=== PATIENT | male | born 1965 | race Caucasian/White ===

== ENCOUNTER 2022-01-09 09:43 | Emergency (ER) | payer OTHER, SELFPAY ==
[2022-01-09 09:44] VITALS: BP 160/92; PULSE 54; RESP 16; TEMP 36.6; O2SAT 99; BMI 31.1
[2022-01-09 10:22] LABS: Hematocrit 47.3 % (40-54); Hemoglobin 16.5 g/dL (13.0-16.5); Mean Corp Hgb Conc 34.9 g/dL (32-36); Mean Corpuscular Hgb 30.8 pg (27.0-32.0); Mean Corpuscular Volume 88.2 fL (80-94); RBC Distribution Width CV 12.2 % (11.6-14.6); Red Blood Count 5.36 M/mm3 (4.6-6.2)
[2022-01-09 10:23] LABS: Absolute Lymphocyte Count 1.66 X10^3/uL (0.83-4.51); Absolute Neutrophil Count 2.9 X10^3/uL (2.0-7.7); Basophil# 0.02 X10^3/uL; Basophil% 0.4 % (0-1); Eosinophil# 0.08 X10^3/uL; Eosinophils% 1.6 % (0-5); Lymphocyte # 1.66 X10^3/ul (0.83-4.51); Lymphocyte % 33.1 % (19-41); Mean Platelet Vol. 11.7 fl (6.2-12.0); Monocyte# 0.37 X10^3/uL; Monocyte% 7.4 % (0-10); NRBC Flagged by Analyzer 0 % (0-5); Neutrophil # 2.86 X10^3/uL (2.7-7.7); Neutrophil % 57.1 % (47-70); Platelet Count 153 K/mm3 (150-450); RBC Distribution Width SD 39.5 fl (35.1-43.9)
[2022-01-09 10:33] LABS: Anion Gap 2 (5-15); BUN 19 mg/dL (7-18); BUN/Creat Ratio 18.4 RATIO (10-20); Calcium,Total 8.9 mg/dL (8.5-10.1); Chloride 110 mmol/L (98-107); Creatinine, Serum 1.03 mg/dL (0.70-1.30); EST Glomerular Filtration Rate 79 mL/min (>60); Est Glom Filt Rate - Afr Amer 95 mL/min (>60); Glucose 121 mg/dL (74-106); Magnesium 1.9 mg/dL (1.6-2.6); Potassium 4.3 mmol/L (3.5-5.1); Sodium Level 139 mmol/L (136-145)
--- NOTE | 2022-01-09 11:13 | EX.ED.DYSGE1 ---
HPI History of Present Illness Chief Complaint: Numb/Ting Narrative Narrative: Patient presents with perioral numbness that he has had for the last few days. He states his symptoms began on , when he went hiking. He states that he had a hemorrhoid that he was concerned about because it was bleeding, and he states that he was embarrassed regarding it. He began having perioral numbness which she gets usually when he has anxiety. However, it extended to the right side of his face/cheek and has been relatively constant since then. He then states that it does come and go. He denies any headache. No arm or leg paresthesia, no problems with speech. He denies any other symptoms. He and his went to urgent care who referred him here. Past medical history does include anxiety, hypothyroidism, and hypertension. He admittedly only takes half of his tablet of metoprolol. He presents because of the perioral numbness. He states that it is mainly on the right side of his face, but it does extend to the left perioral area. [facility] Medical History Anxiety Cardiac murmur Judy's thyroiditis Hypothyroidism Home Medications cholecalciferol (vitamin D3) 25 mcg (1,000 unit) capsule 25 mcg PO BID cap 04/19/21 [History Last Taken Unknown] garlic 1250 mg tablet 1,250 mg PO BID tab 04/19/21 [History Last Taken Unknown] levothyroxine 75 mcg tablet tablet PO 04/19/21 [History Last Taken Unknown] mecobalamin (vitamin B12) 1,000 mcg chewable tablet 1,000 mcg PO DAILY 04/19/21 [History Last Taken Unknown] metoprolol succinate 25 mg tablet,extended release 24 hr ea PO 04/19/21 [History Last Taken Unknown] omega-3 fatty acids-fish oil 360 mg-1,200 mg capsule 1 cap PO BID 04/19/21 [History Last Taken Unknown] selenium 200 mcg capsule 200 mcg PO DAILY 04/19/21 [History Last Taken Unknown] zinc 50 mg tablet 50 mg PO DAILY 04/19/21 [History Last Taken Unknown] Allergy/AdvReac Type Severity Reaction Status Date / Time Iodinated Contrast Media Allergy Intermediate convulsions Verified 01/09/22 09:46 Family History Father Asthma Heart disease Hypertension Thyroid disorder Sister Cancer skin Surgical History History of appendectomy History of medial meniscus repair of right knee Social History Smoking Status: Former smoker ROS ROS ED ROS Narrative Constitutional: No fever, no chills. HEENT: No sore throat. No neck pain. No loss of vision. No rhinorrhea. Cardiovascular: No chest pain. No palpitations. No pedal edema. Respiratory: No cough, no shortness of breath. Abdominal: No abdominal pain. No nausea. No vomiting. Genitourinary: No dysuria. No hematuria. Musculoskeletal: No myalgias. No arthralgias. Neurologic: No headaches. No dizziness. No lightheadedness. Positive perioral numbness with paresthesias of right side of face/cheek on occasion. Skin: No rash. No change in color. Psychiatric: No depression. No anxiety. EXAM Physical Exam Narrative Exam Narrative: Afebrile. Vital signs noted. HEENT: Normocephalic. Atraumatic. PERRL, EOMI. Neck soft and supple. No point tenderness or step off. Cardiovascular: Regular rate and rhythm. No murmurs, rubs, or gallops appreciated. Respiratory: No tachypnea. Lungs clear to auscultation bilaterally. Gastrointestinal: Abdomen soft, nontender, with normoactive bowel sounds. No rebound or guarding. Neurological: Awake. Alert. Oriented. Nonfocal, nonlateralizing. NIH stroke scale is 0. No noted facial droop. No noted Dietrich's palsy. Skin: No rash. Normal color. No pallor. Musculoskeletal: No pedal edema. Full range of motion extremities. Const Vital Signs: 01/09/22 09:44 Temperature 97.9 F Temperature Source Temporal Pulse Rate 54 L Respiratory Rate 16 Blood Pressure 160/92 H Blood Pressure Mean 114 Pulse Ox 99 Oxygen Delivery Method Room Air MDM MDM MDM Narrative Medical decision making narrative: I had a lengthy discussion with the patient and his . I do not feel that a CT of the brain is indicated. There is no evidence of any deficit. I did check a CBC and he has a normal hemoglobin of 16.5. There is no pallor on examination. I do not feel that he has lost a large amount of blood from his reported hemorrhoid. His electrolytes are grossly unremarkable. He has a chloride elevated at 110 which I think is nonspecific. Although his BUN is elevated at 19 with a creatinine of 1.03, I do not feel that this is a profound dehydration that requires IV fluids. His magnesium is normal at 1.9. Calcium normal at 8.9. Glucose appropriately elevated at 121 with a low anion gap of 2. When we were discussing his results, it was noted by his that he does have Xanax written for when he has anxiety. However, he does not like to take this. I do feel that the numbness around his mouth may have something to do with mild anxiety. He was told to take his medications as prescribed and follow-up with his primary care provider. I feel he can be discharged safely home with follow-up. Return instructions to the emergency department were reviewed. Disposition is discharged home in stable condition. Lab Data Labs: Laboratory Results - last 24 hr 01/09/22 01/09/22 10:15 10:15 WBC 5.0 RBC 5.36 Hgb 16.5 Hct 47.3 MCV 88.2 MCH 30.8 MCHC 34.9 RDW Std Deviation 39.5 RDW Coeff of Марина 12.2 Plt Count 153 MPV 11.7 Immature Gran % (Auto) 0.400 Neut % (Auto) 57.1 Lymph % (Auto) 33.1 [place] % (Auto) 7.4 Eos % (Auto) 1.6 Baso % (Auto) 0.4 Absolute Neuts (auto) 2.9 Absolute Lymphs (auto) 1.66 Nucleated RBC % 0 Sodium 139 Potassium 4.3 Chloride 110 H Carbon Dioxide 27.0 Anion Gap 2 L BUN 19 H Creatinine 1.03 Estim Creat Clear Calc 85.80 Est GFR (MDRD) Af Amer 95 Est GFR (MDRD) Non-Af 79 BUN/Creatinine Ratio 18.4 Glucose 121 H Calcium 8.9 Magnesium 1.9 Discharge Plan Triage Chief Complaint: Numb/Ting ED Provider: Shady Reyes Dx/Rx/DC Orders Clinical Impression: Perioral numbness Instructions: ED Neuropathy, Peripheral Prescriptions: No Action levothyroxine 75 mcg tablet PO RF: 0 metoprolol succinate 25 mg tablet extended release 24 hr PO RF: 0 cholecalciferol (vitamin D3) 25 mcg (1,000 unit) capsule 25 mcg PO BID RF: 0 garlic 1,250 mg tablet 1,250 mg PO BID RF: 0 B12 Active 1,000 mcg tablet,chewable 1,000 mcg PO DAILY RF: 0 selenium 200 mcg capsule 200 mcg PO DAILY RF: 0 omega-3 fatty acids-fish oil [Fish Oil] 360-1,200 mg capsule 1 cap PO BID RF: 0 zinc 50 mg tablet 50 mg PO DAILY RF: 0 Primary Care Provider: Alverto Ceja Referrals: Alverto Ceja, [Primary Care Provider] - 1-2 Days if not improving Disposition Disposition: Home, Self Care
== END 2022-01-09 11:28 | disposition home or self-care (01) ==
PROVIDERS: Emergency Provider Emergency Medicine; PCP Student in an Organized Health Care Education/Training Program; Visit Provider Emergency Medicine
DX: R20.2 Paresthesia of skin (principal); F41.9 Anxiety disorder, unspecified; I10 Essential (primary) hypertension; E03.9 Hypothyroidism, unspecified; Z79.890 Hormone replacement therapy; Z79.899 Other long term (current) drug therapy; Z87.891 Personal history of nicotine dependence
CPT/HCPCS: 80048; 83735; 85025; 99283; A4216

== ENCOUNTER 2022-07-02 01:56 | Emergency (ER) | payer OTHER, SELFPAY ==
[2022-07-02 01:57] VITALS: BP 152/95; PULSE 79; RESP 15; TEMP 36.4; O2SAT 97; BMI 27.5
--- NOTE | 2022-07-02 02:00 | ED.RN ---
NO OLD EKGS ON FILE
--- NOTE | 2022-07-02 02:17 | EKG12_ITS ---
Test Reason : CP Blood Pressure : / mmHG Vent. Rate : 084 BPM Atrial Rate : 084 BPM P-R Int : 126 ms QRS Dur : 092 ms QT Int : 406 ms P-R-T Axes : 011 033 038 degrees QTc Int : 479 ms Normal sinus rhythm Low voltage QRS (Limb Leads) Septal infarct , age undetermined Abnormal ECG Confirmed by JO ANN CONNER, EDIL ([id number]), acquisition editor SHELBY LASSITER ([id number]) on 07/05/2022 7:48:43 AM Referred By: WILLIS Confirmed By:EDIL CHERRY MD
--- NOTE | 2022-07-02 02:17 | RAD_ITS ---
EXAM: XR CHEST, 1 VIEW CLINICAL INDICATION: chest pain TECHNIQUE: Frontal view of the chest. This report was created using [employer] report generation technology. COMPARISON: None. FINDINGS: LUNGS AND PLEURAL SPACES: Unremarkable. No consolidation or edema. No pneumothorax. No effusion. HEART: Unremarkable. Cardiac silhouette not enlarged. MEDIASTINUM: Central airways and mediastinal contour are unremarkable. BONES/JOINTS: Unremarkable. SOFT TISSUES: Unremarkable. RAD/Chest 1 View (Portable) IMPRESSION: No radiographic evidence of acute cardiopulmonary disease. Electronically Signed: Shashi Ferrara MD at 2:50 EDT ,
[2022-07-02 02:26] LABS: Absolute Lymphocyte Count 3.12 X10^3/uL (0.83-4.51); Absolute Neutrophil Count 4.7 X10^3/uL (2.0-7.7); Basophil# 0.04 X10^3/uL; Basophil% 0.5 % (0-1); Eosinophil# 0.16 X10^3/uL; Eosinophils% 1.9 % (0-5); Hematocrit 45.4 % (40-54); Hemoglobin 15.4 g/dL (13.0-16.5); Lymphocyte # 3.12 X10^3/ul (0.83-4.51); Lymphocyte % 36.1 % (19-41); Mean Corp Hgb Conc 33.9 g/dL (32-36); Mean Corpuscular Hgb 30.3 pg (27.0-32.0); Mean Corpuscular Volume 89.4 fL (80-94); Mean Platelet Vol. 11.7 fl (6.2-12.0); Monocyte# 0.59 X10^3/uL; Monocyte% 6.8 % (0-10); NRBC Flagged by Analyzer 0 % (0-5); Neutrophil # 4.69 X10^3/uL (2.7-7.7); Neutrophil % 54.2 % (47-70); Platelet Count 148 K/mm3 (150-450); RBC Distribution Width CV 12.2 % (11.6-14.6); Red Blood Count 5.08 M/mm3 (4.6-6.2); White Blood Count 8.6 K/mm3 (4.4-11.0)
--- NOTE | 2022-07-02 02:30 | ED.VIS.CHEST ---
HPI History of Present Illness Chief Complaint: Chest Pain Detail of Chief Complaint: Back pain. History of bicuspid aortic valve and aortic aneurysm which ther Informant: patient and spouse/S.O. Onset/Context/Timing Onset: Today Timing: Continuous Quality: Positive for Aching Location: Substernal Current Severity: Mild Maximum Severity: Mild Worsened By: Nothing Relieved By: Nothing Associated Symptoms: Positive for - (Back pain associated with his chest pain.); Negative for Nausea, Vomiting, Diaphoresis, Dyspnea, Cough, Fever, Lightheadedness, Acid Reflux or Palpitations Narrative Narrative: 57-year-old male history of a bicuspid aortic valve and thoracic aneurysm which are being watched. He had a history of tachycardia for which she was on beta-nura recently that was stopped by his primary care physician. He does not smoke. He has never had cardiac disease otherwise. He has had upper back discomfort today and chest tightness which started about an hour or so ago. He is also having some neck discomfort. His pressure was elevated at home at 194/80. He denies any history of DVT or PE. No recent travel or surgery. No leg pain or swelling. No hemoptysis. Patient states that last time he had CAT scan dye had convulsions. If we need to obtain a CT of his chest which I do think we will due to his chest discomfort, back discomfort and elevated blood pressure with his history of bicuspid valve and thoracic aneurysm he will be pretreated with Solu-Medrol and Benadryl. Prior Similar Symptoms: Yes and No Recent Illness/Hospitalization: No CVD Risk Factors: Negative for Hypertension, Diabetes, Family History 1' </=55 or Smoking PE Risk Factors: Negative for Recent Travel/Surgery, Recent Immobilization, Prior DVT or PE, Cancer or OCP + Smoking + >/=35 TAD Risk Factors: Negative for Marfan's Syndrome [facility] Medical History (Updated 07/02/22 @ 05:[address] Mark Grullon MD) Anxiety Aortic aneurysm Cardiac murmur Former tobacco use Judy's thyroiditis Hypothyroidism Home Medications cholecalciferol (vitamin D3) 25 mcg (1,000 unit) capsule 25 mcg PO BID 04/19/21 [History Last Taken Unknown] garlic 1250 mg tablet 1,250 mg PO BID 04/19/21 [History Last Taken Unknown] levothyroxine 75 mcg tablet tablet PO 04/19/21 [History Last Taken Unknown] mecobalamin (vitamin B12) 1,000 mcg chewable tablet (B12 Active) 1,000 mcg PO DAILY 04/19/21 [History Last Taken Unknown] metoprolol succinate 25 mg tablet,extended release 24 hr ea PO 04/19/21 [History Last Taken Unknown] omega-3 fatty acids-fish oil 360 mg-1,200 mg capsule (Fish Oil) 1 cap PO BID 04/19/21 [History Last Taken Unknown] selenium 200 mcg capsule 200 mcg PO DAILY 04/19/21 [History Last Taken Unknown] zinc 50 mg tablet 50 mg PO DAILY 04/19/21 [History Last Taken Unknown] Allergy/AdvReac Type Severity Reaction Status Date / Time Iodinated Contrast Media Allergy Intermediate convulsions Verified 01/09/22 09:46 Family History Father Asthma Heart disease Hypertension Thyroid disorder Sister Cancer skin Surgical History (Updated 07/02/22 @ 05:[address] Mark Grullon MD) History of appendectomy History of medial meniscus repair of right knee Social History (Updated 07/02/22 @ 04:[address] Qing Regalado MD) household members: spouse Smoking Status: Former smoker how long ago did patient quit smoking: Smoked 1 ppd x 5 years, quit 1979. alcohol intake: current alcohol intake frequency: a few times a month substance use type: does not use ROS ROS ED ROS Narrative Chest discomfort. Intrascapular back discomfort. Review of Systems ROS Unobtainable: Denies due to encephalopathy Constitutional Constitutional ED: Denies chills or fever(s) Eyes Eyes: Reports none ENT ENT ED: Denies ear pain or rhinorrhea Cardiovascular Cardiovascular: Reports as per HPI and chest pain; Denies palpitations or racing heartbeat Respiratory/Chest Respiratory/Chest: Denies cough or dyspnea Gastrointestinal Gastrointestinal: Denies abdominal pain or constipation Genitourinary Genitourinary ED: Denies dysuria or hematuria Musculoskeletal Musculoskeletal: Reports back pain; Denies arthralgias Integumentary Denies abscess or Abrasions Neurologic Neurologic: Denies headache(s) Psychiatric Psychiatric: Denies anxiety Endocrine Endocrinology: Denies cold intolerance Hematologic/Lymphatic Hematologic/Lymphatic: Denies easy bleeding Allergic/Immunologic Allergic/Immunologic ED: Denies mouth swelling or tongue swelling EXAM Physical Exam Narrative Exam Narrative: Middle-aged male no acute distress vital signs stable afebrile. Pulse ox 97% on room air no signs hypoxia. H EENT exam unremarkable. Moist extremities. Neck nontender no JVD. Lungs clear to auscultation bilaterally. Heart regular rhythm no murmur rate about 75. Chest wall nontender. Abdomen soft nontender. Moving all 4 extremities. Calves nontender without edema or cords. Equal symmetrical 5/5 industrial recruiter strength. Radial pulses equal and symmetrical. Dorsi plantarflexion intact. Back no reproducible tenderness. Neurologically is awake alert with no focal motor deficits. Const Vital Signs: 07/02/22 01:57 07/02/22 03:10 07/02/22 03:10 Temperature 97.6 F L Temperature Source Oral Pulse Rate 79 72 Respiratory Rate 15 16 Blood Pressure 152/95 H 150/91 H Blood Pressure Mean 114 110 Pulse Ox 97 99 99 Oxygen Delivery Method Room Air Room Air Room Air 07/02/22 04:36 Temperature Temperature Source Pulse Rate 75 Respiratory Rate 13 Blood Pressure 129/78 H Blood Pressure Mean 95 Pulse Ox 97 Oxygen Delivery Method Room Air Positive well nourished and well developed; Negative for obese, cachectic, contractures or unkempt General Appearance ED: well developed and NAD; Negative for unkempt, cachectic, contractures or pallor Nutritional Appearance: Negative for cachectic or obese HEENT Reports moist mucous membranes normocephalic and atraumatic; Negative for trauma or tenderness Eyes PERRL and EOMs intact bilaterally General Eye ED: Negative for pale conjunctiva or scleral icterus Neck no lymphadenopathy, supple and no JVD General: Negative for tenderness Chest Wall inspection of chest normal and palpation of chest normal Chest: Negative for tenderness Resp normal respiratory effort and clear to auscultation bilaterally Effort and Inspection: Negative for respiratory distress or pain with movement Auscultation: Negative for rales, rhonchi or wheezes Cardio regular rate, regular rhythm, S1 normal heart sound, S2 normal heart sound and no murmurs Rate: Negative for bradycardia Rhythm: Negative for abnormal rhythm Peripheral Pulses: pulses 2+ throughout GI normal to inspection, nondistended, normoactive bowel sounds, soft to palpation, non-tender, non-distended and no masses Auscultation: Negative for hyperactive bowel sounds Back/Spine no CVA tenderness and no thoracic nor lumbar tenderness General Back: Negative for CVA tenderness Cervical Spine: Negative for cervical spine tenderness Extremity normal to inspection General Extremety ED: Negative for edema, pulses abnormal or tenderness General Extremity: Negative for edema or pulses abnormal Neuro oriented x3 and CN's II-XII intact bilaterally Sensorium / Orientation: awake, alert, oriented to person, oriented to place and oriented to time; Negative for confused, lethargic, stuporous or other Motor Exam: strength 5/5 throughout Psych mental status grossly normal Appearance: Negative for unkempt Attitude: No agitated Mood & Affect: anxious; Negative for depressed or tearful Skin no rashes or lesions noted General Skin Exam: Negative for jaundice or pallor Rashes: No rashes noted Trauma: Negative for abrasion Heart Score History: Moderately Suspicious ECG: Normal Age: >45 - <65 years Risk Factors: No Risk Factors Troponin: </= Normal Limit Score: 2 MDM MDM MDM Narrative Medical decision making narrative: 57-year-old male history of bicuspid aortic valve and thoracic aneurysm. Has atypical chest and back discomfort I did not reproducible. I am actually less concern for myocardial infarction in the a.m. for ruling out a dissection. Patient is anxious about getting a CT due to a prior reaction. He will be worked up from a cardiac standpoint. I will hold aspirin at this time. I will pretreated with Solu-Medrol and Benadryl thinking that we will need to do a CTA of his chest to evaluating to rule out a dissection. Repeat exam patient is doing well at 3:20 AM. We discussed his work-up and so far is unremarkable. He is comfortable obtaining the CTA of his chest due to his risk factors and the nature of his discomfort with back pain. He was pretreated with both Solu-Medrol and Benadryl. I have also discussed this with the final operations technician. Patient doing well after CAT scan at 4:[address] results and second troponin. Currently is doing well. I went over his current test results. Patient doing well at 5:19 AM. Went over all his test results and CTA. He will be discharged to home. Lab Data Attestation: I reviewed the patient's lab results. Lab results narrative: CBC shows a white count 8. H&H 15 and 45. Platelets slightly low at 148,000. Electrolytes of potassium at 3.3. Gap of 5 BUN of 20 creatinine of 1. Glucose 102. Troponin 6. Chest x-ray negative. Repeat troponin was also within normal limits at 4. Labs: Laboratory Results - last 24 hr 07/02/22 07/02/22 07/02/22 02:00 02:00 04:34 WBC 8.6 RBC 5.08 Hgb 15.4 Hct 45.4 MCV 89.4 MCH 30.3 MCHC 33.9 RDW Std Deviation 40.0 RDW Coeff of Марина 12.2 Plt Count 148 L MPV 11.7 Immature Gran % (Auto) 0.500 Neut % (Auto) 54.2 Lymph % (Auto) 36.1 [place] % (Auto) 6.8 Eos % (Auto) 1.9 Baso % (Auto) 0.5 Absolute Neuts (auto) 4.7 Absolute Lymphs (auto) 3.12 Nucleated RBC % 0 Sodium 142 Potassium 3.3 L Chloride 108 H Carbon Dioxide 29.0 Anion Gap 5 BUN 20 H Creatinine 1.06 Estim Creat Clear Calc 82.36 Est GFR (MDRD) Af Amer 92 Est GFR (MDRD) Non-Af 76 BUN/Creatinine Ratio 18.9 Glucose 102 Calcium 8.7 Troponin I High Sens 6 4 Radiography Chest X-Ray - ED: 1 View, Read by ED Physician, Read by Radiologist, Heart, Lungs, Mediastinum, Bony Structures, No Acute Disease and Chronic Changes Diagnostic Testing: Clinical Impression(s) from Imaging Studies Chest X-Ray 07/02/22 02:17 IMPRESSION: No radiographic evidence of acute cardiopulmonary disease. Electronically Signed: Shashi Ferrara MD at 2:50 EDT , Chest CTA 07/02/22 03:23 IMPRESSION: 1. 4.5 cm ascending thoracic aorta without aortic dissection. 2. No PE, pneumonia or other acute disease. Electronically Signed: Shashi Ferrara MD at 4:17 EDT , Chest x-ray, portable, single view interpreted by myself and radiologist shows no acute abnormality. Normal cardiac silhouette. Normal mediastinum. CT of the chest as read by the radiologist and reviewed by me showed a 4.5 cm ascending aorta. No dissection. No bleeding. No PE. Rhythm Strip Rhythm Strip: Sinus Rhythm Rate: 84 Ectopy: None EKG Initial EKG: Attestation: I personally reviewed and interpreted this EKG as follows: Interpretation: Sinus Rhythm and No Acute Injury Pattern Comments: Normal sinus rhythm rate 84 no acute signs of HI or ischemia. No ST elevation. Discharge Plan Triage Chief Complaint: Chest Pain ED Provider: Mark Grullon Dx/Rx/DC Orders Clinical Impression: Anxiety, Chest pain, History of repair of thoracic aortic aneurysm Instructions: ED Chest Pain, Uncertain Cause Prescriptions: No Action levothyroxine 75 mcg tablet PO metoprolol succinate 25 mg tablet extended release 24 hr PO Label Comments: TAKE 1 TABLET BY MOUTH EVERYDAY AT BEDTIME cholecalciferol (vitamin D3) 25 mcg (1,000 unit) capsule 25 mcg PO BID garlic 1,250 mg tablet 1,250 mg PO BID B12 Active 1,000 mcg tablet,chewable 1,000 mcg PO DAILY selenium 200 mcg capsule 200 mcg PO DAILY omega-3 fatty acids-fish oil [Fish Oil] 360-1,200 mg capsule 1 cap PO BID zinc 50 mg tablet 50 mg PO DAILY Primary Care Provider: Alverto Ceja Referrals: Alverto Ceja DO [Primary Care Provider] - As Needed Activity Restrictions/Additional Instructions: Your test results were good. Both heart enzymes were normal. Your CAT scan of your chest showed a 4.5 cm aortic aneurysm. No dissection. No bleeding. No blood clot. Disposition Disposition: Home, Self Care
[2022-07-02] MEDS: MethylPREDNISolone 125 MG/2 ML Vial IV (02:45)
[2022-07-02] MEDS: DiphenhydrAMINE 50 MG/ML Syringe 25 MG IV (02:45)
[2022-07-02 02:50] LABS: Anion Gap 5 (5-15); BUN 20 mg/dL (7-18); BUN/Creat Ratio 18.9 RATIO (10-20); Calcium,Total 8.7 mg/dL (8.5-10.1); Chloride 108 mmol/L (98-107); Creatinine, Serum 1.06 mg/dL (0.70-1.30); EST Glomerular Filtration Rate 76 mL/min (>60); Est Glom Filt Rate - Afr Amer 92 mL/min (>60); Estimated Creatinine Clearance 82.36 ml/min; Glucose 102 mg/dL (74-106); Potassium 3.3 mmol/L (3.5-5.1); Sodium Level 142 mmol/L (136-145); Troponin-I HS (w/2H Reflex) 6 pg/mL (3.0-78.0)
[2022-07-02 03:10] VITALS: BP 150/91; PULSE 72; RESP 16; O2SAT 99
--- NOTE | 2022-07-02 03:23 | CT_ITS ---
EXAM: CT ANGIOGRAPHY CHEST WITHOUT AND WITH INTRAVENOUS CONTRAST CLINICAL INDICATION: Possible dissection. CP w/ back pain. Bicuspid aortic valve TECHNIQUE: Helically acquired angiography images were obtained of the chest without and with intravenous contrast. CTDIvol = ( 14.13 ) mGy, DLP = ( 507.45 ) mGycm This CT exam was performed using one or more of the following dose reduction techniques: automated exposure control, adjustment of the mA and/or kV according to patient size, and/or use of iterative reconstruction technique. This report was created using [employer] report generation technology. MIP reconstructed images were created and reviewed. CONTRAST: IV 100mL [id number] COMPARISON: None. FINDINGS: PULMONARY ARTERIES: No PE. Normal in caliber. No evidence of pulmonary embolism. AORTA: 4.5 cm ascending thoracic aorta. No dissection. GREAT VESSELS OF AORTIC ARCH: Unremarkable. Normal in caliber. No evidence of dissection. LUNGS AND PLEURAL SPACES: Subsegmental atelectasis at the lower lobes posteriorly. No mass. No pleural effusion or thickening. No pneumothorax. HEART: No cardiomegaly or pericardial effusion. No signs of right heart strain, ratio of right ventricle to left ventricle measures less than 1. MEDIASTINUM: Unremarkable. No mediastinal or hilar adenopathy. Esophagus is unremarkable. No hiatal hernia. THYROID: Unremarkable. No thyroid lesions. BONES/JOINTS: Unremarkable. No suspicious lytic or blastic abnormality. LIVER: Small cysts involving the liver are benign. SPLEEN: Nonspecific splenomegaly. CT/CTA Chest W/WO Contrast IMPRESSION: 1. 4.5 cm ascending thoracic aorta without aortic dissection. 2. No PE, pneumonia or other acute disease. Electronically Signed: Shashi Ferrara MD at 4:17 EDT ,
[2022-07-02 04:24] LABS: Reflex Troponin-HS? (from REC) Y
[2022-07-02 04:36] VITALS: BP 129/78; PULSE 75; RESP 13; O2SAT 97
[2022-07-02 05:03] LABS: Troponin-I HS 4 pg/mL (3.0-78.0)
[2022-07-02 05:42] VITALS: BP 131/81
== END 2022-07-02 05:43 | disposition home or self-care (01) ==
PROVIDERS: Emergency Provider Emergency Medicine; PCP Student in an Organized Health Care Education/Training Program; Visit Provider Emergency Medicine
DX: R07.9 Chest pain, unspecified (principal); F41.9 Anxiety disorder, unspecified; R03.0 Elevated blood-pressure reading, without diagnosis of hypertension; M54.9 Dorsalgia, unspecified; Q23.1 Congenital insufficiency of aortic valve; E03.9 Hypothyroidism, unspecified; E06.3 Autoimmune thyroiditis; Z86.79 Personal history of other diseases of the circulatory system; Z87.891 Personal history of nicotine dependence; Z79.899 Other long term (current) drug therapy
CPT/HCPCS: 71045; 71275; 80048; 80053; 82550; 83735; 84100; 84439; 84443; 84481; 84484; 85025; 85610; 93005; 96374; 96375; 99282; 99283; Q9967; A4216

== ENCOUNTER 2022-07-02 14:00 | Emergency (ER) | payer OTHER, SELFPAY ==
[2022-07-02 14:01] VITALS: BP 141/98; PULSE 95; RESP 18; TEMP 36.4; O2SAT 99
[2022-07-02 14:55] LABS: Absolute Lymphocyte Count 0.57 X10^3/uL (0.83-4.51); Absolute Neutrophil Count 5.8 X10^3/uL (2.0-7.7); Hematocrit 46.3 % (40-54); Hemoglobin 15.9 g/dL (13.0-16.5); Lymphocyte # 0.57 X10^3/ul (0.83-4.51); Lymphocyte % 8.6 % (19-41); Mean Corp Hgb Conc 34.3 g/dL (32-36); Mean Corpuscular Hgb 30.2 pg (27.0-32.0); Mean Platelet Vol. 11.6 fl (6.2-12.0); Monocyte# 0.27 X10^3/uL; Monocyte% 4.1 % (0-10); NRBC Flagged by Analyzer 0 % (0-5); Neutrophil # 5.78 X10^3/uL (2.7-7.7); Neutrophil % 87.1 % (47-70); POSITIVE DIFFERENTIAL YES; Platelet Count 146 K/mm3 (150-450); RBC Distribution Width SD 38.6 fl (35.1-43.9); Red Blood Count 5.26 M/mm3 (4.6-6.2); White Blood Count 6.6 K/mm3 (4.4-11.0)
[2022-07-02 14:57] LABS: Differential Indicated SCAN CRITERIA MET
[2022-07-02 15:19] LABS: ALB/GLOB Ratio 1.3 RATIO (0.9-2.4); AST(SGOT) 15 U/L (15-37); Alanine Aminotransfer ALT/SGPT 29 U/L (16-61); Albumin, Serum 4.1 g/dL (3.2-5.0); Alkaline Phosphatase 75 U/L (45-117); Anion Gap 7 (5-15); BUN 19 mg/dL (7-18); BUN/Creat Ratio 18.6 RATIO (10-20); Calcium,Total 9.2 mg/dL (8.5-10.1); Chloride 110 mmol/L (98-107); Creatinine, Serum 1.02 mg/dL (0.70-1.30); EST Glomerular Filtration Rate 79 mL/min (>60); Est Glom Filt Rate - Afr Amer 96 mL/min (>60); Estimated Creatinine Clearance 10.01 ml/min; Globulin 3.2 g/dL (2.2-4.2); Glucose 187 mg/dL (74-106); Potassium 3.8 mmol/L (3.5-5.1); Protein, Total 7.3 g/dL (6.4-8.2); Sodium Level 140 mmol/L (136-145); Thyroid Stim Hormone (TSH) 1.01 uIU/mL (0.358-3.74)
[2022-07-02 15:32] LABS: Troponin-I HS < 3 pg/mL (3.0-78.0)
[2022-07-02 15:38] LABS: Differential Comment SCANNED
--- NOTE | 2022-07-02 15:45 | ED.VIS.CHEST ---
HPI History of Present Illness Chief Complaint: Chest Other Informant: patient and spouse/S.O. Narrative Narrative: Patient was sent in for evaluation for possible thyroid storm. They were seen here last night/early this morning for chest pain. He states he has been having chest pain. He had a complete work-up because of his unique history. CT scan of the chest was also normal. 2 troponins were normal. He has not been having elevated temperatures. He has not been having confusion or agitation. No nausea vomiting diarrhea. For weeks now his heart rate has been going up high and down low. Its been in the low 100s but is also been down in the 40s. Evidently they stopped his metoprolol about 2 or so weeks ago. It sounds like it was stopped due to high heart rate although I am suspicious this was stopped due to low heart rate. They also stopped his levothyroxine about a week or so ago. Patient is also not had any problems with irregular heartbeat that he noticed. No trouble breathing. There evidently have been a lot of outpatient labs done recently working up his thyroid disease. 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 [facility] Medical History Anxiety Aortic aneurysm Cardiac murmur Former tobacco use Judy's thyroiditis Hypothyroidism Home Medications cholecalciferol (vitamin D3) 25 mcg (1,000 unit) capsule 25 mcg PO BID 04/19/21 [History Last Taken Unknown] garlic 1250 mg tablet 1,250 mg PO BID 04/19/21 [History Last Taken Unknown] levothyroxine 75 mcg tablet tablet PO 04/19/21 [History Last Taken Unknown] mecobalamin (vitamin B12) 1,000 mcg chewable tablet (B12 Active) 1,000 mcg PO DAILY 04/19/21 [History Last Taken Unknown] metoprolol succinate 25 mg tablet,extended release 24 hr ea PO 04/19/21 [History Last Taken Unknown] omega-3 fatty acids-fish oil 360 mg-1,200 mg capsule (Fish Oil) 1 cap PO BID 04/19/21 [History Last Taken Unknown] selenium 200 mcg capsule 200 mcg PO DAILY 04/19/21 [History Last Taken Unknown] zinc 50 mg tablet 50 mg PO DAILY 04/19/21 [History Last Taken Unknown] Allergy/AdvReac Type Severity Reaction Status Date / Time Iodinated Contrast Media Allergy Intermediate convulsions Verified 07/02/22 14:04 Family History Father Asthma Heart disease Hypertension Thyroid disorder Sister Cancer skin Surgical History History of appendectomy History of medial meniscus repair of right knee Social History household members: spouse Smoking Status: Former smoker how long ago did patient quit smoking: Smoked 1 ppd x 5 years, quit 1979. alcohol intake: current alcohol intake frequency: a few times a month substance use type: does not use ROS ROS ED Constitutional Constitutional ED: Denies chills or fever(s) Eyes Eyes: Denies blurry vision or change in vision ENT ENT ED: Denies rhinorrhea or sore throat Cardiovascular Cardiovascular: Reports chest pain Respiratory/Chest Respiratory/Chest: Denies dyspnea Gastrointestinal Gastrointestinal: Denies diarrhea or vomiting Genitourinary Genitourinary ED: Denies dysuria Musculoskeletal Musculoskeletal: Denies arthralgias or myalgias Integumentary Denies rash Neurologic Neurologic: Denies headache(s), paresthesias or weakness Psychiatric Psychiatric: Denies anxiety or depression Endocrine Endocrinology: Denies polydipsia or polyuria Hematologic/Lymphatic Hematologic/Lymphatic: Denies easy bleeding or easy bruising Allergic/Immunologic Allergic/Immunologic ED: Denies urticaria EXAM Physical Exam Const Vital Signs: 07/02/22 14:01 07/02/22 15:07 07/02/22 16:12 Temperature 97.5 F L Temperature Source Temporal Pulse Rate 95 95 Respiratory Rate 18 16 Respiratory Effort Normal Non-Labored Respiratory Pattern Normal Blood Pressure 141/98 H 143/79 H Blood Pressure Mean 112 100 Pulse Ox 99 96 Oxygen Delivery Method Room Air Room Air Positive well nourished and well developed General Appearance ED: well developed and NAD HEENT Reports moist mucous membranes; Denies dry mucous membranes Mouth ED: No dry mucous membranes Mouth: No dry mucous membranes Eyes General Eye ED: Negative for scleral icterus Neck no lymphadenopathy and no JVD Chest Wall inspection of chest normal Resp normal respiratory effort and clear to auscultation bilaterally Cardio regular rate Rate: Negative for tachycardic GI normal to inspection, nondistended, normoactive bowel sounds and non-tender Back/Spine no CVA tenderness Extremity General Extremety ED: Negative for edema General Extremity: Negative for edema Neuro oriented x3 Psych mental status grossly normal Attitude: No agitated Mood & Affect: Negative for anxious or tearful Skin no rashes or lesions noted MDM MDM MDM Narrative Medical decision making narrative: I was able to get back to both TSH as well as T3-T4 her TSH and free T4 were normal. Free T3 was just a little low. Patient's was able to pull his recent studies off of my chart. TSH last was 3.44. Before that it was 0.98. Free T4 was 1.9 and before that in January it was 1.8. Free T3 was 2.5 and in November was 3.6. All the recent labs are from the eighth of this month. Because the patient's heart rate over 90, he does get 5 points on the Hicks-Wartofsky point scale for thyrotoxicosis. But this still gives him a total points of 5. This is highly unlikely to be thyrotoxicosis. I think follow-up is appropriate. They are comfortable with this plan. Of note, the patient did have adjustment at chiropractor today which has helped his pain that he came in with. He does not want further imaging for that. I think this is reasonable since we just had CT scan this morning. Lab Data Attestation: I reviewed the patient's lab results. Labs: Laboratory Results - last 24 hr 07/02/22 07/02/22 07/02/22 14:40 14:40 14:40 WBC 6.6 RBC 5.26 Hgb 15.9 Hct 46.3 MCV 88.0 MCH 30.2 MCHC 34.3 RDW Std Deviation 38.6 RDW Coeff of Марина 12.0 Plt Count 146 L MPV 11.6 Immature Gran % (Auto) 0.200 Neut % (Auto) 87.1 H Lymph % (Auto) 8.6 L [place] % (Auto) 4.1 Eos % (Auto) 0.0 Baso % (Auto) 0.0 Absolute Neuts (auto) 5.8 Absolute Lymphs (auto) 0.57 L Nucleated RBC % 0 Differential Comment SCANNED PT 13.1 INR 1.0 Sodium 140 Potassium 3.8 Chloride 110 H Carbon Dioxide 23.0 Anion Gap 7 BUN 19 H Creatinine 1.02 Estim Creat Clear Calc 10.01 Est GFR (MDRD) Af Amer 96 Est GFR (MDRD) Non-Af 79 BUN/Creatinine Ratio 18.6 Glucose 187 H Calcium 9.2 Phosphorus Magnesium Total Bilirubin 1.00 AST 15 ALT 29 Alkaline Phosphatase 75 Total Creatine Kinase Troponin I High Sens Total Protein 7.3 Albumin 4.1 Globulin 3.2 Albumin/Globulin Ratio 1.3 TSH 1.01 Free T4 Free T3 pg/dL 07/02/22 07/02/22 14:40 15:09 WBC RBC Hgb Hct MCV MCH MCHC RDW Std Deviation RDW Coeff of Марина Plt Count MPV Immature Gran % (Auto) Neut % (Auto) Lymph % (Auto) [place] % (Auto) Eos % (Auto) Baso % (Auto) Absolute Neuts (auto) Absolute Lymphs (auto) Nucleated RBC % Differential Comment PT INR Sodium Potassium Chloride Carbon Dioxide Anion Gap BUN Creatinine Estim Creat Clear Calc Est GFR (MDRD) Af Amer Est GFR (MDRD) Non-Af BUN/Creatinine Ratio Glucose Calcium Phosphorus 2.9 Magnesium 2.1 Total Bilirubin AST ALT Alkaline Phosphatase Total Creatine Kinase 94 Troponin I High Sens < 3 L Total Protein Albumin Globulin Albumin/Globulin Ratio TSH Free T4 1.06 Free T3 pg/dL 2.0 L EKG Initial EKG: Comments: EKG done for evaluation of heart rate and chest pain. EKG read by me shows a sinus rhythm overall rate of 98. There are relatively frequent PVCs that do appear to be unifocal. No sign of atrial fibrillation. No notable ST elevation or depression. SD interval, QRS duration and QTc are normal. EKG is similar to this morning axillary does show more PVCs. Discharge Plan Triage Chief Complaint: Chest Other ED Provider: Mikhail Briones Dx/Rx/DC Orders Clinical Impression: Chest pain, Judy's thyroiditis Instructions: Common Thyroid Problems Prescriptions: No Action levothyroxine 75 mcg tablet PO metoprolol succinate 25 mg tablet extended release 24 hr PO Label Comments: TAKE 1 TABLET BY MOUTH EVERYDAY AT BEDTIME cholecalciferol (vitamin D3) 25 mcg (1,000 unit) capsule 25 mcg PO BID garlic 1,250 mg tablet 1,250 mg PO BID B12 Active 1,000 mcg tablet,chewable 1,000 mcg PO DAILY selenium 200 mcg capsule 200 mcg PO DAILY omega-3 fatty acids-fish oil [Fish Oil] 360-1,200 mg capsule 1 cap PO BID zinc 50 mg tablet 50 mg PO DAILY Primary Care Provider: Alverto Ceja Referrals: Alverto Ceja DO [Primary Care Provider] - Keep Joshua appointment Disposition Disposition: Home, Self Care
--- NOTE | 2022-07-02 15:49 | EKG12_ITS ---
Test Reason : ARRYHTHMIA Blood Pressure : / mmHG Vent. Rate : 098 BPM Atrial Rate : 098 BPM P-R Int : 150 ms QRS Dur : 090 ms QT Int : 368 ms P-R-T Axes : 033 025 012 degrees QTc Int : 469 ms Sinus rhythm with frequent Premature ventricular complexes Low voltage QRS (Limb Leads) Septal infarct , age undetermined Abnormal ECG Confirmed by JO ANN CONNER, EDIL ([id number]), supervising editor news reel SHELBY LASSITER ([id number]) on 07/05/2022 7:49:06 AM Referred By: GRIS Confirmed By:EDIL CHRERY MD
[2022-07-02 16:10] LABS: Prothrombin Time (Protime)PT. 13.1 SECONDS (11.7-14.9)
[2022-07-02 16:12] VITALS: BP 143/79; PULSE 95; RESP 16; O2SAT 96
[2022-07-02 16:26] LABS: CPK Total, Creatine Kinase 94 U/L (39-308); Magnesium 2.1 mg/dL (1.6-2.6); Phosphorus 2.9 mg/dL (2.5-4.9); T4 Free Direct 1.06 ng/dL (0.76-1.46)
[2022-07-02 17:54] VITALS: BP 122/81; RESP 16; O2SAT 98
== END 2022-07-02 17:54 | disposition home or self-care (01) ==
PROVIDERS: Emergency Provider Emergency Medicine; PCP Student in an Organized Health Care Education/Training Program; Visit Provider Emergency Medicine
DX: R07.9 Chest pain, unspecified (principal); E06.3 Autoimmune thyroiditis; Z87.891 Personal history of nicotine dependence; Z79.899 Other long term (current) drug therapy
CPT/HCPCS: 80053; 82550; 83735; 84100; 84439; 84443; 84481; 84484; 85025; 85610; 93005; 99282; A4216

== ENCOUNTER 2023-02-23 12:17 | Outpatient (RCR) | payer OTHER, SELFPAY | END 2023-03-05 23:59 | LOC: NS 12:17 | PROVIDERS: PCP Student in an Organized Health Care Education/Training Program; Referring Provider Student in an Organized Health Care Education/Training Program; Visit Provider Student in an Organized Health Care Education/Training Program | DX: Z71.3 Dietary counseling and surveillance (principal); R63.4 Abnormal weight loss; M62.81 Muscle weakness (generalized); M79.10 Myalgia, unspecified site; R10.84 Generalized abdominal pain; R53.83 Other fatigue; K90.41 Non-celiac gluten sensitivity; E73.9 Lactose intolerance, unspecified | CPT/HCPCS: 97802 ==

== ENCOUNTER → 2023-03-16 | Outpatient (CLI) | payer OTHER, SELFPAY ==
[2023-03-24 01:07] LABS: Almond <0.10 kU/L (Class 0); Apple <0.10 kU/L (Class 0); Banana <0.10 kU/L (Class 0); Barley, Whole Grain <0.10 kU/L (Class 0); Beef <0.10 kU/L (Class 0); Brazil Nut <0.10 kU/L (Class 0); Carrot <0.10 kU/L (Class 0); Cashew <0.10 kU/L (Class 0); Chicken <0.10 kU/L (Class 0); Codfish <0.10 kU/L (Class 0); Corn <0.10 kU/L (Class 0); Crab <0.10 kU/L (Class 0); Egg, White <0.10 kU/L (Class 0); Egg, Whole <0.10 kU/L (Class 0); Egg, Yolk <0.10 kU/L (Class 0); Garlic <0.10 kU/L (Class 0); Gluten <0.10 kU/L (Class 0); Hazelnut/Filbert <0.10 kU/L (Class 0); Lobster <0.10 kU/L (Class 0); Milk (Cow) <0.10 kU/L (Class 0); Oat <0.10 kU/L (Class 0); Onion <0.10 kU/L (Class 0); Orange <0.10 kU/L (Class 0); Pea <0.10 kU/L (Class 0); Peach <0.10 kU/L (Class 0); Peanut <0.10 kU/L (Class 0); Pecan <0.10 kU/L (Class 0); Pork <0.10 kU/L (Class 0); Potato, White <0.10 kU/L (Class 0); Rice <0.10 kU/L (Class 0); Salmon <0.10 kU/L (Class 0); Shrimp <0.10 kU/L (Class 0); Soybean <0.10 kU/L (Class 0); Strawberry <0.10 kU/L (Class 0); Tomato <0.10 kU/L (Class 0); Tuna <0.10 kU/L (Class 0); Turkey <0.10 kU/L (Class 0); Walnut, (Food) <0.10 kU/L (Class 0); Wheat <0.10 kU/L (Class 0); Yeast <0.10 kU/L (Class 0)
== END | disposition home or self-care (01) ==
PROVIDERS: PCP Student in an Organized Health Care Education/Training Program; Visit Provider Otolaryngology Otolaryngology/Facial Plastic Surgery
DX: T78.40XA Allergy, unspecified, initial encounter (principal)
CPT/HCPCS: 36415; 86003

== ENCOUNTER → 2023-04-14 | Outpatient (CLI) | payer OTHER, SELFPAY ==
[2023-04-14 07:41] LABS: Absolute Lymphocyte Count 1.34 X10^3/uL (0.83-4.51); Absolute Neutrophil Count 2.5 X10^3/uL (2.0-7.7); Basophil# 0.03 X10^3/uL; Basophil% 0.7 % (0-1); Eosinophil# 0.08 X10^3/uL; Eosinophils% 1.9 % (0-5); Hematocrit 45.3 % (40-54); Hemoglobin 15.6 g/dL (13.0-16.5); Lymphocyte # 1.34 X10^3/ul (0.83-4.51); Lymphocyte % 31.2 % (19-41); Mean Corp Hgb Conc 34.4 g/dL (32-36); Mean Corpuscular Hgb 31.4 pg (27.0-32.0); Mean Corpuscular Volume 91.1 fL (80-94); Mean Platelet Vol. 11.5 fl (6.2-12.0); NRBC Flagged by Analyzer 0 % (0-5); Neutrophil # 2.51 X10^3/uL (2.7-7.7); Neutrophil % 58.5 % (47-70); Platelet Count 147 K/mm3 (150-450); RBC Distribution Width CV 12.5 % (11.6-14.6); RBC Distribution Width SD 41.1 fl (35.1-43.9); Red Blood Count 4.97 M/mm3 (4.6-6.2); White Blood Count 4.3 K/mm3 (4.4-11.0)
[2023-04-14 07:50] LABS: Erythrocyte Sedimentation Rate 2 mm/hr (0-20)
[2023-04-14 08:20] LABS: ALB/GLOB Ratio 1.3 RATIO (0.9-2.4); AST(SGOT) 23 U/L (15-37); Alanine Aminotransfer ALT/SGPT 35 U/L (16-61); Albumin, Serum 3.7 g/dL (3.2-5.0); Alkaline Phosphatase 88 U/L (45-117); Anion Gap 6 (5-15); BUN 25 mg/dL (7-18); BUN/Creat Ratio 26.9 RATIO (10-20); CRP < 2.90 mg/L (0.0-3.0); Calcium,Total 8.3 mg/dL (8.5-10.1); Chloride 107 mmol/L (98-107); Creatinine, Serum 0.93 mg/dL (0.70-1.30); EST Glomerular Filtration Rate 88 mL/min (>60); Est Glom Filt Rate - Afr Amer 107 mL/min (>60); Globulin 2.9 g/dL (2.2-4.2); Glucose 99 mg/dL (74-106); LDH 168 U/L (87-241); Potassium 3.8 mmol/L (3.5-5.1); Protein, Total 6.6 g/dL (6.4-8.2); Sodium Level 139 mmol/L (136-145)
[2023-04-17 14:09] LABS: Anti-Centromere B Ab <0.2 AI (0.0-0.9); Anti-Chromatin <0.2 AI (0.0-0.9); Anti-Jo <0.2 AI (0.0-0.9); Anti-Scleroderma-70 AB <0.2 AI (0.0-0.9); Anti-dsDNA Ab <1 IU/mL (0-9); Endomysial Antibody IgA Negative (Negative); Immunoglobulin A 166 mg/dL (90-386); RNP Ab <0.2 AI (0.0-0.9); SJOGREN'S Anti-SS-A test < 0.2 AI (0.0-0.9); SJOGREN'S Anti-SS-B test < 0.2 AI (0.0-0.9); Smith Ab <0.2 AI (0.0-0.9); t-Transglutaminase IgA <2 U/mL (0-3)
[2023-04-20 01:07] LABS: Alpha-1-Globulins 0.2 g/dL (0.0-0.4); Alpha-2-Globulins 0.4 g/dL (0.4-1.0); Cytoplasmic Ab (C-ANCA) <1:20 titer (Neg:<1:20); Gamma Globulin 0.6 g/dL (0.4-1.8); Immunoglobulin A 172 mg/dL (90-386); Immunoglobulin E 11 IU/mL (6-495); Immunoglobulin G 777 mg/dL (603-1613); Immunoglobulin M 38 mg/dL (20-172); PROEL- TOTAL PROTEIN 6.1 g/dL (6.0-8.5); Perinuclear Ab (P-ANCA) <1:20 titer (Neg:<1:20)
== END | disposition home or self-care (01) ==
PROVIDERS: PCP Student in an Organized Health Care Education/Training Program; Referring Provider Nurse Practitioner Adult Health; Visit Provider Nurse Practitioner Adult Health
DX: K63.3 Ulcer of intestine (principal); R63.4 Abnormal weight loss
CPT/HCPCS: 36415; 80053; 82784; 82785; 83516; 83615; 84165; 85025; 85652; 86140; 86225; 86235; 86255; 86256; 86334

== ENCOUNTER → 2023-04-18 | Outpatient (CLI) | payer OTHER, SELFPAY ==
[2023-04-27 00:07] LABS: Calprotectin, Stool 255 ug/g (0-120)
== END | disposition home or self-care (01) ==
LOC: LAB 16:26 → LABSPEC 16:27
PROVIDERS: PCP Student in an Organized Health Care Education/Training Program; Referring Provider Nurse Practitioner Adult Health; Visit Provider Nurse Practitioner Adult Health
DX: K63.3 Ulcer of intestine (principal); K63.4 Enteroptosis; K58.9 Irritable bowel syndrome, unspecified
CPT/HCPCS: 83630; 83993

== ENCOUNTER → 2023-09-01 | Outpatient (CLI) | payer OTHER, SELFPAY ==
[2023-09-01 09:13] LABS: Erythrocyte Sedimentation Rate 3 mm/hr (0-20)
[2023-09-01 09:32] LABS: Amylase 70 U/L (25-115); CRP < 2.90 mg/L (0.0-3.0); Lipase 68 U/L (13-75)
[2023-09-04 11:08] LABS: Anti-Centromere B Ab <0.2 AI (0.0-0.9); Anti-Chromatin <0.2 AI (0.0-0.9); Anti-Jo <0.2 AI (0.0-0.9); Anti-Scleroderma-70 AB <0.2 AI (0.0-0.9); Anti-dsDNA Ab <1 IU/mL (0-9); RNP Ab <0.2 AI (0.0-0.9); SJOGREN'S Anti-SS-A test < 0.2 AI (0.0-0.9); SJOGREN'S Anti-SS-B test < 0.2 AI (0.0-0.9); Smith Ab <0.2 AI (0.0-0.9)
[2023-09-05 12:09] LABS: Albumin 4.2 g/dL (2.9-4.4); Alpha-1-Globulins 0.2 g/dL (0.0-0.4); Alpha-2-Globulins 0.5 g/dL (0.4-1.0); Cytoplasmic Ab (C-ANCA) <1:20 titer (Neg:<1:20); Endomysial Antibody IgA Negative (Negative); Gamma Globulin 0.7 g/dL (0.4-1.8); Immunoglobulin A 198 mg/dL (90-386); Immunoglobulin E 13 IU/mL (6-495); Immunoglobulin G 827 mg/dL (603-1613); Immunoglobulin M 61 mg/dL (20-172); PROEL- TOTAL PROTEIN 6.6 g/dL (6.0-8.5); Perinuclear Ab (P-ANCA) <1:20 titer (Neg:<1:20); t-Transglutaminase IgA <2 U/mL (0-3)
[2023-09-06 00:06] LABS: Pancreatic Elastase, Fecal 230 (>200)
[2023-09-14 00:07] LABS: Calprotectin, Stool 30 ug/g (0-120); Fats, Neutral Normal (.); Fats, Total Increased (.)
== END | disposition home or self-care (01) ==
PROVIDERS: PCP Student in an Organized Health Care Education/Training Program; Referring Provider Internal Medicine Gastroenterology; Visit Provider Internal Medicine Gastroenterology
DX: K90.41 Non-celiac gluten sensitivity (principal); R63.4 Abnormal weight loss; K63.3 Ulcer of intestine
CPT/HCPCS: 36415; 82150; 82653; 82705; 82784; 82785; 83516; 83630; 83690; 83993; 84165; 85652; 86140; 86225; 86235; 86255; 86256; 86334

== ENCOUNTER → 2024-07-17 | Outpatient (CLI) | payer OTHER, SELFPAY ==
[2024-07-17 13:36] LABS: Anion Gap 8 (5-15); BUN 20 mg/dL (7-18); BUN/Creat Ratio 22.2 RATIO (10-20); Calcium,Total 9.3 mg/dL (8.5-10.1); Chloride 107 mmol/L (98-107); EST Glomerular Filtration Rate 91 mL/min (>60); Est Glom Filt Rate - Afr Amer 110 mL/min (>60); Glucose 115 mg/dL (74-106); Magnesium 2.5 mg/dL (1.6-2.6); Potassium 4.1 mmol/L (3.5-5.1); Sodium Level 138 mmol/L (136-145)
== END | disposition home or self-care (01) ==
PROVIDERS: PCP Student in an Organized Health Care Education/Training Program; Referring Provider Internal Medicine Cardiovascular Disease; Visit Provider Internal Medicine Cardiovascular Disease
DX: Z95.2 Presence of prosthetic heart valve (principal)
CPT/HCPCS: 36415; 80048; 83735

== ENCOUNTER → 2024-07-29 | Outpatient (CLI) | payer OTHER, SELFPAY ==
--- NOTE | 2024-07-29 13:01 | CR.HP_ITS ---
CR - History & Physical General Arrival date:: 07/29/24 Arrival time:: 13:05 Date of Referral:: 07/17/24 Date of CR Evaluation:: 07/29/24 Referring Physician: Dr. Richmond Primary Diagnosis: heart valve replacement History of Present Cardiac Event Onset Date Heart valve replacement or repair:: Yes (07/17/24 onset) Medications Ambulatory Orders ?Medication ?Instructions ?Recorded acetaminophen 500 mg tablet 500 mg PO Q6H PRN 07/17/24 (Tylenol Extra Strength) aspirin 81 mg tablet,delayed 81 mg PO QDAY 07/17/24 release (Adult Aspirin Regimen) levothyroxine 75 mcg tablet 75 mcg PO QDAY 07/17/24 magnesium oxide 400 mg PO BID 07/17/24 metoprolol tartrate 25 mg tablet 12.5 mg PO BID 07/17/24 Allergies Allergies gluten Allergy (Severe, Verified 07/17/24 15:07) GI upset pork derived (porcine) Allergy (Severe, Verified 07/17/24 15:07) palpitations tree nut (tree nuts) Allergy (Severe, Verified 07/17/24 15:07) palpitations Iodinated Contrast Media Allergy (Intermediate, Verified 03/08/23 12:55) convulsions lactose Adverse Reaction (Severe, Verified 07/17/24 15:07) GI upset prednisone Adverse Reaction (Intermediate, Verified 07/17/24 15:07) psychosis if on for long-term Sleep Disorder Evaluation Hx of Sleep Apnea: No Do you snore loudly (louder than talking or can be heard through closed doors)?: No Do you often feel tired/ fatigued/ sleepy during daytime?: No Has anyone observed you stop breathing during sleep?: No History of Hypertension (for STOP score): No STOP Results: Negative Advanced Directives Advanced Directives Power of Coat Operator Insulator: Yes Living Will: Yes Advance Directives Information Provided: Yes Advance Directives on File: No DNR Order?:: No Past Medical History Covid-19 Screening Physicial Symptoms Other Clinical Concerns Exposure Risk Pertinent Comorbidities Has a serious heart condition:: Yes Past Medical Illness Past Medical History (Updated 07/17/24 @ 15:04 by Alethea Ray RN) Celiac disease K90.0 Bradycardia R00.1 Palpitations R00.2 Gluten intolerance K90.41 Lactose intolerance E73.9 Weight loss, unintentional R63.4 Acute constipation K59.00 Muscle weakness M62.81 Abdominal pain R10.9 Myalgia M79.10 Fatigue R53.83 Aortic stenosis I35.0 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 Judy's thyroiditis E06.3 Hypothyroidism E03.9 Cardiac murmur R01.1 Anxiety F41.9 Past Surgical History Past Surgical History (Updated 07/17/24 @ 15:04 by Alethea Ray RN) S/P AVR (07/04/24) Z95.2 BAV replace with 25# Inspiris History of medial meniscus repair of right knee Z98.890 History of appendectomy Z90.49 Family History Summary Family History (Updated 07/17/24 @ 15:09 by Alethea Ray RN) Father Asthma Heart disease Hypertension Thyroid disorder Diabetes Kidney disease Sister Cancer skin Uncle Throat cancer Mother Heart disease Emphysema lung Social History Smoking History Smoking Status: Former smoker Years Smokin Packs Smoked per Day: 1 (stopped 40 years ago) Alcohol Use Alcohol Usage: No Substance Abuse Hx Substance Use: No Occupation Occupation (List type of work in comments):: 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 Hours worked per day:: 8 Hobbies, Recreation, Social Activities Hobbies: Walking Recreational Activities: I am able to engage in all my recreational activities Social Environment Status Marital Status: Current Living Arrangements Living Environment:: Family Children How many children do you have?: 1 Do any of your children live nearby?: Yes Safety Do you feel safe in your surroundings?: Yes Assistance Do you need any assistance at home?: no Review of Systems Review of Systems Hints Review of Present Symptoms: Reports Shortness of Breath with Exertion, Operative Discomfort, Dizziness/Lightheadedness, Fatigue, Appetite - Normal, Appetite - Special Diet and Sleep - Normal; Denies Shortness of Breath at Rest, PVD, Angina, Wound Healing, Heart Arrhythmia/Irregularities or Sexual Changes Pain Is Patient Pain Free?: No Pain Location: neck and back Pain Level: 3/10 Risk Factor Assessment Chief Complaint Chief Complaint: heart valve replacement Vital Signs Pulse Ox: 96 Blood Pressure: 110/64 Pulse Pulse Rate: 53 Pulse Rhythm: Regular Hypertension Blood Pressure Sitting - Left Arm: 110/64 Stress Stress: Home/Family Obesity Height: 6 ft Weight:: 189 lb Weight in Pounds: 189.0 lbs Body Mass Index (BMI): 25.6 Nutritional Referral for Obesity: No Physical Inactivity Physical Inactivity: Reg Exercise 30 min/day and Physically demanding job Risk Stratification Risk Guidelines: Moderate Risk: Risk Factor for Smoking, Risk Factor for Dyslipidemia, Risk Factor for Diabetes, Risk Factor for Obesity, Risk Factor for Hypertension, Risk Factor for Sedentary Lifestyle and Risk Factor for Depression For Smoking Smoking Risk Guidelines For Dyslipidemia Dyslipidemia Risk Guidelines For Diabetes Mellitus Diabetes Risk Guidelines For Obesity/Overweight Obesity/Overweight Risk Guidelines For Hypertension Hypertension Risk Guidelines For Sedentary Lifestyle Sedentary Lifestyle Risk Guidelines For Depression Depression Risk Guidelines Family History Family History (Updated 07/17/24 @ 15:09 by Alethea Ray RN) Father Asthma Heart disease Hypertension Thyroid disorder Diabetes Kidney disease Sister Cancer Uncle Throat cancer Mother Heart disease Emphysema lung Motivation Motivation to Participate On a scale of 1 to 10, how prepared are you to commit to attending program?: 10 What do you see as barriers to successfully being able to complete the program?: nothing What do you see as the benefits of succesfully completing the program? In other words, what do you hope to get out of participating in the program?: confidence Are there issues you are dealing with that will interfere with completing the program?: no Do you have a spouse or signficant other, family or friends who will help support you to complete the program?: yes
--- NOTE | 2024-07-29 13:11 | CR.ITP_ITS ---
Diagnosis General Information Admitting Diagnosis: heart valve replacement Personal Learning Style:: Audio/Visual Barriers to Learning: No Barriers Stage of change r/t lifestyle modifications:: Contemplation Gave educational material for:: Treating Heart Disease, How The Heart Works, What it means to have Heart Disease, How Coronary Artery Disease is Diagnosed, Heart Procedures, What Heart Medications Do, Risk Factors & Modifications, Living an Active Life, Nutrition, Emotions & Heart Disease, Stress Management & Relaxation and Sleep Disorders & Heart Disease Education/Goals Cardiac Rehabilitation Goals Personal Goals: Initial Assessment: Improve management of stress and emotions, Improve energy level, Participate in home exercise program, Get back to work, or to resume activities faster, Improve muscle strength and endurance and Control risk factors (learn risk factor modification) Scale for measuring improvement of personal goals Diagnosis & Disease Process Outcomes/Goals: Pt IDs own risk factors & lifestyle modifications by Session 10, Verbalizes symptoms of angina & response by session 3., Pt independently manages and Other Additional Outcomes/Goals: Plan/Interventions: Assist Pt to ID & engage in lifestyle modification to reduce CVD risk, Instruct on individual risk factors, Review symptoms of angina & emergency actions, Review secondary diagnosis & identify educational needs. and Other see comment 30 day Reassessments:: Not Met 30 day Reassessments:: Not Met 30 day Reassessments:: Not Met 30 day Reassessments:: Not Met Final Reassessments:: Not Met Safety Referral to Physical Therapy: No Referral to [facility] Case Management: No Fall Risk Assessed:: Yes Assistive Devices:: None Exercise - Initial Assessment Visit Date of Eval: 07/29/24 (initial eval ) Mets: Pre-: >3 METS for 30 minutes by discharge, >5 METS for 30 minutes by discharge, >7 METS for 30 minutes by discharge and Unable to meet goal due to: (see comment below) Physician Prescribed Exercise Modalities: Treadmill, Schwinn Airdyne AD-7, SciFit Stepper, SciFit Pro-II Ergometer and SciFit Lateral [place] Frequency: 3x/week for 12 weeks [36 sessions] Intensity: 60-80% of age predicted maximum heart rate reserve Duration: 30 - 45 minutes Current METSs:: 3 Target Heart Rate:: 95-119 EKG Type: SB Outcomes & Goals Goals:: Verbalizes understanding of THR, RPE & goal METS by session 6, Documents in home exercise log/reports 30 min aerobic 5 day/wk by DC, Demonstrates accurate pulse taking by DC and Other additional outcome/goals: see below Intervention & Plan Exercise Program Goals: Instruct on personal THR & RPE, Instruct on MET level & personal MET goal, Show patient to take own pulse /validate performance until accurate, Instruct on home exercise and Other additional plan/int Physical Activity Home Exercise Physical Activity - Home Exercise: Safe Exercise, Warm-up, Self-monitoring, Cool-Down, Home Exercise > 30 min Daily and Sitting Time <3 hours/daily Outcomes & Goals Outcomes/Goals: Demonstrates correct Warm-up/exercise Cool-Down (S3) if = 2.5 METs, Verbalizes symptoms of exercise intolerance by Session 3 (S3), Demonstrate safe equipment use (S3) & follows exercise prescrition (6) and Other: See below Intervention & Plan Plan/Intervention: Instruct warm-up & cool-down if exercising at > 2 METs, Instruct on symptoms of exercise intolerance & actions to take, Instruct & monitor on saf, Assess intial functional capacity & safety risk and Other See below Nutrition - Initial Assessment Program Goals Nutrition Program Goals Patient has diagnosis of Hyperlipidemia (ICD E78)?: No Visit Date of Eval: 07/29/24 (initial eval ) Cholesterol/Lipids (Other Core Measures) Determine presence & major risk factors that modify LDL goal: Cigarette smoking, Hypertension or hypertensive medication, Low HDL cholesterol <40 mg/dL*, Family history of premature CHD in Male < 55 years: female <65 yearsFa and Age men > 45 years; women >/= 55 years Outcomes/Goals: Pt IDs own risk factors & lifestyle modifications by Session 10, Verbalizes symptoms of angina & response by session 3., Pt independently manages and Other Additional Outcomes/Goals: Intervention/Plan: Advocate for lipid panel cholesterol medication if applicable, Instruct on personal lipid levels & lipid goals/NCEP guidelines, Instruct on cholesterol and Other additional plan/int Referral to dietitian:: No Diabetes (Other Core Measures) Diabetes Type: Not Applicable Weight Mgt (Other Care) Height: 6 ft Weight:: 189 lb BMI: 25.6 Diagnosis Overweight/Obesity BMI> 30% ICD-10 E66: No Diagnosis High BMI/Morbid Obesity BMI> 35% ICD-10 Z68: No Outcomes/Goals: Pt sets, maintains & shows weight loss goal & trend during rehab and Other additional outcomes/goals Intervention/Plan: Instruct on ideal BMI & set weight loss goal w/patient, Assist pt to ID & incorporate diet changes for weight loss by S9, Refer to Structured Weight Loss program as appropriate, Encourage goal of using 250- 300dcal per session for weight loss and Other additional plan/interventions Healthy Eating Habits Will attend diet classes:: Yes Outcomes/Goals:: Consume diet rich in vegs,fruits,whole grain/high fiber,fish,lean meat, Limit sat/trans fats,cholesterol & added salts & sugars and Other additional outcome/goals: Intervention/Plan:: Assess current eating habits and Other Additional plan/interventions Education Gave educational materials for:: Signs & symptoms of hypoglycemia, Signs & symptoms of hyperglycemia, Relate diabetes to coronary artery disease and Healthy eating Core - Initial Assessment Visit Date of Eval: 07/29/24 (initial eval ) Medication Compliance Preventative Medication(s):: Aspirin and Beta nura H/O mental health issues: depression, anxiety, or addiction?: Yes Doesn?t believe in the benefits of treatment?: No Believes medications are unnecessary or harmful?: No Has a concern about medication side effects?: No Expresses concern over the cost of medications?: No Outcomes/Goals: Verbalizes medications,desired effect & common side effects @ DC, Pt self-reports following medication regimen, Keeps card in wallet w/medications listed by DC and Other additional outcome/goals: Interventions/plans: Instruct on medication effects & side effects, Review medication list w/patient every two weeks, Instruct importance of taking meds as ordered & assist problem solving and Other additional Tobacco Use How long ago did you quit using tobacco products?: Greater than or equal to 6 months ago Hypertension Resting Blood Pressure:: 110/64 [place] [employer] Hypertension Guidelines Outcomes/Goals: Able to verbalize/achieve optimal blood pressure <130/80, Incorporates diet changes & exercise for blood pressure control by DC and Other additional outcomes/goals Interventions/plan: Instruct on optimal blood pressure, hypertension & medications, Instruct on effects of sodium, alcohol, stress, exercise &hypertension and Other additional plan/interventions Tobacco Cessation Referral Smoking Cessation Referral:: No Individual Education/Counseling:: No Education Schedule Given:: Yes Psychosocial - Initial Assess VIsit Date of Eval: 07/29/24 (initial eval ) History of previous Mental disease:: Yes History of Emotional Disorders: Anxious Target Goals Target Goals Psychosocial Test Tool Used:: Ferrans Power QOL Cardiac and PHQ-9 Questionnaire phq-9 Severity Referral to Behavioral Health PS - Interventions: Yes: Attend Stress Management Classes Outcomes/Goals: See list Psychosocial Outcomes/Goals:: ID's personal stressors & 2 strategies to manage stress by discharge and Other Additional outcome/goals: Intervention/Plan: See List Interventions/Plan:: Assess stressors,coping strategies & signs of derpression on admission, Instruct/assist pt to develop coping & personal stress Mgt strategies, Refer to Behavioral Health if appropriate, Refer to Physician if appropriate, Instruct patient to recognize signs & symptoms of depression, Instruct patient to recog and Other additional plan/intervention Patient Health Questionnaire PHQ-9 Screening Initial Assessment: 1. Little interest or pleasure in doing things: Not at all 2. Feeling down, depressed, or hopeless: Several days 3. Trouble falling or staying asleep, or sleeping too much: Not at all 4. Feeling tired or having little energy: Not at all 5. Poor appetite or overeating: Several days 6. Feeling bad about yourself -- or that you are a failure or have let yourself or your family down: Not at all 7. Trouble concentrating on things, such as reading the newspaper or watching television: Not at all 8. Moving or speaking so slowly that other people could have noticed. Or the opposite - being so fidgety or restless that you have been moving around a lot more than usual: Not at all 9. Thoughts that you would be better off , or of hurting yourself in some way: Not at all How difficult have these problems made it for you to do your work, take care of things at home, or get along with other people?: Somewhat difficult Total Score: 2 MAUDE-Q SV Test Statements CAD is a disease of the arteries in the heart: False Examples of risk factors for heart disease: True Angina is chest pain or discomfort: True The benefits of resistance training include: True Eating more meat and dairy products: False Anti-platelet medications such as aspirin are important: I Don't Know The only effective way to manage stress: False An exercise warm-up slowly increases heart rate: I Don't Know Prepared, processed foods usually have high sodium: True Depression is common after a heart attack: I Don't Know The statin medications lower cholesterol: I Don't Know To control blood pressure, lower the amount of sodium: True If someone gets chest discomfort during walking: False Transfats are partially hydrogenated vegetable oils: True Sleep apnea that is not treated increases the risk: False To control cholesterol, one should become a vegetarian: False Someone knows if he/she is exercising at the right level: True Diabetes cannot be prevented with exercise & health eating: False Stress is a large risk for heart attack: True A diet that can help lower blood pressure is rich in: True Total Score Total Correct Responses: 16 Self-Efficacy 6-Item Scale Initial Assessment: We would like to know how confident you are in doing certain activities. Please select your confidence level for: Fatigue Select Number: 4 Physical Discomfort or Pain Select Number: 7 Emotional Distress Select Number: 8 Other Symptoms or Health Problems Select Number: 8 Different Tasks and Activities Select Number: 8 Medication Select Number: 9 Total Score:: 7 Nutrition Survey Nutrition Survey Instructions Scoring Instructions Nutrition Survey Initial: Have you lost >10 lbs over the past 2 months without trying?: No Are you following a special diet at home for diabetes, low fat, or low salt?: No Are you interested in meeting with a dietitian for help understanding your diet?: No Do you eat less than 3 meals a day?: No Do you eat fatty meats (dover, sausage, ribs, etc), fried foods, desserts, large amounts of salad dressings, margarine, butter, or cheese most days?: No Do you have food allergies? [Enter types in comment field]: Yes Do you eat in restaurants more than 3 times a week?: No Do you season food with salt, seasoning salt, or garlic salt?: Yes Do you used canned, boxed, frozen meals, or soups, seasoning packets?: No Total Score:: 2 Exercise - 30-day Assessment Physician Prescribed Exercise Modalities: Treadmill, Schwinn Airdyne AD-7, SciFit Stepper, SciFit Pro-II Ergometer and SciFit Lateral [employer] Exercise - 60-day Assessment Physician Prescribed Exercise Modalities: Treadmill, Schwinn Airdyne AD-7, SciFit Stepper, SciFit Pro-II Ergometer and SciFit Lateral [place] Exercise - 90-day Assessment Physician Prescribed Exercise Modalities: Treadmill, Schwinn Airdyne AD-7, SciFit Stepper, SciFit Pro-II Ergometer and SciFit Lateral [place] Exercise - Final/Discharge Physician Prescribed Exercise Modalities: Treadmill, Schwinn Airdyne AD-7, SciFit Stepper, SciFit Pro-II Ergometer and SciFit Lateral [place] Frequency: 3x/week for 12 weeks [36 sessions] Intensity: 60-80% of age predicted maximum heart rate reserve Current METSs:: 3 Target Heart Rate:: 95-119 Nutrition - 30-Day Assessment Weight Mgt (Other Care) Height: 6 ft Weight:: 189 lb BMI: 25.6 Nutrition - 60-Day Assessment Weight Mgt (Other Care) Height: 6 ft Weight:: 189 lb BMI: 25.6 Core - Final Assessment Hypertension Resting Blood Pressure:: 110/64 [place] [employer] Hypertension Guidelines Core - 60-Day Assessment Hypertension Resting Blood Pressure:: 110/64 [place] [employer] Hypertension Guidelines Psychosocial - 30-Day Assess Target Goals Target Goals Referral to Behavioral Health PS - Interventions: Yes: Attend Stress Management Classes Psychosocial - 60-Day Assess Target Goals Target Goals Referral to Behavioral Health PS - Interventions: Yes: Attend Stress Management Classes Psychosocial - 90-Day Assess Target Goals Target Goals Referral to Behavioral Health PS - Interventions: Yes: Attend Stress Management Classes Psychosocial - Final Assessmen Target Goals Target Goals Referral to Behavioral Health PS - Interventions: Yes: Attend Stress Management Classes Nutrition - 90-Day Assessment Weight Mgt (Other Care) Height: 6 ft Weight:: 189 lb BMI: 25.6 Nutrition - Final Assessment Program Goals Patient has diagnosis of Hyperlipidemia (ICD E78)?: No Weight Mgt (Other Care) Height: 6 ft Weight:: 189 lb BMI: 25.6
[2024-07-29 13:42] VITALS: BMI 25.6
[2024-07-29 13:52] VITALS: BP 110/64; PULSE 53; O2SAT 96
[2024-07-29 14:25] VITALS: BP 110/64
[2024-07-29 14:31] VITALS: BP 110/64; BMI 25.6
== END | disposition home or self-care (01) ==
LOC: CR 13:00
PROVIDERS: PCP Student in an Organized Health Care Education/Training Program; Referring Provider Internal Medicine Cardiovascular Disease; Visit Provider Internal Medicine Cardiovascular Disease
DX: I71.9 Aortic aneurysm of unspecified site, without rupture (principal)

== ENCOUNTER 2024-08-05 08:00 | Outpatient (RCR) | payer OTHER, SELFPAY ==
[2024-07-29 14:31] VITALS: BMI 25.6
== END 2024-08-05 23:59 ==
LOC: CR 08:00
PROVIDERS: PCP Student in an Organized Health Care Education/Training Program; Referring Provider Internal Medicine Cardiovascular Disease; Visit Provider Internal Medicine Cardiovascular Disease
DX: I71.9 Aortic aneurysm of unspecified site, without rupture (principal)
CPT/HCPCS: 93798

== ENCOUNTER 2024-09-04 08:00 | Outpatient (RCR) | payer OTHER, SELFPAY ==
[2024-07-29 14:31] VITALS: BMI 25.6
--- NOTE | 2024-08-28 07:14 | PCM.CR.ITP ---
Exercise - Initial Assessment Visit Session #:: 12 Physician Prescribed Exercise Modalities: Treadmill, Schwinn Airdyne AD-7 and SciFit Stepper Nutrition - Initial Assessment Weight Mgt (Other Care) Height: 6 ft Weight:: 196 lb BMI: 26.6 Psychosocial - Initial Assess Target Goals Target Goals Referral to Behavioral Health PS - Interventions: Yes: Attend Stress Management Classes Patient Health Questionnaire PHQ-9 Screening 30-Day Re-eval Assessment: 1. Little interest or pleasure in doing things: Not at all 2. Feeling down, depressed, or hopeless: Several days 3. Trouble falling or staying asleep, or sleeping too much: Not at all 4. Feeling tired or having little energy: Several days 5. Poor appetite or overeating: Not at all 6. Feeling bad about yourself -- or that you are a failure or have let yourself or your family down: Not at all 7. Trouble concentrating on things, such as reading the newspaper or watching television: Not at all 8. Moving or speaking so slowly that other people could have noticed. Or the opposite - being so fidgety or restless that you have been moving around a lot more than usual: Not at all 9. Thoughts that you would be better off , or of hurting yourself in some way: Not at all How difficult have these problems made it for you to do your work, take care of things at home, or get along with other people?: Somewhat difficult Total Score: 2 Self-Efficacy 6-Item Scale 30-Day Re-eval Assessment: We would like to know how confident you are in doing certain activities. Please select your confidence level for: Fatigue Select Number: 4 Physical Discomfort or Pain Select Number: 7 Emotional Distress Select Number: 8 Other Symptoms or Health Problems Select Number: 8 Different Tasks and Activities Select Number: 8 Medication Select Number: 9 Total Score:: 7 Nutrition Survey Nutrition Survey Instructions Scoring Instructions Exercise - 30-day Assessment Visit Date of Eval: 08/28/24 Session #:: 12 Physician Prescribed Exercise Modalities: Treadmill, Schwinn Airdyne AD-7 and SciFit Stepper Frequency: 3x/week for 12 weeks [36 sessions] Intensity: 60-80% of age predicted maximum heart rate reserve Duration: 30 - 45 minutes Current METSs:: 4.7 Target Heart Rate:: 95-119 Current RPE:: 12-13 Maximum Excercise HR:: 94 Resting Blood Pressure: 100/64 Maximum Exercise Blood Pressure: 122/72 EKG Type: SB to NSR with freq PVC, rare couplet, occ qaudrigeminy, occ bigeminy Outcomes & Goals Goals:: Verbalizes understanding of THR, RPE & goal METS by session 6, Documents in home exercise log/reports 30 min aerobic 5 day/wk by DC, Demonstrates accurate pulse taking by DC and Other additional outcome/goals: see below Intervention & Plan Exercise Program Goals: Instruct on personal THR & RPE, Instruct on MET level & personal MET goal, Show patient to take own pulse /validate performance until accurate, Instruct on home exercise and Other additional plan/int 30-day Reassessments 30 day Reassessments:: Progressing Reassessment Notes & Comments:: pt has been able to increase exercise intensity. RPE explained. Pt demonstrates understanding Physical Activity Home Exercise Physical Activity - Home Exercise: Safe Exercise, Warm-up, Self-monitoring, Cool-Down, Home Exercise > 30 min Daily and Sitting Time <3 hours/daily Outcomes & Goals Outcomes/Goals: Demonstrates correct Warm-up/exercise Cool-Down (S3) if = 2.5 METs, Verbalizes symptoms of exercise intolerance by Session 3 (S3), Demonstrate safe equipment use (S3) & follows exercise prescrition (6) and Other: See below Intervention & Plan Plan/Intervention: Instruct warm-up & cool-down if exercising at > 2 METs, Instruct on symptoms of exercise intolerance & actions to take, Instruct & monitor on saf, Assess intial functional capacity & safety risk and Other See below 30-day Reassessments 30 day Reassessments:: Progressing Reassessment Notes & Comments:: Slow warm up encouraged and demonstrated. Pt is able to return demonstration. Exercise - 60-day Assessment Physician Prescribed Exercise Modalities: Treadmill, Schwinn Airdyne AD-7 and SciFit Stepper Exercise - 90-day Assessment Physician Prescribed Exercise Modalities: Treadmill, Schwinn Airdyne AD-7 and SciFit Stepper Exercise - Final/Discharge Physician Prescribed Exercise Modalities: Treadmill, Schwinn Airdyne AD-7 and SciFit Stepper Nutrition - 30-Day Assessment Program Goals Nutrition Program Goals Patient has diagnosis of Hyperlipidemia (ICD E78)?: No Visit Date of Eval: 08/28/24 Session #:: 12 Cholesterol/Lipids (Other Core Measures) Determine presence & major risk factors that modify LDL goal: Hypertension or hypertensive medication, Low HDL cholesterol <40 mg/dL*, Family history of premature CHD in Male < 55 years: female <65 yearsFa and Age men > 45 years; women >/= 55 years Outcomes/Goals: Pt IDs own risk factors & lifestyle modifications by Session 10, Verbalizes symptoms of angina & response by session 3., Pt independently manages and Other Additional Outcomes/Goals: Intervention/Plan: Advocate for lipid panel cholesterol medication if applicable, Instruct on personal lipid levels & lipid goals/NCEP guidelines, Instruct on cholesterol and Other additional plan/int Referral to dietitian:: No 30-day Reassessments:: Progressing Reassessment Notes & Comments:: Risk factors reviewed. pt demonstrates understanding Diabetes (Other Core Measures) Diabetes Type: Not Applicable Weight Mgt (Other Care) Height: 6 ft Weight:: 196 lb BMI: 26.6 Diagnosis Overweight/Obesity BMI> 30% ICD-10 E66: No Diagnosis High BMI/Morbid Obesity BMI> 35% ICD-10 Z68: No Outcomes/Goals: Pt sets, maintains & shows weight loss goal & trend during rehab and Other additional outcomes/goals Intervention/Plan: Instruct on ideal BMI & set weight loss goal w/patient, Assist pt to ID & incorporate diet changes for weight loss by S9, Refer to Structured Weight Loss program as appropriate, Encourage goal of using 250-300dcal per session for weight loss and Other additional plan/interventions 30 day Reassessments:: Met Reassessment Notes & Comments:: pt is at a healthy weight Healthy Eating Habits Will attend diet classes:: Yes Outcomes/Goals:: Consume diet rich in vegs,fruits,whole grain/high fiber,fish,lean meat, Limit sat/trans fats,cholesterol & added salts & sugars and Other additional outcome/goals: Intervention/Plan:: Assess current eating habits and Other Additional plan/interventions 30-day Reassessments:: Progressing Reassessment Notes & Comments:: Low sodium diet encouraged Education Gave educational materials for:: Signs & symptoms of hypoglycemia, Signs & symptoms of hyperglycemia, Relate diabetes to coronary artery disease and Healthy eating Nutrition - 60-Day Assessment Weight Mgt (Other Care) Height: 6 ft Weight:: 196 lb BMI: 26.6 Core - 30-Day Assessment Visit Date of Eval: 08/28/24 Session #:: 12 Medication Compliance Preventative Medication(s):: Aspirin and Beta nura H/O mental health issues: depression, anxiety, or addiction?: No Doesn?t believe in the benefits of treatment?: No Believes medications are unnecessary or harmful?: No Has a concern about medication side effects?: No Expresses concern over the cost of medications?: No Outcomes/Goals: Verbalizes medications,desired effect & common side effects @ DC, Pt self-reports following medication regimen, Keeps card in wallet w/medications listed by DC and Other additional outcome/goals: Interventions/plans: Instruct on medication effects & side effects, Review medication list w/patient every two weeks, Instruct importance of taking meds as ordered & assist problem solving and Other additional 30-day Reassessments:: Progressing Reassessment Notes & Comments:: 08/14/24 metoprolol 12.5 mg daily added Tobacco Use Tobacco Use: Non-smoker Hypertension Resting Blood Pressure:: 100/64 [place] [employer] Hypertension Guidelines Peak Exercise Blood Pressure:: 122/72 Outcomes/Goals: Able to verbalize/achieve optimal blood pressure <130/80, Incorporates diet changes & exercise for blood pressure control by DC and Other additional outcomes/goals Interventions/plan: Instruct on optimal blood pressure, hypertension & medications, Instruct on effects of sodium, alcohol, stress, exercise &hypertension and Other additional plan/interventions 30 day Reassessments:: Met Reassessment Notes & Comments:: bp's are within AHA guidelines Tobacco Cessation Referral Smoking Cessation Referral:: No Individual Education/Counseling:: No Education Schedule Given:: Yes Psychosocial - 30-Day Assess VIsit Date of Eval: 08/28/24 Session #:: 12 History of previous Mental disease:: Yes History of Emotional Disorders: Anxious Target Goals Target Goals Psychosocial Test Tool Used:: Ferrans Power QOL Cardiac and PHQ-9 Questionnaire phq-9 Severity Referral to Behavioral Health PS - Interventions: Yes: Attend Stress Management Classes Outcomes/Goals: See list Psychosocial Outcomes/Goals:: ID's personal stressors & 2 strategies to manage stress by discharge and Other Additional outcome/goals: Intervention/Plan: See List Interventions/Plan:: Assess stressors,coping strategies & signs of derpression on admission, Instruct/assist pt to develop coping & personal stress Mgt strategies, Refer to Behavioral Health if appropriate, Refer to Physician if appropriate, Instruct patient to recognize signs & symptoms of depression, Instruct patient to recog and Other additional plan/intervention 30-day Reassessments: 30 day Reassessments:: Met Reassessment Notes & Comments:: pt states he is doing fine with his anxiety Psychosocial - 60-Day Assess Target Goals Target Goals Referral to Behavioral Health PS - Interventions: Yes: Attend Stress Management Classes Outcomes/Goals: See list Psychosocial Outcomes/Goals:: ID's personal stressors & 2 strategies to manage stress by discharge and Other Additional outcome/goals: Psychosocial - 90-Day Assess Target Goals Target Goals Referral to Behavioral Health PS - Interventions: Yes: Attend Stress Management Classes Psychosocial - Final Assessmen Target Goals Target Goals Referral to Behavioral Health PS - Interventions: Yes: Attend Stress Management Classes Nutrition - 90-Day Assessment Weight Mgt (Other Care) Height: 6 ft Weight:: 196 lb BMI: 26.6 Nutrition - Final Assessment Weight Mgt (Other Care) Height: 6 ft Weight:: 196 lb BMI: 26.6
[2024-08-28 07:26] VITALS: BP 100/64; BMI 26.6
== END 2024-09-05 23:59 ==
LOC: CR 08:00
PROVIDERS: PCP Student in an Organized Health Care Education/Training Program; Referring Provider Internal Medicine Cardiovascular Disease; Visit Provider Internal Medicine Cardiovascular Disease
DX: I71.9 Aortic aneurysm of unspecified site, without rupture (principal)
CPT/HCPCS: 93798

== ENCOUNTER 2024-10-02 08:00 | Outpatient (RCR) | payer OTHER, SELFPAY ==
[2024-08-28 07:26] VITALS: BMI 26.6
[2024-09-06 00:16] VITALS: BP 100/64
--- NOTE | 2024-09-26 07:36 | PCM.CR.ITP ---
Exercise - Initial Assessment Physician Prescribed Exercise Modalities: Chari De Leon-7 and SciFit Stepper Nutrition - Initial Assessment Weight Mgt (Other Care) Height: 6 ft Weight:: 198 lb BMI: 26.8 Core - Initial Assessment Hypertension Resting Blood Pressure:: 90/62 [place] [employer] Hypertension Guidelines Psychosocial - Initial Assess Target Goals Target Goals Referral to Behavioral Health PS - Interventions: Yes: Attend Stress Management Classes Patient Health Questionnaire PHQ-9 Screening 60-Day Re-eval Assessment: 1. Little interest or pleasure in doing things: Not at all 2. Feeling down, depressed, or hopeless: Several days 3. Trouble falling or staying asleep, or sleeping too much: Not at all 4. Feeling tired or having little energy: Several days 5. Poor appetite or overeating: Not at all 6. Feeling bad about yourself -- or that you are a failure or have let yourself or your family down: Not at all 7. Trouble concentrating on things, such as reading the newspaper or watching television: Not at all 8. Moving or speaking so slowly that other people could have noticed. Or the opposite - being so fidgety or restless that you have been moving around a lot more than usual: Not at all 9. Thoughts that you would be better off , or of hurting yourself in some way: Not at all How difficult have these problems made it for you to do your work, take care of things at home, or get along with other people?: Somewhat difficult Total Score: 2 Self-Efficacy 6-Item Scale 60-Day Re-eval Assessment: We would like to know how confident you are in doing certain activities. Please select your confidence level for: Fatigue Select Number: 4 Physical Discomfort or Pain Select Number: 7 Emotional Distress Select Number: 8 Other Symptoms or Health Problems Select Number: 8 Different Tasks and Activities Select Number: 8 Medication Select Number: 9 Total Score:: 7 Nutrition Survey Nutrition Survey Instructions Scoring Instructions Exercise - 30-day Assessment Physician Prescribed Exercise Modalities: Chari De Leon-7 and SciFit Stepper Exercise - 60-day Assessment Physician Prescribed Exercise Modalities: Chari De Leon AD-7 and SciFit Stepper Exercise - 90-day Assessment Visit Date of Eval: 09/26/24 Session #:: 25 Physician Prescribed Exercise Modalities: Emy De Leonn Airdyne AD-7 and SciFit Stepper Frequency: 3x/week for 12 weeks [36 sessions] Intensity: 60-80% of age predicted maximum heart rate reserve Duration: 30 - 45 minutes Current METSs:: 6.6 Target Heart Rate:: 95-119 Current RPE:: 13 Maximum Excercise HR:: 122 Resting Blood Pressure: 100/60 Maximum Exercise Blood Pressure: 142/80 EKG Type: SB to ST w/occas to freq PVC's, occ quadrigeminy/trigeminy/bigeminy noted. Outcomes & Goals Goals:: Verbalizes understanding of THR, RPE & goal METS by session 6, Documents in home exercise log/reports 30 min aerobic 5 day/wk by DC, Demonstrates accurate pulse taking by DC and Other additional outcome/goals: see below Intervention & Plan Exercise Program Goals: Instruct on personal THR & RPE, Instruct on MET level & personal MET goal, Show patient to take own pulse /validate performance until accurate, Instruct on home exercise and Other additional plan/int 30-day Reassessments 30 day Reassessments:: Progressing Reassessment Notes & Comments:: Pt understands his THR and exercise goals. Pt has been able to increase his exercise workloads. Physical Activity Home Exercise Physical Activity - Home Exercise: Safe Exercise, Warm-up, Self-monitoring, Cool-Down, Home Exercise > 30 min Daily and Sitting Time <3 hours/daily Outcomes & Goals Outcomes/Goals: Demonstrates correct Warm-up/exercise Cool-Down (S3) if = 2.5 METs, Verbalizes symptoms of exercise intolerance by Session 3 (S3), Demonstrate safe equipment use (S3) & follows exercise prescrition (6) and Other: See below Intervention & Plan Plan/Intervention: Instruct warm-up & cool-down if exercising at > 2 METs, Instruct on symptoms of exercise intolerance & actions to take, Instruct & monitor on saf, Assess intial functional capacity & safety risk and Other See below 30-day Reassessments 30 day Reassessments:: Progressing Reassessment Notes & Comments:: Proper cool down explained and demonstrated. Pt is able to return demonstration. Exercise - Final/Discharge Physician Prescribed Exercise Modalities: Rower, Schwinn Airdyne AD-7 and SciFit Stepper Nutrition - 30-Day Assessment Weight Mgt (Other Care) Height: 6 ft Weight:: 198 lb BMI: 26.8 Nutrition - 60-Day Assessment Program Goals Nutrition Program Goals Patient has diagnosis of Hyperlipidemia (ICD E78)?: No Visit Date of Eval: 09/26/24 Session #:: 25 Cholesterol/Lipids (Other Core Measures) Determine presence & major risk factors that modify LDL goal: Cigarette smoking, Hypertension or hypertensive medication, Low HDL cholesterol <40 mg/dL*, Family history of premature CHD in Male < 55 years: female <65 yearsFa and Age men > 45 years; women >/= 55 years Outcomes/Goals: Pt IDs own risk factors & lifestyle modifications by Session 10, Verbalizes symptoms of angina & response by session 3., Pt independently manages and Other Additional Outcomes/Goals: Intervention/Plan: Advocate for lipid panel cholesterol medication if applicable, Instruct on personal lipid levels & lipid goals/NCEP guidelines, Instruct on cholesterol and Other additional plan/int 30-day Reassessments:: Progressing Reassessment Notes & Comments:: Pt has been able to modify his lifestyle to reduce his risk factors. Diabetes (Other Core Measures) Diabetes Type: Not Applicable Weight Mgt (Other Care) Height: 6 ft Weight:: 198 lb BMI: 26.8 Diagnosis Overweight/Obesity BMI> 30% ICD-10 E66: No Diagnosis High BMI/Morbid Obesity BMI> 35% ICD-10 Z68: No Outcomes/Goals: Pt sets, maintains & shows weight loss goal & trend during rehab and Other additional outcomes/goals Intervention/Plan: Instruct on ideal BMI & set weight loss goal w/patient, Assist pt to ID & incorporate diet changes for weight loss by S9, Refer to Structured Weight Loss program as appropriate, Encourage goal of using 250-300dcal per session for weight loss and Other additional plan/interventions 30 day Reassessments:: Met Reassessment Notes & Comments:: Pt is at a healthy weight Healthy Eating Habits Will attend diet classes:: Yes Outcomes/Goals:: Consume diet rich in vegs,fruits,whole grain/high fiber,fish,lean meat, Limit sat/trans fats,cholesterol & added salts & sugars and Other additional outcome/goals: Intervention/Plan:: Assess current eating habits and Other Additional plan/interventions 30-day Reassessments:: Met Reassessment Notes & Comments:: Pt has attended nutrition class and understands the importance of a heart healthy diet. Education Gave educational materials for:: Signs & symptoms of hypoglycemia, Signs & symptoms of hyperglycemia, Relate diabetes to coronary artery disease and Healthy eating Core - Final Assessment Hypertension Resting Blood Pressure:: 90/62 [place] [employer] Hypertension Guidelines Core - 60-Day Assessment Visit Date of Eval: 09/26/24 Session #:: 25 Medication Compliance Preventative Medication(s):: Aspirin and Beta nura H/O mental health issues: depression, anxiety, or addiction?: Yes Doesn?t believe in the benefits of treatment?: No Believes medications are unnecessary or harmful?: No Has a concern about medication side effects?: No Expresses concern over the cost of medications?: No Interventions/plans: Instruct on medication effects & side effects, Review medication list w/patient every two weeks, Instruct importance of taking meds as ordered & assist problem solving and Other additional 30-day Reassessments:: Met Reassessment Notes & Comments:: Pt is taking his meds as prescribed by his physician. Pt understand the importance of taking his meds. Tobacco Use Tobacco Use: Non-smoker Hypertension Hypertension Diagnosis:: Hypertension ICD-10 I10 Resting Blood Pressure:: 104/68 Resting Blood Pressure:: 90/62 [place] [employer] Hypertension Guidelines Peak Exercise Blood Pressure:: 132/78 Outcomes/Goals: Able to verbalize/achieve optimal blood pressure <130/80, Incorporates diet changes & exercise for blood pressure control by DC and Other additional outcomes/goals Interventions/plan: Instruct on optimal blood pressure, hypertension & medications, Instruct on effects of sodium, alcohol, stress, exercise &hypertension and Other additional plan/interventions 30 day Reassessments:: Met Reassessment Notes & Comments:: Pt's BP's are within AHA's normal limits. Tobacco Cessation Referral Smoking Cessation Referral:: No Individual Education/Counseling:: No Education Schedule Given:: Yes Psychosocial - 30-Day Assess Target Goals Target Goals Referral to Behavioral Health PS - Interventions: Yes: Attend Stress Management Classes Outcomes/Goals: See list Psychosocial Outcomes/Goals:: ID's personal stressors & 2 strategies to manage stress by discharge and Other Additional outcome/goals: Psychosocial - 60-Day Assess VIsit Date of Eval: 09/26/24 Session #:: 25 History of previous Mental disease:: Yes History of Emotional Disorders: Anxious Target Goals Target Goals Psychosocial Test Tool Used:: [employer] QOL Cardiac and PHQ-9 Questionnaire phq-9 Severity Referral to Behavioral Health PS - Interventions: Yes: Attend Stress Management Classes Outcomes/Goals: See list Psychosocial Outcomes/Goals:: ID's personal stressors & 2 strategies to manage stress by discharge and Other Additional outcome/goals: Intervention/Plan: See List Interventions/Plan:: Assess stressors,coping strategies & signs of derpression on admission, Instruct/assist pt to develop coping & personal stress Mgt strategies, Refer to Behavioral Health if appropriate, Refer to Physician if appropriate, Instruct patient to recognize signs & symptoms of depression, Instruct patient to recog and Other additional plan/intervention 30-day Reassessments: 30 day Reassessments:: Met Reassessment Notes & Comments:: Pt states he is fine with his anxiety Psychosocial - 90-Day Assess Target Goals Target Goals Referral to Behavioral Health PS - Interventions: Yes: Attend Stress Management Classes Psychosocial - Final Assessmen Target Goals Target Goals Referral to Behavioral Health PS - Interventions: Yes: Attend Stress Management Classes Nutrition - 90-Day Assessment Weight Mgt (Other Care) Height: 6 ft Weight:: 198 lb BMI: 26.8 Nutrition - Final Assessment Weight Mgt (Other Care) Height: 6 ft Weight:: 198 lb BMI: 26.8
[2024-09-26 07:49] VITALS: BP 100/60; BMI 26.8
[2024-09-26 07:53] VITALS: BP 104/68; BP 90/62
== END 2024-10-05 23:59 ==
LOC: CR 08:00
PROVIDERS: PCP Student in an Organized Health Care Education/Training Program; Referring Provider Internal Medicine Cardiovascular Disease; Visit Provider Internal Medicine Cardiovascular Disease
DX: I71.9 Aortic aneurysm of unspecified site, without rupture (principal); Z95.2 Presence of prosthetic heart valve
CPT/HCPCS: 93798

== ENCOUNTER 2024-10-23 08:00 | Outpatient (RCR) | payer OTHER, SELFPAY ==
[2024-09-26 07:49] VITALS: BMI 26.8
[2024-10-06 00:15] VITALS: BP 100/60; BP 100/64; BP 104/68; BP 90/62
== END 2024-11-05 23:59 ==
LOC: CR 08:00
PROVIDERS: PCP Student in an Organized Health Care Education/Training Program; Referring Provider Internal Medicine Cardiovascular Disease; Visit Provider Internal Medicine Cardiovascular Disease
DX: I71.9 Aortic aneurysm of unspecified site, without rupture (principal)
CPT/HCPCS: 93798

== ENCOUNTER → 2025-07-24 | Outpatient (CLI) | payer OTHER, SELFPAY ==
[2024-09-26 07:49] VITALS: BMI 26.8
--- NOTE | 2025-07-24 07:00 | ECHOD_ITS ---
Reason For Study Reason For Study: VALVE REPLACEMENT EVAL Procedure This was a 2D Doppler, Color Flow transthoracic echocardiogram. Exam performed in department. Left Ventricle Normal LV size. The left ventricular ejection fraction is 55 %. No regional wall motion abnormalities noted. Right Ventricle Normal right ventricle. Normal systolic function. Atria Normal left atrium. Normal right atrium. Mitral Valve Normal mitral valve. Tricuspid Valve Normal tricuspid valve. Mild tricuspid valve insufficiency. Pulmonary artery systolic pressure is 22 mmHg. Aortic Valve Trisinus/trileaflet aortic valve. Peak aortic valve gradient 29 mmHg. Mean aortic valve gradient 16 mmHg. Bioprosthetic aortic valve. Pulmonic Valve Normal pulmonic valve. Great Vessels Mild to moderately dilated aortic root. The pulmonary artery is normal size. Inferior vena cava collapse with respiration. Pericardium/Pleural No pericardial effusion. MMode/2D Measurements & Calculations LVIDd: 5.3 cm IVSd: 0.91 cm Ao root diam: 3.8 cm LVIDs: 3.3 cm LVPWd: 0.97 cm FS: 37.2 % asc Aorta Diam: 4.2 cm LAV(MOD-bp): 65.3 ml LVAd ap4: 30.4 cm2 LAV(MOD-bp) Indexed: 31.3 ml/m2 LVLd ap4: 8.8 cm LAV(MOD-sp2): 68.5 ml EDV(MOD-sp4): 88.2 ml LAV(MOD-sp4): 57.4 ml EDV(sp4-el): 88.8 ml LVAs ap4: 18.6 cm2 LVLs ap4: 7.7 cm ESV(MOD-sp4): 39.2 ml ESV(sp4-el): 38.3 ml EF(MOD-sp4): 55.6 % EF(sp4-el): 56.8 % LVAd ap2: 28.9 cm2 SV(MOD-sp4): 49.0 ml SV(MOD-sp2): 53.7 ml LVLd ap2: 8.3 cm SI(MOD-sp4): 23.5 ml/m2 SI(MOD-sp2): 25.7 ml/m2 EDV(MOD-sp2): 87.6 ml EDV(sp2-el): 85.7 ml LVAs ap2: 16.2 cm2 LVLs ap2: 6.6 cm ESV(MOD-sp2): 33.9 ml ESV(sp2-el): 33.6 ml EF(MOD-sp2): 61.3 % SV(sp4-el): 50.4 ml LA dimension(2D): 4.1 cm LA A4 area: 20.1 cm2 RA A4 area: 15.5 cm2 TAPSE: 1.8 cm Time Measurements MV dec time: 0.26 sec Doppler Measurements & Calculations MV E max nicko: 63.1 cm/sec Lat Peak E' Nicko: 13.2 cm/sec Med Peak E' Nicko: 8.7 cm/sec MV A max nicko: 56.5 cm/sec E/E' lat: 4.8 E/E' med: 7.2 MV E/A: 1.1 MV V2 max: 81.5 cm/sec MV P1/2t max nicko: 78.1 cm/sec Ao V2 max: 270.1 cm/sec MV max P.7 mmHg MV P1/2t: 80.4 msec Ao max P.3 mmHg MV V2 mean: 39.0 cm/sec Ao V2 mean: 191.5 cm/sec MV mean P.74 mmHg MV dec slope: 284.3 cm/sec2 Ao mean P.1 mmHg MV V2 VTI: 28.3 cm MVA(P1/2t): 2.7 cm2 Ao V2 VTI: 69.8 cm AV (velocity ratio): 0.43 LV V1 max: 105.8 cm/sec PA V2 max: 68.9 cm/sec TR max nicko: 222.0 cm/sec LV V1 max P.5 mmHg PA V2 mean: 53.0 cm/sec TR max P.7 mmHg LV V1 mean P.0 mmHg LV V1 mean: 84.8 cm/sec LV V1 VTI: 30.2 cm ECHO/Echo Complete Interpretation Summary The left ventricular ejection fraction is 55 %. Normal LV size. Bioprosthetic aortic valve. Mean aortic valve gradient 16 mmHg. Mild to moderately dilated aortic root. Ordering Physician: Crystal Justice Referring Physician: Alverto Ceja Performed By: Fernanda Nicole RDCS, RVT
--- OUTSIDE RECORDS SUMMARY | 2025-07-24 07:03 | XMS RPT_ITS | CCD ---
Author Organization [facility] Care Team Providers Care Client Director Name Role Phone Alverto Ceja DO Primary Care Provider ALVERTO CEJA Primary Care Unavailable ALVERTO CEJA Referring Unavailable BETTY JOHNSON Attending Unavailable ALVERTO CEJA Primary Care Unavailable Alverto Ceja DO Primary Care Provider Dr. Alverto Ceja Primary Care Provider Dr. Alverto Ceja Referring Provider Deanne PRODUCTION SKI REPAIRER, PRODUCTION SKI REPAIRER-C Taylor Marinelli Attending Provider Dr. Cam Gabriel Attending Provider Dr. Alverto Ceja Primary Care Provider Dr. Alverto Ceja Referring Provider Dr. Cam Gabriel Attending Provider Alverto Ceja DO Primary Care Provider Thomas Montalvo MD Unavailable Provider Nilay CONNER Unavailable Unavailable Provider Nilay CONNER Unavailable Unavailable Fito CARDIAC CATHETERIZATION TECHNICIAN.Dari BARRAGAN Unavailable Rosa Henson APRN.CNP Unavailable Cam Gabriel Attending Unavailable Alverto Ceja Referring Unavailable Basilio, Dmitry Attending Unavailable Alverto Ceja Primary Care Unavailable Alverto Ceja Referring Unavailable Basilio, Dmitry Attending Unavailable Alverto Ceja Primary Care Unavailable Basilio, Errol Referring Unavailable Basilio, Dmitry Attending Unavailable Alverto Ceja Primary Care Unavailable Basilio, Dmitry Referring Unavailable Ceja, Alverto Primary Care Unavailable Basilio, Dmitry Referring Unavailable Basilio, Dmitry Attending Unavailable Basilio, Dmitry Attending Unavailable Basilio, Dmitry Referring Unavailable Ceja, Alverto Primary Care Unavailable Basilio, Errol Attending Unavailable Basilio, Dmitry Referring Unavailable Ceja, Alverto Primary Care Unavailable Ceja, Alverto Primary Care Unavailable Crystal Justice Attending Unavailable Ceja, Alverto Referring Unavailable Ceja, Alverto Primary Care Unavailable Basilio, Errol Attending Unavailable Ceja, Alverto Referring Unavailable Ceja, Alevrto Primary Care Unavailable Basilio, Errol Referring Unavailable Basilio, Errol Attending Unavailable Ceja, Alverto Primary Care Unavailable Basilio, Dmitry Referring Unavailable Basilio, Dmitry Attending Unavailable Dakota FITCH, Myriam Junior Unavailable [phone] ROSA HENSON Attending Unavailable CEJA, ALVERTO L Primary Care Unavailable CEJA, ALVERTO L Primary Care Unavailable SIXTO, ROSA Referring Unavailable SIXTO, ROSA Attending Unavailable CEJA, ALVERTO L Primary Care Unavailable CEJA, ALVERTO L Primary Care Unavailable KOPRIVANAC, MARIJAN Referring Unavailable KOPRIVANAC, MARIJAN Attending Unavailable CEJA, ALVERTO L Primary Care Unavailable KOPRIVANAC, MARIJAN Referring Unavailable SIXTO, ROSA Referring Unavailable CEJA, ALVERTO L Primary Care Unavailable CEJA, ALVERTO L Referring Unavailable CEJA, ALVERTO L Primary Care Unavailable KOPRIVANAC, MARIJAN Referring Unavailable CEJA, ALVERTO L Primary Care Unavailable CEJA, ALVERTO L Primary Care Unavailable KOPRIVANAC, MARIJAN Attending Unavailable KOPRIVANAC, MARIJAN Referring Unavailable CEJA, ALVERTO L Primary Care Unavailable KOPRIVANAC, MARIJAN Referring Unavailable CEJA, ALVERTO L Primary Care Unavailable KALAHASTI, VIDYASAGAR Referring Unavailabl e CEJA, ALVERTO L Primary Care Unavailable CHO, SUNG ALLA L Attending Unavailable CEJA, ALVERTO L Primary Care Unavailable KOPRIVANAC, MARIJAN Referring Unavailable CEJA, ALVERTO L Primary Care Unavailable CHO, SUNG ALLA L Attending Unavailable CHO, SUNG ALLA L Admitting Unavailable CEJA, ALVERTO L Primary Care Unavailable KOPRIVANAC, MARIJAN Attending Unavailable KOPRIVANAC, MARIJAN Admitting Unavailable CEJA, ALVERTO L Primary Care Unavailable KALAHASTI, VIDYASAGAR Referring Unavailabl e CEJA, ALVERTO L Referring Unavailable CEJA, ALVERTO L Primary Care Unavailable CEJA, ALVERTO L Referring Unavailable CEJA, ALVERTO L Primary Care Unavailable CEJA, ALVERTO L Referring Unavailable CEJA, ALVERTO L Primary Care Unavailable CEJA, ALVERTO L Primary Care Unavailable CEJA, ALVERTO L Primary Care Unavailable KAROLINA JONAS Attending Unavailable KOPRIVANAC, MARIJAN Referring Unavailable KOPRIVANAC, MARIJAN Referring Unavailable CEJA, ALVERTO L Primary Care Unavailable CEJA, ALVERTO L Primary Care Unavailable KOPRIVANAC, MARIJAN Referring Unavailable CEJA, ALVERTO L Primary Care Unavailable KOPRIVANAC, MARIJAN Referring Unavailable Allergies Allergy Classification Reported Allergen(s) Allergy Type Date of Onset Reaction(s) Facility Corticosteroids (1 source) predniSONE Drug Allergy 08-12-20 Mental Status Change [facility] Work Phone: Iodine (and Iodine containting drugs) (1 source) Iodine Drug Allergy 08-12-20 Other: See Comments [facility] (20 sources) Iodine; Translations: [IODINE] Drug Allergy 08-12-20 Other: See [facility] (20 sources) predniSONE; Translations: [PREDNISONE] Drug Allergy 08-12-20 Mental Status Change [facility] Work Phone: (7 sources) Triiodobenzoic Acids Allergy to substance 01-10-20 convulsions [facility] (20 sources) [place] silk preparation; Translations: [CORN] Drug Allergy 07-03-20 Other: See Comments [facility] (20 sources) Lactose; Translations: [LACTOSE] Drug Allergy 07-03-20 GI Upset [facility] (20 sources) potato allergenic extract; Translations: [POTATO] Drug Allergy 07-03-20 Other: See [facility] (20 sources) tree nut, unspecified; Translations: [TREE NUTS] Drug Intolerance 07-03-20 Other: See [facility] (20 sources) Wheat gluten extract; Translations: [GLUTEN] Drug Allergy 07-03-20 GI Upset [facility] (20 sources) Pork/Porcine Containing Products; Translations: [PORK/PORCINE CONTAINING PRODUCTS] Drug Intolerance 08-28-20 24 Other: See Comments [facility] (20 sources) Solanum- Nightshade Vegetables; Translations: [SOLANUM- NIGHTSHADE VEGETABLES] Drug Intolerance 07-03-20 24 Other: See Comments [facility] (1 source) Gluten Drug allergy (disorder) 03-07-20 [facility] (1 source) Lactose Drug Allergy 03-07-20 [facility] (1 source) predniSONE Drug Allergy 03-07-20 [facility] (1 source) tree nut, unspecified Drug allergy (disorder) 03-07-20 [facility] (1 source) Iodinated Contrast Media Drug allergy (disorder) 03-07-20 [facility] (1 source) pork derived (porcine) Drug allergy (disorder) 03-07-20 [facility] Medications Current Medications Medication Drug Class(es) Dates Sig (Normalized) Sig (Original) acetaminophen 325 mg oral tablet (20 sources) Start: 07-09-2024 take 2 tablets by mouth every four hours as needed acetaminophen (TYLENOL) 325 mg tablet Take 2 tablets by mouth every 4 hours as needed for pain. 07/09/2024 Active aluminum hydroxide 40 mg/ml / magnesium hydroxide 40 mg/ml / simethicone 4 mg/ml oral suspension (20 sources) Start: 07-09-2024 aluminum-magnesium hydroxide-simethico ne 200-200-20 mg/5 mL suspension Take 30 mL by mouth as needed ([facility]). 07/09/2024 Active aspirin 81 mg chewable tablet (20 sources) Platelet Aggregation Inhibitor, Nonsteroidal Anti-inflammatory Drug Start: 07-10-2024 take 1 tablet by mouth once daily in the evening aspirin 81 mg chewable tablet Take 1 tablet by mouth once daily. 100 tablet 1 07/09/2024 1:13 PM EDT 07/10/2024 Active docusate sodium 50 mg / sennosides, halfway 8.6 mg oral tablet (20 sources) Start: 07-09-2024 take 2 tablets by mouth every twelve hours as needed senna-docusate (SENNA-S) 8.6-50 mg per tablet Take 2 tablets by mouth two times a day as needed for constipation. 07/09/2024 Active doxycycline hyclate 100 mg oral tablet (20 sources) Tetracycline-class Drug Start: 10-25-2023 doxycycline (VIBRA-TABS) 100 mg tablet Take 1 tablet by mouth prn, at first sign of tick bite. 20 tablet 10/25/2023 Active Start: 02-11-2022 End: 06-24-2022 doxycycline (VIBRA-TABS) 100 mg tablet Take 1 tablet by mouth prn, at first sign of tick bite. 20 tablet 0 02/11/2022 06/24/2022 Discontinued Comment on above: Take 1 tablet by lissy th prn, at first sign of tick bite. Take 1 tablet PO at onset of tick bite furosemide 20 mg oral tablet (20 sources) Loop Diuretic Start: 07-10-20 End: 07-13-20 take 1 tablet by mouth once daily in the evening furosemide (LASIX) 20 mg tablet Take 1 tablet by mouth once daily for 3 days. 3 tablet 07/09/2024 1:13 PM EDT 07/10/2024 Active levothyroxine sodium 0.075 mg oral tablet (20 sources) l-Thyroxine Start: 02-21-20 take 1 tablet by mouth once daily for thyroid dysfunction levothyroxine (LEVOXYL) 75 mcg tablet Indications: Mariana's thyroiditis Take 1 tablet by mouth once daily. Take on empty stomach. For Thyroid 90 tablet 1 02/20/2025 Active Start: 02-06-2025 End: 08-05-2025 take 1 tablet by mouth once daily before breakfast levothyroxine (SYNTHROID) 88 mcg tablet Indications: Mariana's thyroiditis Take 1 tablet by mouth daily before breakfast. 90 tablet 1 02/06/2025 08/05/2025 Active Start: 04-19-2021 End: 02-06-2025 take 1 tablet by mouth once daily for thyroid dysfunction levothyroxine (LEVOXYL) 75 mcg tablet Indications: Mariana's thyroiditis Take 1 tablet by mouth once daily. Take on empty stomach. For Thyroid 90 tablet 1 08/29/2024 02/06/2025 Discontinued Comment on above: Take 1 tablet by lissy th once daily. Take on empty stomach. For Thyroid magnesium oxide 400 mg oral tablet (20 sources) Start: 07-09-2024 End: 07-23-2024 take 1 tablet by mouth twice daily in the evening magnesium oxide (MAG-OX) 400 mg (241.3 mg magnesium) tablet Take 1 tablet by mouth two times a day for 14 days. 28 tablet 07/09/2024 1:13 PM EDT 07/09/2024 Active metoprolol tartrate 25 mg oral tablet (20 sources) beta-Adrenergic Ashley Start: 07-09-2024 take 1 tablet by mouth every twelve hours in the evening metoprolol tartrate, short acting, (LOPRESSOR) 25 mg tablet Take 1 tablet by mouth every 12 hours. 60 tablet 1 07/09/2024 1:13 PM EDT 07/09/2024 Active Start: 02-11-2022 End: 11-04-2022 take 1 tablet by mouth once daily at bedtime metoprolol succinate ER (TOPROL XL) 25 mg 24 hr tablet Indications: Palpitations , Aortic valve disorder , Aortic dilatation (HCC) Take 1 tablet by mouth daily at bedtime. 90 tablet 1 02/11/2022 11/04/2022 Discontinued Start: 04-19-2021 End: 02-24-2023 Metoprolol Succinate Discont inued EACH PO April 19, 2021 12:00am February 24, 2023 8:15am Comment on above: Take 1 tablet by lissy th daily at bedtime. mupirocin 0.02 mg/mg topical ointment (1 source) RNA Synthetase Inhibitor Antibacterial Start: 07-03-20 mupirocin (BACTROBAN) 2 % ointment Apply a small amount in each nostril using a cotton swab twice the day before surgery and once the morning of surgery. 22 g 07/03/2024 Active oxyCODONE hydrochloride 5 mg oral tablet (8 sources) Opioid Agonist Start: 07-09-20 End: 07-16-20 take 1 tablet by mouth every six hours as needed oxyCODONE IR (ROXICODONE) 5 mg immediate release tablet Indications: Post-op pain take 1 tablet by mouth every 6 hours as needed for up to 7 days. 28 tablet 07/09/2024 07/16/2024 Active perflutren lipid microspheres 1.3 mL in NaCl (PF) 0.9% 10 mL injection (DEFINITY) (20 sources) Start: 07-04-20 End: 07-11-20 perflutren lipid microspheres 1.3 mL in NaCl (PF) 0.9% 10 mL injection (DEFINITY) Start: 06-24-2022 End: 09-23-2023 perflutren lipid microsphere s 1.3 mL in NaCl (PF) 0.9% 10 mL injection (DEFINITY) Start: 05-11-2021 End: 08-10-2022 perflutren lipid microsphere s 1.3 mL in NaCl (PF) 0.9% 10 mL injection (DEFINITY) polyethylene glycol 3350 41204 mg powder for oral solution (20 sources) Osmotic Laxative Start: 07-09-2024 take 17 g enteral route every twelve hours as needed polyethylene glycol 3350 17 gram packet 1 Packet by ORAL/FEEDING TUBE route two times a day as needed for constipation. Dissolve dose in 4 - 8 ounces of liquid and take as directed. 07/09/2024 Active potassium chloride 10 meq extended release oral tablet (6 sources) Start: 07-09-2024 End: 07-12-2024 take 1 tablet by mouth once daily potassium chloride (K-TAB) 10 mEq tablet Take 1 tablet by mouth once daily for 3 days. 3 tablet 07/09/2024 07/12/2024 Active 125 ml sodium chloride 9 mg/ml prefilled syringe (20 sources) Start: 07-04-2024 End: 07-11-2024 sodium chloride 0.9 % (flush) 10 mL (BD POSIFLUSH) Start: 05-11-2021 End: 09-23-2023 sodium chloride 0.9 % (flush ) 10 mL (BD POSIFLUSH) tamsulosin hydrochloride 0.4 mg oral capsule (20 sources) alpha-Adrenergic Ashley Start: 07-10-2024 End: 08-09-2024 take 1 capsule by mouth once daily in the evening tamsulosin (FLOMAX) 0.4 mg Take 1 capsule by mouth once daily. 30 capsule 07/09/2024 1:13 PM EDT 07/10/2024 Active Completed/Discontinued Medications Medication Drug Class(es) Dates Sig (Normalized) Sig (Original) ALPRAZolam 0.5 mg oral tablet (2 sources) Benzodiazepine Start: 02-11-2022 End: 03-13-2022 take 1 tablet by mouth every twelve hours as needed for anxiety and anxiety ALPRAZolam (XANAX) 0.5 mg tablet Indications: Anxiety Take 1 tablet by mouth twice daily as needed for anxiety for up to 30 days. 30 tablet 2 02/11/2022 03/13/2022 Comment on above: [facility] as needed for anxiety for up to 30 days. amoxicillin 500 mg oral tablet (20 sources) Penicillin-class Antibacterial Start: 04-08-2024 End: 07-16-2024 take 4 tablets by mouth every hour Amoxicillin 500 mg tablet Take 4 tablets by mouth as directed. Take 1 hour prior to dental procedure for prophylaxis 12 tablet 1 04/08/2024 07/16/2024 Discontinued Start: 03-07-2022 End: 11-04-2022 take 4 tablets by mouth every hour Amoxicillin 500 mg tablet Take 4 tablets by mouth as directed. Take 1 hour prior to dental procedure for prophylaxis 12 tablet 1 03/07/2022 11/04/2022 Discontinued Comment on above: Take 4 tablets by [facility] as directed. Take 1 hour prior to dental procedure for prophylaxis cholecalciferol 0.025 mg oral capsule (7 sources) Vitamin D Start: End: 023 take 25 ug by mouth twice daily Cholecalciferol (Vitamin D3) Discontinued 25 MCG PO TWICE A DAY April 19, 2021 12:00am February 24, 2023 8:15am docosahexaenoic acid 144 mg / eicosapentaenoic acid 216 mg / vitamin e 2 unt oral capsule (7 sources) Start: End: 023 take 1 capsule by mouth twice daily [place]-3 Fatty Acids-Fish Oil (Fish Oil) 360-1,200 mg capsule Discontinued 1 CAP PO TWICE A DAY April 19, 2021 12:00am February 24, 2023 8:15am Garlic (7 sources) Non-Standardized Food Allergenic Extract Start: End: 023 take 1250 mg by mouth twice daily Garlic Discontinued 1250 MG PO TWICE A DAY April 19, 2021 12:00am February 24, 2023 8:15am Start: 04-19-2021 take 1250 mg by mouth twice da yue Garlic Active 1250 MG PO TWICE A DAY April 19, 2021 12:00am iv contrast (will be provided with radiology test) (20 sources) Start: 06-24-2024 inject 1 dose intravenously once iv contrast (will be provided with radiology test) CTA Chest. No IV access, insert saline lock prior to the sedation, infusion, injection for imaging exam. Discontinue saline lock post exam. If Pt. has a central line or IVAD, may access for administration according to line specific nursing protocol. Once exam is complete flush line and de-access according to line specific nursing protocol in the CT contrast administration guidelines link. 1 Each 06/24/2024 Active mecobalamin 1 mg chewable tablet (7 sources) Start: 04-19-2021 End: 02-24-2023 take 1 tablet by mouth once daily Mecobalamin (Vitamin B12) (B12 Active) 1,000 mcg tablet,chewable Discontinued 1000 MCG PO DAILY April 19, 2021 12:00am February 24, 2023 8:15am Miscellaneous Medical Supply (BLOOD PRESSURE CUFF) (20 sources) Start: 01-12-2022 End: 03-13-2023 Miscellaneous Medical Supply (BLOOD PRESSURE CUFF) Indications: Palpitations , Aortic valve disorder 1 Each once daily. 1 Each 0 01/12/2022 03/13/2023 Discontinued Start: 01-12-2022 Miscellaneous Medical Supply (BLOOD PRESSURE CUFF) Indications: Palpitations , Aortic valve disorder 1 Each once daily. 1 Each 0 01/12/2022 Active Comment on above: 1 Each once daily. Selenium (7 sources) Start: 04-19-2021 End: 02-24-2023 take 200 ug by mouth once daily Selenium Discontinued 200 MCG PO DAILY April 19, 2021 12:00am February 24, 2023 8:15am Start: 04-19-2021 take 200 ug by mouth once lois y Selenium Active 200 MCG PO DAILY April 19, 2021 12:00am Zinc (7 sources) Start: 04-19-2021 End: 02-24-2023 take 50 mg by mouth once daily Zinc Discontinued 50 MG PO DAILY April 19, 2021 12:00am February 24, 2023 8:15am Start: 04-19-2021 take 50 mg by mouth once daily Zinc Active 50 MG PO DAILY April 19, 2021 12:00am Problems Active Problems Problem Classification Problem Date Documented Da te Episodic/Chronic Abdominal pain (3 sources) Generalized abdominal pain; Translations: [Generalized abdominal pain] Episodic Allergic reactions (4 sources) Gluten sensitivity; Translations: [Non-celiac gluten sensitivity] Chronic Anxiety disorders (7 sources) Anxiety; Translations: [Anxiety disorder, unspecified] 07-02-2022 Chronic Aortic; peripheral; and visceral artery aneurysms (20 sources) Dilatation of aorta; Translations: [Aortic ectasia, unspecified site] Onset: 9 08-28-2019 Chronic Cardiac and circulatory congenital anomalies (20 sources) Bicuspid aortic valve; Translations: [Congenital insufficiency of aortic valve] Onset: 1 06-07-2021 Chronic Cardiac dysrhythmias (20 sources) Multiple premature ventricular complexes; Translations: [Ventricular premature depolarization] Onset: 4 07-06-2024 Chronic Cardiac dysrhythmias (20 sources) Palpitations; Translations: [Palpitations] Onset: 9 08-28-2019 Episodic Coagulation and hemorrhagic disorders (20 sources) Thrombocytopenic disorder; Translations: [Thrombocytopenia, unspecified] Onset: 4 07-06-2024 Chronic E Codes: Natural/environment (1 source) Tick bite; Translations: [Bitten or stung by nonvenomous insect and other nonvenomous arthropods, subsequent encounter] Episodic Gastritis and duodenitis (1 source) Gastroduodenitis; Translations: [Gastroduodenitis, unspecified, without bleeding] Episodic Headache; including migraine (4 sources) Headache; Translations: [Headaches] 02-05-2025 Episodic Heart valve disorders (20 sources) Aortic valve disorder; Translations: [Nonrheumatic aortic valve disorder, unspecified] Onset: 9 08-28-2019 Chronic Nutritional deficiencies (2 sources) Vitamin D deficiency; Translations: [Vitamin D deficiency, unspecified] Onset: 5 03-19-2025 Chronic Nutritional deficiencies (1 source) Cachexia; Translations: [Cachexia (HCC)] Onset: 3 Episodic Other circulatory disease (2 sources) Disorder of artery; Translations: [Disorder of arteries and arterioles, unspecified] 06-14-2024 Chronic Other circulatory disease (1 source) Disorder of arteries and arterioles, unspecified; Translations: [Disorder of artery or arteriole (HCC)] Onset: 4 Chronic Other connective tissue disease (4 sources) Cramp in lower limb; Translations: [Cramp and spasm] 02-05-2025 Episodic Other gastrointestinal disorders (20 sources) Celiac disease; Translations: [Celiac disease] Onset: 3 07-26-2023 Chronic Other gastrointestinal disorders (1 source) Celiac disease; Translations: [Celiac disease] Onset: 3 Chronic Other gastrointestinal disorders (1 source) Acute constipation; Translations: [Constipation, unspecified] Episodic Other gastrointestinal disorders (1 source) Dysphagia, oropharyngeal phase; Translations: [Oropharyngeal dysphagia] Onset: 3 Episodic Other gastrointestinal disorders (1 source) Dysphagia; Translations: [Dysphagia, unspecified] Episodic Other gastrointestinal disorders (3 sources) Ulceration of small intestine; Translations: [Ulcer of intestine] 04-13-2023 Episodic Other gastrointestinal disorders (1 source) Ulcer of intestine; Translations: [Ulceration of intestine] 09-01-2023 Episodic Other nervous system disorders (7 sources) Perioral numbness; Translations: [Anesthesia of skin] 01-17-2022 Episodic Other nervous system disorders (1 source) Pins and needles; Translations: [Paresthesia of skin] Episodic Other nutritional; endocrine; and metabolic disorders (20 sources) Hypocalcemia; Translations: [Hypocalcemia] Onset: 2 Chronic Other nutritional; endocrine; and metabolic disorders (2 sources) Intolerance to lactose; Translations: [Lactose intolerance, unspecified] Chronic Other nutritional; endocrine; and metabolic disorders (5 sources) Abnormal weight loss; Translations: [Loss of weight] Onset: 3 03-08-2023 Episodic Other nutritional; endocrine; and metabolic disorders (4 sources) Unintentional weight loss; Translations: [Abnormal weight loss] 03-08-2023 Episodic Other screening for suspected conditions (not mental disorders or infectious disease) (6 sources) Patient encounter status; Translations: [Encounter for screening for malignant neoplasm of prostate] Onset: 5 Episodic Other skin disorders (7 sources) Skin lesion; Translations: [Disorder of the skin and subcutaneous tissue, unspecified] 04-19-2021 Episodic Other upper respiratory disease (4 sources) Disorder of pharynx; Translations: [Pain in throat] 03-08-2023 Episodic Other upper respiratory disease (4 sources) Hoarse; Translations: [Dysphonia] 03-08-2023 Episodic Other upper respiratory disease (3 sources) Dysphonia; Translations: [Dysphonia] 03-08-2023 Episodic Other upper respiratory disease (3 sources) Pain in throat; Translations: [Throat pain] 03-08-2023 Episodic Residual codes; unclassified (7 sources) History of repair of thoracic aortic aneurysm; Translations: [Other specified postprocedural states] 07-10-2022 Episodic Residual codes; unclassified (4 sources) Weight change finding; Translations: [Other general symptoms and signs] Episodic Residual codes; unclassified (1 source) H/O cardiac surgery; Translations: [Other specified postprocedural states] 07-16-2024 Episodic Thyroid disorders (20 sources) Mariana thyroiditis; 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 thyroiditis] Onset: 9 08-28-2019 Chronic Unclassified (20 sources) Interactive Heart Surgery Education Onset: 06-26-2024 Unclassified (1 source) Headaches; Translations: [Headaches] Onset: Past or Other Problems Problem Classification Problem Date Documented Date Episodic/Chronic Acute posthemorrhagic anemia (20 sources) Acute posthemorrhagic anemia; Translations: [Acute posthemorrhagic anemia] Onset: 07-04-2024 07-04-2024 Episodic Blindness and vision defects (10 sources) Binocular diplopia; Translations: [Tunnel vision of bilateral eyes] Onset: 02-05-2025 02-05-2025 Episodic Diabetes mellitus without complication (20 sources) Metabolic stress hyperglycemia; Translations: [Hyperglycemia, unspecified] Onset: 07-04-2024 07-04-2024 Episodic Fluid and electrolyte disorders (20 sources) Hypervolemia; Translations: [Fluid overload, unspecified] Onset: 07-06-2024 07-06-2024 Episodic Heart valve disorders (8 sources) Heart murmur; Translations: [Cardiac murmur, unspecified] Onset: 07-17-2024 04-19-2021 Episodic Malaise and fatigue (20 sources) Fatigue; Translations: [Other fatigue] Onset: 03-04-2023 Episodic Nonspecific chest pain (20 sources) Chest pain; Translations: [Chest pain, unspecified] Onset: 07-15-2022 07-15-2022 Episodic Other connective tissue disease (20 sources) Dupuytren's contracture; Translations: [Palmar fascial fibromatosis [Dupuytren]] Onset: 05-11-2021 05-11-2021 Episodic Other connective tissue disease (20 sources) Cramp; Translations: [Cramp and spasm] Onset: 07-04-2022 Episodic Other connective tissue disease (20 sources) Muscle pain; Translations: [Myalgia, unspecified site] Onset: 12-20-2022 Episodic Other connective tissue disease (20 sources) Muscle weakness of limb; Translations: [Muscle weakness (generalized)] Onset: 07-26-2023 Episodic Other connective tissue disease (1 source) Cramp and spasm; Translations: [Leg cramping] Onset: 02-05-2025 Episodic Other connective tissue disease (1 source) Myalgia, unspecified site; Translations: [Myalgia] Onset: 12-20-2022 Episodic Other nervous system disorders (20 sources) Postoperative pain ; Translations: [Other acute postprocedural pain] Onset: 07-04-2024 07-04-2024 Episodic Other nervous system disorders (1 source) Other acute postprocedural pain; Translations: [Post-op pain] Onset: 07-04-2024 Episodic Other non-traumatic joint disorders (20 sources) Joint pain; Translations: [Pain in unspecified joint] Onset: 12-20-2022 Episodic Other nutritional; endocrine; and metabolic disorders (20 sources) Obese class I; Translations: [Obesity, unspecified] Onset: 12-26-2019 Resolved: 07-04-2024 12-26-2019 Chronic Other nutritional; endocrine; and metabolic disorders (20 sources) Weight loss; Translations: [Abnormal weight loss] Onset: 12-20-2022 Episodic Other nutritional; endocrine; and metabolic disorders (12 sources) Weight decreased; Translations: [Abnormal weight loss] Onset: 12-20-2022 12-20-2022 Episodic Pleurisy; pneumothorax; pulmonary collapse (20 sources) Atelectasis; Translations: [Atelectasis] Onset: 07-06-2024 07-06-2024 Episodic Residual codes; unclassified (20 sources) Transition of care; Translations: [Other specified health status] Onset: 07-08-2024 07-09-2024 Episodic Results Test Name Value Interpretation Reference Range Facility PSA SerPl-mCncon 06-13-2025 Prostate specific Ag [Mass/Vol] 1.64 ng/mL Normal <2.60 [facility] Comment on above: Order Comment: Speci men Type: BLOOD SPECIMENOrdering Facility: [facility] Address: [address] [place] [address] Result Comment: Tota l PSA test methodology used is the Electrochemiluminescence Immunoassay by [employer]. Total PSA values by differing methodologies cannot be interchanged. Performed By: #### 2 857-1 ####[facility] LABCLIA [id number] [place] [address] [place] CNPNon 06-11-2025 CNPN Normal [facility] PSA/PROSTATE SPECIFIC ANTIGE N SCREENINGon 06-06-2025 Prostate specific Ag [Mass/Vol] 2.90 ng/mL High <2.60 [facility] Comment on above: Order Comment: Speci men Type: BLOOD SPECIMENOrdering Facility: [facility] Address: [address] [place] [address] Result Comment: Tota l PSA test methodology used is the Electrochemiluminescence Immunoassay by [employer]. Total PSA values by differing methodologies cannot be interchanged.For an individual patient, the significance of a PSA level should be interpreted in a broad clinical context, including age, race, family history, digital rectal exam, prostate size, results of prior testing (prostate biopsy, free PSA, PCA3), and use of 5-alpha reductase inhibitors. Considering the high incidence of asymptomatic cancer in the general population that may not pose an ultimate risk to a patient, the decision to recommend urological evaluation or prostate biopsy should be individualized after consideration of all these factors.REFERENCE:Maik Reeves M.D., M.P.H., Ramiro Toth M.D., Ph.D., Balaji Alvarado M.D., Alessia Lopez, M.P.H., Estefania Covarrubias Sc.D. Effect of Verification Bias on Screening for Prostate Cancer by Measurement of Prostatic Specific Antigen. N Engl J Med 2003,349:335-42. Performed By: #### P SAS1 ####[facility] LABIA [id number] [place] [id number] [place] T3 SerPl-mCncon 06-06-2025 T3 [Mass/Vol] 106 ng/dL Normal 79-165 [facility] Comment on above: Order Comment: Speci men Type: BLOOD SPECIMENOrdering Facility: [facility] Address: [address] [place] [address] Performed By: #### 3 024-7, 3053-6, 3016-3 ####[facility] [id number] [place] [id number] [place] T4 Free SerPl-mCncon 025 Free T4 [Mass/Vol] 1.6 ng/dL Normal 0.9-1.7 [facility] Comment on above: Order Comment: Speci men Type: BLOOD SPECIMENOrdering Facility: [facility] Address: [address] [place] [address] Performed By: #### 3 024-7, 3053-6, 3016-3 ####[facility] [id number] [place] [address] [place] TSH SerPl-aCncon 06-06-2025 TSH Qn 2.870 m[IU]/L Normal 0.270-4.20 0 [facility] Comment on above: Order Comment: Speci men Type: BLOOD SPECIMENOrdering Facility: [facility] Address: [address] [place] [address] Performed By: #### 3 024-7, 3053-6, 3016-3 ####[facility] [id number] [place] [id number] [place] CNPNon 05-27-2025 CNPN Normal [facility] 25(OH)D3 SerPl-mCncon 2024 25-hydroxyvitamin D3 [Mass/Vol] 52.7 ng/mL Normal 31.0-80.0 [facility] Comment on above: Order Comment: Specchelsey funez Type: BLOOD SPECIMENOrdering Facility: [facility] Address: [address] [place] [address] Result Comment: Clas sification of 25 [place] Vitamin D status:Deficiency/Insufficiency: < or = 30 ng/ml.Sufficiency/Optimal Levels: 31-80 ng/mLToxicity: > 100 ng/mL.Test performed by chemiluminescent immunoassay. Performed By: #### 1 989-3 ####[facility] LABIA [id number] [place] [id number] [place] 25-hydroxyvitamin D3 [Mass/V ol]on 03-21-2025 Interpretation and review of laboratory results Normal [facility] The reference range interval was based on an analysis of samples from healthy adults and may not pertain to children from 0-18 years old. [facility] No Panel Informationon 03-21 Interpretation and review of laboratory results Normal [facility] T3, FREEon 03-21-2025 Free T3 [Mass/Vol] 2.9 pg/mL 2.3 - 4.1 pg/mL [facility] T3Free SerPl-ncon 03-21-20 25 Free T3 [Mass/Vol] 2.9 pg/mL Normal 2.3-4.1 [facility] Comment on above: Order Comment: Specchelsey funez Type: BLOOD SPECIMENOrdering Facility: [facility] Address: [address] [place] [address] Performed By: #### 2 986-8, 3051-0, 3016-3, 3024-7 ####[facility] LABIA [id number] [place] [id number] [place] T4 FREE/FREE THYROXINEon Free T4 [Mass/Vol] 1.7 ng/dL 0.9 - 1.7 ng/dL [facility] T4 Free SerPl-mCncon 025 Free T4 [Mass/Vol] 1.7 ng/dL Normal 0.9-1.7 [facility] Comment on above: Order Comment: Speci men Type: BLOOD SPECIMENOrdering Facility: [facility] Address: [address]IS [place] [id number] Performed By: #### 2 986-8, 3051-0, 3016-3, 3024-7 ####[facility] LABIA [id number] [address] [address] [place] TESTOSTERONE, TOTAL BY IMMUN OAForex ExpressAY (ADULT MALES, OR INDIVIDUALS ON TESTOSTERONE THERAPY)on 03-21-2025 Testosterone [Mass/Vol] 431 ng/dL 193 - 824 ng/dL [facility] Comment on above: A testosterone level in the 193-320 ng/dL range with associated clinical symptoms is considered low and may indicate hypogonadism (from NEJM 2010 363:123-135). Results >320 ng/dL are considered normal. THYROID STIMULATING HORMONEo n 03-21-2025 TSH Qn 2.63 m[IU]/L [facility] TSH SerPl-aCncon 03-21-2025 TSH Qn 2.630 m[IU]/L Normal 0.270-4.20 0 [facility] Comment on above: Order Comment: Speci men Type: BLOOD SPECIMENOrdering Facility: [facility] Address: [address] [place], [place] [address] [address] Performed By: #### 2 986-8, 3051-0, 3016-3, 3024-7 ####[facility] LABBRIGHTLOOK [facility] [id number] [place] [id number] [place] Testost SerPl-mCncon 025 Testosterone [Mass/Vol] 431 ng/dL Normal 193-824 C [facility] Comment on above: Order Comment: Speci men Type: BLOOD SPECIMENOrdering Facility: [facility] Address: [address] [place], [place] [address] [address] Result Comment: A te stosterone level in the 193-320 ng/dL range with associated clinical symptoms is considered low and may indicate hypogonadism (from NEJM 2010 363:123-135). Results >320 ng/dL are considered normal. Performed By: #### 2 986-8, 3051-0, 3016-3, 3024-7 ####[facility] LABCLIA [id number] [facility] CENTERKeith [place] [id number] [place] VITAMIN D 25 HYDROXYon 03-21 25-hydroxyvitamin D3 [Mass/Vol] 52.7 ng/mL 31.0 - 80.0 ng/mL [facility] Comment on above: Classification of 25 [place] Vitamin D status: Deficiency/Insufficiency: < or = 30 ng/ml. Sufficiency/Optimal Levels: 31-80 ng/mL Toxicity: > 100 ng/mL. Test performed by chemiluminescent immunoassay. [facility] CNPN Normal [facility] Cardiology Visit Reporton Cardiology Visit Report [facility] [address] [place], [place] [address] OFFICE VISIT Date of Service: 03/07/25 MR#: [id number] Acct: [id number] Name: THUY KIM Rep #: [id number] : 1965 Provider: ALEKSANDR farrell Age/Sex: 59/M Location[place] [facility] Status: Signed HPI HPI History of Present Illness Details: Pleasant 59-year-old man who presents to the office today for a cardiovascular follow up visit. He has a history of bicuspid aortic valve who was being followed by the primary care physician with serial EKGs. He eventually started having symptoms of shortness of breath and underwent an echocardiogram which demonstrated a dilated aortic root measuring 4.1 x 3.3 cm a functional anatomic bicuspid valve with a valve area of 1.6 cm???. He was transferred to the [facility] where he underwent aortic valve replacement with a 25 mm Inspiris valve after he had had a cardiac catheterization which demonstrated minimal coronary disease with a 30% first diagonal LAD stenosis. He did well postoperatively and had a postoperative echocardiogram demonstrated ejection fraction of 54% ???5 at peak gradient of 20 mmHg across the aortic valve and a mean gradient of 13 mmHg. From a cardiac standpoint, the patient is doing well. He does have occasional palpitations. He denies any palpitations, chest pain, pressure or heaviness. He denies SOB, Orthopnea, and PND. He does not have bleeding issues; no blood in urine, stool, or nosebleeds. He does acknowledge a decrease in energy level. He denies myalgias, or claudication. He does not have edema, or sudden weight gain. He denies lightheadedness, dizziness, syncopal or near syncopal episodes, and headaches. 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 Accompanied by: Is patient in pain?: No Allergies gluten Allergy (Severe, Verified 03/07/25 08:07) GI upset pork derived (porcine) Allergy (Severe, Verified 03/07/25 08:07) palpitations tree nut (tree nuts) Allergy (Severe, Verified 03/07/25 08:07) palpitations Iodinated Contrast Media Allergy (Intermediate, Verified 03/07/25 08:07) convulsions lactose Adverse Reaction (Severe, Verified 03/07/25 08:07) GI upset prednisone Adverse Reaction (Intermediate, Verified 03/07/25 08:07) psychosis Medications ???Medication ???Instructions ???Recorded ???Confirmed ???Type levothyroxine 75 mcg tablet 75 mcg PO QDAY 07/17/24 03/07/25 H istory selenium 100 mcg tablet 100 mcg PO QDAY 03/07/25 03/07/25 History zinc gluconate 100 mg tablet 100 mg PO QDAY 03/07/25 03/07/25 H istory Ejection fraction %: 54 PFSH Medical History Celiac disease Bradycardia Palpitations Gluten intolerance Lactose intolerance Weight loss, unintentional Acute constipation Muscle weakness Abdominal pain Myalgia Fatigue Aortic stenosis Migraine-cluster headache syndrome Bicuspid aortic valve Aortic root dilation Former tobacco use Aortic aneurysm Mariana's thyroiditis Hypothyroidism Cardiac murmur Anxiety Surgical History S/P AVR (07/04/24) History of medial meniscus repair of right knee History of appendectomy Family History Father Asthma Heart disease Hypertension Thyroid disorder Diabetes Kidney disease Sister Cancer skin Uncle Throat cancer Mother Heart disease Emphysema lung Social History household members: spouse Smoking Status: Former smoker how long ago did patient quit smoking: Smoked 1 ppd x 5 years, quit 1979. alcohol intake: former substance use type: does not use ROS Const Const: Positive for fatigue; Negative for weakness, headache(s), daytime sleepiness or difficulty sleeping ENT ENT: Negative for headache(s), dizziness or Nosebleed/epistaxis Cardio Chest Pain: No Palpitations: Yes (have decreased) Edema: None Resp Respiratory: Negative for SOB with activity, SOB at rest, SOB orthopnea SOB lying down or Cough GI GI: Negative nausea, vomiting or heartburn Neuro Neuro: Negative for dizziness, lightheadedness, near syncope, headache(s) or weakness Endo Endo: Positive for fatigue Cardiology Exam Const Appearance: cooperative, healthy appearing, no acute distress, well developed and well groomed Nutritional Appearance: average (more content not included)... Normal [facility] MR Brain WO contraston 02-10 Radiology Study observation (narrative) [facility] IMPRESSION: Normal study. No evidence of an acute intracranial process or intracranial mass. Blood Bank Attendant: LELO Transcribe Date/Time: Feb 10 2025 1:37P Dictated by : EDIL RIZO MD This examination was interpreted and the report reviewed and electronically signed by: EDIL RIZO MD on Feb 10 2025 1:43PM [facility] DIVISION OF RADIOLOGY * * *Final Report* * * DATE OF EXAM: Feb 10 2025 1:22PM [facility] 0294 - MRI BRAIN WO IVCON / PROCEDURE REASON: multiple diagnoses * * * * Physician Interpretation * * * * EXAMINATION: MRI BRAIN WO IVCON CLINICAL HISTORY: Chronic episodic diplopia and tunnel vision and headaches. TECHNIQUE: Routine noncontrast MRI protocol including diffusion images. MQ: [id number] COMPARISON: 04/11/2023 RESULT: Acute Change: There is no evidence of restricted diffusion to suggest an acute infarct. Hemorrhage: Isolated punctate remote microhemorrhages are noted in the subcortical white matter of the inferior left cerebellar hemisphere. No evidence of prior parenchymal, subarachnoid or intraventricular hemorrhage otherwise on SWI. No new Mass Lesion/ Mass Effect: No evidence of an intracranial mass or extra-axial fluid collection. No significant mass effect. Chronic Change: The white matter is within normal limits of signal intensity for age. Parenchyma: No significant volume loss for age. The brain parenchyma is otherwise within normal limits of signal intensity and morphology. Ventricles: Normal caliber and morphology. Skull Base: Hypothalamic and pituitary region are grossly normal. Craniocervical junction is normal. No significant marrow replacement process in the skull base. Vasculature: Major intracranial arterial structures, and dural venous sinuses show typical flow void, suggesting patency by spin echo criteria. Other: The orbits are normal in appearance within the constraints of acquisition. Minimal mucosal thickening is noted in the ethmoid air cells. The paranasal sinuses, mastoid air cells and middle ear cavities are otherwise clear. DIVISION OF RADIOLOGY Provider, [facility] - 02/10/2025 * * *Final Report* * * DATE OF EXAM: Feb 10 2025 1:22PM [facility] 0294 - MRI BRAIN WO IVCON / PROCEDURE REASON: multiple diagnoses * * * * Physician Interpretation * * * * EXAMINATION: MRI BRAIN WO IVCON CLINICAL HISTORY: Chronic episodic diplopia and tunnel vision and headaches. TECHNIQUE: Routine noncontrast MRI protocol including diffusion images. MQ: [id number] COMPARISON: 04/11/2023 RESULT: Acute Change: There is no evidence of restricted diffusion to suggest an acute infarct. Hemorrhage: Isolated punctate remote microhemorrhages are noted in the subcortical white matter of the inferior left cerebellar hemisphere. No evidence of prior parenchymal, subarachnoid or intraventricular hemorrhage otherwise on SWI. No new Mass Lesion/ Mass Effect: No evidence of an intracranial mass or extra-axial fluid collection. No significant mass effect. Chronic Change: The white matter is within normal limits of signal intensity for age. Parenchyma: No significant volume loss for age. The brain parenchyma is otherwise within normal limits of signal intensity and morphology. Ventricles: Normal caliber and morphology. Skull Base: Hypothalamic and pituitary region are grossly normal. Craniocervical junction is normal. No significant marrow replacement process in the skull base. Vasculature: Major intracranial arterial structures, and dural venous sinuses show typical flow void, suggesting patency by spin echo criteria. Other: The orbits are normal in appearance within the constraints of acquisition. Minimal mucosal thickening is noted in the ethmoid air cells. The paranasal sinuses, mastoid air cells and middle ear cavities are otherwise clear. IMPRESSION IMPRESSION: Normal study. No evidence of an acute intracranial process or intracranial mass. Blood Bank Attendant: LELO Transcribe Date/Time: Feb 10 2025 1:37P Dictated by : EDIL RIZO MD This examination was interpreted and the report reviewed and electronically signed by: EDIL RIZO MD on Feb 10 2025 1:43PM EST [facility] MR Brain WO contrastOrdered By: Ccf Provider on 02-10-2025 [facility] MRI BRAIN WO IVCONon 025 MRI BRAIN WO IVCON Normal [facility] CNPNon 02-07-2025 CNPN Normal [facility] CBC panel Auto (Bld)on 02-05 Erythrocyte distribution width (RBC) [Ratio] 12.4 % 11.5 - 15.0 % [facility] Hematocrit (Bld) [Volume fraction] 49.9 % 39.0 - 51.0 % [facility] Hemoglobin (Bld) [Mass/Vol] 16.7 g/dL 13.0 - 17.0 g/dL [facility] Interpretation and review of laboratory results Abnormal [facility] MCH (RBC) [Entitic mass] 30.2 pg 26. 0 - 34.0 pg [facility] MCHC (RBC) [Mass/Vol] 33.5 g/dL 30.5 - 36.0 g/dL [facility] MCV (RBC) [Entitic vol] 90.2 fL 80.0 - 100.0 fL [facility] Nucleated RBC (Bld) [#/Vol] NINF [facility] Platelet mean volume (Bld) [Entitic vol] 12.6 fL 9.0 - 12.7 fL [facility] Platelets (Bld) [#/Vol] 120 10*3/uL Low [facility] RBC (Bld) [#/Vol] 5.53 10*6/uL 4.20 - 6.00 m/uL [facility] WBC (Bld) [#/Vol] 4.89 10*3/uL [facility] Erythrocyte distribution width (RBC) [Ratio] 12.4 % Normal 11.5-15.0 [facility] Comment on above: Order Comment: Speci men Type: BLOOD SPECIMENOrdering Facility: [facility] Address: [address] [place] [address] Performed By: #### 5 8410-2 ####[facility] LABCLIA [id number] [place] [address] [place] Hematocrit (Bld) [Volume fraction] 49.9 % Normal 39.0-51.0 [facility] Comment on above: Order Comment: Speci men Type: BLOOD SPECIMENOrdering Facility: [facility] Address: [address] [place] [address] Performed By: #### 5 8410-2 ####[facility] LABIA [id number] [place] [address] [place] Hemoglobin (Bld) [Mass/Vol] 16.7 g/dL Normal 13.0-17.0 [facility] Comment on above: Order Comment: Speci men Type: BLOOD SPECIMENOrdering Facility: [facility] Address: [address] [place] [address] Performed By: #### 5 8410-2 ####[facility] LABIA [id number] [place] [address] [place] MCH (RBC) [Entitic mass] 30.2 pg Normal 26.0-34.0 [facility] Comment on above: Order Comment: Speci men Type: BLOOD SPECIMENOrdering Facility: [facility] Address: [address] [place] [address] Performed By: #### 5 8410-2 ####[facility] LABIA [id number] [place] [address] [place] MCHC (RBC) [Mass/Vol] 33.5 g/dL Normal 30.5-36.0 [facility] Comment on above: Order Comment: Speci men Type: BLOOD SPECIMENOrdering Facility: [facility] Address: [address] [place] [address] Performed By: #### 5 8410-2 ####[facility] LABIA [id number] [place] [address] [place] MCV (RBC) [Entitic vol] 90.2 fL Normal 80.0-100.0 C [facility] Comment on above: Order Comment: Speci men Type: BLOOD SPECIMENOrdering Facility: [facility] Address: [address] [place] [address] Performed By: #### 5 8410-2 ####[facility] LABIA [id number] [place] [address] [place] Nucleated RBC (Bld) [#/Vol] 10*3/uL Normal <0.01 [facility] Comment on above: Order Comment: Speci men Type: BLOOD SPECIMENOrdering Facility: [facility] Address: [address] [place] [address] Performed By: #### 5 8410-2 ####[facility] LABIA [id number] [place] [address] [place] Platelet mean volume (Bld) [Entitic vol] 12.6 fL Normal 9.0-12.7 [facility] Comment on above: Order Comment: Speci men Type: BLOOD SPECIMENOrdering Facility: [facility] Address: [address] [place] [address] Performed By: #### 5 8410-2 ####[facility] LABIA [id number] [place] [address] [place] Platelets (Bld) [#/Vol] 120 10*3/uL Low 150-400 [facility] Comment on above: Order Comment: Speci men Type: BLOOD SPECIMENOrdering Facility: [facility] Address: [address] [place] [address] Performed By: #### 5 8410-2 ####[facility] LABCLIA [id number] [place] [address] [place] RBC (Bld) [#/Vol] 5.53 10*6/uL Normal 4.20-6.00 [facility] Comment on above: Order Comment: Speci men Type: BLOOD SPECIMENOrdering Facility: [facility] Address: [address] [place] [address] Performed By: #### 5 8410-2 ####[facility] LABCLIA [id number] [place] [address] [place] WBC (Bld) [#/Vol] 4.89 10*3/uL Normal 3.70-11.00 [facility] Comment on above: Order Comment: Speci men Type: BLOOD SPECIMENOrdering Facility: [facility] Address: [address] [place] [address] Performed By: #### 5 8410-2 ####[facility] LABCLIA [id number] [place] [address] [place] CNOVon 02-05-2025 CNOV Normal [facility] Cobalamin (Vitamin B12) [Mas s/Vol]on 02-05-2025 Interpretation and review of laboratory results Normal [facility] Comprehensive metabolic 2000 panelon 02-05-2025 Albumin [Mass/Vol] 4.6 g/dL 3.9 - 4.9 g/dL [facility] ALP [Catalytic activity/Vol] 88 U/L 38 - 113 U/L [facility] ALT [Catalytic activity/Vol] 25 U/L 10 - 54 U/L [facility] Anion gap [Moles/Vol] 12 mmol/L 8 - 15 mmol/L [facility] AST [Catalytic activity/Vol] 24 U/L 14 - 40 U/L [facility] Bilirubin [Mass/Vol] 0.9 mg/dL 0.2 - 1 .3 mg/dL [facility] Calcium [Mass/Vol] 9.4 mg/dL 8.5 - 10. 2 mg/dL [facility] Chloride [Moles/Vol] 105 mmol/L 98 - 10 7 mmol/L [facility] CO2 [Moles/Vol] 24 mmol/L 22 - 30 mmol/L [facility] Creatinine [Mass/Vol] 1.01 mg/dL 0.73 - 1.22 mg/dL [facility] GFR/1.73 sq M.predicted among non-blacks MDRD (S/P/Bld) [Vol rate/Area] 85 mL/min/{1.73_m2} - PINF [facility] Comment on above: Estimated Glomerular Filtration Rate (eGFR) is calculated using the 2020 CKD-EPI creatinine equation. This equation utilizes serum creatinine, sex, and age as parameters. The creatinine assay has traceable calibration to isotope dilution-mass spectrometry. Refer to KDIGO guidelines for clinical interpretation. In patients with unstable renal function, e.g. those with acute kidney injury, the eGFR may not accurately reflect actual GFR. Glucose [Mass/Vol] 104 mg/dL High 74 - 99 mg/dL [facility] Comment on above: The [place] Diabete s Association (ADA) provides guidance for cutoff values for fasting glucose and random glucose. The ADA defines fasting as no caloric intake for at least 8 hours. Fasting plasma glucose results between 100 to 125 mg/dL indicate increased risk for diabetes (prediabetes). Fasting plasma glucose results greater than or equal to 126 mg/dL meet the criteria for diagnosis of diabetes. In the absence of unequivocal hyperglycemia, results should be confirmed by repeat testing. In a patient with classic symptoms of hyperglycemia or hyperglycemic crisis, random plasma glucose results greater than or equal to 200 mg/dL meet the criteria for diagnosis of diabetes. Reference: Standards of Medical Care in Diabetes 2016, [place] Diabetes Association. Diabetes Care. 2016.39(Suppl 1). Interpretation and review of laboratory results Abnormal [facility] Potassium [Moles/Vol] 5.1 mmol/L 3.7 - 5.1 mmol/L [facility] Protein [Mass/Vol] 6.9 g/dL 6.3 - 8.0 g/dL [facility] Sodium [Moles/Vol] 141 mmol/L 136 - 144 mmol/L [facility] Urea nitrogen [Mass/Vol] 25 mg/dL High 9 - 24 mg/dL [facility] Albumin [Mass/Vol] 4.6 g/dL Normal 3.9-4.9 [facility] Comment on above: Order Comment: Speci men Type: BLOOD SPECIMENOrdering Facility: [facility] Address: [address] [place] [address] Performed By: #### 5 0190-8, 98389-4, 2132-07 ####[facility] LABIA [id number] [place] [address] [place] ALP [Catalytic activity/Vol] 88 U/L Normal 38-113 [facility] Comment on above: Order Comment: Speci men Type: BLOOD SPECIMENOrdering Facility: [facility] Address: [address] [place] [address] Performed By: #### 5 0190-8, , 2132-07 ####[facility] LABIA [id number] [place] [address] [place] ALT [Catalytic activity/Vol] 25 U/L Normal 10-54 [facility] Comment on above: Order Comment: Speci men Type: BLOOD SPECIMENOrdering Facility: [facility] Address: [address] [place] [address] Performed By: #### 5 0190-8, , 2132-07 ####[facility] LABIA [id number] [place] [address] [place] Anion gap [Moles/Vol] 12 mmol/L Normal 8-15 [facility] Comment on above: Order Comment: Speci men Type: BLOOD SPECIMENOrdering Facility: [facility] Address: [address] [place] [address] Performed By: #### 5 0190-8, , 2132-07 ####[facility] LABIA [id number] [place] [address] [place] AST [Catalytic activity/Vol] 24 U/L Normal 14-40 [facility] Comment on above: Order Comment: Speci men Type: BLOOD SPECIMENOrdering Facility: [facility] Address: [address] [place] [address] Performed By: #### 5 0190-8, , 2132-07 ####[facility] LABCLIA [id number] [address] [address] [place] Bilirubin [Mass/Vol] 0.9 mg/dL Normal 0.2-1.3 [facility] Comment on above: Order Comment: Speci men Type: BLOOD SPECIMENOrdering Facility: [facility] Address: [address] [place] [address] Performed By: #### 5 0190-8, , 2132-07 ####[facility] LABCLIA [id number] [place] [address] [place] Calcium [Mass/Vol] 9.4 mg/dL Normal 8.5-10.2 [facility] Comment on above: Order Comment: Speci men Type: BLOOD SPECIMENOrdering Facility: [facility] Address: [address] [place] [address] Performed By: #### 5 0190-8, , 2132-07 ####[facility] LABCLIA [id number] [place] [address] [place] Chloride [Moles/Vol] 105 mmol/L Normal 98-107 [facility] Comment on above: Order Comment: Speci men Type: BLOOD SPECIMENOrdering Facility: [facility] Address: [address] [place] [address] Performed By: #### 5 0190-8, , 2132-07 ####[facility] LABCLIA [id number] [address] [address] [place] CO2 [Moles/Vol] 24 mmol/L Normal 22-30 [facility] Comment on above: Order Comment: Speci men Type: BLOOD SPECIMENOrdering Facility: [facility] Address: [address] [place] [address] Performed By: #### 5 0190-8, , 2132-07 ####[facility] LABCLIA [id number] [address] [address] [place] Creatinine [Mass/Vol] 1.01 mg/dL Normal 0.73-1.22 [facility] Comment on above: Order Comment: Spike funez Type: BLOOD SPECIMENOrdering Facility: [facility] Address: [address] [place] [address] Performed By: #### 5 0190-8, 43184-7, 2132-07 ####[facility] LABIA [id number] [address] [address] [place] Creatinine and Glomerular filtration rate.predicted panel (S/P/Bld) 85 mL/min/1.73m??? Normal >=60 [facility] Comment on above: Order Comment: Spike funez Type: BLOOD SPECIMENOrdering Facility: [facility] Address: [address] [place] [address] Result Comment: Lorenza mated Glomerular Filtration Rate (eGFR) is calculated using the 2020 CKD-EPI creatinine equation. This equation utilizes serum creatinine, sex, and age as parameters. The creatinine assay has traceable calibration to isotope dilution-mass spectrometry. Refer to KDIGO guidelines for clinical interpretation. In patients with unstable renal function, e.g. those with acute kidney injury, the eGFR may not accurately reflect actual GFR. Performed By: #### 5 0190-8, 71076-9, 2132-07 ####[facility] LABIA [id number] [address] [address] [place] Glucose [Mass/Vol] 104 mg/dL High 74-99 [facility] Comment on above: Order Comment: Speci men Type: BLOOD SPECIMENOrdering Facility: [facility] Address: [address] [place] [address] Result Comment: The [place] Diabetes Association (ADA) provides guidance for cutoff values for fasting glucose and random glucose. The ADA defines fasting as no caloric intake for at least 8 hours. Fasting plasma glucose results between 100 to 125 mg/dL indicate increased risk for diabetes (prediabetes).Fasting plasma glucose results greater than or equal to 126 mg/dL meet the criteria for diagnosis of diabetes. In the absence of unequivocal hyperglycemia, results should be confirmed by repeat testing. In a patient with classic symptoms of hyperglycemia or hyperglycemic crisis, random plasma glucose results greater than or equal to 200 mg/dL meet the criteria for diagnosis of diabetes.Reference: Standards of Medical Care in Diabetes 2016, [place] Diabetes Association. Diabetes Care. 2016.39(Suppl 1). Performed By: #### 5 0190-8, , 2132-07 ####[facility] LABCLIA [id number] [address] [address] [place] Potassium [Moles/Vol] 5.1 mmol/L Normal 3.7-5.1 [facility] Comment on above: Order Comment: Spike funez Type: BLOOD SPECIMENOrdering Facility: [facility] Address: [address] [place] [address] Performed By: #### 5 0190-8, , 2132-07 ####[facility] LABCLIA [id number] [address] [address] [place] Protein [Mass/Vol] 6.9 g/dL Normal 6.3-8.0 [facility] Comment on above: Order Comment: Spike funez Type: BLOOD SPECIMENOrdering Facility: [facility] Address: [address] [place] [address] Performed By: #### 5 0190-8, , 2132-07 ####[facility] LABCLIA [id number] [address] [address] [place] Sodium [Moles/Vol] 141 mmol/L Normal 136-144 [facility] Comment on above: Order Comment: Stephaniei men Type: BLOOD SPECIMENOrdering Facility: [facility] Address: [address] [place] [address] Performed By: #### 5 0190-8, , 2132-07 ####[facility] LABCLIA [id number] [address] [address] [place] Urea nitrogen [Mass/Vol] 25 mg/dL High 9-24 [facility] Comment on above: Order Comment: Speci men Type: BLOOD SPECIMENOrdering Facility: [facility] Address: [address] [place] [address] Performed By: #### 5 0190-8, 07601-0, 2132-07 ####[facility] LABCLIA [id number] [place] [id number] [place] Iron and Iron binding capaci ty panelon 02-05-2025 Interpretation and review of laboratory results Normal [facility] Iron [Mass/Vol] 88 ug/dL 41 - 186 ug/dL [facility] Iron binding capacity [Mass/Vol] 385 ug/dL 232 - 386 ug/dL [facility] Iron/TIBC [Molar ratio] 22.9 % 15.0 - 57.0 % [facility] Iron [Mass/Vol] 88 ug/dL Normal 41-186 [facility] Comment on above: Order Comment: Speci men Type: BLOOD SPECIMENOrdering Facility: [facility] Address: [address] [place] [address] Performed By: #### 5 0190-8, , 2132-07 ####[facility] LABCLIA [id number] [address] [place] Iron binding capacity [Mass/Vol] 385 ug/dL Normal 232-386 [facility] Comment on above: Order Comment: Speci men Type: BLOOD SPECIMENOrdering Facility: [facility] Address: [address] [place], [place] [address] Performed By: #### 5 0190-8, , 2132-07 ####[facility] LABCLIA [id number] [place] [id number] [place] Iron/TIBC [Molar ratio] 22.9 % Normal 15.0-57.0 [facility] Comment on above: Order Comment: Speci men Type: BLOOD SPECIMENOrdering Facility: [facility] Address: [address] [place], [place] [address] Performed By: #### 5 0190-8, 27205-3, 2132-9 ####[facility] LABCLIA [id number] [place] [id number] [place] MAGNESIUMon 02-05-2025 Magnesium [Mass/Vol] 2.2 mg/dL 1.7 - 2 .3 mg/dL [facility] Magnesium SerPl-mCncon 02-05 Magnesium [Mass/Vol] 2.2 mg/dL Normal 1.7-2.3 [facility] Comment on above: Order Comment: Speci men Type: BLOOD SPECIMENOrdering Facility: [facility] Address: [address] [place], [place] [address] Performed By: #### 1 9123-9, 3016-3, 3024-7, 3053-6 ####[facility] LABCLIA [id number] [place] [id number] [place] Magnesium [Mass/Vol]on 02-05 Interpretation and review of laboratory results Normal [facility] No Panel Informationon 02-05 Interpretation and review of laboratory results Normal [facility] T3on 02-05-2025 T3 [Mass/Vol] 94 ng/dL 79 - 165 ng/dL [facility] T3 SerPl-ncon 02-05-2025 T3 [Mass/Vol] 94 ng/dL Normal 79-165 [facility] Comment on above: Order Comment: Speci men Type: BLOOD SPECIMENOrdering Facility: [facility] Address: [address] [place], [place] [address] [id number] Performed By: #### 1 9123-9, 3016-3, 3024-7, 3053-6 ####[facility] LABCLIA [id number] [place] [id number] [place] T4 FREE/FREE THYROXINEon Free T4 [Mass/Vol] 1.7 ng/dL 0.9 - 1.7 ng/dL [facility] T4 Free SerPl-mCncon 025 Free T4 [Mass/Vol] 1.7 ng/dL Normal 0.9-1.7 [facility] Comment on above: Order Comment: Spike funez Type: BLOOD SPECIMENOrdering Facility: [facility] Address: [address] [place] [address] Performed By: #### 1 9123-9, 3016-3, 3024-7, 3053-6 ####[facility] LABCLIA [id number] [place] [address] [place] THYROGLOBULIN ANTIBODYon Thyroglobulin Ab Qn [IU]/mL Normal <4.0 [facility] Comment on above: Order Comment: Spike funez Type: BLOOD SPECIMENOrdering Facility: [facility] Address: [address] [place] [address] Result Comment: The Thyroglobulin Antibody test was performed using the 5 CUPS and some sugar DXI paramagnetic particle chemiluminescent immunoassay method. Results obtained with different assay methods or kits cannot be used interchangeably. Performed By: #### T ABRAHAM ####[facility] LABIA [id number] [address] [place] THYROID PEROXIDASE ANTIBODYo n 02-05-2025 TPO Ab Qn 336.3 [IU]/mL High <5.6 [facility] Comment on above: Order Comment: Spike funez Type: BLOOD SPECIMENOrdering Facility: [facility] Address: [address] [place] [address] Result Comment: Thyr oid Peroxidase Antibody test is used as an aid in diagnosis of autoimmune thyroid disease. Clinical correlation is required. Performed By: #### M ICRO ####[facility] LABIA [id number] [place] [address] [place] THYROID STIMULATING HORMONEo n 02-05-2025 TSH Qn 3 m[IU]/L [facility] TSH SerPl-aCncon 02-05-2025 TSH Qn 3.000 m[IU]/L Normal 0.270-4.20 0 [facility] Comment on above: Order Comment: Speci men Type: BLOOD SPECIMENOrdering Facility: [facility] Address: [address] [place] [address] Performed By: #### 1 9123-9, 3016-3, 3024-7, 3053-6 ####[facility] LABCLIA [id number] [place] [address] [place] VITAMIN B12on 02-05-2025 Cobalamin (Vitamin B12) [Mass/Vol] 630 pg/mL 232 - 1245 pg/mL [facility] Vit B12 SerPl-mCncon 025 Cobalamin (Vitamin B12) [Mass/Vol] 630 pg/mL Normal 232-1245 [facility] Comment on above: Order Comment: Speci men Type: BLOOD SPECIMENOrdering Facility: [facility] Address: [address] [place] [address] Performed By: #### 5 0190-8, 27995-2, 2132-9 ####[facility] LABCLIA [id number] [place] [id number] [place] CNPTOUTREACHon 01-08-2025 CNPTOUTREACH Normal [facility] CNPTOUTREACHon 10-09-2024 CNPTOUTREACH Normal [facility] Cardiology Visit Reporton Cardiology Visit Report [facility] [address] [place], [place] [address] OFFICE VISIT Date of Service: 09/05/24 MR#: [id number] Acct: [id number] Name: THUY KIM Rep #: [id number] : 1965 Provider: Dr. Dmitry Richmond MD Age/Sex: 59/M [place] [facility] Status: Signed HPI HPI History of Present Illness Details: Pleasant 59-year-old man with a history of bicuspid aortic valve who was being followed by the primary care physician with serial EKGs. He eventually started having symptoms of shortness of breath and underwent an echocardiogram which demonstrated a dilated aortic root measuring 4.1 x 3.3 cm a functional anatomic bicuspid valve with a valve area of 1.6 cm???. He was transferred to the [facility] where he underwent aortic valve replacement with a 25 mm Inspiris valve after he had had a cardiac catheterization which demonstrated minimal coronary disease with a 30% first diagonal LAD stenosis. He did well postoperatively and had a postoperative echocardiogram demonstrated ejection fraction of 54% ???5 at peak gradient of 20 mmHg across the aortic valve and a mean gradient of 13 mmHg. He was discharged home and says that since has been discharged home he has felt tired fatigued mildly dizzy and near syncopal. His blood pressures have also been running low. I was asked to see him fairly urgently. 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 Required: No Is patient in pain?: No Allergies gluten Allergy (Severe, Verified 09/05/24 10:11) GI upset pork derived (porcine) Allergy (Severe, Verified 09/05/24 10:11) palpitations tree nut (tree nuts) Allergy (Severe, Verified 09/05/24 10:11) palpitations Iodinated Contrast Media Allergy (Intermediate, Verified 09/05/24 10:11) convulsions lactose Adverse Reaction (Severe, Verified 09/05/24 10:11) GI upset prednisone Adverse Reaction (Intermediate, Verified 09/05/24 10:11) psychosis Medications ???Medication ???Instructions ???Recorded ???Confirmed ???Type aspirin 81 mg tablet,delayed 81 mg PO QDAY 07/17/24 09/05/24 History release (Adult Aspirin Regimen) levothyroxine 75 mcg tablet 75 mcg PO QDAY 07/17/24 09/05/24 History metoprolol succinate 25 mg 12.5 mg (1/2 x 25 mg) PO .at 08/13/24 09/05/24 Rx tablet,extended release 24 hr bedtime #30 tabs Have you fallen in the past year?: No PFSH Medical History Celiac disease Bradycardia Palpitations Gluten intolerance Lactose intolerance Weight loss, unintentional Acute constipation Muscle weakness Abdominal pain Myalgia Fatigue Aortic stenosis Migraine-cluster headache syndrome Bicuspid aortic valve Aortic root dilation Former tobacco use Aortic aneurysm Mariana's thyroiditis Hypothyroidism Cardiac murmur Anxiety Surgical History S/P AVR (07/04/24) History of medial meniscus repair of right knee History of appendectomy Family History Father Asthma Heart disease Hypertension Thyroid disorder Diabetes Kidney disease Sister Cancer skin Uncle Throat cancer Mother Heart disease Emphysema lung Social History household members: spouse Smoking Status: Former smoker how long ago did patient quit smoking: Smoked 1 ppd x 5 years, quit 1979. alcohol intake: current alcohol intake frequency: a few times a month substance use type: does not use ROS Const Const: Positive for fatigue; Negative for weakness, headache(s), daytime sleepiness or difficulty sleeping ENT ENT: Negative for headache(s), dizziness or Nosebleed/epistaxis Cardio Chest Pain: No Palpitations: Yes (have decreased) Edema: None Resp Respiratory: Negative for SOB with activity, SOB at rest, SOB orthopnea SOB lying down or Cough GI GI: Negative nausea, vomiting or heartburn Neuro Neuro: Negative for dizziness, lightheadedness, near syncope, headache(s) or weakness Endo Endo: Positive for fatigue Cardiology Exam Const Appearance: cooperative, healthy appearing, no acute distress, well developed and well groomed Nutritional Appearance: average body habitus and well nourished Orientation: alert, awake and oriented x3 Head Head: normal to inspection, normocephalic and atraumatic Ears: hearing grossly normal bilaterally and ext (more content not included)... Normal [facility] CNPTOUTREACHon 08-08-2024 CNPTOUTREA Normal [facility] CR - History AND Physicalon 07-29-2024 CR - History & Physical [facility] Card[facility] Rehab [address] [place] [address] CR - History Physical MR#: [id number] Acct: [id number] Name: THUY KIM Rep #: [id number] : 1965 59 From: Herve NOEL, RVT PCP: Dr. Alverto Ceja, DO DOS: 07/29/24 CR - History Physical General Arrival date:: 07/29/24 Arrival time:: 13:05 Date of Referral:: 07/17/24 Date of CR Evaluation:: 07/29/24 Referring Physician: Dr. Richmond Primary Diagnosis: heart valve replacement History of Present Cardiac Event Onset Date Heart valve replacement or repair:: Yes (07/17/24 onset) Medications Ambulatory Orders ???Medication ???Instructions ???Recorded acetaminophen 500 mg tablet 500 mg PO Q6H PRN 07/17/24 (Tylenol Extra Strength) aspirin 81 mg tablet,delayed 81 mg PO QDAY 07/17/24 release (Adult Aspirin Regimen) levothyroxine 75 mcg tablet 75 mcg PO QDAY 07/17/24 magnesium oxide 400 mg PO BID 07/17/24 metoprolol tartrate 25 mg tablet 12.5 mg PO BID 07/17/24 Allergies Allergies gluten Allergy (Severe, Verified 07/17/24 15:07) GI upset pork derived (porcine) Allergy (Severe, Verified 07/17/24 15:07) palpitations tree nut (tree nuts) Allergy (Severe, Verified 07/17/24 15:07) palpitations Iodinated Contrast Media Allergy (Intermediate, Verified 03/08/23 12:55) convulsions lactose Adverse Reaction (Severe, Verified 07/17/24 15:07) GI upset prednisone Adverse Reaction (Intermediate, Verified 07/17/24 15:07) psychosis if on for long-term Sleep Disorder Evaluation Hx of Sleep Apnea: No Do you snore loudly (louder than talking or can be heard through closed doors)?: No Do you often feel tired/ fatigued/ sleepy during daytime?: No Has anyone observed you stop breathing during sleep?: No History of Hypertension (for STOP score): No STOP Results: Negative Advanced Directives Advanced Directives Power of Cut Out Machine Operator: Yes Living Will: Yes Advance Directives Information Provided: Yes Advance Directives on File: No DNR Order?:: No Past Medical History Covid-19 Screening Physicial Symptoms Other Clinical Concerns Exposure Risk Pertinent Comorbidities Has a serious heart condition:: Yes Past Medical Illness Past Medical History (Updated 07/17/24 @ 15:04 by Alethea Ray RN) Celiac disease K90.0 Bradycardia R00.1 Palpitations R00.2 Gluten intolerance K90.41 Lactose intolerance E73.9 Weight loss, unintentional R63.4 Acute constipation K59.00 Muscle weakness M62.81 Abdominal pain R10.9 Myalgia M79.10 Fatigue R53.83 Aortic stenosis I35.0 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 Mariana's thyroiditis E06.3 Hypothyroidism E03.9 Cardiac murmur R01.1 Anxiety F41.9 Past Surgical History Past Surgical History (Updated 07/17/24 @ 15:04 by Alethea Ray RN) S/P AVR (07/04/24) Z95.2 BAV replace with 25# Inspiris History of medial meniscus repair of right knee Z98.890 History of appendectomy Z90.49 Family History Summary Family History (Updated 07/17/24 @ 15:09 by Alethea Ray RN) Father Asthma Heart disease Hypertension Thyroid disorder Diabetes Kidney disease Sister Cancer skin Uncle Throat cancer Mother Heart disease Emphysema lung Social History Smoking History Smoking Status: Former smoker Years Smokin Packs Smoked per Day: 1 (stopped 40 years ago) Alcohol Use Alcohol Usage: No Substance Abuse Hx Substance Use: No Occupation Occupation (List type of work in comments):: Employed Hours worked per day:: 8 Hobbies, Recreation, Social Activities Hobbies: Walking Recreational Activities: I am able to engage in all my recreational activities Social Environment Status Marital Status: Current Living Arrangements Living Environment:: Family Children How many children do you have?: 1 Do any of your children live nearby?: Yes Safety Do you feel safe in your surroundings?: Yes Assistance Do you need any assistance at home?: no Review of Systems Review of Systems Hints Review of Present Symptoms: Reports Shortness of Breath with Exertion, Operative Discomfort, Dizziness/Lightheadedness , Fatigue, Appetite - Normal, Appetite - Special Diet and Sleep - Normal; Denies Shortness of Breath at Rest, PVD, Angina, Wound Healing, Heart Arrhythmia/Irregularities or Sexual Changes Pain Is Patient Pain Free?: No Pain Location: neck and back Pain Level: 10 Risk Factor Assessment Chief Complaint Chief Complaint: heart valve replacement Vital Signs Pulse Ox: 96 Blood Pressure: 110/64 Pulse Pulse Rate: 53 Pulse Rhythm: Regular Hypertension Blood Pressure Sitting - Left Arm: 110/64 Stress Stress: Home/Famil (more content not included)... Normal [facility] Basic metabolic 2000 panelon 07-22-2024 Anion gap [Moles/Vol] 11 mmol/L Normal 8-15 [facility] Comment on above: Order Comment: Speci men Type: BLOOD SPECIMENOrdering Facility: [facility] Address: [address] [place] [address] Performed By: #### 2 4321-2 ####[facility] [id number] [place] [address] [place] Calcium [Mass/Vol] 9.0 mg/dL Normal 8.5-10.2 [facility] Comment on above: Order Comment: Speci men Type: BLOOD SPECIMENOrdering Facility: [facility] Address: [address] [place] [address] Performed By: #### 2 4321-2 ####[facility] [id number] [place] [address] [place] Chloride [Moles/Vol] 107 mmol/L Normal 98-107 [facility] Comment on above: Order Comment: Speci men Type: BLOOD SPECIMENOrdering Facility: [facility] Address: [address] [place] [address] Performed By: #### 2 4321-2 ####[facility] [id number] [place] [address] [place] CO2 [Moles/Vol] 21 mmol/L Low 22-30 [facility] Comment on above: Order Comment: Speci men Type: BLOOD SPECIMENOrdering Facility: [facility] Address: [address] [place] [address] Performed By: #### 2 4321-2 ####[facility] ROSSYMILLSNCReshma [id number] [place] [address] [place] Creatinine [Mass/Vol] 0.95 mg/dL Normal 0.73-1.22 [facility] Comment on above: Order Comment: Speci men Type: BLOOD SPECIMENOrdering Facility: [facility] Address: [address] [place] [address] Performed By: #### 2 4321-2 ####[facility] [id number] [place] [address] [place] Creatinine and Glomerular filtration rate.predicted panel (S/P/Bld) 91 mL/min/1.73m??? Normal >=60 [facility] Comment on above: Order Comment: Speci men Type: BLOOD SPECIMENOrdering Facility: [facility] Address: [address] [place] [address] Result Comment: Lorenza mated Glomerular Filtration Rate (eGFR) is calculated using the 2020 CKD-EPI creatinine equation. This equation utilizes serum creatinine, sex, and age as parameters. The creatinine assay has traceable calibration to isotope dilution-mass spectrometry. Refer to KDIGO guidelines for clinical interpretation. In patients with unstable renal function, e.g. those with acute kidney injury, the eGFR may not accurately reflect actual GFR. Performed By: #### 2 4321-2 ####[facility] [id number] [place] [address] [place] Glucose [Mass/Vol] 106 mg/dL High 74-99 [facility] Comment on above: Order Comment: Speci men Type: BLOOD SPECIMENOrdering Facility: [facility] Address: [address] [place] [address] Result Comment: The [place] Diabetes Association (ADA) provides guidance for cutoff values for fasting glucose and random glucose. The ADA defines fasting as no caloric intake for at least 8 hours. Fasting plasma glucose results between 100 to 125 mg/dL indicate increased risk for diabetes (prediabetes).Fasting plasma glucose results greater than or equal to 126 mg/dL meet the criteria for diagnosis of diabetes. In the absence of unequivocal hyperglycemia, results should be confirmed by repeat testing. In a patient with classic symptoms of hyperglycemia or hyperglycemic crisis, random plasma glucose results greater than or equal to 200 mg/dL meet the criteria for diagnosis of diabetes.Reference: Standards of Medical Care in Diabetes 2016, [place] Diabetes Association. Diabetes Care. 2016.39(Suppl 1). Performed By: #### 2 4321-2 ####[facility] MILLTOWNCLIA [id number] [place] [address] [place] Potassium [Moles/Vol] 4.4 mmol/L Normal 3.7-5.1 [facility] Comment on above: Order Comment: Speci men Type: BLOOD SPECIMENOrdering Facility: [facility] Address: [address] [place] [address] Performed By: #### 2 4321-2 ####[facility] [id number] [place] [address] [place] Sodium [Moles/Vol] 139 mmol/L Normal 136-144 [facility] Comment on above: Order Comment: Speci men Type: BLOOD SPECIMENOrdering Facility: [facility] Address: [address] [place] [address] Performed By: #### 2 4321-2 ####[facility] MILLTOWNCLIA [id number] [place] [address] [place] Urea nitrogen [Mass/Vol] 21 mg/dL Normal 9-24 [facility] Comment on above: Order Comment: Speci men Type: BLOOD SPECIMENOrdering Facility: [facility] Address: [address] [place] [address] Performed By: #### 2 4321-2 ####[facility] [id number] [place] [address] [place] CBC panel Auto (Bld)on 07-22 Erythrocyte distribution width (RBC) [Ratio] 12.1 % Normal 11.5-15.0 [facility] Comment on above: Order Comment: Speci men Type: BLOOD SPECIMENOrdering Facility: [facility] Address: [address] [place] [address] Performed By: #### 5 8410-2 ####[facility] [id number] [address] [place] Hematocrit (Bld) [Volume fraction] 39.7 % Normal 39.0-51.0 [facility] Comment on above: Order Comment: Speci men Type: BLOOD SPECIMENOrdering Facility: [facility] Address: [address] [place] [address] Performed By: #### 5 8410-2 ####[facility] [id number] [address] [place] Hemoglobin (Bld) [Mass/Vol] 13.4 g/dL Normal 13.0-17.0 [facility] Comment on above: Order Comment: Speci men Type: BLOOD SPECIMENOrdering Facility: [facility] Address: [address] [place] [address] Performed By: #### 5 8410-2 ####[facility] [id number] [place] [address] [place] MCH (RBC) [Entitic mass] 29.6 pg Normal 26.0-34.0 [facility] Comment on above: Order Comment: Speci men Type: BLOOD SPECIMENOrdering Facility: [facility] Address: [address] [place] [address] Performed By: #### 5 8410-2 ####[facility] [id number] [place] [address] [place] MCHC (RBC) [Mass/Vol] 33.8 g/dL Normal 30.5-36.0 [facility] Comment on above: Order Comment: Speci men Type: BLOOD SPECIMENOrdering Facility: [facility] Address: [address] [place] [address] Performed By: #### 5 8410-2 ####[facility] [id number] [place] [address] [place] MCV (RBC) [Entitic vol] 87.8 fL Normal 80.0-100.0 [facility] Comment on above: Order Comment: Speci men Type: BLOOD SPECIMENOrdering Facility: [facility] Address: [address] [place] [address] Performed By: #### 5 8410-2 ####[facility] [id number] [place] [address] [place] Nucleated RBC (Bld) [#/Vol] 10*3/uL Normal <0.01 [facility] Comment on above: Order Comment: Speci men Type: BLOOD SPECIMENOrdering Facility: [facility] Address: [address] [place] [address] Performed By: #### 5 8410-2 ####[facility] [id number] [place] [address] [place] Platelet mean volume (Bld) [Entitic vol] 10.3 fL Normal 9.0-12.7 [facility] Comment on above: Order Comment: Speci men Type: BLOOD SPECIMENOrdering Facility: [facility] Address: [address] [place], [place] [address] Performed By: #### 5 8410-2 ####[facility] [id number] [place] [address] [place] Platelets (Bld) [#/Vol] 247 10*3/uL Normal 150-400 [facility] Comment on above: Order Comment: Speci men Type: BLOOD SPECIMENOrdering Facility: [facility] Address: [address] [place] [address] Performed By: #### 5 8410-2 ####[facility] [id number] [place] [address] [place] RBC (Bld) [#/Vol] 4.52 10*6/uL Normal 4.20-6.00 [facility] Comment on above: Order Comment: Speci men Type: BLOOD SPECIMENOrdering Facility: [facility] Address: [address] [place] [address] Performed By: #### 5 8410-2 ####[facility] [id number] [place] [address] [place] WBC (Bld) [#/Vol] 4.91 10*3/uL Normal 3.70-11.00 [facility] Comment on above: Order Comment: Speci men Type: BLOOD SPECIMENOrdering Facility: [facility] Address: [address] [place] [address] Performed By: #### 5 8410-2 ####[facility] [id number] [place] [address] [place] Lipid 1996 panelon 4 Cholesterol [Mass/Vol] 188 mg/dL Normal <200 [facility] Comment on above: Order Comment: Speci men Type: BLOOD SPECIMENOrdering Facility: [facility] Address: [address] [place] [address] Result Comment: <200 mg/dL, Desirable 200-239 mg/dL, Borderline high>239 mg/dL, High Performed By: #### 3 016-3, 3024-7, 3053-6 ####[facility] LABCLIA [id number] [place] [address] [place]#### 58423-1 ####[facility] LABCLIA [id number] [address] [id number] [place] [address] [place] Cholesterol in HDL [Mass/Vol] 53 mg/dL Normal >39 [facility] Comment on above: Order Comment: Speci men Type: BLOOD SPECIMENOrdering Facility: [facility] Address: [address] [place] [address] Result Comment: 40-5 9 mg/dL, Acceptable>59 mg/dL, High: Negative risk factor for coronary heart disease<40 mg/dL, Low: Positive risk factor for coronary heart disease Performed By: #### 3 016-3, 7, 3053-04 ####[facility] LABCLIA [id number] [place] [address] [place]#### 07527-2 ####[facility] LABCLIA [id number] [address] STATES OF [facility] [id number] [place] [address] [place] Cholesterol in LDL [Mass/Vol] 113 mg/dL High <100 [facility] Comment on above: Order Comment: Speci men Type: BLOOD SPECIMENOrdering Facility: [facility] Address: [address] [place] [address] Result Comment: <100 mg/dL, Optimal 100-129 mg/dL, Near optimal/above optimal 130-159 mg/dL, Borderline high 160-189 mg/dL, High>189 mg/dL, Very highSecondary prevention optimal LDL Cholesterol levels are recommended to be < 70 mg/dL Performed By: #### 3 016-3, 3023-7, 6 ####[facility] LABCLIA [id number] [place] [address] [place]#### 34544-5 ####[facility] LABCLIA [id number] [address] [id number] [place] [address] [place] Cholesterol in LDL/Cholesterol in HDL [Mass ratio] 2.13 {ratio} Normal <2.54 [facility] Comment on above: Order Comment: Speci men Type: BLOOD SPECIMENOrdering Facility: [facility] Address: [facility] [place] [address] Result Comment: Refe kristopherce:1. National Cholesterol Education Program ATP III Guideline At-A-Glance Quick Desk Reference: National Heart, Lung, and Blood [place]. National Institutes of Health. 2001: NIH Publication No. 01-3305.2. An International Atherosclerosis Society position paper: global recommendations for the management of dyslipidemia: executive summary, Atherosclerosis. 2014: 232(2):410-413. Performed By: #### 3 016-3, 7, 3053-04 ####[facility] LABCLIA [id number] [place] [address] [place]#### 83253-5 ####[facility] LABCLIA [id number] [address] [id number] [place] [address] [place] Cholesterol in VLDL [Mass/Vol] 22 mg/dL Normal <30 [facility] Comment on above: Order Comment: Speci men Type: BLOOD SPECIMENOrdering Facility: [facility] Address: [address] [place] [address] Performed By: #### 3 016-3, 7, 6 ####[facility] LABCLIA [id number] [place] [address] [place]#### 73853-8 ####[facility] LABCLIA [id number] [address] [id number] [place] [address] [place] Cholesterol non HDL [Mass/Vol] 135 mg/dL High <130 [facility] Comment on above: Order Comment: Speci men Type: BLOOD SPECIMENOrdering Facility: [facility] Address: [address] [place] [address] Result Comment: <130 mg/dL, Optimal 130-159 mg/dL, Near optimal/above optimal 160-189 mg/dL, Borderline high 190-219 mg/dL, High>219 mg/dL, Very highSecondary prevention optimal non HDL Cholesterol levels are recommended to be <100 mg/dL Performed By: #### 3 016-3, 3023-7, 3052-6 ####[facility] LABCLIA [id number] [place] [address] [place]#### 24671-2 ####[facility] LABCLIA [id number] [address] [id number] [place] [address] [place] Cholesterol.total/Cholest asha in HDL [Mass ratio] 3.55 {ratio} Normal <5.10 [facility] Comment on above: Order Comment: Speci men Type: BLOOD SPECIMENOrdering Facility: [facility] Address: [address] [place] [address] Performed By: #### 3 016-3, 3023-7, 6 ####[facility] LABCLIA [id number] [place] [address] [place]#### 86875-3 ####[facility] LABCLIA [id number] [address] [id number] [place] [address] [place] FASTING TIME 11 hrs Normal [facility] Comment on above: Order Comment: Speci men Type: BLOOD SPECIMENOrdering Facility: [facility] Address: [address] [place] [address] Performed By: #### 3 016-3, 3024-7, 3053-6 ####[facility] LABCLIA [id number] [place] [address] [place]#### 65188-4 ####[facility] LABCLIA [id number] [place] [address] [place] [facility] [id number] [place] [address] [place] Triglyceride [Mass/Vol] 108 mg/dL Normal <150 [facility] Comment on above: Order Comment: Speci men Type: BLOOD SPECIMENOrdering Facility: [facility] Address: [address] [place] [address] Result Comment: <150 mg/dL, Normal 150-199 mg/dL, Borderline high 200-499 mg/dL, High>499 mg/dL, Very high Performed By: #### 3 016-3, 3024-7, 3053-6 ####[facility] LABCLIA [id number] [place] [address] [place]#### 50235-2 ####[facility] LABCLIA [id number] [address] STATES OF [facility] [id number] [place] [address] [place] T3 SerPl-mCncon 07-22-2024 T3 [Mass/Vol] 92 ng/dL Normal 79-165 [facility] Comment on above: Order Comment: Speci men Type: BLOOD SPECIMENOrdering Facility: [facility] Address: [address] [place] [address] Performed By: #### 3 016-3, 3024-7, 3053-6 ####[facility] LABCLIA [id number] [place] [address] [place]#### 49345-4 ####[facility] LABCLIA [id number] [address] [id number] [place] [address] [place] T4 Free SerPl-mCncon 024 Free T4 [Mass/Vol] 1.6 ng/dL Normal 0.9-1.7 [facility] Comment on above: Order Comment: Speci men Type: BLOOD SPECIMENOrdering Facility: [facility] Address: [address] [place] [address] Performed By: #### 3 016-3, 3024-7, 3056 ####[facility] LABCLIA [id number] [place] [address] [place]#### 66787-1 ####[facility] LABCLIA [id number] [address] [id number] [place] [address] [place] THYROGLOBULIN ANTIBODYon Thyroglobulin Ab Qn [IU]/mL Normal <4.0 [facility] Comment on above: Order Comment: Speci men Type: BLOOD SPECIMENOrdering Facility: [facility] Address: [address] [place] [address] Result Comment: The Thyroglobulin Antibody test was performed using the [employer] DXI paramagnetic particle chemiluminescent immunoassay method. Results obtained with different assay methods or kits cannot be used interchangeably. Performed By: #### T ABRAHAM ####[facility] LABCLIA [id number] [place] [address] [place] THYROID PEROXIDASE ANTIBODYo n 07-22-2024 TPO Ab Qn 137.9 [IU]/mL High <5.6 [facility] Comment on above: Order Comment: Speci men Type: BLOOD SPECIMENOrdering Facility: [facility] Address: [address] [place] [address] Result Comment: Thyr oid Peroxidase Antibody test is used as an aid in diagnosis of autoimmune thyroid disease. Clinical correlation is required. Performed By: #### M ICRO ####[facility] LABCLIA [id number] [place] [address] [place] TSH SerPl-aCncon 07-22-2024 TSH Qn 2.930 m[IU]/L Normal 0.270-4.20 0 [facility] Comment on above: Order Comment: Speci men Type: BLOOD SPECIMENOrdering Facility: [facility] Address: [address] [place] [address] Performed By: #### 3 016-3, 3024-7, 3053-6 ####[facility] LABCLIA [id number] [place] [address] [place]#### 28713-2 ####[facility] LABCLIA [id number] [place] [address] [place] [facility] [id number] [place] [address] [place] CNPNon 07-18-2024 CNPN Normal [facility] 12 Lead EKG performed by [facility] on 07-17-2024 12 [place] [address] 12 Lead EKG performed by [facility] 07/17/24 1127 MR#: [id number] Acct: [id number] Name: THUY KIM Rep #: [id number] : 1965 59 From: Dmitry Richmond MD Attending Dr: Dr. Dmitry Richmond MD Status: DEP Reshma REEDER Ordering Dr: Dmitry Richmond MD Date: 07/17/24 [place] [facility] [place] Sex: M C Admitted: BMS/12 Lead EKG performed by [facility] ECG Report Interpretation -Sinus Bradycardia -Old anterior infarct. ABNORMAL Electronically signed on 07/18/2024 at 15:59 by Dmitry Richmondwood Software Version [id number] 07/18/24 1602 Date Dmitry Richmond MD CC: Dr. Alverto Ceja, Date Dictated: 07/17/241126 Date Transcribed: 07/17/241126 Blood Bank Attendant: [place] Signed Normal [facility] Basic Metabolic Profile (BMP )on 07-17-2024 BUN/CRE 22.2 RATIO High 10-20 [facility] Comment on above: Performed By: #### L 500.2500, L501.5200 #### [facility] [address] [place], [address] CA,Total 9.3 mg/dL Normal 8.5-10.1 [facility] Comment on above: Performed By: #### L 500.2500, L501.5200 #### [facility] [address] [place], [address] Chloride [Moles/Vol] 107 mmol/L Normal 98-107 [facility] Comment on above: Performed By: #### L 500.2500, L501.5200 #### [facility] [address] [place], [address] CO2 [Moles/Vol] 23.0 mmol/L Normal 21.0-32.0 [facility] Comment on above: Performed By: #### L 500.2500, L501.5200 #### [facility] [address] [place], [address] Creatinine [Mass/Vol] 0.90 mg/dL Normal 0.70-1.30 [facility] Comment on above: Result Comment: The validity of the calculated GFR GFRAA in patients over 70 years has not been determined. Clinical correlation is essential. Performed By: #### L 500.2500, L501.5200 #### [facility] [address] [place], [address] EST GFR - AA 110 mL/min Normal >60 [facility] Comment on above: Result Comment: Afri can [place] GFR Calc Performed By: #### L 500.2500, L501.5200 #### [facility] [address] [place], [address] GAP 8 Normal 5-15 [facility] Comment on above: Performed By: #### L 500.2500, L501.5200 #### [facility] [address] [place], [address] GFR/1.73 sq M.predicted among non-blacks MDRD (S/P/Bld) [Vol rate/Area] 91 mL/min/{1.73_m2} Normal >60 [facility] Comment on above: Result Comment: Non- GFR Calc Performed By: #### L 500.2500, L501.5200 #### [facility] [address] [place], [address] Glucose [Mass/Vol] 115 mg/dL High 74-106 [facility] Comment on above: Result Comment: Fast ing Glucose result from 100 to 125 mg/dL suggests IMPAIRED HOMEOSTASIS per A.D.A. criteria. Performed By: #### L 500.2500, L501.5200 #### [facility] [address] [place], [address] Potassium [Moles/Vol] 4.1 mmol/L Normal 3.5-5.1 [facility] Comment on above: Performed By: #### L 500.2500, L501.5200 #### [facility] [address] [place], [address] Sodium [Moles/Vol] 138 mmol/L Normal 136-145 [facility] Comment on above: Performed By: #### L 500.2500, L501.5200 #### [facility] [address] [place], [address] Urea nitrogen [Mass/Vol] 20 mg/dL High 7-18 [facility] Comment on above: Performed By: #### L 500.2500, L501.5200 #### [facility] [address] [place], [address] CNPNon 07-17-2024 CNPN Normal [facility] Cardiology Visit Reporton Cardiology Visit Report [facility] [address] [place], [place] [address] OFFICE VISIT Date of Service: 07/17/24 MR#: [id number] Acct: [id number] Name: THUY KIM Rep #: [id number] : 1965 Provider: Dr. Dmitry Richmond MD Age/Sex: 59/M [place] [facility] Status: Signed HPI HPI History of Present Illness Details: Pleasant 59-year-old man with a history of bicuspid aortic valve who was being followed by the primary care physician with serial EKGs. He eventually started having symptoms of shortness of breath and underwent an echocardiogram which demonstrated a dilated aortic root measuring 4.1 x 3.3 cm a functional anatomic bicuspid valve with a valve area of 1.6 cm???. He was transferred to the [facility] where he underwent aortic valve replacement with a 25 mm Inspiris valve after he had had a cardiac catheterization which demonstrated minimal coronary disease with a 30% first diagonal LAD stenosis. He did well postoperatively and had a postoperative echocardiogram demonstrated ejection fraction of 54% ???5 at peak gradient of 20 mmHg across the aortic valve and a mean gradient of 13 mmHg. He was discharged home and says that since has been discharged home he has felt tired fatigued mildly dizzy and near syncopal. His blood pressures have also been running low. I was asked to see him fairly urgently. His physical exam demonstrates clear lung vuong regular rate and rhythm and no pedal edema his electrocardiogram demonstrates sinus bradycardia with a rate of 50 bpm. 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 Accompanied by: Is patient in pain?: No Allergies Iodinated Contrast Media Allergy (Intermediate, Verified 03/08/23 12:55) convulsions prednisone Adverse Reaction (Intermediate, Verified 07/17/24 11:32) pyschosis Medications ???Medication ???Instructions ???Recorded ???Confirmed ???Type acetaminophen 500 mg tablet 500 mg PO Q6H PRN 07/17/24 07/17/24 History (Tylenol Extra Strength) aspirin 81 mg tablet,delayed 81 mg PO QDAY 07/17/24 07/17/24 History release (Adult Aspirin Regimen) levothyroxine 75 mcg tablet 75 mcg PO QDAY 07/17/24 07/17/24 History magnesium oxide 400 mg PO BID 07/17/24 07/17/24 History metoprolol tartrate 25 mg tablet 12.5 mg PO BID 07/17/24 07/17/24 History Have you fallen in the past year?: No PFSH Medical History Lactose intolerance Weight loss, unintentional Acute constipation Muscle weakness Abdominal pain Myalgia Fatigue Aortic stenosis Migraine-cluster headache syndrome Bicuspid aortic valve Aortic root dilation Former tobacco use Aortic aneurysm Mariana's thyroiditis Hypothyroidism Cardiac murmur Anxiety Surgical History (Updated 07/17/24 @ 12:[address] Dmitry Richmond MD) S/P AVR (07/04/24) History of medial meniscus repair of right knee History of appendectomy Family History Father Asthma Heart disease Hypertension Thyroid disorder Sister Cancer skin Uncle Throat cancer Mother Heart disease Emphysema lung Social History household members: spouse Smoking Status: Former smoker how long ago did patient quit smoking: Smoked 1 ppd x 5 years, quit 1979. alcohol intake: current alcohol intake frequency: a few times a month substance use type: does not use ROS Const Const: Positive for fatigue and weakness; Negative for headache(s), daytime sleepiness or difficulty sleeping ENT ENT: Negative for headache(s), dizziness or Nosebleed/epistaxis Cardio Chest Pain: No Palpitations: Yes Edema: None Resp Respiratory: Negative for SOB with activity, SOB at rest, SOB orthopnea SOB lying down or Cough GI GI: Negative nausea, vomiting or heartburn Neuro Neuro: Positive for weakness; Negative for dizziness, lightheadedness, near syncope or headache(s) Endo Endo: Positive for fatigue Cardiology Exam Const Appearance: cooperative, healthy appearing, no acute distress, well developed and well groomed Nutritional Appearance: average body habitus and well nourished Orientation: alert, awake and oriented x3 Head Head: normal to inspection, normocephalic and atraumatic Ears: hearing grossly normal bilaterally and external ears normal Nose: external nose normal, nares normal, nasal mucous membranes and turbinates normal, septum normal and no nasal discharge Face and Sinus: face symmetric Mouth: oral (more content not included)... Normal [facility] Magnesiumon 07-17-2024 Magnesium [Mass/Vol] 2.5 mg/dL Normal 1.6-2.6 [facility] Comment on above: Performed By: #### L 500.2500, L501.5200 #### [facility] [address] [place], [address] CNOVon 07-16-2024 CNOV Normal [facility] CNPNon 07-11-2024 CNPN Normal [facility] ALLIED HEALTHon 07-09-2024 ALLIED HEALTH Normal [facility] CBC panel Auto (Bld)on 07-09 Erythrocyte distribution width (RBC) [Ratio] 12.3 % Normal 11.5-15.0 [facility] Comment on above: Order Comment: Speci men Type: BLOOD SPECIMENOrdering Facility: [facility] Address: [address] [place] [address] Performed By: #### 5 8410-2 ####[facility] [id number] [place] [address] [place] Hematocrit (Bld) [Volume fraction] 36.6 % Low 39.0-51.0 [facility] Comment on above: Order Comment: Speci men Type: BLOOD SPECIMENOrdering Facility: [facility] Address: [address] [place] [address] Performed By: #### 5 8410-2 ####[facility] [id number] [place] [address] [place] Hemoglobin (Bld) [Mass/Vol] 12.6 g/dL Low 13.0-17.0 [facility] Comment on above: Order Comment: Speci men Type: BLOOD SPECIMENOrdering Facility: [facility] Address: [address] [place] [address] Performed By: #### 5 8410-2 ####[facility] [id number] [place] [address] [place] MCH (RBC) [Entitic mass] 31.0 pg Normal 26.0-34.0 [facility] Comment on above: Order Comment: Speci men Type: BLOOD SPECIMENOrdering Facility: [facility] Address: [address] [place] [address] Performed By: #### 5 8410-2 ####[facility] [id number] [place] [address] [place] MCHC (RBC) [Mass/Vol] 34.4 g/dL Normal 30.5-36.0 [facility] Comment on above: Order Comment: Speci men Type: BLOOD SPECIMENOrdering Facility: [facility] Address: [address] [place] [address] Performed By: #### 5 8410-2 ####[facility]CL[facility] [id number] [place] [address] [place] MCV (RBC) [Entitic vol] 89.9 fL Normal 80.0-100.0 [facility] Comment on above: Order Comment: Speci men Type: BLOOD SPECIMENOrdering Facility: [facility] Address: [address] [place] [address] Performed By: #### 5 8410-2 ####[facility] [id number] [place] [address] [place] Nucleated RBC (Bld) [#/Vol] 10*3/uL Normal <0.01 [facility] Comment on above: Order Comment: Speci men Type: BLOOD SPECIMENOrdering Facility: [facility] Address: [address] [place] [address] Performed By: #### 5 8410-2 ####[facility] [id number] [place] [address] [place] Platelet mean volume (Bld) [Entitic vol] 11.9 fL Normal 9.0-12.7 [facility] Comment on above: Order Comment: Speci men Type: BLOOD SPECIMENOrdering Facility: [facility] Address: [address] [place] [address] Performed By: #### 5 8410-2 ####[facility] [id number] [place] [address] [place] Platelets (Bld) [#/Vol] 88 10*3/uL Low 150-400 [facility] Comment on above: Order Comment: Speci men Type: BLOOD SPECIMENOrdering Facility: [facility] Address: [address] [place] [address] Performed By: #### 5 8410-2 ####[facility] [id number] [place] [address] [place] RBC (Bld) [#/Vol] 4.07 10*6/uL Low 4.20-6.00 [facility] Comment on above: Order Comment: Speci men Type: BLOOD SPECIMENOrdering Facility: [facility] Address: [address] [place] [address] Performed By: #### 5 8410-2 ####[facility]CL[facility] [id number] [place] [address] [place] WBC (Bld) [#/Vol] 5.53 10*3/uL Normal 3.70-11.00 [facility] Comment on above: Order Comment: Speci men Type: BLOOD SPECIMENOrdering Facility: [facility] Address: [address] [place] [address] Performed By: #### 5 8410-2 ####[facility]CL[facility] [id number] [place] [address] [place] Comprehensive metabolic 2000 panelon 07-09-2024 Albumin [Mass/Vol] 3.3 g/dL Low 3.9-4.9 [facility] Comment on above: Order Comment: Speci men Type: BLOOD SPECIMENOrdering Facility: [facility] Address: [address] [place] [address] Performed By: #### 2 4323-8 ####[facility]CL[facility] [id number] [place] [address] [place] ALP [Catalytic activity/Vol] 53 U/L Normal 38-113 [facility] Comment on above: Order Comment: Speci men Type: BLOOD SPECIMENOrdering Facility: [facility] Address: [address] [place] [address] Performed By: #### 2 4323-8 ####[facility]CL[facility] [id number] [place] [address] [place] ALT [Catalytic activity/Vol] 20 U/L Normal 10-54 [facility] Comment on above: Order Comment: Speci men Type: BLOOD SPECIMENOrdering Facility: [facility] Address: [address] [place] [address] Performed By: #### 2 4323-8 ####[facility]CL[facility] [id number] [place] [address] [place] Anion gap [Moles/Vol] 11 mmol/L Normal 8-15 [facility] Comment on above: Order Comment: Speci men Type: BLOOD SPECIMENOrdering Facility: [facility] Address: [address] [place] [address] Performed By: #### 2 4323-8 ####[facility]CL[facility] [id number] [place] [address] [place] AST [Catalytic activity/Vol] 25 U/L Normal 14-40 [facility] Comment on above: Order Comment: Speci men Type: BLOOD SPECIMENOrdering Facility: [facility] Address: [address] [place] [address] Performed By: #### 2 4323-8 ####[facility]CL[facility] [id number] [place] [address] [place] Bilirubin [Mass/Vol] 0.7 mg/dL Normal 0.2-1.3 [facility] Comment on above: Order Comment: Speci men Type: BLOOD SPECIMENOrdering Facility: [facility] Address: [address] [place] [address] Performed By: #### 2 4323-8 ####[facility]CL[facility] [id number] [place] [address] [place] Calcium [Mass/Vol] 8.3 mg/dL Low 8.5-10.2 [facility] Comment on above: Order Comment: Speci men Type: BLOOD SPECIMENOrdering Facility: [facility] Address: [address] [place] [address] Performed By: #### 2 4323-8 ####[facility]CLIA [id number] [place] [address] [place] Chloride [Moles/Vol] 103 mmol/L Normal 98-107 [facility] Comment on above: Order Comment: Speci men Type: BLOOD SPECIMENOrdering Facility: [facility] Address: [address] [place] [address] Performed By: #### 2 4323-8 ####[facility]CL[facility] [id number] [place] [address] [place] CO2 [Moles/Vol] 24 mmol/L Normal 22-30 [facility] Comment on above: Order Comment: Speci men Type: BLOOD SPECIMENOrdering Facility: [facility] Address: [address] [place] [address] Performed By: #### 2 4323-8 ####[facility]CL[facility] [id number] [place] [address] [place] Creatinine [Mass/Vol] 0.97 mg/dL Normal 0.73-1.22 [facility] Comment on above: Order Comment: Speci men Type: BLOOD SPECIMENOrdering Facility: [facility] Address: [address] [place] [address] Performed By: #### 2 4323-8 ####[facility]CLIA [id number] [address] [place] Creatinine and Glomerular filtration rate.predicted panel (S/P/Bld) 89 mL/min/1.73m??? Normal >=60 [facility] Comment on above: Order Comment: Speci men Type: BLOOD SPECIMENOrdering Facility: [facility] Address: [address] [place] [address] Result Comment: Lorenza mated Glomerular Filtration Rate (eGFR) is calculated using the 2020 CKD-EPI creatinine equation. This equation utilizes serum creatinine, sex, and age as parameters. The creatinine assay has traceable calibration to isotope dilution-mass spectrometry. Refer to KDIGO guidelines for clinical interpretation. In patients with unstable renal function, e.g. those with acute kidney injury, the eGFR may not accurately reflect actual GFR. Performed By: #### 2 4323-8 ####[facility] [id number] [place] [address] [place] Glucose [Mass/Vol] 104 mg/dL High 74-99 [facility] Comment on above: Order Comment: Speci men Type: BLOOD SPECIMENOrdering Facility: [facility] Address: [address] [place] [address] Result Comment: The [place] [employer] (ADA) provides guidance for cutoff values for fasting glucose and random glucose. The ADA defines fasting as no caloric intake for at least 8 hours. Fasting plasma glucose results between 100 to 125 mg/dL indicate increased risk for diabetes (prediabetes).Fasting plasma glucose results greater than or equal to 126 mg/dL meet the criteria for diagnosis of diabetes. In the absence of unequivocal hyperglycemia, results should be confirmed by repeat testing. In a patient with classic symptoms of hyperglycemia or hyperglycemic crisis, random plasma glucose results greater than or equal to 200 mg/dL meet the criteria for diagnosis of diabetes.Reference: Standards of Medical Care in Diabetes 2016, [place] [employer]. Diabetes Care. 2016.39(Suppl 1). Performed By: #### 2 4323-8 ####[facility] [id number] [place] [address] [place] Potassium [Moles/Vol] 4.0 mmol/L Normal 3.7-5.1 [facility] Comment on above: Order Comment: Speci men Type: BLOOD SPECIMENOrdering Facility: [facility] Address: [address] [place] [address] Performed By: #### 2 4323-8 ####[facility] [id number] [place] [address] [place] Protein [Mass/Vol] 5.7 g/dL Low 6.3-8.0 [facility] Comment on above: Order Comment: Speci men Type: BLOOD SPECIMENOrdering Facility: [facility] Address: [address] [place] [address] Performed By: #### 2 4323-8 ####[facility]CLIA [id number] [place] [address] [place] Sodium [Moles/Vol] 138 mmol/L Normal 136-144 [facility] Comment on above: Order Comment: Speci men Type: BLOOD SPECIMENOrdering Facility: [facility] Address: [address] [place] [address] Performed By: #### 2 4323-8 ####[facility]CL[facility] [id number] [place] [address] [place] Urea nitrogen [Mass/Vol] 15 mg/dL Normal 9-24 [facility] Comment on above: Order Comment: Speci men Type: BLOOD SPECIMENOrdering Facility: [facility] Address: [address] [place] [address] Performed By: #### 2 4323-8 ####[facility]CL[facility] [id number] [place] [address] [place] CBC panel Auto (Bld)on 07-08 Erythrocyte distribution width (RBC) [Ratio] 12.0 % Normal 11.5-15.0 [facility] Comment on above: Order Comment: Speci men Type: BLOOD SPECIMENOrdering Facility: [facility] Address: [address] [place] [address] Performed By: #### 5 8410-2 ####[facility]CL[facility] [id number] [place] [address] [place] Hematocrit (Bld) [Volume fraction] 34.9 % Low 39.0-51.0 [facility] Comment on above: Order Comment: Speci men Type: BLOOD SPECIMENOrdering Facility: [facility] Address: [address] [place] [address] Performed By: #### 5 8410-2 ####[facility]CL[facility] [id number] [place] [address] [place] Hemoglobin (Bld) [Mass/Vol] 12.0 g/dL Low 13.0-17.0 [facility] Comment on above: Order Comment: Speci men Type: BLOOD SPECIMENOrdering Facility: [facility] Address: [address] [place] [address] Performed By: #### 5 8410-2 ####[facility] [id number] [place] [address] [place] MCH (RBC) [Entitic mass] 30.8 pg Normal 26.0-34.0 [facility] Comment on above: Order Comment: Speci men Type: BLOOD SPECIMENOrdering Facility: [facility] Address: [address] [place] [address] Performed By: #### 5 8410-2 ####[facility] [id number] [place] [address] [place] MCHC (RBC) [Mass/Vol] 34.4 g/dL Normal 30.5-36.0 [facility] Comment on above: Order Comment: Speci men Type: BLOOD SPECIMENOrdering Facility: [facility] Address: [address] [place] [address] Performed By: #### 5 8410-2 ####[facility] [id number] [place] [address] [place] MCV (RBC) [Entitic vol] 89.5 fL Normal 80.0-100.0 [facility] Comment on above: Order Comment: Speci men Type: BLOOD SPECIMENOrdering Facility: [facility] Address: [address] [place] [address] Performed By: #### 5 8410-2 ####[facility] [id number] [place] [address] [place] Nucleated RBC (Bld) [#/Vol] 10*3/uL Normal <0.01 [facility] Comment on above: Order Comment: Speci men Type: BLOOD SPECIMENOrdering Facility: [facility] Address: [address] [place] [address] Performed By: #### 5 8410-2 ####[facility] [id number] [place] [address] [place] Platelet mean volume (Bld) [Entitic vol] 12.0 fL Normal 9.0-12.7 [facility] Comment on above: Order Comment: Speci men Type: BLOOD SPECIMENOrdering Facility: [facility] Address: [address] [place] [address] Performed By: #### 5 8410-2 ####[facility] [id number] [place] [address] [place] Platelets (Bld) [#/Vol] 72 10*3/uL Low 150-400 [facility] Comment on above: Order Comment: Speci men Type: BLOOD SPECIMENOrdering Facility: [facility] Address: [address] [place] [address] Result Comment: No c lot detected. Performed By: #### 5 8410-2 ####[facility] [id number] [place] [address] [place] RBC (Bld) [#/Vol] 3.90 10*6/uL Low 4.20-6.00 [facility] Comment on above: Order Comment: Speci men Type: BLOOD SPECIMENOrdering Facility: [facility] Address: [address] [place] [address] Performed By: #### 5 8410-2 ####[facility] [id number] [place] [address] [place] WBC (Bld) [#/Vol] 5.74 10*3/uL Normal 3.70-11.00 [facility] Comment on above: Order Comment: Speci men Type: BLOOD SPECIMENOrdering Facility: [facility] Address: [address] [place] [address] Performed By: #### 5 8410-2 ####[facility]CLIA [id number] [address] [address] [place] CNDSon 07-08-2024 CNDS Normal [facility] Comprehensive metabolic 2000 panelon 07-08-2024 Albumin [Mass/Vol] 3.1 g/dL Low 3.9-4.9 [facility] Comment on above: Order Comment: Speci men Type: BLOOD SPECIMENOrdering Facility: [facility] Address: [address] [place] [address] Performed By: #### 2 4323-8 ####[facility]CLIA [id number] [place] [id number] [place] ALP [Catalytic activity/Vol] 46 U/L Normal 38-113 [facility] Comment on above: Order Comment: Speci men Type: BLOOD SPECIMENOrdering Facility: [facility] Address: [address] [place] [address] Performed By: #### 2 4323-8 ####[facility]CL[facility] [id number] [place] [address] [place] ALT [Catalytic activity/Vol] 15 U/L Normal 10-54 [facility] Comment on above: Order Comment: Speci men Type: BLOOD SPECIMENOrdering Facility: [facility] Address: [address] [place], [place] [address] Performed By: #### 2 4323-8 ####[facility]CLIA [id number] [place] [id number] [place] Anion gap [Moles/Vol] 9 mmol/L Normal 8-15 [facility] Comment on above: Order Comment: Speci men Type: BLOOD SPECIMENOrdering Facility: [facility] Address: [address] [place], [place] [address] Performed By: #### 2 4323-8 ####[facility]CL[facility] [id number] [place] [id number] [place] AST [Catalytic activity/Vol] 25 U/L Normal 14-40 [facility] Comment on above: Order Comment: Speci men Type: BLOOD SPECIMENOrdering Facility: [facility] Address: [address] [place] [address] Performed By: #### 2 4323-8 ####[facility]CLIA [id number] [place] [address] [place] Bilirubin [Mass/Vol] 0.7 mg/dL Normal 0.2-1.3 [facility] Comment on above: Order Comment: Speci men Type: BLOOD SPECIMENOrdering Facility: [facility] Address: [address] [place] [address] Performed By: #### 2 4323-8 ####[facility]CLIA [id number] [place] [address] [place] Calcium [Mass/Vol] 8.1 mg/dL Low 8.5-10.2 [facility] Comment on above: Order Comment: Speci men Type: BLOOD SPECIMENOrdering Facility: [facility] Address: [address] [place] [address] Performed By: #### 2 4323-8 ####[facility]CLIA [id number] [place] [address] [place] Chloride [Moles/Vol] 101 mmol/L Normal 98-107 [facility] Comment on above: Order Comment: Speci men Type: BLOOD SPECIMENOrdering Facility: [facility] Address: [address] [place] [address] Performed By: #### 2 4323-8 ####[facility]CLIA [id number] [place] [address] [place] CO2 [Moles/Vol] 28 mmol/L Normal 22-30 [facility] Comment on above: Order Comment: Speci men Type: BLOOD SPECIMENOrdering Facility: [facility] Address: [address] [place] [address] Performed By: #### 2 4323-8 ####[facility]CLIA [id number] [place] [address] [place] Creatinine [Mass/Vol] 0.86 mg/dL Normal 0.73-1.22 [facility] Comment on above: Order Comment: Speci men Type: BLOOD SPECIMENOrdering Facility: [facility] Address: [address] [place] [address] Performed By: #### 2 4323-8 ####[facility] [id number] [place] [address] [place] Creatinine and Glomerular filtration rate.predicted panel (S/P/Bld) 99 mL/min/1.73m??? Normal >=60 [facility] Comment on above: Order Comment: Speci men Type: BLOOD SPECIMENOrdering Facility: [facility] Address: [address] [place] [address] Result Comment: Lorenza mated Glomerular Filtration Rate (eGFR) is calculated using the 2020 CKD-EPI creatinine equation. This equation utilizes serum creatinine, sex, and age as parameters. The creatinine assay has traceable calibration to isotope dilution-mass spectrometry. Refer to KDIGO guidelines for clinical interpretation. In patients with unstable renal function, e.g. those with acute kidney injury, the eGFR may not accurately reflect actual GFR. Performed By: #### 2 4323-8 ####[facility] [id number] [place] [address] [place] Glucose [Mass/Vol] 115 mg/dL High 74-99 [facility] Comment on above: Order Comment: Speci men Type: BLOOD SPECIMENOrdering Facility: [facility] Address: [address] [place] [address] Result Comment: The [place] [employer] (ADA) provides guidance for cutoff values for fasting glucose and random glucose. The ADA defines fasting as no caloric intake for at least 8 hours. Fasting plasma glucose results between 100 to 125 mg/dL indicate increased risk for diabetes (prediabetes).Fasting plasma glucose results greater than or equal to 126 mg/dL meet the criteria for diagnosis of diabetes. In the absence of unequivocal hyperglycemia, results should be confirmed by repeat testing. In a patient with classic symptoms of hyperglycemia or hyperglycemic crisis, random plasma glucose results greater than or equal to 200 mg/dL meet the criteria for diagnosis of diabetes.Reference: Standards of Medical Care in Diabetes 2016, [place] [employer]. Diabetes Care. 2016.39(Suppl 1). Performed By: #### 2 4323-8 ####[facility]CLIA [id number] [place] [address] [place] Potassium [Moles/Vol] 3.8 mmol/L Normal 3.7-5.1 [facility] Comment on above: Order Comment: Speci men Type: BLOOD SPECIMENOrdering Facility: [facility] Address: [address] [place] [address] Performed By: #### 2 4323-8 ####[facility]CL[facility] [id number] [place] [address] [place] Protein [Mass/Vol] 5.3 g/dL Low 6.3-8.0 [facility] Comment on above: Order Comment: Speci men Type: BLOOD SPECIMENOrdering Facility: [facility] Address: [address] [place] [address] Performed By: #### 2 4323-8 ####[facility]CL[facility] [id number] [place] [address] [place] Sodium [Moles/Vol] 138 mmol/L Normal 136-144 [facility] Comment on above: Order Comment: Speci men Type: BLOOD SPECIMENOrdering Facility: [facility] Address: [address] [place] [address] Performed By: #### 2 4323-8 ####[facility]CLIA [id number] [place] [address] [place] Urea nitrogen [Mass/Vol] 12 mg/dL Normal 9-24 [facility] Comment on above: Order Comment: Speci men Type: BLOOD SPECIMENOrdering Facility: [facility] Address: [address] [place] [address] Performed By: #### 2 4323-8 ####[facility] [id number] [place] [address] [place] CBC panel Auto (Bld)on 07-07 Erythrocyte distribution width (RBC) [Ratio] 12.1 % Normal 11.5-15.0 [facility] Comment on above: Order Comment: Speci men Type: BLOOD SPECIMENOrdering Facility: [facility] Address: [address] [place] [address] Performed By: #### 5 8410-2 ####[facility] LABIA [id number] [address] [place] Hematocrit (Bld) [Volume fraction] 40.0 % Normal 39.0-51.0 [facility] Comment on above: Order Comment: Speci men Type: BLOOD SPECIMENOrdering Facility: [facility] Address: [address] [place] [address] Performed By: #### 5 8410-2 ####[facility] [id number] [address] [place] Hemoglobin (Bld) [Mass/Vol] 13.7 g/dL Normal 13.0-17.0 [facility] Comment on above: Order Comment: Speci men Type: BLOOD SPECIMENOrdering Facility: [facility] Address: [address] [place] [address] Performed By: #### 5 8410-2 ####[facility] LABIA [id number] [place] [address] [place] MCH (RBC) [Entitic mass] 31.3 pg Normal 26.0-34.0 [facility] Comment on above: Order Comment: Speci men Type: BLOOD SPECIMENOrdering Facility: [facility] Address: [address] [place] [address] Performed By: #### 5 8410-2 ####[facility] LABCLIA [id number] [address] [place] MCHC (RBC) [Mass/Vol] 34.3 g/dL Normal 30.5-36.0 [facility] Comment on above: Order Comment: Speci men Type: BLOOD SPECIMENOrdering Facility: [facility] Address: [address] [place] [address] Performed By: #### 5 8410-2 ####[facility] LABCLIA [id number] [place] [address] [place] MCV (RBC) [Entitic vol] 91.3 fL Normal 80.0-100.0 [facility] Comment on above: Order Comment: Speci men Type: BLOOD SPECIMENOrdering Facility: [facility] Address: [address] [place] [address] Performed By: #### 5 8410-2 ####[facility] LABIA [id number] [place] [address] [place] Nucleated RBC (Bld) [#/Vol] 10*3/uL Normal <0.01 [facility] Comment on above: Order Comment: Speci men Type: BLOOD SPECIMENOrdering Facility: [facility] Address: [address] [place] [address] Performed By: #### 5 8410-2 ####[facility] LABIA [id number] [place] [address] [place] Platelet mean volume (Bld) [Entitic vol] 12.5 fL Normal 9.0-12.7 [facility] Comment on above: Order Comment: Speci men Type: BLOOD SPECIMENOrdering Facility: [facility] Address: [address] [place] [address] Performed By: #### 5 8410-2 ####[facility] LABIA [id number] [address] [id number] [address] [place] Platelets (Bld) [#/Vol] 66 10*3/uL Low 150-400 C [facility] Comment on above: Order Comment: Speci men Type: BLOOD SPECIMENOrdering Facility: [facility] Address: [address] [place] [address] Performed By: #### 5 8410-2 ####[facility] LABCLIA [id number] [place] [address] [place] RBC (Bld) [#/Vol] 4.38 10*6/uL Normal 4.20-6.00 [facility] Comment on above: Order Comment: Speci men Type: BLOOD SPECIMENOrdering Facility: [facility] Address: [address] [place] [address] Performed By: #### 5 8410-2 ####[facility] LABCLIA [id number] [place] [address] [place] WBC (Bld) [#/Vol] 8.42 10*3/uL Normal 3.70-11.00 [facility] Comment on above: Order Comment: Speci men Type: BLOOD SPECIMENOrdering Facility: [facility] Address: [address] [place] [address] Performed By: #### 5 8410-2 ####[facility] LABCLIA [id number] [place] [address] [place] Comprehensive metabolic 2000 panelon 07-07-2024 Albumin [Mass/Vol] 3.4 g/dL Low 3.9-4.9 [facility] Comment on above: Order Comment: Speci men Type: BLOOD SPECIMENOrdering Facility: [facility] Address: [address] [place] [address] Performed By: #### 2 4323-8 ####[facility] LABCLIA [id number] [place] [address] [place] ALP [Catalytic activity/Vol] 48 U/L Normal 38-113 [facility] Comment on above: Order Comment: Speci men Type: BLOOD SPECIMENOrdering Facility: [facility] Address: [address] [id number] Performed By: #### 2 4323-8 ####[facility] LABCLIA [id number] [place] [address] [place] ALT [Catalytic activity/Vol] 20 U/L Normal 10-54 [facility] Comment on above: Order Comment: Speci men Type: BLOOD SPECIMENOrdering Facility: [facility] Address: [address] [place] [address] Performed By: #### 2 4323-8 ####[facility] LABCLIA [id number] [place] [address] [place] Anion gap [Moles/Vol] 9 mmol/L Normal 8-15 [facility] Comment on above: Order Comment: Speci men Type: BLOOD SPECIMENOrdering Facility: [facility] Address: [address] [place] [address] Performed By: #### 2 4323-8 ####[facility] LABCLIA [id number] [place] [address] [place] AST [Catalytic activity/Vol] 31 U/L Normal 14-40 [facility] Comment on above: Order Comment: Speci men Type: BLOOD SPECIMENOrdering Facility: [facility] Address: [address] [place] [address] Performed By: #### 2 4323-8 ####[facility] LABCLIA [id number] [place] [id number] [place] Bilirubin [Mass/Vol] 1.1 mg/dL Normal 0.2-1.3 [facility] Comment on above: Order Comment: Speci men Type: BLOOD SPECIMENOrdering Facility: [facility] Address: [address] [place], [place] [address] Performed By: #### 2 4323-8 ####[facility] LABCLIA [id number] [place] [address] [place] Calcium [Mass/Vol] 8.3 mg/dL Low 8.5-10.2 [facility] Comment on above: Order Comment: Speci men Type: BLOOD SPECIMENOrdering Facility: [facility] Address: [address] [place] [address] Performed By: #### 2 4323-8 ####[facility] LABCLIA [id number] [place] [address] [place] Chloride [Moles/Vol] 98 mmol/L Normal 98-107 [facility] Comment on above: Order Comment: Speci men Type: BLOOD SPECIMENOrdering Facility: [facility] Address: [address] [place] [address] Performed By: #### 2 4323-8 ####[facility] LABCLIA [id number] [place] [address] [place] CO2 [Moles/Vol] 29 mmol/L Normal 22-30 [facility] Comment on above: Order Comment: Speci men Type: BLOOD SPECIMENOrdering Facility: [facility] Address: [address] [place] [address] Performed By: #### 2 4323-8 ####[facility] LABCLIA [id number] [place] [address] [place] Creatinine [Mass/Vol] 0.94 mg/dL Normal 0.73-1.22 [facility] Comment on above: Order Comment: Speci men Type: BLOOD SPECIMENOrdering Facility: [facility] Address: [address] [place], [place] [address] Performed By: #### 2 4323-8 ####[facility] LABCLIA [id number] [place] [address] [place] Creatinine and Glomerular filtration rate.predicted panel (S/P/Bld) 92 mL/min/1.73m??? Normal >=60 [facility] Comment on above: Order Comment: Spike funez Type: BLOOD SPECIMENOrdering Facility: [facility] Address: [address] [place] [address] Result Comment: Lorenza mated Glomerular Filtration Rate (eGFR) is calculated using the 2020 CKD-EPI creatinine equation. This equation utilizes serum creatinine, sex, and age as parameters. The creatinine assay has traceable calibration to isotope dilution-mass spectrometry. Refer to KDIGO guidelines for clinical interpretation. In patients with unstable renal function, e.g. those with acute kidney injury, the eGFR may not accurately reflect actual GFR. Performed By: #### 2 4323-8 ####[facility] LABIA [id number] [place] [address] [place] Glucose [Mass/Vol] 107 mg/dL High 74-99 [facility] Comment on above: Order Comment: Spike funez Type: BLOOD SPECIMENOrdering Facility: [facility] Address: [address] [place] [address] Result Comment: The [place] [employer] (ADA) provides guidance for cutoff values for fasting glucose and random glucose. The ADA defines fasting as no caloric intake for at least 8 hours. Fasting plasma glucose results between 100 to 125 mg/dL indicate increased risk for diabetes (prediabetes).Fasting plasma glucose results greater than or equal to 126 mg/dL meet the criteria for diagnosis of diabetes. In the absence of unequivocal hyperglycemia, results should be confirmed by repeat testing. In a patient with classic symptoms of hyperglycemia or hyperglycemic crisis, random plasma glucose results greater than or equal to 200 mg/dL meet the criteria for diagnosis of diabetes.Reference: Standards of Medical Care in Diabetes 2016, [place] [employer]. Diabetes Care. 2016.39(Suppl 1). Performed By: #### 2 4323-8 ####[facility] [id number] [place] [address] [place] Potassium [Moles/Vol] 4.0 mmol/L Normal 3.7-5.1 [facility] Comment on above: Order Comment: Spike funez Type: BLOOD SPECIMENOrdering Facility: [facility] Address: [address] [place] [address] Performed By: #### 2 4323-8 ####[facility] LABCLIA [id number] [place] [address] [place] Protein [Mass/Vol] 5.9 g/dL Low 6.3-8.0 [facility] Comment on above: Order Comment: Speci men Type: BLOOD SPECIMENOrdering Facility: [facility] Address: [address] [place] [address] Performed By: #### 2 4323-8 ####[facility] LABCLIA [id number] [place] [address] [place] Sodium [Moles/Vol] 136 mmol/L Normal 136-144 [facility] Comment on above: Order Comment: Speci men Type: BLOOD SPECIMENOrdering Facility: [facility] Address: [address] [place] [address] Performed By: #### 2 4323-8 ####[facility] LABCLIA [id number] [place] [address] [place] Urea nitrogen [Mass/Vol] 16 mg/dL Normal 9-24 [facility] Comment on above: Order Comment: Speci men Type: BLOOD SPECIMENOrdering Facility: [facility] Address: [address] [place] [address] Performed By: #### 2 4323-8 ####[facility] LABCLIA [id number] [place] [address] [place] THERAPY NTon 07-07-2024 THERAPY NT Normal [facility] THERAPY NT Normal [facility] XR CHEST 2V FRONTAL/LATon XR CHEST 2V FRONTAL/LAT Normal C [facility] CBC panel Auto (Bld)on 07-06 Erythrocyte distribution width (RBC) [Ratio] 12.4 % Normal 11.5-15.0 [facility] Comment on above: Order Comment: Speci men Type: BLOOD SPECIMENOrdering Facility: [facility] Address: [address] [place] [address] Performed By: #### 5 8410-2 ####[facility] LABCLIA [id number] [place] [address] [place] Hematocrit (Bld) [Volume fraction] 40.2 % Normal 39.0-51.0 [facility] Comment on above: Order Comment: Speci men Type: BLOOD SPECIMENOrdering Facility: [facility] Address: [address] [place] [address] Performed By: #### 5 8410-2 ####[facility] LABIA [id number] [place] [address] [place] Hemoglobin (Bld) [Mass/Vol] 14.3 g/dL Normal 13.0-17.0 [facility] Comment on above: Order Comment: Speci men Type: BLOOD SPECIMENOrdering Facility: [facility] Address: [address] [place] [address] Performed By: #### 5 8410-2 ####[facility] LABIA [id number] [place] [address] [place] MCH (RBC) [Entitic mass] 31.7 pg Normal 26.0-34.0 [facility] Comment on above: Order Comment: Speci men Type: BLOOD SPECIMENOrdering Facility: [facility] Address: [address] [place] [address] Performed By: #### 5 8410-2 ####[facility] LABCLIA [id number] [place] [address] [place] MCHC (RBC) [Mass/Vol] 35.6 g/dL Normal 30.5-36.0 [facility] Comment on above: Order Comment: Speci men Type: BLOOD SPECIMENOrdering Facility: [facility] Address: [address] [place] [address] Performed By: #### 5 8410-2 ####[facility] LABCLIA [id number] [place] [address] [place] MCV (RBC) [Entitic vol] 89.1 fL Normal 80.0-100.0 C [facility] Comment on above: Order Comment: Speci men Type: BLOOD SPECIMENOrdering Facility: [facility] Address: [address] [place] [address] Performed By: #### 5 8410-2 ####[facility] LABIA [id number] [place] [address] [place] Nucleated RBC (Bld) [#/Vol] 10*3/uL Normal <0.01 [facility] Comment on above: Order Comment: Speci men Type: BLOOD SPECIMENOrdering Facility: [facility] Address: [address] [place] [address] Performed By: #### 5 8410-2 ####[facility] LABIA [id number] [place] [address] [place] Platelet mean volume (Bld) [Entitic vol] 11.8 fL Normal 9.0-12.7 [facility] Comment on above: Order Comment: Speci men Type: BLOOD SPECIMENOrdering Facility: [facility] Address: [address] [place] [address] Performed By: #### 5 8410-2 ####[facility] LABIA [id number] [place] [address] [place] Platelets (Bld) [#/Vol] 65 10*3/uL Low 150-400 C [facility] Comment on above: Order Comment: Speci men Type: BLOOD SPECIMENOrdering Facility: [facility] Address: [address] [place] [address] Result Comment: Resu lts checked and verified.No clot detected. Performed By: #### 5 8410-2 ####[facility] LABCLIA [id number] [place] [address] [place] RBC (Bld) [#/Vol] 4.51 10*6/uL Normal 4.20-6.00 [facility] Comment on above: Order Comment: Speci men Type: BLOOD SPECIMENOrdering Facility: [facility] Address: [address] [place] [address] Performed By: #### 5 8410-2 ####[facility] LABCLIA [id number] [place] [address] [place] WBC (Bld) [#/Vol] 9.22 10*3/uL Normal 3.70-11.00 [facility] Comment on above: Order Comment: Speci men Type: BLOOD SPECIMENOrdering Facility: [facility] Address: [address] [place] [address] Performed By: #### 5 8410-2 ####[facility] LABCLIA [id number] [place] [address] [place] Comprehensive metabolic 2000 panelon 07-06-2024 Albumin [Mass/Vol] 3.1 g/dL Low 3.9-4.9 [facility] Comment on above: Order Comment: Speci men Type: BLOOD SPECIMENOrdering Facility: [facility] Address: [address] [place] [address] Performed By: #### 2 4323-8 ####[facility] LABCLIA [id number] [place] [address] [place] ALP [Catalytic activity/Vol] 47 U/L Normal 38-113 [facility] Comment on above: Order Comment: Speci men Type: BLOOD SPECIMENOrdering Facility: [facility] Address: [address] [place] [address] Performed By: #### 2 4323-8 ####[facility] LABCLIA [id number] [place] [address] [place] ALT [Catalytic activity/Vol] 20 U/L Normal 10-54 [facility] Comment on above: Order Comment: Speci men Type: BLOOD SPECIMENOrdering Facility: [facility] Address: [address] [id number] Performed By: #### 2 4323-8 ####[facility] LABCLIA [id number] [place] [address] [place] Anion gap [Moles/Vol] 6 mmol/L Low 8-15 [facility] Comment on above: Order Comment: Speci men Type: BLOOD SPECIMENOrdering Facility: [facility] Address: [address] [place] [address] Performed By: #### 2 4323-8 ####[facility] LABCLIA [id number] [place] [address] [place] AST [Catalytic activity/Vol] 38 U/L Normal 14-40 [facility] Comment on above: Order Comment: Speci men Type: BLOOD SPECIMENOrdering Facility: [facility] Address: [address] [place] [address] Performed By: #### 2 4323-8 ####[facility] LABCLIA [id number] [place] [address] [place] Bilirubin [Mass/Vol] 1.1 mg/dL Normal 0.2-1.3 [facility] Comment on above: Order Comment: Speci men Type: BLOOD SPECIMENOrdering Facility: [facility] Address: [address] [place], [place] [address] Performed By: #### 2 4323-8 ####[facility] LABCLIA [id number] [place] [address] [place] Calcium [Mass/Vol] 8.0 mg/dL Low 8.5-10.2 [facility] Comment on above: Order Comment: Speci men Type: BLOOD SPECIMENOrdering Facility: [facility] Address: [address] [place], [place] [id number] Performed By: #### 2 4323-8 ####[facility] LABCLIA [id number] [place] [id number] [place] Chloride [Moles/Vol] 101 mmol/L Normal 98-107 [facility] Comment on above: Order Comment: Speci men Type: BLOOD SPECIMENOrdering Facility: [facility] Address: [address] [place] [address] Performed By: #### 2 4323-8 ####[facility] LABCLIA [id number] [place] [address] [place] CO2 [Moles/Vol] 28 mmol/L Normal 22-30 [facility] Comment on above: Order Comment: Speci men Type: BLOOD SPECIMENOrdering Facility: [facility] Address: [address] [place] [address] Performed By: #### 2 4323-8 ####[facility] LABCLIA [id number] [place] [address] [place] Creatinine [Mass/Vol] 0.83 mg/dL Normal 0.73-1.22 [facility] Comment on above: Order Comment: Speci men Type: BLOOD SPECIMENOrdering Facility: [facility] Address: [address] [place] [address] Performed By: #### 2 4323-8 ####[facility] LABCLIA [id number] [address] [place] Creatinine and Glomerular filtration rate.predicted panel (S/P/Bld) 100 mL/min/1.73m??? Normal >=60 [facility] Comment on above: Order Comment: Speci men Type: BLOOD SPECIMENOrdering Facility: [facility] Address: [address] [place] [address] Result Comment: Lorenza mated Glomerular Filtration Rate (eGFR) is calculated using the 2020 CKD-EPI creatinine equation. This equation utilizes serum creatinine, sex, and age as parameters. The creatinine assay has traceable calibration to isotope dilution-mass spectrometry. Refer to KDIGO guidelines for clinical interpretation. In patients with unstable renal function, e.g. those with acute kidney injury, the eGFR may not accurately reflect actual GFR. Performed By: #### 2 4323-8 ####[facility] LABCLIA [id number] [place] [address] [place] Glucose [Mass/Vol] 147 mg/dL High 74-99 [facility] Comment on above: Order Comment: Speci men Type: BLOOD SPECIMENOrdering Facility: [facility] Address: [address] [place] [address] Result Comment: The [place] Diabetes [employer] (ADA) provides guidance for cutoff values for fasting glucose and random glucose. The ADA defines fasting as no caloric intake for at least 8 hours. Fasting plasma glucose results between 100 to 125 mg/dL indicate increased risk for diabetes (prediabetes).Fasting plasma glucose results greater than or equal to 126 mg/dL meet the criteria for diagnosis of diabetes. In the absence of unequivocal hyperglycemia, results should be confirmed by repeat testing. In a patient with classic symptoms of hyperglycemia or hyperglycemic crisis, random plasma glucose results greater than or equal to 200 mg/dL meet the criteria for diagnosis of diabetes.Reference: Standards of Medical Care in Diabetes 2016, [place] [employer]. Diabetes Care. 2016.39(Suppl 1). Performed By: #### 2 4323-8 ####[facility] LABIA [id number] [place] [address] [place] Potassium [Moles/Vol] 3.7 mmol/L Normal 3.7-5.1 [facility] Comment on above: Order Comment: Speci men Type: BLOOD SPECIMENOrdering Facility: [facility] Address: [address] [place] [address] Performed By: #### 2 4323-8 ####[facility] LABIA [id number] [place] [address] [place] Protein [Mass/Vol] 5.1 g/dL Low 6.3-8.0 [facility] Comment on above: Order Comment: Speci men Type: BLOOD SPECIMENOrdering Facility: [facility] Address: [address] [place] [address] Performed By: #### 2 4323-8 ####[facility] LABCLIA [id number] [place] [address] [place] Sodium [Moles/Vol] 135 mmol/L Low 136-144 [facility] Comment on above: Order Comment: Speci men Type: BLOOD SPECIMENOrdering Facility: [facility] Address: [address] [place] [address] Performed By: #### 2 4323-8 ####[facility] LABCLIA [id number] [place] [address] [place] Urea nitrogen [Mass/Vol] 14 mg/dL Normal 9-24 [facility] Comment on above: Order Comment: Speci men Type: BLOOD SPECIMENOrdering Facility: [facility] Address: [address] [place] [address] Performed By: #### 2 4323-8 ####[facility] LABIA [id number] [place] [address] [place] XR CHEST 1V FRONTAL PORTon 0 07-06-2024 XR CHEST 1V FRONTAL PORT Normal [facility] ARTERIAL BLOOD GASESon 07-05 Base excess Calc (Bld) [Moles/Vol] 1 mmol/L Normal 0-2 [facility] Comment on above: Order Comment: Speci men Type: ARTERIAL BLOOD SPECIMENOrdering Facility: [facility] Address: [address] [place] [address] Performed By: #### A LLBG ####[facility] LABCLIA [id number] [place] [address] [place] Body temperature 98.6 [degF] Normal [facility] Comment on above: Order Comment: Speci men Type: ARTERIAL BLOOD SPECIMENOrdering Facility: [facility] Address: [address] [place] [address] Performed By: #### A LLBG ####[facility] LABIA [id number] [place] [address] [place] Calcium.ionized (Bld) [Mass/Vol] 1.11 mmol/L Normal 1.08-1.30 [facility] Comment on above: Order Comment: Speci men Type: ARTERIAL BLOOD SPECIMENOrdering Facility: [facility] Address: [address] [place] [address] Performed By: #### A LLBG ####[facility] LABCLIA [id number] [place] [address] [place] Calcium.ionized adjusted to pH 7.4 (BldA) [Moles/Vol] 1.14 mmol/L Normal 1.08-1.30 [facility] Comment on above: Order Comment: Speci men Type: ARTERIAL BLOOD SPECIMENOrdering Facility: [facility] Address: [address] [place] [address] Performed By: #### A LLBG ####[facility] LABCLIA [id number] [place] [address] [place] Carboxyhemoglobin (BldA) [Mass fraction] 1.1 % Normal 0.0-2.0 [facility] Comment on above: Order Comment: Speci men Type: ARTERIAL BLOOD SPECIMENOrdering Facility: [facility] Address: [address] [place] [address] Result Comment: Carb oxyhemoglobin Reference Range for Smokers: 2.0-8.0% Performed By: #### A LLBG ####[facility] LABCLIA [id number] [place] [address] [place] CO2 (Bld) [Partial pressure] 35 mm Hg Low 36-46 [facility] Comment on above: Order Comment: Speci men Type: ARTERIAL BLOOD SPECIMENOrdering Facility: [facility] Address: [address] [place] [address] Performed By: #### A LLBG ####[facility] LABCLIA [id number] [place] [address] [place] Glucose [Mass/Vol] 134 mg/dL High 60-105 [facility] Comment on above: Order Comment: Speci men Type: ARTERIAL BLOOD SPECIMENOrdering Facility: [facility] Address: [address] [place] [address] Performed By: #### A LLBG ####[facility] LABCLIA [id number] [place] [address] [place] HCO3 (Bld) [Moles/Vol] 24 mmol/L Normal 22-26 [facility] Comment on above: Order Comment: Speci men Type: ARTERIAL BLOOD SPECIMENOrdering Facility: [facility] Address: [address] [place] [address] Performed By: #### A LLBG ####[facility] LABIA [id number] [place] [address] [place] Hematocrit (Bld) [Volume fraction] 44.3 % Normal 39.0-51.0 [facility] Comment on above: Order Comment: Speci men Type: ARTERIAL BLOOD SPECIMENOrdering Facility: [facility] Address: [address] [place] [address] Performed By: #### A LLBG ####[facility] LABIA [id number] [place] [address] [place] Hemoglobin (Bld) [Mass/Vol] 14.5 g/dL Normal 13.0-17.0 [facility] Comment on above: Order Comment: Speci men Type: ARTERIAL BLOOD SPECIMENOrdering Facility: [facility] Address: [address] [place] [address] Performed By: #### A LLBG ####[facility] LABIA [id number] [place] [address] [place] Lactate [Moles/Vol] 0.7 mmol/L Normal 0.5-2.2 [facility] Comment on above: Order Comment: Speci men Type: ARTERIAL BLOOD SPECIMENOrdering Facility: [facility] Address: [address] [place] [address] Performed By: #### A LLBG ####[facility] LABCLIA [id number] [place] [id number] [place] Methemoglobin (Bld) [Mass fraction] 0.7 % Normal 0.0-1.5 [facility] Comment on above: Order Comment: Speci men Type: ARTERIAL BLOOD SPECIMENOrdering Facility: [facility] Address: [address] [place] [address] Performed By: #### A LLBG ####[facility] LABCLIA [id number] [place] [address] [place] O2 THERAPY NC = Nasal Cannula Normal [facility] Comment on above: Order Comment: Speci men Type: ARTERIAL BLOOD SPECIMENOrdering Facility: [facility] Address: [address] [place] [address] Performed By: #### A LLBG ####[facility] LABCLIA [id number] [place] [address] [place] Oxygen (Bld) [Partial pressure] 88 mm Hg Normal 85-95 [facility] Comment on above: Order Comment: Speci men Type: ARTERIAL BLOOD SPECIMENOrdering Facility: [facility] Address: [address] [place] [address] Performed By: #### A LLBG ####[facility] LABCLIA [id number] [place] [address] [place] Oxyhemoglobin (BldA) [Mass fraction] 95 % Normal 95-98 [facility] Comment on above: Order Comment: Speci men Type: ARTERIAL BLOOD SPECIMENOrdering Facility: [facility] Address: [address] [place], [place] [id number] Performed By: #### A LLBG ####[facility] LABCLIA [id number] [place] [id number] [place] pH (Bld) 7.46 [pH] High 7.35-7.45 [facility] Comment on above: Order Comment: Speci men Type: ARTERIAL BLOOD SPECIMENOrdering Facility: [facility] Address: [address] [place] [address] Performed By: #### A LLBG ####[facility] LABCLIA [id number] [place] [address] [place] Potassium [Moles/Vol] 3.8 mmol/L Normal 3.5-5.0 [facility] Comment on above: Order Comment: Speci men Type: ARTERIAL BLOOD SPECIMENOrdering Facility: [facility] Address: [address] [place] [address] Performed By: #### A LLBG ####[facility] LABCLIA [id number] [place] [address] [place] Sodium [Moles/Vol] 133 mmol/L Low 136-144 [facility] Comment on above: Order Comment: Speci men Type: ARTERIAL BLOOD SPECIMENOrdering Facility: [facility] Address: [address] [place] [address] Performed By: #### A LLBG ####[facility] LABCLIA [id number] [place] [address] [place] Base excess Calc (Bld) [Moles/Vol] 1 mmol/L Normal 0-2 [facility] Comment on above: Order Comment: Speci men Type: ARTERIAL BLOOD SPECIMENOrdering Facility: [facility] Address: [address] [place] [address] Performed By: #### A LLBG ####[facility] LABCLIA [id number] [place] [address] [place] Body temperature 98.6 [degF] Normal [facility] Comment on above: Order Comment: Speci men Type: ARTERIAL BLOOD SPECIMENOrdering Facility: [facility] Address: [address] [place] [address] Performed By: #### A LLBG ####[facility] LABCLIA [id number] [place] [address] [place] Calcium.ionized (Bld) [Mass/Vol] 1.15 mmol/L Normal 1.08-1.30 [facility] Comment on above: Order Comment: Speci men Type: ARTERIAL BLOOD SPECIMENOrdering Facility: [facility] Address: [address] [place] [address] Performed By: #### A LLBG ####[facility] LABCLIA [id number] [place] [address] [place] Calcium.ionized adjusted to pH 7.4 (BldA) [Moles/Vol] 1.17 mmol/L Normal 1.08-1.30 [facility] Comment on above: Order Comment: Speci men Type: ARTERIAL BLOOD SPECIMENOrdering Facility: [facility] Address: [address] [place] [address] Performed By: #### A LLBG ####[facility] LABCLIA [id number] [place] [address] [place] Carboxyhemoglobin (BldA) [Mass fraction] 1.4 % Normal 0.0-2.0 [facility] Comment on above: Order Comment: Speci men Type: ARTERIAL BLOOD SPECIMENOrdering Facility: [facility] Address: [address] [place] [address] Result Comment: Carb oxyhemoglobin Reference Range for Smokers: 2.0-8.0% Performed By: #### A LLBG ####[facility] LABCLIA [id number] [place] [address] [place] CO2 (Bld) [Partial pressure] 37 mm Hg Normal 36-46 [facility] Comment on above: Order Comment: Speci men Type: ARTERIAL BLOOD SPECIMENOrdering Facility: [facility] Address: [address] [place] [address] Performed By: #### A LLBG ####[facility] LABCLIA [id number] [place] [address] [place] Glucose [Mass/Vol] 125 mg/dL High 60-105 [facility] Comment on above: Order Comment: Speci men Type: ARTERIAL BLOOD SPECIMENOrdering Facility: [facility] Address: [address] [place] [address] Performed By: #### A LLBG ####[facility] LABCLIA [id number] [place] [address] [place] HCO3 (Bld) [Moles/Vol] 24 mmol/L Normal 22-26 [facility] Comment on above: Order Comment: Speci men Type: ARTERIAL BLOOD SPECIMENOrdering Facility: [facility] Address: [address] [place] [address] Performed By: #### A LLBG ####[facility] LABCLIA [id number] [place] [address] [place] Hematocrit (Bld) [Volume fraction] 44.0 % Normal 39.0-51.0 [facility] Comment on above: Order Comment: Speci men Type: ARTERIAL BLOOD SPECIMENOrdering Facility: [facility] Address: [address] [place] [address] Performed By: #### A LLBG ####[facility] LABCLIA [id number] [place] [address] [place] Hemoglobin (Bld) [Mass/Vol] 14.3 g/dL Normal 13.0-17.0 [facility] Comment on above: Order Comment: Speci men Type: ARTERIAL BLOOD SPECIMENOrdering Facility: [facility] Address: [address] [place] [address] Performed By: #### A LLBG ####[facility] LABIA [id number] [place] [address] [place] Lactate [Moles/Vol] 0.7 mmol/L Normal 0.5-2.2 [facility] Comment on above: Order Comment: Speci men Type: ARTERIAL BLOOD SPECIMENOrdering Facility: [facility] Address: [address] [place], [place] [id number] Performed By: #### A LLBG ####[facility] LABCLIA [id number] [place] [address] [place] Methemoglobin (Bld) [Mass fraction] 0.9 % Normal 0.0-1.5 [facility] Comment on above: Order Comment: Speci men Type: ARTERIAL BLOOD SPECIMENOrdering Facility: [facility] Address: [address] [place] [id number] Performed By: #### A LLBG ####[facility] LABCLIA [id number] [place] [address] [place] O2 THERAPY NC = Nasal Cannula Normal [facility] Comment on above: Order Comment: Speci men Type: ARTERIAL BLOOD SPECIMENOrdering Facility: [facility] Address: [address] [place] [address] Performed By: #### A LLBG ####[facility] LABCLIA [id number] [place] [address] [place] Oxygen (Bld) [Partial pressure] 115 mm Hg High 85-95 [facility] Comment on above: Order Comment: Speci men Type: ARTERIAL BLOOD SPECIMENOrdering Facility: [facility] Address: [address] [place] [id number] Performed By: #### A LLBG ####[facility] LABCLIA [id number] [place] [id number] [place] Oxyhemoglobin (BldA) [Mass fraction] 96 % Normal 95-98 [facility] Comment on above: Order Comment: Speci men Type: ARTERIAL BLOOD SPECIMENOrdering Facility: [facility] Address: [address] [place] [id number] Performed By: #### A LLBG ####[facility] LABCLIA [id number] [place] [id number] [place] pH (Bld) 7.43 [pH] Normal 7.35-7.45 [facility] Comment on above: Order Comment: Speci men Type: ARTERIAL BLOOD SPECIMENOrdering Facility: [facility] Address: [address] [place] [address] Performed By: #### A LLBG ####[facility] LABCLIA [id number] [place] [address] [place] Potassium [Moles/Vol] 4.0 mmol/L Normal 3.5-5.0 [facility] Comment on above: Order Comment: Speci men Type: ARTERIAL BLOOD SPECIMENOrdering Facility: [facility] Address: [address] [place] [address] Performed By: #### A LLBG ####[facility] LABCLIA [id number] [place] [address] [place] Sodium [Moles/Vol] 134 mmol/L Low 136-144 [facility] Comment on above: Order Comment: Speci men Type: ARTERIAL BLOOD SPECIMENOrdering Facility: [facility] Address: [address] [place] [address] Performed By: #### A LLBG ####[facility] LABCLIA [id number] [place] [address] [place] Base excess Calc (Bld) [Moles/Vol] 0 mmol/L Normal 0-2 [facility] Comment on above: Order Comment: Speci men Type: ARTERIAL BLOOD SPECIMENOrdering Facility: [facility] Address: [address] [place] [address] Performed By: #### A LLBG ####[facility] LABCLIA [id number] [place] [address] [place] Body temperature 98.96 [degF] Normal [facility] Comment on above: Order Comment: Speci men Type: ARTERIAL BLOOD SPECIMENOrdering Facility: [facility] Address: [address] [place] [address] Performed By: #### A LLBG ####[facility] LABCLIA [id number] [place] [address] [place] Calcium.ionized (Bld) [Mass/Vol] 1.21 mmol/L Normal 1.08-1.30 [facility] Comment on above: Order Comment: Speci men Type: ARTERIAL BLOOD SPECIMENOrdering Facility: [facility] Address: [address] [place] [address] Performed By: #### A LLBG ####[facility] [id number] [place] [address] [place] Calcium.ionized adjusted to pH 7.4 (BldA) [Moles/Vol] 1.24 mmol/L Normal 1.08-1.30 [facility] Comment on above: Order Comment: Speci men Type: ARTERIAL BLOOD SPECIMENOrdering Facility: [facility] Address: [address] [place] [address] Performed By: #### A LLBG ####[facility] [id number] [place] [address] [place] Carboxyhemoglobin (BldA) [Mass fraction] 1.5 % Normal 0.0-2.0 [facility] Comment on above: Order Comment: Speci men Type: ARTERIAL BLOOD SPECIMENOrdering Facility: [facility] Address: [address] [place] [address] Result Comment: Carb oxyhemoglobin Reference Range for Smokers: 2.0-8.0% Performed By: #### A LLBG ####[facility] LABIA [id number] [place] [address] [place] CO2 (Bld) [Partial pressure] 35 mm Hg Low 36-46 [facility] Comment on above: Order Comment: Speci men Type: ARTERIAL BLOOD SPECIMENOrdering Facility: [facility] Address: [address] [place] [address] Performed By: #### A LLBG ####[facility] LABIA [id number] [place] [address] [place] CO2 adjusted to patient's actual temperature (Bld) [Partial pressure] 36 mmHg Normal 36-46 [facility] Comment on above: Order Comment: Speci men Type: ARTERIAL BLOOD SPECIMENOrdering Facility: [facility] Address: [address] [place] [address] Performed By: #### A LLBG ####[facility] LABCLIA [id number] [place] [address] [place] Glucose [Mass/Vol] 136 mg/dL High 60-105 [facility] Comment on above: Order Comment: Speci men Type: ARTERIAL BLOOD SPECIMENOrdering Facility: [facility] Address: [address] [place] [address] Performed By: #### A LLBG ####[facility] LABCLIA [id number] [place] [address] [place] HCO3 (Bld) [Moles/Vol] 24 mmol/L Normal 22-26 [facility] Comment on above: Order Comment: Speci men Type: ARTERIAL BLOOD SPECIMENOrdering Facility: [facility] Address: [address] [place] [address] Performed By: #### A LLBG ####[facility] LABCLIA [id number] [place] [address] [place] Hematocrit (Bld) [Volume fraction] 42.9 % Normal 39.0-51.0 [facility] Comment on above: Order Comment: Speci men Type: ARTERIAL BLOOD SPECIMENOrdering Facility: [facility] Address: [address] [place] [address] Performed By: #### A LLBG ####[facility] LABCLIA [id number] [place] [address] [place] Hemoglobin (Bld) [Mass/Vol] 14.0 g/dL Normal 13.0-17.0 [facility] Comment on above: Order Comment: Speci men Type: ARTERIAL BLOOD SPECIMENOrdering Facility: [facility] Address: [address] [place] [address] Performed By: #### A LLBG ####[facility] LABCLIA [id number] [place] [address] [place] Lactate [Moles/Vol] 1.0 mmol/L Normal 0.5-2.2 [facility] Comment on above: Order Comment: Speci men Type: ARTERIAL BLOOD SPECIMENOrdering Facility: [facility] Address: [address] [place] [address] Performed By: #### A LLBG ####[facility] LABIA [id number] [place] [address] [place] LITERS 2 Liters/min Normal [facility] Comment on above: Order Comment: Speci men Type: ARTERIAL BLOOD SPECIMENOrdering Facility: [facility] Address: [address] [place] [address] Performed By: #### A LLBG ####[facility] LABIA [id number] [place] [address] [place] Methemoglobin (Bld) [Mass fraction] 1.0 % Normal 0.0-1.5 [facility] Comment on above: Order Comment: Speci men Type: ARTERIAL BLOOD SPECIMENOrdering Facility: [facility] Address: [address] [place] [address] Performed By: #### A LLBG ####[facility] LABIA [id number] [place] [address] [place] O2 THERAPY NC = Nasal Cannula Normal [facility] Comment on above: Order Comment: Speci men Type: ARTERIAL BLOOD SPECIMENOrdering Facility: [facility] Address: [address] [place] [address] Performed By: #### A LLBG ####[facility] LABCLIA [id number] [place] [address] [place] Oxygen (Bld) [Partial pressure] 107 mm Hg High 85-95 [facility] Comment on above: Order Comment: Speci men Type: ARTERIAL BLOOD SPECIMENOrdering Facility: [facility] Address: [address] [place] [id number] Performed By: #### A LLBG ####[facility] LABCLIA [id number] [address] [address] [place] Oxygen adjusted to patient's actual temperature (Bld) [Partial pressure] 108 mmHg High 85-95 [facility] Comment on above: Order Comment: Speci men Type: ARTERIAL BLOOD SPECIMENOrdering Facility: [facility] Address: [address] [place] [address] Performed By: #### A LLBG ####[facility] LABCLIA [id number] [place] [address] [place] Oxyhemoglobin (BldA) [Mass fraction] 96 % Normal 95-98 [facility] Comment on above: Order Comment: Speci men Type: ARTERIAL BLOOD SPECIMENOrdering Facility: [facility] Address: [address] [place] [address] Performed By: #### A LLBG ####[facility] LABCLIA [id number] [place] [address] [place] pH (Bld) 7.44 [pH] Normal 7.35-7.45 [facility] Comment on above: Order Comment: Speci men Type: ARTERIAL BLOOD SPECIMENOrdering Facility: [facility] Address: [address] [place] [address] Performed By: #### A LLBG ####[facility] LABCLIA [id number] [place] [address] [place] pH adjusted to patient's actual temperature (Bld) 7.44 Normal 7.35-7.45 [facility] Comment on above: Order Comment: Speci men Type: ARTERIAL BLOOD SPECIMENOrdering Facility: [facility] Address: [address] [place] [address] Performed By: #### A LLBG ####[facility] LABCLIA [id number] [place] [address] [place] Potassium [Moles/Vol] 4.0 mmol/L Normal 3.5-5.0 [facility] Comment on above: Order Comment: Speci men Type: ARTERIAL BLOOD SPECIMENOrdering Facility: [facility] Address: [address] [place] [address] Performed By: #### A LLBG ####[facility] LABCLIA [id number] [place] [address] [place] Sodium [Moles/Vol] 132 mmol/L Low 136-144 [facility] Comment on above: Order Comment: Speci men Type: ARTERIAL BLOOD SPECIMENOrdering Facility: [facility] Address: [address] [place] [address] Performed By: #### A LLBG ####[facility] LABCLIA [id number] [place] [address] [place] Base excess Calc (Bld) [Moles/Vol] 0 mmol/L Normal 0-2 [facility] Comment on above: Order Comment: Speci men Type: ARTERIAL BLOOD SPECIMENOrdering Facility: [facility] Address: [address] [place] [address] Performed By: #### A LLBG ####[facility] LABIA [id number] [place] [address] [place] Body temperature 99.14 [degF] Normal [facility] Comment on above: Order Comment: Speci men Type: ARTERIAL BLOOD SPECIMENOrdering Facility: [facility] Address: [address] [place] [address] Performed By: #### A LLBG ####[facility] LABCLIA [id number] [place] [address] [place] Calcium.ionized (Bld) [Mass/Vol] 1.07 mmol/L Low 1.08-1.30 [facility] Comment on above: Order Comment: Speci men Type: ARTERIAL BLOOD SPECIMENOrdering Facility: [facility] Address: [address] [place] [address] Performed By: #### A LLBG ####[facility] LABCLIA [id number] [place] [address] [place] Calcium.ionized adjusted to pH 7.4 (BldA) [Moles/Vol] 1.10 mmol/L Normal 1.08-1.30 [facility] Comment on above: Order Comment: Speci men Type: ARTERIAL BLOOD SPECIMENOrdering Facility: [facility] Address: [address] [place] [address] Performed By: #### A LLBG ####[facility] LABCLIA [id number] [place] [address] [place] Carboxyhemoglobin (BldA) [Mass fraction] 1.4 % Normal 0.0-2.0 [facility] Comment on above: Order Comment: Speci men Type: ARTERIAL BLOOD SPECIMENOrdering Facility: [facility] Address: [address] [place] [address] Result Comment: Carb oxyhemoglobin Reference Range for Smokers: 2.0-8.0% Performed By: #### A LLBG ####[facility] LABIA [id number] [place] [address] [place] CO2 (Bld) [Partial pressure] 34 mm Hg Low 36-46 [facility] Comment on above: Order Comment: Speci men Type: ARTERIAL BLOOD SPECIMENOrdering Facility: [facility] Address: [address] [place] [address] Performed By: #### A LLBG ####[facility] LABCLIA [id number] [place] [address] [place] CO2 adjusted to patient's actual temperature (Bld) [Partial pressure] 35 mmHg Low 36-46 [facility] Comment on above: Order Comment: Speci men Type: ARTERIAL BLOOD SPECIMENOrdering Facility: [facility] Address: [address] [place] [address] Performed By: #### A LLBG ####[facility] LABCLIA [id number] [place] [address] [place] Glucose [Mass/Vol] 148 mg/dL High 60-105 [facility] Comment on above: Order Comment: Speci men Type: ARTERIAL BLOOD SPECIMENOrdering Facility: [facility] Address: [address] [place] [address] Performed By: #### A LLBG ####[facility] LABCLIA [id number] [place] [address] [place] HCO3 (Bld) [Moles/Vol] 23 mmol/L Normal 22-26 [facility] Comment on above: Order Comment: Speci men Type: ARTERIAL BLOOD SPECIMENOrdering Facility: [facility] Address: [address] [place] [address] Performed By: #### A LLBG ####[facility] LABCLIA [id number] [place] [address] [place] Hematocrit (Bld) [Volume fraction] 41.6 % Normal 39.0-51.0 [facility] Comment on above: Order Comment: Speci men Type: ARTERIAL BLOOD SPECIMENOrdering Facility: [facility] Address: [address] [place] [address] Performed By: #### A LLBG ####[facility] LABCLIA [id number] [place] [address] [place] Hemoglobin (Bld) [Mass/Vol] 13.5 g/dL Normal 13.0-17.0 [facility] Comment on above: Order Comment: Speci men Type: ARTERIAL BLOOD SPECIMENOrdering Facility: [facility] Address: [address] [place] [address] Performed By: #### A LLBG ####[facility] LABCLIA [id number] [place] [address] [place] Lactate [Moles/Vol] 1.1 mmol/L Normal 0.5-2.2 [facility] Comment on above: Order Comment: Speci men Type: ARTERIAL BLOOD SPECIMENOrdering Facility: [facility] Address: [address] [place] [address] Performed By: #### A LLBG ####[facility] LABCLIA [id number] [place] [address] [place] LITERS 2 Liters/min Normal [facility] Comment on above: Order Comment: Speci men Type: ARTERIAL BLOOD SPECIMENOrdering Facility: [facility] Address: [address] [place] [address] Performed By: #### A LLBG ####[facility] LABCLIA [id number] [place] [address] [place] Methemoglobin (Bld) [Mass fraction] 0.9 % Normal 0.0-1.5 [facility] Comment on above: Order Comment: Speci men Type: ARTERIAL BLOOD SPECIMENOrdering Facility: [facility] Address: [address] [place] [address] Performed By: #### A LLBG ####[facility] LABCLIA [id number] [place] [address] [place] O2 THERAPY [place] = Nasal Cannula Normal [facility] Comment on above: Order Comment: Speci men Type: ARTERIAL BLOOD SPECIMENOrdering Facility: [facility] Address: [address] [place] [address] Performed By: #### A LLBG ####[facility] LABCLIA [id number] [place] [address] [place] Oxygen (Bld) [Partial pressure] 109 mm Hg High 85-95 [facility] Comment on above: Order Comment: Speci men Type: ARTERIAL BLOOD SPECIMENOrdering Facility: [facility] Address: [address] [place] [address] Performed By: #### A LLBG ####[facility] LABCLIA [id number] [place] [address] [place] Oxygen adjusted to patient's actual temperature (Bld) [Partial pressure] 111 mmHg High 85-95 [facility] Comment on above: Order Comment: Speci men Type: ARTERIAL BLOOD SPECIMENOrdering Facility: [facility] Address: [address] [place] [address] Performed By: #### A LLBG ####[facility] LABCLIA [id number] [place] [address] [place] Oxyhemoglobin (BldA) [Mass fraction] 96 % Normal 95-98 [facility] Comment on above: Order Comment: Speci men Type: ARTERIAL BLOOD SPECIMENOrdering Facility: [facility] Address: [address] [place] [address] Performed By: #### A LLBG ####[facility] LABIA [id number] [place] [address] [place] pH (Bld) 7.44 [pH] Normal 7.35-7.45 [facility] Comment on above: Order Comment: Speci men Type: ARTERIAL BLOOD SPECIMENOrdering Facility: [facility] Address: [address] [place] [address] Performed By: #### A LLBG ####[facility] LABCLIA [id number] [place] [address] [place] pH adjusted to patient's actual temperature (Bld) 7.44 Normal 7.35-7.45 [facility] Comment on above: Order Comment: Speci men Type: ARTERIAL BLOOD SPECIMENOrdering Facility: [facility] Address: [address] [place] [address] Performed By: #### A LLBG ####[facility] LABIA [id number] [place] [address] [place] Potassium [Moles/Vol] 4.0 mmol/L Normal 3.5-5.0 [facility] Comment on above: Order Comment: Speci men Type: ARTERIAL BLOOD SPECIMENOrdering Facility: [facility] Address: [address] [place] [address] Performed By: #### A LLBG ####[facility] LABCLIA [id number] [place] [address] [place] Sodium [Moles/Vol] 133 mmol/L Low 136-144 [facility] Comment on above: Order Comment: Speci men Type: ARTERIAL BLOOD SPECIMENOrdering Facility: [facility] Address: [address] [place] [address] Performed By: #### A LLBG ####[facility] LABCLIA [id number] [place] [address] [place] CASE MGT INIT ASSESon 2023 CASE MGT INIT ASSES Normal [facility] CBC panel Auto (Bld)on 07-05 Erythrocyte distribution width (RBC) [Ratio] 12.7 % Normal 11.5-15.0 [facility] Comment on above: Order Comment: Speci men Type: BLOOD SPECIMENOrdering Facility: [facility] Address: [address] [place] [address] Performed By: #### 5 8410-2 ####[facility] LABCLIA [id number] [place] [address] [place] Hematocrit (Bld) [Volume fraction] 40.2 % Normal 39.0-51.0 [facility] Comment on above: Order Comment: Speci men Type: BLOOD SPECIMENOrdering Facility: [facility] Address: [address] [place] [address] Performed By: #### 5 8410-2 ####[facility] LABCLIA [id number] [place] [address] [place] Hemoglobin (Bld) [Mass/Vol] 13.9 g/dL Normal 13.0-17.0 [facility] Comment on above: Order Comment: Speci men Type: BLOOD SPECIMENOrdering Facility: [facility] Address: [address] [place] [address] Performed By: #### 5 8410-2 ####[facility] LABIA [id number] [place] [address] [place] MCH (RBC) [Entitic mass] 30.6 pg Normal 26.0-34.0 [facility] Comment on above: Order Comment: Speci men Type: BLOOD SPECIMENOrdering Facility: [facility] Address: [address] [place] [address] Performed By: #### 5 8410-2 ####[facility] LABIA [id number] [place] [address] [place] MCHC (RBC) [Mass/Vol] 34.6 g/dL Normal 30.5-36.0 [facility] Comment on above: Order Comment: Speci men Type: BLOOD SPECIMENOrdering Facility: [facility] Address: [address] [place] [address] Performed By: #### 5 8410-2 ####[facility] LABIA [id number] [place] [address] [place] MCV (RBC) [Entitic vol] 88.5 fL Normal 80.0-100.0 [facility] Comment on above: Order Comment: Speci men Type: BLOOD SPECIMENOrdering Facility: [facility] Address: [address] [place] [address] Performed By: #### 5 8410-2 ####[facility] LABIA [id number] [place] [address] [place] Nucleated RBC (Bld) [#/Vol] 10*3/uL Normal <0.01 [facility] Comment on above: Order Comment: Speci men Type: BLOOD SPECIMENOrdering Facility: [facility] Address: [address] [place] [address] Performed By: #### 5 8410-2 ####[facility] LABCLIA [id number] [place] [address] [place] Platelet mean volume (Bld) [Entitic vol] 11.7 fL Normal 9.0-12.7 [facility] Comment on above: Order Comment: Speci men Type: BLOOD SPECIMENOrdering Facility: [facility] Address: [address] [place] [address] Performed By: #### 5 8410-2 ####[facility] LABIA [id number] [place] [address] [place] Platelets (Bld) [#/Vol] 83 10*3/uL Low 150-400 [facility] Comment on above: Order Comment: Speci men Type: BLOOD SPECIMENOrdering Facility: [facility] Address: [address] [place] [address] Result Comment: No c lot detected. Performed By: #### 5 8410-2 ####[facility] LABIA [id number] [place] [address] [place] RBC (Bld) [#/Vol] 4.54 10*6/uL Normal 4.20-6.00 [facility] Comment on above: Order Comment: Speci men Type: BLOOD SPECIMENOrdering Facility: [facility] Address: [address] [place] [address] Performed By: #### 5 8410-2 ####[facility] LABIA [id number] [place] [address] [place] WBC (Bld) [#/Vol] 11.79 10*3/uL High 3.70-11.00 [facility] Comment on above: Order Comment: Speci men Type: BLOOD SPECIMENOrdering Facility: [facility] Address: [address] [place] [address] Performed By: #### 5 8410-2 ####[facility] LABCLIA [id number] [address] [address] [place] Comprehensive metabolic 2000 panelon 07-05-2024 Albumin [Mass/Vol] 3.1 g/dL Low 3.9-4.9 [facility] Comment on above: Order Comment: Speci men Type: BLOOD SPECIMENOrdering Facility: [facility] Address: [address] [place] [address] Performed By: #### 2 4323-8, 86592-1, HSTNT ####[facility] LABCLIA [id number] [place] [id number] [place] ALP [Catalytic activity/Vol] 45 U/L Normal 38-113 [facility] Comment on above: Order Comment: Speci men Type: BLOOD SPECIMENOrdering Facility: [facility] Address: [address] [place] [address] Performed By: #### 2 4323-8, , HSTNT ####[facility] LABIA [id number] [place] [id number] [place] ALT [Catalytic activity/Vol] 25 U/L Normal 10-54 [facility] Comment on above: Order Comment: Speci men Type: BLOOD SPECIMENOrdering Facility: [facility] Address: [address] [place] [address] Performed By: #### 2 4323-8, , HSTNT ####[facility] LABCLIA [id number] [facility] [place] [id number] [place] Anion gap [Moles/Vol] 9 mmol/L Normal 8-15 [facility] Comment on above: Order Comment: Speci men Type: BLOOD SPECIMENOrdering Facility: [facility] Address: [address] [place] [address] Performed By: #### 2 4323-8, 77554-8, HSTNT ####[facility] LABCLIA [id number] [place] [address] [place] AST [Catalytic activity/Vol] 45 U/L High 14-40 [facility] Comment on above: Order Comment: Speci men Type: BLOOD SPECIMENOrdering Facility: [facility] Address: [address] [place] [address] Performed By: #### 2 4323-8, , HSTNT ####[facility] LABCLIA [id number] [place] [address] [place] Bilirubin [Mass/Vol] 1.0 mg/dL Normal 0.2-1.3 [facility] Comment on above: Order Comment: Speci men Type: BLOOD SPECIMENOrdering Facility: [facility] Address: [address] [place] [address] Performed By: #### 2 432-8, , HSTNT ####[facility] LABCLIA [id number] [place] [address] [place] Calcium [Mass/Vol] 7.4 mg/dL Low 8.5-10.2 [facility] Comment on above: Order Comment: Speci men Type: BLOOD SPECIMENOrdering Facility: [facility] Address: [address] [place] [address] Performed By: #### 2 432-8, , HSTNT ####[facility] LABCLIA [id number] [place] [address] [place] Chloride [Moles/Vol] 105 mmol/L Normal 98-107 [facility] Comment on above: Order Comment: Speci men Type: BLOOD SPECIMENOrdering Facility: [facility] Address: [address] [place] [address] Performed By: #### 2 432-8, , HSTNT ####[facility] LABCLIA [id number] [place] [address] [place] CO2 [Moles/Vol] 22 mmol/L Normal 22-30 [facility] Comment on above: Order Comment: Speci men Type: BLOOD SPECIMENOrdering Facility: [facility] Address: [address] [place] [address] Performed By: #### 2 4323-8, , HSTNT ####[facility] LABCLIA [id number] [place] [address] [place] Creatinine [Mass/Vol] 0.81 mg/dL Normal 0.73-1.22 [facility] Comment on above: Order Comment: Speci men Type: BLOOD SPECIMENOrdering Facility: [facility] Address: [address] [place] [address] Performed By: #### 2 432-8, , HSTNT ####[facility] LABCLIA [id number] [place] [address] [place] Creatinine and Glomerular filtration rate.predicted panel (S/P/Bld) 100 mL/min/1.73m??? Normal >=60 [facility] Comment on above: Order Comment: Speci men Type: BLOOD SPECIMENOrdering Facility: [facility] Address: [address] [place] [address] Result Comment: Lorenza mated Glomerular Filtration Rate (eGFR) is calculated using the 2020 CKD-EPI creatinine equation. This equation utilizes serum creatinine, sex, and age as parameters. The creatinine assay has traceable calibration to isotope dilution-mass spectrometry. Refer to KDIGO guidelines for clinical interpretation. In patients with unstable renal function, e.g. those with acute kidney injury, the eGFR may not accurately reflect actual GFR. Performed By: #### 2 4323-8, , HSTNT ####[facility] LABCLIA [id number] [place] [address] [place] Glucose [Mass/Vol] 149 mg/dL High 74-99 [facility] Comment on above: Order Comment: Speci men Type: BLOOD SPECIMENOrdering Facility: [facility] Address: [address] [place] [address], [place] [address] Result Comment: The [place] [employer] (ADA) provides guidance for cutoff values for fasting glucose and random glucose. The ADA defines fasting as no caloric intake for at least 8 hours. Fasting plasma glucose results between 100 to 125 mg/dL indicate increased risk for diabetes (prediabetes).Fasting plasma glucose results greater than or equal to 126 mg/dL meet the criteria for diagnosis of diabetes. In the absence of unequivocal hyperglycemia, results should be confirmed by repeat testing. In a patient with classic symptoms of hyperglycemia or hyperglycemic crisis, random plasma glucose results greater than or equal to 200 mg/dL meet the criteria for diagnosis of diabetes.Reference: Standards of Medical Care in Diabetes 2016, [place] [employer]. Diabetes Care. 2016.39(Suppl 1). Performed By: #### 2 4323-8, , HSTNT ####[facility] LABCLIA [id number] [place] [address] [place] Potassium [Moles/Vol] 4.2 mmol/L Normal 3.7-5.1 [facility] Comment on above: Order Comment: Speci men Type: BLOOD SPECIMENOrdering Facility: [facility] Address: [address] [place] [address] Performed By: #### 2 432-8, , HSTNT ####[facility] LABIA [id number] [place] [id number] [place] Protein [Mass/Vol] 4.6 g/dL Low 6.3-8.0 [facility] Comment on above: Order Comment: Speci men Type: BLOOD SPECIMENOrdering Facility: [facility] Address: [address] [place] [address] Performed By: #### 2 4323-8, , HSTNT ####[facility] LABCLIA [id number] [address] [address] [place] Sodium [Moles/Vol] 136 mmol/L Normal 136-144 [facility] Comment on above: Order Comment: Speci men Type: BLOOD SPECIMENOrdering Facility: [facility] Address: [address] [place], [place] [address] Performed By: #### 2 4323-8, 26071-6, HSTNT ####[facility] LABCLIA [id number] [address] [address] [place] Urea nitrogen [Mass/Vol] 17 mg/dL Normal 9-24 [facility] Comment on above: Order Comment: Speci men Type: BLOOD SPECIMENOrdering Facility: [facility] Address: [address] [place], [place] [address] Performed By: #### 2 4323-8, , HSTNT ####[facility] LABCLIA [id number] [place] [id number] [place] HIGH SENSITIVITY TROPONIN To n 07-05-2024 Troponin T.cardiac High sensitivity method [Mass/Vol] 79 ng/L High <12 [facility] Comment on above: Order Comment: Speci men Type: BLOOD SPECIMENOrdering Facility: [facility] Address: [address] [place] [address] Performed By: #### 2 4323-8, , HSTNT ####[facility] LABCLIA [id number] [place] [id number] [place] Magnesium SerPl-mCncon 07-05 Magnesium [Mass/Vol] 2.6 mg/dL High 1.7-2.3 [facility] Comment on above: Order Comment: Speci men Type: BLOOD SPECIMENOrdering Facility: [facility] Address: [address] [place], [place] [address] Performed By: #### 2 4323-8, , HSTNT ####[facility] LABCLIA [id number] [address] [address] [place] XR CHEST 1V FRONTAL PORTon 0 07-05-2024 XR CHEST 1V FRONTAL PORT Normal [facility] ANES POSTPROC EVALon 024 ANES POSTPROC EVAL Normal [facility] ANES PRE-OPon 07-04-2024 ANES PRE-OP Normal [facility] ARTERIAL BLOOD GASESon 07-04 Base excess Calc (Bld) [Moles/Vol] 0 mmol/L Normal 0-2 [facility] Comment on above: Order Comment: Speci men Type: ARTERIAL BLOOD SPECIMENOrdering Facility: [facility] Address: [address] [place] [address] Performed By: #### A LLBG ####[facility] LABCLIA [id number] [place] [address] [place] Body temperature 98.42 [degF] Normal [facility] Comment on above: Order Comment: Speci men Type: ARTERIAL BLOOD SPECIMENOrdering Facility: [facility] Address: [address] [place] [address] Performed By: #### A LLBG ####[facility] LABCLIA [id number] [place] [address] [place] Calcium.ionized (Bld) [Mass/Vol] 1.08 mmol/L Normal 1.08-1.30 [facility] Comment on above: Order Comment: Speci men Type: ARTERIAL BLOOD SPECIMENOrdering Facility: [facility] Address: [address] [place] [address] Performed By: #### A LLBG ####[facility] LABCLIA [id number] [place] [address] [place] Calcium.ionized adjusted to pH 7.4 (BldA) [Moles/Vol] 1.10 mmol/L Normal 1.08-1.30 [facility] Comment on above: Order Comment: Speci men Type: ARTERIAL BLOOD SPECIMENOrdering Facility: [facility] Address: [address] [place] [address] Performed By: #### A LLBG ####[facility] LABCLIA [id number] [place] [address] [place] Carboxyhemoglobin (BldA) [Mass fraction] 0.9 % Normal 0.0-2.0 [facility] Comment on above: Order Comment: Speci men Type: ARTERIAL BLOOD SPECIMENOrdering Facility: [facility] Address: [address] [place] [address] Result Comment: Carb oxyhemoglobin Reference Range for Smokers: 2.0-8.0% Performed By: #### A LLBG ####[facility] LABCLIA [id number] [place] [address] [place] CO2 (Bld) [Partial pressure] 34 mm Hg Low 36-46 [facility] Comment on above: Order Comment: Speci men Type: ARTERIAL BLOOD SPECIMENOrdering Facility: [facility] Address: [address] [place] [address] Performed By: #### A LLBG ####[facility] LABCLIA [id number] [address] [place] CO2 adjusted to patient's actual temperature (Bld) [Partial pressure] 34 mmHg Low 36-46 [facility] Comment on above: Order Comment: Speci men Type: ARTERIAL BLOOD SPECIMENOrdering Facility: [facility] Address: [address] [place] [address] Performed By: #### A LLBG ####[facility] LABCLIA [id number] [place] [address] [place] Glucose [Mass/Vol] 153 mg/dL High 60-105 [facility] Comment on above: Order Comment: Speci men Type: ARTERIAL BLOOD SPECIMENOrdering Facility: [facility] Address: [address] [place] [address] Performed By: #### A LLBG ####[facility] LABCLIA [id number] [place] [address] [place] HCO3 (Bld) [Moles/Vol] 23 mmol/L Normal 22-26 [facility] Comment on above: Order Comment: Speci men Type: ARTERIAL BLOOD SPECIMENOrdering Facility: [facility] Address: [address] [place] [address] Performed By: #### A LLBG ####[facility] LABCLIA [id number] [place] [address] [place] Hematocrit (Bld) [Volume fraction] 46.2 % Normal 39.0-51.0 [facility] Comment on above: Order Comment: Speci men Type: ARTERIAL BLOOD SPECIMENOrdering Facility: [facility] Address: [address] [place] [address] Performed By: #### A LLBG ####[facility] LABCLIA [id number] [place] [address] [place] Hemoglobin (Bld) [Mass/Vol] 15.1 g/dL Normal 13.0-17.0 [facility] Comment on above: Order Comment: Speci men Type: ARTERIAL BLOOD SPECIMENOrdering Facility: [facility] Address: [address] [place] [address] Performed By: #### A LLBG ####[facility] LABCLIA [id number] [place] [address] [place] Lactate [Moles/Vol] 1.4 mmol/L Normal 0.5-2.2 [facility] Comment on above: Order Comment: Speci men Type: ARTERIAL BLOOD SPECIMENOrdering Facility: [facility] Address: [address] [place] [address] Performed By: #### A LLBG ####[facility] LABCLIA [id number] [place] [address] [place] LITERS 3 Liters/min Normal [facility] Comment on above: Order Comment: Speci men Type: ARTERIAL BLOOD SPECIMENOrdering Facility: [facility] Address: [address] [place] [address] Performed By: #### A LLBG ####[facility] LABCLIA [id number] [place] [id number] [place] Methemoglobin (Bld) [Mass fraction] 1.0 % Normal 0.0-1.5 [facility] Comment on above: Order Comment: Speci men Type: ARTERIAL BLOOD SPECIMENOrdering Facility: [facility] Address: [address] [place] [id number] Performed By: #### A LLBG ####[facility] LABCLIA [id number] [place] [address] [place] O2 THERAPY NC = Nasal Cannula Normal [facility] Comment on above: Order Comment: Speci men Type: ARTERIAL BLOOD SPECIMENOrdering Facility: [facility] Address: [address] [place] [id number] Performed By: #### A LLBG ####[facility] LABCLIA [id number] [place] [address] [place] Oxygen (Bld) [Partial pressure] 111 mm Hg High 85-95 [facility] Comment on above: Order Comment: Speci men Type: ARTERIAL BLOOD SPECIMENOrdering Facility: [facility] Address: [address] [place] [id number] Performed By: #### A LLBG ####[facility] LABCLIA [id number] [place] [address] [place] Oxygen adjusted to patient's actual temperature (Bld) [Partial pressure] 110 mmHg High 85-95 [facility] Comment on above: Order Comment: Speci men Type: ARTERIAL BLOOD SPECIMENOrdering Facility: [facility] Address: [address] [place] [address] Performed By: #### A LLBG ####[facility] LABCLIA [id number] [place] [id number] [place] Oxyhemoglobin (BldA) [Mass fraction] 96 % Normal 95-98 [facility] Comment on above: Order Comment: Speci men Type: ARTERIAL BLOOD SPECIMENOrdering Facility: [facility] Address: [address] [place] [address] Performed By: #### A LLBG ####[facility] LABCLIA [id number] [place] [address] [place] pH (Bld) 7.44 [pH] Normal 7.35-7.45 [facility] Comment on above: Order Comment: Speci men Type: ARTERIAL BLOOD SPECIMENOrdering Facility: [facility] Address: [address] [place] [address] Performed By: #### A LLBG ####[facility] LABIA [id number] [place] [address] [place] pH adjusted to patient's actual temperature (Bld) 7.44 Normal 7.35-7.45 [facility] Comment on above: Order Comment: Speci men Type: ARTERIAL BLOOD SPECIMENOrdering Facility: [facility] Address: [address] [place] [address] Performed By: #### A LLBG ####[facility] LABIA [id number] [place] [address] [place] Potassium [Moles/Vol] 4.0 mmol/L Normal 3.5-5.0 [facility] Comment on above: Order Comment: Speci men Type: ARTERIAL BLOOD SPECIMENOrdering Facility: [facility] Address: [address] [place] [address] Performed By: #### A LLBG ####[facility] LABIA [id number] [place] [address] [place] Sodium [Moles/Vol] 133 mmol/L Low 136-144 [facility] Comment on above: Order Comment: Speci men Type: ARTERIAL BLOOD SPECIMENOrdering Facility: [facility] Address: [address] [place] [address] Performed By: #### A LLBG ####[facility] LABIA [id number] [place] [address] [place] Base deficit (BldA) [Moles/Vol] -1 mmol/L Normal -2-0 [facility] Comment on above: Order Comment: Speci men Type: ARTERIAL BLOOD SPECIMENOrdering Facility: [facility] Address: [address] [place] [address] Performed By: #### A LLBG ####[facility] LABCLIA [id number] [place] [address] [place] Body temperature 98.6 [degF] Normal [facility] Comment on above: Order Comment: Speci men Type: ARTERIAL BLOOD SPECIMENOrdering Facility: [facility] Address: [address] [place] [address] Performed By: #### A LLBG ####[facility] LABCLIA [id number] [place] [address] [place] Calcium.ionized (Bld) [Mass/Vol] 1.13 mmol/L Normal 1.08-1.30 [facility] Comment on above: Order Comment: Speci men Type: ARTERIAL BLOOD SPECIMENOrdering Facility: [facility] Address: [address] [place] [address] Performed By: #### A LLBG ####[facility] LABIA [id number] [place] [address] [place] Calcium.ionized adjusted to pH 7.4 (BldA) [Moles/Vol] 1.15 mmol/L Normal 1.08-1.30 [facility] Comment on above: Order Comment: Speci men Type: ARTERIAL BLOOD SPECIMENOrdering Facility: [facility] Address: [address] [place] [address] Performed By: #### A LLBG ####[facility] LABCLIA [id number] [place] [address] [place] Carboxyhemoglobin (BldA) [Mass fraction] 0.9 % Normal 0.0-2.0 [facility] Comment on above: Order Comment: Speci men Type: ARTERIAL BLOOD SPECIMENOrdering Facility: [facility] Address: [address] [place] [address] Result Comment: Carb oxyhemoglobin Reference Range for Smokers: 2.0-8.0% Performed By: #### A LLBG ####[facility] LABCLIA [id number] [place] [address] [place] CO2 (Bld) [Partial pressure] 33 mm Hg Low 36-46 [facility] Comment on above: Order Comment: Speci men Type: ARTERIAL BLOOD SPECIMENOrdering Facility: [facility] Address: [address] [place] [address] Performed By: #### A LLBG ####[facility] LABCLIA [id number] [place] [address] [place] Glucose [Mass/Vol] 146 mg/dL High 60-105 [facility] Comment on above: Order Comment: Speci men Type: ARTERIAL BLOOD SPECIMENOrdering Facility: [facility] Address: [address] [place] [address] Performed By: #### A LLBG ####[facility] LABCLIA [id number] [place] [address] [place] HCO3 (Bld) [Moles/Vol] 22 mmol/L Normal 22-26 [facility] Comment on above: Order Comment: Speci men Type: ARTERIAL BLOOD SPECIMENOrdering Facility: [facility] Address: [address] [place] [address] Performed By: #### A LLBG ####[facility] LABCLIA [id number] [place] [address] [place] Hematocrit (Bld) [Volume fraction] 45.3 % Normal 39.0-51.0 [facility] Comment on above: Order Comment: Speci men Type: ARTERIAL BLOOD SPECIMENOrdering Facility: [facility] Address: [address] [place] [address] Performed By: #### A LLBG ####[facility] LABCLIA [id number] [place] [address] [place] Hemoglobin (Bld) [Mass/Vol] 14.8 g/dL Normal 13.0-17.0 [facility] Comment on above: Order Comment: Speci men Type: ARTERIAL BLOOD SPECIMENOrdering Facility: [facility] Address: [address] [place] [address] Performed By: #### A LLBG ####[facility] LABCLIA [id number] [place] [address] [place] Lactate [Moles/Vol] 2.1 mmol/L Normal 0.5-2.2 [facility] Comment on above: Order Comment: Speci men Type: ARTERIAL BLOOD SPECIMENOrdering Facility: [facility] Address: [address] [place] [address] Performed By: #### A LLBG ####[facility] LABIA [id number] [place] [address] [place] Methemoglobin (Bld) [Mass fraction] 1.1 % Normal 0.0-1.5 [facility] Comment on above: Order Comment: Speci men Type: ARTERIAL BLOOD SPECIMENOrdering Facility: [facility] Address: [address] [place] [address] Performed By: #### A LLBG ####[facility] LABIA [id number] [place] [address] [place] O2 THERAPY NC = Nasal Cannula Normal [facility] Comment on above: Order Comment: Speci men Type: ARTERIAL BLOOD SPECIMENOrdering Facility: [facility] Address: [address] [place] [address] Performed By: #### A LLBG ####[facility] LABIA [id number] [place] [address] [place] Oxygen (Bld) [Partial pressure] 145 mm Hg High 85-95 [facility] Comment on above: Order Comment: Speci men Type: ARTERIAL BLOOD SPECIMENOrdering Facility: [facility] Address: [address] [place] [address] Performed By: #### A LLBG ####[facility] LABCLIA [id number] [place] [address] [place] Oxyhemoglobin (BldA) [Mass fraction] 97 % Normal 95-98 [facility] Comment on above: Order Comment: Speci men Type: ARTERIAL BLOOD SPECIMENOrdering Facility: [facility] Address: [address] [place] [address] Performed By: #### A LLBG ####[facility] LABIA [id number] [place] [address] [place] pH (Bld) 7.43 [pH] Normal 7.35-7.45 [facility] Comment on above: Order Comment: Speci men Type: ARTERIAL BLOOD SPECIMENOrdering Facility: [facility] Address: [address] [place] [address] Performed By: #### A LLBG ####[facility] LABIA [id number] [place] [address] [place] Potassium [Moles/Vol] 4.2 mmol/L Normal 3.5-5.0 [facility] Comment on above: Order Comment: Speci men Type: ARTERIAL BLOOD SPECIMENOrdering Facility: [facility] Address: [address] [place] [address] Performed By: #### A LLBG ####[facility] LABCLIA [id number] [place] [address] [place] Sodium [Moles/Vol] 134 mmol/L Low 136-144 [facility] Comment on above: Order Comment: Speci men Type: ARTERIAL BLOOD SPECIMENOrdering Facility: [facility] Address: [address] [place] [address] Performed By: #### A LLBG ####[facility] LABCLIA [id number] [place] [address] [place] Base deficit (BldA) [Moles/Vol] -2 mmol/L Normal -2-0 [facility] Comment on above: Order Comment: Speci men Type: ARTERIAL BLOOD SPECIMENOrdering Facility: [facility] Address: [address] [place] [address] Performed By: #### A LLBG ####[facility] LABIA [id number] [place] [address] [place] Body temperature 98.6 [degF] Normal [facility] Comment on above: Order Comment: Speci men Type: ARTERIAL BLOOD SPECIMENOrdering Facility: [facility] Address: [address] [place] [address] Performed By: #### A LLBG ####[facility] [id number] [place] [address] [place] Calcium.ionized (Bld) [Mass/Vol] 1.11 mmol/L Normal 1.08-1.30 [facility] Comment on above: Order Comment: Speci men Type: ARTERIAL BLOOD SPECIMENOrdering Facility: [facility] Address: [address] [place] [address] Performed By: #### A LLBG ####[facility] [id number] [place] [address] [place] Calcium.ionized adjusted to pH 7.4 (BldA) [Moles/Vol] 1.10 mmol/L Normal 1.08-1.30 [facility] Comment on above: Order Comment: Speci men Type: ARTERIAL BLOOD SPECIMENOrdering Facility: [facility] Address: [address] [place] [address] Performed By: #### A LLBG ####[facility] LABIA [id number] [place] [address] [place] Carboxyhemoglobin (BldA) [Mass fraction] 0.6 % Normal 0.0-2.0 [facility] Comment on above: Order Comment: Speci men Type: ARTERIAL BLOOD SPECIMENOrdering Facility: [facility] Address: [address] [place] [address] Result Comment: Carb oxyhemoglobin Reference Range for Smokers: 2.0-8.0% Performed By: #### A LLBG ####[facility] LABCLIA [id number] [place] [address] [place] CO2 (Bld) [Partial pressure] 38 mm Hg Normal 36-46 [facility] Comment on above: Order Comment: Speci men Type: ARTERIAL BLOOD SPECIMENOrdering Facility: [facility] Address: [address] [place] [address] Performed By: #### A LLBG ####[facility] LABCLIA [id number] [place] [address] [place] Glucose [Mass/Vol] 184 mg/dL High 60-105 [facility] Comment on above: Order Comment: Speci men Type: ARTERIAL BLOOD SPECIMENOrdering Facility: [facility] Address: [address] [place] [address] Performed By: #### A LLBG ####[facility] LABCLIA [id number] [place] [address] [place] HCO3 (Bld) [Moles/Vol] 22 mmol/L Normal 22-26 [facility] Comment on above: Order Comment: Speci men Type: ARTERIAL BLOOD SPECIMENOrdering Facility: [facility] Address: [address] [place] [address] Performed By: #### A LLBG ####[facility] LABCLIA [id number] [place] [address] [place] Hematocrit (Bld) [Volume fraction] 45.5 % Normal 39.0-51.0 [facility] Comment on above: Order Comment: Speci men Type: ARTERIAL BLOOD SPECIMENOrdering Facility: [facility] Address: [address] [place] [address] Performed By: #### A LLBG ####[facility] LABCLIA [id number] [place] [address] [place] Hemoglobin (Bld) [Mass/Vol] 14.8 g/dL Normal 13.0-17.0 [facility] Comment on above: Order Comment: Speci men Type: ARTERIAL BLOOD SPECIMENOrdering Facility: [facility] Address: [address] [place] [address] Performed By: #### A LLBG ####[facility] LABIA [id number] [place] [address] [place] Lactate [Moles/Vol] 2.0 mmol/L Normal 0.5-2.2 [facility] Comment on above: Order Comment: Speci men Type: ARTERIAL BLOOD SPECIMENOrdering Facility: [facility] Address: [address] [place] [address] Performed By: #### A LLBG ####[facility] LABIA [id number] [place] [address] [place] LITERS 4 Liters/min Normal [facility] Comment on above: Order Comment: Speci men Type: ARTERIAL BLOOD SPECIMENOrdering Facility: [facility] Address: [address] [place] [address] Performed By: #### A LLBG ####[facility] [id number] [place] [address] [place] Methemoglobin (Bld) [Mass fraction] 1.0 % Normal 0.0-1.5 [facility] Comment on above: Order Comment: Speci men Type: ARTERIAL BLOOD SPECIMENOrdering Facility: [facility] Address: [address] [place] [address] Performed By: #### A LLBG ####[facility] LABIA [id number] [place] [address] [place] O2 THERAPY NC = Nasal Cannula Normal [facility] Comment on above: Order Comment: Speci men Type: ARTERIAL BLOOD SPECIMENOrdering Facility: [facility] Address: [address] [place] [address] Performed By: #### A LLBG ####[facility] LABCLIA [id number] [place] [address] [place] Oxygen (Bld) [Partial pressure] 103 mm Hg High 85-95 [facility] Comment on above: Order Comment: Speci men Type: ARTERIAL BLOOD SPECIMENOrdering Facility: [facility] Address: [address] [place] [address] Performed By: #### A LLBG ####[facility] LABCLIA [id number] [place] [address] [place] Oxyhemoglobin (BldA) [Mass fraction] 96 % Normal 95-98 [facility] Comment on above: Order Comment: Speci men Type: ARTERIAL BLOOD SPECIMENOrdering Facility: [facility] Address: [address] [place] [address] Performed By: #### A LLBG ####[facility] LABCLIA [id number] [place] [address] [place] pH (Bld) 7.38 [pH] Normal 7.35-7.45 [facility] Comment on above: Order Comment: Speci men Type: ARTERIAL BLOOD SPECIMENOrdering Facility: [facility] Address: [address] [place] [address] Performed By: #### A LLBG ####[facility] LABCLIA [id number] [place] [address] [place] Potassium [Moles/Vol] 3.8 mmol/L Normal 3.5-5.0 [facility] Comment on above: Order Comment: Speci men Type: ARTERIAL BLOOD SPECIMENOrdering Facility: [facility] Address: [address] [place] [address] Performed By: #### A LLBG ####[facility] LABCLIA [id number] [place] [address] [place] Sodium [Moles/Vol] 133 mmol/L Low 136-144 [facility] Comment on above: Order Comment: Speci men Type: ARTERIAL BLOOD SPECIMENOrdering Facility: [facility] Address: [address] [place] [address] Performed By: #### A LLBG ####[facility] LABCLIA [id number] [place] [address] [place] Base deficit (BldA) [Moles/Vol] -1 mmol/L Normal -2-0 [facility] Comment on above: Order Comment: Speci men Type: ARTERIAL BLOOD SPECIMENOrdering Facility: [facility] Address: [address] [place] [address] Performed By: #### A LLBG ####[facility] LABCLIA [id number] [place] [address] [place] Body temperature 98.6 [degF] Normal [facility] Comment on above: Order Comment: Speci men Type: ARTERIAL BLOOD SPECIMENOrdering Facility: [facility] Address: [address] [place] [address] Performed By: #### A LLBG ####[facility] LABCLIA [id number] [place] [address] [place] Calcium.ionized (Bld) [Mass/Vol] 1.13 mmol/L Normal 1.08-1.30 [facility] Comment on above: Order Comment: Speci men Type: ARTERIAL BLOOD SPECIMENOrdering Facility: [facility] Address: [address] [place] [address] Performed By: #### A LLBG ####[facility] LABCLIA [id number] [place] [address] [place] Calcium.ionized adjusted to pH 7.4 (BldA) [Moles/Vol] 1.20 mmol/L Normal 1.08-1.30 [facility] Comment on above: Order Comment: Speci men Type: ARTERIAL BLOOD SPECIMENOrdering Facility: [facility] Address: [address] [place] [address] Performed By: #### A LLBG ####[facility] LABCLIA [id number] [place] [address] [place] Carboxyhemoglobin (BldA) [Mass fraction] 0.9 % Normal 0.0-2.0 [facility] Comment on above: Order Comment: Speci men Type: ARTERIAL BLOOD SPECIMENOrdering Facility: [facility] Address: [address] [place] [address] Result Comment: Carb oxyhemoglobin Reference Range for Smokers: 2.0-8.0% Performed By: #### A LLBG ####[facility] LABCLIA [id number] [place] [address] [place] CO2 (Bld) [Partial pressure] 25 mm Hg Low 36-46 [facility] Comment on above: Order Comment: Speci men Type: ARTERIAL BLOOD SPECIMENOrdering Facility: [facility] Address: [address] [place] [address] Performed By: #### A LLBG ####[facility] LABCLIA [id number] [place] [address] [place] Glucose [Mass/Vol] 130 mg/dL High 60-105 [facility] Comment on above: Order Comment: Speci men Type: ARTERIAL BLOOD SPECIMENOrdering Facility: [facility] Address: [address] [place] [address] Performed By: #### A LLBG ####[facility] LABCLIA [id number] [place] [address] [place] HCO3 (Bld) [Moles/Vol] 20 mmol/L Low 22-26 [facility] Comment on above: Order Comment: Speci men Type: ARTERIAL BLOOD SPECIMENOrdering Facility: [facility] Address: [address] [place] [address] Performed By: #### A LLBG ####[facility] LABCLIA [id number] [place] [address] [place] Hematocrit (Bld) [Volume fraction] 47.3 % Normal 39.0-51.0 [facility] Comment on above: Order Comment: Speci men Type: ARTERIAL BLOOD SPECIMENOrdering Facility: [facility] Address: [address] [place] [address] Performed By: #### A LLBG ####[facility] LABIA [id number] [place] [address] [place] Hemoglobin (Bld) [Mass/Vol] 15.5 g/dL Normal 13.0-17.0 [facility] Comment on above: Order Comment: Speci men Type: ARTERIAL BLOOD SPECIMENOrdering Facility: [facility] Address: [address] [place] [address] Performed By: #### A LLBG ####[facility] LABIA [id number] [place] [address] [place] Lactate [Moles/Vol] 2.6 mmol/L High 0.5-2.2 [facility] Comment on above: Order Comment: Speci men Type: ARTERIAL BLOOD SPECIMENOrdering Facility: [facility] Address: [address] [place] [address] Performed By: #### A LLBG ####[facility] LABIA [id number] [place] [address] [place] Methemoglobin (Bld) [Mass fraction] 1.1 % Normal 0.0-1.5 [facility] Comment on above: Order Comment: Speci men Type: ARTERIAL BLOOD SPECIMENOrdering Facility: [facility] Address: [address] [place] [address] Performed By: #### A LLBG ####[facility] LABIA [id number] [place] [address] [place] O2 THERAPY VENT=Ventilator Normal [facility] Comment on above: Order Comment: Speci men Type: ARTERIAL BLOOD SPECIMENOrdering Facility: [facility] Address: [address] [place] [address] Result Comment: cpap - ps Performed By: #### A LLBG ####[facility] LABCLIA [id number] [place] [address] [place] Oxygen (Bld) [Partial pressure] 172 mm Hg High 85-95 [facility] Comment on above: Order Comment: Speci men Type: ARTERIAL BLOOD SPECIMENOrdering Facility: [facility] Address: [address] [place] [address] Performed By: #### A LLBG ####[facility] LABCLIA [id number] [place] [address] [place] Oxyhemoglobin (BldA) [Mass fraction] 97 % Normal 95-98 [facility] Comment on above: Order Comment: Speci men Type: ARTERIAL BLOOD SPECIMENOrdering Facility: [facility] Address: [address] [place] [address] Performed By: #### A LLBG ####[facility] LABCLIA [id number] [place] [address] [place] pH (Bld) 7.53 [pH] High 7.35-7.45 [facility] Comment on above: Order Comment: Speci men Type: ARTERIAL BLOOD SPECIMENOrdering Facility: [facility] Address: [address] [place] [address] Performed By: #### A LLBG ####[facility] LABCLIA [id number] [place] [address] [place] Potassium [Moles/Vol] 4.2 mmol/L Normal 3.5-5.0 [facility] Comment on above: Order Comment: Speci men Type: ARTERIAL BLOOD SPECIMENOrdering Facility: [facility] Address: [address] [place] [address] Performed By: #### A LLBG ####[facility] LABCLIA [id number] [place] [address] [place] Sodium [Moles/Vol] 133 mmol/L Low 136-144 [facility] Comment on above: Order Comment: Speci men Type: ARTERIAL BLOOD SPECIMENOrdering Facility: [facility] Address: [address] [place] [address] Performed By: #### A LLBG ####[facility] LABCLIA [id number] [place] [address] [place] Base deficit (BldA) [Moles/Vol] -2 mmol/L Normal -2-0 [facility] Comment on above: Order Comment: Speci men Type: ARTERIAL BLOOD SPECIMENOrdering Facility: [facility] Address: [address] [place] [address] Performed By: #### A LLBG ####[facility] LABIA [id number] [place] [address] [place] Body temperature 98.06 [degF] Normal [facility] Comment on above: Order Comment: Speci men Type: ARTERIAL BLOOD SPECIMENOrdering Facility: [facility] Address: [address] [place] [address] Performed By: #### A LLBG ####[facility] LABIA [id number] [place] [address] [place] Calcium.ionized (Bld) [Mass/Vol] 1.18 mmol/L Normal 1.08-1.30 [facility] Comment on above: Order Comment: Speci men Type: ARTERIAL BLOOD SPECIMENOrdering Facility: [facility] Address: [address] [place] [address] Performed By: #### A LLBG ####[facility] LABCLIA [id number] [place] [address] [place] Calcium.ionized adjusted to pH 7.4 (BldA) [Moles/Vol] 1.19 mmol/L Normal 1.08-1.30 [facility] Comment on above: Order Comment: Speci men Type: ARTERIAL BLOOD SPECIMENOrdering Facility: [facility] Address: [address] [place] [address] Performed By: #### A LLBG ####[facility] LABCLIA [id number] [place] [address] [place] Carboxyhemoglobin (BldA) [Mass fraction] 1.3 % Normal 0.0-2.0 [facility] Comment on above: Order Comment: Speci men Type: ARTERIAL BLOOD SPECIMENOrdering Facility: [facility] Address: [address] [place] [address] Result Comment: Carb oxyhemoglobin Reference Range for Smokers: 2.0-8.0% Performed By: #### A LLBG ####[facility] LABCLIA [id number] [place] [address] [place] CO2 (Bld) [Partial pressure] 36 mm Hg Normal 36-46 [facility] Comment on above: Order Comment: Speci men Type: ARTERIAL BLOOD SPECIMENOrdering Facility: [facility] Address: [address] [place] [address] Performed By: #### A LLBG ####[facility] LABCLIA [id number] [place] [address] [place] CO2 adjusted to patient's actual temperature (Bld) [Partial pressure] 35 mmHg Low 36-46 [facility] Comment on above: Order Comment: Speci men Type: ARTERIAL BLOOD SPECIMENOrdering Facility: [facility] Address: [address] [place] [address] Performed By: #### A LLBG ####[facility] LABCLIA [id number] [place] [address] [place] Glucose [Mass/Vol] 150 mg/dL High 60-105 [facility] Comment on above: Order Comment: Speci men Type: ARTERIAL BLOOD SPECIMENOrdering Facility: [facility] Address: [address] [place] [address] Performed By: #### A LLBG ####[facility] LABCLIA [id number] [place] [address] [place] HCO3 (Bld) [Moles/Vol] 22 mmol/L Normal 22-26 [facility] Comment on above: Order Comment: Speci men Type: ARTERIAL BLOOD SPECIMENOrdering Facility: [facility] Address: [address] [place] [address] Performed By: #### A LLBG ####[facility] LABCLIA [id number] [place] [address] [place] Hematocrit (Bld) [Volume fraction] 42.6 % Normal 39.0-51.0 [facility] Comment on above: Order Comment: Speci men Type: ARTERIAL BLOOD SPECIMENOrdering Facility: [facility] Address: [address] [place] [address] Performed By: #### A LLBG ####[facility] LABCLIA [id number] [place] [address] [place] Hemoglobin (Bld) [Mass/Vol] 13.9 g/dL Normal 13.0-17.0 [facility] Comment on above: Order Comment: Speci men Type: ARTERIAL BLOOD SPECIMENOrdering Facility: [facility] Address: [address] [place] [address] Performed By: #### A LLBG ####[facility] LABCLIA [id number] [place] [address] [place] Lactate [Moles/Vol] 2.8 mmol/L High 0.5-2.2 [facility] Comment on above: Order Comment: Speci men Type: ARTERIAL BLOOD SPECIMENOrdering Facility: [facility] Address: [address] [place] [address] Performed By: #### A LLBG ####[facility] LABCLIA [id number] [address] [address] [place] Methemoglobin (Bld) [Mass fraction] 0.7 % Normal 0.0-1.5 [facility] Comment on above: Order Comment: Speci men Type: ARTERIAL BLOOD SPECIMENOrdering Facility: [facility] Address: [address] [id number] Performed By: #### A LLBG ####[facility] LABCLIA [id number] [place] [id number] [place] O2 THERAPY VENT=Ventilator Normal [facility] Comment on above: Order Comment: Speci men Type: ARTERIAL BLOOD SPECIMENOrdering Facility: [facility] Address: [address] [id number] Performed By: #### A LLBG ####[facility] LABCLIA [id number] [place] [id number] [place] Oxygen (Bld) [Partial pressure] 103 mm Hg High 85-95 [facility] Comment on above: Order Comment: Speci men Type: ARTERIAL BLOOD SPECIMENOrdering Facility: [facility] Address: [address] [id number] Performed By: #### A LLBG ####[facility] LABCLIA [id number] [place] [id number] [place] Oxygen adjusted to patient's actual temperature (Bld) [Partial pressure] 102 mmHg High 85-95 [facility] Comment on above: Order Comment: Speci men Type: ARTERIAL BLOOD SPECIMENOrdering Facility: [facility] Address: [address] [place] [address] Performed By: #### A LLBG ####[facility] LABCLIA [id number] [place] [id number] [place] Oxyhemoglobin (BldA) [Mass fraction] 96 % Normal 95-98 [facility] Comment on above: Order Comment: Speci men Type: ARTERIAL BLOOD SPECIMENOrdering Facility: [facility] Address: [address] [id number] Performed By: #### A LLBG ####[facility] LABCLIA [id number] [place] [address] [place] pH (Bld) 7.41 [pH] Normal 7.35-7.45 [facility] Comment on above: Order Comment: Speci men Type: ARTERIAL BLOOD SPECIMENOrdering Facility: [facility] Address: [address] [place] [address] Performed By: #### A LLBG ####[facility] LABIA [id number] [place] [address] [place] pH adjusted to patient's actual temperature (Bld) 7.41 Normal 7.35-7.45 [facility] Comment on above: Order Comment: Speci men Type: ARTERIAL BLOOD SPECIMENOrdering Facility: [facility] Address: [address] [place] [address] Performed By: #### A LLBG ####[facility] LABIA [id number] [place] [address] [place] Potassium [Moles/Vol] 3.9 mmol/L Normal 3.5-5.0 [facility] Comment on above: Order Comment: Speci men Type: ARTERIAL BLOOD SPECIMENOrdering Facility: [facility] Address: [address] [place] [address] Performed By: #### A LLBG ####[facility] LABIA [id number] [place] [address] [place] Sodium [Moles/Vol] 134 mmol/L Low 136-144 [facility] Comment on above: Order Comment: Speci men Type: ARTERIAL BLOOD SPECIMENOrdering Facility: [facility] Address: [address] [place] [address] Performed By: #### A LLBG ####[facility] LABIA [id number] [place] [address] [place] Base deficit (BldA) [Moles/Vol] -2 mmol/L Normal -2-0 [facility] Comment on above: Order Comment: Speci men Type: ARTERIAL BLOOD SPECIMENOrdering Facility: [facility] Address: [address] [place] [address] Performed By: #### A LLBG ####[facility] LABCLIA [id number] [place] [address] [place] Calcium.ionized (Bld) [Mass/Vol] 1.34 mmol/L High 1.08-1.30 [facility] Comment on above: Order Comment: Speci men Type: ARTERIAL BLOOD SPECIMENOrdering Facility: [facility] Address: [address] [place] [address] Performed By: #### A LLBG ####[facility] LABCLIA [id number] [place] [address] [place] Calcium.ionized adjusted to pH 7.4 (BldA) [Moles/Vol] 1.31 mmol/L High 1.08-1.30 [facility] Comment on above: Order Comment: Speci men Type: ARTERIAL BLOOD SPECIMENOrdering Facility: [facility] Address: [address] [place] [address] Performed By: #### A LLBG ####[facility] LABCLIA [id number] [place] [address] [place] Carboxyhemoglobin (BldA) [Mass fraction] 1.0 % Normal 0.0-2.0 [facility] Comment on above: Order Comment: Speci men Type: ARTERIAL BLOOD SPECIMENOrdering Facility: [facility] Address: [address] [place] [address] Result Comment: Carb oxyhemoglobin Reference Range for Smokers: 2.0-8.0% Performed By: #### A LLBG ####[facility] LABCLIA [id number] [place] [address] [place] CO2 (Bld) [Partial pressure] 41 mm Hg Normal 36-46 [facility] Comment on above: Order Comment: Speci men Type: ARTERIAL BLOOD SPECIMENOrdering Facility: [facility] Address: [address] [place] [address] Performed By: #### A LLBG ####[facility] LABCLIA [id number] [place] [address] [place] CO2 adjusted to patient's actual temperature (Bld) [Partial pressure] 41 mmHg Normal 36-46 [facility] Comment on above: Order Comment: Speci men Type: ARTERIAL BLOOD SPECIMENOrdering Facility: [facility] Address: [address] [place] [address] Performed By: #### A LLBG ####[facility] LABCLIA [id number] [place] [address] [place] Glucose [Mass/Vol] 204 mg/dL High 60-105 [facility] Comment on above: Order Comment: Speci men Type: ARTERIAL BLOOD SPECIMENOrdering Facility: [facility] Address: [address] [place] [address] Performed By: #### A LLBG ####[facility] LABCLIA [id number] [place] [address] [place] HCO3 (Bld) [Moles/Vol] 22 mmol/L Normal 22-26 [facility] Comment on above: Order Comment: Speci men Type: ARTERIAL BLOOD SPECIMENOrdering Facility: [facility] Address: [address] [place] [address] Performed By: #### A LLBG ####[facility] LABCLIA [id number] [place] [address] [place] Hematocrit (Bld) [Volume fraction] 37.0 % Low 39.0-51.0 [facility] Comment on above: Order Comment: Speci men Type: ARTERIAL BLOOD SPECIMENOrdering Facility: [facility] Address: [address] [place] [address] Performed By: #### A LLBG ####[facility] LABCLIA [id number] [place] [address] [place] Hemoglobin (Bld) [Mass/Vol] 12.0 g/dL Low 13.0-17.0 [facility] Comment on above: Order Comment: Speci men Type: ARTERIAL BLOOD SPECIMENOrdering Facility: [facility] Address: [address] [place] [address] Performed By: #### A LLBG ####[facility] LABCLIA [id number] [place] [address] [place] Lactate [Moles/Vol] 1.7 mmol/L Normal 0.5-2.2 [facility] Comment on above: Order Comment: Speci men Type: ARTERIAL BLOOD SPECIMENOrdering Facility: [facility] Address: [address] [place] [address] Performed By: #### A LLBG ####[facility] LABIA [id number] [place] [address] [place] Methemoglobin (Bld) [Mass fraction] 0.9 % Normal 0.0-1.5 [facility] Comment on above: Order Comment: Speci men Type: ARTERIAL BLOOD SPECIMENOrdering Facility: [facility] Address: [address] [place] [address] Performed By: #### A LLBG ####[facility] LABIA [id number] [place] [address] [place] Oxygen (Bld) [Partial pressure] 163 mm Hg High 85-95 [facility] Comment on above: Order Comment: Speci men Type: ARTERIAL BLOOD SPECIMENOrdering Facility: [facility] Address: [address] [place] [address] Performed By: #### A LLBG ####[facility] LABIA [id number] [place] [id number] [place] Oxygen adjusted to patient's actual temperature (Bld) [Partial pressure] 163 mmHg High 85-95 [facility] Comment on above: Order Comment: Speci men Type: ARTERIAL BLOOD SPECIMENOrdering Facility: [facility] Address: [address] [place] [address] Performed By: #### A LLBG ####[facility] LABCLIA [id number] [address] [address] [place] Oxyhemoglobin (BldA) [Mass fraction] 97 % Normal 95-98 [facility] Comment on above: Order Comment: Speci men Type: ARTERIAL BLOOD SPECIMENOrdering Facility: [facility] Address: [address] [place] [address] Performed By: #### A LLBG ####[facility] LABIA [id number] [place] [address] [place] pH (Bld) 7.35 [pH] Normal 7.35-7.45 [facility] Comment on above: Order Comment: Speci men Type: ARTERIAL BLOOD SPECIMENOrdering Facility: [facility] Address: [address] [place] [address] Performed By: #### A LLBG ####[facility] LABCLIA [id number] [place] [address] [place] pH adjusted to patient's actual temperature (Bld) 7.35 Normal 7.35-7.45 [facility] Comment on above: Order Comment: Speci men Type: ARTERIAL BLOOD SPECIMENOrdering Facility: [facility] Address: [address] [place] [address] Performed By: #### A LLBG ####[facility] LABIA [id number] [place] [address] [place] Potassium [Moles/Vol] 3.7 mmol/L Normal 3.5-5.0 [facility] Comment on above: Order Comment: Speci men Type: ARTERIAL BLOOD SPECIMENOrdering Facility: [facility] Address: [address] [place] [address] Performed By: #### A LLBG ####[facility] LABCLIA [id number] [place] [address] [place] Sodium [Moles/Vol] 133 mmol/L Low 136-144 [facility] Comment on above: Order Comment: Speci men Type: ARTERIAL BLOOD SPECIMENOrdering Facility: [facility] Address: [address] [place] [address] Performed By: #### A LLBG ####[facility] LABCLIA [id number] [place] [address] [place] Base deficit (BldA) [Moles/Vol] -3 mmol/L Low -2-0 [facility] Comment on above: Order Comment: Speci men Type: ARTERIAL BLOOD SPECIMENOrdering Facility: [facility] Address: [address] [place] [address] Performed By: #### A LLBG ####[facility] LABIA [id number] [place] [address] [place] Calcium.ionized (Bld) [Mass/Vol] 1.04 mmol/L Low 1.08-1.30 [facility] Comment on above: Order Comment: Speci men Type: ARTERIAL BLOOD SPECIMENOrdering Facility: [facility] Address: [address] [place] [address] Performed By: #### A LLBG ####[facility] LABIA [id number] [place] [address] [place] Calcium.ionized adjusted to pH 7.4 (BldA) [Moles/Vol] 1.00 mmol/L Low 1.08-1.30 [facility] Comment on above: Order Comment: Speci men Type: ARTERIAL BLOOD SPECIMENOrdering Facility: [facility] Address: [address] [place] [address] Performed By: #### A LLBG ####[facility] LABIA [id number] [place] [address] [place] Carboxyhemoglobin (BldA) [Mass fraction] 0.6 % Normal 0.0-2.0 [facility] Comment on above: Order Comment: Speci men Type: ARTERIAL BLOOD SPECIMENOrdering Facility: [facility] Address: [address] [place] [address] Result Comment: Carb oxyhemoglobin Reference Range for Smokers: 2.0-8.0% Performed By: #### A LLBG ####[facility] LABCLIA [id number] [place] [address] [place] CO2 (Bld) [Partial pressure] 44 mm Hg Normal 36-46 [facility] Comment on above: Order Comment: Speci men Type: ARTERIAL BLOOD SPECIMENOrdering Facility: [facility] Address: [address] [place] [address] Performed By: #### A LLBG ####[facility] LABCLIA [id number] [address] [place] CO2 adjusted to patient's actual temperature (Bld) [Partial pressure] 44 mmHg Normal 36-46 [facility] Comment on above: Order Comment: Speci men Type: ARTERIAL BLOOD SPECIMENOrdering Facility: [facility] Address: [address] [place] [address] Performed By: #### A LLBG ####[facility] LABCLIA [id number] [place] [address] [place] Glucose [Mass/Vol] 204 mg/dL High 60-105 [facility] Comment on above: Order Comment: Speci men Type: ARTERIAL BLOOD SPECIMENOrdering Facility: [facility] Address: [address] [place] [address] Performed By: #### A LLBG ####[facility] LABCLIA [id number] [place] [address] [place] HCO3 (Bld) [Moles/Vol] 23 mmol/L Normal 22-26 [facility] Comment on above: Order Comment: Speci men Type: ARTERIAL BLOOD SPECIMENOrdering Facility: [facility] Address: [address] [place] [address] Performed By: #### A LLBG ####[facility] LABCLIA [id number] [place] [address] [place] Hematocrit (Bld) [Volume fraction] 33.0 % Low 39.0-51.0 [facility] Comment on above: Order Comment: Speci men Type: ARTERIAL BLOOD SPECIMENOrdering Facility: [facility] Address: [address] [place] [address] Performed By: #### A LLBG ####[facility] LABCLIA [id number] [place] [address] [place] Hemoglobin (Bld) [Mass/Vol] 10.7 g/dL Low 13.0-17.0 [facility] Comment on above: Order Comment: Speci men Type: ARTERIAL BLOOD SPECIMENOrdering Facility: [facility] Address: [address] [place] [address] Performed By: #### A LLBG ####[facility] LABCLIA [id number] [place] [address] [place] Lactate [Moles/Vol] 1.7 mmol/L Normal 0.5-2.2 [facility] Comment on above: Order Comment: Speci men Type: ARTERIAL BLOOD SPECIMENOrdering Facility: [facility] Address: [address] [place] [address] Performed By: #### A LLBG ####[facility] LABCLIA [id number] [place] [address] [place] Methemoglobin (Bld) [Mass fraction] 0.8 % Normal 0.0-1.5 [facility] Comment on above: Order Comment: Speci men Type: ARTERIAL BLOOD SPECIMENOrdering Facility: [facility] Address: [address] [place] [address] Performed By: #### A LLBG ####[facility] LABCLIA [id number] [place] [id number] [place] Oxygen (Bld) [Partial pressure] 267 mm Hg High 85-95 [facility] Comment on above: Order Comment: Speci men Type: ARTERIAL BLOOD SPECIMENOrdering Facility: [facility] Address: [address] [place] [address] Performed By: #### A LLBG ####[facility] LABCLIA [id number] [place] [address] [place] Oxygen adjusted to patient's actual temperature (Bld) [Partial pressure] 267 mmHg High 85-95 [facility] Comment on above: Order Comment: Speci men Type: ARTERIAL BLOOD SPECIMENOrdering Facility: [facility] Address: [address] [place] [address] Performed By: #### A LLBG ####[facility] LABCLIA [id number] [place] [address] [place] Oxyhemoglobin (BldA) [Mass fraction] 98 % Normal 95-98 [facility] Comment on above: Order Comment: Speci men Type: ARTERIAL BLOOD SPECIMENOrdering Facility: [facility] Address: [address] [place] [address] Performed By: #### A LLBG ####[facility] LABCLIA [id number] [place] [address] [place] pH (Bld) 7.33 [pH] Low 7.35-7.45 [facility] Comment on above: Order Comment: Speci men Type: ARTERIAL BLOOD SPECIMENOrdering Facility: [facility] Address: [address] [place], [place] [id number] Performed By: #### A LLBG ####[facility] LABCLIA [id number] [place] [address] [place] pH adjusted to patient's actual temperature (Bld) 7.33 Low 7.35-7.45 [facility] Comment on above: Order Comment: Speci men Type: ARTERIAL BLOOD SPECIMENOrdering Facility: [facility] Address: [address] [place] [address] Performed By: #### A LLBG ####[facility] LABCLIA [id number] [place] [address] [place] Potassium [Moles/Vol] 4.5 mmol/L Normal 3.5-5.0 [facility] Comment on above: Order Comment: Speci men Type: ARTERIAL BLOOD SPECIMENOrdering Facility: [facility] Address: [address] [place] [address] Performed By: #### A LLBG ####[facility] LABCLIA [id number] [place] [address] [place] Sodium [Moles/Vol] 133 mmol/L Low 136-144 [facility] Comment on above: Order Comment: Speci men Type: ARTERIAL BLOOD SPECIMENOrdering Facility: [facility] Address: [address] [place] [address] Performed By: #### A LLBG ####[facility] LABCLIA [id number] [place] [address] [place] Base deficit (BldA) [Moles/Vol] -1 mmol/L Normal -2-0 [facility] Comment on above: Order Comment: Speci men Type: ARTERIAL BLOOD SPECIMENOrdering Facility: [facility] Address: [address] [place] [address] Performed By: #### A LLBG ####[facility] LABCLIA [id number] [place] [address] [place] Calcium.ionized (Bld) [Mass/Vol] 1.00 mmol/L Low 1.08-1.30 [facility] Comment on above: Order Comment: Speci men Type: ARTERIAL BLOOD SPECIMENOrdering Facility: [facility] Address: [address] [place] [address] Performed By: #### A LLBG ####[facility] LABIA [id number] [place] [address] [place] Calcium.ionized adjusted to pH 7.4 (BldA) [Moles/Vol] 0.99 mmol/L Low 1.08-1.30 [facility] Comment on above: Order Comment: Speci men Type: ARTERIAL BLOOD SPECIMENOrdering Facility: [facility] Address: [address] [place] [address] Performed By: #### A LLBG ####[facility] LABIA [id number] [place] [address] [place] Carboxyhemoglobin (BldA) [Mass fraction] 1.0 % Normal 0.0-2.0 [facility] Comment on above: Order Comment: Speci men Type: ARTERIAL BLOOD SPECIMENOrdering Facility: [facility] Address: [address] [place] [address] Result Comment: Carb oxyhemoglobin Reference Range for Smokers: 2.0-8.0% Performed By: #### A LLBG ####[facility] [id number] [place] [address] [place] CO2 (Bld) [Partial pressure] 41 mm Hg Normal 36-46 [facility] Comment on above: Order Comment: Speci men Type: ARTERIAL BLOOD SPECIMENOrdering Facility: [facility] Address: [address] [place] [address] Performed By: #### A LLBG ####[facility] LABIA [id number] [place] [address] [place] CO2 adjusted to patient's actual temperature (Bld) [Partial pressure] 41 mmHg Normal 36-46 [facility] Comment on above: Order Comment: Speci men Type: ARTERIAL BLOOD SPECIMENOrdering Facility: [facility] Address: [address] [place] [address] Performed By: #### A LLBG ####[facility] [id number] [place] [id number] [place] Glucose [Mass/Vol] 146 mg/dL High 60-105 [facility] Comment on above: Order Comment: Speci men Type: ARTERIAL BLOOD SPECIMENOrdering Facility: [facility] Address: [address] [place] [address] Performed By: #### A LLBG ####[facility] LABCLIA [id number] [place] [address] [place] HCO3 (Bld) [Moles/Vol] 24 mmol/L Normal 22-26 [facility] Comment on above: Order Comment: Speci men Type: ARTERIAL BLOOD SPECIMENOrdering Facility: [facility] Address: [address] [place] [address] Performed By: #### A LLBG ####[facility] LABCLIA [id number] [place] [address] [place] Hematocrit (Bld) [Volume fraction] 33.7 % Low 39.0-51.0 [facility] Comment on above: Order Comment: Speci men Type: ARTERIAL BLOOD SPECIMENOrdering Facility: [facility] Address: [address] [place] [address] Performed By: #### A LLBG ####[facility] LABCLIA [id number] [place] [address] [place] Hemoglobin (Bld) [Mass/Vol] 10.9 g/dL Low 13.0-17.0 [facility] Comment on above: Order Comment: Speci men Type: ARTERIAL BLOOD SPECIMENOrdering Facility: [facility] Address: [address] [place] [address] Performed By: #### A LLBG ####[facility] LABCLIA [id number] [place] [address] [place] Order Comment: Speci men Type: VENOUS BLOOD SPECIMENOrdering Facility: [facility] Address: [address] [place] [address] Performed By: #### 2 4344-4 ####[facility] LABCLIA [id number] [place] [address] [place] Lactate [Moles/Vol] 1.1 mmol/L Normal 0.5-2.2 [facility] Comment on above: Order Comment: Speci men Type: ARTERIAL BLOOD SPECIMENOrdering Facility: [facility] Address: [address] [place] [address] Performed By: #### A LLBG ####[facility] LABCLIA [id number] [place] [address] [place] Order Comment: Speci men Type: VENOUS BLOOD SPECIMENOrdering Facility: [facility] Address: [address] [place] [address] Performed By: #### 2 4344-4 ####[facility] LABCLIA [id number] [place] [address] [place] Methemoglobin (Bld) [Mass fraction] 1.5 % Normal 0.0-1.5 [facility] Comment on above: Order Comment: Speci men Type: ARTERIAL BLOOD SPECIMENOrdering Facility: [facility] Address: [address] [place] [address] Performed By: #### A LLBG ####[facility] LABCLIA [id number] [place] [id number] [place] Oxygen (Bld) [Partial pressure] 292 mm Hg High 85-95 [facility] Comment on above: Order Comment: Speci men Type: ARTERIAL BLOOD SPECIMENOrdering Facility: [facility] Address: [address] [place], [place] [id number] Performed By: #### A LLBG ####[facility] LABCLIA [id number] [place] [address] [place] Oxygen adjusted to patient's actual temperature (Bld) [Partial pressure] 292 mmHg High 85-95 [facility] Comment on above: Order Comment: Speci men Type: ARTERIAL BLOOD SPECIMENOrdering Facility: [facility] Address: [address] [place] [address] Performed By: #### A LLBG ####[facility] LABCLIA [id number] [place] [address] [place] Oxyhemoglobin (BldA) [Mass fraction] 97 % Normal 95-98 [facility] Comment on above: Order Comment: Speci men Type: ARTERIAL BLOOD SPECIMENOrdering Facility: [facility] Address: [address] [place] [address] Performed By: #### A LLBG ####[facility] LABCLIA [id number] [place] [address] [place] pH (Bld) 7.38 [pH] Normal 7.35-7.45 [facility] Comment on above: Order Comment: Speci men Type: ARTERIAL BLOOD SPECIMENOrdering Facility: [facility] Address: [address] [place] [address] Performed By: #### A LLBG ####[facility] LABCLIA [id number] [place] [address] [place] pH adjusted to patient's actual temperature (Bld) 7.38 Normal 7.35-7.45 [facility] Comment on above: Order Comment: Speci men Type: ARTERIAL BLOOD SPECIMENOrdering Facility: [facility] Address: [address] [place] [address] Performed By: #### A LLBG ####[facility] LABCLIA [id number] [place] [address] [place] Potassium [Moles/Vol] 5.7 mmol/L High 3.5-5.0 [facility] Comment on above: Order Comment: Speci men Type: ARTERIAL BLOOD SPECIMENOrdering Facility: [facility] Address: [address] [place] [address] Performed By: #### A LLBG ####[facility] LABCLIA [id number] [place] [address] [place] Sodium [Moles/Vol] 135 mmol/L Low 136-144 [facility] Comment on above: Order Comment: Speci men Type: ARTERIAL BLOOD SPECIMENOrdering Facility: [facility] Address: [address] [place] [address] Performed By: #### A LLBG ####[facility] LABIA [id number] [place] [address] [place] ARTERIAL BLOOD GASES WITH IO NIZED MAGNESIUMon 07-04-2024 Base excess Calc (Bld) [Moles/Vol] 1 mmol/L Normal 0-2 [facility] Comment on above: Order Comment: Speci men Type: ARTERIAL BLOOD SPECIMENOrdering Facility: [facility] Address: [address] [place] [address] Performed By: #### A LLMG ####[facility] [id number] [place] [address] [place] Calcium.ionized (Bld) [Mass/Vol] 1.13 mmol/L Normal 1.08-1.30 [facility] Comment on above: Order Comment: Speci men Type: ARTERIAL BLOOD SPECIMENOrdering Facility: [facility] Address: [address] [place] [address] Performed By: #### A LLMG ####[facility]IA [id number] [place] [address] [place] Calcium.ionized adjusted to pH 7.4 (BldA) [Moles/Vol] 1.14 mmol/L Normal 1.08-1.30 [facility] Comment on above: Order Comment: Speci men Type: ARTERIAL BLOOD SPECIMENOrdering Facility: [facility] Address: [address] [place] [address] Performed By: #### A LLMG ####[facility]IA [id number] [place] [address] [place] Carboxyhemoglobin (BldA) [Mass fraction] 0.8 % Normal 0.0-2.0 [facility] Comment on above: Order Comment: Speci men Type: ARTERIAL BLOOD SPECIMENOrdering Facility: [facility] Address: [address] [place] [address] Result Comment: Carb oxyhemoglobin Reference Range for Smokers: 2.0-8.0% Performed By: #### A LLMG ####[facility] LABCLIA [id number] [place] [address] [place] CO2 (Bld) [Partial pressure] 40 mm Hg Normal 36-46 [facility] Comment on above: Order Comment: Speci men Type: ARTERIAL BLOOD SPECIMENOrdering Facility: [facility] Address: [address] [place] [address] Performed By: #### A LLMG ####[facility] LABCLIA [id number] [place] [address] [place] CO2 adjusted to patient's actual temperature (Bld) [Partial pressure] 40 mmHg Normal 36-46 [facility] Comment on above: Order Comment: Speci men Type: ARTERIAL BLOOD SPECIMENOrdering Facility: [facility] Address: [address] [place] [address] Performed By: #### A LLMG ####[facility] LABCLIA [id number] [place] [address] [place] Glucose [Mass/Vol] 110 mg/dL High 60-105 [facility] Comment on above: Order Comment: Speci men Type: ARTERIAL BLOOD SPECIMENOrdering Facility: [facility] Address: [address] [place] [address] Performed By: #### A LLMG ####[facility] LABCLIA [id number] [place] [address] [place] HCO3 (Bld) [Moles/Vol] 25 mmol/L Normal 22-26 [facility] Comment on above: Order Comment: Speci men Type: ARTERIAL BLOOD SPECIMENOrdering Facility: [facility] Address: [address] [place] [address] Performed By: #### A LLMG ####[facility] LABCLIA [id number] [place] [address] [place] Hematocrit (Bld) [Volume fraction] 46.7 % Normal 39.0-51.0 [facility] Comment on above: Order Comment: Speci men Type: ARTERIAL BLOOD SPECIMENOrdering Facility: [facility] Address: [address] [place] [address] Performed By: #### A LLMG ####[facility] LABIA [id number] [place] [address] [place] Hemoglobin (Bld) [Mass/Vol] 15.3 g/dL Normal 13.0-17.0 [facility] Comment on above: Order Comment: Speci men Type: ARTERIAL BLOOD SPECIMENOrdering Facility: [facility] Address: [address] [place] [address] Performed By: #### A LLMG ####[facility] LABIA [id number] [place] [address] [place] Lactate [Moles/Vol] 1.3 mmol/L Normal 0.5-2.2 [facility] Comment on above: Order Comment: Speci men Type: ARTERIAL BLOOD SPECIMENOrdering Facility: [facility] Address: [address] [place] [address] Performed By: #### A LLMG ####[facility] LABCLIA [id number] [place] [address] [place] Magnesium [Moles/Vol] 0.64 mmol/L High 0.45-0.60 [facility] Comment on above: Order Comment: Speci men Type: ARTERIAL BLOOD SPECIMENOrdering Facility: [facility] Address: [address] [place] [address] Performed By: #### A LLMG ####[facility] LABCLIA [id number] [place] [address] [place] Methemoglobin (Bld) [Mass fraction] 0.8 % Normal 0.0-1.5 [facility] Comment on above: Order Comment: Speci men Type: ARTERIAL BLOOD SPECIMENOrdering Facility: [facility] Address: [address] [place] [address] Performed By: #### A LLMG ####[facility] LABCLIA [id number] [place] [address] [place] Oxygen (Bld) [Partial pressure] 316 mm Hg High 85-95 [facility] Comment on above: Order Comment: Speci men Type: ARTERIAL BLOOD SPECIMENOrdering Facility: [facility] Address: [address] [place] [address] Performed By: #### A LLMG ####[facility] LABCLIA [id number] [place] [address] [place] Oxygen adjusted to patient's actual temperature (Bld) [Partial pressure] 316 mmHg High 85-95 [facility] Comment on above: Order Comment: Speci men Type: ARTERIAL BLOOD SPECIMENOrdering Facility: [facility] Address: [address] [place] [address] Performed By: #### A LLMG ####[facility] LABCLIA [id number] [place] [address] [place] Oxyhemoglobin (BldA) [Mass fraction] 98 % Normal 95-98 [facility] Comment on above: Order Comment: Speci men Type: ARTERIAL BLOOD SPECIMENOrdering Facility: [facility] Address: [address] [place], [place] [address] Performed By: #### A LLMG ####[facility] LABCLIA [id number] [place] [id number] [place] pH (Bld) 7.42 [pH] Normal 7.35-7.45 [facility] Comment on above: Order Comment: Speci men Type: ARTERIAL BLOOD SPECIMENOrdering Facility: [facility] Address: [address] [place] [address] Performed By: #### A LLMG ####[facility] LABCLIA [id number] [place] [address] [place] pH adjusted to patient's actual temperature (Bld) 7.42 Normal 7.35-7.45 [facility] Comment on above: Order Comment: Speci men Type: ARTERIAL BLOOD SPECIMENOrdering Facility: [facility] Address: [address] [place] [address] Performed By: #### A LLMG ####[facility] LABIA [id number] [place] [address] [place] Potassium [Moles/Vol] 3.8 mmol/L Normal 3.5-5.0 [facility] Comment on above: Order Comment: Speci men Type: ARTERIAL BLOOD SPECIMENOrdering Facility: [facility] Address: [address] [place] [address] Performed By: #### A LLMG ####[facility] LABCLIA [id number] [place] [address] [place] Sodium [Moles/Vol] 134 mmol/L Low 136-144 [facility] Comment on above: Order Comment: Speci men Type: ARTERIAL BLOOD SPECIMENOrdering Facility: [facility] Address: [address] [place] [address] Performed By: #### A LLMG ####[facility] LABCLIA [id number] [place] [address] [place] CBC panel Auto (Bld)on 07-04 Erythrocyte distribution width (RBC) [Ratio] 12.5 % Normal 11.5-15.0 [facility] Comment on above: Order Comment: Speci men Type: BLOOD SPECIMENOrdering Facility: [facility] Address: [address] [place] [address] Performed By: #### 5 8410-2 ####[facility] LABCLIA [id number] [place] [address] [place] Hematocrit (Bld) [Volume fraction] 42.2 % Normal 39.0-51.0 [facility] Comment on above: Order Comment: Speci men Type: BLOOD SPECIMENOrdering Facility: [facility] Address: [address] [place] [address] Performed By: #### 5 8410-2 ####[facility] LABIA [id number] [place] [address] [place] Hemoglobin (Bld) [Mass/Vol] 14.8 g/dL Normal 13.0-17.0 [facility] Comment on above: Order Comment: Speci men Type: BLOOD SPECIMENOrdering Facility: [facility] Address: [address] [place] [address] Performed By: #### 5 8410-2 ####[facility] [id number] [place] [address] [place] MCH (RBC) [Entitic mass] 30.5 pg Normal 26.0-34.0 [facility] Comment on above: Order Comment: Speci men Type: BLOOD SPECIMENOrdering Facility: [facility] Address: [address] [place] [address] Performed By: #### 5 8410-2 ####[facility] LABIA [id number] [place] [address] [place] MCHC (RBC) [Mass/Vol] 35.1 g/dL Normal 30.5-36.0 [facility] Comment on above: Order Comment: Speci men Type: BLOOD SPECIMENOrdering Facility: [facility] Address: [address] [place] [address] Performed By: #### 5 8410-2 ####[facility] LABIA [id number] [place] [address] [place] MCV (RBC) [Entitic vol] 86.8 fL Normal 80.0-100.0 [facility] Comment on above: Order Comment: Speci men Type: BLOOD SPECIMENOrdering Facility: [facility] Address: [address] [place] [address] Performed By: #### 5 8410-2 ####[facility] LABCLIA [id number] [place] [address] [place] Nucleated RBC (Bld) [#/Vol] 10*3/uL Normal <0.01 [facility] Comment on above: Order Comment: Speci men Type: BLOOD SPECIMENOrdering Facility: [facility] Address: [address] [place] [address] Performed By: #### 5 8410-2 ####[facility] LABIA [id number] [place] [address] [place] Platelet mean volume (Bld) [Entitic vol] 11.7 fL Normal 9.0-12.7 [facility] Comment on above: Order Comment: Speci men Type: BLOOD SPECIMENOrdering Facility: [facility] Address: [address] [place] [address] Performed By: #### 5 8410-2 ####[facility] LABIA [id number] [place] [address] [place] Platelets (Bld) [#/Vol] 102 10*3/uL Low 150-400 [facility] Comment on above: Order Comment: Speci men Type: BLOOD SPECIMENOrdering Facility: [facility] Address: [address] [place] [address] Result Comment: Resu lts checked and verified.No clot detected. Performed By: #### 5 8410-2 ####[facility] LABIA [id number] [place] [address] [place] RBC (Bld) [#/Vol] 4.86 10*6/uL Normal 4.20-6.00 [facility] Comment on above: Order Comment: Speci men Type: BLOOD SPECIMENOrdering Facility: [facility] Address: [address] [place] [address] Performed By: #### 5 8410-2 ####[facility] LABIA [id number] [place] [address] [place] WBC (Bld) [#/Vol] 18.39 10*3/uL High 3.70-11.00 [facility] Comment on above: Order Comment: Speci men Type: BLOOD SPECIMENOrdering Facility: [facility] Address: [address] [place] [address] Performed By: #### 5 8410-2 ####[facility] LABIA [id number] [place] [address] [place] ECG COMPLETEon 07-04-2024 ECG COMPLETE Normal [facility] Gas and Carbon monoxide pane l (BldV)on 07-04-2024 BASE DEFICIT, VENOUS -1 mmol/L Normal -2-0 [facility] Comment on above: Order Comment: Speci men Type: VENOUS BLOOD SPECIMENOrdering Facility: [facility] Address: [address] [place] [address] Performed By: #### 2 4344-4 ####[facility] LABIA [id number] [place] [address] [place] Calcium.ionized (Bld) [Mass/Vol] 1.04 mmol/L Low 1.08-1.30 [facility] Comment on above: Order Comment: Speci men Type: VENOUS BLOOD SPECIMENOrdering Facility: [facility] Address: [address] [place] [address] Performed By: #### 2 4344-4 ####[facility] LABIA [id number] [place] [address] [place] Calcium.ionized adjusted to pH 7.4 (BldA) [Moles/Vol] 1.00 mmol/L Low 1.08-1.30 [facility] Comment on above: Order Comment: Speci men Type: VENOUS BLOOD SPECIMENOrdering Facility: [facility] Address: [address] [place] [id number] Performed By: #### 2 4344-4 ####[facility] LABCLIA [id number] [address] [address] [place] Carboxyhemoglobin (BldV) [Mass fraction] 0.5 % Normal 0.0-2.0 [facility] Comment on above: Order Comment: Speci men Type: VENOUS BLOOD SPECIMENOrdering Facility: [facility] Address: [address] [place] [address] Result Comment: Carb oxyhemoglobin Reference Range for Smokers: 2.0-8.0% Performed By: #### 2 4344-4 ####[facility] LABCLIA [id number] [place] [address] [place] CO2 (BldV) [Partial pressure] 48 mm[Hg] Normal 42-55 [facility] Comment on above: Order Comment: Speci men Type: VENOUS BLOOD SPECIMENOrdering Facility: [facility] Address: [address] [place] [address] Performed By: #### 2 4344-4 ####[facility] LABCLIA [id number] [place] [address] [place] CO2 adjusted to patient's actual temperature (BldV) [Partial pressure] 48 mmHg Normal 42-55 [facility] Comment on above: Order Comment: Speci men Type: VENOUS BLOOD SPECIMENOrdering Facility: [facility] Address: [address] [place] [id number] Performed By: #### 2 4344-4 ####[facility] LABCLIA [id number] [place] [address] [place] Glucose [Mass/Vol] 153 mg/dL High 60-105 [facility] Comment on above: Order Comment: Speci men Type: VENOUS BLOOD SPECIMENOrdering Facility: [facility] Address: [address] [place] [address] Performed By: #### 2 4344-4 ####[facility] LABCLIA [id number] [place] [address] [place] HCO3 (Bld) [Moles/Vol] 25 mmol/L Normal 24-28 [facility] Comment on above: Order Comment: Speci men Type: VENOUS BLOOD SPECIMENOrdering Facility: [facility] Address: [address] [place] [address] Performed By: #### 2 4344-4 ####[facility] LABIA [id number] [place] [address] [place] Hematocrit (Bld) [Volume fraction] 33.6 % Low 39.0-51.0 [facility] Comment on above: Order Comment: Speci men Type: VENOUS BLOOD SPECIMENOrdering Facility: [facility] Address: [address] [place] [address] Performed By: #### 2 4344-4 ####[facility] LABIA [id number] [place] [address] [place] Methemoglobin (Bld) [Mass fraction] 1.2 % Normal 0.0-1.5 [facility] Comment on above: Order Comment: Speci men Type: VENOUS BLOOD SPECIMENOrdering Facility: [facility] Address: [address] [place] [address] Performed By: #### 2 4344-4 ####[facility] LABIA [id number] [place] [address] [place] Oxygen (BldV) [Partial pressure] 58 mm[Hg] High 35-45 [facility] Comment on above: Order Comment: Speci men Type: VENOUS BLOOD SPECIMENOrdering Facility: [facility] Address: [address] [place] [address] Performed By: #### 2 4344-4 ####[facility] LABIA [id number] [address] [address] [place] Oxygen adjusted to patient's actual temperature (BldV) [Partial pressure] 58 mmHg High 35-45 [facility] Comment on above: Order Comment: Speci men Type: VENOUS BLOOD SPECIMENOrdering Facility: [facility] Address: [address] [place], [place] [address] Performed By: #### 2 4344-4 ####[facility] LABCLIA [id number] [place] [address] [place] Oxygen saturation in Venous blood 87 % High 60-85 [facility] Comment on above: Order Comment: Speci men Type: VENOUS BLOOD SPECIMENOrdering Facility: [facility] Address: [address] [place], [place] [address] Performed By: #### 2 4344-4 ####[facility] LABCLIA [id number] [place] [address] [place] Oxyhemoglobin (BldV) [Mass fraction] 86 % High 60-85 [facility] Comment on above: Order Comment: Speci men Type: VENOUS BLOOD SPECIMENOrdering Facility: [facility] Address: [address] [place], [place] [address] Performed By: #### 2 4344-4 ####[facility] LABCLIA [id number] [place] [address] [place] pH (BldV) 7.34 [pH] Normal 7.32-7.42 [facility] Comment on above: Order Comment: Speci men Type: VENOUS BLOOD SPECIMENOrdering Facility: [facility] Address: [address] [place], [place] [address] Performed By: #### 2 4344-4 ####[facility] LABCLIA [id number] [place] [address] [place] pH adjusted to patient's actual temperature (BldV) 7.34 Normal 7.32-7.42 [facility] Comment on above: Order Comment: Speci men Type: VENOUS BLOOD SPECIMENOrdering Facility: [facility] Address: [address] [place] [address] Performed By: #### 2 4344-4 ####[facility] LABIA [id number] [place] [address] [place] Potassium [Moles/Vol] 5.3 mmol/L High 3.5-5.0 [facility] Comment on above: Order Comment: Speci men Type: VENOUS BLOOD SPECIMENOrdering Facility: [facility] Address: [address] [place] [address] Performed By: #### 2 4344-4 ####[facility] LABIA [id number] [place] [address] [place] Sodium [Moles/Vol] 136 mmol/L Normal 136-144 [facility] Comment on above: Order Comment: Speci men Type: VENOUS BLOOD SPECIMENOrdering Facility: [facility] Address: [address] [place] [address] Performed By: #### 2 4344-4 ####[facility] [id number] [place] [address] [place] INTRAOPERATIVE ECHO PREon INTRAOPERATIVE ECHO PRE Normal C [facility] OPERATIVE NOon 07-04-2024 OPERATIVE NO Normal [facility] PT panel Coag (PPP)on 2023 INR Coag (PPP) [Relative time] 1.2 {INR} Normal 0.9-1.3 [facility] Comment on above: Order Comment: Speci men Type: BLOOD SPECIMENOrdering Facility: [facility] Address: [address] [place] [address] Result Comment: Lisa min K Antagonist (VKA) Therapeutic Range: INR 2 to 3 (Target INR of 2.5)Note: For patients treated with VKA drugs, such as warfarin, the [employer] 2012 Guideline recommends a therapeutic INR range of 2 to 3 (target INR of 2.5). This recommendation includes high-risk patients with antiphospholipid syndrome with previous arterial or venous thromboembolism, current-generation mechanical or bioprosthetic aortic heart valve replacement.Note: Patients with mechanical aortic valve replacement and additional risk factors for thromboembolic events (atrial fibrillation, previous thromboembolism, LV dysfunction, hypercoagulable conditions) or an older generation mechanical AVR (i.e., ball in-Cage) or any mechanical MVR should have a INR therapeutic range of 2.5 to 3.5 (target INR of 3).Stevie GH, et al. Chest 2012, 141:7S-47SNishimura RA, et al. [facility] 2017, 70: 252-289 Performed By: #### 3 4528-0, 72339-5 ####[facility] LABCLIA [id number] [place] [address] [place] PT Coag (PPP) [Time] 12.4 s Normal 9.7-13.0 [facility] Comment on above: Order Comment: Speci men Type: BLOOD SPECIMENOrdering Facility: [facility] Address: [address] [place] [address] Performed By: #### 3 4528-0, 13288-1 ####[facility] LABIA [id number] [address] [place] SURGICAL PATHOLOGYon 024 CASE REPORT Normal [facility] Comment on above: Order Comment: Spike funez Type: TISSUE SPECIMENOrdering Facility: [facility] Address: [address] [place] [address] Result Comment: [facility]urg [facility] Pathology Report Case: [id number] Provider: Thomas Montalvo MD Collected: 07/04/2024 09:19 AMOrdering Location: Admitting Received: 07/04/2024 11:50 AMPathologist: Simon Ulloa MDSpecimens: A) - Heart, Aortic Valve B) - Aorta Performed By: #### S ####[facility] LABCLIA [id number] [address] [place] CLINICAL HISTORY Normal [facility] Comment on above: Order Comment: Speci men Type: TISSUE SPECIMENOrdering Facility: [facility] Address: [address] [place] [address] Result Comment: Pre- op diagnosis:Moderate aortic stenosis [I35.0]Bicuspid aortic valve [Q23.1]Aortic dilatation (HCC) [I77.819]Myalgia [M79.10]Palpitation [R00.2]Bradycardia [R00.1]Celiac disease [K90.0]Aortic root dilation (HCC) [I77.810]Pre-operative cardiovascular examination [Z01.810] Performed By: #### S ####[facility] LABCLIA [id number] [address] DIAGNOSIS COMMENT Normal [facility] Comment on above: Order Comment: Speci men Type: TISSUE SPECIMENOrdering Facility: [facility] Address: [address] [place] [address] Performed By: #### S ####[facility] LABCLIA [id number] [address] FINAL DIAGNOSIS Normal [facility] Comment on above: Order Comment: Speci men Type: TISSUE SPECIMENOrdering Facility: [facility] Address: [address] [place] [address] Result Comment: A. A ortic valve, excision:- Two semilunar valve cusps with severe calcification and severe fibrosis (gross examination only).ERR/RAMY/mm/07/05/2024. Aorta, partial excision:-Elastic type artery with moderate increase of mucopolysaccharide material in the tunica media. See comment. Performed By: #### S ####[facility] LABIA [id number] [address] OF [facility] FINAL PERFORMING LAB Normal [facility] Comment on above: Order Comment: Speci men Type: TISSUE SPECIMENOrdering Facility: [facility] Address: [address] [place] [address] Result Comment: Diag nostic interpretation performed at [facility], [address] [place] [address] CLIA# [id number] Director: Christiano Carr M.D. Performed By: #### S ####[facility] LABIA [id number] [place] [address] [place] GROSS DESCRIPTION Normal [facility] Comment on above: Order Comment: Speci men Type: TISSUE SPECIMENOrdering Facility: [facility] Address: [address] [place] [address] Result Comment: Ronnie Barlow eareliecer, Aortic ValveReceived in formalin, labeled heart, aortic valve are two pieces of semilunar valve cusps measuring 1.4 to 1.5 cm in length along the free edge and 2.7 to 2.8 cm in width from free edge to base. There is severe calcifications, severe fibrosis, and Lambl's excrescences. There is no commissural fusion, fenestrations, perforations, or vegetations. No sections are submitted. The specimen is reviewed with Dr. Ulloa.Carson. AortaReceived in formalin, labeled aorta is an unorientable excision of vessel wall measuring 2.7 x 0.8 x 0.3 cm. There is no dissection plane. The adventitial surface is ecchymotic and glistening. The wall thickness measures 0.2 cm. The intimal surface is maurice-yellow and smooth. Entirely submitted in cassette B1.RAMY/mm/07/05/2024Gross examination performed at [facility], [address] [place] [address] CLIA# [id number] Performed By: #### S ####[facility] LABIA [id number] [place] [address] [place] XR CHEST 1V FRONTAL PORTon 0 07-04-2024 XR CHEST 1V FRONTAL PORT Normal [facility] aPTT PPPon 07-04-2024 aPTT Coag (PPP) [Time] 31.0 s Normal 23.0-32.4 [facility] Comment on above: Order Comment: Speci men Type: BLOOD SPECIMENOrdering Facility: [facility] Address: [address] [place] [address] Performed By: #### 3 4528-0, 39418-8 ####[facility] LABCLIA [id number] [place] [address] [place] CNCNPATEDon 07-03-2024 CNCNPATED Normal [facility] CNOVon 07-03-2024 CNOV Normal [facility] HISTORY PHYSICALon HISTORY PHYSICAL Normal [facility] STAPHYLOCOCCUS AUREUS AND MR SA SCREEN, PCR, NASALon 07-03-2024 S. aureus and MRSA panel SHANICE+probe (Nose) Not detected Normal Not Detected [facility] Comment on above: Order Comment: Speci men Type: SWABOrdering Facility: [facility] Address: [address] [place] [address] Performed By: #### S APCR ####[facility] LABCLIA [id number] [place] [address] [place] STAPHYLOCOCCUS AUREUS & MRSA SCREEN, PCR, NASALon 07-03-2024 Interpretation and review of laboratory results Normal [facility] S. aureus and MRSA panel SHANICE+probe (Nose) Not detected Not Detected [facility] US CAROTID ARTERIES Y[facility] LABon 07-03-2024 [facility] Normal [facility] Basic metabolic 2000 panelon 07-02-2024 Anion gap [Moles/Vol] 14 mmol/L Normal 8-15 [facility] Comment on above: Order Comment: Speci men Type: BLOOD SPECIMENOrdering Facility: [facility] Address: [address] [place] [address] Performed By: #### 2 4321-2 ####[facility] LABCLIA [id number] [place] [address] [place] Calcium [Mass/Vol] 9.1 mg/dL Normal 8.5-10.2 [facility] Comment on above: Order Comment: Speci men Type: BLOOD SPECIMENOrdering Facility: [facility] Address: [address] [place] [address] Performed By: #### 2 4321-2 ####[facility] LABCLIA [id number] [place] [id number] [place] Chloride [Moles/Vol] 102 mmol/L Normal 98-107 [facility] Comment on above: Order Comment: Speci men Type: BLOOD SPECIMENOrdering Facility: [facility] Address: [address] [place] [address] Performed By: #### 2 4321-2 ####[facility] LABCLIA [id number] [place] [address] [place] CO2 [Moles/Vol] 23 mmol/L Normal 22-30 [facility] Comment on above: Order Comment: Speci men Type: BLOOD SPECIMENOrdering Facility: [facility] Address: [address] [place] [address] Performed By: #### 2 4321-2 ####[facility] LABCLIA [id number] [place] [address] [place] Creatinine [Mass/Vol] 0.83 mg/dL Normal 0.73-1.22 [facility] Comment on above: Order Comment: Speci men Type: BLOOD SPECIMENOrdering Facility: [facility] Address: [address] [place] [address] Performed By: #### 2 4321-2 ####[facility] LABIA [id number] [place] [address] [place] Creatinine and Glomerular filtration rate.predicted panel (S/P/Bld) 100 mL/min/1.73m??? Normal >=60 [facility] Comment on above: Order Comment: Speci men Type: BLOOD SPECIMENOrdering Facility: [facility] Address: [address] [place] [address] Result Comment: Lorenza mated Glomerular Filtration Rate (eGFR) is calculated using the 2020 CKD-EPI creatinine equation. This equation utilizes serum creatinine, sex, and age as parameters. The creatinine assay has traceable calibration to isotope dilution-mass spectrometry. Refer to KDIGO guidelines for clinical interpretation. In patients with unstable renal function, e.g. those with acute kidney injury, the eGFR may not accurately reflect actual GFR. Performed By: #### 2 4321-2 ####[facility] LABCLIA [id number] [place] [address] [place] Glucose [Mass/Vol] 141 mg/dL High 74-99 [facility] Comment on above: Order Comment: Speci men Type: BLOOD SPECIMENOrdering Facility: [facility] Address: [address] [place] [address] Result Comment: The [place] Diabetes Association (ADA) provides guidance for cutoff values for fasting glucose and random glucose. The ADA defines fasting as no caloric intake for at least 8 hours. Fasting plasma glucose results between 100 to 125 mg/dL indicate increased risk for diabetes (prediabetes).Fasting plasma glucose results greater than or equal to 126 mg/dL meet the criteria for diagnosis of diabetes. In the absence of unequivocal hyperglycemia, results should be confirmed by repeat testing. In a patient with classic symptoms of hyperglycemia or hyperglycemic crisis, random plasma glucose results greater than or equal to 200 mg/dL meet the criteria for diagnosis of diabetes.Reference: Standards of Medical Care in Diabetes 2016, [place] [employer] Association. Diabetes Care. 2016.39(Suppl 1). Performed By: #### 2 4321-2 ####[facility] LABCLIA [id number] [place] [id number] [place] Potassium [Moles/Vol] 4.0 mmol/L Normal 3.7-5.1 [facility] Comment on above: Order Comment: Spike funez Type: BLOOD SPECIMENOrdering Facility: [facility] Address: [address] [place] [address] Performed By: #### 2 4321-2 ####[facility] LABCLIA [id number] [facility] [address] [address] [place] Sodium [Moles/Vol] 139 mmol/L Normal 136-144 [facility] Comment on above: Order Comment: Speci men Type: BLOOD SPECIMENOrdering Facility: [facility] Address: [address] [place] [address] Performed By: #### 2 4321-2 ####[facility] LABCLIA [id number] [place] [address] [place] Urea nitrogen [Mass/Vol] 22 mg/dL Normal 9-24 [facility] Comment on above: Order Comment: Speci men Type: BLOOD SPECIMENOrdering Facility: [facility] Address: [address] [place] [address] Performed By: #### 2 4321-2 ####[facility] LABCLIA [id number] [place] [address] [place] CARD CATH DIAGNOSTICon 07-02 CARD CATH DIAGNOSTIC Normal [facility] CBC panel Auto (Bld)on 07-02 Erythrocyte distribution width (RBC) [Ratio] 11.9 % Normal 11.5-15.0 [facility] Comment on above: Order Comment: Speci men Type: BLOOD SPECIMENOrdering Facility: [facility] Address: [address] [place] [address] Performed By: #### 5 8410-2 ####[facility] LABCLIA [id number] [place] [address] [place] Hematocrit (Bld) [Volume fraction] 49.1 % Normal 39.0-51.0 [facility] Comment on above: Order Comment: Speci men Type: BLOOD SPECIMENOrdering Facility: [facility] Address: [address] [place] [address] Performed By: #### 5 8410-2 ####[facility] LABCLIA [id number] [place] [address] [place] Hemoglobin (Bld) [Mass/Vol] 16.8 g/dL Normal 13.0-17.0 [facility] Comment on above: Order Comment: Speci men Type: BLOOD SPECIMENOrdering Facility: [facility] Address: [address] [place] [address] Performed By: #### 5 8410-2 ####[facility] LABIA [id number] [place] [address] [place] MCH (RBC) [Entitic mass] 30.6 pg Normal 26.0-34.0 [facility] Comment on above: Order Comment: Speci men Type: BLOOD SPECIMENOrdering Facility: [facility] Address: [address] [place] [address] Performed By: #### 5 8410-2 ####[facility] LABIA [id number] [place] [address] [place] MCHC (RBC) [Mass/Vol] 34.2 g/dL Normal 30.5-36.0 [facility] Comment on above: Order Comment: Speci men Type: BLOOD SPECIMENOrdering Facility: [facility] Address: [address] [place] [address] Performed By: #### 5 8410-2 ####[facility] LABIA [id number] [place] [address] [place] MCV (RBC) [Entitic vol] 89.4 fL Normal 80.0-100.0 [facility] Comment on above: Order Comment: Speci men Type: BLOOD SPECIMENOrdering Facility: [facility] Address: [address] [place] [address] Performed By: #### 5 8410-2 ####[facility] LABIA [id number] [place] [address] [place] Nucleated RBC (Bld) [#/Vol] 10*3/uL Normal <0.01 [facility] Comment on above: Order Comment: Speci men Type: BLOOD SPECIMENOrdering Facility: [facility] Address: [address] [place] [address] Performed By: #### 5 8410-2 ####[facility] LABCLIA [id number] [place] [address] [place] Platelet mean volume (Bld) [Entitic vol] 12.0 fL Normal 9.0-12.7 [facility] Comment on above: Order Comment: Speci men Type: BLOOD SPECIMENOrdering Facility: [facility] Address: [address] [place] [address] Performed By: #### 5 8410-2 ####[facility] [id number] [place] [address] [place] Platelets (Bld) [#/Vol] 137 10*3/uL Low 150-400 [facility] Comment on above: Order Comment: Speci men Type: BLOOD SPECIMENOrdering Facility: [facility] Address: [address] [place] [address] Result Comment: Plat elet count confirmed by manual review of peripheral blood smear. Results checked and verified.No clot detected. Performed By: #### 5 8410-2 ####[facility] [id number] [place] [address] [place] RBC (Bld) [#/Vol] 5.49 10*6/uL Normal 4.20-6.00 [facility] Comment on above: Order Comment: Speci men Type: BLOOD SPECIMENOrdering Facility: [facility] Address: [address] [place] [address] Performed By: #### 5 8410-2 ####[facility] [id number] [place] [address] [place] WBC (Bld) [#/Vol] 9.61 10*3/uL Normal 3.70-11.00 [facility] Comment on above: Order Comment: Speci men Type: BLOOD SPECIMENOrdering Facility: [facility] Address: [address] [place] [address] Result Comment: Resu lts checked and verified. Performed By: #### 5 8410-2 ####[facility] [id number] [place] [address] [place] CONFIRM BLOOD TYPEon 024 ABO B Normal [facility] Comment on above: Order Comment: Speci men Type: BLOOD SPECIMENOrdering Facility: [facility] Address: [address] [place] [address] Performed By: #### C ONABO ####[facility] BLOOD BANKCLIA [id number] [place] [address] [place] Rh Nom (Bld) Positive Normal [facility] Comment on above: Order Comment: Speci men Type: BLOOD SPECIMENOrdering Facility: [facility] Address: [address] [place] [address] Performed By: #### C ONABO ####[facility] BLOOD BANKIA [id number] [place] [address] [place] LDH SerPl-cCncon 07-02-2024 LDH [Catalytic activity/Vol] 176 U/L Normal 135-225 [facility] Comment on above: Order Comment: Speci men Type: BLOOD SPECIMENOrdering Facility: [facility] Address: [address] [place] [address] Performed By: #### 2 532-0, 15069-6, 3016-3 ####[facility] LABIA [id number] [place] [address] [place] NT-proBNP SerPl-mCncon 07-02 Natriuretic peptide.B prohormone N-Terminal [Mass/Vol] <36 Normal <125 [facility] Comment on above: Order Comment: Speci men Type: BLOOD SPECIMENOrdering Facility: [facility] Address: [address] [place] [address] Performed By: #### 2 532-0, 99483-7, 3016-3 ####[facility] LABCLIA [id number] [place] [address] [place] PT panel Coag (PPP)on 2023 INR Coag (PPP) [Relative time] 1.0 {INR} Normal 0.9-1.3 [facility] Comment on above: Order Comment: Spike funez Type: BLOOD SPECIMENOrdering Facility: [facility] Address: [address] [place] [address] Result Comment: Lisa min K Antagonist (VKA) Therapeutic Range: INR 2 to 3 (Target INR of 2.5)Note: For patients treated with VKA drugs, such as warfarin, the [place] [employer] 2012 Guideline recommends a therapeutic INR range of 2 to 3 (target INR of 2.5). This recommendation includes high-risk patients with antiphospholipid syndrome with previous arterial or venous thromboembolism, current-generation mechanical or bioprosthetic aortic heart valve replacement.Note: Patients with mechanical aortic valve replacement and additional risk factors for thromboembolic events (atrial fibrillation, previous thromboembolism, LV dysfunction, hypercoagulable conditions) or an older generation mechanical AVR (i.e., ball in-Cage) or any mechanical MVR should have a INR therapeutic range of 2.5 to 3.5 (target INR of 3).Stevie JOHNSON, et al. Chest 2012, 141:7S-47SNishimura RA, et al. JACC 2017, 70: 252-289 Performed By: #### 3 4528-0, 82397-3 ####[facility] LABIA [id number] [place] [address] [place] PT Coag (PPP) [Time] 10.9 s Normal 9.7-13.0 [facility] Comment on above: Order Comment: Spike funez Type: BLOOD SPECIMENOrdering Facility: [facility] Address: [address] [place] [address] Performed By: #### 3 4528-0, 17792-2 ####[facility] LABIA [id number] [place] [address] [place] TSH SerPl-aCncon 07-02-2024 TSH Qn 1.150 m[IU]/L Normal 0.270-4.20 0 [facility] Comment on above: Order Comment: Speci men Type: BLOOD SPECIMENOrdering Facility: [facility] Address: [address] [place] [address] Performed By: #### 2 532-0, 31203-0, 3016-3 ####[facility] LABCLIA [id number] [place] [address] [place] TYPE AND SCREEN,30 DAYon ABO B Normal [facility] Comment on above: Order Comment: Speci men Type: BLOOD SPECIMENOrdering Facility: [facility] Address: [address] [place] [address] Performed By: #### T SCR30 ####[facility] BLOOD BANKCLIA [id number] [address] STATES [facility] HISTORICAL AB SCR STATUS Negative Normal [facility] Comment on above: Order Comment: Speci men Type: BLOOD SPECIMENOrdering Facility: [facility] Address: [address] [place] [address] Performed By: #### T SCR30 ####[facility] BLOOD BANKCLIA [id number] [place] [address] [place] Rh Nom (Bld) Positive Normal [facility] Comment on above: Order Comment: Speci men Type: BLOOD SPECIMENOrdering Facility: [facility] Address: [address] [place] [address] Performed By: #### T SCR30 ####[facility] BLOOD BANKCLIA [id number] [place] [address] [place] URINALYSIS, DIPSTICK ONLYon 07-02-2024 Bilirubin Ql (U) Negative Normal Negative [facility] Comment on above: Order Comment: Speci men Type: URINE SPECIMENOrdering Facility: [facility] Address: [address] [place] [address] Performed By: #### U A ####[facility] LABCLIA [id number] [address] [place] Clarity (Unsp spec) Clear Normal Clear [facility] Comment on above: Order Comment: Speci men Type: URINE SPECIMENOrdering Facility: [facility] Address: [address] [place] [address] Performed By: #### U A ####[facility] LABCLIA [id number] [place] [address] [place] Color (U) Yellow Normal Yellow [facility] Comment on above: Order Comment: Speci men Type: URINE SPECIMENOrdering Facility: [facility] Address: [address] [place] [address] Performed By: #### U A ####[facility] LABCLIA [id number] [place] [address] [place] Glucose Test strip (U) [Mass/Vol] Negative Normal Negative [facility] Comment on above: Order Comment: Speci men Type: URINE SPECIMENOrdering Facility: [facility] Address: [address] [place] [address] Performed By: #### U A ####[facility] LABCLIA [id number] [place] [address] [place] Hemoglobin Ql (U) Negative Normal Negative [facility] Comment on above: Order Comment: Speci men Type: URINE SPECIMENOrdering Facility: [facility] Address: [address] [place] [address] Performed By: #### U A ####[facility] LABCLIA [id number] [place] [address] [place] Ketones Ql (U) Negative Normal Negative [facility] Comment on above: Order Comment: Speci men Type: URINE SPECIMENOrdering Facility: [facility] Address: [address] [place] [address] Performed By: #### U A ####[facility] LABCLIA [id number] [place] [address] [place] Leukocyte esterase Test strip Ql (U) Negative Normal Negative [facility] Comment on above: Order Comment: Speci men Type: URINE SPECIMENOrdering Facility: [facility] Address: [address] [place] [address] Performed By: #### U A ####[facility] LABIA [id number] [place] [address] [place] Nitrite Ql (U) Negative Normal Negative [facility] Comment on above: Order Comment: Speci men Type: URINE SPECIMENOrdering Facility: [facility] Address: [address] [place] [address] Performed By: #### U A ####[facility] LABIA [id number] [place] [address] [place] pH (U) 6.0 [pH] Normal <8.5 [facility] Comment on above: Order Comment: Speci men Type: URINE SPECIMENOrdering Facility: [facility] Address: [address] [place] [address] Performed By: #### U A ####[facility] LABIA [id number] [place] [address] [place] Protein (U) [Mass/Vol] Negative Normal Negative [facility] Comment on above: Order Comment: Speci men Type: URINE SPECIMENOrdering Facility: [facility] Address: [address] [place] [address] Performed By: #### U A ####[facility] LABIA [id number] [place] [address] [place] Specific gravity (U) [Rel density] 1.024 Normal 1.005-1.03 0 [facility] Comment on above: Order Comment: Speci men Type: URINE SPECIMENOrdering Facility: [facility] Address: [address] [place] [address] Performed By: #### U A ####[facility] LABIA [id number] [place] [address] [place] Urobilinogen Ql (U) 1.0 EU/dL Normal 0.2-1.0 EU/dL [facility] Comment on above: Order Comment: Speci men Type: URINE SPECIMENOrdering Facility: [facility] Address: [address] [place] [address] Performed By: #### U A ####[facility] LABIA [id number] [place] [address] [place] aPTT PPPon 07-02-2024 aPTT Coag (PPP) [Time] 26.4 s Normal 23.0-32.4 Cl [facility] Comment on above: Order Comment: Speci men Type: BLOOD SPECIMENOrdering Facility: [facility] Address: [address] [place] [address] Performed By: #### 3 4528-0, 48614-3 ####[facility] LABCLIA [id number] [place] [address] [place] CNPNon 07-01-2024 CNPN Normal [facility] CNPNon 06-27-2024 CNPN Normal [facility] CNPNon 06-26-2024 CNPN Normal [facility] CNOVon 06-24-2024 CNOV Normal [facility] CTA CHEST (GATED) W IVCONon 06-24-2024 CTA CHEST (GATED) W IVCON Normal [facility] ECG COMPLETEon 06-24-2024 ECG COMPLETE Normal [facility] CNPNon 06-19-2024 CNPN Normal [facility] Gastroenterology Visit Repor ton 04-08-2024 Gastroenterology Visit Report [facility]enterology [address] [place] [address] OFFICE VISIT Date of Service: 04/08/24 MR#: [id number] Acct: [id number] Name: THUY KIM Rep #: [id number] : 1965 Provider: Cam Gabriel DO Age/Sex: 58/M [place] [facility] [place] Status: Signed Intake Vital Signs 03/08/23 12:56 Height 6 ft Intake Visit Reasons: 6 MO FU Allergies Iodinated Contrast Media Allergy (Intermediate, Verified 03/08/23 12:55) convulsions prednisone Allergy (Intermediate, Verified 03/08/23 12:55) Other Medications ???Medication ???Instructions ???Recorded ???Confirmed ???Type levothyroxine 75 mcg tablet tablet PO 04/19/21 04/08/24 History PFSH Medical History (Updated 09/01/23 @ 07:53 by Lian Silver) Lactose intolerance Weight loss, unintentional Acute constipation Muscle weakness Abdominal pain Myalgia Fatigue Aortic stenosis Migraine-cluster headache syndrome Bicuspid aortic valve Aortic root dilation Former tobacco use Aortic aneurysm Mariana's thyroiditis Hypothyroidism Cardiac murmur Anxiety Surgical History History of medial meniscus repair of right knee History of appendectomy Family History Father Asthma Heart disease Hypertension Thyroid disorder Sister Cancer skin Uncle Throat cancer Mother Heart disease Emphysema lung Social History household members: spouse Smoking Status: Former smoker how long ago did patient quit smoking: Smoked 1 ppd x 5 years, quit 1979. alcohol intake: current alcohol intake frequency: a few times a month substance use type: does not use HPI HPI Details: THUY KIM, is a 58 M who presents to the office today for follow up. Outpatient workup: ? Colonoscopy 01.23.23 [facility] diverticulosis; internal hemorrhoids Nu[facility] ED 03.04.[address] ? [address] abd/pel hepatic cysts. Outpatient workup: EGD [facility] 03.06.23 gastritis, duodenitis. *BGI established 5.01.26 with 50lbs unintentional weight loss in the last 6 months. 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 Referred to ENT. ? Biochemical RAST WNL ? Capsule Endoscopy 04.05.23 duodenal and early small bowel changes consistent with celiac disease; small serpiginous ulcer in distal small bowel. ? Biochemical 04.14.23 CBC, ESR, CMP, LFT, CRP, LDH, GAME, NARA, ANCA, STACEY comp, celiac, IBD without pertinent abnormality. ? Globulin H2.1, albumin/globulin H2 ? Stool aexrl-2-mlzhujrojqu WNL? calprotectin H255, Lactoferrin + OV 09.01. feels he is doing better, has regained 25-30lbs. All symptoms have resolved except when he eats sugars; when this happens he will have some minimal abdominal pain, leg twitching and sole burning. OV 6.3.24 pt reports feeling well overall with no GI symptoms of concern at this time. Pt continues with gluten and dairy free diet. ROS Const Constitutional: No fatigue, fever(s) or weight change ENT ENT: No difficulty swallowing Gastro GI: No abdominal pain, belching, bloating, change in bowel habits, change in stool character, coffee ground emesis, constipation, cramping, diarrhea, heartburn, difficulty swallowing, feeling full early, excessive flatus, incontinent of stools, Vomiting blood/hematemesis, Blood in stool, loose stools, Black,tarry stools, nausea/dyspepsia, pain with swallowing, vomiting or other Musc Musculoskeletal: No joint pain Skin Skin: No yellowing of the eye or itchy eyes Psych Psychiatric: No anxiety and No depression Endo Endocrine: No fatigue or weight change Aller/Imm Allergy/Immunologic: No itchy eyes Fred/Lymp Hematologic/Lymphatic: No easy bleeding or easy bruising Exam Const General: cooperative, healthy appearing and anxious Nutritional Appearance: average body habitus Orientation: alert, awake and oriented x3 HENMT Head: normal to inspection Eyes General: appearance normal, both eyes and all related structures Neck Neck: normal visual inspection Chest Chest palpation inspection: normal inspection of the chest Resp Effort Inspection: normal respiratory effort GI Inspection: normal to inspection Palpation: soft, no hepatosplenomegaly, no masses and nontender Skin General: no rashes or lesions noted Neuro Gait: normal gait Assessment and Plan Assessment and Plan (1) Bryce (more content not included)... Normal [facility] Albumin Elph [Mass/Vol]Order ed By: Cam Gabriel on 09-01-2023 Albumin [Mass/Vol] 4.2 g/dL 2.9-4.4 [facility] Atypical perinuclear antineu trophil cytoplasmic antibodies measurementOrdered By: Cam Gabriel on 09-01-2023 Neutrophil cytoplasmic Ab.perinuclear.atypical IF (S) [Titer] <1:20 titer Neg:<1:20 [facility] Comment on above: The atypical pANCA p attern has been observed in asignificant percentage of patients with ulcerative colitis,primary sclerosing cholangitis and autoimmune hepatitis.Performed at: [facility] [employer] [id number] Director: Aman Basurto PhD, Phone: [phone] at: [facility] [id number] Director: Chong Guadarrama MD, Phone: [phone] Basophil percentageOrdered B y: Cam Gabriel on 09-01-2023 Amylase [Catalytic activity/Vol] 70 U/L 25-115 [facility] Basophil percentage < 0.2 AI 0.0-0.9 [facility] Erythrocyte sedimentation ra teOrdered By: Cam Gabriel on 09-01-2023 ESR (Bld) [Velocity] 3 mm/h 0-20 [facility] Interpretation of serum or p lasma protein pattern by immunofixation (narrative resultOrdered By: Cam Gabriel on 09-01-2023 Protein Fractions Immunofixation Sukhjinder [Interp] See comment [facility] Comment on above: Result: Not Observed Laboratory - Chemistry and C hemistry - challengeOrdered By: Cam Gabriel on 09-01-2023 Lipase [Catalytic activity/Vol] 68 U/L 13-75 [facility] Comment on above: Please note:LIPASE r evised reference range effective 23. New Lipase methodology. Expected to produce lower values than the previous assay method. NEW Reference Range: 13 - 75 U/L No Panel InformationOrdered By: Cam Gabriel on 09-01-2023 Stool Pancreatic Elastase 230 >200 [facility] Comment on above: Result Units: ug Jhoana st./g Severe Pancreatic Insufficiency: <100 Moderate Pancreatic Insufficiency: 100 - 200 Normal: >200Performed at: [facility] Lab[address] [id number] Director: Chong Guadarrama MD, Phone: [phone] Addendum Document Comment . [facility] Comment on above: Protein electrophore sis scan will follow via computer,mail, or highway technician delivery. Centromere B Antibody <0.2 AI 0.0-0.9 [facility] Endomysial IgA Antibody Negative Negative [facility] Immunoglobulin E 13 IU/mL 6-495 [facility] THERMOSTAT REPAIRER Antibody <0.2 AI 0.0-0.9 [facility] Serum DNA double strand anti body assay (units/volume)Ordered By: Cam Gabriel on 09-01-2023 DNA double strand Ab Qn (S) [IU]/mL 0-9 [facility] Comment on above: Negative <5 Equivoca l 5 - 9 Positive >9 Serum Kiarra-1 antibody assay (u nits/volume)Ordered By: Cam Gabriel on 09-01-2023 Kiarra-1 extractable nuclear Ab Qn (S) <0.2 AI 0.0-0.9 [facility] Serum Scl-70 extractable nuc lear antibody assay (units/volume)Ordered By: Cam Gabriel on 09-01-2023 SCL-70 extractable nuclear Ab Qn (S) <0.2 AI 0.0-0.9 [facility] Serum Dela Cruz extractable nucl ear antibody detectionOrdered By: Cam Gabriel on 09-01-2023 [place] extractable nuclear Ab Ql (S) <0.2 AI 0.0-0.9 [facility] Serum [id number] measu rement by electrophoresisOrdered By: Cam Gabriel on 09-01-2023 Alpha 1 globulin Elph [Mass/Vol] 0.2 g/dL 0.0-0.4 [facility] Alpha 1 globulin Elph [Mass/Vol] 0.5 g/dL 0.4-1.0 [facility] Serum classic neutrophil cyt oplasmic antibody assay (units/volume)Ordered By: Cam Gabriel on 09-01-2023 Neutrophil cytoplasmic Ab.classic Qn (S) <1:20 titer Neg:<1:20 [facility] Serum globulin measurement ( mass/volume)Ordered By: Cam Gabriel on 09-01-2023 Globulin (S) [Mass/Vol] 2.4 g/dL 2.2-3.9 [facility] Serum or plasma C reactive p rotein measurement (mass/volume)Ordered By: Cam Gabriel on 09-01-2023 CRP [Mass/Vol] mg/L 0.0-3.0 [facility] Comment on above: C-Reactive Protein ( CRP) provides useful information for thediagnosis, therapy and monitoring of inflammatory processesand associated diseases. For the evaluation of Relative Riskfor Cardiovascular Disease, a High Sensitivity CRP (HSCRP)should be ordered. Serum or plasma IgA measurem ent (mass/volume)Ordered By: Cam Gabriel on 09-01-2023 IgA [Mass/Vol] 198 mg/dL 90-386 [facility] Serum or plasma IgG measurem ent (mass/volume)Ordered By: Cam Gabriel on 09-01-2023 IgG [Mass/Vol] 827 mg/dL 603-1613 [facility] Serum or plasma IgM measurem ent (mass/volume)Ordered By: Cam Gabriel on 09-01-2023 IgM [Mass/Vol] 61 mg/dL 20-172 [facility] Serum or plasma beta globuli n measurement by electrophoresis (mass/volume)Ordered By: Cam Gabriel on 09-01-2023 Beta globulin Elph [Mass/Vol] 1.0 g/dL 0.7-1.3 [facility] Serum or plasma gamma globul in measurement by electrophoresis (mass/volume)Ordered By: Cam Gabriel on 09-01-2023 Gamma globulin Elph [Mass/Vol] 0.7 g/dL 0.4-1.8 [facility] Serum or plasma immunoelectr ophoresis interpretation (nominal result)Ordered By: Cam Gabriel on 09-01-2023 Interpretation IEP [Interp] Comment . [facility] Comment on above: No monoclonality det ected. Serum perinuclear neutrophil cytoplasmic antibody titer by immunofluorescenceOrdered By: Cam Gabriel on 09-01-2023 Neutrophil cytoplasmic Ab.perinuclear IF (S) [Titer] <1:20 titer Neg:<1:20 [facility] Comment on above: The presence of posi tive fluorescence exhibiting P-ANCA orC-ANCA patterns alone is not specific for the diagnosis ofWegener's Granulomatosis (WG) or microscopic polyangiitis.Decisions about treatment should not be based solely onANCA IFA results. The International ANCA Group Consensusrecommends follow up testing of positive sera with both MS-3 and MPO-ANCA enzyme immunoassays. As many as 5% serumsamples are positive only by EIA. Ref. AM J Clin [id number];111:507-513. Serum tissue transglutaminas e IgA antibody assay (units/volume)Ordered By: Cam Gabriel on 09-01-2023 tTG IgA Qn (S) <2 U/mL 0-3 [facility] Comment on above: Negative 0 - 3 Weak Positive 4 - 10 Positive >10 Tissue Transglutaminase (tTG) has been identified as the endomysial antigen. Studies have demonstr- ated that endomysial IgA antibodies have over 99% specificity for gluten sensitive enteropathy. Stool lactoferrin detection by immunoassayOrdered By: Cam Gabriel on 09-01-2023 Lactoferrin IA Ql (Stl) [facility] Thin prep Papanicolaou smear with manual screeningOrdered By: Cam Gabriel on 09-01-2023 Thin prep Papanicolaou smear with manual screening 1.8 0.7-1.7 [facility] Total protein bloodOrdered B y: Cam Gabriel on 09-01-2023 Protein [Mass/Vol] 6.6 g/dL 6.0-8.5 [facility] Stool lactoferrin detection by immunoassayOrdered By: Taylor Alicea on 04-18-2023 Lactoferrin IA Ql (Stl) [facility] Absolute lymphocyte countOrd ered By: Taylor Alicea on 04-14-2023 Lymphocytes Auto (Unsp spec) [#/Vol] 1.34 10*3/uL 0.83-4.51 [facility] Albumin Elph [Mass/Vol]Order ed By: Taylor Alicea on 04-14-2023 Albumin [Mass/Vol] 4.0 g/dL 2.9-4.4 [facility] Atypical perinuclear antineu trophil cytoplasmic antibodies measurementOrdered By: Taylor Alicea on 04-14-2023 Neutrophil cytoplasmic Ab.perinuclear.atypical IF (S) [Titer] <1:20 titer Neg:<1:20 [facility] Comment on above: The atypical pANCA p attern has been observed in asignificant percentage of patients with ulcerative colitis,primary sclerosing cholangitis and autoimmune hepatitis.Performed at: - [facility] [id number] Director: Aman Basurto PhD, Phone: [phone] at: - [facility] [id number] Director: Chong Guadarrama MD, Phone: [phone] Basophil percentageOrdered B y: Taylor Alicea on 04-14-2023 Basophil percentage < 0.2 AI 0.0-0.9 [facility] Basophils/100 WBC (Bld) 0.7 % 0-1 [facility] Bilirubin [Mass/Vol] 0.90 mg/dL 0.20-1.00 [facility] Comment on above: For patients on eltr ombopag therapy, use of Dimension [place] TBIL is not recommended. Chloride [Moles/Vol] 107 mmol/L 98-107 [facility] Eosinophils/100 WBC (Bld) 1.9 % 0-5 [facility] Glucose [Mass/Vol] 99 mg/dL 74-106 [facility] LDH [Catalytic activity/Vol] 168 U/L 87-241 [facility] Neutrophils (Bld) [#/Vol] 2.5 10*3/uL 2.0-7.7 [facility] Neutrophils/100 WBC (Bld) 58.5 % 47-70 [facility] Potassium [Moles/Vol] 3.8 mmol/L 3.5-5.1 [facility] Protein [Mass/Vol] 6.6 g/dL 6.4-8.2 [facility] Sodium [Moles/Vol] 139 mmol/L 136-145 [facility] WBC (Bld) [#/Vol] 4.3 10*3/uL 4.4-11.0 [facility] Blood erythrocytes count (nu mber/volume)Ordered By: Taylor Alicea on 04-14-2023 RBC (Bld) [#/Vol] 4.97 10*6/uL 4.6-6.2 [facility] Blood hemoglobin measurement (mass/volume)Ordered By: Taylor Alicea on 04-14-2023 Hemoglobin (Bld) [Mass/Vol] 15.6 g/dL 13.0-16.5 [facility] Blood lymphocytes/100 leukoc ytesOrdered By: Taylor Alicea on 04-14-2023 Lymphocytes/100 WBC (Bld) 31.2 % 19-41 [facility] Blood monocytes/100 leukocyt esOrdered By: Taylor Alicea on 04-14-2023 Monocytes/100 WBC (Bld) 7.0 % 0-10 [facility] Blood platelet mean volumeOr dered By: Taylor Alicea on 04-14-2023 Platelet mean volume (Bld) [Entitic vol] 11.5 fL 6.2-12.0 [facility] Determination of erythrocyte mean corpuscular volume (MCV)Ordered By: Taylor Alicea on 04-14-2023 MCV (RBC) [Entitic vol] 91.1 fL 80-94 [facility] Erythrocyte sedimentation ra teOrdered By: Taylor Alicea on 04-14-2023 ESR (Bld) [Velocity] 2 mm/h 0-20 [facility] Hematocrit Auto (Bld) [Volum e fraction]Ordered By: Taylor Alciea on 04-14-2023 Hematocrit (Bld) [Volume fraction] 45.3 % 40-54 [facility] Interpretation of serum or p lasma protein pattern by immunofixation (narrative resultOrdered By: Taylor Alicea on 04-14-2023 Protein Fractions Immunofixation Sukhjinder [Interp] See comment [facility] Comment on above: Result: Not Observed Laboratory - Chemistry and C hemistry - challengeOrdered By: Taylor Alicea on 04-14-2023 ALP [Catalytic activity/Vol] 88 U/L 45-117 [facility] ALT [Catalytic activity/Vol] 35 U/L 16-61 [facility] CO2 [Moles/Vol] 26.0 mmol/L 21.0-32.0 [facility] Urea nitrogen/Creatinine [Mass ratio] 26.9 mg/mg 10-20 [facility] Laboratory - Hematology and Cell countsOrdered By: Taylor Alicea on 04-14-2023 Erythrocyte distribution width (RBC) [Entitic vol] 41.1 fL 35.1-43.9 [facility] Erythrocyte distribution width (RBC) [Ratio] 12.5 % 11.6-14.6 [facility] Immature granulocytes/100 WBC (Bld) 0.700 % 0.0-0.9 [facility] Comment on above: IG% - Immature Granu locytes (promyelocytes, myelocytes and metamyelocytes) > 1% indicates that a LEFT SHIFT is Present. MCH (RBC) [Entitic mass] 31.4 pg 27.0-32.0 [facility] Nucleated RBC/100 WBC (Bld) [Ratio] 0 % 0-5 [facility] MCHC Auto (RBC) [Mass/Vol]Or dered By: Taylor Alicea on 04-14-2023 MCHC (RBC) [Mass/Vol] 34.4 g/dL 32-36 [facility] No Panel InformationOrdered By: Taylor Alicea on 04-14-2023 Addendum Document Comment . [facility] Comment on above: Protein electrophore sis scan will follow via computer,mail, or highway technician delivery. Centromere B Antibody <0.2 AI 0.0-0.9 [facility] Endomysial IgA Antibody Negative Negative [facility] Estimated GFR (MDRD) Amer 107 mL/min >60 [facility] Comment on above: GFR Calc Estimated GFR (MDRD) Non-Af Amer 88 mL/min >60 [facility] Comment on above: Non- GFR Calc Immunoglobulin E 11 IU/mL 6-495 [facility] Miscellaneous Test See comment [facility] Comment on above: TEST RESULT LIMITSIB D Expanded Panel Juni 10 units 0-50 Negative <45 Equivocal 45 - 50 Positive >50 ACCA 10 units 0-90 Negative <80 Equivocal 80 - 90 Positive >90 ALCA 4 units 0-60 Negative <55 Equivocal 55 - 60 Positive >60 AMCA 27 units 0-100 Negative < 90 Equivocal 90 - 100 Positive >100 This test was developed and its performance characteristics determined by [employer]. It has not been cleared or approved by the Food and Drug Administration. The FDA has determined that such clearance or approval is not necessary.Atypical pANCA Negative Negative Comments Pattern is not suggestive of Inflammatory Bowel Disease ____ TESTING PERFORMED AT [facility]. ORIGINAL REPORT ON FILE IN LAB CONTAINS ADDITIONAL TEST SITE INFORMATION. THERMOSTAT REPAIRER Antibody <0.2 AI 0.0-0.9 [facility] Platelets bldOrdered By: Lauren Alicea on 04-14-2023 Platelets (Bld) [#/Vol] 147 10*3/uL 150-450 [facility] Serum DNA double strand anti body assay (units/volume)Ordered By: Taylor Alicea on 04-14-2023 DNA double strand Ab Qn (S) [IU]/mL 0-9 [facility] Comment on above: Negative <5 Equivoca l 5 - 9 Positive >9 Serum Kiarra-1 antibody assay (u nits/volume)Ordered By: Taylor Alicea on 04-14-2023 Kiarra-1 extractable nuclear Ab Qn (S) <0.2 AI 0.0-0.9 [facility] Serum Scl-70 extractable nuc lear antibody assay (units/volume)Ordered By: Taylor Alicea on 04-14-2023 SCL-70 extractable nuclear Ab Qn (S) <0.2 AI 0.0-0.9 [facility] Serum Dela Cruz extractable nucl ear antibody detectionOrdered By: Taylor Alicea on 04-14-2023 Dela Cruz extractable nuclear Ab Ql (S) <0.2 AI 0.0-0.9 [facility] Serum [id number] measu rement by electrophoresisOrdered By: Taylor Alicea on 04-14-2023 Alpha 1 globulin Elph [Mass/Vol] 0.2 g/dL 0.0-0.4 [facility] Alpha 1 globulin Elph [Mass/Vol] 0.4 g/dL 0.4-1.0 [facility] Serum classic neutrophil cyt oplasmic antibody assay (units/volume)Ordered By: Taylor Alicea on 04-14-2023 Neutrophil cytoplasmic Ab.classic Qn (S) <1:20 titer Neg:<1:20 [facility] Serum globulin measurement ( mass/volume)Ordered By: Taylor Alicea on 04-14-2023 Globulin (S) [Mass/Vol] 2.1 g/dL 2.2-3.9 [facility] Serum or plasma C reactive p rotein measurement (mass/volume)Ordered By: Taylor Alicea on 04-14-2023 CRP [Mass/Vol] mg/L 0.0-3.0 [facility] Comment on above: C-Reactive Protein ( CRP) provides useful information for thediagnosis, therapy and monitoring of inflammatory processesand associated diseases. For the evaluation of Relative Riskfor Cardiovascular Disease, a High Sensitivity CRP (HSCRP)should be ordered. Serum or plasma IgA measurem ent (mass/volume)Ordered By: Taylor Alicea on 04-14-2023 IgA [Mass/Vol] 172 mg/dL 90-386 [facility] Serum or plasma IgG measurem ent (mass/volume)Ordered By: Taylor Alicea on 04-14-2023 IgG [Mass/Vol] 777 mg/dL 603-1613 [facility] Serum or plasma IgM measurem ent (mass/volume)Ordered By: Taylor Alicea on 04-14-2023 IgM [Mass/Vol] 38 mg/dL 20-172 [facility] Serum or plasma albumin gretchen urement (mass/volume)Ordered By: Taylor Alicea on 04-14-2023 Albumin [Mass/Vol] 3.7 g/dL 3.2-5.0 [facility] Serum or plasma albumin/glob ulin mass ratioOrdered By: Taylor Alicea on 04-14-2023 Albumin/Globulin [Mass ratio] 1.3 {ratio} 0.9-2.4 [facility] Serum or plasma beta globuli n measurement by electrophoresis (mass/volume)Ordered By: Taylor Alicea on 04-14-2023 Beta globulin Elph [Mass/Vol] 0.8 g/dL 0.7-1.3 [facility] Serum or plasma calcium gretchen urement (mass/volume)Ordered By: Taylor Alicea on 04-14-2023 Calcium [Mass/Vol] 8.3 mg/dL 8.5-10.1 [facility] Serum or plasma creatinine m easurement (mass/volume)Ordered By: Taylor Alicea on 04-14-2023 Creatinine [Mass/Vol] 0.93 mg/dL 0.70-1.30 [facility] Comment on above: The validity of the calculated GFR & GFRAA in patients over 70 years has not been determined. Clinical correlation is essential. Serum or plasma gamma globul in measurement by electrophoresis (mass/volume)Ordered By: Taylor Alicea on 04-14-2023 Gamma globulin Elph [Mass/Vol] 0.6 g/dL 0.4-1.8 [facility] Serum or plasma immunoelectr ophoresis interpretation (nominal result)Ordered By: Taylor Alicea on 04-14-2023 Interpretation IEP [Interp] Comment . [facility] Comment on above: No monoclonality det ected. Serum or plasma urea nitroge n measurement (mass/volume)Ordered By: Taylor Alicea on 04-14-2023 Urea nitrogen [Mass/Vol] 25 mg/dL 7-18 [facility] Serum perinuclear neutrophil cytoplasmic antibody titer by immunofluorescenceOrdered By: Taylor Alicea on 04-14-2023 Neutrophil cytoplasmic Ab.perinuclear IF (S) [Titer] <1:20 titer Neg:<1:20 [facility] Comment on above: The presence of posi tive fluorescence exhibiting P-ANCA orC-ANCA patterns alone is not specific for the diagnosis ofWegener's Granulomatosis (WG) or microscopic polyangiitis.Decisions about treatment should not be based solely onANCA IFA results. The [employer] ANCA Group Consensusrecommends follow up testing of positive sera with both MS-3 and MPO-ANCA enzyme immunoassays. As many as 5% serumsamples are positive only by EIA. Ref. AM J Clin [id number];111:507-513. Serum tissue transglutaminas e IgA antibody assay (units/volume)Ordered By: Taylor Alicea on 04-14-2023 tTG IgA Qn (S) <2 U/mL 0-3 [facility] Comment on above: Negative 0 - 3 Weak Positive 4 - 10 Positive >10 Tissue Transglutaminase (tTG) has been identified as the endomysial antigen. Studies have demonstr- ated that endomysial IgA antibodies have over 99% specificity for gluten sensitive enteropathy. Thin prep Papanicolaou smear with manual screeningOrdered By: Taylor Alicea on 04-14-2023 Thin prep Papanicolaou smear with manual screening 23 U/L 15-37 [facility] Thin prep Papanicolaou smear with manual screening 6 5-15 [facility] Thin prep Papanicolaou smear with manual screening 2.0 0.7-1.7 [facility] Total protein bloodOrdered B y: Taylor Alicea on 04-14-2023 Protein [Mass/Vol] 6.1 g/dL 6.0-8.5 [facility] MRI BRAIN WO/W IVCONon 04-11 [facility] [place] nut IgE serumOrdered By: Dr. Bright on 03-16-2023 [place] Nut IgE Qn (S) <0.10 kU/L Class 0 [facility] Barksdale's yeast IgE serumOrde red By: Dr. Bright on 03-16-2023 Barksdale's yeast IgE Qn (S) <0.10 kU/L Class 0 [facility] No Panel InformationOrdered By: Dr. Bright on 03-16-2023 Barley Allergen IgE Antibody <0.10 kU/L Class 0 [facility] Hazelnut Allergen IgE Antibody <0.10 kU/L Class 0 [facility] Shrimp Allergen <0.10 kU/L Class 0 [facility] Serum Ustilago avenae IgE an tibody assay (units/volume)Ordered By: Dr. Bright on 03-16-2023 Oat smut IgE Qn (S) <0.10 kU/L Class 0 [facility] Serum almond IgE antibody as say (units/volume)Ordered By: Dr. Bright on 03-16-2023 [place] IgE Qn (S) <0.10 kU/L Class 0 [facility] Serum apple IgE antibody ass ay (units/volume)Ordered By: Dr. Bright on 03-16-2023 Apple IgE Qn (S) <0.10 kU/L Class 0 [facility] Serum banana IgE antibody as say (units/volume)Ordered By: Dr. Bright on 03-16-2023 Banana IgE Qn (S) <0.10 kU/L Class 0 [facility] Serum beef IgE antibody assa y (units/volume)Ordered By: Dr. Bright on 03-16-2023 Beef IgE Qn (S) <0.10 kU/L Class 0 [facility] Serum black walnut IgE antib marie assay (units/volume)Ordered By: Dr. Bright on 03-16-2023 Black [place] IgE Qn (S) <0.10 kU/L Class 0 [facility] Serum carrot IgE antibody as say (units/volume)Ordered By: Dr. Bright on 03-16-2023 Carrot IgE Qn (S) <0.10 kU/L Class 0 [facility] Serum cashew nut IgE antibod y assay (units/volume)Ordered By: Dr. Bright on 03-16-2023 Cashew nut IgE Qn (S) <0.10 kU/L Class [address] [facility] Serum chicken IgE antibody a ssay (units/volume)Ordered By: Dr. Bright on 03-16-2023 Chicken IgE Qn (S) <0.10 kU/L Class 0 [facility] Serum codfish IgE antibody a ssay (units/volume)Ordered By: Dr. Bright on 03-16-2023 Codfish IgE Qn (S) <0.10 kU/L Class 0 [facility] Serum corn IgE antibody assa y (units/volume)Ordered By: Dr. Bright on 03-16-2023 [place] IgE Qn (S) <0.10 kU/L Class 0 [facility] Serum cow milk IgE antibody assay (units/volume)Ordered By: Dr. Bright on 03-16-2023 Cow milk IgE Qn (S) <0.10 kU/L Class 0 [facility] Serum crab IgE antibody assa y (units/volume)Ordered By: Dr. Bright on 03-16-2023 Crab IgE Qn (S) <0.10 kU/L Class 0 [facility] Serum egg white IgE antibody assay (units/volume)Ordered By: Dr. Bright on 03-16-2023 Egg white IgE Qn (S) <0.10 kU/L Class 0 [facility] Serum egg yolk IgE antibody assay (units/volume)Ordered By: Dr. Bright on 03-16-2023 Egg yolk IgE Qn (S) <0.10 kU/L Class 0 [facility] Serum garlic IgE antibody as say (units/volume)Ordered By: Dr. Bright on 03-16-2023 Garlic IgE Qn (S) <0.10 kU/L Class 0 [facility] Serum gluten IgE antibody as say (units/volume)Ordered By: Dr. Bright on 03-16-2023 Gluten IgE Qn (S) <0.10 kU/L Class 0 [facility] Serum lobster IgE antibody a ssay (units/volume)Ordered By: Dr. Bright on 03-16-2023 Lobster IgE Qn (S) <0.10 kU/L Class 0 [facility] Serum onion IgE antibody ass ay (units/volume)Ordered By: Dr. Bright on 03-16-2023 Onion IgE Qn (S) <0.10 kU/L Class 0 [facility] Serum orange IgE antibody as say (units/volume)Ordered By: Dr. Bright on 03-16-2023 [place] IgE Qn (S) <0.10 kU/L Class 0 [facility] Serum pea IgE antibody assay (units/volume)Ordered By: Dr. Bright on 03-16-2023 Pea IgE Qn (S) <0.10 kU/L Class 0 [facility] Serum peach IgE antibody ass ay (units/volume)Ordered By: Dr. Bright on 03-16-2023 [place] IgE Qn (S) <0.10 kU/L Class 0 [facility] Serum peanut IgE antibody as say (units/volume)Ordered By: Dr. Bright on 03-16-2023 Peanut IgE Qn (S) <0.10 kU/L Class 0 [facility] Comment on above: Levels of Specific I gE Class Description of Class ----- < 0.10 0 Negative 0.10 - 0.31 0/I Equivocal/Low 0.32 - 0.55 I Low 0.56 - 1.40 II Moderate 1.41 - 3.90 III High 3.91 - 19.00 IV Very High 19.01 - 100.00 V Very High >100.00 [facility] Serum pecan or hickory nut I gE antibody assay (units/volume)Ordered By: Dr. Bright on 03-16-2023 Pecan or [place] Nut IgE Qn (S) <0.10 kU/L Class 0 [facility] Serum pork IgE antibody assa y (units/volume)Ordered By: Dr. Bright on 03-16-2023 Pork IgE Qn (S) <0.10 kU/L Class 0 [facility] Serum rice IgE antibody assa y (units/volume)Ordered By: Dr. Bright on 03-16-2023 Rice IgE Qn (S) <0.10 kU/L Class 0 [facility] Serum salmon IgE antibody as say (units/volume)Ordered By: Dr. Bright on 03-16-2023 [place] IgE Qn (S) <0.10 kU/L Class 0 [facility] Serum soybean IgE antibody a ssay (units/volume)Ordered By: Dr. Bright on 03-16-2023 Soybean IgE Qn (S) <0.10 kU/L Class 0 [facility] Serum strawberry IgE antibod y assay (units/volume)Ordered By: Dr. Bright on 03-16-2023 [place] IgE Qn (S) <0.10 kU/L Class [address] [facility] Serum tomato IgE antibody as say (units/volume)Ordered By: Dr. Bright on 03-16-2023 Tomato IgE Qn (S) <0.10 kU/L Class 0 [facility] Serum tuna IgE antibody assa y (units/volume)Ordered By: Dr. Bright on 03-16-2023 Tuna IgE Qn (S) <0.10 kU/L Class 0 [facility] Serum turkey meat IgE antibo dy assay (units/volume)Ordered By: Dr. Bright on 03-16-2023 [place] meat IgE Qn (S) <0.10 kU/L Class 0 [facility] Comment on above: Performed at: [address] [id number] Director: Chong Guadarrama MD, Phone: [phone] Serum wheat IgE antibody ass ay (units/volume)Ordered By: Dr. Bright on 03-16-2023 Wheat IgE Qn (S) <0.10 kU/L Class 0 [facility] Serum white potato specific IgE antibody assayOrdered By: Dr. Bright on 03-16-2023 Potato IgE Qn (S) <0.10 kU/L Class 0 [facility] Thin prep Papanicolaou smear with manual screeningOrdered By: Dr. Bright on 03-16-2023 Thin prep Papanicolaou smear with manual screening <0.10 kU/L Class 0 [facility] SURGICAL PATHOLOGYon 023 Case Report Surgical Pathology R eport Case: [id number] Authorizing Provider: Niranjan Ko MD Collected: 03/06/2023 10:31 AM Ordering Location: Ambulatory Surgery Received: 03/06/2023 03:02 PM Pathologist: Nya Gutierrez MD Specimens: A) - DUODENUM BIOPSY B) - ANTRUM (STOMACH) BIOPSY, Antral bx h/h C) - ESOPHAGUS LOWER BIOPSY, Distal D) - ESOPHAGUS MID BIOPSY, MID [facility] FINAL DIAGNOSIS A. Duodenum, biopsy: - Duodenal mucosa with no significant diagnostic alteration. - No evidence of celiac disease or duodenitis. B. Gastric antrum, biopsy: - Oxyntic mucosa with no significant diagnostic alteration. - No morphologic evidence of Helicobacter pylori organisms. C, D. Esophagus, distal and mid, biopsies: - Squamous mucosa with no significant diagnostic alteration. - No evidence of esophagitis or eosinophilia. [facility] Gross Description A. DUODENUM BIOPSY Received in formalin are multiple pieces of maurice, soft tissue aggregating to 1.2 x 0.2 x 0.1 cm. Totally submitted in one cassette. B. ANTRUM (STOMACH) BIOPSY Received in formalin is one piece of maurice-brown, soft tissue measuring 0.4 x 0.2 x 0.2 cm. Totally submitted in one cassette. C. ESOPHAGUS LOWER BIOPSY Received in formalin are two pieces of maurice-white, soft tissue aggregating to 1.3 x 0.3 x 0.1 cm. Totally submitted in one cassette. D. ESOPHAGUS MID BIOPSY Received in formalin is one piece of maurice-white, soft tissue measuring 0.5 x 0.3 x 0.1 cm. Totally submitted in one cassette. Gross examination performed at [facility], [address] [place] [address] JT 03/07/2023 3:02 AM [facility] Performing Lab Diagnostic interpret ation performed at [facility], [address] [address] CLIA# [id number] Associate Agent Insurance Sales: Christiano Carr M.D. [facility] No Panel Informationon 03-06 [facility] ED NOTEon 03-05-2023 ED NOTE HNO ID: [id number] Author: Wilfredo Wise RN Service: ? Author Type: Registered Nurse Type: ED Notes Filed: 03/04/2023 10:37 PM Note Text: Discharge instructions d/w pt and spouse at bedside. Stated understanding with no further questions for this nurse. Encouraged f/u with PCP and referring doctors given. Stated understanding. [facility] 03-04-2023 ALLIED [facility] HNO ID: [id number] Author: Marcell Roberts Service: Radiology Author Type: Frozen Yogurt Maker Type: Allied Health Filed: 03/04/2023 8:50 PM Note Text: Radiology Service Progress Note DATE OF SERVICE: March 04, 2023 TIME: 8:46 PM PATIENT IDENTITY VERIFICATION COMPLETED USING TWO (2) STANDARD IDENTIFIERS: Name and Date of confirmed by patient verbally and Name and Date of confirmed by identification band. FALL SCREENING: Has the patient had 2 falls in the last year or 1 fall with injury or currently using an Ambulatory Assistive Device (Walker, Cane, Wheelchair, Crutches, etc.)? Emergency Room Patient: Screened in ED PATIENT GENDER DATA: Male PATIENT RELEVANT IMPLANT DATA REVIEWED: Yes ALLERGIES: Reviewed and unchanged CONTRAST ALLERGY: YES ALLERGY PREP GIVEN BY DR BETTY JOHNSON. EXAM: CT -CONTRAST INDUCED NEPHROPATHY RISK FACTORS: Not applicable CREATININE: Creatinine Date Value Ref Range Status 03/04/2023 0.87 0.73 - 1.22 mg/dL Final 02/21/2023 1.01 0.73 - 1.22 mg/dL Final 11/04/2022 0.97 0.73 - 1.22 mg/dL Final Estimated Glomerular Filtration Rate Date Value Ref Range Status 03/04/2023 99 >=60 mL/min/1.73m? Final Comment: Estimated Glomerular Filtration Rate (eGFR) is calculated using the 2020 CKD-EPI creatinine equation. This equation utilizes serum creatinine, sex, and age as parameters. The creatinine assay has traceable calibration to isotope dilution-mass spectrometry. Refer to KDIGO guidelines for clinical interpretation. In patients with unstable renal function, e.g. those with acute kidney injury, the eGFR may not accurately reflect actual GFR. eGFR- Date Value Ref Range Status 11/08/2021 >60 Final P.O.C.T. RESULTS: POC done: Yes, See Lab Tab March 04, 2023 TREATMENT: N/A PERIPHERAL IV DATA: Inpatient - refer to LDA documentation RADIOLOGY DEPARTMENT: CT; Exam(s) Completed: Chest Abdomen Pelvis and Neck SIGNATURE: Marcell Roberts PATIENT NAME: Thuy Kim DATE: March 04, 2023 TIME: 8:46 PM Normal [facility] Bilirub Conj SerPl-mCncon Bilirubin.conjugated [Mass/Vol] mg/dL Normal <0.2 [facility] Comment on above: Order Comment: Speci men Type: BLOOD SPECIMEN Ordering Facility: [facility] Address: [address] [place] [address] Performed By: #### 1 5152-2, 3040-3, 84292-5 #### [facility] CLIA [id number] [address] STATES [facility] CBC W Auto Differential pane l (Bld)on 03-04-2023 Basophils (Bld) [#/Vol] 10*3/uL Normal <0.11 [facility] Comment on above: Order Comment: Speci men Type: BLOOD SPECIMEN Ordering Facility: [facility] Address: [address] [address] Performed By: #### 5 7021-8 #### [facility] CLIA [id number] [address] Basophils/100 WBC (Bld) 0.3 % Normal [facility] Comment on above: Order Comment: Speci men Type: BLOOD SPECIMEN Ordering Facility: [facility] Address: [address] [address] Performed By: #### 5 7021-8 #### [facility] CLIA [id number] [address] Differential cell count method Nom (Bld) Auto [facility] Comment on above: Order Comment: Stephaniei men Type: BLOOD SPECIMEN Ordering Facility: [facility] Address: [address] [address] Performed By: #### 5 7021-8 #### [facility] CLIA [id number] [address] [place] Eosinophils (Bld) [#/Vol] 0.08 10*3/uL Normal <0.46 [facility] Comment on above: Order Comment: Speci men Type: BLOOD SPECIMEN Ordering Facility: [facility] Address: [address] [address] Performed By: #### 5 7021-8 #### [facility] CLIA [id number] [address] Eosinophils/100 WBC (Bld) 1.2 % Normal [facility] Comment on above: Order Comment: Speci men Type: BLOOD SPECIMEN Ordering Facility: [facility] Address: [address] [address] Performed By: #### 5 7021-8 #### [facility] CLIA [id number] [address] Erythrocyte distribution width (RBC) [Ratio] 12.4 % Normal 11.5-15.0 [facility] Comment on above: Order Comment: Speci men Type: BLOOD SPECIMEN Ordering Facility: [facility] Address: [address] [address] Performed By: #### 5 7021-8 #### [facility] CLIA [id number] [address] Hematocrit (Bld) [Volume fraction] 46.6 % Normal 39.0-51.0 [facility] Comment on above: Order Comment: Speci men Type: BLOOD SPECIMEN Ordering Facility: [facility] Address: [address] [address] Performed By: #### 5 7021-8 #### [facility] CLIA [id number] [address] [place] Hemoglobin (Bld) [Mass/Vol] 16.1 g/dL Normal 13.0-17.0 [facility] Comment on above: Order Comment: Speci men Type: BLOOD SPECIMEN Ordering Facility: [facility] Address: [address] [address] Performed By: #### 5 7021-8 #### [facility] CLIA [id number] [address] Immature granulocytes (Bld) [#/Vol] 0.04 10*3/uL Normal <0.10 [facility] Comment on above: Order Comment: Speci men Type: BLOOD SPECIMEN Ordering Facility: [facility] Address: [address] [address] Performed By: #### 5 7021-8 #### [facility] CLIA [id number] [address] Immature granulocytes/100 WBC (Bld) 0.6 % Normal [facility] Comment on above: Order Comment: Speci men Type: BLOOD SPECIMEN Ordering Facility: [facility] Address: [address] [address] Performed By: #### 5 7021-8 #### [facility] CLIA [id number] [address] Lymphocytes (Bld) [#/Vol] 1.59 10*3/uL Normal 1.00-4.0 0 [facility] Comment on above: Order Comment: Speci men Type: BLOOD SPECIMEN Ordering Facility: [facility] Address: [address] [address] Performed By: #### 5 7021-8 #### [facility] CLIA [id number] [address] Lymphocytes/100 WBC (Bld) 24.3 % Normal [facility] Comment on above: Order Comment: Speci men Type: BLOOD SPECIMEN Ordering Facility: [facility] Address: [address] [address] Performed By: #### 5 7021-8 #### [facility] CLIA [id number] [address] [place] MCH (RBC) [Entitic mass] 30.4 pg Normal 26.0-34.0 [facility] Comment on above: Order Comment: Speci men Type: BLOOD SPECIMEN Ordering Facility: [facility] Address: [address] [address] Performed By: #### 5 7021-8 #### [facility] CLIA [id number] [address] MCHC (RBC) [Mass/Vol] 34.5 g/dL Normal 30.5-36.0 [facility] Comment on above: Order Comment: Speci men Type: BLOOD SPECIMEN Ordering Facility: [facility] Address: [address] [address] Performed By: #### 5 7021-8 #### [facility] CLIA [id number] [address] OF [facility] MCV (RBC) [Entitic vol] 88.1 fL Normal 80.0-100.0 [facility] Comment on above: Order Comment: Speci men Type: BLOOD SPECIMEN Ordering Facility: [facility] Address: [address] [place] [address] Performed By: #### 5 7021-8 #### [facility] CLIA [id number] [address] [place] Monocytes (Bld) [#/Vol] 0.49 10*3/uL Normal <0.87 [facility] Comment on above: Order Comment: Speci men Type: BLOOD SPECIMEN Ordering Facility: [facility] Address: [address] [place] [address] Performed By: #### 5 7021-8 #### [facility] CLIA [id number] [address] Monocytes/100 WBC (Bld) 7.5 % Normal [facility] Comment on above: Order Comment: Speci men Type: BLOOD SPECIMEN Ordering Facility: [facility] Address: [address] [address] Performed By: #### 5 7021-8 #### [facility] CLIA [id number] [address] [place] [address] [facility] [place] Neutrophils (Bld) [#/Vol] 4.33 10*3/uL Normal 1.45-7.5 0 [facility] Comment on above: Order Comment: Speci men Type: BLOOD SPECIMEN Ordering Facility: [facility] Address: [address] [place] [address] Performed By: #### 5 7021-8 #### [facility] CLIA [id number] [address] Neutrophils/100 WBC (Bld) 66.1 % Normal [facility] Comment on above: Order Comment: Speci men Type: BLOOD SPECIMEN Ordering Facility: [facility] Address: [address] [address] Performed By: #### 5 7021-8 #### [facility] CLIA [id number] [address] Nucleated RBC (Bld) [#/Vol] 10*3/uL Normal <0.01 [facility] Comment on above: Order Comment: Speci men Type: BLOOD SPECIMEN Ordering Facility: [facility] Address: [address] [address] Performed By: #### 5 7021-8 #### [facility] CLIA [id number] [address] Nucleated RBC/100 WBC (Bld) [Ratio] 0.0 /100 WBC Normal [facility] Comment on above: Order Comment: Speci men Type: BLOOD SPECIMEN Ordering Facility: [facility] Address: [address] [address] Performed By: #### 5 7021-8 #### [facility] CLIA [id number] [address] Platelet mean volume (Bld) [Entitic vol] 11.6 fL Normal 9.0-12.7 [facility] Comment on above: Order Comment: Speci men Type: BLOOD SPECIMEN Ordering Facility: [facility] Address: [address] [address] Performed By: #### 5 7021-8 #### [facility] CLIA [id number] [address] Platelets (Bld) [#/Vol] 160 10*3/uL Normal 150-400 [facility] Comment on above: Order Comment: Speci men Type: BLOOD SPECIMEN Ordering Facility: [facility] Address: [address] [address] Performed By: #### 5 7021-8 #### [facility] CLIA [id number] [address] [place] RBC (Bld) [#/Vol] 5.29 10*6/uL Normal 4.20-6.00 [facility] Comment on above: Order Comment: Speci men Type: BLOOD SPECIMEN Ordering Facility: [facility] Address: [address] [address] Performed By: #### 5 7021-8 #### [facility] CLIA [id number] [address] WBC (Bld) [#/Vol] 6.55 10*3/uL Normal 3.70-11.00 [facility] Comment on above: Order Comment: Speci men Type: BLOOD SPECIMEN Ordering Facility: [facility] Address: [address] [place], [place] [address] Performed By: #### 5 7021-8 #### [facility] CLIA [id number] [address] ABD/PEL W IVCONon 03-04- 023 CT ABD/PEL W IVCON * * *Final Report* * * DATE OF EXAM: Mar 04 2023 8:49PM [facility] - CT ABD/PEL W IVCON / PROCEDURE REASON: Abdominal pain, acute, nonlocalized * * * * Physician Interpretation * * * * EXAMINATION: CT chest abdomen pelvis HISTORY: Throat pain, weight loss COMPARISON: None TECHNIQUE: CT of the chest, abdomen and pelvis was performed with multiplanar reformations. Dose modulation, iterative reconstruction, and/or weight based adjustment of the mA/kV was utilized to reduce the radiation dose to as low as reasonably achievable. FINDINGS: CHEST Mediastinum: No adenopathy, abnormal fluid or gas collections. Lungs: No focal opacity Airways: Unremarkable. Pleura: No pleural effusion or pneumothorax Other: Unremarkable ABDOMEN/PELVIS:: Liver: Numerous hepatic cysts are identified, with the largest in the medial left hepatic lobe measuring up to 19 mm. Gallbladder: Unremarkable Biliary: Unremarkable Pancreas: Unremarkable Spleen: Unremarkable GI/ Bowel: Stomach and small bowel appear unremarkable. No wall thickening, pericolonic inflammation or diverticular disease. The appendix is not visualized however there are no secondary signs of acute appendicitis. Adrenals: Unremarkable Kidneys/ Ureters: Punctate calcifications bilaterally. Bladder: Partially distended. Reproductive: Unremarkable. OTHER: Peritoneum/ Retroperitoneum: No adenopathy, free air or free fluid. Bones: Mild degenerative change Cardiovascular: Unremarkable Other: Unremarkable IMPRESSION: 1. No acute process in the chest, abdomen or pelvis is appreciated. 2. Numerous hepatic cysts 3. Nonobstructive punctate nephrolithiasis bilaterally Blood Bank Attendant: LELO Transcribe Date/Time: Mar 04 2023 9:11P Dictated by : JOHNNA HOBBS MD This examination was interpreted and the report reviewed and electronically signed by: JOHNNA HOBBS MD on Mar 04 2023 9:33PM EST [id number] [facility] CT CHEST W IVCONon 3 CT CHEST W IVCON * * *Final Report* * * DATE OF EXAM: Mar 04 2023 8:49PM [facility] - CT CHEST W IVCON / PROCEDURE REASON: Lung/mediastinal abscess * * * * Physician Interpretation * * * * EXAMINATION: CT chest abdomen pelvis HISTORY: Throat pain, weight loss COMPARISON: None TECHNIQUE: CT of the chest, abdomen and pelvis was performed with multiplanar reformations. Dose modulation, iterative reconstruction, and/or weight based adjustment of the mA/kV was utilized to reduce the radiation dose to as low as reasonably achievable. FINDINGS: CHEST Mediastinum: No adenopathy, abnormal fluid or gas collections. Lungs: No focal opacity Airways: Unremarkable. Pleura: No pleural effusion or pneumothorax Other: Unremarkable ABDOMEN/PELVIS:: Liver: Numerous hepatic cysts are identified, with the largest in the medial left hepatic lobe measuring up to 19 mm. Gallbladder: Unremarkable Biliary: Unremarkable Pancreas: Unremarkable Spleen: Unremarkable GI/ Bowel: Stomach and small bowel appear unremarkable. No wall thickening, pericolonic inflammation or diverticular disease. The appendix is not visualized however there are no secondary signs of acute appendicitis. Adrenals: Unremarkable Kidneys/ Ureters: Punctate calcifications bilaterally. Bladder: Partially distended. Reproductive: Unremarkable. OTHER: Peritoneum/ Retroperitoneum: No adenopathy, free air or free fluid. Bones: Mild degenerative change Cardiovascular: Unremarkable Other: Unremarkable IMPRESSION: 1. No acute process in the chest, abdomen or pelvis is appreciated. 2. Numerous hepatic cysts 3. Nonobstructive punctate nephrolithiasis bilaterally Blood Bank Attendant: PSCCarson Transcribe Date/Time: Mar 04 2023 9:11P Dictated by : JOHNNA HOBBS MD This examination was interpreted and the report reviewed and electronically signed by: JOHNNA HOBBS MD on Mar 04 2023 9:33PM EST [id number] [facility] CT NECK SOFT TISSUE W IVCONo n 03-04-2023 CT NECK SOFT TISSUE W IVCON * * *Final Report* * * DATE OF EXAM: Mar 04 2023 8:49PM [facility] - CT NECK SOFT TISSUE W IVCON / PROCEDURE REASON: Dysphagia, unexplained * * * * Physician Interpretation * * * * EXAMINATION: CT NECK SOFT TISSUE W IVCON HISTORY: Dysphagia, unexplained Technique: CT of the soft tissues of the neck with IV contrast. A series of contiguous helical scans were performed from the skull base to the aortic arch. M: CTNW_1 Contrast: 100 mL Omnipaque [address] Dose-Length Product (DLP): 912 mGy*cm CT Dose Reduction Employed: Automated exposure control (AEC) COMPARISON: None. RESULT: Postoperative change: None apparent. Suprahyoid Neck: Nasopharynx and oropharynx appear normal. Parapharyngeal tissue planes are preserved. Oral cavity and floor of mouth appear normal within constraints of artifact from dental amalgam. Parotid and submandibular spaces are normal. Pipe Cleaning Machine Operator spaces appear normal. Infrahyoid Neck: Hypopharynx, larynx, and imaged infraglottic trachea appear normal. Imaged upper esophagus is unremarkable. Thyroid gland is homogeneous without evidence of discrete nodule. Lymph Nodes: No cervical lymphadenopathy by size criteria. Carotid Space: No masses. Patent extracranial carotid systems and internal jugular veins bilaterally. Orbits, Face and Skull Base: Orbital soft tissue planes are preserved. . Paranasal sinuses are clear. . Mastoid air cells and middle ear cavities are clear. . No evidence of an osteolytic or osteoblastic process in the skull base. . . Imaged intracranial contents: No enhancement, no mass effect, and no hydrocephalus. Cervical spine and remaining osseous structures: Alignment is normal. No discrete osteolytic or osteoblastic process. Moderate spondylotic changes in the visualized spine. Lung apices: No mass and no focal consolidation in imaged lung apices. Other: Not applicable. IMPRESSION: Unremarkable aerodigestive tract. Blood Bank Attendant: LELO Transcribe Date/Time: Mar 04 2023 8:50P Dictated by : JOEY FERRER MD This examination was interpreted and the report reviewed and electronically signed by: SILVIA MAZARIEGOS MD on Mar 04 2023 8:58PM EST [id number] Normal [facility] Comprehensive metabolic 2000 panelon 03-04-2023 Albumin [Mass/Vol] 4.4 g/dL Normal 3.9-4.9 [facility] Comment on above: Order Comment: Speci men Type: BLOOD SPECIMEN Ordering Facility: [facility] Address: [address] [place] [address] Performed By: #### 1 5152-2, 3040-3, 42524-5 #### [facility] CLIA [id number] [address] ALP [Catalytic activity/Vol] 97 U/L Normal 38-113 [facility] Comment on above: Order Comment: Speci men Type: BLOOD SPECIMEN Ordering Facility: [facility] Address: [address] [address] Performed By: #### 1 5152-2, 3040-3, 43083-5 #### [facility] CLIA [id number] [address] STATES OF [facility] ALT [Catalytic activity/Vol] 26 U/L Normal 10-54 [facility] Comment on above: Order Comment: Speci men Type: BLOOD SPECIMEN Ordering Facility: [facility] Address: [address] [address] Performed By: #### 1 5152-2, 3040-3, 09366-4 #### [facility] CLIA [id number] [address] Anion gap [Moles/Vol] 10 mmol/L Normal 9-18 [facility] Comment on above: Order Comment: Speci men Type: BLOOD SPECIMEN Ordering Facility: [facility] Address: [address] [address] Performed By: #### 1 5152-2, 3040-3, 48914-4 #### [facility] CLIA [id number] [address] [place] [address] [place] AST [Catalytic activity/Vol] 21 U/L Normal 14-40 [facility] Comment on above: Order Comment: Speci men Type: BLOOD SPECIMEN Ordering Facility: [facility] Address: [address] [place] [address] Performed By: #### 1 5152-2, 3040-3, 08648-9 #### [facility] CLIA [id number] [address] [place] [address] [place] Bilirubin [Mass/Vol] 0.7 mg/dL Normal 0.2-1.3 [facility] Comment on above: Order Comment: Speci men Type: BLOOD SPECIMEN Ordering Facility: [facility] Address: [address] [place] [address] Performed By: #### 1 5152-2, 3039-3, #### [facility] CLIA [id number] [address] [place] [address] [place] Calcium [Mass/Vol] 9.4 mg/dL Normal 8.5-10.2 [facility] Comment on above: Order Comment: Speci men Type: BLOOD SPECIMEN Ordering Facility: [facility] Address: [address] [place] [address] Performed By: #### 1 5152-2, 3039-3, #### [facility] CLIA [id number] [address] [place] [address] [place] Chloride [Moles/Vol] 101 mmol/L Normal 97-105 [facility] Comment on above: Order Comment: Speci men Type: BLOOD SPECIMEN Ordering Facility: [facility] Address: [address] [place] [address] Performed By: #### 1 5152-2, 3040-3, 22932-1 #### [facility] CLIA [id number] [address] [place] [address] [place] CO2 [Moles/Vol] 29 mmol/L Normal 22-30 [facility] Comment on above: Order Comment: Speci men Type: BLOOD SPECIMEN Ordering Facility: [facility] Address: [address] [place] [address] Performed By: #### 1 5152-2, 3040-3, 65645-3 #### [facility] CLIA [id number] [address] Creatinine [Mass/Vol] 0.87 mg/dL Normal 0.73-1.22 [facility] Comment on above: Order Comment: Specchelsey men Type: BLOOD SPECIMEN Ordering Facility: [facility] Address: [place] [address] Performed By: #### 1 5152-2, 3040-3, 77832-8 #### [facility] CLIA [id number] [address] OF [facility] ESTIMATED GLOMERULAR FILTRATION RATE 99 mL/min/1.73m??? Normal >=60 [facility] Comment on above: Order Comment: Spike men Type: BLOOD SPECIMEN Ordering Facility: [facility] Address: [address] [place] [address] Result Comment: Lorenza mated Glomerular Filtration Rate (eGFR) is calculated using the 2020 CKD-EPI creatinine equation. This equation utilizes serum creatinine, sex, and age as parameters. The creatinine assay has traceable calibration to isotope dilution-mass spectrometry. Refer to KDIGO guidelines for clinical interpretation. In patients with unstable renal function, e.g. those with acute kidney injury, the eGFR may not accurately reflect actual GFR. Performed By: #### 1 5152-2, 3040-3, 62883-8 #### [facility] CLIA [id number] [address] [place] Glucose [Mass/Vol] 103 mg/dL High 74-99 [facility] Comment on above: Order Comment: Speci men Type: BLOOD SPECIMEN Ordering Facility: [facility] Address: [address] [place], [place] [id number] Result Comment: The [place] [employer] (ADA) provides guidance for cutoff values for fasting glucose and random glucose. The ADA defines fasting as no caloric intake for at least 8 hours. Fasting plasma glucose results between 100 to 125 mg/dL indicate increased risk for diabetes (prediabetes). Fasting plasma glucose results greater than or equal to 126 mg/dL meet the criteria for diagnosis of diabetes. In the absence of unequivocal hyperglycemia, results should be confirmed by repeat testing. In a patient with classic symptoms of hyperglycemia or hyperglycemic crisis, random plasma glucose results greater than or equal to 200 mg/dL meet the criteria for diagnosis of diabetes. Reference: Standards of Medical Care in Diabetes 2016, [place] [employer]. Diabetes Care. 2016.39(Suppl 1). Performed By: #### 1 5152-2, 3040-3, 57231-9 #### [facility] CLIA [id number] [address] [place] [address] [place] Potassium [Moles/Vol] 4.4 mmol/L Normal 3.7-5.1 [facility] Comment on above: Order Comment: Spike funez Type: BLOOD SPECIMEN Ordering Facility: [facility] Address: [address] [place] [address] Performed By: #### 1 5152-2, 3040-3, 18113-8 #### [facility] CLIA [id number] [address] [place] [address] [place] Protein [Mass/Vol] 7.0 g/dL Normal 6.3-8.0 [facility] Comment on above: Order Comment: Spike funez Type: BLOOD SPECIMEN Ordering Facility: [facility] Address: [address] [place] [address] Performed By: #### 1 5152-2, 3040-3, 90068-2 #### [facility] CLIA [id number] [address] [place] Sodium [Moles/Vol] 140 mmol/L Normal 136-144 [facility] Comment on above: Order Comment: Spike funez Type: BLOOD SPECIMEN Ordering Facility: [facility] Address: [address] [place] [address] Performed By: #### 1 5152-2, 3040-3, 68204-0 #### [facility] CLIA [id number] [address] [place] Urea nitrogen [Mass/Vol] 22 mg/dL Normal 9-24 [facility] Comment on above: Order Comment: Spike funez Type: BLOOD SPECIMEN Ordering Facility: [facility] Address: [place] [address] Performed By: #### 1 5152-2, 3040-3, 01966-1 #### [facility] CLIA [id number] [address] [place] [address] [facility] ED PROV NOTEon 03-04-2023 ED PROV NOTE HNO ID: [id number] Author: Betty Johnson MD Service: ? Author Type: Physician Type: ED Provider Notes Filed: 03/04/2023 10:07 PM Note Text: ED Provider Note Patient Name: Thuy Kim : 1965 SERVICE DATE: 03/04/23 History Patient presents with: Throat Problem Weight Loss Patient presents here with issues with difficulty swallowing and eating associated with weight loss. The symptoms have been ongoing for about 6 months. He has had a lot of issues with weight loss and has lost over 60 pounds. His family physician has been evaluating him for multiple things including gluten sensitivity. He did see a food and beverage checker who did a colonoscopy. He is scheduled to have an upper endoscopy done on Monday. He presents here today because he really feels like there is something wrong and he feels like that it is a cancer that he is going to need time to figure out how to beat it so he wanted to be diagnosed. He states that everything feels like it is full and get stuck in his throat when he swallows but it is more in his neck. He has had a lot of weight loss but no night sweats. He sometimes has burning sensations in his mouth. He is not having any diarrhea. He is not having any abdominal pain. He broke smoked briefly in his 20s but has not really smoked since. He did drink alcohol but not to excess but has not had any for the last 6 months since all of the symptoms started. He has not had a fever. He has not been traveling. He is denying abdominal pain. He is denying diarrhea. They have exhausted multiple options including seeing a dietitian. He currently is on 2700 janell a day but continues to lose weight. They have avoided all gluten and wheat products because they felt that maybe this was related but it has not seem to make a difference. He has not had any vomiting. He is able to actually swallow food without difficulty nothing seems to get stuck but he feels like there is something in his throat. He has not had any bloody noses. He has not had any documented fever. PAST MEDICAL HISTORY Diagnosis Date Anxiety Aortic root dilation (HCC) Bicuspid aortic valve Mariana's thyroiditis Migraine-cluster headache syndrome Moderate aortic stenosis Palpitation PAST SURGICAL HISTORY Procedure Laterality Date APPENDECTOMY age 11 -- after rupture APPENDECTOMY HX KNEE SURGERY HX torn meniscus FAMILY HISTORY Problem Relation Age of Onset Heart Failure Mother Emphysema Mother Heart Attack Father Coronary Artery Disease Father stent Diabetes Father Kidney Disease Father Social History Tobacco Use Smoking status: Former Packs/day: 1.00 Years: 5.00 Pack years: 5.00 Types: Cigarettes Quit date: 1979 Years since quittin.3 Smokeless tobacco: Never Vaping Use Vaping Use: Never used Substance and Sexual Activity Alcohol use: Yes Alcohol/week: 35.0 standard drinks Types: 14 Cans of Beer (12oz) per week Drug use: Not Currently Sexual activity: Not on file ALLERGIES Allergen Reactions Iv Contrast [Iodine] Other: See Comments Shaking, seizure like activity per pt Prednisone Mental Status Change Steroid psychosis Review of Systems Constitutional: Positive for appetite change and unexpected weight change. Negative for activity change, chills, diaphoresis, fatigue and fever. HENT: Positive for sore throat and trouble swallowing. Negative for congestion, dental problem, ear pain, facial swelling, nosebleeds, rhinorrhea, sneezing and voice change. Eyes: Negative for pain, discharge, redness, itching and visual disturbance. Respiratory: Negative for cough, choking, chest tightness, shortness of breath and wheezing. Cardiovascular: Negative for chest pain, palpitations and leg swelling. Gastrointestinal: Negative for blood in stool, constipation, diarrhea, nausea and vomiting. Genitourinary: Negative for difficulty urinating, dysuria, flank pain, frequency, hematuria and urgency. Musculoskeletal: Negative for back pain, gait problem, joint swelling and neck pain. Skin: Negative for rash. Neurological: Negative for dizziness, speech difficulty, weakness, light-headedness, numbness and headaches. Hematological: Does not bruise/bleed easily. Psychiatric/Behavioral: Negative for behavioral problems, confusion and suicidal ideas. Physical Exam Vitals [03/04/23 1647] BP Pulse Temp Temp src Resp SpO2 Weight Height 157/87 (!) 91 37.1 ?C (98.7 ?F) Oral 17 98 % 79.8 kg (176 lb) -- Physical Exam Vitals and nursing note reviewed. Constitutional: General: He is not in acute distress. Appearance: Normal appearance. He is well-developed. He is not ill-appearing, toxic-appearing or diaphoretic. HENT: Head: Normocephalic and atraumatic. Nose: Nose normal. Mouth/Throat: Mouth: Mucous membranes are moist. Eyes: General: No scleral icterus. Right eye: No discharge. Left eye: No dis (more content not included)... Normal [facility] Lipase SerPl-cCncon 03-04-20 Lipase [Catalytic activity/Vol] 55 U/L Normal [facility] Comment on above: Order Comment: Speci men Type: BLOOD SPECIMEN Ordering Facility: [facility] Address: [address] [place] [phone] Performed By: #### 1 5152-2, 3040-3, 69182-1 #### [facility] CLIA [id number] [address] [place] [address] [place] ALDOLASE BLDon 02-22-2023 Aldolase [Catalytic activity/Vol] 4.0 mU/mL 1.5 - 8.1 U/L [facility] CBC W Auto Differential pane l (Bld)on 02-22-2023 Basophils (Bld) [#/Vol] 0.03 10*3/uL <0.11 k/uL [facility] Basophils/100 WBC (Bld) 0.6 % [facility] Differential cell count method Nom (Bld) Auto [facility] Eosinophils (Bld) [#/Vol] 0.12 10*3/uL <0.46 k/ uL [facility] Eosinophils/100 WBC (Bld) 2.2 % [facility] Erythrocyte distribution width (RBC) [Ratio] 12.3 % 11.5 - 15.0 % [facility] Hematocrit (Bld) [Volume fraction] 47.3 % 39.0 - 51.0 % [facility] Hemoglobin (Bld) [Mass/Vol] 15.9 g/dL 13.0 - 17.0 g/dL [facility] Immature granulocytes (Bld) [#/Vol] <0.10 k/uL [facility] Immature granulocytes/100 WBC (Bld) 0.2 % [facility] Lymphocytes (Bld) [#/Vol] 1.64 10*3/uL 1. 00 - 4.00 k/uL [facility] Lymphocytes/100 WBC (Bld) 30.4 % [facility] MCH (RBC) [Entitic mass] 30.2 pg 26. 0 - 34.0 pg [facility] MCHC (RBC) [Mass/Vol] 33.6 g/dL 30.5 - 36.0 g/dL [facility] MCV (RBC) [Entitic vol] 89.9 fL 80.0 - 100.0 fL [facility] Monocytes (Bld) [#/Vol] 0.44 10*3/uL <0.87 k/uL [facility] Monocytes/100 WBC (Bld) 8.2 % [facility] Neutrophils (Bld) [#/Vol] 3.15 10*3/uL 1. 45 - 7.50 k/uL [facility] Neutrophils/100 WBC (Bld) 58.4 % [facility] Nucleated RBC (Bld) [#/Vol] <0.01 k/uL [facility] Nucleated RBC/100 WBC (Bld) [Ratio] 0.0 /100 WBC [facility] Platelet mean volume (Bld) [Entitic vol] 12.0 fL 9.0 - 12.7 fL [facility] Platelets (Bld) [#/Vol] 148 10*3/uL Low 150 - 400 k/uL [facility] RBC (Bld) [#/Vol] 5.26 10*6/uL 4.20 - 6.00 m/uL [facility] WBC (Bld) [#/Vol] 5.39 10*3/uL 3.70 - 11.00 k/uL [facility] CK CREATINE KINASEon 023 CK [Catalytic activity/Vol] 90 U/L 51 - 298 U/L [facility] Comprehensive metabolic 2000 panelon 02-22-2023 Albumin [Mass/Vol] 4.6 g/dL 3.9 - 4.9 g/dL [facility] ALP [Catalytic activity/Vol] 92 U/L 38 - 113 U/L [facility] ALT [Catalytic activity/Vol] 29 U/L 10 - 54 U/L [facility] Anion gap [Moles/Vol] 11 mmol/L 9 - 18 mmol/L [facility] AST [Catalytic activity/Vol] 25 U/L 14 - 40 U/L [facility] Bilirubin [Mass/Vol] 0.9 mg/dL 0.2 - 1 .3 mg/dL [facility] Calcium [Mass/Vol] 9.1 mg/dL 8.5 - 10. 2 mg/dL [facility] Chloride [Moles/Vol] 105 mmol/L 97 - 10 5 mmol/L [facility] CO2 [Moles/Vol] 25 mmol/L 22 - 30 mmol/L [facility] Creatinine [Mass/Vol] 1.01 mg/dL 0.73 - 1.22 mg/dL [facility] Estimated Glomerular Filtration Rate 86 mL/min/1.73m >=60 mL/min/1.7 3m [facility] Glucose [Mass/Vol] 94 mg/dL 74 - 99 mg/dL [facility] Potassium [Moles/Vol] 4.6 mmol/L 3.7 - 5.1 mmol/L [facility] Protein [Mass/Vol] 6.6 g/dL 6.3 - 8.0 g/dL [facility] Sodium [Moles/Vol] 141 mmol/L 136 - 144 mmol/L [facility] Urea nitrogen [Mass/Vol] 16 mg/dL 9 - 24 mg/dL [facility] LD LACTATE DEHYDROon 023 LDH [Catalytic activity/Vol] 187 U/L 135 - 225 U/L [facility] PREALBUMIN [facility] 02-22-2023 Prealbumin [Mass/Vol] 28 mg/dL 17 - 3 6 mg/dL [facility] T3 FREE [facility] 02-22-2023 Free T3 [Mass/Vol] 2.9 pg/mL 2.3 - 4.1 pg/mL [facility] T4 FREE/FREE THYROXon 2022 Free T4 [Mass/Vol] 1.7 ng/dL 0.9 - 1.7 ng/dL [facility] TSH Don 02-22-2023 TSH Qn 3.230 m[IU]/L 0.270 - 4.200 mIU/L [facility] URIC ACID BLOODon 02-22-2023 Urate [Mass/Vol] 4.6 mg/dL 4.0 - 8.1 mg/dL [facility] ALDOLASE BLDon 12-17-2022 Aldolase [Catalytic activity/Vol] 3.5 mU/mL 1.5 - 8.1 U/L [facility] C-REACTIVE ULTRA SENon 12-17 CRP High sensitivity method [Mass/Vol] 0.8 mg/L <3.1 mg/L [facility] CK CREATINE KINASEon 023 CK [Catalytic activity/Vol] 123 U/L 51 - 298 U/L [facility] CORTISOL BLDon 12-17-2022 Cortisol [Mass/Vol] 15.3 ug/dL 4.8 - 19 .5 ug/dL [facility] PREALBUMIN BLDon 12-17-2022 Prealbumin [Mass/Vol] 28 mg/dL 17 - 3 6 mg/dL [facility] PSA/PROSTSPECAG SCRNon 12-17 Prostate specific Ag [Mass/Vol] 0.38 ng/mL <2.60 ng/mL [facility] VITAMIN B12 BLOODon 12-17-19 Cobalamin (Vitamin B12) [Mass/Vol] 553 pg/mL 232 - 1,245 pg/mL [facility] B. burgdorferi IgG and IgM p michael (S)on 11-08-2022 B. burgdorferi IgG+IgM Qn (S) Negative Negative [facility] Nuclear Ab IA Ql (S)on 11-08 STACEY by EIA, Qual Negative Negative [facility] C-REACTIVE PROTEIN (CRP)on 1 CRP [Mass/Vol] <0.9 mg/dL [facility] CBC W Auto Differential pane l (Bld)on 11-04-2022 Basophils (Bld) [#/Vol] 0.03 10*3/uL <0.11 k/uL [facility] Basophils/100 WBC (Bld) 0.7 % [facility] Differential cell count method Nom (Bld) Auto [facility] Eosinophils (Bld) [#/Vol] 0.08 10*3/uL <0.46 k/ uL [facility] Eosinophils/100 WBC (Bld) 1.7 % [facility] Erythrocyte distribution width (RBC) [Ratio] 12.3 % 11.5 - 15.0 % [facility] Hematocrit (Bld) [Volume fraction] 48.2 % 39.0 - 51.0 % [facility] Hemoglobin (Bld) [Mass/Vol] 16.3 g/dL 13.0 - 17.0 g/dL [facility] Immature granulocytes (Bld) [#/Vol] <0.10 k/uL [facility] Immature granulocytes/100 WBC (Bld) 0.2 % [facility] Lymphocytes (Bld) [#/Vol] 1.47 10*3/uL 1. 00 - 4.00 k/uL [facility] Lymphocytes/100 WBC (Bld) 32.0 % [facility] MCH (RBC) [Entitic mass] 30.4 pg 26. 0 - 34.0 pg [facility] MCHC (RBC) [Mass/Vol] 33.8 g/dL 30.5 - 36.0 g/dL [facility] MCV (RBC) [Entitic vol] 89.8 fL 80.0 - 100.0 fL [facility] Monocytes (Bld) [#/Vol] 0.33 10*3/uL <0.87 k/uL [facility] Monocytes/100 WBC (Bld) 7.2 % [facility] Neutrophils (Bld) [#/Vol] 2.67 10*3/uL 1. 45 - 7.50 k/uL [facility] Neutrophils/100 WBC (Bld) 58.2 % [facility] Nucleated RBC (Bld) [#/Vol] <0.01 k/uL [facility] Nucleated RBC/100 WBC (Bld) [Ratio] 0.0 /100 WBC [facility] Platelet mean volume (Bld) [Entitic vol] 11.7 fL 9.0 - 12.7 fL [facility] Platelets (Bld) [#/Vol] 162 10*3/uL 150 - 400 k/uL [facility] RBC (Bld) [#/Vol] 5.37 10*6/uL 4.20 - 6.00 m/uL [facility] WBC (Bld) [#/Vol] 4.59 10*3/uL 3.70 - 11.00 k/uL [facility] Comprehensive metabolic 2000 panelon 11-04-2022 Albumin [Mass/Vol] 4.6 g/dL 3.9 - 4.9 g/dL [facility] ALP [Catalytic activity/Vol] 80 U/L 38 - 113 U/L [facility] ALT [Catalytic activity/Vol] 25 U/L 10 - 54 U/L [facility] Anion gap [Moles/Vol] 11 mmol/L 9 - 18 mmol/L [facility] AST [Catalytic activity/Vol] 26 U/L 14 - 40 U/L [facility] Bilirubin [Mass/Vol] 1.0 mg/dL 0.2 - 1 .3 mg/dL [facility] Calcium [Mass/Vol] 9.3 mg/dL 8.5 - 10. 2 mg/dL [facility] Chloride [Moles/Vol] 104 mmol/L 97 - 10 5 mmol/L [facility] CO2 [Moles/Vol] 25 mmol/L 22 - 30 mmol/L [facility] Creatinine [Mass/Vol] 0.97 mg/dL 0.73 - 1.22 mg/dL [facility] Estimated Glomerular Filtration Rate 90 mL/min/1.73m >=60 mL/min/1.7 3m [facility] Glucose [Mass/Vol] 97 mg/dL 74 - 99 mg/dL [facility] Potassium [Moles/Vol] 4.4 mmol/L 3.7 - 5.1 mmol/L [facility] Protein [Mass/Vol] 6.9 g/dL 6.3 - 8.0 g/dL [facility] Sodium [Moles/Vol] 140 mmol/L 136 - 144 mmol/L [facility] Urea nitrogen [Mass/Vol] 19 mg/dL 9 - 24 mg/dL [facility] ESR Westergren method (Bld) [Velocity]on 11-04-2022 ESR (Bld) [Velocity] 2 mm/h 0 - 15 mm/hr [facility] MAGNESIUM BLDon 11-04-2022 Magnesium [Mass/Vol] 2.2 mg/dL 1.7 - 2 .3 mg/dL [facility] ECHOon 07-05-2022 Echocardiography Echocardiography Rep ort: Transthoracic Echo [facility] Date of service: 07/05/2022 7:21:49 AM Ordering physician: ALVERTO CEJA Indication: Routine surveillance of moderate or severe valvular stenosis (>1yr) Technologist: Estefania De Souza [facility] Interpreting physician: Jose Manuel Vasquez MD PATIENT: Name: MR. THUY KIM : 1965 Age: 57 years Gender: M History of congenital heart disease. Primary rhythm: sinus. Height: 180.34 cm BSA: 2.12 m? Weight: 89.81 kg BMI: 27.6 kg/m? Heart rate 59 bpm Blood pressure 119/81 mmHg Color Doppler was utilized to interrogate the cardiac valves assessed and spectral Doppler was utilized to determine the flow velocities and pressure gradients reported in this exam. MEASUREMENTS: Value Indexed Normal Max aortic dimension 4.2 cm Ao < 3.8 Left atrial volume 44 ml (biplane A-L) 21 ml/m? Prasanna <= 34 LV ID (diastole) 5.1 cm (2D) 2.39 cm/m? LV ID (systole) 3.4 cm (2D) 1.61 cm/m? IVS, leaflet tips 1.1 cm (2D) Posterior wall thickness 0.8 cm (2D) Left ventricular mass 174 g (2D) 82 g/m? LV stroke volume 72 ml (2D biplane) LVOT stroke volume 91 ml 43 ml/m? LV end diastolic volume 111 ml (2D biplane) 52.2 ml/m? 34<=EDVi<75 LV end systolic volume 39 ml (2D biplane) 18.3 ml/m? Ejection Fraction 65 % (2D biplane) EF > 52 FINDINGS: LEFT VENTRICLE The left ventricle is normal in size. Left ventricular systolic function is normal. Normal left ventricular diastolic function. Mitral annular lateral E/e': 8.1. Mitral annular septal E/e': 11.2. Wall Motion: All scored segments are normal. RIGHT VENTRICLE The right ventricle is normal in size. Right ventricular systolic function is normal. RV systolic tissue Doppler velocity is 7.7 cm/s. Tricuspid annular displacement is 0.9 cm. Estimated right ventricular systolic pressure is likely underestimated due to a weak or incomplete tricuspid regurgitation signal and is, at least, 19 mmHg consistent with normal pulmonary artery pressures. Estimated right atrial pressure is 3 mmHg based on IVC assessment. LEFT ATRIUM The left atrial cavity is normal in size. RIGHT ATRIUM The right atrial cavity is normal in size. Inferior Vena Cava: The inferior vena cava appears normal measuring 2.0 cm. The vessel decreases greater than 50 percent with inspiration. MITRAL VALVE There is trace mitral valve regurgitation. There is mild thickening. The pressure half time is 38 msec. The peak mitral E/A ratio is 0.89. The average mitral E/e' ratio is 9.7. The mitral flow deceleration time is 132 msec. TRICUSPID VALVE The tricuspid valve leaflets are structurally normal. There is trace tricuspid valve regurgitation. AORTIC VALVE There is moderate aortic valve stenosis caused by calcified valve. There is trace aortic valve regurgitation. Bicuspid aortic valve. There is moderate thickening. There is moderate calcification. The peak gradient is 21 mmHg (peak velocity = 227.0 cm/s). The mean gradient is 13 mmHg. The LVOT mean velocity is 54.9 cm/s. The LVOT diameter is 2.3 cm. The aortic VTI is 59.3 cm. The mean velocity in the aortic valve is 161.0 cm/s. The dimensionless valve index is 0.37. AV area is 1.53 cm? (0.72 cm?/m?) by continuity, VTI. The LVOT stroke volume index is 43 ml/m?. PULMONIC VALVE The pulmonic valve cusps are structurally normal. There is trace pulmonic valve regurgitation. AORTA The visualized aorta is dilated. Measurements - Mid ascending aorta 4.2 cm. Distal ascending aorta 4.2 cm. PULMONARY ARTERIES The pulmonary arteries are unseen or not interrogated. INTERATRIAL SEPTUM There is no evidence of intracardiac shunting as detected by Doppler. INTERVENTRICULAR SEPTUM There is no flow through the interventricular septum as detected by Doppler. PERICARDIUM There is an epicardial fat pad. CONCLUSIONS: - Exam indication: Routine surveillance of moderate or severe valvular stenosis (>1yr) - The left ventricle is normal in size. Left ventricular systolic function is normal. EF = 65 ? 5% (2D biplane) Normal left ventricular diastolic function. - The right ventricle is normal in size. Right ventricular systolic function is normal. - The visualized aorta is dilated with a maximal dimension of 4.2 cm. - Bicuspid aortic valve. There is trace aortic valve regurgitation. There is moderate aortic valve stenosis caused by calcified valve. AV area is 1.53 cm? (0.72 cm?/m?) by continuity, VTI. The peak gradient is 21 mmHg, the mean gradient is 13 mmHg and the dimensionless valve index is 0.37. - Estimated right ventricular systolic pressure is likely underestimated due to a weak or incomplete tricuspid regurgitation signal and is, at least, 19 mmHg consistent with normal pulmonary artery pressures. Estimated right atrial pressure is 3 mmHg based on IVC assessment. - Exam was compared with the prior CC echocardiograph (more content not included)... Normal [facility] Absolute lymphocyte counton 07-02-2022 Lymphocytes Auto (Unsp spec) [#/Vol] 0.57 10*3/uL 0.83-4.51 [facility] Work Phone: Lymphocytes Auto (Unsp spec) [#/Vol] 3.12 10*3/uL 0.83-4.51 [facility] Work Phone: Basophil percentageon 2021 Basophil percentage 2.9 mg/dL 2.5-4.9 [facility] Work Phone: Basophils/100 WBC (Bld) 0.0 % 0-1 [facility] Work Phone: Bilirubin [Mass/Vol] 1.00 mg/dL 0.20-1.00 [facility] Work Phone: Comment on above: For patients on eltr ombopag therapy, use of Dimension [place] TBIL is not recommended. Chloride [Moles/Vol] 110 mmol/L 98-107 [facility] Work Phone: Eosinophils/100 WBC (Bld) 0.0 % 0-5 [facility] Work Phone: Glucose [Mass/Vol] 187 mg/dL 74-106 [facility] Work Phone: Comment on above: Fasting Glucose resu lt greater than or equal to 126 mg/dL suggests DIABETES MELLITUS per A.D.A. criteria. Neutrophils (Bld) [#/Vol] 5.8 10*3/uL 2.0-7.7 [facility] Work Phone: Neutrophils/100 WBC (Bld) 87.1 % 47-70 [facility] Work Phone: Potassium [Moles/Vol] 3.8 mmol/L 3.5-5.1 [facility] Work Phone: Protein [Mass/Vol] 7.3 g/dL 6.4-8.2 [facility] Work Phone: Sodium [Moles/Vol] 140 mmol/L 136-145 [facility] [place] Work Phone: WBC (Bld) [#/Vol] 6.6 10*3/uL 4.4-11.0 [facility] Work Phone: Basophils/100 WBC (Bld) 0.5 % 0-1 [facility] Work Phone: Chloride [Moles/Vol] 108 mmol/L 98-107 [facility] Work Phone: Eosinophils/100 WBC (Bld) 1.9 % 0-5 [facility] Work Phone: Glucose [Mass/Vol] 102 mg/dL 74-106 [facility] Work Phone: Comment on above: Fasting Glucose resu lt from 100 to 125 mg/dL suggests IMPAIRED HOMEOSTASIS per A.D.A. criteria. Neutrophils (Bld) [#/Vol] 4.7 10*3/uL 2.0-7.7 [facility] Work Phone: Neutrophils/100 WBC (Bld) 54.2 % 47-70 [facility] Work Phone: Potassium [Moles/Vol] 3.3 mmol/L 3.5-5.1 [facility] Work Phone: Sodium [Moles/Vol] 142 mmol/L 136-145 [facility] Work Phone: WBC (Bld) [#/Vol] 8.6 10*3/uL 4.4-11.0 [facility] Work Phone: Blood erythrocytes count (nu mber/volume)on 07-02-2022 RBC (Bld) [#/Vol] 5.26 10*6/uL 4.6-6.2 [facility] Work Phone: RBC (Bld) [#/Vol] 5.08 10*6/uL 4.6-6.2 [facility] Work Phone: Blood hemoglobin measurement (mass/volume)on 07-02-2022 Hemoglobin (Bld) [Mass/Vol] 15.9 g/dL 13.0-16.5 [facility] Work Phone: Hemoglobin (Bld) [Mass/Vol] 15.4 g/dL 13.0-16.5 [facility] Work Phone: Blood lymphocytes/100 leukoc yteson 07-02-2022 Lymphocytes/100 WBC (Bld) 8.6 % -41 [facility] Work Phone: Lymphocytes/100 WBC (Bld) 36.1 % [facility] Work Phone: Blood manual differential co mment interpretation (narrative result)on 07-02-2022 Manual differential comment Sukhjinder (Bld) [Interp] SCANNED [facility] Work Phone: [phone] Comment on above: LYMPHOPENIA NOTED Blood monocytes/100 leukocyt eson 07-02-2022 Monocytes/100 WBC (Bld) 4.1 % 0-10 [facility] Work Phone: Monocytes/100 WBC (Bld) 6.8 % 0-10 [facility] Work Phone: Blood platelet mean volumeon 07-02-2022 Platelet mean volume (Bld) [Entitic vol] 11.6 fL 6.2-12.0 [facility] Work Phone: Platelet mean volume (Bld) [Entitic vol] 11.7 fL 6.2-12.0 [facility] Work Phone: Determination of erythrocyte mean corpuscular volume (MCV)on 07-02-2022 MCV (RBC) [Entitic vol] 88.0 fL 80-94 [facility] Work Phone: MCV (RBC) [Entitic vol] 89.4 fL 80-94 [facility] Work Phone: Hematocrit Auto (Bld) [Volum e fraction]on 07-02-2022 Hematocrit (Bld) [Volume fraction] 46.3 % 40-54 [facility] Work Phone: Hematocrit (Bld) [Volume fraction] 45.4 % 40-54 [facility] Work Phone: INR in Blood by Coagulation assayon 07-02-2022 INR Coag (Bld) [Relative time] 1.0 {INR} [facility] Work Phone: [phone] Laboratory - Chemistry and C hemistry - challengeon 07-02-2022 ALP [Catalytic activity/Vol] 75 U/L 45-117 [facility] Work Phone: ALT [Catalytic activity/Vol] 29 U/L 16-61 [facility] Work Phone: CK [Catalytic activity/Vol] 94 U/L 39-308 [facility] Work Phone: CO2 [Moles/Vol] 23.0 mmol/L 21.0-32.0 [facility] Work Phone: Free T4 [Mass/Vol] 1.06 ng/dL 0.76-1.46 [facility] Work Phone: Globulin (S) [Mass/Vol] 3.2 g/dL 2.2-4.2 [facility] Work Phone: Magnesium [Mass/Vol] 2.1 mg/dL 1.6-2.6 [facility] Work Phone: Urea nitrogen/Creatinine [Mass ratio] 18.6 mg/mg 10-20 [facility] Work Phone: CO2 [Moles/Vol] 29.0 mmol/L 21.0-32.0 [facility] Work Phone: Urea nitrogen/Creatinine [Mass ratio] 18.9 mg/mg 1020 [facility] Work Phone: Laboratory - Coagulationon 0 07-02-2022 PT Coag (PPP) [Time] 13.1 s 11.7-14.9 [facility] Work Phone: [phone] Laboratory - Hematology and Cell countson 07-02-2022 Erythrocyte distribution width (RBC) [Entitic vol] 38.6 fL 35.1-43.9 [facility] Work Phone: Erythrocyte distribution width (RBC) [Ratio] 12.0 % 11.6-14.6 [facility] Work Phone: Immature granulocytes/100 WBC (Bld) 0.200 % 0.0-0.9 [facility] Work Phone: [phone] Comment on above: IG% - Immature Granu locytes (promyelocytes, myelocytes and metamyelocytes) > 1% indicates that a LEFT SHIFT is Present. MCH (RBC) [Entitic mass] 30.2 pg 27.0-32.0 [facility] Work Phone: [phone] Nucleated RBC/100 WBC (Bld) [Ratio] 0 % 0-5 [facility] Work Phone: [phone] Erythrocyte distribution width (RBC) [Entitic vol] 40.0 fL 35.1-43.9 [facility] Work Phone: Erythrocyte distribution width (RBC) [Ratio] 12.2 % 11.6-14.6 [facility] Work Phone: Immature granulocytes/100 WBC (Bld) 0.500 % 0.0-0.9 [facility] Work Phone: [phone] Comment on above: IG% - Immature Granu locytes (promyelocytes, myelocytes and metamyelocytes) > 1% indicates that a LEFT SHIFT is Present. MCH (RBC) [Entitic mass] 30.3 pg 27.0-32.0 [facility] Work Phone: MCHC Auto (RBC) [Mass/Vol]on 07-02-2022 MCHC (RBC) [Mass/Vol] 34.3 g/dL -36 [facility] Work Phone: MCHC (RBC) [Mass/Vol] 33.9 g/dL 36 [facility] Work Phone: [phone] No Panel Informationon 07-02 Troponin I High Sensitivity < 3 pg/mL 3.0-78.0 [facility] Work Phone: Comment on above: Please Note: New Sandra t Units and Gender Specific Reference Ranges. For more information see Policy Stat Procedure [place] High Sensitivity Troponin (TNIH) and attachments. Estimated Creatinine Clearance Calc 10.01 ml/min [facility] Work Phone: Estimated GFR (MDRD) Amer 96 mL/min >60 [facility] Work Phone: Comment on above: GFR Calc Estimated GFR (MDRD) Non-Af Amer 79 mL/min >60 [facility] Work Phone: Comment on above: Non- GFR Calc Free Triiodothyronine (T3) pg/dL 2.0 pg/mL 2.18-3.98 [facility] Work Phone: Thyroid Stimulating Hormone (TSH) 1.01 uIU/mL 0.358-3.74 [facility] Work Phone: Estimated Creatinine Clearance Calc 82.36 ml/min [facility] Work Phone: Estimated GFR (MDRD) Amer 92 mL/min >60 [facility] Work Phone: Comment on above: GFR Calc Estimated GFR (MDRD) Non-Af Amer 76 mL/min >60 [facility] Work Phone: Comment on above: Non- GFR Calc Troponin I High Sensitivity 4 pg/mL 3.0-78.0 [facility] Work Phone: Comment on above: Please Note: New Sandra t Units and Gender Specific Reference Ranges. For more information see Policy Stat Procedure [place] High Sensitivity Troponin (TNIH) and attachments. Platelets bldon 07-02-2022 Platelets (Bld) [#/Vol] 146 10*3/uL 150-450 [facility] Work Phone: Platelets (Bld) [#/Vol] 148 10*3/uL 150-450 [facility] Work Phone: Serum or plasma albumin gretchen urement (mass/volume)on 07-02-2022 Albumin [Mass/Vol] 4.1 g/dL 3.2-5.0 [facility] Work Phone: Serum or plasma albumin/glob ulin mass ratioon 07-02-2022 Albumin/Globulin [Mass ratio] 1.3 {ratio} 0.9-2.4 [facility] Work Phone: Serum or plasma calcium gretchen urement (mass/volume)on 07-02-2022 Calcium [Mass/Vol] 9.2 mg/dL 8.5-10.1 [facility] Work Phone: Calcium [Mass/Vol] 8.7 mg/dL 8.5-10.1 [facility] Work Phone: [phone] Serum or plasma creatinine m easurement (mass/volume)on 07-02-2022 Creatinine [Mass/Vol] 1.02 mg/dL 0.70-1.30 [facility] Work Phone: Comment on above: The validity of the calculated GFR & GFRAA in patients over 70 years has not been determined. Clinical correlation is essential. Creatinine [Mass/Vol] 1.06 mg/dL 0.70-1.30 [facility] Work Phone: Comment on above: The validity of the calculated GFR & GFRAA in patients over 70 years has not been determined. Clinical correlation is essential. Serum or plasma urea nitroge n measurement (mass/volume)on 07-02-2022 Urea nitrogen [Mass/Vol] 19 mg/dL 05-23 [facility] Work Phone: [phone] Urea nitrogen [Mass/Vol] 20 mg/dL 05-23 [facility] Work Phone: Thin prep Papanicolaou smear with manual screeningon 07-02-2022 Thin prep Papanicolaou smear with manual screening 15 U/L 15-37 [facility] Work Phone: Thin prep Papanicolaou smear with manual screening 7 5-15 [facility] Work Phone: [phone] Thin prep Papanicolaou smear with manual screening 5 5-15 [facility] Work Phone: HEAVY METALS SCRN BLon 06-30 Arsenic (Bld) [Mass/Vol] <10.0 <=1 2.0 ug/L [facility] Lead (Bld) [Mass/Vol] ug/dL <=4.9 ug/dL [facility] Mercury 3.1 ug/L <=10.0 ug/L [facility] VITAMIN B6/PYRIDOXINon 06-29 Pyridoxine [Mass/Vol] 72.5 nmol/L 20.0 - 125.0 nmol/L [facility] Comprehensive metabolic 2000 panelon 06-25-2022 Albumin [Mass/Vol] 4.6 g/dL 3.9 - 4.9 g/dL [facility] ALP [Catalytic activity/Vol] 84 U/L 38 - 113 U/L [facility] ALT [Catalytic activity/Vol] 21 U/L 10 - 54 U/L [facility] Anion gap [Moles/Vol] 8 mmol/L Low 9 - 18 mmol/L [facility] AST [Catalytic activity/Vol] 20 U/L 14 - 40 U/L [facility] Bilirubin [Mass/Vol] 0.8 mg/dL 0.2 - 1 .3 mg/dL [facility] Calcium [Mass/Vol] 9.2 mg/dL 8.5 - 10. 2 mg/dL [facility] Chloride [Moles/Vol] 104 mmol/L 97 - 10 5 mmol/L [facility] CO2 [Moles/Vol] 27 mmol/L 22 - 30 mmol/L [facility] Creatinine [Mass/Vol] 1.04 mg/dL 0.73 - 1.22 mg/dL [facility] Estimated Glomerular Filtration Rate 83 mL/min/1.73m >=60 mL/min/1.7 3m [facility] Glucose [Mass/Vol] 99 mg/dL 74 - 99 mg/dL [facility] Potassium [Moles/Vol] 3.9 mmol/L 3.7 - 5.1 mmol/L [facility] Protein [Mass/Vol] 6.9 g/dL 6.3 - 8.0 g/dL [facility] Sodium [Moles/Vol] 139 mmol/L 136 - 144 mmol/L [facility] Urea nitrogen [Mass/Vol] 16 mg/dL 9 - 24 mg/dL [facility] FERRITIN BLDon 06-25-2022 Ferritin [Mass/Vol] 357.0 ng/mL 30.3 - 565.7 ng/mL [facility] Iron and Iron binding capaci ty panelon 06-25-2022 Iron [Mass/Vol] 78 ug/dL 41 - 186 ug/dL [facility] Iron binding capacity [Mass/Vol] 343 ug/dL 232 - 386 ug/dL [facility] Iron/TIBC [Molar ratio] 22.7 % 15.0 - 57.0 % [facility] MAGNESIUM BLDon 06-25-2022 Magnesium [Mass/Vol] 2.2 mg/dL 1.7 - 2 .3 mg/dL [facility] PTH INTACT BLDon 06-25-2022 Parathyrin.intact [Mass/Vol] 34 pg/mL 15 - 65 pg/mL [facility] VITAMIN B12 BLOODon 06-25-20 Cobalamin (Vitamin B12) [Mass/Vol] 1370 pg/mL High 232 - 1,245 pg/mL [facility] VITAMIN D 25 HYDROXYon 06-25 25-hydroxyvitamin D3 [Mass/Vol] 45.9 ng/mL 31.0 - 80.0 ng/mL [facility] CBC W Auto Differential pane l (Bld)on 06-24-2022 Abs Immature Gran <0.10 k/uL [facility] Basophils (Bld) [#/Vol] <0.11 k/uL [facility] Bas[facility]/100 WBC (Bld) 0.4 % [facility] Differential cell count method Nom (Bld) Auto [facility] Eosinophils (Bld) [#/Vol] 0.11 10*3/uL <0.46 k/ uL [facility] Eosinophils/100 WBC (Bld) 2.0 % [facility] Erythrocyte distribution width (RBC) [Ratio] 12.0 % 11.5 - 15.0 % [facility] Hematocrit (Bld) [Volume fraction] 47.1 % 39.0 - 51.0 % [facility] Hemoglobin (Bld) [Mass/Vol] 15.8 g/dL 13.0 - 17.0 g/dL [facility] Immature Gran % 0.2 % [facility] Lymphocytes (Bld) [#/Vol] 1.85 10*3/uL 1. 00 - 4.00 k/uL [facility] Lymphocytes/100 WBC (Bld) 34.5 % [facility] MCH (RBC) [Entitic mass] 30.1 pg 26. 0 - 34.0 pg [facility] MCHC (RBC) [Mass/Vol] 33.5 g/dL 30.5 - 36.0 g/dL [facility] MCV (RBC) [Entitic vol] 89.7 fL 80.0 - 100.0 fL [facility] Monocytes (Bld) [#/Vol] 0.44 10*3/uL <0.87 k/uL [facility] Monocytes/100 WBC (Bld) 8.2 % [facility] Neutrophils (Bld) [#/Vol] 2.94 10*3/uL 1. 45 - 7.50 k/uL [facility] Neutrophils/100 WBC (Bld) 54.7 % [facility] Nucleated RBC (Bld) [#/Vol] <0.01 k/uL [facility] Nucleated RBC/100 WBC (Bld) [Ratio] 0.0 /100 WBC [facility] Platelet mean volume (Bld) [Entitic vol] 11.9 fL 9.0 - 12.7 fL [facility] Platelets (Bld) [#/Vol] 157 10*3/uL 150 - 400 k/uL [facility] RBC (Bld) [#/Vol] 5.25 10*6/uL 4.20 - 6.00 m/uL [facility] WBC (Bld) [#/Vol] 5.37 10*3/uL 3.70 - 11.00 k/uL [facility] Calcium.ionized [Moles/Vol]o n 06-24-2022 Calcium.ionized (Bld) [Mass/Vol] 1.22 mmol/L 1.08 - 1.30 mmol/L [facility] Calcium.ionized adjusted to pH 7.4 (Bld) [Moles/Vol] 1.17 mmol/L 1.08 - 1.30 mmol/L [facility] THYROID PEROXIDASE ANTIBODY BLOODon 06-13-2022 TPO Ab Qn 307.6 [IU]/mL High <5.6 IU/mL [facility] Testost Totalon 07-04-2019 Testoster Tot 311 ng/dL Normal 264-916 [facility] Comment on above: Result Comment: Adul t male reference interval is based on a population of healthy nonobese males (BMI <30) between 19 and 39 years old. ernestina Christian.al. JCEM 2017,102;4324-7985. PMID: 32624605. Performed At: [facility] [id number] Sb Newton PhD Ph:[phone] Performed By: #### 2 [id number] #### ISHMAEL [employer] [address] [place] [address] Auto Diffon 07-02-2019 Basophils (Bld) [#/Vol] 0.0 E3/mcL Normal 0.0-0.2 [facility] Comment on above: Order Comment: Order Added by Discern Expert. Performed By: #### 2 [id number] #### ISHMAEL RemH[employer] [address] [place] [address] Basophils/100 WBC (Bld) 0.5 % Normal 0.0-2.0 [facility] Comment on above: Order Comment: Order Added by Discern Expert. Performed By: #### 2 [id number] #### ISHMAEL Rem[employer] [address] [place] [address] Eos Absolute 0.1 E3/mcL Normal 0.0-0.7 [facility] Comment on above: Order Comment: Order Added by Discern Expert. Performed By: #### 2 [id number] #### ISHMAEL [employer] [address] [place] [address]507 Eosinophils/100 WBC (Bld) 2.1 % Normal 0.0-11.0 [facility] Comment on above: Order Comment: Order Added by Discern Expert. Performed By: #### 2 [id number] #### ISHMAEL [employer] [address] [place] [address] 28529 Lymphocytes (Bld) [#/Vol] 2.0 E3/mcL Normal 1.2-3.4 [facility] Comment on above: Order Comment: Order Added by Discern Expert. Performed By: #### 2 [id number] #### ISHMAEL [employer] [address] [place] [address] Lymphocytes/100 WBC (Bld) 33.1 % Normal 20.0-55.0 [facility] Comment on above: Order Comment: Order Added by Discern Expert. Performed By: #### 2 [id number] #### ISHMAEL Rem[employer] [address] [place] [address] Treg[place] Absolute 0.5 E3/mcL Normal 0.0-0.7 [facility] Comment on above: Order Comment: Order Added by Discern Expert. Performed By: #### 2 [id number] #### ISHMAEL [employer] [address] [place] [address] Monocytes/100 WBC (Bld) 7.8 % Normal 0.0-10.0 [facility] Comment on above: Order Comment: Order Added by Discern Expert. Performed By: #### 2 [id number] #### ISHMAEL [employer] [address] [place] [address] Neutro Absolute 3.4 E3/mcL Normal 1.4-6.5 [facility] Comment on above: Order Comment: Order Added by Discern Expert. Performed By: #### 2 [id number] #### ISHMAEL [employer]os[employer] [address] [place], [place] [id number] Neutro Auto 56.5 % Normal 37.0-75.0 [facility] Comment on above: Order Comment: Order Added by Discern Expert. Performed By: #### 2 [id number] #### ISHMAEL [employer] [address] [place] [address] CBC w/ Auto Diffon 9 Erythrocyte distribution width (RBC) [Ratio] 13.3 % Normal 11.5-14.5 [facility] Comment on above: Performed By: #### 2 [id number] #### ISHMAEL [employer] [address] [place] [address]3526 Hematocrit (Bld) [Volume fraction] 46.1 % Normal 42.0-52.0 [facility] Comment on above: Performed By: #### 2 [id number] #### ISHMAEL [employer] [address] [place] [address] Hemoglobin (Bld) [Mass/Vol] 15.8 g/dL Normal 13.5-18.0 [facility] Comment on above: Performed By: #### 2 [id number] #### ISHMAEL YolisHemo [address] [place] [address] MCH (RBC) [Entitic mass] 31.0 pg Normal 27.0-31.0 [facility] Comment on above: Performed By: #### 2 [id number] #### ISHMAEL [employer] [address] [place] [address] MCHC (RBC) [Mass/Vol] 34.4 g/dL Normal 33.0-37.0 [facility] Comment on above: Performed By: #### 2 [id number] #### ISHMAEL RemHemo [address] [place] [address] MCV (RBC) [Entitic vol] 90.0 fL Normal 78.0-100.0 [facility] Comment on above: Performed By: #### 2 [id number] #### ISHMAEL Lagos[employer]emo [address] [place] [address] Platelet mean volume (Bld) [Entitic vol] 9.8 fL Normal 7.4-11.0 [facility] Comment on above: Performed By: #### 2 [id number] #### ISHMAEL RemHemo [address] [place] [address] Platelets (Bld) [#/Vol] 153 E3/mcL Normal 130-400 [facility] Comment on above: Performed By: #### 2 [id number] #### ISHMAEL RemHemo [address] [place] [address]67 RBC (Bld) [#/Vol] 5.12 E6/mcL Normal 3.90-6.10 [facility] Comment on above: Performed By: #### 2 [id number] #### ISHMAEL RemHemo [facility] [place] [address] WBC (Bld) [#/Vol] 6.0 E3/mcL Normal 3.6-11.0 [facility] Comment on above: Performed By: #### 2 [id number] #### ISHMAEL RemHemo [address] [place] [address] CMPon 07-02-2019 Albumin [Mass/Vol] 4.3 g/dL Normal 3.4-5.0 [facility] Comment on above: Performed By: #### 2 [id number] #### ISHMAEL [employer] [address] [place] [address] Albumin/Globulin [Mass ratio] 1.6 {ratio} Normal 1.1-1.9 [facility] Comment on above: Performed By: #### 2 [id number] #### ISHMAEL [employer] [address] [place] [address] Alk Phos 67 Int._Unit/L Normal 33-120 [facility] Comment on above: Performed By: #### 2 [id number] #### ISHMAEL [employer] [address] [place] [address] ALT [Catalytic activity/Vol] 29 Int._Unit/L Normal 10-52 [facility] Comment on above: Performed By: #### 2 [id number] #### ISHMAEL [employer] [address] [place] [address] Anion gap [Moles/Vol] 12 mmol/L Normal 10-20 [facility] Comment on above: Performed By: #### 2 [id number] #### ISHMAEL [employer] [address] [place] [address] AST [Catalytic activity/Vol] 20 Int._Unit/L Normal 9-39 [facility] Comment on above: Performed By: #### 2 [id number] #### ISHMAEL [employer] [address] [place] [address] Bili Total 0.65 mg/dL Normal 0.00-1.20 [facility] Comment on above: Performed By: #### 2 [id number] #### ISHMAEL [employer] [address] [place] [address] Calcium [Mass/Vol] 9.2 mg/dL Normal 8.6-10.3 [facility] Comment on above: Performed By: #### 2 [id number] #### ISHMAEL [employer] [address] [place] [address] Chloride [Moles/Vol] 104 mmol/L Normal 98-107 [facility] Comment on above: Performed By: #### 2 [id number] #### ISHMAEL [employer] [address] [place] [address] CO2 [Moles/Vol] 26.0 mmol/L Normal 21.0-32.0 [facility] Comment on above: Performed By: #### 2 [id number] #### ISHMAEL [employer] [address] [place] [address] Creatinine [Mass/Vol] 1.1 mg/dL Normal 0.5-1.3 [facility] Comment on above: Performed By: #### 2 [id number] #### ISHMAEL [employer] [address] [place] [address] Globulin (S) [Mass/Vol] 3.0 g/dL Normal 2.0-4.0 [facility] Comment on above: Performed By: #### 2 [id number] #### ISHMAEL [employer] [address] [place] [address] Glucose [Mass/Vol] 105 mg/dL High 70-99 [facility] Comment on above: Performed By: #### 2 [id number] #### ISHMAEL [employer] [facility] [place] [address] Potassium [Moles/Vol] 3.9 mmol/L Normal 3.5-5.3 [facility] Comment on above: Performed By: #### 2 330908 #### ISHMAEL [employer] [facility] [place] [address] Protein [Mass/Vol] 7.0 g/dL Normal 6.4-8.2 [facility] Comment on above: Performed By: #### 2 [id number] #### ISHMAEL [employer] [address] [place] [address] Sodium [Moles/Vol] 138 mmol/L Normal 136-145 [facility] Comment on above: Performed By: #### 2 [id number] #### ISHMAEL [employer] [address] [place] [address] Urea nitrogen [Mass/Vol] 20 mg/dL Normal 6-23 [facility] Comment on above: Performed By: #### 2 [id number] #### ISHMAEL [employer] [address] [place] [address] Urea nitrogen/Creatinine [Mass ratio] 18.2 ratio Normal 5.4-30.0 [facility] Comment on above: Performed By: #### 2 [id number] #### ISHMAEL [employer] [address] [place] [address] Lipid Profileon 07-02-2019 Cholesterol [Mass/Vol] 195 mg/dL Normal 0-199 [facility] Comment on above: Performed By: #### 3 [id number] #### ISHMAEL [employer] [address] [place] [address] Cholesterol in HDL [Mass/Vol] 58 mg/dL Normal 40-60 [facility] Comment on above: Performed By: #### 3 [id number] #### ISHMAEL [employer] [address] [place] [address] Cholesterol in LDL [Mass/Vol] 96 mg/dL Normal 0-130 [facility] Comment on above: Performed By: #### 3 [id number] #### ISHMAEL [employer] [address] [place] [address] Cholesterol in VLDL [Mass/Vol] 41 mg/dL High 0-40 [facility] Comment on above: Performed By: #### 3 [id number] #### ISHMAEL [employer] [address] [place] [address] Triglyceride [Mass/Vol] 207 mg/dL High 0-149 [facility] Comment on above: Result Comment: AGE DESIRABLE BORDERLINE HIGH 91 D - 9 Y 0 - 74 75 - 99 > 100 10 - 19 Y 0 - 89 90 - 129 > 130 20 - 24 Y 0 - 114 115 - 149 > 150 > 25 0 - 149 150 - 199 200 - 499 Performed By: #### 3 [id number] #### ISHMAEL [employer] [address] [place] [address] TSHon 07-02-2019 TSH Qn 4.19 mcIU/mL Normal 0.30-5.60 [facility] Comment on above: Performed By: #### 2 [id number] #### ISHMAEL [employer] [address] [place] [address] eGFRon 07-02-2019 GFR/1.73 sq M predicted among non-blacks MDRD (S/P/Bld) [Vol rate/Area] mL/min/{1.73_m2} Normal [facility] Comment on above: Order Comment: Order added by [employer] Expert. Performed By: #### [id number] #### [facility] [address] [place] [address] Vital Signs Date Time Vital Sign Value Performing Clinician Facility 02-05-2025 07:23-0400 Body mass index (BMI) [Ratio] 26.07 kg/m2 Rosa Sixto CARDIAC CATHETERIZATION TECHNICIAN.TWIST PACKER Work Phone: [facility] 02-05-2025 07:23-0400 Body weight 89.63 kg Rosa Sixto CARDIAC CATHETERIZATION TECHNICIAN.TWIST PACKER Work Phone: [facility] 02-05-2025 07:23-0400 Diastolic blood pressure 75 mm[Hg] Rosa Stutzma n CARDIAC CATHETERIZATION TECHNICIAN.TWIST PACKER Work Phone: [facility] Comment on above: Bp machine 02-05-2025 07:23-0400 Heart rate 61 /min Rosa Sixto CARDIAC CATHETERIZATION TECHNICIAN.TWIST PACKER Work Phone: [facility] 02-05-2025 07:23-0400 SaO2% (BldA) [Mass fraction] 98 % Rosa Sixto CARDIAC CATHETERIZATION TECHNICIAN.TWIST PACKER Work Phone: [facility] 02-05-2025 07:23-0400 Systolic blood pressure 121 mm[Hg] Rosa Sixto CARDIAC CATHETERIZATION TECHNICIAN.TWIST PACKER Work Phone: [facility] Comment on above: Bp machine 07-16-2024 09:54-0400 Body mass index (BMI) [Ratio] 24.99 kg/m2 Rosa Sixto CARDIAC CATHETERIZATION TECHNICIAN.TWIST PACKER Work Phone: [facility] 07-16-2024 09:54-0400 Body weight 85.91 kg Rosa Sixto CARDIAC CATHETERIZATION TECHNICIAN.TWIST PACKER Work Phone: [facility] 07-16-2024 09:54-0400 Diastolic blood pressure 62 mm[Hg] Rosa Stutzma n CARDIAC CATHETERIZATION TECHNICIAN.TWIST PACKER Work Phone: [facility] 07-16-2024 09:54-0400 Heart rate 98 /min Rosa Sixto CARDIAC CATHETERIZATION TECHNICIAN.TWIST PACKER Work Phone: [facility] 07-16-2024 09:54-0400 Respiratory rate 16 /min Rosa Sixto CARDIAC CATHETERIZATION TECHNICIAN.TWIST PACKER Work Phone: [facility] 07-16-2024 09:54-0400 SaO2% (BldA) [Mass fraction] 97 % Rosa Henson CARDIAC CATHETERIZATION TECHNICIAN.TWIST PACKER Work Phone: [facility] 07-16-2024 09:54-0400 Systolic blood pressure 102 mm[Hg] Rosa Henson CARDIAC CATHETERIZATION TECHNICIAN.TWIST PACKER Work Phone: [facility] 07-05-2024 11:20-0400 SaO2% (BldA) [Mass fraction] 97 % ROSA HENSON [facility] Comment on above: Order Comment: Specimen Type: ARTERIAL B LOOD SPECIMENOrdering Facility: [facility] Address: [address] [place] [address] Performed By: #### A LLBG ####[facility] LABIA [id number] [address] [place] 07-05-2024 07:22-0400 SaO2% (BldA) [Mass fraction] 99 % ROSA NEVILLEUTZMAN [facility] Comment on above: Order Comment: Specimen Type: ARTERIAL B LOOD SPECIMENOrdering Facility: [facility] Address: [address] [place] [address] Performed By: #### A LLBG ####[facility] [id number] [address] [place] 07-05-2024 04:11-0400 SaO2% (BldA) [Mass fraction] 98 % ROSA HENSON [facility] Comment on above: Order Comment: Specimen Type: ARTERIAL B LOOD SPECIMENOrdering Facility: [facility] Address: [address] [place] [address] Performed By: #### A LLBG ####[facility] LABIA [id number] [place] [id number] [place] 07-05-2024 00:26-0400 SaO2% (BldA) [Mass fraction] 99 % ROSA HENSON [facility] Comment on above: Order Comment: Specimen Type: ARTERIAL B LOOD SPECIMENOrdering Facility: [facility] Address: [address] [place] [id number] Performed By: #### A LLBG ####[facility] LABIA [id number] [place] [id number] [place] 07-04-2024 20:05-0400 SaO2% (BldA) [Mass fraction] 98 % ROSA HENSON [facility] Comment on above: Order Comment: Specimen Type: ARTERIAL B LOOD SPECIMENOrdering Facility: [facility] Address: [address] [place], [place] [id number] Performed By: #### A LLBG ####[facility] LABIA [id number] [place] [id number] [place] 07-04-2024 18:30-0400 SaO2% (BldA) [Mass fraction] 99 % ROSA [facility] Comment on above: Order Comment: Specimen Type: ARTERIAL B LOOD SPECIMENOrdering Facility: [facility] Address: [address] [place], [place] [id number] Performed By: #### A LLBG ####[facility] [id number] [place] [id number] [place] 07-04-2024 15:52-0400 SaO2% (BldA) [Mass fraction] 97 % ROSA [facility] Comment on above: Order Comment: Specimen Type: ARTERIAL B LOOD SPECIMENOrdering Facility: [facility] Address: [address] [place] [id number] Performed By: #### A LLBG ####[facility]IA [id number] [place] [id number] [place] 07-04-2024 13:38-0400 SaO2% (BldA) [Mass fraction] 99 % ROSA [facility] Comment on above: Order Comment: Specimen Type: ARTERIAL B LOOD SPECIMENOrdering Facility: [facility] Address: [address] [place] [id number] Performed By: #### A LLBG ####[facility] LABCLIA [id number] [place] [id number] [facility] 07-04-2024 11:51-0400 SaO2% (BldA) [Mass fraction] 98 % [facility] Comment on above: Order Comment: Specimen Type: ARTERIAL B LOOD SPECIMENOrdering Facility: [facility] Address: [address] [place] [address] Performed By: #### A LLBG ####[facility] LABIA [id number] [address] [place] 07-04-2024 10:39-0400 SaO2% (BldA) [Mass fraction] 99 % [facility] Comment on above: Order Comment: Specimen Type: ARTERIAL B LOOD SPECIMENOrdering Facility: [facility] Address: [address] [place] [address] Performed By: #### A LLBG ####[facility] LABIA [id number] [place] [id number] [place] 07-04-2024 09:59-0400 SaO2% (BldA) [Mass fraction] 99 % [facility] Comment on above: Order Comment: Specimen Type: ARTERIAL B LOOD SPECIMENOrdering Facility: [facility] Address: [address] [place], [place] [id number] Performed By: #### A LLBG ####[facility] LABIA [id number] [place] [id number] [place] 07-04-2024 09:18-0400 SaO2% (BldA) [Mass fraction] 99 % [facility] Comment on above: Order Comment: Specimen Type: ARTERIAL B LOOD SPECIMENOrdering Facility: [facility] Address: [address] [place] [address] Performed By: #### A LLBG ####[facility] LABCLIA [id number] [place] [id number] [facility] 07-04-2024 07:19-0400 SaO2% (BldA) [Mass fraction] 100 % ROSA HENSON [facility] Comment on above: Order Comment: Specimen Type: ARTERIAL B LOOD SPECIMENOrdering Facility: [facility] Address: [address] [place] [address] Performed By: #### A LLMG ####[facility] LABCLIA [id number] [address] OF [facility] 06-24-2024 08:59-0400 Body height 182.9 cm Karolina Jonas MD, PhD Work Phone: [facility] 06-24-2024 08:59-0400 Body mass index (BMI) [Ratio] 25.77 kg/m2 Karolina Jonas MD, PhD Work Phone: [facility] 06-24-2024 08:59-0400 Body weight 86.18 kg Karolina Jonas MD, PhD Work Phone: [facility] 06-24-2024 08:59-0400 Diastolic blood pressure 85 mm[Hg] Karolina reyna MD, PhD Work Phone: [facility] 06-24-2024 08:59-0400 Heart rate 95 /min Karolina Jonas MD, PhD Work Phone: [facility] 06-24-2024 08:59-0400 SaO2% (BldA) [Mass fraction] 100 % Karolina Jonas MD, PhD Work Phone: [facility] 06-24-2024 08:59-0400 Systolic blood pressure 144 mm[Hg] Karolina Jonas MD, PhD Work Phone: [facility] 05-29-2024 07:45-0400 Body height 184 cm Alverto Ceja DO Work Phone: [facility] 05-29-2024 07:45-0400 Body mass index (BMI) [Ratio] 25.86 kg/m2 Alverto Ceja DO Work Phone: [facility] 05-29-2024 07:45-0400 Body weight 87.54 kg Alverto Ceja DO Work Phone: [facility] 05-29-2024 07:45-0400 Diastolic blood pressure 56 mm[Hg] Alverto Ceja DO Work Phone: [facility] 05-29-2024 07:45-0400 Heart rate 50 /min Alverto Ceja DO Work Phone: [facility] 05-29-2024 07:45-0400 Respiratory rate 12 /min Alverto Ceaj DO Work Phone: [facility] 05-29-2024 07:45-0400 SaO2% (BldA) [Mass fraction] 99 % Alverto Ceja DO Work Phone: [facility] 05-29-2024 07:45-0400 Systolic blood pressure 114 mm[Hg] Alverto Ceja DO Work Phone: [facility] 07-26-2023 16:16-0400 Body temperature 97.3 [degF] Alverto Ceja DO Work Phone: [facility] 07-26-2023 16:16-0400 Body weight 88.91 kg Alverto Ceja DO Work Phone: [facility] 07-26-2023 16:16-0400 Diastolic blood pressure 70 mm[Hg] Alverto Ceja DO Work Phone: [facility] 07-26-2023 16:16-0400 Heart rate 64 /min Alverto Ceja DO Work Phone: [facility] 07-26-2023 16:16-0400 Respiratory rate 16 /min Alverto Ceja DO Work Phone: [facility] 07-26-2023 16:16-0400 Systolic blood pressure 120 mm[Hg] Alverto Ceja DO Work Phone: [facility] 03-08-2023 12:56-0400 Body height 182.[address] Alverto Ceja Work Phone: [facility] 03-08-2023 12:56-0400 Body mass index (BMI) [Ratio] 25.2 kg/m2 Dr. Alverto Ceja Work Phone: [facility] 03-08-2023 12:56-0400 Body weight 84.[address] Alverto Ceja Work Phone: [facility] 03-08-2023 12:56-0400 Diastolic blood pressure 80 mm[Hg] Dr. Alverto Ceja Work Phone: [facility] 03-08-2023 12:56-0400 Heart rate 78 /min Dr. Alverto Ceja Work Phone: [facility] 03-08-2023 12:56-0400 SaO2% (BldA) [Mass fraction] 96 % Dr. Alverto Ceja Work Phone: [facility] 03-08-2023 12:56-0400 Systolic blood pressure 135 mm[Hg] Dr. Alverto Ceja Work Phone: [facility] 03-06-2023 11:10-0400 Diastolic blood pressure 79 mm[Hg] Niranjan Ko MD Work Phone: [facility] 03-06-2023 11:10-0400 Heart rate 67 /min Niranjan Ko MD Work Phone: [facility] 03-06-2023 11:10-0400 Respiratory rate 16 /min Niranjan Ko MD Work Phone: [facility] 03-06-2023 11:10-0400 SaO2% (BldA) [Mass fraction] 99 % Niranjan Ko MD Work Phone: [facility] 03-06-2023 11:10-0400 Systolic blood pressure 125 mm[Hg] Niranjan Parker Work Phone: [facility] 03-06-2023 09:54-0400 Body temperature 98.29 [degF] Niranjan Ko MD Work Phone: [facility] 03-06-2023 09:54-0400 Body weight 82.6 kg Niranjan Ko MD Work Phone: [facility] 02-23-2023 15:06-0400 Body height 182.88 cm [facility] 02-23-2023 15:06-0400 Body weight 81.82 kg [facility] 02-21-2023 15:32-0400 Body temperature 97 [degF] Alverto Ceja DO Work Phone: [facility] 02-21-2023 15:32-0400 Body weight 82.56 kg Alverto Ceja DO Work Phone: [facility] 02-21-2023 15:32-0400 Diastolic blood pressure 80 mm[Hg] Alverto Ceja DO Work Phone: [facility] 02-21-2023 15:32-0400 Heart rate 60 /min Alverto Ceja DO Work Phone: [facility] 02-21-2023 15:32-0400 Respiratory rate 16 /min Alverto Ceja DO Work Phone: [facility] 02-21-2023 15:32-0400 Systolic blood pressure 110 mm[Hg] Alverto Ceja DO Work Phone: [facility] 12-16-2022 10:46-0500 Body temperature 97 [degF] Alverto Ceja DO Work Phone: [facility] 12-16-2022 10:46-0500 Body weight 84.37 kg Alverto Ceja DO Work Phone: [facility] 12-16-2022 10:46-0500 Diastolic blood pressure 80 mm[Hg] Alverto Ceja DO Work Phone: [facility] 12-16-2022 10:46-0500 Heart rate 80 /min Alverto Ceja DO Work Phone: [facility] 12-16-2022 10:46-0500 Respiratory rate 16 /min Alverto Ceja DO Work Phone: [facility] 12-16-2022 10:46-0500 Systolic blood pressure 118 mm[Hg] Alverto Ceja DO Work Phone: [facility] 11-04-2022 08:31-0500 Body weight 86.91 kg Dari Zurawick CARDIAC CATHETERIZATION TECHNICIAN.TWIST PACKER Work Phone: [facility] 11-04-2022 08:31-0500 Diastolic blood pressure 60 mm[Hg] Dari Zurawick CARDIAC CATHETERIZATION TECHNICIAN.TWIST PACKER Work Phone: [facility] 11-04-2022 08:31-0500 Heart rate 60 /min Dari Zurawick CARDIAC CATHETERIZATION TECHNICIAN.TWIST PACKER Work Phone: [facility] 11-04-2022 08:31-0500 Respiratory rate 18 /min Dari Zurawick CARDIAC CATHETERIZATION TECHNICIAN.TWIST PACKER Work Phone: [facility] 11-04-2022 08:31-0500 Systolic blood pressure 110 mm[Hg] Dari Zurawick CARDIAC CATHETERIZATION TECHNICIAN.TWIST PACKER Work Phone: [facility] 07-02-2022 17:54-0400 Diastolic blood pressure 81 mm[Hg] [facility] Work Phone: 07-02-2022 17:54-0400 Respiratory rate 16 /min [facility] Work Phone: 07-02-2022 17:54-0400 SaO2% (BldA) [Mass fraction] 98 % [facility] Work Phone: 07-02-2022 17:54-0400 Systolic blood pressure 122 mm[Hg] [facility] Work Phone: 07-02-2022 16:12-0400 Heart rate 95 /min [facility] Work Phone: 07-02-2022 14:01-0400 Body height 182.88 cm [facility] Work Phone: 07-02-2022 14:01-0400 Body mass index (BMI) [Ratio] 2.7 kg/m2 [facility] Work Phone: 07-02-2022 14:01-0400 Body temperature 97.5 [degF] [facility] Work Phone: 07-02-2022 14:01-0400 Body weight 9.07 kg [facility] Work Phone: 07-02-2022 05:42-0400 Diastolic blood pressure 81 mm[Hg] [facility] Work Phone: 07-02-2022 05:42-0400 Systolic blood pressure 131 mm[Hg] [facility] Work Phone: 07-02-2022 04:36-0400 Heart rate 75 /min [facility] Work Phone: 07-02-2022 04:36-0400 Respiratory rate 13 /min [facility] Work Phone: 07-02-2022 04:36-0400 SaO2% (BldA) [Mass fraction] 97 % [facility] Work Phone: 07-02-2022 01:57-0400 Body height 182.88 cm [facility] Work Phone: 07-02-2022 01:57-0400 Body mass index (BMI) [Ratio] 27.5 kg/m2 [facility] Work Phone: 07-02-2022 01:57-0400 Body temperature 97.6 [degF] [facility] Work Phone: 07-02-2022 01:57-0400 Body weight 92.1 kg [facility] Work Phone: 06-24-2022 15:56-0400 Body temperature 96.4 [degF] Alverto Jarvisrison DO Work Phone: [facility] 06-24-2022 15:56-0400 Body weight 89.81 kg Alverto Ceja DO Work Phone: [facility] 06-24-2022 15:56-0400 Diastolic blood pressure 80 mm[Hg] Alverto Ceja DO Work Phone: [facility] 06-24-2022 15:56-0400 Heart rate 68 /min Alverto Ceja DO Work Phone: [facility] 06-24-2022 15:56-0400 Respiratory rate 16 /min Alverto Ceja DO Work Phone: [facility] 06-24-2022 15:56-0400 Systolic blood pressure 120 mm[Hg] Alverto Ceja DO Work Phone: [facility] Encounters Encounter Date Encounter Type Care Provider Facility Start: 06-16-2025 End: 06-16-2025 Follow-up encounter Dari Payton APRN.TWIST PACKER Work Phone: [facility] Start: 06-15-2025 End: 06-16-2025 ambulatory Alverto L Ceja DO Work Phone: [facility] [place] Comment on above: Psa results n urolog y appt Start: 06-13-2025 End: 06-13-2025 ambulatory ALVERTO L CEJA Facility:[facility] Start: 06-06-2025 End: 06-06-2025 ambulatory ALVERTO L CEJA Facility:[facility] Start: 05-27-2025 End: 05-29-2025 Telephone encounter Alverto L Ceja DO Work Phone: [facility] [place] Comment on above: Results Start: 05-26-2025 End: 05-27-2025 ambulatory Alverto L Ceja DO Work Phone: [facility] [place] Comment on above: thyroid meds/labs Start: 05-23-2025 End: 06-03-2025 ambulatory [id number] Comment on above: Sign up to manage yo ur digestive symptoms in between visits, covered by insurance Start: 05-23-2025 End: 06-03-2025 E-mail encounter from caregiver [id number] Start: 03-21-2025 End: 03-21-2025 ambulatory ALVERTO L CEJA Facility:[facility] Start: 03-19-2025 End: 05-01-2025 Telephone encounter Alverto L Ceja DO Work Phone: [facility] [place] Start: 03-07-2025 End: 03-07-2025 ambulatory Alverto Jarvisrison Facility[facility] Start: 02-20-2025 End: 02-20-2025 Refill Alverto L Ceja DO Work Phone: [facility] [place] Comment on above: Refill Request Start: 02-11-2025 End: 04-13-2025 Follow-up encounter Rosa Henson APRN.CNP Work Phone: [facility] [place] Start: 02-10-2025 End: 02-10-2025 ambulatory ROSA HENSON Facility:[facility] Start: 02-10-2025 End: 02-10-2025 Subsequent hospital visit by physician Mri Radio Replaced By [facility] Wstr (I-Stat/1.5t) Work Phone: Radiology Comment on above: 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] Start: 02-07-2025 End: 02-11-2025 Telephone encounter Alverto Jarvisrison DO Work Phone: [facility] [place] Comment on above: Patient Question (re : thyroid med increase) Start: 02-06-2025 End: 02-06-2025 Follow-up encounter Rosa Henson APRN.CNP Work Phone: [facility] [place] Start: 02-05-2025 End: 02-05-2025 ambulatory ALVERTO L CEJA Facility:[facility] Start: 02-05-2025 End: 02-05-2025 ambulatory ROSA NEVILLEUTZMAN Facility:[facility] Start: 02-05-2025 End: 02-05-2025 Office outpatient visit 25 minutes Rosa Henson APRN.CNP Work Phone: [facility] [place] Comment on above: Double vision with b oth eyes open (Primary Dx); 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; Headaches; Leg cramping Start: 01-08-2025 End: 01-08-2025 ambulatory Vianney Stark RN [facility] Start: 01-08-2025 End: 01-08-2025 Patient encounter procedure Vianney Stark RN [facility] Start: 11-16-2024 ambulatory Alverto Ceja Facilit y:[facility] Start: 10-23-2024 End: 11-05-2024 ambulatory Alverto Ceja Facility:[facility] Start: 10-09-2024 End: 10-09-2024 ambulatory Vianney Stark RN [facility] Start: 10-09-2024 End: 10-09-2024 Patient encounter procedure Vianney Stark RN [facility] Start: 10-02-2024 End: 10-05-2024 ambulatory Alverto Ceja Facility:[facility] Start: 09-05-2024 End: 09-05-2024 ambulatory Alverto Ceja Facility:[facility] Start: 09-04-2024 End: 09-05-2024 ambulatory Errol Basilio Facility:[facility] Start: 08-29-2024 End: 08-29-2024 Refill Dari Payton APRN.TWIST PACKER Work Phone: [facility] Comment on above: Refill Request Start: 08-08-2024 End: 08-08-2024 ambulatory Vianney Stark RN [facility] Start: 08-08-2024 End: 08-08-2024 Patient encounter procedure Vianney Stark RN [facility] Start: 08-05-2024 End: 08-05-2024 ambulatory Errol Basilio Facility:[facility] Start: 07-29-2024 End: 07-29-2024 ambulatory Dmitry Basilio Facility:[facility] Start: 07-22-2024 End: 07-22-2024 Telephone encounter Nilay Martinez MD [facility] Department Comment on above: Fabric Transition of Care Start: 07-22-2024 End: 07-22-2024 ambulatory ALVERTO L CEJA Facility:[facility] Start: 07-22-2024 Encounter for preprocedural cardiovascular examination ROSA HENSON [facility] Start: 07-18-2024 End: 07-18-2024 ambulatory Alverto L Ceja DO Work Phone: [facility] Comment on above: Thyroid Start: 07-18-2024 End: 07-18-2024 Telephone encounter Alverto Wilkes Ceja DO Work Phone: [facility] Comment on above: Patient Update (Thyr oid) Start: 07-17-2024 End: 07-17-2024 Telephone encounter Thomas Montalov MD Work Phone: Cardiology Comment on above: Post Dc Program Call - Needs Attn Start: 07-17-2024 End: [facility] Start: 07-16-2024 End: 07-17-2024 E-mail encounter from caregiver Rosa Sixto FITCH Work Phone: [facility] Start: 07-16-2024 End: 07-17-2024 Follow-up encounter Rosa Henson APRN.CNP Work Phone: [facility] Comment on above: appointment follow u p Start: 07-16-2024 End: 07-17-2024 ambulatory [facility] Facility:[facility] Start: 07-16-2024 End: 07-16-2024 Patient encounter procedure Rosa Henson APRN.CNP Work Phone: [facility] Comment on above: Status post cardiac surgery (Primary Dx) Start: 07-15-2024 End: 07-15-2024 Telephone encounter Nilay Martinez MD [facility] Department Comment on above: [facility] Transition of Care Start: 07-11-2024 End: 07-11-2024 Orders Only Karolina Jonas MD, PhD Work Phone: Cardiology Comment on above: Bicuspid aortic valv e (Primary Dx) Start: 07-11-2024 End: 07-11-2024 Telephone encounter Nilay Martinez MD [facility] Comment on above: Fabric Transition of Care Post Dc Program Call - Needs Attn (Incision/ suture question) Start: 07-10-2024 End: 07-10-2024 Orders Only Karolina Jonas MD, PhD Work Phone: Cardiology Comment on above: Encounter for prepro cedural cardiovascular examination (Primary Dx); Nonrheumatic aortic valve stenosis; Bicuspid aortic valve; Aortic ectasia, thoracic (HCC) Start: 07-10-2024 End: 07-10-2024 Patient encounter status Karolina Jonas MD, PhD Work Phone: [facility] Start: 07-09-2024 End: 07-09-2024 Evaluation and management of inpatient ALVERTO CEJA Facility:[facility] Start: 07-09-2024 End: 07-09-2024 Orders Only Karolina Jonas MD, PhD Work Phone: Cardiology Comment on above: Nonrheumatic aortic valve stenosis (Primary Dx) Start: 07-04-2024 End: 07-09-2024 Evaluation and management of inpatient ALVERTO CEJA Facility:[facility] Start: 07-03-2024 End: 07-03-2024 Patient encounter procedure [facility] Work Phone: Cardiothoracic Comment on above: Pre-op exam (Primary Dx) Start: 07-03-2024 End: 07-03-2024 Preprocedural examination done [facility] Work Phone: [facility] Start: 07-03-2024 End: 07-03-2024 Admission to same day surgery center Anesthesia Clearance Work Phone: [facility] Work Phone: Start: 07-03-2024 End: 07-03-2024 ambulatory Thomas Montalvo MD Work Phone: Cardiothoracic Comment on above: Patient Education Start: 07-03-2024 Encounter for preprocedural cardiovascular examination ROSA HENSON [facility] Start: 07-03-2024 End: 07-03-2024 Patient encounter procedure Pulm Fct Lab Main 6 Addon Work Phone: Pulmonary Medicine Comment on above: Spirometry Encounter for preope rative anesthesiology assessment for cardiac surgery (Primary Dx) Start: 07-03-2024 End: 07-03-2024 Patient encounter status Pulm Fct Lab Main 6 Addon Work Phone: [facility] Start: 07-02-2024 End: 07-02-2024 ambulatory AVLERTO L CEJA Facility:[facility] Start: 07-02-2024 End: 07-02-2024 ambulatory ALVERTO L CEJA Facility:[facility] Start: 07-01-2024 End: 07-01-2024 Telephone encounter Jose M Silva MD Work Phone: Cardiology Comment on above: Patient Education Start: 06-27-2024 End: 06-27-2024 Telephone encounter Thomas Montalvo MD Work Phone: Cardiothoracic Start: 06-26-2024 End: 06-26-2024 Patient encounter status Thomas Montalvo MD Work Phone: [facility] Start: 06-26-2024 End: 06-26-2024 Telephone encounter Thomas Montalvo MD Work Phone: Cardiothoracic Comment on above: Schedule Surgery (Pr e-op checklist) Start: 06-24-2024 End: 06-24-2024 ambulatory ALVERTO L CEJA Facility:[facility] Start: 06-24-2024 End: 06-24-2024 Subsequent hospital visit by physician Ct 2 Main Qb (I-Stat) Radiology Comment on above: Myalgia [M79.10] Start: 06-24-2024 End: 06-24-2024 Patient encounter procedure Karolina Jonas MD, PhD Work Phone: Cardiology Comment on above: Encounter for prepro cedural cardiovascular examination (Primary Dx); Nonrheumatic aortic valve stenosis; Bicuspid aortic valve; Aortic ectasia, thoracic (HCC) Start: 06-24-2024 End: 06-24-2024 Patient encounter status Karolina Jonas MD, PhD Work Phone: [facility] Start: 06-24-2024 End: 06-24-2024 ambulatory ALVERTO L CEJA Facility:[facility] Start: 06-19-2024 Telephone encounter Thomas mae MD Work Phone: Cardiothoracic Start: 06-12-2024 Patient encounter status Thomas Montalvo MD Work Phone: [facility] Start: 06-12-2024 Telephone encounter Thomas mae MD Work Phone: Cardiothoracic Comment on above: Insurance Inquiry Referral Information ; Schedule Evaluation Start: 06-11-2024 Orders Only Rudolph Garcia MD Work Phone: Cardiology Comment on above: Aortic valve disorde r (Primary Dx) Post Dc Program Call - Needs Attn Start: 06-10-2024 Telephone encounter Alverto stanton DO Work Phone: [facility] Comment on above: Results Start: 05-31-[address] smith CARDIAC CATHETERIZATION TECHNICIAN.TWIST PACKER Work Phone: [facility] Comment on above: Results Start: 05-29-2024 End: 05-29-2024 Patient encounter procedure Alverto Ceja DO Work Phone: [facility] Comment on above: Well adult exam (Malka nicolette Dx); Palpitations; Bradycardia; Aortic valve disorder; Mariana's thyroiditis; Gluten intolerance; Lactose intolerance Start: 05-29-2024 End: 05-29-2024 Patient encounter status Alverto Ceja DO Work Phone: [facility] Start: 04-08-2024 End: 04-08-2024 ambulatory Alverto Ceja DO Work Phone: [facility] Comment on above: antibiotic/ dentist appt Start: 02-23-2024 Refill Dari Payton CARDIAC CATHETERIZATION TECHNICIAN.TWIST PACKER Work Phone: [facility] Comment on above: Refill Request Start: 02-09-2024 Refill Dariwendy Payton CARDIAC CATHETERIZATION TECHNICIAN.TWIST PACKER Work Phone: [facility] Comment on above: Refill Request Start: 09-01-2023 End: 09-01-[address] Alverto Ceja Work Phone: [facility] Work Phone: Start: 09-01-2023 End: 09-01-[address] Alverto Ceja Work Phone: [facility] G[facility] Work Phone: Start: 08-20-2023 Refill Dari Payton LITTLE Work Phone: [facility] Comment on above: Refill Request Start: 07-26-2023 End: 07-26-2023 Patient encounter procedure Alverto Ceja DO Work Phone: [facility] Comment on above: Mariana's thyroidi tis (Primary Dx); Muscle weakness of extremity; Fatigue, unspecified type; Celiac disease Start: 04-18-2023 End: 04-18-[address] Alverto Ceja Work Phone: [facility] Work Phone: Start: 04-18-2023 End: 04-18-[address] Alverto Ceja Work Phone: [facility], Specimen Start: 04-14-2023 End: 04-14-[address] Alverto Ceja Work Phone: [facility] Work Phone: Start: 04-14-2023 End: 04-14-[address] Alverto Ceja Work Phone: [facility] Start: 04-11-2023 End: 04-11-2023 Subsequent hospital visit by physician Mri Radio Replaced By [facility] (I-Stat/1.5t) Work Phone: Radiology Comment on above: Unintentional weight change [R68.89] Start: 04-05-2023 End: 04-05-[address] Alverto Ceja Work Phone: [facility] G[facility] Start: 03-16-2023 End: 03-16-[address] Alverto Ceja Work Phone: [facility] Work Phone: Start: 03-16-2023 End: 03-16-[address] Alverto Ceja Work Phone: [facility] Start: 03-13-2023 End: 03-13-2023 ambulatory Bernarda Graf LAL Work Phone: General Surgery Comment on above: Gastritis and duoden itis (Primary Dx); Dysphagia, unspecified type Start: 03-13-2023 End: 03-13-2023 Telemedicine consultation with patient Bernarda Cornejotianna LAL Work Phone: [facility] Start: 03-08-2023 End: 03-08-[address] Alverto Ceja Work Phone: [facility] Gastroenter[facility] Start: 03-06-2023 End: 03-06-2023 Subsequent hospital visit by physician Niranjan Ko MD Work Phone: Ambulatory Surgery Comment on above: Generalized abdomina l pain [R10.84] Start: 03-04-2023 End: 03-05-2023 Emergency department patient visit BETTY JOHNSON Facility:[facility] Start: 02-24-2023 Telephone encounter Alverto stanton DO Work Phone: [facility] Comment on above: Appointment Start: 02-23-2023 End: 03-05-2023 ambulatory [facility] Work Phone: Start: 02-23-2023 End: 03-05-2023 Discharged Recurring [facility] Start: 02-22-2023 Telephone encounter Alverto stanton DO Work Phone: [facility] Comment on above: Referral to GI Start: 02-21-2023 End: 02-21-2023 Patient encounter procedure Alverto Ceja DO Work Phone: [facility] Comment on above: Muscle weakness of e xtremity (Primary Dx); Myalgia; Generalized abdominal pain; Fatigue, unspecified type; Acute constipation; Unintentional weight change; Gluten intolerance; Lactose intolerance Start: 01-30-2023 Telephone encounter Alverto stanton DO Work Phone: [facility] Comment on above: Appointment; colonos copy biopsy results Start: 01-28-2023 Telephone encounter Niranjan veronica MD Work Phone: Ambulatory Surgery Comment on above: Patient Question Start: 12-30-2022 Telephone encounter Alverto stanton DO Work Phone: [facility] [place] Comment on above: Orders Start: 12-28-2022 Telephone encounter Alverto stanton DO Work Phone: [facility] Comment on above: Results Start: 12-17-2022 Refill Alverto garcia DO Work Phone: [facility] Comment on above: Refill Request Start: 12-16-2022 End: 12-16-2022 Patient encounter procedure Alverto Ceja DO Work Phone: [facility] [place] Comment on above: Myalgia (Primary Dx) ; Weight loss; Arthralgia, unspecified joint; Mariana's thyroiditis; Screening for prostate cancer; Palpitations Start: 12-14-2022 Telephone encounter Alverto stanton DO Work Phone: [facility] [place] Comment on above: Patient Question; Re sults; Medication Question Start: 11-04-2022 End: 11-04-2022 Patient encounter procedure Dari Butcher CARDIAC CATHETERIZATION TECHNICIAN.TWIST PACKER Work Phone: [facility] Comment on above: Arthralgia, unspecif ied joint (Primary Dx); Mariana's thyroiditis; Palpitations; Muscle cramping; Tick bite, unspecified site, subsequent encounter; Tingling of face Start: 09-14-2022 ambulatory Alverto garcia DO Work Phone: [facility] Comment on above: thyroid labs Start: 09-14-2022 E-mail encounter sonu m caregiver Alverto Ceja DO Work Phone: [facility] Start: 08-11-2022 Telephone encounter Dari elizondo CARDIAC CATHETERIZATION TECHNICIAN.TWIST PACKER Work Phone: [facility] Comment on above: Results Start: 08-05-2022 Telephone encounter Alverto Jacome arrison DO Work Phone: [facility] Comment on above: medication question Start: 07-05-2022 ambulatory ALVERTO CEJA Facil ity:[facility] Start: 07-05-2022 End: 07-05-2022 Subsequent hospital visit by physician [facility] Work Phone: Cardiology Lab Comment on above: Aortic valve disorde r [I35.9] Start: 07-04-2022 Telephone encounter Alverto Jacome arrison DO Work Phone: [facility] Comment on above: Patient Question Start: 07-02-2022 End: 07-02-2022 [facility] Start: 07-02-2022 Telephone encounter Alverto Jacome arrison DO Work Phone: [facility] Comment on above: Patient Update Start: 07-02-2022 End: 07-02-2022 [facility] Start: 06-24-2022 End: 06-24-2022 Patient encounter procedure Alverto Ceja DO Work Phone: [facility] Comment on above: Muscle cramping (Malka nicolette Dx); Hypocalcemia; Aortic valve disorder; Bradycardia; Aortic dilatation (HCC); Mariana's thyroiditis; Palpitations Start: 06-15-2022 Telephone encounter Alverto Jacome arrison DO Work Phone: [facility] Comment on above: Results; Appointment Start: 06-14-2022 ambulatory Alverto Murillo son DO Work Phone: [facility] Comment on above: Could this be part o f why I do not feel well Start: 06-09-2022 Telephone encounter Alverto Jacome arrison DO Work Phone: [facility] Comment on above: low BP problems Start: 06-02-2022 ambulatory Alverto garcia DO Work Phone: [facility] Comment on above: lab work Start: 05-25-2022 Telephone encounter Alverto L G arrison DO Work Phone: [facility] [place] Comment on above: Patient Update Start: 03-07-2022 Telephone encounter Alverto stanton DO Work Phone: [facility] [place] Comment on above: Patient Question Start: 02-11-2022 Telephone encounter Alverto stanton DO Work Phone: [facility] [place] Comment on above: Prescription Clarifi cation Start: 05-11-2021 Patient encounter status Alverto Ceja DO Work Phone: [facility] Work Phone: Start: 12-11-2018 Patient encounter procedure Facility:[id number] Start: 05-18-2018 Patient encounter procedure Facility:[id number] Procedures Date Procedure Procedure Detail Performing Clinician Start: 02-10-2025 Mri brain brain stem w/o contrast material Rosa Henson CARDIAC CATHETERIZATION TECHNICIAN.TWIST PACKER Work Phone: Start: 07-22-2024 Lipid 1996 panel - Serum or Plasma Nilay Martinez MD Start: 07-09-2024 Echocardiography ROSA HENSON Start: 07-03-2024 Iadna s aureus amplified probe tq María Montalvo MD Work Phone: Start: 07-03-2024 Spmtry w/vc expiratory candace w/wo mxml vol vntj Thomas Montalvo MD Work Phone: Start: 07-02-2024 Antibody screen ROSA HENSON Comment on above: Order Comment: Specimen Type: BLOOD SPEC IMENOrdering Facility: [facility] Address: [address] [place] [address] Performed By: #### T [id number] ####CC MAIN BLOOD BANKCLIA [id number] [address] [place] Start: 06-24-2024 Echocardiography ROSA EHNSON Start: 05-30-2024 Lipid 1996 panel - Serum or Plasma Minh Henson CARDIAC CATHETERIZATION TECHNICIAN.TWIST PACKER Work Phone: Start: 09-01-[address] Alverto Ceja Work Phone: Start: 04-11-2023 Mri brain brain stem w/o w/contrast material Alverto Ceja DO Work Phone: Start: 03-06-2023 Level iv surg pathology gross&microscopic exam Niranjan Ko MD Work Phone: Start: 03-06-2023 Esophagogastroduodenoscopy transoral diagnostic Alverto Ceja DO Work Phone: Start: 01-23-2023 Colonoscopy Niranjan Ko MD Work Phone: Start: 07-05-2022 Echo tthrc r-t 2d w/wom-mode compl spec&colr d Alverto Ceja DO Work Phone: Start: 07-02-2022 CT angiography of chest with contrast Start: 07-02-2022 Plain chest X-ray Start: 06-24-2022 Adult depression screening assessment Alverto Ceja DO Work Phone: Start: 06-13-2022 Lipid 1996 panel - Serum or Plasma Trish Ceja DO Work Phone: Start: 05-07-2021 Adult depression screening assessment Alverto Ceja DO Work Phone: Lactoferrin measurement Dr. Alverto Ceja Work Phone: Plan of Treatment Date Care Activity Detail Author Start: 01-23-2033 Colonoscopy COLONOSCOPY [facility] Start: 01-23-2033 COLORECTAL CANCER SCREENING COLORECTAL CANCER SCREENING [facility] Start: 01-23-2033 Screening for malign ant neoplasm of colon [facility] Start: 06-13-2030 Prostate specific an tigen measurement Prostate Cancer Screening Discussion [facility] Start: 07-22-2029 Lipid panel Lipid Screening [facility] Start: 05-30-2029 Lipid panel Lipid Screening [facility] Start: 12-31-2028 Urine microalbumin profile DTaP,Tdap,Td Vaccine (3 - Td or Tdap) [facility] Start: 02-06-2028 Diabetes Screening Diabetes Screenin g [facility] Start: 12-16-2027 PROSTATE CANCER SCRE ENING DISCUSSION PROSTATE CANCER SCREENING DISCUSSION [facility] Start: 12-16-2027 Prostate specific an tigen measurement Prostate Cancer Screening Discussion [facility] Start: 07-22-2027 Diabetes Screening Diabetes Screenin g [facility] Start: 07-09-2027 Diabetes Screening Diabetes Screenin g [facility] Start: 07-02-2027 Diabetes Screening Diabetes Screenin g [facility] Start: 06-13-2027 Lipid 1996 panel - S michi or Plasma Lipid Screening [facility] Start: 06-13-2027 Lipid panel Lipid Screening [facility] Start: 06-13-2027 LIPID SCREEN LIPID SCREEN [facility] Start: 05-30-2027 Diabetes Screening Diabetes Screenin g [facility] Start: 11-08-2026 LIPID SCREEN LIPID SCREEN [facility] Start: 03-04-2026 DIABETES SCREEN DIABETES SCREEN [facility] Start: 03-04-2026 Diabetes Screening Diabetes Screenin g [facility] Start: 02-21-2026 DIABETES SCREEN DIABETES SCREEN [facility] Start: 11-04-2025 DIABETES SCREEN DIABETES SCREEN [facility] Start: 07-07-2025 Influenza vaccination [facility] Start: 06-24-2025 DIABETES SCREEN DIABETES SCREEN [facility] Start: 06-13-2025 DIABETES SCREEN DIABETES SCREEN [facility] Start: 06-06-2025 End: 06-06-[address] [facility] Start: 06-03-2025 End: 09-02-2025 PSA/PROSTATE SPECIFIC ANTIGEN SCREENING PSA/PROSTATE SPECIFIC ANTIGEN SCREENING Lab Routine Screening for prostate cancer Expected: 06/03/2025, Expires: 09/02/2025 [facility] Work Phone: Comment on above: Expected: 06/03/2025 , Expires: 09/02/2025 Start: 05-29-2025 End: 08-28-2025 Thyrotropin [Units/volume] in Serum or Plasma THYROID STIMULATING HORMONE Lab Routine Hypothyroidism, acquired Mariana's thyroiditis Expected: 05/29/2025, Expires: 08/28/2025 [facility] Work Phone: Comment on above: Expected: 05/29/2025 , Expires: 08/28/2025 Start: 05-29-2025 End: 08-28-2025 Thyroxine (T4) free [Mass/volume] in Serum or Plasma T4 FREE/FREE THYROXINE Lab Routine Hypothyroidism, acquired Mariana's thyroiditis Expected: 05/29/2025, Expires: 08/28/2025 [facility] Comment on above: Expected: 05/29/2025 , Expires: 08/28/2025 Start: 05-29-2025 End: 08-28-2025 Triiodothyronine (T3) [Mass/volume] in Serum or Plasma T3 Lab Routine Hypothyroidism, acquired Mariana's thyroiditis Expected: 05/29/2025, Expires: 08/28/2025 [facility] Comment on above: Expected: 05/29/2025 , Expires: 08/28/2025 Start: 05-08-2025 End: 08-07-2025 Thyrotropin [Units/volume] in Serum or Plasma THYROID STIMULATING HORMONE Lab Routine Mariana's thyroiditis Expected: 05/08/2025, Expires: 08/07/2025 [facility] Work Phone: Comment on above: Expected: 05/08/2025 , Expires: 08/07/2025 Start: 05-08-2025 End: 08-07-2025 Thyroxine (T4) free [Mass/volume] in Serum or Plasma T4 FREE/FREE THYROXINE Lab Routine Mariana's thyroiditis Expected: 05/08/2025, Expires: 08/07/2025 [facility] Comment on above: Expected: 05/08/2025 , Expires: 08/07/2025 Start: 02-18-2025 End: 02-18-2025 Patient encounter procedure 02/18/2025 7:00 AM EDT Appointment Radiology [address] [place] [address] : 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]; 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]; Headaches [R51.9]; Leg cramping [R25.2] Radiology Comment on above: : 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]; 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]; Headaches [R51.9]; Leg cramping [R25.2] Start: 02-05-2025 End: 05-07-2025 THYROGLOBULIN ANTIBODY [facility] Comment on above: Expected: 02/05/2025 , Expires: 05/07/2025 Start: 02-05-2025 End: 05-07-2025 THYROID PEROXIDASE ANTIBODY [facility] Comment on above: Expected: 02/05/2025 , Expires: 05/07/2025 Start: 12-02-2024 End: 12-02-2024 ambulatory 12/02/2024 9:45 AM EST Results Only Cardiology [address] [place] [address] OPEN HEART Cardiology Comment on above: OPEN HEART Start: 12-02-2024 End: 12-02-2024 Patient encounter procedure Cardiology Comment on above: OPEN HEART Bicuspid aortic valv e [Q23.1] Start: 11-08-2024 DIABETES SCREEN DIABETES SCREEN [facility] Start: 10-21-2024 End: 10-21-2024 Patient encounter procedure 10/21/2024 3:30 PM EST Office Visit Cardiology [address] [place] [id number] Bradycardia [R00.1] Cardiology Comment on above: Bradycardia [R00.1] Start: 10-21-2024 End: 10-21-2024 Patient encounter procedure 10/21/2024 1:45 PM EST Office Visit Cardiology [address] [place] [address] Rudolph Garcia MD [address] [place] [address] Bradycardia [R00.1] Cardiology Comment on above: Bradycardia [R00.1] Start: 10-21-2024 End: 10-21-2024 ambulatory 10/21/2024 1:00 PM EST Results Only Cardiology [address] [place] [address] Bradycardia [R00.1] Cardiology Comment on above: Bradycardia [R00.1] Start: 08-08-2024 End: 08-08-2024 Patient encounter procedure 08/08/2024 8:00 AM EDT Office Visit Cardiology [address] [place] [address] Ingrid Burns APRN.TWIST PACKER [address] [place] [address] OPEN HEART Cardiology Comment on above: OPEN HEART Start: 08-08-2024 End: 08-08-2024 [facility] Comment on above: OPEN HEART Start: 07-18-2024 End: 10-17-2024 THYROGLOBULIN ANTIBODY THYROGLOBULIN ANTIBODY Lab Routine Mariana's thyroiditis Expected: 07/18/2024, Expires: 10/17/2024 [facility] Comment on above: Expected: 07/18/2024 , Expires: 10/17/2024 Start: 07-18-2024 End: 10-17-2024 THYROID PEROXIDASE ANTIBODY THYROID PEROXIDASE ANTIBODY Lab Routine Mariana's thyroiditis Expected: 07/18/2024, Expires: 10/17/2024 [facility] Comment on above: Expected: 07/18/2024 , Expires: 10/17/2024 Start: 07-18-2024 End: 10-17-2024 Thyrotropin [Units/volume] in Serum or Plasma THYROID STIMULATING HORMONE Lab Routine Mariana's thyroiditis Expected: 07/18/2024, Expires: 10/17/2024 [facility] Work Phone: Comment on above: Expected: 07/18/2024 , Expires: 10/17/2024 Start: 07-18-2024 End: 10-17-2024 Thyroxine (T4) free [Mass/volume] in Serum or Plasma T4 FREE/FREE THYROXINE Lab Routine Mariana's thyroiditis Expected: 07/18/2024, Expires: 10/17/2024 [facility] Comment on above: Expected: 07/18/2024 , Expires: 10/17/2024 Start: 07-18-2024 End: 10-17-2024 Triiodothyronine (T3) [Mass/volume] in Serum or Plasma T3 Lab Routine Mariana's thyroiditis Expected: 07/18/2024, Expires: 10/17/2024 [facility] Comment on above: Expected: 07/18/2024 , Expires: 10/17/2024 Start: 07-16-2024 End: 07-16-2024 Patient encounter procedure 07/16/2024 10:00 AM EDT Office Visit [facility] [place] [address] [place] [address] Rosa Henson APRN.TWIST PACKER [address] [place] [address] Main campus follow up open heart 07/04 [facility] [place] Comment on above: Main campus follow u p open heart 07/04 Start: 07-10-2024 End: 10-09-2024 Basic metabolic 2000 panel - Serum or Plasma BASIC METABOLIC PANEL Lab Routine Encounter for preprocedural cardiovascular examination Nonrheumatic aortic valve stenosis Bicuspid aortic valve Aortic ectasia, thoracic (HCC) Expected: 07/10/2024, Expires: 10/09/2024 [facility] Comment on above: Expected: 07/10/2024 , Expires: 10/09/2024 Start: 07-10-2024 End: 10-09-2024 CBC panel - Blood by Automated count COMPLETE BLOOD COUNT Lab Routine Encounter for preprocedural cardiovascular examination Nonrheumatic aortic valve stenosis Bicuspid aortic valve Aortic ectasia, thoracic (HCC) Expected: 07/10/2024, Expires: 10/09/2024 [facility] Comment on above: Expected: 07/10/2024 , Expires: 10/09/2024 Start: 07-10-2024 End: 10-09-2024 Lipid 1996 panel - Serum or Plasma LIPID PANEL BASIC Lab Routine Encounter for preprocedural cardiovascular examination Nonrheumatic aortic valve stenosis Bicuspid aortic valve Aortic ectasia, thoracic (HCC) Expected: 07/10/2024, Expires: 10/09/2024 [facility] Comment on above: Expected: 07/10/2024 , Expires: 10/09/2024 Start: 07-07-2024 Covid-19 Vaccine ( season) Covid-19 Vaccine ( season) [facility] Start: 07-07-2024 Covid-19 Vaccine () Covid-19 Vaccine () [facility] Start: 07-07-2024 Influenza vaccination [facility] Start: 07-04-2024 End: 07-04-2024 Admission to same day surgery center Admitting Comment on above: AVR and root rep MINI ANTERIOR THORAC OTOMY AVR (1) Start: 07-04-2024 End: 07-04-2024 Anesthesia consultation 07/04/2024 6:30 AM EDT Anesthesia Event Admitting [address] [place] [address] Ephraim Muñiz DO [address] [place] [address] Admitting Start: 07-04-2024 End: 07-04-2024 As-aort grf w/card byp f/aortic ds oth/thn dsj GRAFT ASCENDING AORTA W/VALVE SUSPENSION W/CARDIOPULMONARY BYPASS FOR AORTIC DISEASE OTHER THAN DISSECTION Moderate aortic stenosis Bicuspid aortic valve Aortic dilatation (HCC) Myalgia Palpitation Bradycardia Celiac disease Aortic root dilation (HCC) Pre-operative cardiovascular examination 07/04/2024 6:30 AM EDT [facility] Start: 07-04-2024 End: 07-04-2024 Rplcmt prost aortic valve open xcp homogrf/stent AVR W/ CARDIOPULMONARY BYPASS W/ PROSTHETIC OTHER THAN HOMOGRAFT/ STENTLESS TISSUE VALVE Moderate aortic stenosis Bicuspid aortic valve Aortic dilatation (HCC) Myalgia Palpitation Bradycardia Celiac disease Aortic root dilation (HCC) Pre-operative cardiovascular examination 07/04/2024 6:30 AM EDT [facility]AS Start: 07-04-2024 Subsequent hospital visit by physician 07/04/2024 6:30 AM EDT Hospital Encounter Admitting [address] [place] [address] Thomas Montalvo MD [address] [place] [address] Moderate aortic stenosis [I35.0] Admitting Comment on above: Moderate aortic sten osis [I35.0] Start: 07-03-2024 End: 07-03-2024 Patient encounter procedure Vascular Surgery Comment on above: Moderate aortic sten osis [I35.0] AVR Start: 07-03-2024 End: 07-03-2024 Patient encounter procedure Pulmonary Medicine Comment on above: OHS CLEARANCE AVR Start: 07-02-2024 End: 07-02-2024 Admission to same day surgery center 07/02/2024 4:05 PM EDT - 07/02/2024 4:54 PM EDT Surgery [facility] [address] [place] [address] Jose M Silva MD [address] [place] [address]ON[address] C[address] W IMAGE INJECT & INTERP W LT HEART CATH W INJECT LT VENTRGRAPHY [facility] Comment on above: CORONARY ANGIO W CAT H PLACE W IMAGE INJECT & INTERP W LT HEART CATH W INJECT LT VENTRGRAPHY Start: 07-02-2024 End: 07-02-2024 Cath plmt l hrt & arts w/njx & angio img s&i CORONARY ANGIO W CATH PLACE W IMAGE INJECT & INTERP W LT HEART CATH W INJECT LT VENTRGRAPHY Nonrheumatic aortic valve stenosis 07/02/2024 4:05 PM EDT [facility] Start: 07-02-2024 Subsequent hospital visit by physician 07/02/2024 4:05 PM EDT Hospital Encounter [facility] [address] [place] [address] Jose M Silva MD [address] [place] [address] Nonrheumatic aortic valve stenosis [I35.0] [facility] Comment on above: Nonrheumatic aortic valve stenosis [I35.0] Start: 07-02-2024 End: 07-02-2024 ambulatory 07/02/2024 2:30 PM EDT Procedure Cardiology [address] [place] [address] Jose M Silva MD [address] [place] [address] LEFT HEART CATH Cardiology Comment on above: LEFT HEART CATH Start: 07-02-2024 End: 07-02-2024 Patient encounter procedure 07/02/2024 10:00 AM EDT Office Visit Admitting [address] [place] [address] ADMIT Admitting Comment on above: ADMIT Start: 07-02-2024 End: 07-02-2024 [facility] J1[facility]4 Draw Station Comment on above: Moderate aortic sten osis [I35.0] LEFT HEART Start: 06-26-2024 End: 09-25-2024 aPTT in Platelet poor plasma by Coagulation assay ACTIVATED PARTIAL THROMBOPLASTIN TIME Lab Routine Moderate aortic stenosis Bicuspid aortic valve Aortic dilatation (HCC) Myalgia Palpitation Bradycardia Celiac disease Aortic root dilation (HCC) Pre-operative cardiovascular examination Expected: 06/26/2024 (Approximate), Expires: 09/25/2024 [facility] Comment on above: Expected: 06/26/2024 (Approximate), Expires: 09/25/2024 Start: 06-26-2024 End: 09-25-2024 CONFIRM BLOOD TYPE CONFIRM BLOOD TYPE Blood Bank Routine Moderate aortic stenosis Bicuspid aortic valve Aortic dilatation (HCC) Myalgia Palpitation Bradycardia Celiac disease Aortic root dilation (HCC) Pre-operative cardiovascular examination Expected: 06/26/2024, Expires: 09/25/2024 [facility] Comment on above: Expected: 06/26/2024 , Expires: 09/25/2024 Start: 06-26-2024 End: 09-25-2024 Lactate dehydrogenase [Enzymatic activity/volume] in Serum or Plasma LACTATE DEHYDROGENASE Lab Routine Moderate aortic stenosis Bicuspid aortic valve Aortic dilatation (HCC) Myalgia Palpitation Bradycardia Celiac disease Aortic root dilation (HCC) Pre-operative cardiovascular examination Expected: 06/26/2024, Expires: 09/25/2024 [facility] Work Phone: Comment on above: Expected: 06/26/2024 , Expires: 09/25/2024 Start: 06-26-2024 End: 09-25-2024 PT panel - Platelet poor plasma by Coagulation assay PROTHROMBIN TIME Lab Routine Moderate aortic stenosis Bicuspid aortic valve Aortic dilatation (HCC) Myalgia Palpitation Bradycardia Celiac disease Aortic root dilation (HCC) Pre-operative cardiovascular examination Expected: 06/26/2024 (Approximate), Expires: 09/25/2024 [facility] Comment on above: Expected: 06/26/2024 (Approximate), Expires: 09/25/2024 Start: 06-26-2024 End: 09-25-2024 Thyrotropin [Units/volume] in Serum or Plasma THYROID STIMULATING HORMONE Lab Routine Moderate aortic stenosis Bicuspid aortic valve Aortic dilatation (HCC) Myalgia Palpitation Bradycardia Celiac disease Aortic root dilation (HCC) Pre-operative cardiovascular examination Expected: 06/26/2024 (Approximate), Expires: 09/25/2024 [facility] Comment on above: Expected: 06/26/2024 (Approximate), Expires: 09/25/2024 Start: 06-26-2024 End: 09-25-2024 TYPE AND SCREEN,30 DAY TYPE AND SCREEN,30 DAY Blood Bank Routine Moderate aortic stenosis Bicuspid aortic valve Aortic dilatation (HCC) Myalgia Palpitation Bradycardia Celiac disease Aortic root dilation (HCC) Pre-operative cardiovascular examination Expected: 06/26/2024, Expires: 09/25/2024 [facility] Comment on above: Expected: 06/26/2024 , Expires: 09/25/2024 Start: 06-26-2024 End: 09-25-2024 URINALYSIS, DIPSTICK ONLY URINALYSIS, DIPSTICK ONLY Lab Routine Moderate aortic stenosis Bicuspid aortic valve Aortic dilatation (HCC) Myalgia Palpitation Bradycardia Celiac disease Aortic root dilation (HCC) Pre-operative cardiovascular examination Expected: 06/26/2024, Expires: 09/25/2024 [facility] Comment on above: Expected: 06/26/2024 , Expires: 09/25/2024 Start: 06-24-2024 End: 09-23-2024 Natriuretic peptide.B prohormone N-Terminal [Mass/volume] in Serum or Plasma NT PRO BNP Lab Routine Encounter for preprocedural cardiovascular examination Expected: 06/24/2024, Expires: 09/23/2024 [facility] Comment on above: Expected: 06/24/2024 , Expires: 09/23/2024 Start: 06-24-2024 End: 06-24-2024 Patient encounter procedure Radiology Comment on above: Aortic dilatation (H CC) [I77.819] Pre Op Clearance Aortic valve disorde r [I35.9] Start: 06-24-2024 End: 06-24-2024 ambulatory 06/24/2024 8:15 AM EDT Results Only Cardiology [address] [place] [id number] Pre OP Cardiology Comment on above: Pre OP Start: 06-06-2024 End: 06-06-2024 Patient encounter procedure 06/06/2024 8:00 AM EDT Office Visit Cardiology [address] [place] [address] Palpitations [R00.2] Cardiology Comment on above: Palpitations [R00.2] Start: 05-29-2024 End: 08-28-2024 25-hydroxyvitamin D3 [Mass/volume] in Serum or Plasma VITAMIN D 25 HYDROXY Lab Routine Well adult exam Expected: 05/29/2024, Expires: 08/28/2024 [facility] Comment on above: Expected: 05/29/2024 , Expires: 08/28/2024 Start: 05-29-2024 End: 08-28-2024 CBC W Auto Differential panel - Blood COMPLETE BLOOD COUNT AND DIFFERENTIAL Lab Routine Well adult exam Expected: 05/29/2024, Expires: 08/28/2024 [facility] Comment on above: Expected: 05/29/2024 , Expires: 08/28/2024 Start: 05-29-2024 End: 08-28-2024 Cobalamin (Vitamin B12) [Mass/volume] in Serum or Plasma VITAMIN B12 Lab Routine Well adult exam Expected: 05/29/2024, Expires: 08/28/2024 [facility] Comment on above: Expected: 05/29/2024 , Expires: 08/28/2024 Start: 05-29-2024 End: 08-28-2024 Comprehensive metabolic 2000 panel - Serum or Plasma COMPREHENSIVE METABOLIC PANEL Lab Routine Well adult exam Expected: 05/29/2024, Expires: 08/28/2024 [facility] Comment on above: Expected: 05/29/2024 , Expires: 08/28/2024 Start: 05-29-2024 End: 08-28-2024 Hemoglobin A1c in Blood HEMOGLOBIN A1C Lab Routine Well adult exam Expected: 05/29/2024, Expires: 08/28/2024 [facility] Comment on above: Expected: 05/29/2024 , Expires: 08/28/2024 Start: 05-29-2024 End: 08-28-2024 Lipid 1996 panel - Serum or Plasma LIPID PANEL BASIC Lab Routine Well adult exam Expected: 05/29/2024, Expires: 08/28/2024 [facility] Comment on above: Expected: 05/29/2024 , Expires: 08/28/2024 Start: 05-29-2024 End: 08-28-2024 Thyrotropin [Units/volume] in Serum or Plasma THYROID STIMULATING HORMONE Lab Routine Well adult exam Expected: 05/29/2024, Expires: 08/28/2024 [facility] Comment on above: Expected: 05/29/2024 , Expires: 08/28/2024 Start: 05-29-2024 End: 08-28-2024 Thyroxine (T4) free [Mass/volume] in Serum or Plasma T4 FREE/FREE THYROXINE Lab Routine Well adult exam Expected: 05/29/2024, Expires: 08/28/2024 [facility] Comment on above: Expected: 05/29/2024 , Expires: 08/28/2024 Start: 05-29-2024 End: 08-28-2024 Triiodothyronine (T3) Free [Mass/volume] in Serum or Plasma T3, FREE Lab Routine Well adult exam Expected: 05/29/2024, Expires: 08/28/2024 [facility] Comment on above: Expected: 05/29/2024 , Expires: 08/28/2024 Start: 05-29-2024 End: 05-29-2024 Patient encounter procedure 05/29/2024 7:40 AM EDT Office Visit Family [facility] [address] [place], [place] [address] Alverto Ceja DO [address] [place] [address] physical Family [facility] [place] Comment on above: physical Start: 05-05-2024 Influenza vaccination Influenza Vacc ine (#1) [facility] Comment on above: Postponed from 07/07 (Declined at this time) Start: 02-22-2024 COVID-19 VACCINE (#1) COVID-19 VACCI NE (#1) [facility] Comment on above: Postponed from 11/21 (Declined at this time) Start: 01-24-2024 Colonoscopy COLONOSCOPY [facility] Start: 01-24-2024 COLORECTAL CANCER SCREENING COLORECTAL CANCER SCREENING [facility] Start: 11-06-2023 Behavioral Health Screening Behavioral Health Screening [facility] Start: 11-04-2023 Urine microalbumin profile [facility] Comment on above: Postponed from 05/21 (Declined at this time) Start: 09-25-2023 End: 11-25-2023 C reactive protein [Mass/volume] in Serum or Plasma C-REACTIVE PROTEIN (CRP) Lab Routine Mariana's thyroiditis Expected: 09/25/2023, Expires: 11/25/2023 [facility] Work Phone: Comment on above: Expected: 09/25/2023 , Expires: 11/25/2023 Start: 09-25-2023 End: 11-25-2023 Thyroglobulin Ab [Units/volume] in Serum or Plasma THYROGLOBULIN AB Lab Routine Mariana's thyroiditis Expected: 09/25/2023, Expires: 11/25/2023 [facility] Work Phone: Comment on above: Expected: 09/25/2023 , Expires: 11/25/2023 Start: 09-25-2023 End: 11-25-2023 THYROID PEROXIDASE ANTIBODY BLOOD THYROID PEROXIDASE ANTIBODY BLOOD Lab Routine Mariana's thyroiditis Expected: 09/25/2023, Expires: 11/25/2023 [facility] Work Phone: Comment on above: Expected: 09/25/2023 , Expires: 11/25/2023 Start: 09-25-2023 End: 11-25-2023 Thyrotropin [Units/volume] in Serum or Plasma TSH BLD Lab Routine Mariana's thyroiditis Expected: 09/25/2023, Expires: 11/25/2023 [facility] Work Phone: Comment on above: Expected: 09/25/2023 , Expires: 11/25/2023 Start: 09-25-2023 End: 11-25-2023 Thyroxine (T4) free [Mass/volume] in Serum or Plasma T4 FREE/FREE THYROX Lab Routine Mariana's thyroiditis Expected: 09/25/2023, Expires: 11/25/2023 [facility] Work Phone: Comment on above: Expected: 09/25/2023 , Expires: 11/25/2023 Start: 09-25-2023 End: 11-25-2023 Triiodothyronine (T3) Free [Mass/volume] in Serum or Plasma T3 FREE BLD Lab Routine Mariana's thyroiditis Expected: 09/25/2023, Expires: 11/25/2023 [facility] Work Phone: Comment on above: Expected: 09/25/2023 , Expires: 11/25/2023 Start: 09-01-2023 Fat [Presence] in Stool [facility] Start: 09-01-[address] [facility] Start: 09-01-2023 Celiac disease screen [facility] Start: 09-01-2023 Immunoglobulin measurement [facility] Start: 09-01-2023 Serum immunofixation [facility] Start: 09-01-2023 [facility] Start: 09-01-2023 Procedure [facility] Start: 07-07-2023 Covid-19 Vaccine ( season) Covid-19 Vaccine ( season) [facility] Start: 07-07-2023 Influenza vaccination [facility] Start: 06-24-2023 Adult depression screening assessment DEPRESSION SCREENING [facility] Start: 2023 RSV Vaccine (1 - 1-d ose 60+ series) RSV Vaccine (1 - 1-dose 60+ series) [facility] Start: 2023 RSV Vaccine (1 - Ris k 60-74 years 1-dose series) RSV Vaccine (1 - Risk 60-74 years 1-dose series) [facility] Start: 05-05-2023 Influenza vaccination INFLUENZA (#1) [facility] Comment on above: Postponed from 07/07 (Declined at this time) Start: 03-16-2023 Procedure [facility] Start: 03-10-2023 End: 05-10-2023 Thyrotropin [Units/volume] in Serum or Plasma TSH BLD Lab Routine Mariana's thyroiditis Expected: 03/10/2023, Expires: 05/10/2023 [facility] Work Phone: Comment on above: Expected: 03/10/2023 , Expires: 05/10/2023 Start: 03-10-2023 End: 05-10-2023 Thyroxine (T4) free [Mass/volume] in Serum or Plasma T4 FREE/FREE THYROX Lab Routine Mariana's thyroiditis Expected: 03/10/2023, Expires: 05/10/2023 [facility] Work Phone: Comment on above: Expected: 03/10/2023 , Expires: 05/10/2023 Start: 03-10-2023 End: 05-10-2023 Triiodothyronine (T3) [Mass/volume] in Serum or Plasma T3 BLD Lab Routine Mariana's thyroiditis Expected: 03/10/2023, Expires: 05/10/2023 [facility] Work Phone: Comment on above: Expected: 03/10/2023 , Expires: 05/10/2023 Start: 03-08-2023 Patient referral [facility] Work Phone: Start: 02-11-2023 COVID-19 VACCINE (#1) COVID-19 VACCI NE (#1) [facility] Comment on above: Postponed from 11/21 (Declined at this time) Start: 02-11-2023 COVID-19 VACCINE (1) COVID-19 VACCIN E (1) [facility] Comment on above: Postponed from 05/21 (Declined at this time) Start: 12-24-2022 End: 02-23-2023 Thyrotropin [Units/volume] in Serum or Plasma TSH BLD Lab Routine Mariana's thyroiditis Expected: 12/24/2022, Expires: 02/23/2023 [facility] Work Phone: Comment on above: Expected: 12/24/2022 , Expires: 02/23/2023 Start: 12-24-2022 End: 02-23-2023 Thyroxine (T4) free [Mass/volume] in Serum or Plasma T4 FREE/FREE THYROX Lab Routine Mariana's thyroiditis Expected: 12/24/2022, Expires: 02/23/2023 [facility] Work Phone: Comment on above: Expected: 12/24/2022 , Expires: 02/23/2023 Start: 12-24-2022 End: 02-23-2023 Triiodothyronine (T3) [Mass/volume] in Serum or Plasma T3 BLD Lab Routine Mariana's thyroiditis Expected: 12/24/2022, Expires: 02/23/2023 [facility] Work Phone: Comment on above: Expected: 12/24/2022 , Expires: 02/23/2023 Start: 12-16-2022 End: 02-15-2023 CELIAC COMPREHENSIVE PANEL [facility] Work Phone: Comment on above: Expected: 12/16/2022 , Expires: 02/15/2023 Start: 12-16-2022 End: 02-15-2023 TESTOSTERONE, FREE AND TOTAL [facility] Work Phone: Comment on above: Expected: 12/16/2022 , Expires: 02/15/2023 Start: 11-06-2022 DEPRESSION ASSESSMENT DEPRESSION ASS ESSMENT [facility] Start: 09-04-2022 End: 11-04-2022 Thyrotropin [Units/volume] in Serum or Plasma TSH BLD Lab Routine Mariana's thyroiditis Expected: 09/04/2022, Expires: 11/04/2022 [facility] Work Phone: Comment on above: Expected: 09/04/2022 , Expires: 11/04/2022 Start: 09-04-2022 End: 11-04-2022 Thyroxine (T4) free [Mass/volume] in Serum or Plasma T4 FREE/FREE THYROX Lab Routine Mariana's thyroiditis Expected: 09/04/2022, Expires: 11/04/2022 [facility] Work Phone: Comment on above: Expected: 09/04/2022 , Expires: 11/04/2022 Start: 07-07-2022 Influenza vaccination [facility] Start: 07-02-2022 [facility] Work Phone: Start: 05-07-2022 Adult depression screening assessment DEPRESSION SCREENING [facility] Start: 11-06-2021 DEPRESSION ASSESSMENT DEPRESSION ASS ESSMENT [facility] Start: 2018 PROSTATE CANCER SCRE ENING DISCUSSION PROSTATE CANCER SCREENING DISCUSSION [facility] Start: 2013 Pneumococcal Vaccine : 50+ (1 of 1 - PCV) Pneumococcal Vaccine: 50+ (1 of 1 - PCV) [facility] Start: 2013 SHINGRIX VACCINE (1 of 2) NEGRON GRIX VACCINE (1 of 2) [facility] Start: 2008 COLOGUARD (FIT-DNA) COLOGUARD (FIT-D NA) [facility] Start: 2008 Colonoscopy COLONOSCOPY [facility] Start: 2008 COLORECTAL CANCER SCREENING COLORECTAL CANCER SCREENING [facility] Start: [address] COLONOGRAPHY [facility] Start: 2008 FECAL OCCULT BLOOD FECAL OCCULT BLOO D [facility] Start: 2008 Screening for malign ant neoplasm of colon [facility] Start: 2008 SIGMOIDOSCOPY SIGMOIDOSCOPY [facility] Start: 1982 Urine microalbumin profile DTAP,TDAP,TD (1 - Tdap) [facility] Start: 1981 Anxiety Screening Anxiety Screening [facility] Start: 1981 Depression Screening Depression Scre ening [facility] Start: 1981 HEPATITIS C SCREENING HEPATITIS C [facility] Start: 1981 Hepatitis C screening Hepatitis C [facility] Start: 1981 HIV SCREENING HIV SCREENING [facility] Start: 1981 HIV screening HIV Screening [facility] Start: 1963 HEPATITIS B (1 of 3 - 3-dose series) HEPATITIS B (1 of 3 - 3-dose series) [facility] [place] IgE Ab [Units/volume] in Serum [facility] Apple IgE Ab [Units/volume] in Serum [facility] Gonzalez's yeast IgE Ab [Units/volume] in Serum [facility] Banana IgE Ab [Units/volume] in Serum [facility] Barley RAST [facility] Beef IgE Ab [Units/volume] in Serum [facility] [place] Nut IgE Ab [Units/volume] in Serum [facility] Carrot IgE Ab [Units/volume] in Serum [facility] Cashew nut IgE Ab [Units/volume] in Serum [facility] Chicken IgE Ab [Units/volume] in Serum [facility] Codfish IgE Ab [Units/volume] in Serum [facility] [place] IgE Ab [Units/volume] in Serum [facility] Cow milk IgE Ab [Units/volume] in Serum [facility] Crab IgE Ab [Units/volume] in Serum [facility] End: 07-14-2025 CTA Chest vessels W contrast IV CTA CHEST (GATED) W IVCON Radiology Routine Myalgia Aortic dilatation (HCC) Aortic root dilation (HCC) Palpitations Moderate aortic stenosis Bicuspid aortic valve Palpitation Bradycardia Chest pain, unspecified type Celiac disease Disorder of artery or arteriole (HCC) Pre-operative cardiovascular examination 1 Occurrences starting 06/14/2024 until 07/14/2025 [facility] Work Phone: Comment on above: 1 Occurrences starti ng 06/14/2024 until 07/14/2025 CTA Chest vessels W contrast IV CTA CHEST (GATED) W IVCON Radiology Routine Myalgia Aortic dilatation (HCC) Aortic root dilation (HCC) Palpitations Moderate aortic stenosis Bicuspid aortic valve Palpitation Bradycardia Chest pain, unspecified type Celiac disease Disorder of artery or arteriole (HCC) Pre-operative cardiovascular examination 06/24/2024 12:46 PM EDT [facility] Work Phone: End: 07-24-2025 CTA Chest vessels W contrast IV CTA CHEST (GATED) W IVCON Radiology Routine Encounter for preprocedural cardiovascular examination 1 Occurrences starting 06/24/2024 until 07/24/2025 [facility] Work Phone: Comment on above: 1 Occurrences starti ng 06/24/2024 until 07/24/2025 ECG COMPLETE ECG COMPLETE ECG Routine Palpitations Bradycardia Aortic valve disorder Ordered: 05/29/2024 [facility] Comment on above: Ordered: 05/29/2024 End: 06-11-2025 ECG COMPLETE ECG COMPLETE ECG Routine Aortic valve disorder 1 Occurrences starting 06/11/2024 until 06/11/2025 [facility] Work Phone: Comment on above: 1 Occurrences starti ng 06/11/2024 until 06/11/2025 End: 07-09-2025 ECG COMPLETE ECG COMPLETE ECG Routine Nonrheumatic aortic valve stenosis 1 Occurrences starting 07/09/2024 until 07/09/2025 [facility] Work Phone: Comment on above: 1 Occurrences starti ng 07/09/2024 until 07/09/2025 End: 07-10-2025 ECG COMPLETE ECG COMPLETE ECG Routine Encounter for preprocedural cardiovascular examination Nonrheumatic aortic valve stenosis Bicuspid aortic valve Aortic ectasia, thoracic (HCC) 1 Occurrences starting 07/10/2024 until 07/10/2025 [facility] Work Phone: Comment on above: 1 Occurrences starti ng 07/10/2024 until 07/10/2025 End: 06-24-2023 Echocardiography ECHO Cardiology Routine Aortic valve disorder 1 Occurrences starting 06/24/2022 until 06/24/2023 [facility] Work Phone: Comment on above: 1 Occurrences starti ng 06/24/2022 until 06/24/2023 End: 05-29-2025 Echocardiography ECHO Cardiology Routine Palpitations Bradycardia Aortic valve disorder 1 Occurrences starting 05/29/2024 until 05/29/2025 [facility] Work Phone: Comment on above: 1 Occurrences starti ng 05/29/2024 until 05/29/2025 End: 06-11-2025 Echocardiography ECHO Cardiology Routine Aortic valve disorder 1 Occurrences starting 06/11/2024 until 06/11/2025 [facility] Comment on above: 1 Occurrences starti ng 06/11/2024 until 06/11/2025 End: 06-14-2025 Echocardiography ECHO Cardiology Routine Myalgia Aortic dilatation (HCC) Aortic root dilation (HCC) Palpitations Moderate aortic stenosis Bicuspid aortic valve Palpitation Bradycardia Chest pain, unspecified type Celiac disease Disorder of artery or arteriole (HCC) Pre-operative cardiovascular examination 1 Occurrences starting 06/14/2024 until 06/14/2025 [facility] Comment on above: 1 Occurrences starti ng 06/14/2024 until 06/14/2025 End: 07-11-2025 Echocardiography ECHO Cardiology Routine Bicuspid aortic valve 1 Occurrences starting 07/11/2024 until 07/11/2025 [facility] Work Phone: Comment on above: 1 Occurrences starti ng 07/11/2024 until 07/11/2025 Egg white IgE Ab [Units/volume] in Serum [facility] Egg whole IgE ab rat io ser [facility] Egg yolk IgE Ab [Units/volume] in Serum [facility] Fat [Mass/mass] in Stool [facility] Fat.neutral [Presenc e] in Stool [facility] Garlic IgE Ab [Units/volume] in Serum [facility] End: 02-22-2024 Gi imag intraluminal esophagus-ileum w/i&r CAPSULE ENDOSCOPY SMALL BOWEL Endoscopy Routine Generalized abdominal pain Acute constipation Unintentional weight change 1 Occurrences starting 02/21/2023 until 02/22/2024 [facility] Work Phone: Comment on above: 1 Occurrences starti ng 02/21/2023 until 02/22/2024 Gluten IgE Ab [Units/volume] in Serum [facility] INTERACTIVE HEART [place] RGERY PROGRAM INTERACTIVE HEART SURGERY PROGRAM Procedures Routine Moderate aortic stenosis Bicuspid aortic valve Aortic dilatation (HCC) Myalgia Palpitation Bradycardia Celiac disease Aortic root dilation (HCC) Pre-operative cardiovascular examination Ordered: 06/26/2024 [facility] Comment on above: Ordered: 06/26/2024 Lobster IgE Ab [Units/volume] in Serum [facility] End: 07-26-2025 LUNG DIFFUSION CAPACITY (DLCO) LUNG DIFFUSION CAPACITY (DLCO) PFT Routine Moderate aortic stenosis Bicuspid aortic valve Aortic dilatation (HCC) Myalgia Palpitation Bradycardia Celiac disease Aortic root dilation (HCC) Pre-operative cardiovascular examination 1 Occurrences starting 06/26/2024 until 07/26/2025 [facility] Comment on above: 1 Occurrences starti ng 06/26/2024 until 07/26/2025 LUNG DIFFUSION CAPAC ITY (DLCO) LUNG DIFFUSION CAPACITY (DLCO) PFT Routine Moderate aortic stenosis Bicuspid aortic valve Aortic dilatation (HCC) Myalgia Palpitation Bradycardia Celiac disease Aortic root dilation (HCC) Pre-operative cardiovascular examination 07/03/2024 10:26 AM EDT [facility] Work Phone: Measurement of immunoglobulin A in serum specimen [facility] End: 03-07-2026 MR Brain WO contrast MRI BRAIN [facility] Radiology Routine Double vision with both eyes open 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 Headaches Leg cramping 1 Occurrences starting 02/05/2025 until 03/07/2026 [facility] Work Phone: Comment on above: 1 Occurrences starti ng 02/05/2025 until 03/07/2026 Onion IgE Ab [Units/volume] in Serum [facility] [place] IgE Ab [Units/volume] in Serum [facility] OUTSIDE VENDOR CARDI AC OUTPATIENT EXTENDED RHYTHM RECORDING (WITHOUT TELEMETRY) OUTSIDE VENDOR CARDIAC OUTPATIENT EXTENDED RHYTHM RECORDING (WITHOUT TELEMETRY) Holter Routine Palpitations Bradycardia Aortic valve disorder Ordered: 05/29/2024 [facility] Comment on above: Ordered: 05/29/2024 Patient Education [facility] Work Phone: Patient referral [facility] Work Phone: Pea IgE Ab [Units/vo lume] in Serum [facility] [place] IgE Ab [Units/volume] in Serum [facility] Peanut IgE Ab [Units/volume] in Serum [facility] Pecan or [place] Nut IgE Ab [Units/volume] in Serum [facility] Pork IgE Ab [Units/volume] in Serum [facility] Potato IgE Ab [Units/volume] in Serum [facility] Procedure [facility] Protein measurement [facility] Rice IgE Ab [Units/volume] in Serum [facility] [place] IgE Ab [Units/volume] in Serum [facility] End: 01-02-2024 Screening colonoscopy COLONOSCOPY SCREENING Endoscopy Routine Screening for colon cancer 1 Occurrences starting 01/02/2023 until 01/02/2024 [facility] Work Phone: Comment on above: 1 Occurrences starti ng 01/02/2023 until 01/02/2024 Shrimp IgE Ab [Units/volume] in Serum [facility] Soybean IgE Ab [Units/volume] in Serum [facility] End: 07-26-2025 SPIROMETRY BASELINE ONLY SPIROMETRY BASELINE ONLY PFT Routine Moderate aortic stenosis Bicuspid aortic valve Aortic dilatation (HCC) Myalgia Palpitation Bradycardia Celiac disease Aortic root dilation (HCC) Pre-operative cardiovascular examination 1 Occurrences starting 06/26/2024 until 07/26/2025 [facility] Comment on above: 1 Occurrences starti ng 06/26/2024 until 07/26/2025 SPIROMETRY BASELINE ONLY SPIROME TRY BASELINE ONLY PFT Routine Moderate aortic stenosis Bicuspid aortic valve Aortic dilatation (HCC) Myalgia Palpitation Bradycardia Celiac disease Aortic root dilation (HCC) Pre-operative cardiovascular examination 07/03/2024 10:26 AM EDT [facility] Work Phone: [place] IgE Ab [Units/volume] in Serum [facility] Tomato IgE Ab [Units/volume] in Serum [facility] Tuna IgE Ab [Units/volume] in Serum [facility] [place] meat IgE Ab [Units/volume] in Serum [facility] End: 06-26-2025 US Carotid arteries - bilateral US CAROTID ARTERIES [facility] Vascular Lab Routine Moderate aortic stenosis Bicuspid aortic valve Aortic dilatation (HCC) Myalgia Palpitation Bradycardia Celiac disease Aortic root dilation (HCC) Pre-operative cardiovascular examination 1 Occurrences starting 06/26/2024 until 06/26/2025 [facility] Comment on above: 1 Occurrences starti ng 06/26/2024 until 06/26/2025 End: 07-15-2023 Us soft tissue head & neck real time imge docm US THYROID/PARATHYROID Radiology Routine [place]iana's thyroiditis 1 Occurrences starting 06/15/2022 until 07/15/2023 [facility] Work Phone: Comment on above: 1 Occurrences starti ng 06/15/2022 until 07/15/2023 Us soft tissue head & neck real time imge docm US THYROID/PARATHYROID Radiology Routine [place]iana's thyroiditis 06/17/2022 11:45 AM EDT [facility] Work Phone: [place] [facility] Wheat IgE Ab [Units/volume] in Serum [facility] Payers Date Payer Category Payer Self-pay 2023 Private Health Insurance [employer] [id number] 2019 [id number] 2019-Present [phone] [address] [address] [place] [address] Indemnity [id number] 2019 Unknown [id number] 2019 Unknown [id number] 1965 Unknown [id number] 1965 Unknown [id number] 356 Unknown [id number] Unknown [id number] 462 Unknown [id number] 462 Unknown [id number]. 462 Unknown [id number] 462 Unknown [id number]. 462 Unknown [id number] 462 Unknown [id number] 462 Unknown [id number] 462 Unknown [id number] 462 Unknown [id number] 462 Unknown [id number] 462 Social History Date Type Detail Facility Start: 12-25-2019 End: 06-24-2024 Tobacco smoking status NHIS Ex-smoker [facility] Start: 11-06-1974 End: 11-06-1979 History of tobacco use Current smoker [facility] Start: 11-06-1974 End: 11-06-1979 History of tobacco use Cigarette Smoker [facility] Start: 12-25-2019 End: 03-13-2023 Cigarettes smoked current (pack per day) - Reported 1 [facility] Start: 12-25-2019 End: 06-24-2024 Tobacco use and exposure Smokeless tobacco non-user [facility] Start: 02-11-2022 End: 02-05-2025 Alcohol intake Current drinker of alcohol (finding) [facility] Start: 05-07-2021 End: 11-03-2022 History SDOH Alcohol Frequency 3 [facility] Start: 05-07-2021 End: 11-03-2022 History SDOH Alcohol Std Drinks 1 [facility] Start: 05-07-2021 End: 11-03-2022 History SDOH Social Connections Phone 2 [facility] Start: 05-07-2021 History SDOH Physica l Activity DPW 6 [facility] Start: 05-07-2021 History SDOH Physica l Activity MPS 98 [facility] Start: 05-07-2021 End: 11-03-2022 History SDOH Financial 5 [facility] Start: 05-07-2021 Education 12 [facility] Start: 1965 Sex Assigned At Not on file C [facility] Start: 02-01-2022 End: 07-13-2022 Exposure to SARS-CoV-2 (event) Not sure [facility] Work Phone: Start: 07-02-2022 End: 09-01-2023 Tobacco smoking status UTIS Unknown if ever smoked [facility] Start: 1965 Sex Assigned At Male [facility] Start: 11-03-2022 History SDOH Social Connections Phone 4 [facility] Start: 11-03-2022 End: 03-13-2023 Social connection and isolation panel [facility] Do you belong to any clubs or organizations such as alevism groups, unions, fraternal or athletic groups, or school groups? No [facility] Are you now , , , , never or living with a partner? [facility] How often to you hav e a drink containing alcohol? Monthly or less [facility] How many standard dr inks containing alcohol do you have on a typical day? 1 or 2 [facility] How often do you hav e 6 or more drinks on 1 occasion? Never [facility] Start: 10-07-2012 How hard is it for y ou to pay for the very basics like food, housing, medical care, and heating Not hard at all [facility] (I/We) worried ayla er (my/our) food would run out before (I/we) got money to buy more. Never true [facility] How hard is it for y ou to pay for the very basics like food, housing, medical care, and heating Not very hard [facility] Do you feel stress - tense, restless, nervous, or anxious, or unable to sleep at night because your mind is troubled all the time - these days [OSQ] Only a little [facility] Medical Equipment Procedure Code Equipment Code Equipment Origin al Text Equipment Identifier Dates Ring Michelle-Jackson Physio Ii 34mm Cocr Silicone Polyester Annuloplasty - [id number] Start: 07-04-2024 Ring Jackson Mc3 28mm Titanium Silicone Rubber Polyester Annuloplasty 1 - [id number] Start: 07-04-2024 Sternal Plate Sy stem Straight 4 Hole Concave - [id number] Start: 07-04-2024 3.5 X 14mm Self-Drilling Locking Screw Blue - [id number] Start: 07-04-2024 Valve Jackson Inspiris Resilia 25mm Pericardial Aortic Bioprosthesis - [id number] Start: 07-04-2024 Comment on above: Description: Inspiri s ezequiel Goals Date Patient Goal Desired Activity /State Personal health goal Personal health goal Functional Status Date Assessment Result Facility 07-02-2024 Are you deaf, or do you have serious difficulty hearing No 07/02/2024 7:15 PM Mei Cruz RN No [facility] 07-02-2024 Are you blind, or do you have serious difficulty seeing, even when wearing glasses No 07/02/2024 7:15 PM Mei Cruz RN No [facility] 07-02-2024 Do you have serious difficulty walking or climbing stairs No 07/02/2024 7:15 PM Mei Cruz RN No [facility] 07-02-2024 Do you have difficul ty dressing or bathing No 07/02/2024 7:15 PM Mei Cruz RN No [facility] 07-02-2024 Because of a physica l, mental, or emotional condition, do you have difficulty doing errands alone such as visiting a physician's office or shopping No 07/02/2024 7:15 PM Mei Cruz RN No [facility] Mental Status Date Assessment Result Facility 07-02-2024 Because of a physica l, mental, or emotional condition, do you have serious difficulty concentrating, remembering, or making decisions No 07/02/2024 7:15 PM Mei Cruz RN No [facility] 07-02-2022 Cognitive function Level Of Cons ciousness Awake;Alert;Appropriate;Fol lows Commands [facility] Work Phone: 07-02-2022 Cognitive function Level Of Cons ciousness Awake;Alert;Appropriate;Fol lows Commands [facility] Work Phone: Clinical Notes 02-11-2022 to 06-16-2025 Telephone Encounter - Tika Anderson LPN - 06/16/2025 11:29 AM EDTTelephone Encounter - Tika Anderson LPN - 06/16/2025 11:29 AM EDTTelephone Encounter - Tika Anderson LPN - 05/27/2025 4:08 PM EDT Note Date & Type Note Facility 06-16-2025 Telephone encounter Note Turned into a phone note and sent to provider. [facility] 06-16-2025 Miscellaneous Notes Turned into a phone note and sent to provider. documented in this encounter [facility] 06-03-2025 Telephone encounter Note PSA ordered. and patient requesting labs for prostate cancer screening. Kath Thakur PA-C [facility] 06-03-2025 Miscellaneous Notes PSA ordered. and patient requesting labs for prostate cancer screening. Kath Thakur PA-C documented in this encounter [facility] 05-29-2025 Telephone encounter Note Pt's called and is notified of providers results and instructions. She voices understanding. Bernarda Olvera, OTIS [facility] 05-29-2025 Miscellaneous Notes Pt's called and is notified of providers results and instructions. She voices understanding. Bernarda Olvera, RN Refer to TE from 03/26: Please let him know that overall his labs look great. No changes to thyroid hormone needed, testosterone level is adequate and vitamin D level is also great Great work! Alverto Ceja, DO I have placed thyroid labs now to continue to monitor. No changes currently. Thank you, Dari Payton APRN.TWIST PACKER you had checked my thyroid and a couple other things and I never heard back regarding the results. I am still doing the 2 different dosages every other day for thyroid. I never heard back on whether I should continue this / are things moving in the right direction? Can you put in to recheck my tsh t3 and t4 so we can see if I need to continue to make changes or not? and how did the other items look to you? documented in this encounter [facility] 05-29-2025 Telephone encounter Note Refer to TE from 03/26: Please let him know that overall his labs look great. No changes to thyroid hormone needed, testosterone level is adequate and vitamin D level is also great Great work! Alverto Ceja, DO I have placed thyroid labs now to continue to monitor. No changes currently. Thank you, Dari Payton APRN.TWIST PACKER [facility] 05-27-2025 Telephone encounter Note Turned into phone note and sent to provider. [facility] 05-27-2025 Miscellaneous Notes Turned into phone note and sent to provider. documented in this encounter [facility] 05-27-2025 Telephone encounter Note you had checked my thyroid and a couple other things and I never heard back regarding the results. I am still doing the 2 different dosages every other day for thyroid. I never heard back on whether I should continue this / are things moving in the right direction? Can you put in to recheck my tsh t3 and t4 so we can see if I need to continue to make changes or not? and how did the other items look to you? [facility] 03-19-2025 Telephone encounter Note Labs ordered Alverto Ceja DO [facility] 03-19-2025 Miscellaneous Notes Labs ordered Alverto Ceja DO documented in this encounter [facility] 02-20-2025 Telephone encounter Note Patient's calling and requesting refill of pt's levothyroxine 75 mcg. States pt never increased to 88 mcg this month as ordered by Yi BARRAGAN , after getting further advise from Dr. Ceja that it would be ok to continue the 75 mcg dosing. (Per 02/07/25 Phone Note). Refill pended as requested. The patient has been identified by name and date of : Yes Caregiver verified no other encounters exist for this prescription request: Yes Caregiver confirmed with patient/requestor that no other refills are due, in the near future, with this provider at this time: Yes The last office visit in the department: 02/05/2025 Does the patient have a future office visit with this provider/department: *to be scheduled Requested Prescriptions Pending Prescriptions Disp Refills levothyroxine (LEVOXYL) 75 mcg tablet 90 tablet 1 Sig: Take 1 tablet by mouth once daily. Take on empty stomach. For Thyroid Edith Benson RN [facility] 02-20-2025 Miscellaneous Notes Patient's calling and requesting refill of pt's levothyroxine 75 mcg. States pt never increased to 88 mcg this month as ordered by Yi BARRAGAN , after getting further advise from Dr. Ceja that it would be ok to continue the 75 mcg dosing. (Per 02/07/25 Phone Note). Refill pended as requested. The patient has been identified by name and date of : Yes Caregiver verified no other encounters exist for this prescription request: Yes Caregiver confirmed with patient/requestor that no other refills are due, in the near future, with this provider at this time: Yes The last office visit in the department: 02/05/2025 Does the patient have a future office visit with this provider/department: *to be scheduled Requested Prescriptions Pending Prescriptions Disp Refills levothyroxine (LEVOXYL) 75 mcg tablet 90 tablet 1 Sig: Take 1 tablet by mouth once daily. Take on empty stomach. For Thyroid Edith Benson RN documented in this encounter [facility] 02-11-2025 Telephone encounter Note Pt. informed. [facility] Work Phone: 02-11-2025 Miscellaneous Notes Pt. informed. Please let him know that I was out of the office when this message was sent to me last week. I am sorry for any delay in being able to see this and get back with him Okay to continue his same dosing of thyroid medication/hormone and not increase it. I understand his concerns about how hyperthyroid would affect him. No changes in medication are needed Alverto Ceja DO Pt's calling in with questions about a phone call pt received with results and instructions on changing his thyroid medication dosage. Called pt and had three way call to discuss. Please see 02/06/25 result encounter. 1) Pt and have concerns about pt increasing his Levothyroxine. They are concerned if he increases his Levothyroxine, that it will increase his T4 levels and he will become hyperthyroid. They would like Dr. Ceja to review all of his lab results and get her recommendation on whether he should increase his dose or not. Their concern is that his system is so sensitive and that Dr. Ceja keeps a real close eye on his labs and med to keep him controlled. Explained that Rosa Henson and Dr. Ceja work as a team and collaborate, but they are still requesting that Dr. Ceja review and give her recommendations. 2) Pt and had questions about getting the MRI of his brain completed. Wondering if labwork was okay that he would not need to get the test done. Per pt's symptoms and Rosa's office note, with pt's visual disturbances, encouraged them to proceed with testing. They would also like Dr. Ceja to review the results when completed. MRI is rescheduled to 02/10. documented in this encounter [facility] 02-11-2025 Telephone encounter Note Please let him know that I was out of the office when this message was sent to me last week. I am sorry for any delay in being able to see this and get back with him Okay to continue his same dosing of thyroid medication/hormone and not increase it. I understand his concerns about how hyperthyroid would affect him. No changes in medication are needed Alverto Ceja DO [facility] 02-10-2025 History of Present illness Narrative Radiology Service Progress Note PATIENT NAME: Thuy Kim DATE OF SERVICE: February 10, 2025 TIME: 12:59 PM PATIENT IDENTITY VERIFICATION COMPLETED USING TWO (2) IDENTIFIERS: Name and Date of confirmed by patient verbally. FALL SCREENING: Has the patient had 2 falls in the last year or 1 fall with injury or currently using an Ambulatory Assistive Device (Walker, Cane, Wheelchair, Crutches, etc.)? No PATIENT GENDER DATA: Assigned male at PATIENT RELEVANT IMPLANT DATA REVIEWED: Yes PATIENT PRESENTS WITH AN IMPLANTABLE OR ATTACHED MEDICAL OFFICE MANAGER: No RADIOLOGY DEPARTMENT: MR; Exam(s) Completed: Head: Routine Brain PERIPHERAL IV DATA: Not applicable SIGNED BY: RT Amy(R) February 10, 2025 12:59 PM documented in this encounter [facility] 02-10-2025 Note [facility] 02-07-2025 Telephone encounter Note Pt's calling in with questions about a phone call pt received with results and instructions on changing his thyroid medication dosage. Called pt and had three way call to discuss. Please see 02/06/25 result encounter. 1) Pt and have concerns about pt increasing his Levothyroxine. They are concerned if he increases his Levothyroxine, that it will increase his T4 levels and he will become hyperthyroid. They would like Dr. Ceja to review all of his lab results and get her recommendation on whether he should increase his dose or not. Their concern is that his system is so sensitive and that Dr. Ceja keeps a real close eye on his labs and med to keep him controlled. Explained that Rosa Henson and Dr. Ceja work as a team and collaborate, but they are still requesting that Dr. Ceja review and give her recommendations. 2) Pt and had questions about getting the MRI of his brain completed. Wondering if labwork was okay that he would not need to get the test done. Per pt's symptoms and Rosa's office note, with pt's visual disturbances, encouraged them to proceed with testing. They would also like Dr. Ceja to review the results when completed. MRI is rescheduled to 02/10. [facility] 02-06-2025 Telephone encounter Note Increase sent, then we'll recheck thyroid labs again in 3 months. The following approved medication requests have been transmitted electronically. Requested Prescriptions Signed Prescriptions Disp Refills levothyroxine (SYNTHROID) 88 mcg tablet 90 tablet 1 Sig: Take 1 tablet by mouth daily before breakfast. Rosa Henson APRN.CNP [facility] 02-06-2025 Miscellaneous Notes Increase sent, then we'll recheck thyroid labs again in 3 months. The following approved medication requests have been transmitted electronically. Requested Prescriptions Signed Prescriptions Disp Refills levothyroxine (SYNTHROID) 88 mcg tablet 90 tablet 1 Sig: Take 1 tablet by mouth daily before breakfast. Rosa Henson APRN.CNP Pt informed. Pt ok with increase. Bozena Denny MA Please let him know I received his lab results. His thyroid levels are all in normal range, but Dr. Ceja typically like a TSH level to run about 1.5 or a little lower, she feels people function well at this level. I would recommend we increase his levothyroxine dose if he is agreeable? Otherwise everything else looks great, no concerns. Rosa Henson APRN.CNP documented in this encounter [facility] 02-06-2025 Telephone encounter Note Pt informed. Pt ok with increase. Bozena Denny MA [facility] 02-06-2025 Telephone encounter Note Please let him know I received his lab results. His thyroid levels are all in normal range, but Dr. Ceja typically like a TSH level to run about 1.5 or a little lower, she feels people function well at this level. I would recommend we increase his levothyroxine dose if he is agreeable? Otherwise everything else looks great, no concerns. Rosa Henson APRN.LAUREL [facility] 02-05-2025 History of Present illness Narrative Chief Complaint No chief complaint on file. HPI Thuy Kim is a 59 year old male who presents here today for Above Complaints.. Patient reports he experiences double vision, can't focus, and it feels like his eyes are going crossed. Started about a year ago and has been consistent. Once a month he has these episodes and they last a few seconds. Sometimes has feelings of passing out when his vision starts to tunnel and gets black which has happened a few times in the past year which lasts a few seconds. Patient states he closes his eyes and it will go away on it's own. No known triggers that he is aware of. Had appointment with eye doctor 01/06/25 and states eye exam was completely normal, eye doctor thinks it could be ocular migraine. Has twitching and spasms in this calves has been going for years, not getting better or worse. Patient states he thinks when he isn't eating healthy this makes it worse- has celiac disease. Past medical history, appointments, medications, allergies reviewed. Previous Medical History PAST MEDICAL HISTORY Diagnosis Date Anxiety Aortic root dilation (HCC) Bicuspid aortic valve Mariana's thyroiditis Migraine-cluster headache syndrome Moderate aortic stenosis Palpitation Previous Surgical History PAST SURGICAL HISTORY Procedure Laterality Date APPENDECTOMY age 11 -- after rupture APPENDECTOMY HX COLONOSCOPY 01/23/2023 repeat in 10 years EGD W/O BRSH SPEC VARICIES INJ 03/06/2023 KNEE SURGERY HX torn meniscus Family History FAMILY HISTORY Problem Relation Age of Onset Heart Failure Mother Emphysema Mother Heart Attack Father Coronary Artery Disease Father stent Diabetes Father Kidney Disease Father Patient Allergies ALLERGIES Allergen Reactions Iv Contrast [Iodine] Other: See Comments Shaking, seizure like activity per pt Prednisone Mental Status Change Steroid psychosis Gluten GI Upset Lactose GI Upset [place] Other: See Comments palpitations Pork/Porcine Contai* Other: See Comments palpitations Potato Other: See Comments palpitations Solanum- Nightshade* Other: See Comments palpitations Tree Nuts Other: See Comments Patient reports palpitations Current Medications Current Outpatient Medications on File Prior to Visit Medication Sig levothyroxine (LEVOXYL) 75 mcg tablet Take 1 tablet by mouth once daily. Take on empty stomach. For Thyroid acetaminophen (TYLENOL) 325 mg tablet Take 2 tablets by mouth every 4 hours as needed for pain. aluminum-magnesium hydroxide-simethicone 200-200-20 mg/5 mL suspension Take 30 mL by mouth as needed (Second Line Therapy). aspirin 81 mg chewable tablet Take 1 tablet by mouth once daily. furosemide (LASIX) 20 mg tablet Take 1 tablet by mouth once daily for 3 days. magnesium oxide (MAG-OX) 400 mg (241.3 mg magnesium) tablet Take 1 tablet by mouth two times a day for 14 days. metoprolol tartrate, short acting, (LOPRESSOR) 25 mg tablet Take 1 tablet by mouth every 12 hours. polyethylene glycol 3350 17 gram packet 1 Packet by ORAL/FEEDING TUBE route two times a day as needed for constipation. Dissolve dose in 4 - 8 ounces of liquid and take as directed. senna-docusate (SENNA-S) 8.6-50 mg per tablet Take 2 tablets by mouth two times a day as needed for constipation. tamsulosin (FLOMAX) 0.4 mg Take 1 capsule by mouth once daily. iv contrast (will be provided with radiology test) CTA Chest. No IV access, insert saline lock prior to the sedation, infusion, injection for imaging exam. Discontinue saline lock post exam. If Pt. has a central line or IVAD, may access for administration according to line specific nursing protocol. Once exam is complete flush line and de-access according to line specific nursing protocol in the CT contrast administration guidelines link. doxycycline (VIBRA-TABS) 100 mg tablet Take 1 tablet by mouth prn, at first sign of tick bite. No current facility-administered medications on file prior to visit. Social History Social History Tobacco Use Smoking status: Former Current packs/day: 0.00 Average packs/day: 1 pack/day for 5.0 years (5.0 ttl pk-yrs) Types: Cigarettes Start date: 1974 Quit date: 1979 Years since quittin.2 Smokeless tobacco: Never Vaping Use Vaping status: Never Used Substance Use Topics Alcohol use: Yes Alcohol/week: 14.0 standard drinks of alcohol Types: 14 Cans of Beer (12oz) per week Drug use: Not Currently Review of Symptoms REVIEW OF SYSTEMS See HPI, otherwise negative EXAM: There were no vitals taken for this visit. General Appearance: Well appearing, alert, in no acute distress, well-hydrated, well nourished.. Eyes: Anicteric sclera. Pupils are equally round and reactive to light. Extraocular movements are intact. . Lungs: Lungs clear to auscultation. No wheezing, rhonchi, rales.. Heart: RRR without murmur, gallop, or rubs. No ectopy. Neurologic: Gait normal. Reflexes normal and symmetric. Sensation grossly intact. Psychiatric: pleasant, cooperative Health Maintenance List Depression Screening Never done Anxiety Screening Never done Hepatitis C Screening Never done HIV Screening Never done Shingrix Vaccine(1 of 2) Never done Pneumococcal Vaccine: 50+(1 of 1 - PCV) Never done RSV Vaccine(1 - Risk 60-74 years 1-dose series) Never done Influenza Vaccine(1) Never done Covid-19 Vaccine( - season) Never done Diabetes Screening due on 07/22/2027 Prostate Cancer Screening Discussion due on 12/16/2027 DTaP,Tdap,Td Vaccine(3 - Td or Tdap) due on 12/31/2028 Lipid Screening due on 07/22/2029 Colorectal Cancer Screening due on 01/23/2033 Data reviewed Previous records, office notes ASSESSMENT/PLAN: 1. Double vision with both eyes open - ICD9: 368.2, ICD10: H53.2 (primary diagnosis) - Checking for iron/vitamin/electrolyte imbalances - Rule out thyroid causes - checking TSH, T4, thyroglobulin antibody - Ordered brain MRI to evaluate for structural causes - VITAMIN B12 - THYROID STIMULATING HORMONE - T4 FREE/FREE THYROXINE - MRI BRAIN WO IVCON - MAGNESIUM - COMPREHENSIVE METABOLIC PANEL - THYROID PEROXIDASE ANTIBODY - THYROGLOBULIN ANTIBODY - COMPLETE BLOOD COUNT - IRON AND TIBC - T3 2. 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 Headaches - ICD9: 784.0, ICD10: R51.9 - Checking for iron/vitamin/electrolyte imbalances - Rule out thyroid causes - checking TSH, T4, thyroglobulin antibody - Ordered brain MRI to evaluate for structural causes - VITAMIN B12 - THYROID STIMULATING HORMONE - T4 FREE/FREE THYROXINE - MRI BRAIN WO IVCON - MAGNESIUM - COMPREHENSIVE METABOLIC PANEL - THYROID PEROXIDASE ANTIBODY - THYROGLOBULIN ANTIBODY - COMPLETE BLOOD COUNT - IRON AND TIBC - T3 4. Leg cramping - ICD9: 729.82, ICD10: R25.2 -- Checking for iron/vitamin/electrolyte imbalances - VITAMIN B12 - THYROID STIMULATING HORMONE - T4 FREE/FREE THYROXINE - MRI BRAIN WO IVCON - MAGNESIUM - COMPREHENSIVE METABOLIC PANEL - THYROID PEROXIDASE ANTIBODY - THYROGLOBULIN ANTIBODY - COMPLETE BLOOD COUNT - IRON AND TIBC - T3 Will follow-up with results Nazanin Scott Attending Note I have personally performed a face to face assessment of the patient and have reviewed the NATHANIEL note and I agree. Other additions or changes: As edited Signature: Rosa Henson Date: 02/05/2025 Time: 3:23 PM documented in this encounter [facility] 02-05-2025 Note [facility] 01-08-2025 Note [facility] 01-08-2025 History of Present illness Narrative QOL Call Tracking Documentation Follow-Up Type: Phone Call Call Attempt: 1st Attempt Call Status: Patient will complete in MyChart documented in this encounter [facility] 10-09-2024 Note [facility] 10-09-2024 History of Present illness Narrative QOL Call Tracking Documentation Follow-Up Type: Phone Call Call Attempt: 1st Attempt Call Status: Patient will complete in MyChart documented in this encounter [facility] 08-29-2024 Telephone encounter Note Prescription Refill Information The patient has been identified by name and date of : Yes Caregiver verified no other encounters exist for this prescription request: Yes Caregiver confirmed with patient/requestor that no other refills are due, in the near future, with this provider at this time: Yes The last office visit in the department: 07/16/24 Does the patient have a future office visit with this provider/department: No Requested Prescriptions Pending Prescriptions Disp Refills levothyroxine (LEVOXYL) 75 mcg tablet 90 tablet 1 Sig: Take 1 tablet by mouth once daily. Take on empty stomach. For Thyroid Tika Anderson LPN August 29, 2024 2:07 PM [facility] 08-29-2024 Miscellaneous Notes Prescription Refill Information The patient has been identified by name and date of : Yes Caregiver verified no other encounters exist for this prescription request: Yes Caregiver confirmed with patient/requestor that no other refills are due, in the near future, with this provider at this time: Yes The last office visit in the department: 07/16/24 Does the patient have a future office visit with this provider/department: No Requested Prescriptions Pending Prescriptions Disp Refills levothyroxine (LEVOXYL) 75 mcg tablet 90 tablet 1 Sig: Take 1 tablet by mouth once daily. Take on empty stomach. For Thyroid Tika Anderson LPN August 29, 2024 2:07 PM documented in this encounter [facility] 08-08-2024 Note [facility] 08-08-2024 History of Present illness Narrative QOL Call Tracking Documentation Follow-Up Type: Phone Call Call Attempt: 1st Attempt Call Status: Patient will complete in Extended System[employer]art documented in this encounter [facility] 07-22-2024 Telephone encounter Note Record ID: [id number] Patient name: Thuy Kim Date: July 22, 2024 - 01:28 Administered by: NILAY Protocol: -> Great! Now we are in a secure chat environment. Protecting your health information is important to us. Ok, let's get started. Please verify your name and date of . Please click on the button with your first name. -> Thuy Got it. On to the next question... Select the button with your last name. -> Julio Got it, thank you. Please enter your date of in MM/DD/YYYY format:(e.g., 11/24/1971 for Nov 24, 1971) -> 1965 Thank you for verifying your information. I'd like to ask you a few questions about how your recovery is going. Have there been any new or worsening symptoms since your last response? -> No I'm glad to hear that. Thank you for your time and for allowing us to care for you. Please be sure to reach out to your provider for any further symptoms or needs. Please rate your satisfaction with the care and support you have received from us since you have been home: (scale 1-5; 1 worst and 5 best) -> 3 Please tell me what you liked best about your experience: -> pre op and operation. after are has been disappointing Please tell me what you liked least about your experience: -> aftercare [facility] 07-22-2024 Miscellaneous Notes Record ID: [id number] Patient name: Thuy Kim Date: July 22, 2024 - : Administered by: NILAY Protocol: -> Great! Now we are in a secure chat environment. Protecting your health information is important to us. Ok, let's get started. Please verify your name and date of . Please click on the button with your first name. -> Thuy Got it. On to the next question... Select the button with your last name. -> Julio Got it, thank you. Please enter your date of in MM/DD/YYYY format:(e.g., 11/24/1971 for [birth year], 1971) -> 1965 Thank you for verifying your information. I'd like to ask you a few questions about how your recovery is going. Have there been any new or worsening symptoms since your last response? -> No I'm glad to hear that. Thank you for your time and for allowing us to care for you. Please be sure to reach out to your provider for any further symptoms or needs. Please rate your satisfaction with the care and support you have received from us since you have been home: (scale 1-5; 1 worst and 5 best) -> 3 Please tell me what you liked best about your experience: -> pre op and operation. after are has been disappointing Please tell me what you liked least about your experience: -> aftercare documented in this encounter [facility] 07-18-2024 Telephone encounter Note Pt informed via [facility] message Bozena Denny MA [facility] 07-18-2024 Miscellaneous Notes Pt informed via [facility] message Bozena Denny MA Lab orders placed. Rosa Henson APRN.TWIST PACKER Pt sent in [employer] message on 07/18/24 with an update regarding his thyroid and requesting labs. Pt current Rx is Levoxyl 75 mcg once daily per med list. Please review and advise. Niya Hunter MA Pt message: With recent surgery/hospital stay, they had me taking the full pill everyday. We had been doing half and full. Anyway, I would like to have thyroid labs tested to be sure of what dosage I should be taking. Can you call in TSH, t3, t4, and if needed test for mariana? Thanks documented in this encounter [facility] 07-18-2024 Telephone encounter Note Lab orders placed. Rosa Henosn APRN.TWIST PACKER [facility] 07-18-2024 Telephone encounter Note Pt sent in [employer] message on 07/18/24 with an update regarding his thyroid and requesting labs. Pt current Rx is Levoxyl 75 mcg once daily per med list. Please review and advise. Niya Hunter MA Pt message: With recent surgery/hospital stay, they had me taking the full pill everyday. We had been doing half and full. Anyway, I would like to have thyroid labs tested to be sure of what dosage I should be taking. Can you call in TSH, t3, t4, and if needed test for mariana? Thanks [facility] 07-18-2024 Telephone encounter Note Turned into TE and routed to TWIST PACKER who saw pt most recently. Niya Hunter MA [facility] 07-18-2024 Miscellaneous Notes Turned into TE and routed to TWIST PACKER who saw pt most recently. Niya Hunter MA documented in this encounter [facility] 07-17-2024 Telephone encounter Note Noted, thank you. Rosa Henson APRN.TWIST PACKER [facility] Work Phone: 07-17-2024 Miscellaneous Notes Noted, thank you. Rosa Henson APRN.TWIST PACKER Please see TE from cardiology. Bozena Denny MA Please see pt reply Bozena Denny MA documented in this encounter [facility] 07-17-2024 Telephone encounter Note Please see TE from cardiology. Bozena Denny MA [facility] 07-17-2024 Telephone encounter Note [facility] NATHANIEL July 17, 2024 Physician: Dr Katia Malone is inquiring about when to hold his BB. He takes Metoprolol 25 mg twice a day. His currently BP/HR are BP 91/53, HR:50 He took his Metoprolol this am. He is experiencing some dizziness/lightheadedness due to the lower HR. Recommend: Hold Metoprolol when HR is less than 60 bpm. If HR is greater than 60 bpm, then take 1/2 tab of Metoprolol (12.5mg). Follow up with Fountain Operator. Laisha Velazquez APRN.CNP [facility] Work Phone: 07-17-2024 Miscellaneous Notes [facility] NATHANIEL July 17, 2024 Physician: Dr Katia Malone is inquiring about when to hold his BB. He takes Metoprolol 25 mg twice a day. His currently BP/HR are BP 91/53, HR:50 He took his Metoprolol this am. He is experiencing some dizziness/lightheadedness due to the lower HR. Recommend: Hold Metoprolol when HR is less than 60 bpm. If HR is greater than 60 bpm, then take 1/2 tab of Metoprolol (12.5mg). Follow up with Fountain Operator. Laisha Velazquez APRN.CNP documented in this encounter [facility] 07-17-2024 Telephone encounter Note Images from the original note were not included. [facility] Phone Encounter DATE of SERVICE: 07/17/2024 TIME of SERVICE: 8:40 AM Status: Non-urgent, needs attention Service/Provider: Cardiac Surgery Thomas Montalvo M.D. Reason for call: Medication Issue/Question Contact information: [phone] Resolution: Reinforced education and Sent to [employer] Comments: Pt calling in. States he has been experiencing low bp, lightheadedness. Pt on Lopressor 25 mg bid. BP running 90/50s HR in 50's. Pt took am dose at 0730. Checked BP/HR while on phone with me. BP 105/62 HR 52. Pt states that he gets lightheaded going from sitting to standing, and very fatigued. Advised to use caution and move slowly, continue to wear compression socks and maintain hydration. Pt asking if he should hold med if BP/HR too low or if dose could be lowered. Pt saw PCP yesterday and she deferred him to CTS. Please advise. Thank you Lori Evans RN Date of Resolution: 07/17/2024 Time of Resolution 8:40 AM [facility] 07-17-2024 Miscellaneous Notes Images from the original note were not included. [facility] Phone Encounter DATE of SERVICE: 07/17/2024 TIME of SERVICE: 8:40 AM Status: Non-urgent, needs attention Service/Provider: Cardiac Surgery Thomas Montalvo M.D. Reason for call: Medication Issue/Question Contact information: [phone] Resolution: Reinforced education and Sent to [employer] Comments: Pt calling in. States he has been experiencing low bp, lightheadedness. Pt on Lopressor 25 mg bid. BP running 90/50s HR in 50's. Pt took am dose at 0730. Checked BP/HR while on phone with me. BP 105/62 HR 52. Pt states that he gets lightheaded going from sitting to standing, and very fatigued. Advised to use caution and move slowly, continue to wear compression socks and maintain hydration. Pt asking if he should hold med if BP/HR too low or if dose could be lowered. Pt saw PCP yesterday and she deferred him to CTS. Please advise. Thank you Lori Evans RN Date of Resolution: 07/17/2024 Time of Resolution 8:40 AM documented in this encounter [facility] 07-17-2024 Telephone encounter Note Please see pt reply Bozena Denny MA [facility] 07-16-2024 Note [facility] 07-16-2024 History of Present illness Narrative Transitional Care Management Progress Note The patients TCM visit was performed within the 14 days of discharge. Patient's Date of discharge: 07/04/2024 Date of initial coordinator contact after discharge: 07/15/2024 Discharge diagnosis: mini anterior thoracotomy, graft ascending aorta w/valve suspension w/cardiopulmonary bypass for aortic disease Medication review completed Yes Rosa Henson APRN.TWIST PACKER Provider Documentation: In follow-up of hospitalization, Thuy Kim is a 59 year old male with the chief complaint of hospital f/u for heart surgery. I have reviewed the patient s last hospital course including diagnostic testing performed during this hospitalization, their discharge medications, and my assessment and plan with the patient and any family members present at today s visit. HPI: Surgery went well. Fatigued, sore. Is getting out and around. Doing little walks. Sitting outside. Has only needed Tylenol for pain. Has been walking around the house, has take two 15-minute walks with his dog and feels great with this. Wondering when he would be able to drive, also how much weight weight he can lift. Has been having back and neck pain, haven't improved but haven't gotten any worse. Has had some lower BPs, for ex systolic 90-110's. He does occasionally feel lightheaded, but typically only with change in positions too quickly. PAST MEDICAL HISTORY: Reviewed and updated ALLERGIES: Reviewed and updated MEDICATIONS: Reviewed and updated SOCIAL HISTORY: Reviewed and updated FAMILY HISTORY: Reviewed and updated REVIEW OF SYSTEMS: All other systems reviewed and negative, other than HPI. PHYSICAL EXAMINATION BP 102/62 Pulse 98 Resp 16 Wt 189 lb 6.4 oz (85.9kg) SpO2 97% General appearance: well appearing, alert, in no acute distress, and well-hydrated, well nourished, motor and sensory appear to be normal Lungs: clear to auscultation no wheezing or rhonchi Heart: RRR without murmur, gallop, or rubs. No ectopy Abdomen: Normal abdominal exam, Abdomen soft, non-tender. Bowel sounds normal. No masses, organomegaly Extremities: Extremities normal. No deformities, edema, or skin discoloration. Good capillary refill. Multiple incisions to right upper chest, upper abdomen, right groin; all look pink and scabbed, no warmth or redness, no drainage. 1. I have reviewed the patient record including associated test results during the last hospitalization Yes 2. I have reviewed Lab test Yes 3. I have reviewed Radiology test Yes 4. I reviewed assessment/plan with the patient/family member Yes ASSESSMENT/PLAN: 1. Status post cardiac surgery - ICD9: V45.89, ICD10: Z98.890 Will contact PRODUCTION SKI REPAIRER Ingrid Burns with cardiothoracic surgery who he will be seeing in August with specific questions regarding driving, his back and neck pain, metoprolol use. Otherwise no changes at appt today. He will continue to walk as able, IS-although can wean back on this the more he is able to be consistently active. No lifting above 10 pounds as instructed. F/u prn. Continue with f/u appt with cardiothoracic surgery on 08/08. Rosa Henson APRN.CNP July 16, 2024 9:58 AM documented in this encounter [facility] 07-15-2024 Telephone encounter Note Record ID: [id number] Patient name: Thuy Kim Date: July 15, 2024 - 02:48 Administered by: NILAY Protocol: -> Great! Now we are in a secure chat environment. Protecting your health information is important to us. Ok, let's get started. Please verify your name and date of . Please click on the button with your first name. -> Great! Now we are in a secure chat environment. Protecting your health information is important to us. Ok, let's get started. Please verify your name and date of . Please click on the button with your first name. -> Thuy Got it. On to the next question... Select the button with your last name. -> Julio Got it, thank you. Please enter your date of in MM/DD/YYYY format:(e.g., 11/24/1971 for Nov 24, 1971) -> 1965 Thank you for verifying your information. I'd like to ask you a few questions about how your recovery is going. Have you experienced any new or worsening symptoms since returning home? -> No I'm glad to hear that. Have you had a hospital follow-up appointment yet since your discharge? -> No [facility] 07-15-2024 Miscellaneous Notes Record ID: [id number] Patient name: Thuy Kim Date: July 15, 2024 - 02:48 Administered by: NILAY Protocol: -> Great! Now we are in a secure chat environment. Protecting your health information is important to us. Ok, let's get started. Please verify your name and date of . Please click on the button with your first name. -> Great! Now we are in a secure chat environment. Protecting your health information is important to us. Ok, let's get started. Please verify your name and date of . Please click on the button with your first name. -> Thuy Got it. On to the next question... Select the button with your last name. -> Julio Got it, thank you. Please enter your date of in MM/DD/YYYY format:(e.g., 11/24/1969 for Nov 24, 1969) -> 1965 Thank you for verifying your information. I'd like to ask you a few questions about how your recovery is going. Have you experienced any new or worsening symptoms since returning home? -> No I'm glad to hear that. Have you had a hospital follow-up appointment yet since your discharge? -> No documented in this encounter [facility] 07-11-2024 Telephone encounter Note [facility] NATHANIEL July 11, 2024 Physician: Dr.Koprivanac Kerr for pcp to remove suture from Right IJ. I called the patient back and left a voicemail. DANUTA Garrett [facility] Work Phone: 07-11-2024 Miscellaneous Notes [facility]ATH[facility] July 11, 2024 Physician: Dr.Koprivanac Kerr for pcp to remove suture from Right IJ. I called the patient back and left a voicemail. DANUTA Garrett [facility] documented in this encounter [facility] 07-11-2024 Telephone encounter Note Please advised patient can be removed at PCP follow up. No urgency. From the RIJ line for ICU. ThanksKayden APRN.CNP CTS OPD [facility] Work Phone: 07-11-2024 Miscellaneous Notes Please advised patient can be removed at PCP follow up. No urgency. From the RIJ line for ICU. ThanksKayden APRN.CNP CTS OPD 1. Have you noticed any increase in shortness of breath since you left the hospital? no 2. Have you noticed any increased swelling in your feet, ankles, or belly? Skip for vascular pts no 3. Have you gained more than 2-3 pounds since discharge? Skip for vascular & EP pts no 4. Have you noticed any change in your incision, wound, IV sites since you were discharged as we want you to be aware of any signs of infection (fevers, chills, redness, warmth, swelling, increased tenderness, discharge)? yes pt states he was told at d/c that all sutures were removed but he is home now and has found 2 sutures in neck site. Pt has appt with PCP on Monday and wonders if he is to wait until then for removal or if need removed prior. Instructions not found in d/c summary regarding remaining sutures. Please advise pt. 5. Are you having any increased pain since discharge? If yes: What type of pain and where? (pressure, sharp pain, dull pain, etc.) No 6. Have you had any unplanned trips to the emergency department or hospital since you were discharged? If yes - why? no 7. Did you fill all of the prescribed medications? If no, do you need help filling your prescription? (Figure out why they re not filled) Yes 8. Do you have any questions about your medications? No 9. Do you have a doctor s appointment scheduled or is someone working on getting you a follow-up appointment? Yes Additional Comments: Pt instructed to contact 24-hour nurse hotline [phone] for any questions or concerns. Pt verbalized understanding. PD nurse confirmed/verified patient's and full name. Non urgent incision question, will route to primary service pool. Do not have acces to page production machine tender PRODUCTION SKI REPAIRER/PA for service. Eladia Garcia RN documented in this encounter [facility] 07-11-2024 Telephone encounter Note 1. Have you noticed any increase in shortness of breath since you left the hospital? no 2. Have you noticed any increased swelling in your feet, ankles, or belly? Skip for vascular pts no 3. Have you gained more than 2-3 pounds since discharge? Skip for vascular & EP pts no 4. Have you noticed any change in your incision, wound, IV sites since you were discharged as we want you to be aware of any signs of infection (fevers, chills, redness, warmth, swelling, increased tenderness, discharge)? yes pt states he was told at d/c that all sutures were removed but he is home now and has found 2 sutures in neck site. Pt has appt with PCP on Monday and wonders if he is to wait until then for removal or if need removed prior. Instructions not found in d/c summary regarding remaining sutures. Please advise pt. 5. Are you having any increased pain since discharge? If yes: What type of pain and where? (pressure, sharp pain, dull pain, etc.) No 6. Have you had any unplanned trips to the emergency department or hospital since you were discharged? If yes - why? no 7. Did you fill all of the prescribed medications? If no, do you need help filling your prescription? (Figure out why they re not filled) Yes 8. Do you have any questions about your medications? No 9. Do you have a doctor s appointment scheduled or is someone working on getting you a follow-up appointment? Yes Additional Comments: Pt instructed to contact 24-hour nurse hotline [phone] for any questions or concerns. Pt verbalized understanding. PD nurse confirmed/verified patient's and full name. Non urgent incision question, will route to primary service pool. Do not have acces to page production machine tender PRODUCTION SKI REPAIRER/PA for service. Eladia Garcia RN [facility] 07-11-2024 Telephone encounter Note Record ID: [id number] Patient name: Thuy Kim Date: July 11, 2024 Administered by: NILAY Protocol: -> Great! Now we are in a secure chat environment. Protecting your health information is important to us. Ok, let's get started. Please verify your name and date of . Please click on the button with your first name. -> Thuy Got it. On to the next question... Select the button with your last name. -> Julio Got it, thank you. Please enter your date of in MM/DD/YYYY format:(e.g., 11/24/1969 for Nov 24, 1969) -> 1965 Thank you for verifying your information. I'd like to ask you a few questions about how your recovery is going. Since leaving the hospital, do you have any new or worsening symptoms? -> Yes And how have these symptoms changed since you first noticed them? -> Same [facility] 07-11-2024 Miscellaneous Notes Record ID: [id number] Patient name: Thuy Kim Date: July 11, 2024 - 09:27 Administered by: NILAY Protocol: -> Great! Now we are in a secure chat environment. Protecting your health information is important to us. Ok, let's get started. Please verify your name and date of . Please click on the button with your first name. -> Thuy Got it. On to the next question... Select the button with your last name. -> Julio Got it, thank you. Please enter your date of in MM/DD/YYYY format:(e.g., 11/24/1969 for Nov 24, 1969) -> 1965 Thank you for verifying your information. I'd like to ask you a few questions about how your recovery is going. Since leaving the hospital, do you have any new or worsening symptoms? -> Yes And how have these symptoms changed since you first noticed them? -> Same documented in this encounter [facility] 07-09-2024 Note [facility] 07-09-2024 Note [facility] 07-07-2024 Note [facility] 07-06-2024 Note [facility] 07-06-2024 Note [facility] 07-05-2024 Note [facility] 07-04-2024 Note [facility] 07-04-2024 Note [facility] 07-04-2024 Note [facility] 07-04-2024 Note [facility] 07-03-2024 Note Addended by: EDMUNDO WILKS on: 07/03/2024 03:39 PM Modules accepted: Orders [facility] 07-03-2024 Miscellaneous Notes Addended by: EDMUNDO WILKS on: 07/03/2024 03:39 PM Modules accepted: Orders documented in this encounter [facility] 07-03-2024 History of Present illness Narrative Cardiothoracic Anesthesiology Preoperative Assessment Service Date: 07/02/2024 Service Time: 3:24 PM Primary Care Physician: Alverto Ceja DO Subjective Patient Entered Data: 06/28/2024 Cardiothoracic Surgery Pre-Op Questionnaire Previous anesthesia problems No Family history anesthesia problems No Blood consent Yes Esophageal history None Implanted devices No History difficult airway No Airway surgery No Ongoing pain issues No Heparin intolerance No Daily alcohol use No Illicit drug use No Scheduled procedure: AVR and root repair. Surgeon: Thomas Montalvo Scheduled date: 07/04/2024 HPI: 59 year old male with PMH notable for: - Anxiety Aortic root dilation (HCC) Bicuspid aortic valve Mariana's thyroiditis Migraine-cluster headache syndrome Moderate aortic stenosis Palpitation Pt presents for preoperative evaluation prior to AVR and root repair. Patient instructed to: - Follow surgical instruction regarding warfarin/ASA therapy - Continue: levothyroxine Pt denies any problems with prior anesthetics. We additionally discussed the anesthetic plan, what to expect, and any questions or concerns the patient may have had. Review no known heparin intolerance not taking anticoagulant/antiplatelet medication no known esophageal disorders blood transfusion consented - COVID-19 Immunization Status Overdue - Covid-19 Vaccine () Never done 02/21/2023 Postponed until 02/22/2024 by Mariia Mendoza LPN (Declined at this time) 02/11/2022 Postponed until 02/11/2023 by Mariia Mendoza LPN (Declined at this time) The patient has the following: ACTIVE PROBLEM LIST Aortic Dilatation (Hcc) Aortic Valve Disorder Palpitations Mariana's Thyroiditis Obesity, Class I, Bmi 30-34.9 Well Adult Exam Dupuytren Contracture Moderate Aortic Stenosis Aortic Root Dilation (Hcc) Bicuspid Aortic Valve Palpitation Bradycardia Hypocalcemia Muscle Cramping Chest Pain Arthralgia Weight Loss Myalgia Celiac Disease Fatigue Muscle Weakness of Extremity PAST MEDICAL HISTORY No date: Anxiety No date: Aortic root dilation (HCC) No date: Bicuspid aortic valve No date: Mariana's thyroiditis No date: Migraine-cluster headache syndrome No date: Moderate aortic stenosis No date: Palpitation PAST SURGICAL HISTORY No date: APPENDECTOMY Comment: age 11 -- after rupture No date: APPENDECTOMY HX 01/23/2023: COLONOSCOPY Comment: repeat in 10 years 03/06/2023: EGD W/O BRSH SPEC VARICIES INJ No date: KNEE SURGERY HX Comment: torn meniscus FAMILY HISTORY Problem Relation Age of Onset Heart Failure Mother Emphysema Mother Heart Attack Father Coronary Artery Disease Father stent Diabetes Father Kidney Disease Father Social History Tobacco Use Smoking status: Former Current packs/day: 0.00 Average packs/day: 1 pack/day for 5.0 years (5.0 ttl pk-yrs) Types: Cigarettes Start date: 1974 Quit date: 1979 Years since quittin.6 Smokeless tobacco: Never Vaping Use Vaping status: Never Used Substance Use Topics Alcohol use: Yes Alcohol/week: 14.0 standard drinks of alcohol Types: 14 Cans of Beer (12oz) per week Drug use: Not Currently Prior to Admission medications as of 07/02/24 1005 Medication Sig Last Dose Taking iv contrast (will be provided with radiology test) CTA Chest. No IV access, insert saline lock prior to the sedation, infusion, injection for imaging exam. Discontinue saline lock post exam. If Pt. has a central line or IVAD, may access for administration according to line specific nursing protocol. Once exam is complete flush line and de-access according to line specific nursing protocol in the CT contrast administration guidelines link. Amoxicillin 500 mg tablet Take 4 tablets by mouth as directed. Take 1 hour prior to dental procedure for prophylaxis levothyroxine (LEVOXYL) 75 mcg tablet Take 1 tablet by mouth once daily. Take on empty stomach. For Thyroid doxycycline (VIBRA-TABS) 100 mg tablet Take 1 tablet by mouth prn, at first sign of tick bite. No medication comments found. ALLERGIES Allergen Reactions Iv Contrast [Iodine] Other: See Comments Shaking, seizure like activity per pt Prednisone Mental Status Change Steroid psychosis Objective Pain Assessment: Vitals: There were no vitals taken for this visit. Diagnostic tests reviewed for today's visit: Lab Value Units Date High Low HB 16.8 g/dL 07/02/2024 17.0 13.0 HCT 49.1 % 07/02/2024 51.0 39.0 WBC 9.61 k/uL 07/02/2024 11.00 3.70 PLT 137 k/uL 07/02/2024 400 150 NA 139 mmol/L 07/02/2024 144 136 K 4.0 mmol/L 07/02/2024 5.1 3.7 GLUC 141 mg/dL 07/02/2024 99 74 BUN 22 mg/dL 07/02/2024 24 9 CREAT 0.83 mg/dL 07/02/2024 1.22 0.73 PTSEC 10.9 sec 07/02/2024 13.0 9.7 INR 1.0 no uni* 07/02/2024 1.3 0.9 APTT 26.4 sec 07/02/2024 32.4 23.0 ALT 19 U/L 05/30/2024 54 10 AST 18 U/L 05/30/2024 40 14 TBILI 1.1 mg/dL 05/30/2024 1.3 0.2 TSH 1.150 mIU/L 07/02/2024 4.200 0.270 Lab Value Units Date High Low HCGQT No results within date range. UHCG No results within date range. HCG, BODY* No results within date range. Lab Value Units Date High Low ABORHD No results within date range. ABSCREEN No results within date range. Hemoglobin A1C (%) Date Value 05/30/2024 5.3 12/01/2020 5.6 08/16/2019 5.6 Recent Results (from the past 8760 hour(s)) CTA CHEST (GATED) W IVCON Collection Time: 06/24/24 12:46 PM Impression IMPRESSION: 1. Anatomic bicuspid aortic valve with severe leaflet thickening and calcification with a valve area of 1.6cm2 2. DILATED AORTIC ROOT: 4.1 x 3.3 cm measured [id number] STJ: 3.6 cm mid ASCENDING THORACIC AORTA: 4.3 cm No wall calcification 3. No definitive evidence of calcified atherosclerotic changes of the coronary arteries. However, the current study is not optimized for coronary assessment. Blood Bank Attendant: PSCB Transcribe Date/Time: Jun 25 2024 8:15A Dictated by : AMBER ARCINIEGA DO This examination was interpreted and the report reviewed and electronically signed by: AMBER ARCINIEGA DO on Jun 25 2024 8:50AM EST ECHO Collection Time: 06/24/24 10:45 AM Impression CONCLUSIONS: - Exam indication: Limited for - Left ventricular systolic function is normal. EF = 60 5% (visual est.) Left ventricular diastolic function was not evaluated due to inconsistent or technically suboptimal data. - The right ventricle is normal in size. Right ventricular systolic function is normal. - The visualized aorta is dilated with a maximal dimension of 4.4 cm. - Bicuspid aortic valve. There is trace (trace - 1+) aortic valve regurgitation. There is moderate aortic valve stenosis caused by calcified valve and restricted opening. AV area is 1.43 cm (0.68 cm /m ) by continuity, VTI. The peak gradient is 27 mmHg, the mean gradient is 16 mmHg and the dimensionless valve index is 0.34. Prior peak/mean gradients 29/16 mmHg. - Exam was compared with the prior echocardiographic exam performed on 06/06/2024, similar findings. * * * Final * * * ECG COMPLETE Collection Time: 06/24/24 8:15 AM Impression SINUS RHYTHM WITH FREQUENT PREMATURE VENTRICULAR COMPLEXES LOW VOLTAGE QRS, CONSIDER PULMONARY DISEASE, PERICARDIAL EFFUSION, OR NORMAL VARIANT BORDERLINE ECG Assessment No problem-specific Assessment & Plan notes found for this encounter. ANESTHESIA FINDINGS: Intubation History: Significant Anesthesia Considerations: Airway History: Prepared for Surgery: The Following Tests/Procedures Have Been Initiated: No orders of the defined types were placed in this encounter. ASA Class: 4 Planned Anesthetic: general I - PHYSICAL EVALUATION AIRWAY Patient intubated: No. Tracheostomy tube not present Mallampati: II. TM distance: >3 FB. Neck ROM: full ROM without neurological symptoms. Mouth opening: adequate. Short neck: no. Thick neck: no DENTAL Dental findings: teeth intact. II - ANESTHESIA PLAN ASA Score: 4 Anesthetic Plan: general Airway type: ETT Beta Ashley Monitoring Plan Post Procedure Analgesic Plan Informed Consent Anesthetic risks, benefits, alternatives, personnel and consent discussed: yes. Patient / Responsible Republican agrees to proceed: yes Patient / Surrogate agrees to blood products: Yes Instructions Given to Patient: Instructions located in the after visit summary. Patient given verbal and written preop instructions and voices comprehension and compliance. Signature: Edmundo Wilks DO Patient Name: Thuy Kim Date: July 02, 2024 Time: 3:24 PM Pager/Contact #: documented in this encounter [facility] 07-03-2024 Note [facility] 07-03-2024 Note [facility] 07-03-2024 History of Present illness Narrative AMBULATORY PATIENT EDUCATION READINESS TO LEARN Cognitive Ability: Alert and oriented Motivation To Learn: Interested Family Support: High - Very involved in pt care Instruction Provided To: Patient & Family Patient Learns Best By: Multiple Methods Factors Affecting Learning: None Physical Limitations Affecting Learning: None LEARNING RESPONSE Diagnosis: AAA Education Topic: Pre-Op Open Heart Surgery Instructions Teaching Points: Logistics / Protocols /Complication Prevention How prepared do you feel you are for this visit: 6 Instruction/Supplemental Materials: Cardiac Surgery Information Binder Individual Instruction Patient/Family Response: Somewhat Follow up plan: Patient/Family to call [facility] with any further questions Referral (Recommendation): None Teach completed, topic: Patient provided with Cardiac Surgery binder and reviewed. Patient educated on pre-operative instructions and advised to call [facility] with any further questions documented in this encounter [facility] 07-03-2024 History and physical note CHART COPY-DO NOT DISCARD CARDIOVASCULAR SURGERY PRE-OPERATIVE ASSESSMENT NAME: Thuy Kim Alert Notes: DATE: 07/03/2024 SEX: male : 1965 AGE: [age] year old Estimated body mass index is 25.77 kg/m as calculated from the following: Height as of 06/24/24: 182.9 cm (6'). Weight as of 06/24/24: 86.2 kg (190 lb). STS Score Surgeon: Thomas Montalvo MD Intended procedure: Mauricio v Chad Patient scheduled for surgery on: 07/04/2024 [facility] MD: Karolina Jonas M.D. CHIEF COMPLAINT: Pre-Op Open Heart Surgery MEDICATIONS: Current Outpatient Medications Medication Sig Amoxicillin 500 mg tablet Take 4 tablets by mouth as directed. Take 1 hour prior to dental procedure for prophylaxis doxycycline (VIBRA-TABS) 100 mg tablet Take 1 tablet by mouth prn, at first sign of tick bite. iv contrast (will be provided with radiology test) CTA Chest. No IV access, insert saline lock prior to the sedation, infusion, injection for imaging exam. Discontinue saline lock post exam. If Pt. has a central line or IVAD, may access for administration according to line specific nursing protocol. Once exam is complete flush line and de-access according to line specific nursing protocol in the CT contrast administration guidelines link. levothyroxine (LEVOXYL) 75 mcg tablet Take 1 tablet by mouth once daily. Take on empty stomach. For Thyroid No current facility-administered medications for this visit. ALLERGIES: ALLERGIES Allergen Reactions Iv Contrast [Iodine] Other: See Comments Shaking, seizure like activity per pt Prednisone Mental Status Change Steroid psychosis Gluten GI Upset Lactose GI Upset [place] Other: See Comments palpitations Pork/Porcine Contai* Other: See Comments palpitations Potato Other: See Comments palpitations Solanum- Nightshade* Other: See Comments palpitations Tree Nuts Other: See Comments Patient reports palpitations LATEX ALLERGY: No FOOD SENSITIVITIES: Yes see Epic ANTICOAGULANTS: none STEROIDS: Yes Last dose 07/02 prednisone for pre-medication HISTORIES: FAMILY HISTORY Problem Relation Age of Onset Heart Failure Mother Emphysema Mother Heart Attack Father Coronary Artery Disease Father stent Diabetes Father Kidney Disease Father PAST MEDICAL HISTORY No date: Anxiety No date: Aortic root dilation (HCC) No date: Bicuspid aortic valve No date: Mariana's thyroiditis No date: Migraine-cluster headache syndrome No date: Moderate aortic stenosis No date: Palpitation PAST SURGICAL HISTORY No date: APPENDECTOMY Comment: age 11 -- after rupture No date: APPENDECTOMY HX 01/23/2023: COLONOSCOPY Comment: repeat in 10 years 03/06/2023: EGD W/O BRS SPEC VARICIES INJ No date: KNEE SURGERY HX Comment: torn meniscus Social History Tobacco Use Smoking status: Former Current packs/day: 0.00 Average packs/day: 1 pack/day for 5.0 years (5.0 ttl pk-yrs) Types: Cigarettes Start date: 1974 Quit date: 1979 Years since quittin.6 Smokeless tobacco: Never Vaping Use Vaping status: Never Used Substance Use Topics Alcohol use: Yes Alcohol/week: 14.0 standard drinks of alcohol Types: 14 Cans of Beer (12oz) per week Drug use: Not Currently REVIEW OF SYSTEMS: GEN: Fatigue over the course of the last 6-9 months and gradually increasing - can still complete basic ADLs independently, but has stopped working recently and gets worn out with any kind of exertion HEENT: Glasses, Hard of Hearing moderate loss, s/p; tonsillectomy < 12 years DERM: Denies Dermatological Complaints IMPORT COORDINATION AND PRODUCTION HEAD: Headache/Migraine migraines chronic in 20s and 30s but resolved, ocular migraine - occasional, Dizziness with exertion and dehydration RESP: Dyspnea with mild exertion CARD: CAD non-obstructive, Valvular Heart Disease BAV/, Arrhythmias SVT/PVCs, dilated aortic root, atypical chest pain associated with anxiety GI: PUD r/t celiac - resolved with diet changes, IBS with constipation, diverticulosis, s/p appendectomy : Denies complaints ENDO: Hypothyroid Mariana's on levothyroxine HEME: Denies Hematological complaints MUSC/SKEL: myalgias r/t food sensitivities, R hand Dupuytrens contracture, R knee meniscus tear s/p arthroscopic repair PVD: Denies PVD Varicose Veins: No BRUITS (Carotid): No PULSES: Pedal Left 2 Right 2 NYHA CLASSIFICATION: Class 1 FAMILY HISTORY OF CAD: Yes father ? PERFUSION INDEX: Pacer Check: NA CARDIAC EVALUATION: Cardiac Cath: Date - 07/02/2024 Ultrasound: Date - pending PFT: Date - 07/03/2024 ECHO: Last ECHO Result Conclusion ECHO Collected: 06/24/2024 10:45 AM (Final result) Impression: CONCLUSIONS: - Exam indication: Limited for - Left ventricular systolic function is normal. EF = 60 5% (visual est.) Left ventricular diastolic function was not evaluated due to inconsistent or technically suboptimal data. - The right ventricle is normal in size. Right ventricular systolic function is normal. - The visualized aorta is dilated with a maximal dimension of 4.4 cm. - Bicuspid aortic valve. There is trace (trace - 1+) aortic valve regurgitation. There is moderate aortic valve stenosis caused by calcified valve and restricted opening. AV area is 1.43 cm (0.68 cm /m ) by continuity, VTI. The peak gradient is 27 mmHg, the mean gradient is 16 mmHg and the dimensionless valve index is 0.34. Prior peak/mean gradients 29/16 mmHg. - Exam was compared with the prior CC echocardiographic exam performed on 06/06/2024, similar findings. * * * Final * * * CT Scan: Last CT Result Conclusion CTA CHEST (GATED) W IVCON Exam End: 06/24/2024 12:46 PM (Final result) Impression: IMPRESSION: 1. Anatomic bicuspid aortic valve with severe leaflet thickening and calcification with a valve area of 1.6cm2 2. DILATED AORTIC ROOT: 4.1 x 3.3 cm measured [id number] STJ: 3.6 cm mid ASCENDING THORACIC AORTA: 4.3 cm No wall calcification 3. No definitive evidence of calcified atherosclerotic changes of the coronary arteries. However, the current study is not optimized for coronary assessment. Blood Bank Attendant: LELO Transcribe Date/Time: Jun 25 2024 8:15A Dictated by : AMBER ARCINIEGA DO This examination was interpreted and the report reviewed and electronically signed by: AMBER ARCINIEGA DO on Jun 25 2024 8:50AM EST MRI: CXR: No results found. EKG: Last EKG Result Conclusion ECG COMPLETE Collected: 06/24/2024 8:15 AM (Preliminary result) Impression: SINUS RHYTHM WITH FREQUENT PREMATURE VENTRICULAR COMPLEXES LOW VOLTAGE QRS, CONSIDER PULMONARY DISEASE, PERICARDIAL EFFUSION, OR NORMAL VARIANT BORDERLINE ECG Dental: Cleared ? Recent Labs 07/02/24 1018 07/02/24 0912 WBC 9.61 -- HB 16.8 -- HCT 49.1 -- PLT 137* -- INR -- 1.0 APTT -- 26.4 PTSEC -- 10.9 NA 139 -- K 4.0 -- BUN 22 -- CREAT 0.83 -- Pre Op Instructions per protocol reviewed and handout given to patient . Patient Education completed and documented. Instructed to start Bactroban per protocol. Emotional support provided to patient and family. All questions and concerns adressed. Signature: Tash Bermudez RN See Cardiology History and Physical dated 06/24/2024 [facility] 07-03-2024 History and physical note CHART COPY-DO NOT DISCARD CARDIOVASCULAR SURGERY PRE-OPERATIVE ASSESSMENT NAME: Thuy Kim Alert Notes: DATE: 07/03/2024 SEX: male : 1965 AGE: [age] year old Estimated body mass index is 25.77 kg/m as calculated from the following: Height as of 06/24/24: 182.9 cm (6'). Weight as of 06/24/24: 86.2 kg (190 lb). STS Score Surgeon: Thomas Montalvo MD Intended procedure: Mauricio Bonilla Patient scheduled for surgery on: 07/04/2024 [facility] MD: Karolina Jonas M.D. CHIEF COMPLAINT: Pre-Op Open Heart Surgery MEDICATIONS: Current Outpatient Medications Medication Sig Amoxicillin 500 mg tablet Take 4 tablets by mouth as directed. Take 1 hour prior to dental procedure for prophylaxis doxycycline (VIBRA-TABS) 100 mg tablet Take 1 tablet by mouth prn, at first sign of tick bite. iv contrast (will be provided with radiology test) CTA Chest. No IV access, insert saline lock prior to the sedation, infusion, injection for imaging exam. Discontinue saline lock post exam. If Pt. has a central line or IVAD, may access for administration according to line specific nursing protocol. Once exam is complete flush line and de-access according to line specific nursing protocol in the CT contrast administration guidelines link. levothyroxine (LEVOXYL) 75 mcg tablet Take 1 tablet by mouth once daily. Take on empty stomach. For Thyroid No current facility-administered medications for this visit. ALLERGIES: ALLERGIES Allergen Reactions Iv Contrast [Iodine] Other: See Comments Shaking, seizure like activity per pt Prednisone Mental Status Change Steroid psychosis Gluten GI Upset Lactose GI Upset [place] Other: See Comments palpitations Pork/Porcine Contai* Other: See Comments palpitations Potato Other: See Comments palpitations Solanum- Nightshade* Other: See Comments palpitations Tree Nuts Other: See Comments Patient reports palpitations LATEX ALLERGY: No FOOD SENSITIVITIES: Yes see Epic ANTICOAGULANTS: none STEROIDS: Yes Last dose 07/02 prednisone for pre-medication HISTORIES: FAMILY HISTORY Problem Relation Age of Onset Heart Failure Mother Emphysema Mother Heart Attack Father Coronary Artery Disease Father stent Diabetes Father Kidney Disease Father PAST MEDICAL HISTORY No date: Anxiety No date: Aortic root dilation (HCC) No date: Bicuspid aortic valve No date: Mariana's thyroiditis No date: Migraine-cluster headache syndrome No date: Moderate aortic stenosis No date: Palpitation PAST SURGICAL HISTORY No date: APPENDECTOMY Comment: age 11 -- after rupture No date: APPENDECTOMY HX 01/23/2023: COLONOSCOPY Comment: repeat in 10 years 03/06/2023: EGD W/O [facility] SPEC VARICIES INJ No date: KNEE SURGERY HX Comment: torn meniscus Social History Tobacco Use Smoking status: Former Current packs/day: 0.00 Average packs/day: 1 pack/day for 5.0 years (5.0 ttl pk-yrs) Types: Cigarettes Start date: 1974 Quit date: 1979 Years since quittin.6 Smokeless tobacco: Never Vaping Use Vaping status: Never Used Substance Use Topics Alcohol use: Yes Alcohol/week: 14.0 standard drinks of alcohol Types: 14 Cans of Beer (12oz) per week Drug use: Not Currently REVIEW OF SYSTEMS: GEN: Fatigue over the course of the last 6-9 months and gradually increasing - can still complete basic ADLs independently, but has stopped working recently and gets worn out with any kind of exertion HEENT: Glasses, Hard of Hearing moderate loss, s/p; tonsillectomy < 12 years DERM: Denies Dermatological Complaints IMPORT COORDINATION AND PRODUCTION HEAD: Headache/Migraine migraines chronic in 20s and 30s but resolved, ocular migraine - occasional, Dizziness with exertion and dehydration RESP: Dyspnea with mild exertion CARD: CAD non-obstructive, Valvular Heart Disease BAV/, Arrhythmias SVT/PVCs, dilated aortic root, atypical chest pain associated with anxiety GI: PUD r/t celiac - resolved with diet changes, IBS with constipation, diverticulosis, s/p appendectomy : Denies complaints ENDO: Hypothyroid Mariana's on levothyroxine HEME: Denies Hematological complaints MUSC/SKEL: myalgias r/t food sensitivities, R hand Dupuytrens contracture, R knee meniscus tear s/p arthroscopic repair PVD: Denies PVD Varicose Veins: No BRUITS (Carotid): No PULSES: Pedal Left 2 Right 2 NYHA CLASSIFICATION: Class 1 FAMILY HISTORY OF CAD: Yes father ? PERFUSION INDEX: Pacer Check: NA CARDIAC EVALUATION: Cardiac Cath: Date - 07/02/2024 Ultrasound: Date - pending PFT: Date - 07/03/2024 ECHO: Last ECHO Result Conclusion ECHO Collected: 06/24/2024 10:45 AM (Final result) Impression: CONCLUSIONS: - Exam indication: Limited for - Left ventricular systolic function is normal. EF = 60 5% (visual est.) Left ventricular diastolic function was not evaluated due to inconsistent or technically suboptimal data. - The right ventricle is normal in size. Right ventricular systolic function is normal. - The visualized aorta is dilated with a maximal dimension of 4.4 cm. - Bicuspid aortic valve. There is trace (trace - 1+) aortic valve regurgitation. There is moderate aortic valve stenosis caused by calcified valve and restricted opening. AV area is 1.43 cm (0.68 cm /m ) by continuity, VTI. The peak gradient is 27 mmHg, the mean gradient is 16 mmHg and the dimensionless valve index is 0.34. Prior peak/mean gradients 29/16 mmHg. - Exam was compared with the prior CC echocardiographic exam performed on 06/06/2024, similar findings. * * * Final * * * CT Scan: Last CT Result Conclusion CTA CHEST (GATED) W IVCON Exam End: 06/24/2024 12:46 PM (Final result) Impression: IMPRESSION: 1. Anatomic bicuspid aortic valve with severe leaflet thickening and calcification with a valve area of 1.6cm2 2. DILATED AORTIC ROOT: 4.1 x 3.3 cm measured [id number] STJ: 3.6 cm mid ASCENDING THORACIC AORTA: 4.3 cm No wall calcification 3. No definitive evidence of calcified atherosclerotic changes of the coronary arteries. However, the current study is not optimized for coronary assessment. Blood Bank Attendant: PSCB Transcribe Date/Time: Jun 25 2024 8:15A Dictated by : AMBER ARCINIEGA DO This examination was interpreted and the report reviewed and electronically signed by: AMBER ARCINIEGA DO on Jun 25 2024 8:50AM EST MRI: CXR: No results found. EKG: Last EKG Result Conclusion ECG COMPLETE Collected: 06/24/2024 8:15 AM (Preliminary result) Impression: SINUS RHYTHM WITH FREQUENT PREMATURE VENTRICULAR COMPLEXES LOW VOLTAGE QRS, CONSIDER PULMONARY DISEASE, PERICARDIAL EFFUSION, OR NORMAL VARIANT BORDERLINE ECG Dental: Cleared ? Recent Labs 07/02/24 1018 07/02/24 0912 WBC 9.61 -- HB 16.8 -- HCT 49.1 -- PLT 137* -- INR -- 1.0 APTT -- 26.4 PTSEC -- 10.9 NA 139 -- K 4.0 -- BUN 22 -- CREAT 0.83 -- Pre Op Instructions per protocol reviewed and handout given to patient . Patient Education completed and documented. Instructed to start Bactroban per protocol. Emotional support provided to patient and family. All questions and concerns adressed. Signature: Tash Bermudez RN See Cardiology History and Physical dated 06/24/2024 documented in this encounter [facility] 07-03-2024 Note HNO ID: [id number] Author: WILLA PATTON RRT Service: ? Author Type: Registered Resp Therapist Type: Progress Notes Filed: 07/03/2024 10:49 Note Text: PULM FUNCTION: Provider: Jai Tijerina MD Spirometry: 1 DLCO: 1 System: [place] [facility] - [id number] [facility] 07-03-2024 History of Present illness Narrative PULM FUNCTION: Provider: Jai Tijerina MD Spirometry: 1 DLCO: 1 System: MC10 - [id number] documented in this encounter [facility] 07-01-2024 Telephone encounter Note CARDIOVASCULAR LAB INSTRUCTIONS: Readiness to Learn: Cognitive Ability: Alert and oriented Motivation To Learn: Interested Family/Significant Other Support: High - Very involved in pt care Instruction Provided To: Spouse Patient Learns Best By: Verbal Instruction Factors Affecting Learning: None Physical Limitations Affecting Learning: None Learning Response: Procedure: Left Heart Diagnostic Pre procedure education topics: Arrival time/NPO Status/Medications/Travel Instructions/Restrictions Patient/Family Response Evaluation: Verbalizes understanding Follow Up Plan and Medication: As directed by physician Instruction/Supplemental Material Given: Cardiac catheterization instructions, procedure information, hospital information, hotel information. Instructed By Tika Thomas RN. In Department of CARDIOLOGY. [facility] 07-01-2024 Miscellaneous Notes CARDIOVASCULAR LAB INSTRUCTIONS: Readiness to Learn: Cognitive Ability: Alert and oriented Motivation To Learn: Interested Family/Significant Other Support: High - Very involved in pt care Instruction Provided To: Spouse Patient Learns Best By: Verbal Instruction Factors Affecting Learning: None Physical Limitations Affecting Learning: None Learning Response: Procedure: Left Heart Diagnostic Pre procedure education topics: Arrival time/NPO Status/Medications/Travel Instructions/Restrictions Patient/Family Response Evaluation: Verbalizes understanding Follow Up Plan and Medication: As directed by physician Instruction/Supplemental Material Given: Cardiac catheterization instructions, procedure information, hospital information, hotel information. Instructed By Tika Thomas RN. In Department of CARDIOLOGY. documented in this encounter [facility] 06-27-2024 Telephone encounter Note Appts confirmed. Packet sent via [employer] [facility] Work Phone: 06-27-2024 Miscellaneous Notes Appts confirmed. Packet sent via [employer] documented in this encounter [facility] 06-26-2024 Note Addended by: VERNON TROY on: 06/26/2024 02:36 PM Modules accepted: Orders [facility] 06-26-2024 Miscellaneous Notes Addended by: VERNON TROY on: 06/26/2024 02:36 PM Modules accepted: Orders expedite 07/02- labs and Cath 07/03- Carotid US, PFT's TCI and consent with Dr. Montalvo. Dr. Montalvo met with Thuy Kim and his 06/24/2024 and it was determined patient needs aortic valve surgery. Called patient to get further pre-op testing surgery and scheduled. Tentative Date is 07/04/2024. Patient was informed of the need for further testing and dental clearance. Instructed patient last dose of blood thinners, OTC medications, and supplements is 5 days prior to surgery. Reviewed medications and patient denies taking GLP-1 or SGLT2 medications. Patient denies dysphagia. Vernon Troy ergonomist Surgery PreOp Checklist Patient Name: Thuy Kim OR Surgery Date: 07/04/2024 TCI Appt. Date: 07/03/2024 Primary Care Provider: Alverto Ceja DO Definition Comments Diabetes/Insulin Pump A1-c and Endo consult (need for pump pt) n/a Hypothyroid/thyroid nodules TSH/US of thyroid if new nodule ordered- A1-C Stroke (CVA) Neurology consult n/a Dysphagia, stricture w/no recent dilation, Norris's Esophagus GI consult patient denies any issues Von Willebrand/thrombocytopenia/ Blood... Hematology consult n/a Abnormal labs from outside Place any necessary consults n/a Cardiac Cath Correct birthday/include all images/moving if outside cath ordered Redo OHS/Robotic surgery/radiation to chest CT or CTA/if outside CT will need in-house CXR, Cardiac MRI done Mechanical valve Admit for Heparin/Lovenox bridge n/a Female <50 y/o HCG n/a Heparin allergy hx of HIT Vascular Medicine consult n/a Nickel/Metal allergy Dermatology consult n/a Breast implants/Robotic candidates Plastic Surgery consult n/a Urinary strictures Urology consult/Urology consult to OR n/a All stimulators/spinal stimulator Type of stimulator n/a PPM/AICD Device check n/a Valve/TAVR/TEVAR/Myectomy/ascendi ng aorta Dental clearance/Dental Consult at [facility] dentist to fax in form CABG surgery with previous CABG/varicose vein/vein stripping Leg vein mapping n/a LMT disease > 30% or Carotid Bruits Carotid ultrasound ordered Descending Aneurysm/TEVAR/TAA Pre-admit/hydration/spinal drain to be placed: IR/OR/Not Needed n/a Dialysis patient IHD day prior to OHS n/a CABG with no ECHO results Discussion w/surgeon results for dental clearance: preop/postop n/a Advanced Directives Instructions given to patient addressed FMLA Forward to AA addressed Test/Consult not needed Communicate in Epic or Access n/a Record of decreased PFTs, known lung disease Any pulmonary consult n/a Pulmonary embolectomy Needs US/Duplex BLE, VQ scan RHC, possible LHC, Pulmonary and/or Vascular consult n/a Abnormal CT All>1cm if further workup/consult needed n/a CC-Bio Repostitory Notification of packet and general knowledge given to pt n/a documented in this encounter [facility] 06-26-2024 Telephone encounter Note expedite 07/02- labs and Cath 07/03- Carotid US, PFT's TCI and consent with Dr. Montalvo. Dr. Montalvo met with Thuy Kim and his 06/24/2024 and it was determined patient needs aortic valve surgery. Called patient to get further pre-op testing surgery and scheduled. Tentative Date is 07/04/2024. Patient was informed of the need for further testing and dental clearance. Instructed patient last dose of blood thinners, OTC medications, and supplements is 5 days prior to surgery. Reviewed medications and patient denies taking GLP-1 or SGLT2 medications. Patient denies dysphagia. Vernon Troy RN Cardiac Surgery PreOp Checklist Patient Name: Thuy Kim OR Surgery Date: 07/04/2024 TCI Appt. Date: 07/03/2024 Primary Care Provider: Alverto Ceja DO Definition Comments Diabetes/Insulin Pump A1-c and Endo consult (need for pump pt) n/a Hypothyroid/thyroid nodules TSH/US of thyroid if new nodule ordered- A1-C Stroke (CVA) Neurology consult n/a Dysphagia, stricture w/no recent dilation, Norris's Esophagus GI consult patient denies any issues Von Willebrand/thrombocytopenia/ Blood... Hematology consult n/a Abnormal labs from outside Place any necessary consults n/a Cardiac Cath Correct birthday/include all images/moving if outside cath ordered Redo OHS/Robotic surgery/radiation to chest CT or CTA/if outside CT will need in-house CXR, Cardiac MRI done Mechanical valve Admit for Heparin/Lovenox bridge n/a Female <50 y/o HCG n/a Heparin allergy hx of HIT Vascular Medicine consult n/a Nickel/Metal allergy Dermatology consult n/a Breast implants/Robotic candidates Plastic Surgery consult n/a Urinary strictures Urology consult/Urology consult to OR n/a All stimulators/spinal stimulator Type of stimulator n/a PPM/AICD Device check n/a Valve/TAVR/TEVAR/Myectomy/ascendi ng aorta Dental clearance/Dental Consult at [facility] dentist to fax in form CABG surgery with previous CABG/varicose vein/vein stripping Leg vein mapping n/a LMT disease > 30% or Carotid Bruits Carotid ultrasound ordered Descending Aneurysm/TEVAR/TAA Pre-admit/hydration/spinal drain to be placed: IR/OR/Not Needed n/a Dialysis patient IHD day prior to OHS n/a CABG with no ECHO results Discussion w/surgeon results for dental clearance: preop/postop n/a Advanced Directives Instructions given to patient addressed FMLA Forward to AA addressed Test/Consult not needed Communicate in Epic or Access n/a Record of decreased PFTs, known lung disease Any pulmonary consult n/a Pulmonary embolectomy Needs US/Duplex BLE, VQ scan RHC, possible LHC, Pulmonary and/or Vascular consult n/a Abnormal CT All>1cm if further workup/consult needed n/a CC-Bio Repostitory Notification of packet and general knowledge given to pt n/a [facility] 06-24-2024 History of Present illness Narrative Radiology Service Progress Note DATE OF SERVICE: June 24, 2024 TIME: 11:54 AM PATIENT WEIGHT: 190LBS PATIENT IDENTITY VERIFICATION COMPLETED USING TWO (2) STANDARD IDENTIFIERS: Name and Date of confirmed by patient verbally and Name and Date of confirmed by identification band. FALL SCREENING: Has the patient had 2 falls in the last year or 1 fall with injury or currently using an Ambulatory Assistive Device (Walker, Cane, Wheelchair, Crutches, etc.)? No PATIENT GENDER DATA: Male ALLERGIES: Reviewed and unchanged CONTRAST ALLERGY: Yes STANDARD PREMEDICATION: Dexamethasone Dose 1 taken at 2200, Dose 2 at 0400, and Dose 3 at 1000 Benadryl 50mg 1000 ALTERNATIVE PREMEDICATION: N/A EXAM: CT -CONTRAST INDUCED NEPHROPATHY RISK FACTORS: Patient age > 60 years CREATININE: Creatinine Date Value Ref Range Status 05/30/2024 0.97 0.73 - 1.22 mg/dL Final 03/04/2023 0.87 0.73 - 1.22 mg/dL Final 02/21/2023 1.01 0.73 - 1.22 mg/dL Final Estimated Glomerular Filtration Rate Date Value Ref Range Status 05/30/2024 89 >=60 mL/min/1.73m Final Comment: Estimated Glomerular Filtration Rate (eGFR) is calculated using the 2020 CKD-EPI creatinine equation. This equation utilizes serum creatinine, sex, and age as parameters. The creatinine assay has traceable calibration to isotope dilution-mass spectrometry. Refer to KDIGO guidelines for clinical interpretation. In patients with unstable renal function, e.g. those with acute kidney injury, the eGFR may not accurately reflect actual GFR. eGFR- Date Value Ref Range Status 11/08/2021 >60 Final P.O.C.T. RESULTS: N/A June 24, 2024 TREATMENT: No Hydration needed. IV SITE: Ambulatory: A peripheral IV was started in the Right antecubital site with a Angio cath: 20 gauge. and A Saline lock was inserted per protocol IV SITE APPEARANCE: Clean,Dry and Intact SIGNATURE: Trina Stock RN PATIENT NAME: Thuy Kim DATE: June 24, 2024 TIME: 11:54 AM documented in this encounter [facility] 06-24-2024 Note [facility] 06-24-2024 Instructions Barbara Silvestre MD - 06/24/2024 10:05 AM EDT -Given your symptoms, we are concerned your valve may be more narrowed than your prior imaging suggests. The repeat echo and CT scan may help us look at this better. -We have added on an NT-pro BNP, which is a blood test that can help give us some additional information about the strain of the valve on your heart. This is not urgent and can just be completed whenever you are next scheduled to have blood work completed. -However, given the severity of your symptoms, reasonable to continue to meet with Dr. Montalvo to consider surgery. -Your aorta is a bit dilated as well, so this will likely be considered for repair at the same time. -Surgery would be the preferred method to fix your valve rather than a transcatheter approach (TAVR). This is because of the shape of your bicuspid valve, your young age, your current health, and your dilated aorta. Surgery would set you up for the most success and be more likely to hopefully help prevent you from needing surgery in the future. documented in this encounter [facility] 06-24-2024 Note [facility] 06-24-2024 History of Present illness Narrative Images from the original note were not included. [facility] [place] [facility] Department of Cardiovascular Medicine SECTION OF CARDIOVASCULAR IMAGING OUTPATIENT VISIT DATE June 24, 2024 OUTPATIENT VISIT TYPE NEW PRIMARY CARE PHYSICIAN: Alverto Ceja [address] [place] [address] REFERRING PHYSICIAN: Thomas Montalvo [id number] [facility] [id number] CHIEF COMPLAINT: Pre-op eval, bicuspid HISTORY OF PRESENT ILLNESS: Mr. Kim is a 59 year old male who presents today for pre-op eval for AVR due to in the setting of a bicuspid AV and aortic root dilation. He also has a history of Mariana's thyroiditis, migraines, and anxiety. He recently presented to his PCP reporting occasional palpitations. Repeat echo was obtained, which noted EF 60%, max aortic dimension 4.4cm (prior 4.2cm in 2021), and low flow, low gradient moderately severe (pk 29, mn 16, DVI 0.23, SHANAE 0.98 with SVI 31) with a moderately calcified valve. Previously in 2021, his pk was 22, mn 13, DVI 0.37, and SHANAE 1.53. Zio patch notable for predominantly sinus rhythm with 2 runs of SVT, the longest lasting 10.2s with max HR of 174 and associated with his symptoms. There were also frequent isolated ventricular ectopic events at 7.1%. Today he reports over the last couple of years he's noticed much more fatigue and dyspnea with exertion. This has worsened over the last year, but especially over the last couple of months. He works as a [employer] and typically is able to push through his fatigue, but now he can barely walk the dog 100 yards without feeling short of breath and fatigued. Occasional lightheadedness, not sure if always associated with activity. The heat he feels has been exacerbating this. He notes palpitations daily, and when these occur he feels quite dyspnea. He sometimes notes chest discomfort with tingling radiating to the right side of his face, and sometimes in his middle back. Middle back pain feels like a muscle spasm. Notices these chest and face symptoms associated with anxiety. He denies orthopnea, PND, LE edema. He feels his worst in the mornings. Medications include synthroid and amoxicillin for prophylaxis prior to dental appointments. He denies tobacco use, previously smoked for a few years in his 20s. Drinks socially perhaps once a week. He denies recreational drug use. He sticks to a gluten free diet due to gluten intolerance. PAST CARDIAC HISTORY: As above PAST MEDICAL HISTORY No date: Anxiety No date: Aortic root dilation (HCC) No date: Bicuspid aortic valve No date: Mariana's thyroiditis No date: Migraine-cluster headache syndrome No date: Moderate aortic stenosis No date: Palpitation PAST SURGICAL HISTORY No date: APPENDECTOMY Comment: age 11 -- after rupture No date: APPENDECTOMY HX 01/23/2023: COLONOSCOPY Comment: repeat in 10 years 03/06/2023: EGD W/O [facility] SPEC VARICIES INJ No date: KNEE SURGERY HX Comment: torn meniscus SOCIAL HISTORY Social History Tobacco Use Smoking status: Former Current packs/day: 0.00 Average packs/day: 1 pack/day for 5.0 years (5.0 ttl pk-yrs) Types: Cigarettes Start date: 1974 Quit date: 1979 Years since quittin.6 Smokeless tobacco: Never Vaping Use Vaping status: Never Used Substance Use Topics Alcohol use: Yes Alcohol/week: 14.0 standard drinks of alcohol Types: 14 Cans of Beer (12oz) per week Drug use: Not Currently FAMILY HISTORY Problem Relation Age of Onset Heart Failure Mother Emphysema Mother Heart Attack Father Coronary Artery Disease Father stent Diabetes Father Kidney Disease Father ALLERGIES: ALLERGIES Allergen Reactions Iv Contrast [Iodine] Other: See Comments Shaking, seizure like activity per pt Prednisone Mental Status Change Steroid psychosis MEDICATIONS: Amoxicillin 500 mg tablet Take 4 tablets by mouth as directed. Take 1 hour prior to dental procedure for prophylaxis levothyroxine (LEVOXYL) 75 mcg tablet Take 1 tablet by mouth once daily. Take on empty stomach. For Thyroid doxycycline (VIBRA-TABS) 100 mg tablet Take 1 tablet by mouth prn, at first sign of tick bite. REVIEW OF SYSTEMS: GENERAL: Negative for: Weight loss or gain, Fever or Chills, Weakness and Sleep difficulties. HEENT: Negative for: Headache, Impaired Vision, Glasses, Hearing Impairment, Ringing in Ears, Nosebleeds, Poor dental care, Bleeding Gums, Dentures NECK: Negative for: Swelling, Pain, Stiffness RESPIRATORY: Negative for: Cough, Blood in Sputum, Shortness of breath, Wheezing, Apnea GASTROINTESTINAL: Negative for: Trouble swallowing, Heartburn, Change in bowel habits, Blood in stool, Dark black stools MUSCULOSKELETAL: Negative for: Muscle or joint pain, Stiffness , Joint swelling NEUROLOGIC/PSYCHIATRIC: Negative for: Weakness, Paralysis, Numbness, Tingling, Tremor, Nervousness, Depressed mood, Memory loss SKIN: Negative for: Rashes, Itching HEMATOLOGICAL/LYMPHATIC: Negative for: Easy bruising , Easy bleeding ENDOCRINE: Negative for: Heat or cold intolerance, Excessive sweating, Frequent urination, Frequent thirst PHYSICAL EXAMINATION: BP 144/85 Pulse 95 Ht 182.9 cm (6') Wt 86.2 kg (190 lb) SpO2 100% BMI 25.77 kg/m General: Well appearing, in no acute distress. Skin: No clubbing, no cyanosis. Eyes: Extra ocular movements intact Oropharynx: Teeth in good repair. Neck: No jugular venous distention, carotids have a normal upstroke, no palpable thyromegaly. Lungs: Clear to auscultation bilaterally, no wheezing or rhonchi. Heart: Regular rhythm, PMI not displaced, S1, S2 normal, no S3, no S4, no heaves, no rub, systolic ejection murmur radiating to carotids Abdomen: Soft Extremities: No peripheral edema. Grade 2/4 distal pulses bilaterally. Neuro: Oriented to person, place and time, alert, cooperative, gait coordinated. CARDIOVASCULAR MEDICINE TESTING: Electrocardiogram: sinus, frequent PVCs Last ECHO Result Conclusion ECHO Collected: 06/24/2024 10:45 AM (Final result) Impression: CONCLUSIONS: - Exam indication: Limited for - Left ventricular systolic function is normal. EF = 60 5% (visual est.) Left ventricular diastolic function was not evaluated due to inconsistent or technically suboptimal data. - The right ventricle is normal in size. Right ventricular systolic function is normal. - The visualized aorta is dilated with a maximal dimension of 4.4 cm. - Bicuspid aortic valve. There is trace (trace - 1+) aortic valve regurgitation. There is moderate aortic valve stenosis caused by calcified valve and restricted opening. AV area is 1.43 cm (0.68 cm /m ) by continuity, VTI. The peak gradient is 27 mmHg, the mean gradient is 16 mmHg and the dimensionless valve index is 0.34. Prior peak/mean gradients 29/16 mmHg. - Exam was compared with the prior CC echocardiographic exam performed on 06/06/2024, similar findings. * * * Final * * * Cholesterol, Total (mg/dL) Date Value 05/30/2024 219 06/13/2022 216 11/08/2021 191 08/21/2020 213 HDL Cholesterol (mg/dL) Date Value 05/30/2024 68 06/13/2022 64 11/08/2021 51 08/21/2020 54 LDL Cholesterol (mg/dL) Date Value 05/30/2024 135 06/13/2022 138 11/08/2021 125 08/21/2020 132 Triglyceride (mg/dL) Date Value 05/30/2024 81 06/13/2022 71 11/08/2021 77 08/21/2020 137 Last EKG Result Conclusion ECG COMPLETE Collected: 06/24/2024 8:15 AM (Preliminary result) Impression: SINUS RHYTHM WITH FREQUENT PREMATURE VENTRICULAR COMPLEXES LOW VOLTAGE QRS, CONSIDER PULMONARY DISEASE, PERICARDIAL EFFUSION, OR NORMAL VARIANT BORDERLINE ECG CTA and 4D aortic valve: IMPRESSION: 1. Anatomic bicuspid aortic valve with severe leaflet thickening and calcification with a valve area of 1.6cm2 2. DILATED AORTIC ROOT: 4.1 x 3.3 cm measured [id number] STJ: 3.6 cm mid ASCENDING THORACIC AORTA: 4.3 cm No wall calcification 3. No definitive evidence of calcified atherosclerotic changes of the coronary arteries. However, the current study is not optimized for coronary assessment. I have personally reviewed the Electrocardiogram, Echocardiogram, and Cardiac CT Angiography. IMPRESSION: Mr. Kim is a 59 year old male with a history of bicuspid aortic valve and moderate mid ascending aortic dilation. His symptoms are concerning that his is more severe than his prior echo is suggesting, notably SVI was low. Valve looks significantly stenotic at the leaflet tips. We will repeat echo today and add 4D to CTA to further assess aortic valve opening Repeat echo suggests valve stenosis is moderately severe based on appearance and Doppler. He will meet with Dr Espinoza to discuss AVR + Aortic graft. Symptoms are suspicious for valve related. PLAN AND RECOMMENDATIONS: Surgical evaluation Still needs [facility] Routine post-op cardiology F/U if proceeds with surgery - with local verifier or return to this clinic Barbara Silvestre MD PGY6 Cardiovascular Medicine Fellow I personally interviewed, confirmed and edited the above information if obtained by others. Karolina Jonas MD, PhD CONTACT INFORMATION: Dr. Karolina Jonas MD PhD [facility] Staff Fountain Operator Section of Cardiovascular Imaging Department of Cardiovascular Medicine J1-5 Heart and Vascular [place] [facility] [address] [place] [address] [phone] documented in this encounter [facility] 06-19-2024 Telephone encounter Note Appts confirmed. Packet sent via [employer] [facility] Work Phone: 06-19-2024 Miscellaneous Notes Appts confirmed. Packet sent via [employer] documented in this encounter [facility] 06-14-2024 Telephone encounter Note Expedite: Patient requesting soonest availability Cards, CTA, ECHO and evaluation with Dr. Montalvo Called patient to inform them that Dr. Montalvo reviewed information and is recommending an evaluation. Patient has Iodine and prednisone allergy. Will call in Decadron 8 mg tablet by mouth 13 hours, 7 hours and [address] with contrast and 50 mg benedryl [address] hour prior to his CT with contrast. Patient accepted this and asked for soonest availability. Vernon Troy RN [facility] 06-14-2024 Miscellaneous Notes Expedite: Patient requesting soonest availability Cards, CTA, ECHO and evaluation with Dr. Montalvo Called patient to inform them that Dr. Montalvo reviewed information and is recommending an evaluation. Patient has Iodine and prednisone allergy. Will call in Decadron 8 mg tablet by mouth 13 hours, 7 hours and [address] with contrast and 50 mg benedryl 1 hour prior to his CT with contrast. Patient accepted this and asked for soonest availability. Vernon Troy RN Referral form completed awaiting review by Dr. Montalvo. Vernon Troy RN LOCAL PATIENT Referral from: Self Reason: AVR Tests [facility]: TTE 06/06/24 documented in this encounter [facility] 06-12-2024 Telephone encounter Note Referral form completed awaiting review by Dr. Montalvo. Vernon Troy RN [facility] 06-12-2024 Telephone encounter Note IN [facility] Work Phone: 06-12-2024 Miscellaneous Notes IN Please register insurance. Thank you! documented in this encounter [facility] 06-12-2024 Telephone encounter Note LOCAL PATIENT Referral from: Self Reason: AVR Tests [facility]: TTE 06/06/24 [facility] 06-12-2024 Telephone encounter Note Please register insurance. Thank you! [facility] 06-11-2024 Telephone encounter Note Patient already scheduled in [facility] Nuzhat Fairchild [facility] 06-11-2024 Miscellaneous Notes Patient already scheduled in [facility] Nuzhat Fairchild Noted, thank you. Rosa Henson APRN.LAUREL Patient transferred from clinical triage nurse for assistance with scheduling cardiology referral. Triage nurse reported that he was requesting to schedule with previously established verifier, Dr. Garcia at [facility]. Patient ended the phone prior to PSS being able to speak with the patient. PSS contacted patient and provided him with the phone number of the physician's office, per his request. Pt informed. Pt reports his pulse has been around 50. He is monitoring heart rate at home. Reports sx- very fatigued in evening, he gets winded easily and lightheaded. Consult given to schedulers to contact pt today to schedule appt with cardiology. Pt would like seen ANDER Benavidesally signed by Bozena Denny MA at 06/11/2024 3:51 PM EDT Consult placed. Rosa Henson APRN.TWIST PACKER Please put a referral in for cardiology and then we can notify pt and help him get apt scheduled. Rhonda Hancock LPN Please let patient know that his ECHO did show aortic stenosis. Aorta dilated at 4.4 cm. I see at his last appointment his pulse was 50. What has his pulse been at home, is he able to monitor? What are his symptoms? If he develops chest pain, SOB, dizziness, syncope to seek care in ED sooner. I would recommend scheduling with cardiology. Kath Thakur PA-C 06/11/2024 Patient's calls back to see the status of message below. Please review and advise, Lian Hernandez RN calling to request pt be called with results from ECHO today. They can see they are done. reports pt is not feeling well and pt feels he may need to see the verifier he has seen in the past and concern he may quentin to have surgery. asking for pt if this is needed to help get the process started. When pt calls in get permission to speak with and she will also need to be called because she books all his apts. Rhonda Hancock LPN documented in this encounter [facility] 06-11-2024 Telephone encounter Note Pt has been told that he is in need of an AVR. All testing has been performed at . He is requesting a surgical review. [facility] 06-11-2024 Miscellaneous Notes Pt has been told that he is in need of an AVR. All testing has been performed at . He is requesting a surgical review. documented in this encounter [facility] 06-11-2024 Telephone encounter Note Noted, thank you. Rosa Henson APRN.LAUREL [facility] 06-11-2024 Telephone encounter Note Patient transferred from clinical triage nurse for assistance with scheduling cardiology referral. Triage nurse reported that he was requesting to schedule with previously established verifier, [facility]. Patient ended the phone prior to PSS being able to speak with the patient. PSS contacted patient and provided him with the phone number of the physician's office, per his request. [facility] 06-11-2024 Telephone encounter Note Pt informed. Pt reports his pulse has been around 50. He is monitoring heart rate at home. Reports sx- very fatigued in evening, he gets winded easily and lightheaded. Consult given to schedulers to contact pt today to schedule appt with cardiology. Pt would like seen shira. Bozena Denny MA [facility] 06-11-2024 Telephone encounter Note Consult placed. Rosa Henson APRN.TWIST PACKER [facility] 06-11-2024 Telephone encounter Note Please put a referral in for cardiology and then we can notify pt and help him get apt scheduled. Rhonda Hancock LPN [facility] 06-11-2024 Telephone encounter Note Please let patient know that his ECHO did show aortic stenosis. Aorta dilated at 4.4 cm. I see at his last appointment his pulse was 50. What has his pulse been at home, is he able to monitor? What are his symptoms? If he develops chest pain, SOB, dizziness, syncope to seek care in ED sooner. I would recommend scheduling with cardiology. Kath Thakur PA-C 06/11/2024 T [facility] Work Phone: 06-11-2024 Telephone encounter Note Patient's calls back to see the status of message below. Please review and advise, Lian Hernandez RN [facility] 06-10-2024 Telephone encounter Note calling to request pt be called with results from ECHO today. They can see they are done. reports pt is not feeling well and pt feels he may need to see the verifier he has seen in the past and concern he may quentin to have surgery. asking for pt if this is needed to help get the process started. When pt calls in get permission to speak with and she will also need to be called because she books all his apts. Rhonda Hancock LPN [facility] 05-31-2024 Telephone encounter Note The 10-year ASCVD risk score (Sophy MINOR et al., 2019) is: 6.7% Values used to calculate the score: Age: 59 years Sex: Male Is Non- : No Diabetic: No Tobacco smoker: No Systolic Blood Pressure: 114 mmHg Is BP treated: No HDL Cholesterol: 68 mg/dL Total Cholesterol: 219 mg/dL [facility] Work Phone: 05-31-2024 Miscellaneous Notes The 10-year ASCVD risk score (Sophy MINOR, et al., 2019) is: 6.7% Values used to calculate the score: Age: 59 years Sex: Male Is Non- : No Diabetic: No Tobacco smoker: No Systolic Blood Pressure: 114 mmHg Is BP treated: No HDL Cholesterol: 68 mg/dL Total Cholesterol: 219 mg/dL documented in this encounter [facility] 05-29-2024 History of Present illness Narrative CC: Thuy Kim is a 59 year old male who presents to the office for physical HPI: Hx of aortic root dilation and bicuspid aortic valve and aortic stenosis. He does have intermittent LH feeling and palpitations and heart fluttering. Not daily. No chest pressure or pain or dyspnea or syncope symptoms. Last ECHO >1 year ago. He is gluten free and dairy free and tries to avoid sugars as well. PAST MEDICAL HISTORY Diagnosis Date Anxiety Aortic root dilation (HCC) Bicuspid aortic valve Mariana's thyroiditis Migraine-cluster headache syndrome Moderate aortic stenosis Palpitation PAST SURGICAL HISTORY Procedure Laterality Date APPENDECTOMY age 11 -- after rupture APPENDECTOMY HX COLONOSCOPY 01/23/2023 repeat in 10 years EGD W/O BRSH SPEC VARICIES INJ 03/06/2023 KNEE SURGERY HX torn meniscus Social History: Social History Tobacco Use Smoking status: Former Packs/day: 1.00 Years: 5.00 Additional pack years: 0.00 Total pack years: 5.00 Types: Cigarettes Quit date: 1979 Years since quittin.5 Smokeless tobacco: Never Vaping Use Vaping Use: Never used Substance Use Topics Alcohol use: Yes Alcohol/week: 14.0 standard drinks of alcohol Types: 14 Cans of Beer (12oz) per week Drug use: Not Currently FAMILY HISTORY Problem Relation Age of Onset Heart Failure Mother Emphysema Mother Heart Attack Father Coronary Artery Disease Father stent Diabetes Father Kidney Disease Father Current Outpatient prescriptions: Amoxicillin 500 mg tablet Take 4 tablets by mouth as directed. Take 1 hour prior to dental procedure for prophylaxis levothyroxine (LEVOXYL) 75 mcg tablet Take 1 tablet by mouth once daily. Take on empty stomach. For Thyroid doxycycline (VIBRA-TABS) 100 mg tablet Take 1 tablet by mouth prn, at first sign of tick bite. Allergies: ALLERGIES Allergen Reactions Iv Contrast [Iodine] Other: See Comments Shaking, seizure like activity per pt Prednisone Mental Status Change Steroid psychosis ROS: See HPI PE: 05/29/ 0745 BP: 114/56 BP Site: Left Arm BP Position: Sitting BP Cuff Size: Large Adult Pulse: (!) 50 Resp: 12 SpO2: 99% Weight: 87.5 kg (193 lb) Height: 184 cm (6' 0.44) Gen: A&O, NAD, non-toxic appearing, Pleasant, cooperative HEENT: NT/AC, PERRLA, EOMs intact b/l, nares clear and patent b/l, pharynx without erythema, exudate or lesions. Uvula midline. EACs without erythema or debris. TMs pearly nunez with intact landmarks b/l. Neck: supple, No cervical LAD, no thyromegaly, no carotid bruits CV: RRR, normal S1 and S2, 2/6 HSM RUSB murmurs, no gallops, no rubs, Pulses 2+ and symmetric in UE and LE b/l Lungs: normal respiratory effort, CTA b/l, no wheezing or rhonchi or rales Abd: soft, NT, ND, +BS, no hepatosplenomegaly MS: FROM all 4 extremities Neuro: CN II-XII intact b/l, strength 5/5 b/l UE and LE, DTRs 2/4 UE and LE, sensation intact. Skin: warm, dry, intact, No rashes or lesions on exposed skin. No edema, normal pulses ASSESSMENT/PLAN: 1. Well adult exam - ICD9: V70.0, ICD10: Z00.00 (primary diagnosis) - Counseled on healthy diet and regular exercise - COMPREHENSIVE METABOLIC PANEL - COMPLETE BLOOD COUNT AND DIFFERENTIAL - THYROID STIMULATING HORMONE - T4 FREE/FREE THYROXINE - T3, FREE - LIPID PANEL BASIC - HEMOGLOBIN A1C - VITAMIN D 25 HYDROXY - VITAMIN B12 2. Palpitations - ICD9: 785.1, ICD10: R00.2 ECHO ordered Need for environmental monitoring technician - ECHO - PERFLUTREN LIPID MICROSPHERES 1.1 MG/ML INJECTION IN NS 10 ML - SODIUM CHLORIDE 0.9 % (FLUSH) INJECTION SYRINGE - OUTSIDE VENDOR CARDIAC OUTPATIENT EXTENDED RHYTHM RECORDING (WITHOUT TELEMETRY) - ECG COMPLETE 3. Bradycardia - ICD9: 427.89, ICD10: R00.1 ECHO ordered Need for environmental monitoring technician - ECHO - PERFLUTREN LIPID MICROSPHERES 1.1 MG/ML INJECTION IN NS 10 ML - SODIUM CHLORIDE 0.9 % (FLUSH) INJECTION SYRINGE - OUTSIDE VENDOR CARDIAC OUTPATIENT EXTENDED RHYTHM RECORDING (WITHOUT TELEMETRY) - ECG COMPLETE 4. Aortic valve disorder - ICD9: 424.1, ICD10: I35.9 ECHO ordered Need for environmental monitoring technician - ECHO - PERFLUTREN LIPID MICROSPHERES 1.1 MG/ML INJECTION IN NS 10 ML - SODIUM CHLORIDE 0.9 % (FLUSH) INJECTION SYRINGE - OUTSIDE VENDOR CARDIAC OUTPATIENT EXTENDED RHYTHM RECORDING (WITHOUT TELEMETRY) - ECG COMPLETE 5. Mariana's thyroiditis - ICD9: 245.2, ICD10: E06.3 stable 6. Gluten intolerance - ICD9: 579.0, ICD10: K90.41 stable 7. Lactose intolerance - ICD9: 271.3, ICD10: E73.9 stable Alverto Ceja DO To ER if develops chest pain, shortness of breath, or severe worsening of symptoms. Discussed risks, benefits, alternatives, and potential side effects of medications. Patient expressed understanding and agreed with the plan. Alverto Ceja DO [address] [place] [address] documented in this encounter [facility] 05-29-2024 Nurse Note Zio information faxed for Mailing. [facility] 05-29-2024 Nurse Note [employer] information faxed for Mailing. documented in this encounter [facility] 02-23-2024 Miscellaneous Notes Patient has been identified by name and date of : Yes Patient phones for refill(s): Requested Prescriptions Pending Prescriptions Disp Refills levothyroxine (LEVOXYL) 75 mcg tablet 90 tablet 1 Sig: Take 1 tablet by mouth once daily. Take on empty stomach. For Thyroid Date of last office visit in primary care: 07/26/2023 Date of next office visit in primary care: 05/29/2024 Please advise. Thank you. [address] documented in this encounter [facility] 08-21-2023 Miscellaneous Notes Patient phones requesting refills as follows: Requested Prescriptions Pending Prescriptions Disp Refills levothyroxine (LEVOXYL) 75 mcg tablet 90 tablet 1 Sig: Take 1 tablet by mouth once daily. Take on empty stomach. For Thyroid JEANNETTE-07/26/13 Labs-07/19/23 NOV-none Please review and advise. Renata Calderon LPN documented in this encounter [facility] 07-26-2023 History of Present illness Narrative CC: Thuy Kim is a 58 year old male who presents to the office for follow up HPI: Patient was seen in office by Dari Payton CNP on 11/04/22 As below Odd symptoms started several years ago with severe pain in the bottom of my feet to the point where I couldn t walk.I assumed it was plantar fasciitis. later I started getting numbness in my lips. And for the last couple of years I ve been getting twitching in my muscles, particularly my calves, the numbness that was in my lips is protruding to the side of my face slightly into my right cheekbone And most recently I ve been getting what I would call, humming or buzzing in my head off and on right before I wake up over the last several months,and more recently it s a slight vibration behind my eyes, and the only thing I could find that resembles it is night tremors. Along with that is the constant heart palpitations every time I eat the wrong thing or over work myself, which to me isn t over working and a constant pain in my neck, and back that s exaggerated when I work out and usually takes a couple of days to recover from a mild workout .I m not sure if these are symptoms from Mariana s or whether there s a possibility it could be Lyme disease. 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 Also, there s another girl that works on the farm who is currently being treated and over the last two years for Lyme disease, which has me concerned. I hope there s some thing we can do to make sense of this, thanks. I have been trying vitamins you suggested for the tingling in my legs, nothing has helped. Is there testing we can do for Lyme? Main concern is for lyme disease. Works on [employer]. 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 Reports on new Magnesium supplement d/t leg cramping. Mariana disease has been stable but wondering if this is playing a role as well. All symptoms are mild and not very bothersome but pt getting frustrated with no answers to a cause. Seen at last OFFICE VISIT on 12/16/2022 as below His previous testing for lyme and other labs were all stable/normal. He continues to have intermittent feeling of palpitations, mostly rare though now. Feels he is getting used to the symptoms and likely also triggered when anxious or not sure what his symptoms are being triggered by. Now that he is mostly sugar free and gluten free and dairy free and eating mostly certain vegetables and meats, he is feeling better. Still some muscle weakness and fatigue symptoms and aching. Is very physically active. Also has lost weight, unintentionally but has made drastic dietary changes over the last few months as above. At follow up 03/03/23 He states that he started losing weight originally when he was started on thyroid medication/hormone and he assumed it was because of this new hormone as well as changing his diet drastically to exclude a lot of unhealthy simple carbohydrates and sugars in his diet. He felt that his body reached a new threshold/plateau at 185 lbs and was holding steady at this until he went through a colonoscopy prep and liquid diet and colonoscopy. At that time he had some post operative constipation symptoms. He was also following a strict gluten free and dairy free . He has had to take several treatments of dulcolax to help the constipation. He is now trying to constantly change his diet to see what he will feel best eating and doesn't know if this is contributing to his current symptoms- he is having a high appetite, feels he can't be satisfied, but continues to be fatigued, lethargic feeling and also feels like I am wasting away and losing muscle mass, not as strong as I used to be. He feels that when he eats my metabolism kicks in immediately. Doesn't have the energy either. No blood in stool. Colonoscopy was overall normal. Has a family history of stomach cancer in his uncle. This is concerning to him. He hasn't had an upper GI or EGD or capsule endoscopy Currently He is feeling much better. He was seen and assessed further by general surgeon for EGD and colonoscopy. And then referred to Dr. Gabriel/Gastroenterology and had capsule endoscopy testing. He is feeling much better now with diet changes and maintaining strict gluten free diet and trying to eat foods that promote gut health for him as well. No new bowel concerns. No further abodminal bloating or nausea or decreased appetite. Hypothyroidism, taking levothyroxine 75 mcg 5 days a week now and 39.5 mg (1/2 tablet) 2 days a week. Feels this dose recently changed is helping his symptoms Still occasional palpitations, mostly related to eating too much sugar or a food trigger of some kind. PAST MEDICAL HISTORY Diagnosis Date Anxiety Aortic root dilation (HCC) Bicuspid aortic valve Mariana's thyroiditis Migraine-cluster headache syndrome Moderate aortic stenosis Palpitation PAST SURGICAL HISTORY Procedure Laterality Date APPENDECTOMY age 11 -- after rupture APPENDECTOMY HX COLONOSCOPY 01/23/2023 repeat in 10 years EGD W/O BRSH SPEC VARICIES INJ 03/06/2023 KNEE SURGERY HX torn meniscus Current Outpatient Medications Medication Sig levothyroxine (LEVOXYL) 75 mcg tablet Take 1 tablet by mouth once daily. Take on empty stomach. For Thyroid Current Facility-Administered Medications Medication Dose Route Frequency perflutren lipid microspheres 1.3 mL in NaCl (PF) 0.9% 10 mL injection (DEFINITY) INTRAVENOUS DIRECTED PRN sodium chloride 0.9 % (flush) 10 mL (BD POSIFLUSH) 10 mL INTRAVENOUS DIRECTED PRN ALLERGIES Allergen Reactions Iv Contrast [Iodine] Other: See Comments Shaking, seizure like activity per pt Prednisone Mental Status Change Steroid psychosis Social History Tobacco Use Smoking status: Former Packs/day: 1.00 Years: 5.00 Additional pack years: 0.00 Total pack years: 5.00 Types: Cigarettes Quit date: 1979 Years since quittin.7 Smokeless tobacco: Never Vaping Use Vaping Use: Never used Substance Use Topics Alcohol use: Yes Alcohol/week: 35.0 standard drinks of alcohol Types: 14 Cans of Beer (12oz) per week Drug use: Not Currently ROS: See HPI PE: BP 120/70 Pulse 64 Temp (Src) 97.3 (Left Tympanic) Resp 16 Wt 196 lb (88.9kg) Gen: A&OX3, NAD, non-toxic appearing HEENT: PERRLA, EOMs intact b/l, nares without drainage, pharynx without erythema, exudate, lesions, or drainage. Uvula midline. Neck: No LAD, no thyromegaly, no meningismus. CV: RRR, 3/6 HSM RUSB soft blowing murmur Lungs: CTA b/l, no wheezing Skin: No rashes, lesions, or wounds on exposed skin. Abd: soft, NT, ND, normal BS, no masses No edema, normal peripheral pulses ASSESSMENT/PLAN: 1. Mariana's thyroiditis - ICD9: 245.2, ICD10: E06.3 (primary diagnosis) Recheck labs as ordered, continue same dose of levothyroxine medication - TSH BLD - T4 FREE/FREE THYROX - T3 FREE BLD - THYROID PEROXIDASE ANTIBODY BLOOD - THYROGLOBULIN AB - C-REACTIVE PROTEIN (CRP) 2. Muscle weakness of extremity - ICD9: 728.87, ICD10: M62.81 Much improved with gluten free diet. 3. Fatigue, unspecified type - ICD9: 780.79, ICD10: R53.83 Much improved with gluten free diet. 4. Celiac disease - ICD9: 579.0, ICD10: K90.0 Much improved with gluten free diet. Alverto Ceja DO Return if no improvement. Follow up with Alverto Ceja DO. To ER if develops chest pain, shortness of breath Discussed risks, benefits, alternatives, and potential side effects of medications. Patient/Guardian expressed understanding and agreed with the plan. See patient instructions. Alverto Ceja DO [address] [place] [address] documented in this encounter [facility] 04-11-2023 History of Present illness Narrative Radiology Service Progress Note DATE OF SERVICE: April 11, 2023 TIME: 2:52 PM PATIENT IDENTITY VERIFICATION COMPLETED USING TWO (2) STANDARD IDENTIFIERS: Name and Date of confirmed by patient verbally. FALL SCREENING: Has the patient had 2 falls in the last year or 1 fall with injury or currently using an Ambulatory Assistive Device (Walker, Cane, Wheelchair, Crutches, etc.)? No PATIENT GENDER DATA: Male PATIENT RELEVANT IMPLANT DATA REVIEWED: Yes ALLERGIES: Reviewed and unchanged CONTRAST ALLERGY: NO. EXAM: MRI - CONTRAST TYPE: GROUP II PERIPHERAL IV DATA: Ambulatory: A peripheral IV was started in the Left antecubital site with a Angio cath: 22 gauge. RADIOLOGY DEPARTMENT: MR; Exam(s) Completed: Head: Routine Brain SIGNATURE: RT Luther(Nora) PATIENT NAME: Thuy Kim DATE: April 11, 2023 TIME: 2:52 PM documented in this encounter [facility] 03-13-2023 History of Present illness Narrative In lieu of an in-person visit due to COVID-19 concerns, a distance health visit was performed on the patient. Patient is aware that I am not fully able to assess symptoms and do a full physical examination including vital signs assessment at this time. Patient consents to this encounter. FOLLOW UP VISIT - ENDOSCOPY NAME: Thuy Kim [facility] NO.: [id number] DATE OF SERVICE: 03/13/2023 : 1965 REFERRING PHYSICIAN: Alverto Ceja, Thuy is a patient I am following with Dr. Ko for dysphagia. Dr. Ko performed upper endoscopy on 03/06/23. The patient was found to have gastritis and duodenitis. Pathology demonstrated: FINAL DIAGNOSIS A. Duodenum, biopsy: - Duodenal mucosa with no significant diagnostic alteration. - No evidence of celiac disease or duodenitis. B. Gastric antrum, biopsy: - Oxyntic mucosa with no significant diagnostic alteration. - No morphologic evidence of Helicobacter pylori organisms. C, D. Esophagus, distal and mid, biopsies: - Squamous mucosa with no significant diagnostic alteration. - No evidence of esophagitis or eosinophilia. The patient notes no new complaints since the procedure. Assessment IMPRESSION: normal appearing esophagus. Appearance of mild gastritis and duodenitis with normal biopsies. No signs of celiac on pathology PLAN: The operative findings and pathology report were reviewed with the patient, and the patient has had the opportunity to ask questions and have questions answered. Recommend follow up with GI for further evaluation and capsule endoscopy d/t history of weight loss. Would also recommend ENT d/t history of hoarseness, pain with swallowing Patient verbalized understanding of all above and agreed with the plan Diagnoses: (K29.90) Gastritis and duodenitis (primary encounter diagnosis) (R13.10) Dysphagia, unspecified type I spent a total of 24 minutes on the date of the service which included preparing to see the patient, [id number] patient care, completing clinical documentation, obtaining and/or reviewing separately obtained history, counseling and educating the patient/family/caregiver, communicating with other HCPs (not separately reported), independently interpreting results (not separately reported), and communicating results to the patient/family/caregiver. Bernarda Bernard PA-C documented in this encounter [facility] 03-06-2023 Nurse Note Patient arrived laying on left side. Patient does not appear to be in any pain at this time. Abdomen appears to be nondistended and soft to palpation. Patient encouraged to belch and pass gas as needed. documented in this encounter [facility] 03-06-2023 History and physical note CC: Thuy Kim is a 57 year old male who presents to the office for follow up. HPI: Patient was seen in office by Dari Payton CNP on 11/04/22 As below Odd symptoms started several years ago with severe pain in the bottom of my feet to the point where I couldn t walk.I assumed it was plantar fasciitis. later I started getting numbness in my lips. And for the last couple of years I ve been getting twitching in my muscles, particularly my calves, the numbness that was in my lips is protruding to the side of my face slightly into my right cheekbone And most recently I ve been getting what I would call, humming or buzzing in my head off and on right before I wake up over the last several months,and more recently it s a slight vibration behind my eyes, and the only thing I could find that resembles it is night tremors. Along with that is the constant heart palpitations every time I eat the wrong thing or over work myself, which to me isn t over working and a constant pain in my neck, and back that s exaggerated when I work out and usually takes a couple of days to recover from a mild workout .I m not sure if these are symptoms from Mariana s or whether there s a possibility it could be Lyme disease. 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 Also, there s another girl that works on the farm who is currently being treated and over the last two years for Lyme disease, which has me concerned. I hope there s some thing we can do to make sense of this, thanks. I have been trying vitamins you suggested for the tingling in my legs, nothing has helped. Is there testing we can do for Lyme? Main concern is for lyme disease. Works on [employer]. 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 Reports on new Magnesium supplement d/t leg cramping. Mariana disease has been stable but wondering if this is playing a role as well. All symptoms are mild and not very bothersome but pt getting frustrated with no answers to a cause. Seen at last OFFICE VISIT on 12/16/2022 as below His previous testing for lyme and other labs were all stable/normal. He continues to have intermittent feeling of palpitations, mostly rare though now. Feels he is getting used to the symptoms and likely also triggered when anxious or not sure what his symptoms are being triggered by. Now that he is mostly sugar free and gluten free and dairy free and eating mostly certain vegetables and meats, he is feeling better. Still some muscle weakness and fatigue symptoms and aching. Is very physically active. Also has lost weight, unintentionally but has made drastic dietary changes over the last few months as above. Currently He states that he started losing weight originally when he was started on thyroid medication/hormone and he assumed it was because of this new hormone as well as changing his diet drastically to exclude a lot of unhealthy simple carbohydrates and sugars in his diet. He felt that his body reached a new threshold/plateau at 185 lbs and was holding steady at this until he went through a colonoscopy prep and liquid diet and colonoscopy. At that time he had some post operative constipation symptoms. He was also following a strict gluten free and dairy free . He has had to take several treatments of dulcolax to help the constipation. He is now trying to constantly change his diet to see what he will feel best eating and doesn't know if this is contributing to his current symptoms- he is having a high appetite, feels he can't be satisfied, but continues to be fatigued, lethargic feeling and also feels like I am wasting away and losing muscle mass, not as strong as I used to be. He feels that when he eats my metabolism kicks in immediately. Doesn't have the energy either. No blood in stool. Colonoscopy was overall normal. Has a family history of stomach cancer in his uncle. This is concerning to him. He hasn't had an upper GI or EGD or capsule endoscopy PAST MEDICAL HISTORY PAST MEDICAL HISTORY Diagnosis Date Anxiety Aortic root dilation (HCC) Bicuspid aortic valve Mariana's thyroiditis Migraine-cluster headache syndrome Moderate aortic stenosis Palpitation PAST SURGICAL HISTORY PAST SURGICAL HISTORY Procedure Laterality Date APPENDECTOMY age 11 -- after rupture APPENDECTOMY HX KNEE SURGERY HX torn meniscus Social History: SOCIAL HISTORY Social History Tobacco Use Smoking status: Former Packs/day: 1.00 Years: 5.00 Pack years: 5.00 Types: Cigarettes Quit date: 1979 Years since quittin.3 Smokeless tobacco: Never Vaping Use Vaping Use: Never used Substance Use Topics Alcohol use: Yes Alcohol/week: 35.0 standard drinks Types: 14 Cans of Beer (12oz) per week Drug use: Not Currently FAMILY HISTORY FAMILY HISTORY Problem Relation Age of Onset Heart Failure Mother Emphysema Mother Heart Attack Father Coronary Artery Disease Father stent Diabetes Father Kidney Disease Father Current Outpatient prescriptions: CURRENT MEDICATIONS levothyroxine (LEVOXYL) 75 mcg tablet^Take 1 tablet by mouth once daily. Take on empty stomach. For Thyroid^Disp: 90 tablet^Rfl: 1 Miscellaneous Medical Supply (BLOOD PRESSURE CUFF)^1 Each once daily.^Disp: 1 Each^Rfl: 0 Allergies: ALLERGIES ALLERGIES Allergen Reactions Iv Contrast [Iodine] Other: See Comments Shaking, seizure like activity per pt Prednisone Mental Status Change Steroid psychosis ROS: See HPI PE: Vitals 02/21/23 1532 BP: 110/80 Pulse: 60 Resp: 16 Temp: 36.1 C (97 F) TempSrc: Right Tympanic Weight: 82.6 kg (182 lb) Gen: A&O, NAD, non-toxic appearing, Pleasant, fatigued appearing, cooperative HEENT: NT/AC, PERRLA, EOMs intact b/l, nares clear and patent b/l, pharynx without erythema, exudate or lesions. Uvula midline. EACs without erythema or debris. TMs pearly nunez with intact landmarks b/l. Neck: supple, No cervical LAD, no thyromegaly, no carotid bruits CV: RRR, normal S1 and S2, no murmurs, no gallops, no rubs, Pulses 2+ and symmetric in UE and LE b/l Lungs: normal respiratory effort, CTA b/l, no wheezing or rhonchi or rales Abd: soft, NT, ND, +BS, no hepatosplenomegaly MS: FROM all 4 extremities Neuro: CN II-XII intact b/l, strength 5/5 b/l UE and LE, DTRs 2/4 UE and LE, sensation intact. Thin, mild muscle loss temporal and thigh and upper arms No edema Skin: warm, dry, intact, No rashes or lesions on exposed skin. ASSESSMENT/PLAN: 1. Muscle weakness of extremity - ICD9: 728.87, ICD10: M62.81 (primary diagnosis) - labs as ordered, unsure if just related to weight loss, other labs have been stable. Need referral to nutrition therapy for opinion as well as needs for capsule endoscopy and consideration of EGD as well. - CBC + DIFF - COMP METABOLIC PANEL - CK CREATINE KINASE - ALDOLASE BLD - LD LACTATE DEHYDRO - URIC ACID BLOOD - CONSULT TO NUTRITION THERAPY 2. Myalgia - ICD9: 729.1, ICD10: M79.10 - labs as ordered, unsure if just related to weight loss, other labs have been stable. Need referral to nutrition therapy for opinion as well as needs for capsule endoscopy and consideration of EGD as well. - CBC + DIFF - COMP METABOLIC PANEL - CK CREATINE KINASE - ALDOLASE BLD - LD LACTATE DEHYDRO - URIC ACID BLOOD - CONSULT TO NUTRITION THERAPY 3. Generalized abdominal pain - ICD9: 789.07, ICD10: R10.84 - labs as ordered, unsure if just related to weight loss, other labs have been stable. Need referral to nutrition therapy for opinion as well as needs for capsule endoscopy and consideration of EGD as well. - CAPSULE ENDOSCOPY SMALL BOWEL - PREALBUMIN BLD - TSH BLD - T4 FREE/FREE THYROX - T3 FREE BLD - URIC ACID BLOOD - CONSULT TO NUTRITION THERAPY 4. Fatigue, unspecified type - ICD9: 780.79, ICD10: R53.83 - labs as ordered, unsure if just related to weight loss, other labs have been stable. Need referral to nutrition therapy for opinion as well as needs for capsule endoscopy and consideration of EGD as well. - PREALBUMIN BLD - TSH BLD - T4 FREE/FREE THYROX - T3 FREE BLD - URIC ACID BLOOD - CONSULT TO NUTRITION THERAPY 5. Acute constipation - ICD9: 564.00, ICD10: K59.00 - labs as ordered, unsure if just related to weight loss, other labs have been stable. Need referral to nutrition therapy for opinion as well as needs for capsule endoscopy and consideration of EGD as well. - CAPSULE ENDOSCOPY SMALL BOWEL 6. Unintentional weight change - ICD9: 780.99, ICD10: R68.89 - labs as ordered, unsure if just related to weight loss, other labs have been stable. Need referral to nutrition therapy for opinion as well as needs for capsule endoscopy and consideration of EGD as well. - CAPSULE ENDOSCOPY SMALL BOWEL - CONSULT TO NUTRITION THERAPY 7. Gluten intolerance - ICD9: 579.0, ICD10: K90.41 - labs as ordered, unsure if just related to weight loss, other labs have been stable. Need referral to nutrition therapy for opinion as well as needs for capsule endoscopy and consideration of EGD as well. - CONSULT TO NUTRITION THERAPY 8. Lactose intolerance - ICD9: 271.3, ICD10: E73.9 - labs as ordered, unsure if just related to weight loss, other labs have been stable. Need referral to nutrition therapy for opinion as well as needs for capsule endoscopy and consideration of EGD as well. - CONSULT TO NUTRITION THERAPY Alverto Ceja DO UPDATED HISTORY AND PHYSICAL EXAMINATION SERVICE DATE: 03/06/2023 SERVICE TIME: 10:12 AM PHYSICAL EXAM MUST BE COMPLETED ON ADMISSION The History and Physical (completed in the past 30 days) has been reviewed and the patient has been examined. The contents accurately reflect the patient's condition with the following additions or revisions since the H&P was completed. Examination indicates no changes. This H&P can be found in the attached. SIGNATURE: Niranjan Ko III, MD PATIENT NAME: Thuy Kim DATE: March 06, 2023 TIME: 10:12 AM documented in this encounter [facility] 02-27-2023 Miscellaneous Notes Patient called in concerned that he was not able to get an appointment for over 2 weeks. He would like to be seen sooner. He has had a 60 pound weight loss over the last year and was just started on a 2700 calorie diet plan as of Monday. Please contact patient to get scheduled. Please help him set up appt with Dr. Ko whom he has seen in the past. He is need of an EGD to evaluate his symptoms further Thanks Alverto Ceja DO documented in this encounter [facility] 02-23-2023 Miscellaneous Notes PT is going to [facility]. Addie PSS This procedure is only done at [facility], waiting for Malissa to give answer if PT needs to be established with GI and if our general surgery dept can see him for the consult. Addie PSS Please check with [facility] to see if this can be performed as an outpatient procedure at [place] or [place] without Gastroenterology referral? If so, then schedule appt. Patient aware Alverto Ceja DO [facility], reports [facility] received a referral for capsule endoscopy. Reports this is not an outpatient test. Reports patient has to be established with them first. They will need referral for GI to get patient established, referral for capsule endoscopy, and most recent ov notes (have not been signed yet) faxed to # [phone]. Please phone Carolann with any questions. documented in this encounter [facility] 02-21-2023 History of Present illness Narrative CC: Thuy Kim is a 57 year old male who presents to the office for follow up. HPI: Patient was seen in office by Dari Payton CNP on 11/04/22 As below Odd symptoms started several years ago with severe pain in the bottom of my feet to the point where I couldn t walk.I assumed it was plantar fasciitis. later I started getting numbness in my lips. And for the last couple of years I ve been getting twitching in my muscles, particularly my calves, the numbness that was in my lips is protruding to the side of my face slightly into my right cheekbone And most recently I ve been getting what I would call, humming or buzzing in my head off and on right before I wake up over the last several months,and more recently it s a slight vibration behind my eyes, and the only thing I could find that resembles it is night tremors. Along with that is the constant heart palpitations every time I eat the wrong thing or over work myself, which to me isn t over working and a constant pain in my neck, and back that s exaggerated when I work out and usually takes a couple of days to recover from a mild workout .I m not sure if these are symptoms from Mariana s or whether there s a possibility it could be Lyme disease. 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 Also, there s another girl that works on the farm who is currently being treated and over the last two years for Lyme disease, which has me concerned. I hope there s some thing we can do to make sense of this, thanks. I have been trying vitamins you suggested for the tingling in my legs, nothing has helped. Is there testing we can do for Lyme? Main concern is for lyme disease. 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 Reports on new Magnesium supplement d/t leg cramping. Mariana disease has been stable but wondering if this is playing a role as well. All symptoms are mild and not very bothersome but pt getting frustrated with no answers to a cause. Seen at last OFFICE VISIT on 12/16/2022 as below His previous testing for lyme and other labs were all stable/normal. He continues to have intermittent feeling of palpitations, mostly rare though now. Feels he is getting used to the symptoms and likely also triggered when anxious or not sure what his symptoms are being triggered by. Now that he is mostly sugar free and gluten free and dairy free and eating mostly certain vegetables and meats, he is feeling better. Still some muscle weakness and fatigue symptoms and aching. Is very physically active. Also has lost weight, unintentionally but has made drastic dietary changes over the last few months as above. Currently He states that he started losing weight originally when he was started on thyroid medication/hormone and he assumed it was because of this new hormone as well as changing his diet drastically to exclude a lot of unhealthy simple carbohydrates and sugars in his diet. He felt that his body reached a new threshold/plateau at 185 lbs and was holding steady at this until he went through a colonoscopy prep and liquid diet and colonoscopy. At that time he had some post operative constipation symptoms. He was also following a strict gluten free and dairy free . He has had to take several treatments of dulcolax to help the constipation. He is now trying to constantly change his diet to see what he will feel best eating and doesn't know if this is contributing to his current symptoms- he is having a high appetite, feels he can't be satisfied, but continues to be fatigued, lethargic feeling and also feels like I am wasting away and losing muscle mass, not as strong as I used to be. He feels that when he eats my metabolism kicks in immediately. Doesn't have the energy either. No blood in stool. Colonoscopy was overall normal. Has a family history of stomach cancer in his uncle. This is concerning to him. He hasn't had an upper GI or EGD or capsule endoscopy PAST MEDICAL HISTORY Diagnosis Date Anxiety Aortic root dilation (HCC) Bicuspid aortic valve Mariana's thyroiditis Migraine-cluster headache syndrome Moderate aortic stenosis Palpitation PAST SURGICAL HISTORY Procedure Laterality Date APPENDECTOMY age 11 -- after rupture APPENDECTOMY HX KNEE SURGERY HX torn meniscus Social History: Social History Tobacco Use Smoking status: Former Packs/day: 1.00 Years: 5.00 Pack years: 5.00 Types: Cigarettes Quit date: 1979 Years since quittin.3 Smokeless tobacco: Never Vaping Use Vaping Use: Never used Substance Use Topics Alcohol use: Yes Alcohol/week: 35.0 standard drinks Types: 14 Cans of Beer (12oz) per week Drug use: Not Currently FAMILY HISTORY Problem Relation Age of Onset Heart Failure Mother Emphysema Mother Heart Attack Father Coronary Artery Disease Father stent Diabetes Father Kidney Disease Father Current Outpatient prescriptions: levothyroxine (LEVOXYL) 75 mcg tablet^Take 1 tablet by mouth once daily. Take on empty stomach. For Thyroid^Disp: 90 tablet^Rfl: 1 Miscellaneous Medical Supply (BLOOD PRESSURE CUFF)^1 Each once daily.^Disp: 1 Each^Rfl: 0 Allergies: ALLERGIES Allergen Reactions Iv Contrast [Iodine] Other: See Comments Shaking, seizure like activity per pt Prednisone Mental Status Change Steroid psychosis ROS: See HPI PE: 02/21/23 1532 BP: 110/80 Pulse: 60 Resp: 16 Temp: 36.1 C (97 F) TempSrc: Right Tympanic Weight: 82.6 kg (182 lb) Gen: A&O, NAD, non-toxic appearing, Pleasant, fatigued appearing, cooperative HEENT: NT/AC, PERRLA, EOMs intact b/l, nares clear and patent b/l, pharynx without erythema, exudate or lesions. Uvula midline. EACs without erythema or debris. TMs pearly nunez with intact landmarks b/l. Neck: supple, No cervical LAD, no thyromegaly, no carotid bruits CV: RRR, normal S1 and S2, no murmurs, no gallops, no rubs, Pulses 2+ and symmetric in UE and LE b/l Lungs: normal respiratory effort, CTA b/l, no wheezing or rhonchi or rales Abd: soft, NT, ND, +BS, no hepatosplenomegaly MS: FROM all 4 extremities Neuro: CN II-XII intact b/l, strength 5/5 b/l UE and LE, DTRs 2/4 UE and LE, sensation intact. Thin, mild muscle loss temporal and thigh and upper arms No edema Skin: warm, dry, intact, No rashes or lesions on exposed skin. ASSESSMENT/PLAN: 1. Muscle weakness of extremity - ICD9: 728.87, ICD10: M62.81 (primary diagnosis) - labs as ordered, unsure if just related to weight loss, other labs have been stable. Need referral to nutrition therapy for opinion as well as needs for capsule endoscopy and consideration of EGD as well. - CBC + DIFF - COMP METABOLIC PANEL - CK CREATINE KINASE - ALDOLASE BLD - LD LACTATE DEHYDRO - URIC ACID BLOOD - CONSULT TO NUTRITION THERAPY 2. Myalgia - ICD9: 729.1, ICD10: M79.10 - labs as ordered, unsure if just related to weight loss, other labs have been stable. Need referral to nutrition therapy for opinion as well as needs for capsule endoscopy and consideration of EGD as well. - CBC + DIFF - COMP METABOLIC PANEL - CK CREATINE KINASE - ALDOLASE BLD - LD LACTATE DEHYDRO - URIC ACID BLOOD - CONSULT TO NUTRITION THERAPY 3. Generalized abdominal pain - ICD9: 789.07, ICD10: R10.84 - labs as ordered, unsure if just related to weight loss, other labs have been stable. Need referral to nutrition therapy for opinion as well as needs for capsule endoscopy and consideration of EGD as well. - CAPSULE ENDOSCOPY SMALL BOWEL - PREALBUMIN BLD - TSH BLD - T4 FREE/FREE THYROX - T3 FREE BLD - URIC ACID BLOOD - CONSULT TO NUTRITION THERAPY 4. Fatigue, unspecified type - ICD9: 780.79, ICD10: R53.83 - labs as ordered, unsure if just related to weight loss, other labs have been stable. Need referral to nutrition therapy for opinion as well as needs for capsule endoscopy and consideration of EGD as well. - PREALBUMIN BLD - TSH BLD - T4 FREE/FREE THYROX - T3 FREE BLD - URIC ACID BLOOD - CONSULT TO NUTRITION THERAPY 5. Acute constipation - ICD9: 564.00, ICD10: K59.00 - labs as ordered, unsure if just related to weight loss, other labs have been stable. Need referral to nutrition therapy for opinion as well as needs for capsule endoscopy and consideration of EGD as well. - CAPSULE ENDOSCOPY SMALL BOWEL 6. Unintentional weight change - ICD9: 780.99, ICD10: R68.89 - labs as ordered, unsure if just related to weight loss, other labs have been stable. Need referral to nutrition therapy for opinion as well as needs for capsule endoscopy and consideration of EGD as well. - CAPSULE ENDOSCOPY SMALL BOWEL - CONSULT TO NUTRITION THERAPY 7. Gluten intolerance - ICD9: 579.0, ICD10: K90.41 - labs as ordered, unsure if just related to weight loss, other labs have been stable. Need referral to nutrition therapy for opinion as well as needs for capsule endoscopy and consideration of EGD as well. - CONSULT TO NUTRITION THERAPY 8. Lactose intolerance - ICD9: 271.3, ICD10: E73.9 - labs as ordered, unsure if just related to weight loss, other labs have been stable. Need referral to nutrition therapy for opinion as well as needs for capsule endoscopy and consideration of EGD as well. - CONSULT TO NUTRITION THERAPY Alverto Ceja DO To ER if develops chest pain, shortness of breath, or severe worsening of symptoms. Discussed risks, benefits, alternatives, and potential side effects of medications. Patient expressed understanding and agreed with the plan. Alverto Ceja DO [address] [place] [address] documented in this encounter [facility] 02-01-2023 Miscellaneous Notes Pt informed, verbalized understanding Bozena Denny His biopsies from his colonoscopy are normal. He can discuss this in more detail if he needs to at his appointment with Dr. Ceja at his upcoming appointment. Rosa Henson APRN.CNP Appointment made. He would like colonoscopy results. Okay to schedule tomorrow evening if still have opening on my schedule Alverto Ceja DO Patient Tamara calling asking for appt with PCP to go over colonoscopy biopsy results, Dr Ko said PCP would give those. also wants to discuss husbands continued weight loss, discuss diet and what they need to do next. 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 Please advise documented in this encounter [facility] 01-30-2023 Miscellaneous Notes Called and updated patient to call and f/u with PCP that ordered the colonoscopy for results. Patient voiced understanding. Nicolette Delgado LPN Patient requesting Dr. Ko's office to advise him of any recent surgical biopsy results. Thank you. documented in this encounter [facility] 01-02-2023 Miscellaneous Notes Would like to have Colonoscopy in [place] with F surgeons. Please schedule. Yes fine to have his colonoscopy in [place] from our standpoint. Rosa Henson APRN.LAUREL Patient Tamara calling asking if has to see a Chief Unit Forester or could he is General Surgery to have the colonoscopy done? said she knows [place] site does not have Gastro and may have to wait for appt. Pending consult if wanted, needs diagnosis. Please advise talked to patients she want to talk to [facility] office before scheduling. the gastro appt. please call to adive GI consult placed for colonoscopy. Thyroid lab work placed. Thank you, Dari Payton APRN.LAUREL Patient's calls and states that patient has had a lot of anxiety due weight loss and all the testing he has done. asking for colonoscopy order to placed so she can schedule it. See 12/28/2022 note. also asking for T4 Free, T3, and TSH labs to be placed. Patient is supposed to have 3 month follow up labs done from results on 12/13/2021. Please give a call to schedule patient's colonoscopy. Please review and advise, Lian Hernandez RN documented in this encounter [facility] 01-02-2023 Instructions Rosa Henson APRN.TWIST PACKER - 01/02/2023 2:16 PM EST Images from the original note were not included. Bowel Preparation Instructions for: Miralax-Gatorade Preparations IF YOU DO NOT FOLLOW THESE DIRECTIONS, YOUR COLONOSCOPY WILL BE CANCELLED. [place] Instructions: Your bowel must be empty so that your doctor can clearly view your colon. Follow all of the instructions in this handout EXACTLY as they are written. Do NOT eat any solid food the ENTIRE day before your colonoscopy. Buy your bowel preparation at least 5 days before your colonoscopy. Four (4) Dulcolax laxative tablets containing 5mg of bisacodyl each (NOT Dulcolax stool softener) One (1) 8.3oz. bottle Miralax (238 grams) or generic equivalent 2 x 32oz. Bottles of Gatorade (NOT RED) Diabetic Patients: Use G2 (Gatorade 2) TRANSPORTATION on the Day of Your Exam A responsible adult MUST be present with you at Check In prior to your colonoscopy and REMAIN in the endoscopy area until you are discharged. You are NOT ALLOWED to drive, take a taxi or bus, or leave the Endoscopy Center ALONE. If you do not have a responsible road driver (family member or friend) with you to take you home, your exam cannot be done with sedation and will be cancelled. Please bring a list of all of your current medications, including any [id number]-[id number] medications with you. Medications If you take insulin, diabetic medications or blood thinners such as Coumadin (warfarin), Plavix (clopidogrel), Ticlid (ticlopidine hydrochloride), Agrylin (anagrelide), Xarelto (Rivaroxaban), Pradaxa (Dabigatran), Eliquis (Apixaban), and Effient (Prasugrel). You MUST call the doctors who orders those medicines for instructions on altering the dosage before your colonoscopy. All other medications should be taken the day of the exam with a sip of water including ASPIRIN. Five (5) Days Before Your Colonoscopy Do NOT take medicines that stop diarrhea - such as Imodium, Kaopectate, or Pepto Bismol. Do NOT take fiber supplements - such as Metamucil, Citrucel, or Perdiem. Do NOT take products that contain iron - such as multi-vitamins (the label lists what is in the products). Three (3) Days Before Your Colonoscopy Do NOT eat high-fiber foods - such as popcorn, beans, seeds (flax, sunflower, quinoa), multigrain bread, nuts, salad/vegetables, or fresh and dried fruit. 1 Bowel Preparation Instructions for: Miralax-Gatorade Preparations One (1) Day Before Your Colonoscopy Only drink clear liquids the ENTIRE DAY before your colonoscopy. Do NOT eat any solid foods. Drink at least 8 ounces of clear liquids every hour after waking up. The clear liquids you can drink include: Clear Liquid (NO RED LIQUIDS) DO NOT DRINK Gatorade, Pedialyte or Powerade Clear broth or bouillon Coffee or tea (no milk or non-dairy creamer) Carbonated and non-carbonated soft drinks Matti-Aid or other fruit flavored drinks Strained fruit juices (no pulp) Jell-O, popsicles, hard candy Water Alcohol Milk or non-dairy creamers Noodles or vegetables in soup Juice with pulp Liquid you cannot see through Do not use tobacco/vaping products Mix 1/2 of Miralax bottle (119 grams) in each 32 ounces of Gatorade bottle until dissolved. Keep cool in the refrigerator. DO NOT ADD ICE. The bowel preparation solution will be consumed in two parts. Part 1 5:00 PM - Evening before your colonoscopy Take 4 Dulcolax tablets. 6 PM - Evening before your colonoscopy Drink 32 oz. of the mixed solution. Drink an 8 oz. glass of bowel preparation every 15 minutes for a total of 4 glasses. Fifteen (15) minutes later, drink an 8 oz. glass of of clear liquids every 15 minutes for a total of 2 glasses. You may continue to drink clear liquids till midnight. Part 2 On the day of your colonoscopy you may drink clear liquids up to (three) 3 hours prior to procedure. 4 1/2 hours before your colonoscopy Take another 32 oz. bottle of mixed solution. Drink an 8 oz. glass of bowel prep every 15 minutes for a total of 4 glasses. Fifteen (15) minutes later, drink an 8 oz. glass of clear liquids every 15 minutes for a total of 2 glasses. You may continue to drink clear liquids up to (three) 3 hours before your exam. 2 10/2019 documented in this encounter [facility] 12-29-2022 Miscellaneous Notes Spoke with pt gave information provided. Pt voices understanding. Phoned patient and left message to return call and ask to speak to a nurse for results. Please inform patient that his labs show that they are all normal except his Celiac panel shows that he has a high risk Haplotype test which means he is at high risk for Celiac disease. Although this lab can't 100% confirm Celiac disease, it means it is likely. Would recommend that he has his colonoscopy as well as needs to cut gluten out of his diet as much as able to help symptom management Alverto Ceja DO documented in this encounter [facility] 12-20-2022 History of Present illness Narrative CC: Thuy Kim is a 57 year old male who presents to the office for follow up HPI: Patient was seen in office by Dari Payton CNP on 11/04/22 As below Odd symptoms started several years ago with severe pain in the bottom of my feet to the point where I couldn t walk.I assumed it was plantar fasciitis. later I started getting numbness in my lips. And for the last couple of years I ve been getting twitching in my muscles, particularly my calves, the numbness that was in my lips is protruding to the side of my face slightly into my right cheekbone And most recently I ve been getting what I would call, humming or buzzing in my head off and on right before I wake up over the last several months,and more recently it s a slight vibration behind my eyes, and the only thing I could find that resembles it is night tremors. Along with that is the constant heart palpitations every time I eat the wrong thing or over work myself, which to me isn t over working and a constant pain in my neck, and back that s exaggerated when I work out and usually takes a couple of days to recover from a mild workout .I m not sure if these are symptoms from Mariana s or whether there s a possibility it could be Lyme disease. 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 Also, there s another girl that works on the farm who is currently being treated and over the last two years for Lyme disease, which has me concerned. I hope there s some thing we can do to make sense of this, thanks. I have been trying vitamins you suggested for the tingling in my legs, nothing has helped. Is there testing we can do for Lyme? Main concern is for lyme disease. 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 Reports on new Magnesium supplement d/t leg cramping. Mariana disease has been stable but wondering if this is playing a role as well. All symptoms are mild and not very bothersome but pt getting frustrated with no answers to a cause. Currently His previous testing for lyme and other labs were all stable/normal. He continues to have intermittent feeling of palpitations, mostly rare though now. Feels he is getting used to the symptoms and likely also triggered when anxious or not sure what his symptoms are being triggered by. Now that he is mostly sugar free and gluten free and dairy free and eating mostly certain vegetables and meats, he is feeling better. Still some muscle weakness and fatigue symptoms and aching. Is very physically active. Also has lost weight, unintentionally but has made drastic dietary changes over the last few months as above. PAST MEDICAL HISTORY Diagnosis Date Anxiety Aortic root dilation (HCC) Bicuspid aortic valve Mariana's thyroiditis Migraine-cluster headache syndrome Moderate aortic stenosis Palpitation PAST SURGICAL HISTORY Procedure Laterality Date APPENDECTOMY age 11 -- after rupture KNEE SURGERY HX torn meniscus Current Outpatient Medications Medication Sig levothyroxine (LEVOXYL) 75 mcg tablet Take 1 tablet by mouth once daily. Take on empty stomach. For Thyroid Miscellaneous Medical Supply (BLOOD PRESSURE CUFF) 1 Each once daily. Current Facility-Administered Medications Medication Dose Route Frequency perflutren lipid microspheres 1.3 mL in NaCl (PF) 0.9% 10 mL injection (DEFINITY) INTRAVENOUS DIRECTED PRN sodium chloride 0.9 % (flush) 10 mL (BD POSIFLUSH) 10 mL INTRAVENOUS DIRECTED PRN ALLERGIES Allergen Reactions Iv Contrast [Iodine] Other: See Comments Shaking, seizure like activity per pt Prednisone Mental Status Change Steroid psychosis Social History Tobacco Use Smoking status: Former Packs/day: 1.00 Years: 5.00 Pack years: 5.00 Types: Cigarettes Quit date: 1979 Years since quittin.1 Smokeless tobacco: Never Vaping Use Vaping Use: Never used Substance Use Topics Alcohol use: Yes Alcohol/week: 35.0 standard drinks Types: 14 Cans of Beer (12oz) per week Drug use: Not Currently ROS: See HPI PE: BP 118/80 Pulse 80 Temp (Src) 97 (Left Tympanic) Resp 16 Wt 186 lb (84.4kg) Gen: A&OX3, NAD, non-toxic appearing HEENT: PERRLA, EOMs intact b/l, nares without drainage, pharynx without erythema, exudate, lesions, or drainage. Uvula midline. Neck: No LAD, no thyromegaly, no meningismus. CV: RRR, no murmur Lungs: CTA b/l, no wheezing Skin: No rashes, lesions, or wounds on exposed skin. No muscle atrophy No obvious joint prominence or synovitis Normal gait ASSESSMENT/PLAN: 1. Myalgia - ICD9: 729.1, ICD10: M79.10 (primary diagnosis) Labs as ordered, likely also related to need for increase anaerobic exercise with light weights only as well as weight loss with his dietary changes. - CELIAC COMPREHENSIVE PANEL - CK CREATINE KINASE - TESTOSTERONE, FREE AND TOTAL - ALDOLASE BLD - PREALBUMIN BLD - HISTAMINE BLD - VITAMIN B12 BLOOD - C-REACTIVE ULTRA SEN - CORTISOL BLD 2. Weight loss - ICD9: 783.21, ICD10: R63.4 Unsure cause other than significant dietary changes that he has made which are helping his health overall - CELIAC COMPREHENSIVE PANEL - CK CREATINE KINASE - TESTOSTERONE, FREE AND TOTAL - ALDOLASE BLD - PREALBUMIN BLD - HISTAMINE BLD - VITAMIN B12 BLOOD - C-REACTIVE ULTRA SEN - CORTISOL BLD 3. Arthralgia, unspecified joint - ICD9: 719.40, ICD10: M25.50 Labs as ordered, likely also related to need for increase anaerobic exercise with light weights only as well as weight loss with his dietary changes. - CELIAC COMPREHENSIVE PANEL - CK CREATINE KINASE - TESTOSTERONE, FREE AND TOTAL - ALDOLASE BLD - PREALBUMIN BLD - HISTAMINE BLD - C-REACTIVE ULTRA SEN - CORTISOL BLD 4. Mariana's thyroiditis - ICD9: 245.2, ICD10: E06.3 Recheck labs as ordered, thyroid labs are stable - CELIAC COMPREHENSIVE PANEL - CK CREATINE KINASE - TESTOSTERONE, FREE AND TOTAL - ALDOLASE BLD - PREALBUMIN BLD - HISTAMINE BLD 5. Screening for prostate cancer - ICD9: V76.44, ICD10: Z12.5 - Counseled on healthy diet and regular exercise - PSA/PROSTSPECAG SCRN 6. Palpitations - ICD9: 785.1, ICD10: R00.2 Labs as ordered, likely also related to need for increase anaerobic exercise with light weights only as well as weight loss with his dietary changes. Alverto Ceja DO Return if no improvement. Follow up with Alverto Ceja DO. To ER if develops chest pain, shortness of breath Discussed risks, benefits, alternatives, and potential side effects of medications. Patient/Guardian expressed understanding and agreed with the plan. See patient instructions. Alverto Ceja DO [address] [place] [address] documented in this encounter [facility] 12-19-2022 Miscellaneous Notes Patient phones requesting refills as follows: Requested Prescriptions Pending Prescriptions Disp Refills levothyroxine (LEVOXYL) 75 mcg tablet 90 tablet 1 Sig: Take 1 tablet by mouth once daily. Take on empty stomach. For Thyroid JEANNETTE-12/16/22 Labs-12/16/22 NOV-none med filled 08/05/22 Please review and advise. Renata Calderon LPN documented in this encounter [facility] 12-14-2022 Miscellaneous Notes Pts called and is notified of providers message and instructions. She voices understanding. Updated medication list per message from 09/14/23. Bernarda Olvera RN Please have patient keep appointment for Monday and all of this will be discussed. If Dr. Ceja feels testosterone level may be causing symptoms, we can order lab work at appointment. I agree, pt likely needs to increase levothyroxine dosage. Our records show that he is taking 75 mcg daily. Is he only taking half of this? Again, I would wait till appointment to discuss this with Dr. Ceja and update chart on correct regimen. Thank you, Dari Payton APRN.TWIST PACKER Pts called in and reports Pt has had extensive blood work done recently and his TSH just came back elevated. She reports the provider is only having him take a half a tablet, so that may need to be increased. She states he feels like his metabolism is going crazy and he's hungry all the time. She said he's had some weight loss no more than when he had been seen previously. She also states he reports pain in his muscles when he exercises and wanted to know if there was anything that could help with that./ Pt has an appointment with provider on 12/16/22. I told them not to cancel the appointment, that the provider would probably want to see him. was asking if maybe his Testosterone was low and that could be causing the muscle weakness. I told her he hasn't had a Testerone level checked. Please call and advise. documented in this encounter [facility] 11-04-2022 History of Present illness Narrative Chief Complaint Patient presents with: Wellness: Many complaints HPI Thuy Kim is a 57 year old male who presents here today for Above Complaints. Thuy is an established patient of Dr. Marcial Do. Thuy is a new patient to me today. Concerns today... Per crystal yesterday-- Odd symptoms started several years ago with severe pain in the bottom of my feet to the point where I couldn t walk.I assumed it was plantar fasciitis. later I started getting numbness in my lips. And for the last couple of years I ve been getting twitching in my muscles, particularly my calves, the numbness that was in my lips is protruding to the side of my face slightly into my right cheekbone And most recently I ve been getting what I would call, humming or buzzing in my head off and on right before I wake up over the last several months,and more recently it s a slight vibration behind my eyes, and the only thing I could find that resembles it is night tremors. Along with that is the constant heart palpitations every time I eat the wrong thing or over work myself, which to me isn t over working and a constant pain in my neck, and back that s exaggerated when I work out and usually takes a couple of days to recover from a mild workout .I m not sure if these are symptoms from Mariana s or whether there s a possibility it could be Lyme disease. 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 Also, there s another girl that works on the farm who is currently being treated and over the last two years for Lyme disease, which has me concerned. I hope there s some thing we can do to make sense of this, thanks. I have been trying vitamins you suggested for the tingling in my legs, nothing has helped. Is there testing we can do for Lyme? Currently today... Above symptoms as stated above. Main concern is for lyme disease. 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 Reports on new Magnesium supplement d/t leg cramping. Mariana disease has been stable but wondering if this is playing a role as well. All symptoms are mild and not very bothersome but pt getting frustrated with no answers to a cause. Past medical history, appointments, medications, allergies reviewed. Previous Medical History PAST MEDICAL HISTORY Diagnosis Date Anxiety Aortic root dilation (HCC) Bicuspid aortic valve Mariana's thyroiditis Migraine-cluster headache syndrome Moderate aortic stenosis Palpitation Previous Surgical History PAST SURGICAL HISTORY Procedure Laterality Date APPENDECTOMY age 11 -- after rupture KNEE SURGERY HX torn meniscus Family History FAMILY HISTORY Problem Relation Age of Onset Heart Failure Mother Emphysema Mother Heart Attack Father Coronary Artery Disease Father stent Diabetes Father Kidney Disease Father Patient Allergies ALLERGIES Allergen Reactions Iv Contrast [Iodine] Other: See Comments Shaking, seizure like activity per pt Prednisone Mental Status Change Steroid psychosis Current Medications Current Outpatient Medications on File Prior to Visit Medication Sig levothyroxine (LEVOXYL) 75 mcg tablet Take 1 tablet by mouth once daily. Take on empty stomach. For Thyroid Amoxicillin 500 mg tablet Take 4 tablets by mouth as directed. Take 1 hour prior to dental procedure for prophylaxis metoprolol succinate ER (TOPROL XL) 25 mg 24 hr tablet Take 1 tablet by mouth daily at bedtime. Miscellaneous Medical Supply (BLOOD PRESSURE CUFF) 1 Each once daily. Current Facility-Administered Medications on File Prior to Visit Medication perflutren lipid microspheres 1.3 mL in NaCl (PF) 0.9% 10 mL injection (DEFINITY) sodium chloride 0.9 % (flush) 10 mL (BD POSIFLUSH) Social History Social History Tobacco Use Smoking status: Former Packs/day: 1.00 Years: 5.00 Pack years: 5.00 Types: Cigarettes Quit date: 1979 Years since quittin.0 Smokeless tobacco: Never Vaping Use Vaping Use: Never used Substance Use Topics Alcohol use: Yes Alcohol/week: 35.0 standard drinks Types: 14 Cans of Beer (12oz) per week Drug use: Not Currently REVIEW OF SYSTEMS: as above Reviewed relevant PMHx, PSHx, Social Hx, current medications and allergies. Review of Symptoms REVIEW OF SYSTEMS See HPI. EXAM: BP 110/60 (BP Site: Left Arm, BP Position: Sitting, BP Cuff Size: Regular Adult) Pulse 60 Resp 18 Wt 86.9 kg (191 lb 9.6 oz) BMI 26.72 kg/m General Appearance: Well appearing, alert, in no acute distress, well-hydrated, well nourished.. Skin: Skin color, texture, turgor normal, no suspicious rashes or lesions. Head: Normocephalic, no masses, lesions, tenderness or abnormalities. Lungs: Lungs clear to auscultation. No wheezing, rhonchi, rales.. Heart: RRR without murmur, gallop, or rubs. No ectopy. Extremities: No deformities, edema, skin discoloration, clubbing or cyanosis. Good capillary refill. . Musculoskeletal: No joint swelling, deformity, or tenderness. Peripheral Pulses: Normal. Neurologic: Gait normal. Reflexes normal and symmetric. Sensation grossly intact.. Health Maintenance List HEPATITIS C SCREENING Never done HIV SCREENING Never done DTAP,TDAP,TD(1 - Tdap) Never done COLORECTAL CANCER SCREENING Never done SHINGRIX VACCINE(1 of 2) Never done PROSTATE CANCER SCREENING DISCUSSION Never done DEPRESSION ASSESSMENT Never done INFLUENZA(1) Never done COVID-19 VACCINE(1) due on 02/11/2023 DIABETES SCREEN due on 06/24/2025 LIPID SCREEN due on 06/13/2027 ASSESSMENT/PLAN: 1. Arthralgia, unspecified joint - ICD9: 719.40, ICD10: M25.50 (primary diagnosis) Lab work as below. If no cause found, will further investigate. Keep upcoming appointment with Dr. Ceja. - MAGNESIUM BLD - LYME AB LATE >30 DAYS SYMPTOMS - STACEY BLOOD - SED RATE WESTERGREN - C-REACTIVE PROTEIN (CRP) - CBC + DIFF - COMP METABOLIC PANEL 2. 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 - LYME AB LATE >30 DAYS SYMPTOMS 3. Palpitations - ICD9: 785.1, ICD10: R00.2 See above. - LYME AB LATE >30 DAYS SYMPTOMS 4. Muscle cramping - ICD9: 729.82, ICD10: R25.2 Continue magnesium supplement. Recheck magnesium level. - MAGNESIUM BLD - LYME AB LATE >30 DAYS SYMPTOMS 5. Tick bite, unspecified site, subsequent encounter - ICD9: V58.89, 919.4, ICD10: W57.XXXD - LYME AB LATE >30 DAYS SYMPTOMS 6. Tingling of face - ICD9: 782.0, ICD10: R20.2 - LYME AB LATE >30 DAYS SYMPTOMS RTO as scheduled, sooner if needed. Prescription instructions reviewed with patient as applicable. Potential red flag symptoms discussed with the patient. Reviewed appropriate action plan to take if red flag symptoms occur. Patient agreeable to treatment plan. Dari Butcher APRN.LAUREL [address] [place] [address] documented in this encounter [facility] 09-27-2022 Miscellaneous Notes Pt updated of providers message through message. ROMAN Plaza VM left for patient to call PCP office for message. Edith Benson RN Fine to continue with 1/2 tablet daily. Recheck the thyroid labs again in 3 months. I've placed these orders. Rosa Henson APRN.LAUREL documented in this encounter [facility] 08-11-2022 Miscellaneous Notes Spoke with pt gave information provided. Pt voices understanding. I see. Have him continue half a tablet daily if better tolerated and still recheck lab work in 4-6 weeks. Thank you, Dari Butcher APRN.LAUREL Patient returned call and given provider's message below. Patient reports he has not been taking thyroid medication routinely for the past [address] Ceja told him not to take it, to get it out of his system, to reboot his system. Reports he had last a lot of weight. Reports he was basically 1 month without the thyroid medication when he did his labs. Just started taking thyroid medication again on this past Monday. Started at 75 mcg, but made him feel funny so the rest of the days he cut the 75 mcg in half and took the half pill. Based on this information- did not give rest of provider's message, as may not apply to this new info. Please review and advise patient. Left message to call office. 08/11/2022 9:29 AM Betty Galindo LPN Please call patient and first clarify that he has been taking thyroid medication routinely since last visit (for the past 4 weeks). If so, TSH level is elevated at 6.4. T3 and t4 are within normal limits but with significant room for increase. I recommend increasing synthroid dosage very slightly. I recommend taking 1 tablet of 75 mcg daily 5x/week and take 1.5 tablets 2x/week. If agreeable, let me know so I can send this over. Thank you, Dari Butcher APRN.TWIST PACKER documented in this encounter [facility] 08-05-2022 Miscellaneous Notes Spoke with pt gave information provided. Pt voices understanding. He should resume his levothyroxine 75mcg daily, and then we'll recheck in 4-6 weeks. The following approved medication requests have been transmitted electronically. Requested Prescriptions Signed Prescriptions Disp Refills levothyroxine (LEVOXYL) 75 mcg tablet 90 tablet 1 Sig: Take 1 tablet by mouth once daily. Take on empty stomach. For Thyroid Authorizing Provider: ALVERTO CEJA Ordering User: ROSA HENSON APRN.CNP Pt reports he hasn't taken rx for a month and doesn't remember the dosage. Bozena Rodriguez Ma Please confirm his current dose of levothyroxine 75mcg daily. If this is his current dose, I'd like him to increase to 88mcg daily and recheck in 6-8 weeks. Please let me know if I need to place this new order. Rosa Henson APRN.CNP Edu calling regarding patient lab results. States they are waiting to hear what he needs to do regarding thyroid medication. Labs were done 07/29. Please advise. documented in this encounter [facility] 07-28-2022 Miscellaneous Notes Seen in the office on 07/[address] Ceja. Rosa Henson APRN.LAUREL See pt message and advise. Niya Hunter Ma documented in this encounter [facility] 07-04-2022 Miscellaneous Notes ER follow up scheduled 07/13. PCP responded to ECHO question in other TE. Scarlett Salinas, RN Spoke with pt and pt's . Reviewed Dr Caraballo's message and instructions. They report that pt had been cutting back on thyroid medication the week prior to 06/24/appointment with pcp. Per pt's pcp had advised pt that since he was pretty much weaned off the medication he could just go ahead and stop the medication and recheck in [address] Caraballo cannot see this in her note. Pt does advise that he thought maybe his back was out d/t the pain was radiating to his back and it looked like one shoulder was dropped a little bit. He did get an adjustment at chiropractor today after ER visit and does feel some relief. Still states it is hard to get a deep breath. He is wanting to know if adjustment could be affecting bp and heart rate. Advised him that Dr Caraballo is still advising that he return to ER and have thyroid labs completed if they were not done. states that these were not checked. Pt checked bp twice during this call and 1st reading was 147/102 p 88 second reading was 130/83. Pt and are agreeable to return to [facility] ER. Advised them would send this message to Dr Ceja to review on Mon. They also state pt had a CT of chest/heart in ER and want to know if pt still needs to complete echo scheduled for 07/05 ordered by pcp. Please advise. Masha Davila LPN Let know if symptoms worse she should take him back to the ER. I also reviewed his notes and it looks like the last time he was in the office was 02/11/2022. The chart says there was a office visit on 06/24/2022 but there is no note available to review just that labs and a echo was ordered. Appears echo is set up for 07/05/2022. I see where DR. Ceja advised to stop the metoprolol however I do not see where she said to stop the levothyroxine but on 06/15/2022 she advised he go to taking his levothyroxine 6 days out of 7 instead of 7 days out of 7. If he stopped it all together then this could be causing his symptoms and she needs to take him to the ER and advise them of this because thyroid storm is a medical emergency. Otherwise he should be seen in the office next week and if not able to be seen by Dr. Ceja then he needs to be open to being seen by one of her NATHANIEL's so he is seen next week and not weeks from now. Otherwise he is just delaying the care he needs. Patient's calling to let PCP know patient was seen in ER today for neck and chest tightness and elevated BP. She states the cardiac tests they did in the ER were negative. They were instructed to follow up with PCP. She states he was sent home from ER with tightness in his neck and chest. She says his BP is now 149/88 HR 92. She states his Levothyroxine and Metoprolol had been discontinued @ last OV. She states she is wondering if he is having a thyroid storm? She read the symptoms on the internet. She is asking this nurse to contact PCP at home to manage his situation. Advised PCP is out of office and is not production machine tender. Advised will send message to DOC to review but patient should return to ER for new or worsening symptoms. Offered ER follow up visit with first available provider. Patient's states they only want to see Dr. Ceja. Scarlett Salinas RN documented in this encounter [facility] 07-04-2022 Miscellaneous Notes Spoke with patient's . Given message from provider's office. Patient's verbalizes understanding. Scarlett Salinas RN Please call patient and have then complete the ECHO as ordered previously. Would recommend EMERGENCY DEPARTMENT follow up next MonJul 13 7pm if willing to come into office, to review again his symptoms and how he is feeling. Alverto Ceja DO Patient Tamara calling had been to [facility] ER twice Monday. He was having chest pain, shortness of breath, neck and back pain. After first visit to ER she had taken him to chiropractor thinking he either had rib or his back was out. Dr Caraballo had advised to go back to ER to have labs checked to make sure he was not having thyroid storm. Labs were negative. He has only taken aleve few times for discomfort. No changes were made. asking if he needs to do ER follow up visti with PCP? is scheduled for ECHO tomorrow at 7 am, asking if he needs to keep appt since he had lots of testing at [facility]? Please advise documented in this encounter [facility] 07-01-2022 History of Present illness Narrative CC: Thuy Kim is a 57 year old male who presents to the office for follow up. HPI: Patient and Tamara are in office today He states that he has been having some muscle cramping in his calves and has been having blood pressure and heart rate fluctuation down to 40-50s heart rate but this has resolved recently. 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 He tries to drink adequate water intake. Has aortic valve bicuspid with stenosis moderate. Last ECHO 1 year ago. Denies any chest pressure/pain or dyspnea. Does get fatigued. and him have been starting new black water supplement with minerals that is very concentrated per . He has been having some palpitations intermittently. No syncope but has felt lightheaded at times especially when bending over- not typically associated with exertion but sometimes when outside and hot temp. States he has lost weight intentionally with diet changes- trying to cut out sugar, dairy and wheat from his diet. He states that he has cut his medication metoprolol down to 1/2 tablet a day PAST MEDICAL HISTORY Diagnosis Date Anxiety Aortic root dilation (HCC) Bicuspid aortic valve Mariana's thyroiditis Migraine-cluster headache syndrome Moderate aortic stenosis Palpitation PAST SURGICAL HISTORY Procedure Laterality Date APPENDECTOMY age 11 -- after rupture KNEE SURGERY HX torn meniscus Social History: Social History Tobacco Use Smoking status: Former Packs/day: 1.00 Years: 5.00 Pack years: 5.00 Types: Cigarettes Quit date: 1979 Years since quittin.6 Smokeless tobacco: Never Vaping Use Vaping Use: Never used Substance Use Topics Alcohol use: Yes Alcohol/week: 35.0 standard drinks Types: 14 Cans of Beer (12oz) per week Drug use: Not Currently FAMILY HISTORY Problem Relation Age of Onset Heart Failure Mother Emphysema Mother Heart Attack Father Coronary Artery Disease Father stent Diabetes Father Kidney Disease Father Current Outpatient prescriptions: levothyroxine (LEVOXYL) 75 mcg tablet^Take 1 tablet by mouth once daily. Take on empty stomach. For Thyroid^Disp: 90 tablet^Rfl: 1 metoprolol succinate ER (TOPROL XL) 25 mg 24 hr tablet^Take 1 tablet by mouth daily at bedtime.^Disp: 90 tablet^Rfl: 1 Amoxicillin 500 mg tablet^Take 4 tablets by mouth as directed. Take 1 hour prior to dental procedure for prophylaxis^Disp: 12 tablet^Rfl: 1 Miscellaneous Medical Supply (BLOOD PRESSURE CUFF)^1 Each once daily.^Disp: 1 Each^Rfl: 0 Allergies: ALLERGIES Allergen Reactions Iv Contrast [Iodine] Other: See Comments Shaking, seizure like activity per pt Prednisone Mental Status Change Steroid psychosis ROS: See HPI PE: 06/24/22 1556 BP: 120/80 Pulse: 68 Resp: 16 Temp: (!) 35.8 C (96.4 F) TempSrc: Left Tympanic Weight: 89.8 kg (198 lb) Gen: A&O, NAD, non-toxic appearing, Pleasant, cooperative HEENT: NT/AC, PERRLA, EOMs intact b/l, nares clear and patent b/l, pharynx without erythema, exudate or lesions. Uvula midline. EACs without erythema or debris. TMs pearly nunez with intact landmarks b/l. Neck: supple, No cervical LAD, no thyromegaly, no carotid bruits CV: RRR, normal S1 and S2, no murmurs, no gallops, no rubs, Pulses 2+ and symmetric in UE and LE b/l Lungs: normal respiratory effort, CTA b/l, no wheezing or rhonchi or rales Abd: soft, NT, ND, +BS, no hepatosplenomegaly MS: FROM all 4 extremities Neuro: CN II-XII intact b/l, strength 5/5 b/l UE and LE, DTRs 2/4 UE and LE, sensation intact. Skin: warm, dry, intact, No rashes or lesions on exposed skin. No edema, normal pulses ASSESSMENT/PLAN: 1. Muscle cramping - ICD9: 729.82, ICD10: R25.2 (primary diagnosis) Recheck labs as ordered, unsure if related to this new black watersupplement that he has been trying or related to other cause. Will check labs and follow up - MAGNESIUM BLD - VITAMIN B6/PYRIDOXIN - VITAMIN B12 BLOOD - RBC FOLATE - VITAMIN D 25 HYDROXY - HEAVY METALS SCRN BL - IRON + TIBC - FERRITIN BLD - CBC + DIFF 2. Hypocalcemia - ICD9: 275.41, ICD10: E83.51 - Recheck labs as ordered, unsure if related to this new black watersupplement that he has been trying or related to other cause. Will check labs and follow up - PTH INTACT BLD - CALCIUM IONIZED BLOOD - COMP METABOLIC PANEL - HEAVY METALS SCRN BL - IRON + TIBC - FERRITIN BLD - CBC + DIFF 3. Aortic valve disorder - ICD9: 424.1, ICD10: I35.9 Recheck ECHO, unsure if contributing to symptoms at this time. No chest pressure or dyspnea or syncope - ECHO - PERFLUTREN LIPID MICROSPHERES 1.1 MG/ML INJECTION IN NS 10 ML - SODIUM CHLORIDE 0.9 % (FLUSH) INJECTION SYRINGE 4. Bradycardia - ICD9: 427.89, ICD10: R00.1 - Recheck ECHO, unsure if contributing to symptoms at this time. No chest pressure or dyspnea or syncope. Has bicuspid aortic valve and stenosis. Needs follow up with Cardiology for opinion. He will go to EMERGENCY DEPARTMENT if symptoms worsen. He has already cut his metoprolol dosing in 1/2 to 12.5 mg once a day- not bradycardic in office today 5. Aortic dilatation (HCC) - ICD9: 447.70, ICD10: I77.819 - Recheck ECHO, unsure if contributing to symptoms at this time. No chest pressure or dyspnea or syncope. Has bicuspid aortic valve and stenosis. Needs follow up with Cardiology for opinion. He will go to EMERGENCY DEPARTMENT if symptoms worsen 6. Mariana's thyroiditis - ICD9: 245.2, ICD10: E06.3 Recheck labs if symptoms worsen 7. Palpitations - ICD9: 785.1, ICD10: R00.2 - Recheck ECHO, unsure if contributing to symptoms at this time. No chest pressure or dyspnea or syncope. Has bicuspid aortic valve and stenosis. Needs follow up with Cardiology for opinion. He will go to EMERGENCY DEPARTMENT if symptoms worsen Alverto Ceja DO To ER if develops chest pain, shortness of breath, or severe worsening of symptoms. Discussed risks, benefits, alternatives, and potential side effects of medications. Patient expressed understanding and agreed with the plan. Alverto Ceja DO [address] [place] [address] documented in this encounter [facility] 06-17-2022 Miscellaneous Notes Patient had Thyroid US done 06/17 Pts called and is notified of providers results and instructions. She voices understanding. She was connected to scheduling to set up Thyroid US. Bernarda Olvera RN Pt informed, verbalized understanding. Please assist with scheduling US thyroid. Bozena Rodriguez Ma Please inform patient that his labs show that his free t4 levels are slightly elevated at 1.9, TSH levels are at 3.3 (normal level) and free T3 are also in a normal range. His thyroid peroxidase antibody is slightly elevated. I would recommend rechecking thyroid ultrasound and decreasing thyroid hormone to only 6 days, not 7 days a week. Alverto Ceja DO documented in this encounter [facility] 06-17-2022 Miscellaneous Notes This was addressed in telephone encounter on 06/15. Closing this one. Dari Butcher APRN.LAUREL Patient Tamara calling asking if PCP could review lab work he had done 06/13. said they had started taking Fulvic minerals, also called black water. They both took it from 05/27 and stopped it on 06/03. Not sure if that may have affected his thyroid labs now. She said he is taking levothyroxine 75 mcg one daily on empty stomach by itself first thing in the morning. First appt open with PCP is September 06, he does not want to see PRODUCTION SKI REPAIRER. said he is taking zinc, selenium, fish oil, vitamin B 12 and vitamin D, garlic. She said he was asking about taking vitamin K? Patient uses [facility] for his pharmacy if needs thyroid medication adjusted. had given me her cell number [phone] if needed. Please advise documented in this encounter [facility] 06-11-2022 Miscellaneous Notes Pt. informed. He will call back if Appt. is needed. Mariia Mendoza LPN Please call patient/ and have him hold the metoprolol 1/2 tablet (12.5 mg) a day that he is taking. This is likely causing the symptoms. Also can recheck ECG and place ZIO monitor on him if symptoms continue off the medication. Alverto Ceja DO [facility] Tamara calling asking if PCP was able to see this note. She said her pulse has been in the 40's lately, bp it remains low. He thinks it is his betablocker causing the issues. was asking for sooner appt or doing a virtual visit they have not done one before. He refuses to see PRODUCTION SKI REPAIRER. Please advise calling for pt and states the following * pt is feeling episodes of not able to catch his breath, heart will race then it comes back. This has been happening off and on. * pt feels his BP is to low and should not be taking BP medication. He is taking Metoprolol 25 mg 1/2 tab at bedtime. Blood pressures running 100-/60 and as low as 106/60. ( gave the BP listed, she is at work and did not have his recordings with her) Pt has been taking his BP at home. * pt not sleeping well * pt exhausted * pt willing to come in for an apt but wants to see his doctor to discuss above issues. Declines apt to see dot compliance manager * pt gets anxious when all this is happening. is aware you are unavailable today 06-09-22 and would like this message addressed by Dr Ceja when you return. If any changes or severe concerns arise before hearing back they will go to ER. Please advise . Cell phone [phone] Work phone till 5 pm [phone] Rhonda Hancock LPN documented in this encounter [facility] 05-25-2022 Miscellaneous Notes Agree with below. Rosa Henson APRN.LAUREL calls to report that patient has been having episodes of heart palpitations with being dizzy and lightheaded. Patient had one episode in the middle of the night a couple of days ago and an episode this morning. Patient is working outside in the heat currently. reports that patient did a finger blood pressure and it was 106/97. Spoke to patient in regards to BP reading which appears to be a pulse oximeter reading HR 106 and SPO2 97%. Patient doesn't know what his BP reading is. Patient hasn't taken metoprolol succinate ER in 3 days because he feels it is lowering his BP too much. Patient doesn't have any BP readings at this time. Encouraged patient to take metoprolol as ordered. Currently denies chest pain, palpitations, dizziness, light headed, fever, vomiting, diarrhea, or bleeding. Recommended when those spells occur that patient be evaluated in ED. Patient declining and reports that he has already been evaluated at ED and he knows that eventually he needs to have a mitral valve replacement. Patient asking what he can do to keep his blood pressure from dropping. Requested that patient take his blood pressure and call us with those results. Patient reports that he will complete that after work today and have call results in. Care advice and red flag symptoms to report to Ed with reviewed. Patient verbalizes understanding. Corie Hassan RN documented in this encounter [facility] 03-07-2022 Miscellaneous Notes Pts was called and notified of providers message and instructions. She voices understanding. Bernarda Olvera RN Yes, he can take 2000 mg of amoxicillin 1 hour prior to full dental exam/cleaning to prevent cardiac endocarditis ,this is a rare risk but okay to take prior Alverto Ceja, The following approved medication requests have been transmitted electronically. Signed Prescriptions Disp Refills Amoxicillin 500 mg tablet 12 tablet 1 Sig: Take 4 tablets by mouth as directed. Take 1 hour prior to dental procedure for prophylaxis Authorizing Provider: ALVERTO CEJA DO Patient Tamara sprague is at the dentist right now. Dentist does not want to do a complete exam due to his bicusid aortic value issue. Asking if he should be on antibiotic? He has not been to the dentist for many years. Patient uses [facility] for his pharmacy. Please advise documented in this encounter [facility] 02-11-2022 Miscellaneous Notes The following approved medication requests have been transmitted electronically. Signed Prescriptions Disp Refills doxycycline (VIBRA-TABS) 100 mg tablet 20 tablet 0 Sig: Take 1 tablet by mouth prn, at first sign of tick bite. Authorizing Provider: ALVERTO CEJA Ordering User: ROSA HENSON APRN.CNP Rodrigo from [facility] in [place] calling to ask for clarification regarding recent doxycycline prescription that was sent today. Rodrigo asks what the frequency and duration will be for this medication. Requesting new script be sent, if possible. Thank you. documented in this encounter [facility] Evaluation note Diagnosis Mariana's thyroiditis- Primary Chronic lymphocytic thyroiditis [facility] Diagnosis Muscle cramping- Primary Cramp of limb Hypocalcemia Aortic valve disorder Aortic valve disorders Bradycardia Other specified cardiac dysrhythmias Aortic dilatation (HCC) Aortic ectasia, unspecified site Mariana's thyroiditis Chronic lymphocytic thyroiditis Palpitations [facility] Diagnosis Aortic valve disorder Aortic valve disorders [facility] noteNo assessment information availableWAdena [facility] Work Phone: Evaluation note* Diagnosis Mariana's thyroiditis- Primary Chronic lymphocytic thyroiditis documented in this encounter [facility] note* Diagnosis Mariana's thyroiditis Chronic lymphocytic thyroiditis documented in this encounter [facility] note* Diagnosis Mariana's thyroiditis- Primary Chronic lymphocytic thyroiditis documented in this encounter [facility] note* Diagnosis Arthralgia, unspecified joint- Primary Mariana's thyroiditis Chronic lymphocytic thyroiditis Palpitations Muscle cramping Cramp of limb Tick bite, unspecified site, subsequent encounter Tingling of face documented in this encounter [facility] note* Diagnosis Mariana's thyroiditis Chronic lymphocytic thyroiditis documented in this encounter [facility] note* Diagnosis Myalgia- Primary Mylagia and myositis, unspecified Weight loss Loss of weight Arthralgia, unspecified joint Mariana's thyroiditis Chronic lymphocytic thyroiditis Screening for prostate cancer Special screening for malignant neoplasm of prostate Palpitations documented in this encounter [facility] note* Diagnosis Myalgia- Primary Mylagia and myositis, unspecified Mariana's thyroiditis Chronic lymphocytic thyroiditis Weight loss Loss of weight Screening for colon cancer Special screening for malignant neoplasms, colon Special screening for malignant neoplasms, colon documented in this encounter [facility] note* Diagnosis Muscle weakness of extremity- Primary Myalgia Mylagia and myositis, unspecified Generalized abdominal pain Abdominal pain, generalized Fatigue, unspecified type Acute constipation Unspecified constipation Unintentional weight change Gluten intolerance Celiac disease Lactose intolerance Intestinal disaccharidase deficiencies and disaccharide malabsorption documented in this encounter [facility] note* Diagnosis Gastritis and duodenitis- Primary Unspecified gastritis and gastroduodenitis without mention of hemorrhage Dysphagia, unspecified type documented in this encounter [facility] note* Diagnosis Onset Date Resolution Status Weight loss, unintentional a cute Hoarseness of voice chronic Throat burning chronic [facility] Work Phone: Evaluation note* Diagnosis Generalized abdominal pain- Primary Abdominal pain, generalized Unintentional weight change [facility] [place] note* Diagnosis Mariana's thyroiditis- Primary Chronic lymphocytic thyroiditis Muscle weakness of extremity Fatigue, unspecified type Celiac disease documented in this encounter [facility] [place] note* Diagnosis Mariana's thyroiditis Chronic lymphocytic [facility]itis [facility] Diagnosis Onset Date Resolution Status Ulcer of small intestine acu te Gluten intolerance chronic Weight loss, unintentional c hronic [facility] Work Phone: Evaluation note* Diagnosis Unintentional weight change Myalgia Mylagia and myositis, unspecified Muscle weakness of extremity Fatigue, unspecified type Weight loss Loss of [facility] Diagnosis Weight loss- Primary Loss of weight Generalized abdominal pain Abdominal pain, generalized Unintentional weight change [facility] Diagnosis Mariana's thyroiditis Chronic lymphocytic thyroiditis [facility] Diagnosis Well adult exam- Primary Routine general medical examination at a health care facility Palpitations Bradycardia Other specified cardiac dysrhythmias Aortic valve disorder Aortic valve disorders Mariana's thyroiditis Chronic lymphocytic thyroiditis Gluten intolerance Celiac disease Lactose intolerance Intestinal disaccharidase deficiencies and disaccharide malabsorption [facility] Diagnosis Aortic valve disorder- Primary Aortic valve disorders [facility] Diagnosis Bradycardia- Primary Other specified cardiac dysrhythmias Palpitations Aortic valve disorder Aortic valve disorders [facility] Diagnosis Myalgia- Primary Mylagia and myositis, unspecified Aortic dilatation (HCC) Aortic ectasia, unspecified site Aortic root dilation (HCC) Thoracic aortic ectasia Palpitations Moderate aortic stenosis Aortic valve disorders Bicuspid aortic valve Congenital insufficiency of aortic valve Palpitation Palpitations Bradycardia Other specified cardiac dysrhythmias Chest pain, unspecified type Celiac disease Disorder of artery or arteriole (HCC) Unspecified disorders of arteries and arterioles Pre-operative cardiovascular examination [facility] Diagnosis Myalgia Mylagia and myositis, unspecified Aortic dilatation (HCC) Aortic ectasia, unspecified site Aortic root dilation (HCC) Thoracic aortic ectasia Palpitations Moderate aortic stenosis Aortic valve disorders Bicuspid aortic valve Congenital insufficiency of aortic valve Palpitation Palpitations Bradycardia Other specified cardiac dysrhythmias Chest pain, unspecified type Celiac disease Disorder of artery or arteriole (HCC) Unspecified disorders of arteries and arterioles Pre-operative cardiovascular examination [facility] Diagnosis Moderate aortic stenosis- Primary Aortic valve disorders Bicuspid aortic valve Congenital insufficiency of aortic valve Aortic dilatation (HCC) Aortic ectasia, unspecified site Myalgia Mylagia and myositis, unspecified Palpitation Palpitations Bradycardia Other specified cardiac dysrhythmias Celiac disease Aortic root dilation (HCC) Thoracic aortic ectasia Pre-operative cardiovascular examination Nonrheumatic aortic valve stenosis Aortic valve disorders Moderate aortic stenosis Aortic valve disorders Bicuspid aortic valve Congenital insufficiency of aortic valve Aortic dilatation (HCC) Aortic ectasia, unspecified site Myalgia Mylagia and myositis, unspecified Palpitation Palpitations Bradycardia Other specified cardiac dysrhythmias Celiac disease Aortic root dilation (HCC) Thoracic aortic ectasia Pre-operative cardiovascular examination [facility] Diagnosis Encounter for preprocedural cardiovascular examination- Primary Pre-operative cardiovascular examination Nonrheumatic aortic valve stenosis Aortic valve disorders Bicuspid aortic valve Congenital insufficiency of aortic valve Aortic ectasia, thoracic (HCC) Thoracic aortic ectasia Nonrheumatic aortic valve stenosis Aortic valve disorders Moderate aortic stenosis Aortic valve disorders Bicuspid aortic valve Congenital insufficiency of aortic valve Aortic dilatation (HCC) Aortic ectasia, unspecified site Myalgia Mylagia and myositis, unspecified Palpitation Palpitations Bradycardia Other specified cardiac dysrhythmias Celiac disease Aortic root dilation (HCC) Thoracic aortic ectasia Pre-operative cardiovascular examination [facility] Diagnosis Pre-operative cardiovascular examination- Primary Moderate aortic stenosis Aortic valve disorders Bicuspid aortic valve Congenital insufficiency of aortic valve Aortic dilatation (HCC) Aortic ectasia, unspecified site Myalgia Mylagia and myositis, unspecified Palpitation Palpitations Bradycardia Other specified cardiac dysrhythmias Celiac disease Aortic root dilation (HCC) Thoracic aortic ectasia Moderate aortic stenosis Aortic valve disorders Bicuspid aortic valve Congenital insufficiency of aortic valve Aortic dilatation (HCC) Aortic ectasia, unspecified site Myalgia Mylagia and myositis, unspecified Palpitation Palpitations Bradycardia Other specified cardiac dysrhythmias Celiac disease Aortic root dilation (HCC) Thoracic aortic ectasia Pre-operative cardiovascular examination [facility] Diagnosis Moderate aortic stenosis Aortic valve disorders Bicuspid aortic valve Congenital insufficiency of aortic valve Aortic dilatation (HCC) Aortic ectasia, unspecified site Myalgia Mylagia and myositis, unspecified Palpitation Palpitations Bradycardia Other specified cardiac dysrhythmias Celiac disease Aortic root dilation (HCC) Thoracic aortic ectasia Pre-operative cardiovascular examination Moderate aortic stenosis Aortic valve disorders Bicuspid aortic valve Congenital insufficiency of aortic valve Aortic dilatation (HCC) Aortic ectasia, unspecified site Myalgia Mylagia and myositis, unspecified Palpitation Palpitations Bradycardia Other specified cardiac dysrhythmias Celiac disease Aortic root dilation (HCC) Thoracic aortic ectasia Pre-operative cardiovascular examination [facility] Diagnosis Pre-op exam- Primary Preoperative examination, unspecified Moderate aortic stenosis Aortic valve disorders Bicuspid aortic valve Congenital insufficiency of aortic valve Aortic dilatation (HCC) Aortic ectasia, unspecified site Myalgia Mylagia and myositis, unspecified Palpitation Palpitations Bradycardia Other specified cardiac dysrhythmias Celiac disease Aortic root dilation (HCC) Thoracic aortic ectasia Pre-operative cardiovascular examination [facility] Diagnosis Encounter for preoperative anesthesiology assessment for cardiac surgery- Primary Moderate aortic stenosis Aortic valve disorders Bicuspid aortic valve Congenital insufficiency of aortic valve Aortic dilatation (HCC) Aortic ectasia, unspecified site Myalgia Mylagia and myositis, unspecified Palpitation Palpitations Bradycardia Other specified cardiac dysrhythmias Celiac disease Aortic root dilation (HCC) Thoracic aortic ectasia Pre-operative cardiovascular examination [facility]* Diagnosis Transition of care performed with sharing of clinical summary- Primary Moderate aortic stenosis Aortic valve disorders Bicuspid aortic valve Congenital insufficiency of aortic valve Aortic dilatation (HCC) Aortic ectasia, unspecified site Myalgia Mylagia and myositis, unspecified Palpitation Palpitations Bradycardia Other specified cardiac dysrhythmias Celiac disease Aortic root dilation (HCC) Thoracic aortic ectasia Pre-operative cardiovascular examination Palpitations Aortic valve disorder Aortic valve disorders Mariana's thyroiditis Chronic lymphocytic thyroiditis Stress hyperglycemia Other abnormal blood chemistry Post-op pain Other acute postoperative pain Aortic valve stenosis, congenital Congenital stenosis of aortic valve ABLA (acute blood loss anemia) Post-op pain Other acute postoperative pain Mariana's thyroiditis Chronic lymphocytic thyroiditis Stress hyperglycemia Other abnormal blood chemistry Hypocalcemia Thrombocytopenia (HCC) Thrombocytopenia, unspecified Atelectasis Pulmonary collapse Fluid overload Other fluid overload PVC (premature ventricular contraction) Other premature beats Hypo-osmolality and hyponatremia Hyposmolality and/or hyponatremia Pleural effusion Unspecified pleural effusion Nonrheumatic aortic valve stenosis- Primary Aortic valve disorders documented in this encounter [facility] [place] note* Diagnosis Transition of care performed with sharing of clinical summary- Primary Moderate aortic stenosis Aortic valve disorders Bicuspid aortic valve Congenital insufficiency of aortic valve Aortic dilatation (HCC) Aortic ectasia, unspecified site Myalgia Mylagia and myositis, unspecified Palpitation Palpitations Bradycardia Other specified cardiac dysrhythmias Celiac disease Aortic root dilation (HCC) Thoracic aortic ectasia Pre-operative cardiovascular examination Palpitations Aortic valve disorder Aortic valve disorders Mariana's thyroiditis Chronic lymphocytic thyroiditis Stress hyperglycemia Other abnormal blood chemistry Post-op pain Other acute postoperative pain Aortic valve stenosis, congenital Congenital stenosis of aortic valve ABLA (acute blood loss anemia) Post-op pain Other acute postoperative pain Mariana's thyroiditis Chronic lymphocytic thyroiditis Stress hyperglycemia Other abnormal blood chemistry Hypocalcemia Thrombocytopenia (HCC) Thrombocytopenia, unspecified Atelectasis Pulmonary collapse Fluid overload Other fluid overload PVC (premature ventricular contraction) Other premature beats Hypo-osmolality and hyponatremia Hyposmolality and/or hyponatremia Pleural effusion Unspecified pleural effusion Encounter for preprocedural cardiovascular examination- Primary Pre-operative cardiovascular examination Nonrheumatic aortic valve stenosis Aortic valve disorders Bicuspid aortic valve Congenital insufficiency of aortic valve Aortic ectasia, thoracic (HCC) Thoracic aortic ectasia documented in this encounter [facility] [place] note* Diagnosis Transition of care performed with sharing of clinical summary- Primary Moderate aortic stenosis Aortic valve disorders Bicuspid aortic valve Congenital insufficiency of aortic valve Aortic dilatation (HCC) Aortic ectasia, unspecified site Myalgia Mylagia and myositis, unspecified Palpitation Palpitations Bradycardia Other specified cardiac dysrhythmias Celiac disease Aortic root dilation (HCC) Thoracic aortic ectasia Pre-operative cardiovascular examination Palpitations Aortic valve disorder Aortic valve disorders Mariana's thyroiditis Chronic lymphocytic thyroiditis Stress hyperglycemia Other abnormal blood chemistry Post-op pain Other acute postoperative pain Aortic valve stenosis, congenital Congenital stenosis of aortic valve ABLA (acute blood loss anemia) Post-op pain Other acute postoperative pain Mariana's thyroiditis Chronic lymphocytic thyroiditis Stress hyperglycemia Other abnormal blood chemistry Hypocalcemia Thrombocytopenia (HCC) Thrombocytopenia, unspecified Atelectasis Pulmonary collapse Fluid overload Other fluid overload PVC (premature ventricular contraction) Other premature beats Hypo-osmolality and hyponatremia Hyposmolality and/or hyponatremia Pleural effusion Unspecified pleural effusion Bicuspid aortic valve- Primary Congenital insufficiency of aortic valve [facility] Diagnosis Transition of care performed with sharing of clinical summary- Primary Moderate aortic stenosis Aortic valve disorders Bicuspid aortic valve Congenital insufficiency of aortic valve Aortic dilatation (HCC) Aortic ectasia, unspecified site Myalgia Mylagia and myositis, unspecified Palpitation Palpitations Bradycardia Other specified cardiac dysrhythmias Celiac disease Aortic root dilation (HCC) Thoracic aortic ectasia Pre-operative cardiovascular examination Palpitations Aortic valve disorder Aortic valve disorders Mariana's thyroiditis Chronic lymphocytic thyroiditis Stress hyperglycemia Other abnormal blood chemistry Post-op pain Other acute postoperative pain Aortic valve stenosis, congenital Congenital stenosis of aortic valve ABLA (acute blood loss anemia) Post-op pain Other acute postoperative pain Mariana's thyroiditis Chronic lymphocytic thyroiditis Stress hyperglycemia Other abnormal blood chemistry Hypocalcemia Thrombocytopenia (HCC) Thrombocytopenia, unspecified Atelectasis Pulmonary collapse Fluid overload Other fluid overload PVC (premature ventricular contraction) Other premature beats Hypo-osmolality and hyponatremia Hyposmolality and/or hyponatremia Pleural effusion Unspecified pleural effusion Status post cardiac surgery- Primary [facility] Diagnosis Transition of care performed with sharing of clinical summary- Primary Moderate aortic stenosis Aortic valve disorders Bicuspid aortic valve Congenital insufficiency of aortic valve Aortic dilatation (HCC) Aortic ectasia, unspecified site Myalgia Mylagia and myositis, unspecified Palpitation Palpitations Bradycardia Other specified cardiac dysrhythmias Celiac disease Aortic root dilation (HCC) Thoracic aortic ectasia Pre-operative cardiovascular examination Palpitations Aortic valve disorder Aortic valve disorders Mariana's thyroiditis Chronic lymphocytic thyroiditis Stress hyperglycemia Other abnormal blood chemistry Post-op pain Other acute postoperative pain Aortic valve stenosis, congenital Congenital stenosis of aortic valve ABLA (acute blood loss anemia) Post-op pain Other acute postoperative pain Mariana's thyroiditis Chronic lymphocytic thyroiditis Stress hyperglycemia Other abnormal blood chemistry Hypocalcemia Thrombocytopenia (HCC) Thrombocytopenia, unspecified Atelectasis Pulmonary collapse Fluid overload Other fluid overload PVC (premature ventricular contraction) Other premature beats Hypo-osmolality and hyponatremia Hyposmolality and/or hyponatremia Pleural effusion Unspecified pleural effusion Mariana's thyroiditis- Primary Chronic lymphocytic thyroiditis [facility] Diagnosis Mariana's thyroiditis Chronic lymphocytic thyroiditis documented in this encounter [facility] [place] note* Diagnosis Transition of care performed with sharing of clinical summary- Primary Moderate aortic stenosis Aortic valve disorders Bicuspid aortic valve Congenital insufficiency of aortic valve Aortic dilatation (HCC) Aortic ectasia, unspecified site Myalgia Mylagia and myositis, unspecified Palpitation Palpitations Bradycardia Other specified cardiac dysrhythmias Celiac disease Aortic root dilation (HCC) Thoracic aortic ectasia Pre-operative cardiovascular examination Palpitations Aortic valve disorder Aortic valve disorders Mariana's thyroiditis Chronic lymphocytic thyroiditis Stress hyperglycemia Other abnormal blood chemistry Post-op pain Other acute postoperative pain Aortic valve stenosis, congenital Congenital stenosis of aortic valve ABLA (acute blood loss anemia) Post-op pain Other acute postoperative pain Mariana's thyroiditis Chronic lymphocytic thyroiditis Stress hyperglycemia Other abnormal blood chemistry Hypocalcemia Thrombocytopenia (HCC) Thrombocytopenia, unspecified Atelectasis Pulmonary collapse Fluid overload Other fluid overload PVC (premature ventricular contraction) Other premature beats Hypo-osmolality and hyponatremia Hyposmolality and/or hyponatremia Pleural effusion Unspecified pleural effusion Mariana's thyroiditis Chronic lymphocytic thyroiditis [facility] Diagnosis Transition of care performed with sharing of clinical summary- Primary Moderate aortic stenosis Aortic valve disorders Bicuspid aortic valve Congenital insufficiency of aortic valve Aortic dilatation Aortic ectasia, unspecified site Myalgia Mylagia and myositis, unspecified Palpitation Palpitations Bradycardia Other specified cardiac dysrhythmias Celiac disease (HCC) Celiac disease Aortic root dilation Thoracic aortic ectasia Pre-operative cardiovascular examination Palpitations Aortic valve disorder Aortic valve disorders Mariana's thyroiditis Chronic lymphocytic thyroiditis Stress hyperglycemia Other abnormal blood chemistry Post-op pain Other acute postoperative pain Aortic valve stenosis, congenital (HCC) Congenital stenosis of aortic valve ABLA (acute blood loss anemia) Post-op pain Other acute postoperative pain Mariana's thyroiditis Chronic lymphocytic thyroiditis Stress hyperglycemia Other abnormal blood chemistry Hypocalcemia Thrombocytopenia Thrombocytopenia, unspecified Atelectasis Pulmonary collapse Fluid overload Other fluid overload PVC (premature ventricular contraction) Other premature beats Hypo-osmolality and hyponatremia Hyposmolality and/or hyponatremia Pleural effusion Unspecified pleural effusion Double vision with both eyes open- Primary Diplopia 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 Headaches Leg cramping Cramp of limb [facility] Diagnosis Transition of care performed with sharing of clinical summary- Primary Moderate aortic stenosis Aortic valve disorders Bicuspid aortic valve Congenital insufficiency of aortic valve Aortic dilatation Aortic ectasia, unspecified site Myalgia Mylagia and myositis, unspecified Palpitation Palpitations Bradycardia Other specified cardiac dysrhythmias Celiac disease (HCC) Celiac disease Aortic root dilation Thoracic aortic ectasia Pre-operative cardiovascular examination Palpitations Aortic valve disorder Aortic valve disorders Mariana's thyroiditis Chronic lymphocytic thyroiditis Stress hyperglycemia Other abnormal blood chemistry Post-op pain Other acute postoperative pain Aortic valve stenosis, congenital (HCC) Congenital stenosis of aortic valve ABLA (acute blood loss anemia) Post-op pain Other acute postoperative pain Mariana's thyroiditis Chronic lymphocytic thyroiditis Stress hyperglycemia Other abnormal blood chemistry Hypocalcemia Thrombocytopenia Thrombocytopenia, unspecified Atelectasis Pulmonary collapse Fluid overload Other fluid overload PVC (premature ventricular contraction) Other premature beats Hypo-osmolality and hyponatremia Hyposmolality and/or hyponatremia Pleural effusion Unspecified pleural effusion Mariana's thyroiditis- Primary Chronic lymphocytic thyroiditis [facility] Diagnosis Transition of care performed with sharing of clinical summary- Primary Moderate aortic stenosis Aortic valve disorders Bicuspid aortic valve Congenital insufficiency of aortic valve Aortic dilatation Aortic ectasia, unspecified site Myalgia Mylagia and myositis, unspecified Palpitation Palpitations Bradycardia Other specified cardiac dysrhythmias Celiac disease (HCC) Celiac disease Aortic root dilation Thoracic aortic ectasia Pre-operative cardiovascular examination Palpitations Aortic valve disorder Aortic valve disorders Mariana's thyroiditis Chronic lymphocytic thyroiditis Stress hyperglycemia Other abnormal blood chemistry Post-op pain Other acute postoperative pain Aortic valve stenosis, congenital (HCC) Congenital stenosis of aortic valve ABLA (acute blood loss anemia) Post-op pain Other acute postoperative pain Mariana's thyroiditis Chronic lymphocytic thyroiditis Stress hyperglycemia Other abnormal blood chemistry Hypocalcemia Thrombocytopenia Thrombocytopenia, unspecified Atelectasis Pulmonary collapse Fluid overload Other fluid overload PVC (premature ventricular contraction) Other premature beats Hypo-osmolality and hyponatremia Hyposmolality and/or hyponatremia Pleural effusion Unspecified pleural effusion Double vision with both eyes open Diplopia 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 Headaches Leg cramping Cramp of limb [facility] Diagnosis Transition of care performed with sharing of clinical summary- Primary Moderate aortic stenosis Aortic valve disorders Bicuspid aortic valve Congenital insufficiency of aortic valve Aortic dilatation Aortic ectasia, unspecified site Myalgia Mylagia and myositis, unspecified Palpitation Palpitations Bradycardia Other specified cardiac dysrhythmias Celiac disease (HCC) Celiac disease Aortic root dilation Thoracic aortic ectasia Pre-operative cardiovascular examination Palpitations Aortic valve disorder Aortic valve disorders Mariana's thyroiditis Chronic lymphocytic thyroiditis Stress hyperglycemia Other abnormal blood chemistry Post-op pain Other acute postoperative pain Aortic valve stenosis, congenital (HCC) Congenital stenosis of aortic valve ABLA (acute blood loss anemia) Post-op pain Other acute postoperative pain Mariana's thyroiditis Chronic lymphocytic thyroiditis Stress hyperglycemia Other abnormal blood chemistry Hypocalcemia Thrombocytopenia Thrombocytopenia, unspecified Atelectasis Pulmonary collapse Fluid overload Other fluid overload PVC (premature ventricular contraction) Other premature beats Hypo-osmolality and hyponatremia Hyposmolality and/or hyponatremia Pleural effusion Unspecified pleural effusion Mariana's thyroiditis Chronic lymphocytic thyroiditis [facility] Diagnosis Transition of care performed with sharing of clinical summary- Primary Moderate aortic stenosis Aortic valve disorders Bicuspid aortic valve (HCC) Congenital insufficiency of aortic valve Aortic dilatation Aortic ectasia, unspecified site Myalgia Mylagia and myositis, unspecified Palpitation Palpitations Bradycardia Other specified cardiac dysrhythmias Celiac disease (HCC) Celiac disease Aortic root dilation Thoracic aortic ectasia Pre-operative cardiovascular examination Palpitations Aortic valve disorder Aortic valve disorders Mariana's thyroiditis Chronic lymphocytic thyroiditis Stress hyperglycemia Other abnormal blood chemistry Post-op pain Other acute postoperative pain Aortic valve stenosis, congenital (HCC) Congenital stenosis of aortic valve ABLA (acute blood loss anemia) Post-op pain Other acute postoperative pain Mariana's thyroiditis Chronic lymphocytic thyroiditis Stress hyperglycemia Other abnormal blood chemistry Hypocalcemia Thrombocytopenia Thrombocytopenia, unspecified Atelectasis Pulmonary collapse Fluid overload Other fluid overload PVC (premature ventricular contraction) Other premature beats Hypo-osmolality and hyponatremia Hyposmolality and/or hyponatremia Pleural effusion Unspecified pleural effusion Fatigue, unspecified type- Primary Vitamin D deficiency Unspecified vitamin D deficiency Hypothyroidism, acquired Unspecified hypothyroidism [facility] Diagnosis Transition of care performed with sharing of clinical summary- Primary Moderate aortic stenosis Aortic valve disorders Bicuspid aortic valve (HCC) Congenital insufficiency of aortic valve Aortic dilatation Aortic ectasia, unspecified site Myalgia Mylagia and myositis, unspecified Palpitation Palpitations Bradycardia Other specified cardiac dysrhythmias Celiac disease (HCC) Celiac disease Aortic root dilation Thoracic aortic ectasia Pre-operative cardiovascular examination Palpitations Aortic valve disorder Aortic valve disorders Mariana's thyroiditis Chronic lymphocytic thyroiditis Stress hyperglycemia Other abnormal blood chemistry Post-op pain Other acute postoperative pain Aortic valve stenosis, congenital (HCC) Congenital stenosis of aortic valve ABLA (acute blood loss anemia) Post-op pain Other acute postoperative pain Mariana's thyroiditis Chronic lymphocytic thyroiditis Stress hyperglycemia Other abnormal blood chemistry Hypocalcemia Thrombocytopenia Thrombocytopenia, unspecified Atelectasis Pulmonary collapse Fluid overload Other fluid overload PVC (premature ventricular contraction) Other premature beats Hypo-osmolality and hyponatremia Hyposmolality and/or hyponatremia Pleural effusion Unspecified pleural effusion Hypothyroidism, acquired- Primary Unspecified hypothyroidism Mariana's thyroiditis Chronic lymphocytic thyroiditis [facility] Transition of care performed with sharing of clinical summary- Primary Moderate aortic stenosis Aortic valve disorders Bicuspid aortic valve (HCC) Congenital insufficiency of aortic valve Aortic dilatation Aortic ectasia, unspecified site Myalgia Mylagia and myositis, unspecified Palpitation Palpitations Bradycardia Other specified cardiac dysrhythmias Celiac disease (HCC) Celiac disease Aortic root dilation Thoracic aortic ectasia Pre-operative cardiovascular examination Palpitations Aortic valve disorder Aortic valve disorders Mariana's thyroiditis Chronic lymphocytic thyroiditis Stress hyperglycemia Other abnormal blood chemistry Post-op pain Other acute postoperative pain Aortic valve stenosis, congenital (HCC) Congenital stenosis of aortic valve ABLA (acute blood loss anemia) Post-op pain Other acute postoperative pain Mariana's thyroiditis Chronic lymphocytic thyroiditis Stress hyperglycemia Other abnormal blood chemistry Hypocalcemia Thrombocytopenia Thrombocytopenia, unspecified Atelectasis Pulmonary collapse Fluid overload Other fluid overload PVC (premature ventricular contraction) Other premature beats Hypo-osmolality and hyponatremia Hyposmolality and/or hyponatremia Pleural effusion Unspecified pleural effusion Screening for prostate cancer- Primary Special screening for malignant neoplasm of prostate documented in this encounter [facility] Discharge instructions Additional Instructions Your test results were good. Both heart enzymes were normal. Your CAT scan of your chest showed a 4.5 cm aortic aneurysm. No dissection. No bleeding. No blood clot.[facility] Work Phone: Reason for referral (narrative)* Diagnostic Procedure Only (Routine) - Closed Specialty Diagnoses / Procedures Referred By Lilli gonzáles Referred To Contact US IMAGING Diagnoses Mariana's thyroiditis Procedures US THYROID/PARATHYROID US SOFT TISSUE HEAD & NECK REAL TIME IMGE DOCM Alverto Ceja, DO [address] [place] [address] Us Imaging Referral ID Status Reason Start Date Expiration Date V isits Requested Visits Authorized [id number] Closed Auto-Generate d Referral 06/15/2022 07/15/2023 [address] [facility] for referral (narrative)* Outpatient Procedure (Routine) - Authorized Specialty Diagnoses / Procedures Referred By Contac t Referred To Contact [facility] [place] Diagnoses Aortic valve disorder Procedures ECHO ECHO TTHRC R-T 2D W/WOM-MODE COMPL SPEC&COLR D Alverto Ceja, DO [address] [place] [address] [facility] [address] [place] [address] Referral ID Status Reason Start Date Expiration Date Visits Requested Visits Authorized [id number] Authorized Auto-Generat ed Referral 06/24/2022 06/24/2023 [address] [facility] for referral (narrative)* Outpatient Procedure (Routine) - Closed Specialty Diagnoses / Procedures Referred By Contac t Referred To Contact [facility] Diagnoses Aortic valve disorder Procedures ECHO ECHO TTHRC R-T 2D W/WOM-MODE COMPL SPEC&COLR D Alverto Ceja, DO [address] [place] [address] [facility] [address] [place] [address] Referral ID Status Reason Start Date Expiration Date V isits Requested Visits Authorized [id number] Closed Auto-Generate d Referral 06/24/2022 06/24/2023 [address] [facility] for referral (narrative)* Outpatient Procedure (Routine) - Authorized Specialty Diagnoses / Procedures Referred By Contac t Referred To Contact [facility] Diagnoses Screening for colon cancer Procedures COLONOSCOPY SCREENING COLONOSCOPY FLX DX W/COLLJ SPEC WHEN PFRMD Alverto Ceja DO [address] [place] [address] [facility] [place] [address] [place] [address] Referral ID Status Reason Start Date Expiration Date Visits Requested Visits Authorized [id number] Authorized Auto-Generat ed Referral 01/02/2023 01/02/2024 1 1 * Consult, Test, Treat (Routine) - Pending Review Specialty Diagnoses / Procedures Referred By Contac t Referred To Contact Gastroenterology Diagnoses Weight loss Myalgia Procedures CONSULT TO GASTROENTEROLOGY OFFICE/OUTPATIENT NEW HIGH MDM 60-74 MINUTES Dari Payton APRN.CNP [address] [place] [address] Referral ID Status Reason Start Date Expiration Date Visits Requested Visits Authorized [id number] Pending Review PCP Requested Referral 12/30/2022 12/30/2023 [address] [facility] for referral (narrative)* Outpatient Procedure (Routine) - Closed Specialty Diagnoses / Procedures Referred By Silvinoac t Referred To Contact [facility] Diagnoses Generalized abdominal pain Unintentional weight change Procedures EGD DIAGNOSTIC ESOPHAGOGASTRODUODENOS COPY TRANSORAL DIAGNOSTIC Alverto Ceja DO [address] [place] [address] [facility] [place] [address] [place] [address] Referral ID Status Reason Start Date Expiration Date V isits Requested Visits Authorized [id number] Closed Auto-Generate d Referral 02/24/2023 02/25/2024 [address] [facility] for referral (narrative)* Outpatient Procedure (Routine) - New Request Specialty Diagnoses / Procedures Referred By Contac t Referred [facility] Diagnoses Palpitations Bradycardia Aortic valve disorder Procedures ECG COMPLETE ECG ROUTINE ECG W/LEAST 12 LDS W/I&R Alverto Ceja DO [address] [place] [address] [address] Referral ID Status Reason Start Date Expiration Date Visits Requested Visits Authorized [id number] New Request Auto-Generat ed Referral 05/29/2024 05/29/2025 1 1 * Outpatient Procedure (Routine) - Authorized Specialty Diagnoses / Procedures Referred By Contac t Referred To Contact [facility] Diagnoses Palpitations Bradycardia Aortic valve disorder Procedures ECHO ECHO TTHRC R-T 2D W/WOM-MODE COMPL SPEC&COLR D Alverto Ceja DO [address] [place] [address] [address] Referral ID Status Reason Start Date Expiration Date Visits Requested Visits Authorized [id number] Authorized Auto-Generat ed Referral 05/29/2024 05/29/2025 [address] [facility] for referral (narrative)* Outpatient Procedure (Routine) - New Request Specialty Diagnoses / Procedures Referred By Contac t Referred To Contact [facility] Diagnoses Aortic valve disorder Procedures ECHO ECHO TTHRC R-T 2D W/WOM-MODE COMPL SPEC&COLR Rudolph Fitzgerald MD [address] [place] [phone] [place] [id number] Referral ID Status Reason Start Date Expiration Date Visits Requested Visits Authorized [id number] New Request Auto-Generat ed Referral 06/11/2024 06/11/2025 1 1 * Outpatient Procedure (Routine) - New Request Specialty Diagnoses / Procedures Referred By Contac t Referred To Contact [facility] [place] Diagnoses Aortic valve disorder Procedures ECG COMPLETE ECG ROUTINE ECG W/LEAST 12 LDS W/I&R Rudolph Garcia MD [address] [place] [address] [facility] [place] [address] [place] [address] Referral ID Status Reason Start Date Expiration Date Visits Requested Visits Authorized [id number] New Request Auto-Generat ed Referral 06/11/2024 06/11/2025 [address] [facility] for referral (narrative)* Outpatient Procedure (Routine) - New Request Specialty Diagnoses / Procedures Referred By Lilli gonzáles Referred To Contact [facility] [place] Diagnoses Moderate aortic stenosis Bicuspid aortic valve Aortic dilatation (HCC) Myalgia Palpitation Bradycardia Celiac disease Aortic root dilation (HCC) Pre-operative cardiovascular examination Procedures LUNG DIFFUSION CAPACITY (DLCO) DIFFUSING CAPACITY Thomas Montalvo MD [address] [place] [address] [facility] [place] [id number] Referral ID Status Reason Start Date Expiration Date Visits Requested Visits Authorized [id number] New Request Auto-Generat ed Referral 06/26/2024 07/26/2025 1 1 * Outpatient Procedure (Routine) - New Request Specialty Diagnoses / Procedures Referred By Lilli gonzáles Referred To Contact [facility] [place] Diagnoses Moderate aortic stenosis Bicuspid aortic valve Aortic dilatation (HCC) Myalgia Palpitation Bradycardia Celiac disease Aortic root dilation (HCC) Pre-operative cardiovascular examination Procedures SPIROMETRY BASELINE ONLY SPMTRY W/VC EXPIRATORY CANDACE W/WO MXML VOL VNTJ Thomas Montalvo MD [address] [place] [address] [place] [address] Referral ID Status Reason Start Date Expiration Date Visits Requested Visits Authorized [id number] New Request Auto-Generat ed Referral 06/26/2024 07/26/2025 1 1 * Outpatient Procedure (Routine) - New Request Specialty Diagnoses / Procedures Referred By Contac t Referred To Contact [facility] [place] Diagnoses Moderate aortic stenosis Bicuspid aortic valve Aortic dilatation (HCC) Myalgia Palpitation Bradycardia Celiac disease Aortic root dilation (HCC) Pre-operative cardiovascular examination Procedures US CAROTID ARTERIES YANY VAS LAB DUPLEX SCAN EXTRACRANIAL ART COMPL BI STUDY Thomas Montalvo MD [address] [place] [address] [place] [address] Referral ID Status Reason Start Date Expiration Date Visits Requested Visits Authorized [id number] New Request Auto-Generat ed Referral 06/26/2024 06/26/2025 1 1 * Consult, Test, Treat (Routine) - Authorized Specialty Diagnoses / Procedures Referred By Lilli t Referred To Contact Cardiac Surg Diagnoses Moderate aortic stenosis Bicuspid aortic valve Aortic dilatation (HCC) Myalgia Palpitation Bradycardia Celiac disease Aortic root dilation (HCC) Pre-operative cardiovascular examination Procedures CARDIOTHORACIC PREOP EVALUATION OFFICE/OUTPATIENT [facility] HIGH MDM 60 MINUTES Thomas Montalvo MD [address] [place] [address] Referral ID Status Reason Start Date Expiration Date Visits Requested Visits Authorized [id number] Authorized PCP Requested Referral 06/26/2024 06/26/2025 [address] [facility] for referral (narrative)* Outpatient Procedure (Routine) - Authorized Specialty Diagnoses / Procedures Referred By Contac t Referred To Contact [facility] [place] Diagnoses Nonrheumatic aortic valve stenosis Procedures ECG COMPLETE ECG ROUTINE ECG W/LEAST 12 LDS W/I&R Karolina Jonas MD, PhD [address] [place] [address] Formerly Named [facility] [address] [address] Referral ID Status Reason Start Date Expiration Date Visits Requested Visits Authorized [id number] Authorized Auto-Generat ed Referral 07/09/2024 07/09/2025 [address] [facility] for referral (narrative)* Outpatient Procedure (Routine) - Authorized Specialty Diagnoses / Procedures Referred By Silvinoac t Referred To Contact [facility] Diagnoses Encounter for preprocedural cardiovascular examination Nonrheumatic aortic valve stenosis Bicuspid aortic valve Aortic ectasia, thoracic (HCC) Procedures ECG COMPLETE ECG ROUTINE ECG W/LEAST 12 LDS W/I&R Karolina Jonas MD, PhD [address] [place] [address] [address] Referral ID Status Reason Start Date Expiration Date Visits Requested Visits Authorized [id number] Authorized Auto-Generat ed Referral 07/10/2024 07/10/2025 [address] [facility] for referral (narrative)* Outpatient Procedure (Routine) - Authorized Specialty Diagnoses / Procedures Referred By Lilli t Referred To Contact [facility] Diagnoses Bicuspid aortic valve Procedures ECHO ECHO TTHRC R-T 2D W/WOM-MODE COMPL SPEC&COLR Karolina Crespo MD, PhD [address] [place] [address] [address] Referral ID Status Reason Start Date Expiration Date Visits Requested Visits Authorized [id number] Authorized Auto-Generat ed Referral 07/11/2024 07/11/2025 [address] [facility] for visit Narrative* Outpatient Procedure (Routine) - Closed Specialty Diagnoses / Procedures Referred By Lilli t Referred To Contact [facility] Diagnoses Aortic valve disorder Procedures ECHO ECHO TTHRC R-T 2D W/WOM-MODE COMPL SPEC&COLR D Alverto Ceja, DO [address] [place] [address] [facility] [place] [address] [place] [address] Referral ID Status Reason Start Date Expiration Date V isits Requested Visits Authorized [id number] Closed Auto-Generate d Referral 06/24/2022 06/24/2023 [address] [facility] for visit Narrative* Outpatient Procedure (Routine) - Closed Specialty Diagnoses / Procedures Referred By Lilli gonzáles Referred To Contact [facility] Diagnoses Generalized abdominal pain Unintentional weight change Procedures EGD DIAGNOSTIC ESOPHAGOGASTRODUODENOS COPY TRANSORAL DIAGNOSTIC Alverto Ceja, DO [address] [place] [address] [facility] [place] [address] [place] [address] Referral ID Status Reason Start Date Expiration Date V isits Requested Visits Authorized [id number] Closed Auto-Generate d Referral 02/24/2023 02/25/2024 [address] [facility] for visit Narrative* MRI/CT (Routine) - Closed Specialty Diagnoses / Procedures Referred By Lilli gonzáles Referred To Contact MR IMAGING Diagnoses Double vision with both eyes open 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 Headaches Leg cramping Procedures MRI BRAIN WO IVCON MRI BRAIN BRAIN STEM W/O CONTRAST MATERIAL Rosa Henson, [employer] [address] [place] [address] Phone: tel: fax: MR IMAGING [facility] [place] [facility] Referral ID Status Reason Start Date Expiration Date V isits Requested Visits Authorized [id number] Closed Auto-Generate d Referral 02/05/2025 11/05/2025 1 1 [facility] Summary Purpose Family History Relationship Condition Age at Onset Recorded Date/T veronica father Asthma Unknown Cardiac disease Unknown Hypertension Unknown Disorder of thyroid Unknown sister Malignant neoplasm Unknown Relationship Condition Age at Onset Recorded Date/T veronica father Asthma Unknown Cardiac disease Unknown Hypertension Unknown Disorder of thyroid Unknown sister Malignant neoplasm Unknown uncle Malignant neoplasm of throat Unknown mother Cardiac disease Unknown Pulmonary emphysema Unknown Advance Directives Advance Directive Response Recorded Date/ Time Living Will Yes July 02 2:00am Power of Cut Out Machine Operator Yes July 02 2:00am Name of Medical Power of Cut Out Machine Operator COMPA KIM July 02, 2022 2:00am Advance Directive Response Recorded Date/ Time Name of Medical Power of Cut Out Machine Operator COMPA KIM July 02, 2022 2:00am Living Will No July 02 2 3:07pm Power of Cut Out Machine Operator No July 02 2 022 3:07pm Advance Directive Response Recorded Date/ Time Living Will No July 02 2 3:07pm Power of Cut Out Machine Operator No July 02, 2 022 3:07pm Chief Complaint and Reason for Visit Chief Complaint CHEST PAIN Chief Complaint CHEST PAIN LABS Chief Complaint WT LOSS Chief Complaint WT LOSS Consult Reason for Visit Weight loss, uninten tional Hoarseness of voice Throat burning Chief Complaint WT LOSS Consult cap endo E ORDERS E-ORDER Reason for Visit Weight loss, uninten tional Hoarseness of voice Throat burning Chief Complaint 3 MO FU INT LABS Reason for Visit Ulcer of small intes darwin Gluten intolerance Weight loss, unintentional Reason for Referral Specialty Diagnoses / Procedures Referred By Lilli gonzáles Referred To Contact Nutrition Diagnoses Muscle weakness of extremity Myalgia Generalized abdominal pain Fatigue, unspecified type Unintentional weight change Gluten intolerance Lactose intolerance Procedures CONSULT TO NUTRITION THERAPY MEDICAL NUTRITION ASSMT&IVNTJ INDIV EACH 15 [place] MEDICAL NUTRITION ASSMT&IVNTJ INDIV EACH 15 [place] MEDICAL NUTRITION ASSMT&IVNTJ INDIV EACH 15 [place] MEDICAL NUTRITION ASSMT&IVNTJ INDIV EACH 15 [place] Alverto Ceja, DO [address] [place] [address] Referral ID Status Reason Start Date Expiration Date Visits Requested Visits Authorized [id number] Pending Review PCP Requested Referral 02/21/2023 02/21/2024 1 1 Specialty Diagnoses / Procedures Referred By Lilli gonzáles Referred To Contact [facility] Diagnoses Generalized abdominal pain Acute constipation Unintentional weight change Procedures CAPSULE ENDOSCOPY SMALL BOWEL GI TRC IMG INTRALUMINAL ESOPHAGUS-ILEUM W/I&R Alverto Ceja L, DO [address] [place] [address] [facility] [place] [address] [place] [address] Referral ID Status Reason Start Date Expiration Date Visits Requested Visits Authorized [id number] Pending Review Auto-Generat ed Referral 02/21/2023 02/22/2024 1 1 Specialty Diagnoses / Procedures Referred By Contac t Referred To Contact General Surgery Diagnoses Generalized abdominal pain Unintentional weight change Procedures CONSULT TO GENERAL SURGERY OFFICE/OUTPATIENT [facility] 60-74 MINUTES Alverto Ceja, DO [address] [place] [address] Referral ID Status Reason Start Date Expiration Date Visits Requested Visits Authorized [id number] Pending Review PCP Requested Referral 02/24/2023 02/24/2024 1 1 Specialty Diagnoses / Procedures Referred By Contac t Referred To Contact [facility] Diagnoses Generalized abdominal pain Unintentional weight change Procedures EGD DIAGNOSTIC ESOPHAGOGASTRODUODENOS COPY TRANSORAL DIAGNOSTIC Alverto Ceja, DO [address] [place] [address] [facility] [place] [address] [place] [address] Referral ID Status Reason Start Date Expiration Date V isits Requested Visits Authorized [id number] Closed Auto-Generate d Referral 02/24/2023 02/25/2024 1 1 Specialty Diagnoses / Procedures Referred By Contac t Referred To Contact MR IMAGING Diagnoses Unintentional weight change Myalgia Muscle weakness of extremity Fatigue, unspecified type Weight loss Procedures MRI BRAIN WO/W IVCON MRI BRAIN BRAIN STEM W/O W/CONTRAST MATERIAL Alverto Ceja, DO [address] [place] [address] Mr Imaging [facility] [place] [facility] Referral ID Status Reason Start Date Expiration Date V isits Requested Visits Authorized [id number] Closed Auto-Generate d Referral 03/27/2023 11/05/2023 1 1 Specialty Diagnoses / Procedures Referred By Contac t Referred To Contact Cardiology Diagnoses Bradycardia Palpitations Aortic valve disorder Procedures CONSULT TO CARDIOLOGY OFFICE/OUTPATIENT [facility] 60 MINUTES Alverto Ceja, DO [address] [place] [address] Referral ID Status Reason Start Date Expiration Date Visits Requested Visits Authorized [id number] Authorized PCP Requested Referral 06/11/2024 06/11/2025 1 1 Specialty Diagnoses / Procedures Referred By Contac t Referred To Contact Cardiac Surg Diagnoses Myalgia Aortic dilatation (HCC) Aortic root dilation (HCC) Palpitations Moderate aortic stenosis Bicuspid aortic valve Palpitation Bradycardia Chest pain, unspecified type Celiac disease Disorder of artery or arteriole (HCC) Pre-operative cardiovascular examination Procedures CARDIOTHORACIC PREOP EVALUATION OFFICE/OUTPATIENT [facility] 60 MINUTES Thomas Montalvo MD [address] [place], [place] [id number] Referral ID Status Reason Start Date Expiration Date Visits Requested Visits Authorized [id number] Authorized PCP Requested Referral 06/14/2024 06/14/2025 1 1 Specialty Diagnoses / Procedures Referred By Lilli gonzáles Referred To Contact Cardiology Diagnoses Myalgia Aortic dilatation (HCC) Aortic root dilation (HCC) Palpitations Moderate aortic stenosis Bicuspid aortic valve Palpitation Bradycardia Chest pain, unspecified type Celiac disease Disorder of artery or arteriole (HCC) Pre-operative cardiovascular examination Procedures CONSULT TO CARDIOLOGY OFFICE/OUTPATIENT [facility] 60 MINUTES Thomas Montalvo MD [address] [place] [address] Referral ID Status Reason Start Date Expiration Date Visits Requested Visits Authorized [id number] Authorized PCP Requested Referral 06/14/2024 06/14/2025 1 1 Specialty Diagnoses / Procedures Referred By Lilli gonzáles Referred [facility] Diagnoses Myalgia Aortic dilatation (HCC) Aortic root dilation (HCC) Palpitations Moderate aortic stenosis Bicuspid aortic valve Palpitation Bradycardia Chest pain, unspecified type Celiac disease Disorder of artery or arteriole (HCC) Pre-operative cardiovascular examination Procedures ECHO ECHO TTHRC R-T 2D W/WOM-MODE COMPL SPEC&COLR D Thomas Montalvo MD [address] [place], [place] [id number] [facility] [place] [address] [place] [address] Referral ID Status Reason Start Date Expiration Date Visits Requested Visits Authorized [id number] New Request Auto-Generat ed Referral 06/14/2024 06/14/2025 1 1 Specialty Diagnoses / Procedures Referred By Lilli gonzáles Referred To Contact CT IMAGING Diagnoses Myalgia Aortic dilatation (HCC) Aortic root dilation (HCC) Palpitations Moderate aortic stenosis Bicuspid aortic valve Palpitation Bradycardia Chest pain, unspecified type Celiac disease Disorder of artery or arteriole (HCC) Pre-operative cardiovascular examination Procedures CTA CHEST (GATED) W IVCON CT ANGIOGRAPHY CHEST W/CONTRAST/NONCONTRAST Thomas Montalvo MD [address] [id number] [facility] [place] [address] Referral ID Status Reason Start Date Expiration Date V isits Requested Visits Authorized [id number] Open Auto-Generate d Referral 06/14/2024 07/14/2025 1 1 Specialty Diagnoses / Procedures Referred By Contac t Referred To Contact [facility] [place] Procedures CARDIOVASCULAR MEDICINE OP FOLLOW UP APPT ORDER Karolina Jonas MD, PhD [address] [place] [address] [place] [address] Referral ID Status Reason Start Date Expiration Date Visits Requested Visits Authorized [id number] Ref Not Required PCP Requested Referral 06/30/2024 06/30/2025 1 1 Specialty Diagnoses / Procedures Referred By Contac t Referred To Contact CT IMAGING Diagnoses Encounter for preprocedural cardiovascular examination Procedures CTA CHEST (GATED) W IVCON CT ANGIOGRAPHY CHEST W/CONTRAST/NONCONTRAST Karolina Jonas MD, PhD [address] [phone] [facility] [place] [address] Referral ID Status Reason Start Date Expiration Date Visits Requested Visits Authorized [id number] New Request Auto-Generat ed Referral 06/24/2024 07/24/2025 1 1 Medications Administered Section Inactive Administered Medications - up to 3 most recent administrations Medication Order MAR Action Action Date Dose Rate Site benzocaine 20% 1 [place] (TOPEX) 1 [place], TOPICAL, DIRECTED, Starting on Mon03/06/23 at 1030, Until Mon03/06/23 at 1429, DOSING DIRECTED BY PHYSICIAN FOR PROCEDURAL SEDATION ONLY - Pharmaceutical Waste: Aerosol -, Intraprocedure Given 03/06/2023 10:22 AM EDT 5 Sprays diphenhydrAMINE 12.5-50 mg injection (BENADRYL) 12.5-50 mg, INTRAVENOUS, DIRECTED, Starting on Mon03/06/23 at 1030, Until Mon03/06/23 at 1429, DOSING DIRECTED BY PHYSICIAN FOR PROCEDURAL SEDATION ONLY, Intraprocedure Given 03/06/2023 10:26 AM EDT 50 mg fentaNYL 50 mcg/mL 25-100 mcg injection (SUBLIMAZE) 25-100 mcg, INTRAVENOUS, DIRECTED, Starting on Mon03/06/23 at 1030, Until Mon03/06/23 at 1429, DOSING DIRECTED BY PHYSICIAN FOR PROCEDURAL SEDATION ONLY, Intraprocedure Given 03/06/2023 10:28 AM EDT 50 mcg Given 03/06/2023 10:24 AM EDT 50 mcg lactated ringers iv infusion 30 mL/hr, INTRAVENOUS, CONTINUOUS, Starting on Mon03/06/23 at 1000, Until Mon03/06/23 at 1045, Preprocedure New Bag/Syringe/Bottle 03/06/2023 10:00 AM EDT 30 mL/hr 30 mL/hr Hand, Right midazolam 1-5 mg injection (VERSED) 1-5 mg, INTRAVENOUS, DIRECTED, Starting on Mon03/06/23 at 1030, Until Mon03/06/23 at 1429, DOSING DIRECTED BY PHYSICIAN FOR PROCEDURAL SEDATION ONLY, Intraprocedure Given 03/06/2023 10:27 AM EDT 2 mg Given 03/06/2023 10:24 AM EDT 3 mg Additional Source Comments (unrecognized sect ion and content) No Status Records FoundNo Status Records FoundNo Status Records FoundNo Status Records FoundNo Status Records Found INFORMATION SOURCE (unrecogn ized section and content) DATE CREATED AUTHOR 12/25/2018 [facility] [place], operated [facility] DATE CREATED AUTHOR AUTHOR'S ORGANIZ ATION 07/05/2019 [facility] DATE CREATED AUTHOR AUTHOR'S ORGANIZ ATION 03/04/2023 [facility] DATE CREATED AUTHOR AUTHOR'S ORGANIZ ATION 03/11/2025 [facility] DATE CREATED AUTHOR AUTHOR'S ORGANIZ ATION 06/15/2025 [facility] Source Comments (unrecognize d section and content) In the event this informatio n is protected by the Federal Confidentiality of Alcohol and Drug Abuse Patient Records regulations: The Federal rules restrict any use of the information to criminally investigate or prosecute any alcohol or drug abuse patient.[facility] the event this information is protected by the Federal Confidentiality of Alcohol and Drug Abuse Patient Records regulations: The Federal rules restrict any use of the information to criminally investigate or prosecute any alcohol or drug abuse patient.[facility] the event this information is protected by the Federal Confidentiality of Alcohol and Drug Abuse Patient Records regulations: The Federal rules restrict any use of the information to criminally investigate or prosecute any alcohol or drug abuse patient.[facility]In the event this information is protected by the Federal Confidentiality of Alcohol and Drug Abuse Patient Records regulations: The Federal rules restrict any use of the information to criminally investigate or prosecute any alcohol or drug abuse patient.[facility]In the event this information is protected by the Federal Confidentiality of Alcohol and Drug Abuse Patient Records regulations: The Federal rules restrict any use of the information to criminally investigate or prosecute any alcohol or drug abuse patient.[facility]In the event this information is protected by the Federal Confidentiality of Alcohol and Drug Abuse Patient Records regulations: The Federal rules restrict any use of the information to criminally investigate or prosecute any alcohol or drug abuse patient.[facility]In the event this information is protected by the Federal Confidentiality of Alcohol and Drug Abuse Patient Records regulations: The Federal rules restrict any use of the information to criminally investigate or prosecute any alcohol or drug abuse patient.[facility]In the event this information is protected by the Federal Confidentiality of Alcohol and Drug Abuse Patient Records regulations: The Federal rules restrict any use of the information to criminally investigate or prosecute any alcohol or drug abuse patient.[facility]In the event this information is protected by the Federal Confidentiality of Alcohol and Drug Abuse Patient Records regulations: The Federal rules restrict any use of the information to criminally investigate or prosecute any alcohol or drug abuse patient.[facility] HospitalIn the event this information is protected by the Federal Confidentiality of Alcohol and Drug Abuse Patient Records regulations: The Federal rules restrict any use of the information to criminally investigate or prosecute any alcohol or drug abuse patient.[facility]In the event this information is protected by the Federal Confidentiality of Alcohol and Drug Abuse Patient Records regulations: The Federal rules restrict any use of the information to criminally investigate or prosecute any alcohol or drug abuse patient.[facility]In the event this information is protected by the Federal Confidentiality of Alcohol and Drug Abuse Patient Records regulations: The Federal rules restrict any use of the information to criminally investigate or prosecute any alcohol or drug abuse patient.[facility]In the event this information is protected by the Federal Confidentiality of Alcohol and Drug Abuse Patient Records regulations: The Federal rules restrict any use of the information to criminally investigate or prosecute any alcohol or drug abuse patient.[facility] HospitalIn the event this information is protected by the Federal Confidentiality of Alcohol and Drug Abuse Patient Records regulations: The Federal rules restrict any use of the information to criminally investigate or prosecute any alcohol or drug abuse patient.[facility]In the event this information is protected by the Federal Confidentiality of Alcohol and Drug Abuse Patient Records regulations: The Federal rules restrict any use of the information to criminally investigate or prosecute any alcohol or drug abuse patient.[facility]In the event this information is protected by the Federal Confidentiality of Alcohol and Drug Abuse Patient Records regulations: The Federal rules restrict any use of the information to criminally investigate or prosecute any alcohol or drug abuse patient.[facility] HospitalIn the event this information is protected by the Federal Confidentiality of Alcohol and Drug Abuse Patient Records regulations: The Federal rules restrict any use of the information to criminally investigate or prosecute any alcohol or drug abuse patient.[facility] HospitalIn the event this information is protected by the Federal Confidentiality of Alcohol and Drug Abuse Patient Records regulations: The Federal rules restrict any use of the information to criminally investigate or prosecute any alcohol or drug abuse patient.[facility] HospitalIn the event this information is protected by the Federal Confidentiality of Alcohol and Drug Abuse Patient Records regulations: The Federal rules restrict any use of the information to criminally investigate or prosecute any alcohol or drug abuse patient.[facility] HospitalIn the event this information is protected by the Federal Confidentiality of Alcohol and Drug Abuse Patient Records regulations: The Federal rules restrict any use of the information to criminally investigate or prosecute any alcohol or drug abuse patient.[facility] HospitalIn the event this information is protected by the Federal Confidentiality of Alcohol and Drug Abuse Patient Records regulations: The Federal rules restrict any use of the information to criminally investigate or prosecute any alcohol or drug abuse patient.[facility] HospitalIn the event this information is protected by the Federal Confidentiality of Alcohol and Drug Abuse Patient Records regulations: The Federal rules restrict any use of the information to criminally investigate or prosecute any alcohol or drug abuse patient.[facility] HospitalIn the event this information is protected by the Federal Confidentiality of Alcohol and Drug Abuse Patient Records regulations: The Federal rules restrict any use of the information to criminally investigate or prosecute any alcohol or drug abuse patient.[facility]In the event this information is protected by the Federal Confidentiality of Alcohol and Drug Abuse Patient Records regulations: The Federal rules restrict any use of the information to criminally investigate or prosecute any alcohol or drug abuse patient.[facility]In the event this information is protected by the Federal Confidentiality of Alcohol and Drug Abuse Patient Records regulations: The Federal rules restrict any use of the information to criminally investigate or prosecute any alcohol or drug abuse patient.[facility] HospitalIn the event this information is protected by the Federal Confidentiality of Alcohol and Drug Abuse Patient Records regulations: The Federal rules restrict any use of the information to criminally investigate or prosecute any alcohol or drug abuse patient.[facility] HospitalIn the event this information is protected by the Federal Confidentiality of Alcohol and Drug Abuse Patient Records regulations: The Federal rules restrict any use of the information to criminally investigate or prosecute any alcohol or drug abuse patient.[facility]In the event this information is protected by the Federal Confidentiality of Alcohol and Drug Abuse Patient Records regulations: The Federal rules restrict any use of the information to criminally investigate or prosecute any alcohol or drug abuse patient.[facility] HospitalIn the event this information is protected by the Federal Confidentiality of Alcohol and Drug Abuse Patient Records regulations: The Federal rules restrict any use of the information to criminally investigate or prosecute any alcohol or drug abuse patient.[facility] HospitalIn the event this information is protected by the Federal Confidentiality of Alcohol and Drug Abuse Patient Records regulations: The Federal rules restrict any use of the information to criminally investigate or prosecute any alcohol or drug abuse patient.[facility]In the event this information is protected by the Federal Confidentiality of Alcohol and Drug Abuse Patient Records regulations: The Federal rules restrict any use of the information to criminally investigate or prosecute any alcohol or drug abuse patient.[facility]In the event this information is protected by the Federal Confidentiality of Alcohol and Drug Abuse Patient Records regulations: The Federal rules restrict any use of the information to criminally investigate or prosecute any alcohol or drug abuse patient.[facility]In the event this information is protected by the Federal Confidentiality of Alcohol and Drug Abuse Patient Records regulations: The Federal rules restrict any use of the information to criminally investigate or prosecute any alcohol or drug abuse patient.[facility]In the event this information is protected by the Federal Confidentiality of Alcohol and Drug Abuse Patient Records regulations: The Federal rules restrict any use of the information to criminally investigate or prosecute any alcohol or drug abuse patient.[facility]In the event this information is protected by the Federal Confidentiality of Alcohol and Drug Abuse Patient Records regulations: The Federal rules restrict any use of the information to criminally investigate or prosecute any alcohol or drug abuse patient.[facility]In the event this information is protected by the Federal Confidentiality of Alcohol and Drug Abuse Patient Records regulations: The Federal rules restrict any use of the information to criminally investigate or prosecute any alcohol or drug abuse patient.[facility] HospitalIn the event this information is protected by the Federal Confidentiality of Alcohol and Drug Abuse Patient Records regulations: The Federal rules restrict any use of the information to criminally investigate or prosecute any alcohol or drug abuse patient.[facility] HospitalIn the event this information is protected by the Federal Confidentiality of Alcohol and Drug Abuse Patient Records regulations: The Federal rules restrict any use of the information to criminally investigate or prosecute any alcohol or drug abuse patient.[facility]In the event this information is protected by the Federal Confidentiality of Alcohol and Drug Abuse Patient Records regulations: The Federal rules restrict any use of the information to criminally investigate or prosecute any alcohol or drug abuse patient.[facility]In the event this information is protected by the Federal Confidentiality of Alcohol and Drug Abuse Patient Records regulations: The Federal rules restrict any use of the information to criminally investigate or prosecute any alcohol or drug abuse patient.[facility] HospitalIn the event this information is protected by the Federal Confidentiality of Alcohol and Drug Abuse Patient Records regulations: The Federal rules restrict any use of the information to criminally investigate or prosecute any alcohol or drug abuse patient.[facility]In the event this information is protected by the Federal Confidentiality of Alcohol and Drug Abuse Patient Records regulations: The Federal rules restrict any use of the information to criminally investigate or prosecute any alcohol or drug abuse patient.[facility]In the event this information is protected by the Federal Confidentiality of Alcohol and Drug Abuse Patient Records regulations: The Federal rules restrict any use of the information to criminally investigate or prosecute any alcohol or drug abuse patient.[facility]In the event this information is protected by the Federal Confidentiality of Alcohol and Drug Abuse Patient Records regulations: The Federal rules restrict any use of the information to criminally investigate or prosecute any alcohol or drug abuse patient.[facility] HospitalIn the event this information is protected by the Federal Confidentiality of Alcohol and Drug Abuse Patient Records regulations: The Federal rules restrict any use of the information to criminally investigate or prosecute any alcohol or drug abuse patient.[facility] HospitalIn the event this information is protected by the Federal Confidentiality of Alcohol and Drug Abuse Patient Records regulations: The Federal rules restrict any use of the information to criminally investigate or prosecute any alcohol or drug abuse patient.[facility] HospitalIn the event this information is protected by the Federal Confidentiality of Alcohol and Drug Abuse Patient Records regulations: The Federal rules restrict any use of the information to criminally investigate or prosecute any alcohol or drug abuse patient.[facility] HospitalIn the event this information is protected by the Federal Confidentiality of Alcohol and Drug Abuse Patient Records regulations: The Federal rules restrict any use of the information to criminally investigate or prosecute any alcohol or drug abuse patient.[facility]In the event this information is protected by the Federal Confidentiality of Alcohol and Drug Abuse Patient Records regulations: The Federal rules restrict any use of the information to criminally investigate or prosecute any alcohol or drug abuse patient.[facility] HospitalIn the event this information is protected by the Federal Confidentiality of Alcohol and Drug Abuse Patient Records regulations: The Federal rules restrict any use of the information to criminally investigate or prosecute any alcohol or drug abuse patient.[facility] HospitalIn the event this information is protected by the Federal Confidentiality of Alcohol and Drug Abuse Patient Records regulations: The Federal rules restrict any use of the information to criminally investigate or prosecute any alcohol or drug abuse patient.[facility]In the event this information is protected by the Federal Confidentiality of Alcohol and Drug Abuse Patient Records regulations: The Federal rules restrict any use of the information to criminally investigate or prosecute any alcohol or drug abuse patient.[facility]In the event this information is protected by the Federal Confidentiality of Alcohol and Drug Abuse Patient Records regulations: The Federal rules restrict any use of the information to criminally investigate or prosecute any alcohol or drug abuse patient.[facility]In the event this information is protected by the Federal Confidentiality of Alcohol and Drug Abuse Patient Records regulations: The Federal rules restrict any use of the information to criminally investigate or prosecute any alcohol or drug abuse patient.[facility]In the event this information is protected by the Federal Confidentiality of Alcohol and Drug Abuse Patient Records regulations: The Federal rules restrict any use of the information to criminally investigate or prosecute any alcohol or drug abuse patient.[facility]In the event this information is protected by the Federal Confidentiality of Alcohol and Drug Abuse Patient Records regulations: The Federal rules restrict any use of the information to criminally investigate or prosecute any alcohol or drug abuse patient.[facility] HospitalIn the event this information is protected by the Federal Confidentiality of Alcohol and Drug Abuse Patient Records regulations: The Federal rules restrict any use of the information to criminally investigate or prosecute any alcohol or drug abuse patient.[facility] HospitalIn the event this information is protected by the Federal Confidentiality of Alcohol and Drug Abuse Patient Records regulations: The Federal rules restrict any use of the information to criminally investigate or prosecute any alcohol or drug abuse patient.[facility] HospitalIn the event this information is protected by the Federal Confidentiality of Alcohol and Drug Abuse Patient Records regulations: The Federal rules restrict any use of the information to criminally investigate or prosecute any alcohol or drug abuse patient.[facility] HospitalIn the event this information is protected by the Federal Confidentiality of Alcohol and Drug Abuse Patient Records regulations: The Federal rules restrict any use of the information to criminally investigate or prosecute any alcohol or drug abuse patient.[facility] HospitalIn the event this information is protected by the Federal Confidentiality of Alcohol and Drug Abuse Patient Records regulations: The Federal rules restrict any use of the information to criminally investigate or prosecute any alcohol or drug abuse patient.[facility]In the event this information is protected by the Federal Confidentiality of Alcohol and Drug Abuse Patient Records regulations: The Federal rules restrict any use of the information to criminally investigate or prosecute any alcohol or drug abuse patient.[facility] HospitalIn the event this information is protected by the Federal Confidentiality of Alcohol and Drug Abuse Patient Records regulations: The Federal rules restrict any use of the information to criminally investigate or prosecute any alcohol or drug abuse patient.[facility]In the event this information is protected by the Federal Confidentiality of Alcohol and Drug Abuse Patient Records regulations: The Federal rules restrict any use of the information to criminally investigate or prosecute any alcohol or drug abuse patient.[facility]In the event this information is protected by the Federal Confidentiality of Alcohol and Drug Abuse Patient Records regulations: The Federal rules restrict any use of the information to criminally investigate or prosecute any alcohol or drug abuse patient.[facility] HospitalIn the event this information is protected by the Federal Confidentiality of Alcohol and Drug Abuse Patient Records regulations: The Federal rules restrict any use of the information to criminally investigate or prosecute any alcohol or drug abuse patient.[facility] HospitalIn the event this information is protected by the Federal Confidentiality of Alcohol and Drug Abuse Patient Records regulations: The Federal rules restrict any use of the information to criminally investigate or prosecute any alcohol or drug abuse patient.[facility]In the event this information is protected by the Federal Confidentiality of Alcohol and Drug Abuse Patient Records regulations: The Federal rules restrict any use of the information to criminally investigate or prosecute any alcohol or drug abuse patient.[facility]In the event this information is protected by the Federal Confidentiality of Alcohol and Drug Abuse Patient Records regulations: The Federal rules restrict any use of the information to criminally investigate or prosecute any alcohol or drug abuse patient.[facility]In the event this information is protected by the Federal Confidentiality of Alcohol and Drug Abuse Patient Records regulations: The Federal rules restrict any use of the information to criminally investigate or prosecute any alcohol or drug abuse patient.[facility]In the event this information is protected by the Federal Confidentiality of Alcohol and Drug Abuse Patient Records regulations: The Federal rules restrict any use of the information to criminally investigate or prosecute any alcohol or drug abuse patient.[facility]In the event this information is protected by the Federal Confidentiality of Alcohol and Drug Abuse Patient Records regulations: The Federal rules restrict any use of the information to criminally investigate or prosecute any alcohol or drug abuse patient.[facility]In the event this information is protected by the Federal Confidentiality of Alcohol and Drug Abuse Patient Records regulations: The Federal rules restrict any use of the information to criminally investigate or prosecute any alcohol or drug abuse patient.[facility]In the event this information is protected by the Federal Confidentiality of Alcohol and Drug Abuse Patient Records regulations: The Federal rules restrict any use of the information to criminally investigate or prosecute any alcohol or drug abuse patient.[facility] Hospital[facility] the event this information is protected by the Federal Confidentiality of Alcohol and Drug Abuse Patient Records regulations: The Federal rules restrict any use of the information to criminally investigate or prosecute any alcohol or drug abuse patient.[facility] HospitalIn the event this information is protected by the Federal Confidentiality of Alcohol and Drug Abuse Patient Records regulations: The Federal rules restrict any use of the information to criminally investigate or prosecute any alcohol or drug abuse patient.[facility] Hospital[facility] the event this information is protected by the Federal Confidentiality of Alcohol and Drug Abuse Patient Records regulations: The Federal rules restrict any use of the information to criminally investigate or prosecute any alcohol or drug abuse patient.[facility] Hospital[facility] the event this information is protected by the Federal Confidentiality of Alcohol and Drug Abuse Patient Records regulations: The Federal rules restrict any use of the information to criminally investigate or prosecute any alcohol or drug abuse patient.[facility] Hospital[facility] the event this information is protected by the Federal Confidentiality of Alcohol and Drug Abuse Patient Records regulations: The Federal rules restrict any use of the information to criminally investigate or prosecute any alcohol or drug abuse patient.[facility] HospitalIn the event this information is protected by the Federal Confidentiality of Alcohol and Drug Abuse Patient Records regulations: The Federal rules restrict any use of the information to criminally investigate or prosecute any alcohol or drug abuse patient.[facility] HospitalIn the event this information is protected by the Federal Confidentiality of Alcohol and Drug Abuse Patient Records regulations: The Federal rules restrict any use of the information to criminally investigate or prosecute any alcohol or drug abuse patient.[facility] Reason for Visit (unrecogniz ed section and content) Reason Comments Patient Question Reason Comments Prescription Clarification Reason Comments Patient Update Reason Comments low BP problems Reason Comments Results Appointment Reason Comments Follow Up Reason Comments medication question Reason Comments Results Reason Comments Wellness Many complaints Reason Comments Patient Question Results Medication Question Reason Onset Date Comments Refill Request 12/17/2022 Reason Comments Follow Up Reason Comments Orders Reason Comments Appointment colonoscopy biopsy results Reason Comments Referral to GI Reason Comments Follow Up Reason Comments Appointment Reason Onset Date Comments Refill Request 08/20/2023 Specialty Diagnoses / Procedures Referred By Contac t Referred To Contact [facility] IM[facility] Diagnoses Unintentional weight change Myalgia Muscle weakness of extremity Fatigue, unspecified type Weight loss Procedures MRI BRAIN WO/W IVCON MRI BRAIN BRAIN STEM W/O W/CONTRAST MATERIAL Alverto Ceja, DO [address] [place] [address] Mr Imaging [place] [address] Referral ID Status Reason Start Date Expiration Date V isits Requested Visits Authorized [id number] Closed Auto-Generate d Referral 03/27/2023 11/05/2023 1 1 Reason Onset Date Comments Refill Request 02/23/2024 Reason Comments Yearly Exam Reason Comments Post Dc Program Call - Needs Attn Reason Comments Results Reason Comments Insurance Inquiry Reason Comments Referral Information Schedule Evaluation Reason Comments Radiology CT Specialty Diagnoses / Procedures Referred By Contac t Referred To Contact CT IMAGING Diagnoses Myalgia Aortic dilatation (HCC) Aortic root dilation (HCC) Palpitations Moderate aortic stenosis Bicuspid aortic valve Palpitation Bradycardia Chest pain, unspecified type Celiac disease Disorder of artery or arteriole (HCC) Pre-operative cardiovascular examination Procedures CTA CHEST (GATED) W IVCON CT ANGIOGRAPHY CHEST W/CONTRAST/NONCONTRAST Thomas Montalvo MD [address] [place] [id number] [facility] [place] [address] Referral ID Status Reason Start Date Expiration Date V isits Requested Visits Authorized [id number] Closed Auto-Generate d Referral 06/17/2024 11/05/2024 1 1 Reason Comments Schedule Surgery Pre-op checklist Reason Comments Patient Education Reason Comments Spirometry Specialty Diagnoses / Procedures Referred By Contac t Referred To Contact [facility] Diagnoses Moderate aortic stenosis Bicuspid aortic valve Aortic dilatation (HCC) Myalgia Palpitation Bradycardia Celiac disease Aortic root dilation (HCC) Pre-operative cardiovascular examination Procedures SPIROMETRY BASELINE ONLY SPMTRY W/VC EXPIRATORY CANDACE W/WO MXML VOL VNTJ Thomas Montalvo MD [address] [place] [address] [facility] [address] [place] [id number] Referral ID Status Reason Start Date Expiration Date V isits Requested Visits Authorized [id number] Closed Auto-Generate d Referral 06/26/2024 07/26/2025 1 1 Specialty Diagnoses / Procedures Referred By Lilli t Referred To Contact [facility] Diagnoses Moderate aortic stenosis Bicuspid aortic valve Aortic dilatation (HCC) Myalgia Palpitation Bradycardia Celiac disease Aortic root dilation (HCC) Pre-operative cardiovascular examination Procedures LUNG DIFFUSION CAPACITY (DLCO) [place] [address] [place] [address] [facility] [address] [place] [id number] Referral ID Status Reason Start Date Expiration Date V isits Requested Visits Authorized [id number] Closed Auto-Generate d Referral 06/26/2024 07/26/2025 1 1 Reason Comments Pre-Op Exam Reason Comments Post Dc Program Call - Needs Attn Incisi on/ suture question Reason Comments Hospital F/U aortic stenosis, sut ures in neck, follow up with cardio in AUG. Reason Comments Patient Update Thyroid Reason Comments Refill Request Reason Onset Date Comments Refill Request 08/29/2024 Reason Comments Eye Problem Double vision interm ittent x1 year, last eye exam 01/07/25 spasms in legs Reason Comments Patient Question re: thyroid med incr ease Reason Onset Date Comments Refill Request 02/20/2025 Care Teams (unrecognized sec tion and content) Client Director Relationship Specialty Start Date End Date Alverto Ceja DO [address] [place], [place] [address] PCP - General Family Practice 08/07/19 Client Director Relationship Specialty Start Date End Date Alverto Cjea DO [address] [place] [address] PCP - General Family Practice 08/07/19 Client Director Relationship Specialty Start Date End Date Ceja, Alverto L, DO [address] [place] [address] PCP - General Family Practice 08/07/19 Client Director Relationship Specialty Start Date End Date Alverto Ceja, DO [address] [place] [address] PCP - General Family Practice 08/07/19 Client Director Relationship Specialty Start Date End Date Alverto Ceja, DO [address] [place] [address] PCP - General Family Practice 08/07/19 Client Director Relationship Specialty Start Date End Date Alverto Ceja, DO [address] [place] [address] PCP - General Family Practice 08/07/19 Client Director Relationship Specialty Start Date End Date Alverto Ceja, DO [address] [place] [address] PCP - General Family Practice 08/07/19 Client Director Relationship Specialty Start Date End Date Alverto Ceja, DO [address] [place] [address] PCP - General Family Practice 08/07/19 Client Director Relationship Specialty Start Date End Date Alverto Ceja, DO [address] [place] [address] PCP - General Family Medicine 08/07/19 Client Director Relationship Specialty Start Date End Date Alverto Ceja, DO [address] [place] [address] PCP - General Family Medicine 08/07/19 Client Director Relationship Specialty Start Date End Date Alverto Ceja, DO [address] [place] [address] PCP - General Family Medicine 08/07/19 Client Director Relationship Specialty Start Date End Date Alverto Ceja, DO [address] [place] [address] PCP - General Family Medicine 08/07/19 Client Director Relationship Specialty Start Date End Date Alverto Ceja, DO [address] [place] [address] PCP - General Family Medicine 08/07/19 Client Director Relationship Specialty Start Date End Date Alverto Ceja, DO [address] [place] [address] PCP - General Family Medicine 08/07/19 Client Director Relationship Specialty Start Date End Date Alverto Ceja, DO [address] [place] [address] PCP - General Family Medicine 08/07/19 Client Director Relationship Specialty Start Date End Date Alverto Ceja, DO [address] [place] [address] PCP - General Family Medicine 08/07/19 Client Director Relationship Specialty Start Date End Date Alverto Ceja, DO [address] [place] [address] PCP - General Family Medicine 08/07/19 Client Director Relationship Specialty Start Date End Date Alverto Ceja, DO [address] [place] [address] PCP - General Family Medicine 08/07/19 Client Director Relationship Specialty Start Date End Date Alverto Ceja, DO [address] [place] [address] PCP - General Family Medicine 08/07/19 Team Status: Active Member Role Status Dates Dr. Alverto Ceja DO Primary Care Provider Active Team Status: Inactive Member Role Status Dates Dr. Alverto Ceja DO Primary Care Pr ovider, Attending Provider, Referring Provider Active Client Director Relationship Specialty Start Date End Date Alverto Ceja DO [address] [place] [address] PCP - General Family Medicine 08/07/19 Team Status: Inactive Member Role Status Dates Dr. Alverto Ceja DO Primary Care Provider, Referr ing Provider Active Taylor Alicea PRODUCTION SKI REPAIRER, PRODUCTION SKI REPAIRER-C Attending Provider Active Team Status: Inactive Member Role Status Dates Dr. Alverto Ceja DO Primary Care Provider Active Dr. Giovany Bright MD Attending Provider Active Team Status: Inactive Member Role Status Dates Dr. Alverto Ceja DO Primary Care Provider, Referr ing Provider Active Dr. Cam Gabriel , Attending Provider Active Team Status: Inactive Member Role Status Dates Dr. Alverto Ceja DO Primary Care Provider Active Taylor Alicea PRODUCTION SKI REPAIRER, PRODUCTION SKI REPAIRER-C Attending Provider, Referrin g Provider Active Team Status: Active Member Role Status Dates Dr. Alverto Ceja DO Primary Care Provider Active Taylor Alicea PRODUCTION SKI REPAIRER, PRODUCTION SKI REPAIRER-C Attending Provider, Referrin g Provider Active Client Director Relationship Specialty Start Date End Date Alverto Ceja DO [address] [place] [address] PCP - General Family Medicine 08/07/19 Client Director Relationship Specialty Start Date End Date Alverto Ceja DO [address] [place] [address] PCP - General Family Medicine 08/07/19 Client Director Relationship Specialty Start Date End Date Alverto Ceja DO [address] [place] [address] PCP - General Family Medicine 08/07/19 Team Status: Inactive Member Role Status Dates Dr. Alverto Ceja DO Primary Care Provider Active Dr. Cam Gabriel DO Attending Provider, Referring Provider Active Client Director Relationship Specialty Start Date End Date Alverto Ceja DO [address] [place] [address] PCP - General Family Medicine 08/07/19 Client Director Relationship Specialty Start Date End Date Alverto Ceja DO [address] [facility] [address] PCP - General Family Medicine 08/07/19 Client Director Relationship Specialty Start Date End Date Alverto Ceja DO [address] [facility] [address] PCP - General Family Medicine 08/07/19 Client Director Relationship Specialty Start Date End Date Alverto Ceja DO [address] [place] [address] PCP - General Family Medicine 08/07/19 Client Director Relationship Specialty Start Date End Date Alverto Ceja DO [address] [place] [address] PCP - General Family Medicine 08/07/19 Client Director Relationship Specialty Start Date End Date Alverto Ceja DO [address] [facility] [address] PCP - General Family Medicine 08/07/19 Client Director Relationship Specialty Start Date End Date Alverto Ceja DO [address] [facility] [address] PCP - General Family Medicine 08/07/19 Client Director Relationship Specialty Start Date End Date Alverto Ceja DO [address] [facility] [address] PCP - General Family Medicine 08/07/19 Client Director Relationship Specialty Start Date End Date Alverto Ceja DO [address] [place] [address] PCP - General Family Medicine 08/07/19 Thomas Montalvo MD [address] [place] [address] Surgeon Cardiac Surg 06/12/24 Client Director Relationship Specialty Start Date End Date Alverto Ceja DO [address] [place] [address] PCP - General Family Medicine 08/07/19 Thomas Montalvo MD [address] [place] [address] Surgeon Cardiac Surg 06/12/24 Client Director Relationship Specialty Start Date End Date Alverto Ceja DO [address] [place] [address] PCP - General Family Medicine 08/07/19 Thomas Montalvo MD [address] [place] [address] Surgeon Cardiac Surg 06/12/24 Client Director Relationship Specialty Start Date End Date Alverto Ceja DO [address] [place] [address] PCP - General Family Medicine 08/07/19 Thomas Montalvo MD [address] [place], [place] [id number] Surgeon Cardiac Surg 06/12/24 Client Director Relationship Specialty Start Date End Date Alverto Ceja DO [address] [place] [address] PCP - General Family Medicine 08/07/19 Thomas Montalvo MD [address] [place], [place] [address] Surgeon Cardiac Surg 06/12/24 Client Director Relationship Specialty Start Date End Date Alverto Ceja DO [address] [place] [address] PCP - General Family Medicine 08/07/19 Thomas Montalvo MD [address] [place] [address] Surgeon Cardiac Surg 06/12/24 Client Director Relationship Specialty Start Date End Date Alverto Ceja DO [address] [place] [address] PCP - General Family Medicine 08/07/19 Thomas Montalvo MD [address] [place] [address] Surgeon Cardiac Surg 06/12/24 Client Director Relationship Specialty Start Date End Date Alverto Ceja DO [address] [place] [address] PCP - General Family Medicine 08/07/19 Thomas Montalvo MD [address] [place] [address] Surgeon Cardiac Surg 06/12/24 Client Director Relationship Specialty Start Date End Date Alverto Ceja DO [address] [place] [address] PCP - General Family Medicine 08/07/19 Thomas Montalvo MD [address] [place], [place] [address] Surgeon Cardiac Surg 06/12/24 Client Director Relationship Specialty Start Date End Date Alverto Ceja DO [address] [place] [address] PCP - General Family Medicine 08/07/19 Thomas Montalvo MD [address] [place] [address] Surgeon Cardiac Surg 06/12/24 Client Director Relationship Specialty Start Date End Date Alverto Ceja DO [address] [place] [address] PCP - General Family Medicine 08/07/19 Thomas Montalvo MD [address] [place] [address] Surgeon Cardiac Surg 06/12/24 Client Director Relationship Specialty Start Date End Date Alverto Ceja DO [address] [place] [address] PCP - General Family Medicine 08/07/19 Thomas Montalvo MD [address] [place] [address] Surgeon Cardiac Surg 06/12/24 Client Director Relationship Specialty Start Date End Date Alverto Ceja DO [address] [place] [address] PCP - General Family Medicine 08/07/19 Thomas Montalvo MD [address] [place] [address] Surgeon Cardiac Surg 06/12/24 Client Director Relationship Specialty Start Date End Date Alverto Ceja DO [address] [place] [address] PCP - General Family Medicine 08/07/19 Thomas Montalvo MD [address] [place] [address] Surgeon Cardiac Surg 06/12/24 Nilay Martinez MD Nutrition Worker 07/09/24 07/22/24 Client Director Relationship Specialty Start Date End Date Alverto Ceja DO [address] [place] [address] PCP - General Family Medicine 08/07/19 Thomas Montalvo MD [address] [place] [address] Surgeon Cardiac Surg 06/12/24 Nilay Martinez MD Nutrition Worker 07/09/24 07/23/24 Client Director Relationship Specialty Start Date End Date Alverto Ceja DO [address] [place] [address] PCP - General Family Medicine 08/07/19 Thomas Montalvo MD [address] [place] [address] Surgeon Cardiac Surg 06/12/24 Nilay Martinez MD Nutrition Worker 07/09/24 07/23/24 Client Director Relationship Specialty Start Date End Date Alverto Ceja DO [address] [place] [address] PCP - General Family Medicine 08/07/19 Thomas Montalvo MD [address] [place] [address] Surgeon Cardiac Surg 06/12/24 Nilay Martinez MD Nutrition Worker 07/09/24 07/23/24 Client Director Relationship Specialty Start Date End Date Alverto Ceja DO [address] [place] [address] PCP - General Family Medicine 08/07/19 Thomas Montalvo MD [address] [place] [address] Surgeon Cardiac Surg 06/12/24 Nilay Martinez MD Nutrition Worker 07/09/24 07/23/24 Client Director Relationship Specialty Start Date End Date Alverto Ceja DO [address] [place] [address] PCP - General Family Medicine 08/07/19 Thomas Montalvo MD [address] [place] [address] Surgeon Cardiac Surg 06/12/24 Nilay Martinez MD Nutrition Worker 07/09/24 07/23/24 Client Director Relationship Specialty Start Date End Date Alverto Ceja DO [address] [place] [address] PCP - General Family Medicine 08/07/19 Thomas Montalvo MD [address] [place] [address] Surgeon Cardiac Surg 06/12/24 Nilay Martinez MD Nutrition Worker 07/09/24 07/23/24 Client Director Relationship Specialty Start Date End Date Alverto Ceja DO [address] [place] [address] PCP - General Family Medicine 08/07/19 Thomas Montalvo MD [address] [place] [address] Surgeon Cardiac Surg 06/12/24 Nilay Martinez MD Nutrition Worker 07/09/24 07/23/24 Client Director Relationship Specialty Start Date End Date Alverto Ceja DO [address] [place] [address] PCP - General Family Medicine 08/07/19 Thomas Montalvo MD [address] [place] [address] Surgeon Cardiac Surg 06/12/24 Nilay Martinez MD Nutrition Worker 07/09/24 07/23/24 Client Director Relationship Specialty Start Date End Date Alverto Ceja DO [address] [place] [address] PCP - General Family Medicine 08/07/19 Thomas Montalvo MD [address] [place] [address] Surgeon Cardiac Surg 06/12/24 Nilay Martinez MD Nutrition Worker 07/09/24 07/23/24 Client Director Relationship Specialty Start Date End Date Alverto Ceja DO [address] [place] [address] PCP - General Family Medicine 08/07/19 Thomas Montalvo MD [address] [place] [address] Surgeon Cardiac Surg 06/12/24 Client Director Relationship Specialty Start Date End Date Alverto Ceja DO [address] [place] [address] PCP - General Family Medicine 08/07/19 Client Director Relationship Specialty Start Date End Date Alverto Ceja DO [address] [place] [address] PCP - General Family Medicine 08/07/19 Thomas Montalvo MD [address] [place] [address] Surgeon Cardiac Surg 06/12/24 Client Director Relationship Specialty Start Date End Date Alverto Ceja DO [address] [place] [address] PCP - General Family Medicine 08/07/19 Thomas Montalvo MD [address] [place] [address] Surgeon Cardiac Surg 06/12/24 Client Director Relationship Specialty Start Date End Date Alverto Ceja DO [address] [place] [address] PCP - General Family Medicine 08/07/19 Thomas Montalvo MD [address] [place], [place] [address] Surgeon Cardiac Surg 06/12/24 Dari Payton, CARDIAC CATHETERIZATION TECHNICIAN.TWIST PACKER [address] [place] [address] Nutrition Worker Family Medicine 10/13/24 Rosa Henson, CARDIAC CATHETERIZATION TECHNICIAN.TWIST PACKER [address] [facility] [address] Nutrition Worker Family Medicine 10/13/24 Client Director Relationship Specialty Start Date End Date Alverto Ceja DO [address] [facility] [address] PCP - General Family Medicine 08/07/19 Thomas Montalvo MD [address] [place] [address] Surgeon Cardiac Surg 06/12/24 Rosa Henson, CARDIAC CATHETERIZATION TECHNICIAN.TWIST PACKER [address] [facility] [address] Nutrition Worker Family Medicine 10/13/24 Client Director Relationship Specialty Start Date End Date Alverto Ceja DO [address] [facility] [address] PCP - General Family Medicine 08/07/19 Thomas Montalvo MD [address] [facility] [place] [address] Surgeon Cardiac Surg 06/12/24 SixtoRosa, CARDIAC CATHETERIZATION TECHNICIAN.TWIST PACKER [address] [facility] [address] Nutrition Worker Family Medicine 10/13/24 Client Director Relationship Specialty Start Date End Date Alverto Ceja DO [address] [facility] [address] PCP - General Family Medicine 08/07/19 Thomas Montalvo MD [address] [place] [address] Surgeon Cardiac Surg 06/12/24 Rosa Henson, CARDIAC CATHETERIZATION TECHNICIAN.TWIST PACKER [address] [facility] [address] Nutrition Worker Family Medicine 10/13/24 Client Director Relationship Specialty Start Date End Date Alverto Ceja DO [address] [facility] [address] PCP - General Family Medicine 08/07/19 Thomas Montalvo MD [address] [place] [address] Surgeon Cardiac Surg 06/12/24 Rosa Henson, CARDIAC CATHETERIZATION TECHNICIAN.TWIST PACKER [address] [place] [address] Nutrition Worker Family Medicine 10/13/24 Client Director Relationship Specialty Start Date End Date Alverto Ceja DO [address] [facility] [place] [address] PCP - General Family Medicine 08/07/19 Thomas Montalvo MD [address] [place] [address] Surgeon Cardiac Surg 06/12/24 Rosa Henson, CARDIAC CATHETERIZATION TECHNICIAN.TWIST PACKER [address] [facility] [address] Nutrition Worker Family Medicine 10/13/24 Client Director Relationship Specialty Start Date End Date Alverto Ceja DO [address] [place] [address] PCP - General Family Medicine 08/07/19 Thomas Montalvo MD [address] [place], [place] [address] Surgeon Cardiac Surg 06/12/24 Rosa Henson, CARDIAC CATHETERIZATION TECHNICIAN.TWIST PACKER [address] [place] [address] [facility] 10/13/24 Client Director Relationship Specialty Start Date End Date Alverto Ceja DO [address] [place] [address] PCP - General Family Medicine 08/07/19 Thomas Montalvo MD [address] [place], [place] [address] Surgeon Cardiac Surg 06/12/24 Rosa Henson, CARDIAC CATHETERIZATION TECHNICIAN.TWIST PACKER [address] [place] [address] [facility] 10/13/24 Myriam Duncan, CARDIAC CATHETERIZATION TECHNICIAN.TWIST PACKER [address] [place] [address] [facility] 04/21/25 Client Director Relationship Specialty Start Date End Date Alverto Ceja DO [address] [place] [address] PCP - General Family Medicine 08/07/19 Thomas Montalvo MD [address] [place], [place] [address] Surgeon Cardiac Surg 06/12/24 Rosa Henson, CARDIAC CATHETERIZATION TECHNICIAN.TWIST PACKER [address] [place] [address] [facility] 10/13/24 Myriam Duncan APRN.TWIST PACKER [address] [place] [address] [facility] 04/21/25 Client Director Relationship Specialty Start Date End Date Alverto Ceja DO [address] [place] [address] PCP - General Family Medicine 08/07/19 Thomas Montalvo MD [address] [place] [address] Surgeon Cardiac Surg 06/12/24 Rosa Henson, CARDIAC CATHETERIZATION TECHNICIAN.TWIST PACKER [address] [place] [address] [facility] 10/13/24 Myriam Duncan CARDIAC CATHETERIZATION TECHNICIAN.TWIST PACKER [address] [place] [address] [facility] 04/21/25 Client Director Relationship Specialty Start Date End Date Alverto Ceja DO [address] [place] [address] PCP - General Family Medicine 08/07/19 Thomas Montalvo MD [address] [place] [address] Surgeon Cardiac Surg 06/12/24 Rosa Henson, CARDIAC CATHETERIZATION TECHNICIAN.TWIST PACKER [address] [place] [address] [facility] 10/13/24 Myriam Duncan, CARDIAC CATHETERIZATION TECHNICIAN.TWIST PACKER [address] [place], [place] [address] [facility] 04/21/25 Client Director Relationship Specialty Start Date End Date Alverto Ceja DO [address] [place], [place] [address] PCP - General Family Medicine 08/07/19 Thomas Montalvo MD [address] [place] [address] Surgeon Cardiac Surg 06/12/24 Rosa Henson CARDIAC CATHETERIZATION TECHNICIAN.TWIST PACKER [address] [place], [place] [address] [facility] 10/13/24 Myriam Duncan, CARDIAC CATHETERIZATION TECHNICIAN.TWIST PACKER [address] [place], [place] [address] [facility] 04/21/25 Goals (unrecognized section and content) Goals may be documented in a n alternate sectionGoals may be documented in an alternate sectionGoals may be documented in an alternate sectionGoals may be documented in an alternate sectionGoals may be documented in an alternate sectionGoals may be documented in an alternate sectionGoals may be documented in an alternate section FOR RECORDS PERTAINING TO PATIENTS WHO ARE OR HAVE BEEN ENROLLED IN A CHEMICAL DEPENDENCY/SUBSTANCEABUSE PROGRAM, SOME INFORMATION MAY BE OMITTED. This clinical summary was aggregated from multiple sources. Caution should be exercised in using it in the provision of clinical care. This summary normalizes information from multiple sources, and as a consequence, information in this document may materially change the coding, format and clinical context of patient data. In addition, data may be omitted in some cases. CLINICAL DECISIONS SHOULD BE BASED ON THE PRIMARY CLINICAL RECORDS. [facility] [employer] provides no warranty or guarantee of the accuracy or completeness of information in this document.
== END | disposition home or self-care (01) ==
PROVIDERS: PCP Student in an Organized Health Care Education/Training Program; Referring Provider Nurse Practitioner Gerontology; Visit Provider Nurse Practitioner Gerontology
DX: I71.9 Aortic aneurysm of unspecified site, without rupture (principal); Z95.2 Presence of prosthetic heart valve
CPT/HCPCS: 93306